=== PATIENT | male | born 1945 | race Caucasian/White ===

== ENCOUNTER 2019-05-14 15:24 | Outpatient (CLI) | payer MEDICARE, SELFPAY ==
--- NOTE | ~2019-05-14 | XR_ITS ---
EXAMINATION: XR chest 2V DATE: 05/14/2019 16:10 INDICATION: COPD TECHNIQUE: PA and lateral views of the chest were obtained. COMPARISON: Chest radiograph dated 02/02/[address] dated 08/05/2018 FINDINGS: Subtle increased lucency and architectural distortion in the bilateral upper lung zones consistent wi th emphysema better appreciated on prior CT. Calcified left lower lobe nodule consistent with old gra nulomatous disease. No other airspace opacities, pulmonary edema, pleural effusion or pneumothorax. T he cardiomediastinal silhouette is normal. There are bridging osteophytes at multiple levels in the s pine, consistent with diffuse idiopathic skeletal hyperostosis (DISH). IMPRESSION: 1. Emphysema. No acute cardiopulmonary disease. Reviewed, dictated and finalized at location A. ATIENT PHLEBOTOMIST
--- NOTE | 2019-05-14 15:44 | ECG_ITS ---
Measurements Intervals [place] Rate: 70 P: 30 DE: 147 QRS: 28 QRSD: 116 T: 42 QT: 395 QTc: 426 Interpretive Statements SINUS RHYTHM INCOMPLETE RIGHT BUNDLE BRANCH BLOCK BORDERLINE ST-T WAVE ABNORMALITY- ANTERIOR LEADS BASELINE ARTIFACT- I, II, III, AVR, AVF, V5 BORDERLINE ECG Electronically Signed On 05-14-2019 16:54:27 SCREEN PRINTING LOADER UNLOADER by Lico Perez D.O.
[2019-05-14 16:08] LABS: Basophils Absolute Auto 0.1 K/mm3 (0.0-0.1); Basophils Percent Auto 0.5 % (0.2-1.2); Eosinophils Absolute Auto 0.1 K/mm3 (0-0.3); Eosinophils Percent Auto 1.2 % (0-4.4); Hematocrit 46.9 % (42.0-52.0); Hemoglobin 15.7 g/dL (14.0-18.0); Immature Granulocyte Absolute 0.05 K/mm3 (0.00-0.031); Immature Granulocyte Percent A 0.5 % (0-0.5); Lymphocytes Absolute Auto 1.84 K/mm3 (0.9-3.2); Lymphocytes Percent Auto 19.6 % (18.3-44.2); Mean Corpuscular HGB Conc 33.5 g/dl (32-36); Mean Corpuscular Hemoglobin 31.1 pg (26-34); Mean Corpuscular Volume 92.9 fl (80-100); Monocytes Absolute Auto 0.8 K/mm3 (0.1-0.6); Monocytes Percent Auto 8.7 % (2.6-8.5); Neutrophils Absolute Auto 6.5 K/mm3 (1.3-6.7); Neutrophils Percent Auto 69.5 % (45.5-73.1); Platelet Count Result 164 k/mm3 (150-375); Red Blood Count 5.05 M/mm3 (4.6-6.20); Red Cell Distribution Width 12.7 % (11.5-14.5); White Blood Count 9.4 K/mm3 (4.5-10.0)
[2019-05-14 16:23] LABS: Albumin Level 3.9 g/dL (3.5-5.1); Blood Urea Nitrogen 17 mg/dL (9-20); Calcium 9.3 mg/dL (8.4-10.2); Carbon Dioxide 28 mmol/L (22-30); Chloride 103 mmol/L (98-107); Estimated Glomerular Filt Rate > 60; Glucose 110 mg/dL (75-110); Potassium 3.7 mmol/L (3.4-5.0); Sodium 140 mmol/L (137-145)
[2019-05-14 16:30] LABS: Hemoglobin A1C 6.3 % (<5.7)
[2019-05-14 17:30] LABS: Urine Cotinine NEGATIVE
== END 2019-05-14 15:25 | disposition home or self-care (01) ==
PROVIDERS: PCP Internal Medicine; Visit Provider Orthopaedic Surgery
DX: Z01.818 Encounter for other preprocedural examination (principal); M17.11 Unilateral primary osteoarthritis, right knee; J43.9 Emphysema, unspecified
CPT/HCPCS: 36415; 71046; 80048; 80307; 82040; 83036; 85025; 87070; 87077; 87186; 93005

== ENCOUNTER 2019-06-02 00:21 | Day surgery (SDC) | payer MEDICARE, SELFPAY ==
[2019-05-14 15:10] VITALS: BMI 36.4
[2019-05-14 15:31] VITALS: BP 142/58; PULSE 70; RESP 18; TEMP 36.8; O2SAT 96
--- NOTE | 2019-05-31 14:42 | HP_ITS ---
DATE OF SERVICE: 06/02/2019 ADMIT DIAGNOSIS: Degenerative joint disease, right knee. HISTORY OF PRESENT ILLNESS: The patient is a 73-year-old male patient of Dr. Zavaleta, who presents today for right total knee arthroplasty. He has been having pain in his knee for several years. He has severe lateral compartment arthritis as well as rheumatoid arthritis, and he is on multiple medications for his rheumatoid as well as meloxicam daily. He is not getting improvement from nonsurgical treatment. He had a cortisone injection last October, which only helped for several weeks. He has reached a point where the pain is bothering him on a daily basis and he would rather proceed with total knee at this point rather than continuing nonsurgical treatment. PAST MEDICAL HISTORY: Again, he has had a history of rheumatoid arthritis. He does have a history of cancer in the past too. PAST SURGICAL HISTORY: He had low back surgery back in February 2018. He has had his left knee replaced more than [address] Andrade. CURRENT MEDICATIONS: He takes doxazosin 2 mg 2 tablets at bedtime, Enbrel injection, hydrochlorothiazide 25 mg daily. Long-time narcotic use, at this point he is using 5 mg hydrocodone 4-5 pills a day and has done this for over a couple of years, meloxicam 7.5 mg daily, omeprazole 40 mg daily, pravastatin 20 mg daily, prednisone 5 mg daily, and temazepam 15 mg at bedtime. ALLERGIES: ALLERGIC TO IODINE. SOCIAL HISTORY: He is a nonsmoker. PHYSICAL EXAM: VITAL SIGNS: He is 5 feet 7 inches, 240 pounds. BMI is 37.6. HEENT: Grossly normal. LUNGS: Clear bilaterally. HEART: Regular rate and rhythm. EXTREMITIES: The right leg, he has tingling in the lateral thigh and the anterior thigh, medial to the lateral lower leg and bottom of the foot as well as the front of the knee. States this is chronic from his previous back problems. Mild varus and valgus laxity to the knee. Range of motion is 5-130. Moderately large effusion. HIP: He has some mild groin pain with range of motion. Stinchfield is negative. 2+ dorsalis pedis and posterior tibial pulse. Absent knee jerk and ankle jerk on the right. 1+ edema in both lower extremities. 5/5 muscle strength in all muscle groups, right lower extremity. X-RAYS: Demonstrate [id number] arthritis, lateral compartment. He has a large loose body, posterior aspect of the knee, has 13.5 degrees of valgus alignment. IMPRESSION: The patient has severe lateral compartment arthritis, superimposed rheumatoid arthritis, continued pain in the knee. Would like to proceed with total knee. Surgical procedure as well as risks and complications were discussed. All questions were answered and we will proceed. The patient will stop his Enbrel 2 weeks prior to surgery, any aspirin, ibuprofen, or meloxicam 1 week prior to surgery. He will continue with his prednisone through the time of surgery, but we will use a week antibiotics postoperatively because of this. The patient has had a long-standing history of narcotic use and may have a difficult time with pain control and this was discussed in detail as well. The other risks and complications of surgery were discussed in detail and all questions were answered. We will proceed. The patient will see Dr. Zavaleta for presurgical clearance. His nasal swab did grow oxacillin-sensitive Staph aureus. He has been decolonizing as of 05/08. His hemoglobin is 15.7, platelets are 164, creatinine 1, GFR is greater than 60. D I MT: Shree
[2019-06-02] VITALS (11 sets, daily range): BP systolic 120–160; BP diastolic 50–75; PULSE 69–92; RESP 10–20; TEMP 36.2–37; O2SAT 92–100; BMI 36.2
--- NOTE | ~2019-06-02 | XR_ITS ---
EXAMINATION: XR knee RT 2V DATE: 06/02/2019 16:20 INDICATION: Postoperative evaluation following right total knee arthroplasty. TECHNIQUE: Anteroposterior and lateral views of the right knee were obtained. COMPARISON: None. FINDINGS: Right total knee arthroplasty with patellar resurfacing appears well seated and in near anatomic alig nment. No fractures identified. Expected postoperative subcutaneous and intra-articular gas. IMPRESSION: 1. Right total knee arthroplasty, negative for postoperative purposes. Reviewed, dictated and finalized at location A. [employer]
--- NOTE | 2019-06-02 08:28 | WPDANESEPPF ---
Anes - Initial Pre Proc Eval Procedure: Operation Date: 06/02/19 12:00 Proposed Procedures p Right Total Knee Arthroplasty - Toi Andrade MD Date/Time: 06/02/19 08:28 Surgeon: Toi Andrade MD Pre Op Diagnosis: OA Right Knee Patient Data Age: 73 Gender: M Height: 1.75 m Weight: 112 kg Last Vital Signs Temp 36.8 C 05/14/19 15:31 Pulse 70 05/14/19 15:31 Resp 18 05/14/19 15:31 BP 142/58 H 05/14/19 15:31 Pulse Ox 96 05/14/19 15:31 Allergies Allergy/AdvReac Type Severity Reaction Status Date / Time infliximab [From Remicade] Allergy Unknown Itching Verified 05/14/19 15:19 Contrast Media Allergy Severe HOT, HIVES Uncoded 05/14/19 15:20 Home Medications Medication Instructions Recorded Confirmed Type albuterol sulfate 2.5 mg INHALATION Q4H PRN 02/23/19 05/14/19 History albuterol sulfate 90 mcg/actuation 1 puff INHALATION PRN PRN 02/23/19 05/14/19 History aerosol inhaler aspirin 81 mg tablet,delayed 81 mg PO DAILY 02/23/19 05/14/19 History release budesonide-formoterol HFA 160 2 puff INHALATION PRN PRN 02/23/19 05/14/19 History mcg-4.5 mcg/actuation aerosol inhaler etanercept 50 mg/mL (1 mL) 50 mg SUB-Q WEEKLY 02/23/19 05/14/19 History subcutaneous pen injector ipratropium 0.5 mg-albuterol 3 mg 3 ml INHALATION PRN PRN 02/23/19 05/14/19 History (2.5 mg base)/3 mL nebulization soln meloxicam 7.5 mg tablet 7.5 mg PO DAILY tablet 02/23/19 05/14/19 History prednisone 5 mg tablet 10 mg PO HS tablet 02/23/19 05/14/19 History temazepam 30 mg capsule 30 mg PO .AT HS #30 cap 04/15/19 05/14/19 Rx magnesium 250 mg PO DAILY 05/14/19 05/14/19 History omega 2-rkc-ejp-fish oil [Fish Oil] 1 cap PO BID 05/14/19 05/14/19 History oxycodone-acetaminophen 0.5 tablet PO Q2H PRN 05/14/19 05/14/19 History diltiazem HCl 180 mg 180 mg PO DAILY #90 cap 05/18/19 Rx capsule,extended release 24 hr doxazosin 2 mg tablet 4 mg PO HS #180 tablet 05/18/19 Rx fluticasone propionate 50 2 spray NASAL PRN PRN #47.4 ml 05/18/19 Rx mcg/actuation nasal spray,suspension omeprazole 40 mg capsule,delayed 40 mg PO DAILY #90 cap 05/18/19 Rx release pravastatin 20 mg tablet 20 mg PO HS #90 tablet 05/18/19 Rx ECG: Date of Service: 05/14/19 Procedure(s): CA 12 lead EKG Accession Number(s): [id number] cc: ~ Measurements Intervals [place] Rate: 70 P: 30 [place]: 147 QRS: 28 QRSD: 116 T: 42 QT: 395 QTc: 426 Interpretive Statements SINUS RHYTHM INCOMPLETE RIGHT BUNDLE BRANCH BLOCK BORDERLINE ST-T WAVE ABNORMALITY- ANTERIOR LEADS BASELINE ARTIFACT- I, II, III, AVR, AVF, V5 BORDERLINE ECG Electronically Signed On 05-14-2019 16:54:27 BOILER SHOP SUPERVISOR by Lico Perez D.O. Dictated By: Lico Perez DO 05/14/19 1616 Patient hx anesthesia problems: none Family hx anesthesia problems: none PMFSH Past Medical History Medical History (Updated 06/02/19 @ 08:30 by Pankaj Werner MD) Benign essential hypertension Chronic low back pain Chronic obstructive pulmonary disease, unspecified Elevated LFTs Follicular lymphoma grade II, unspecified site Hypercholesterolemia Lung nodule Mixed hyperlipidemia Obesity Obstructive sleep apnea (adult) (pediatric) Rheumatoid arthritis involving multiple sites Splenomegaly Surgical History Surgical History (Updated 06/02/19 @ 08:30 by Pankaj Werner MD) History of back surgery Social History Social History Smoking status: Former smoker Smoking end date: 04/07/86 Alcohol intake: never Anes - Eval Final PreProcedure Day of Procedure 06/02/19 08:28 Patient weight: obese Heart: regular
[2019-06-02] MEDS: LACTATED RINGERS 1,000 ML 30 ML IV CONT ×2 (10:10→16:00)
[2019-06-02] MEDS: IBUPROFEN IV 800 MG/200 ML 800 MG/200 ML BAG 400 MG IVPB (10:46)
--- NOTE | 2019-06-02 12:14 | SUR.PREOP ---
1050-PT AND FAMILY AWARE PREVIOUS SURGEON DELAYS ROOM 30 MINUTES.
--- NOTE | 2019-06-02 12:26 | WPDHPUPDATE1 ---
History and Physical Update Update Date/Time: 06/02/19 12:26 History and Physical has been reviewed, including an updated exam of the patient. There are NO changes in the patient's condition.Also, Patient has had numbness entire left lower extremity since back surgery for sciatica in 2018. Motor function is intact right leg. Risks, benefits, and alternatives have been discussed and questions answered. Patient agrees to proceed with procedure.
[2019-06-02] MEDS: ceFAZolin SODIUM 1 GM VIAL 3 GM IRRIGATION (12:28)
[2019-06-02] MEDS: GENTAMICIN BONE CEMENT REFOBACIN 1 EACH TOPICAL (12:28)
[2019-06-02] MEDS: ceFAZolin 2 GM/D5W 50 ML 2 GM/50 ML BAG IVPB (12:28)
[2019-06-02] MEDS: ceFAZolin SODIUM 1 GM VIAL 2 GM IV PUSH (14:57)
--- NOTE | 2019-06-02 15:37 | PM.PROC ---
Procedure Note - Detailed Date of procedure: 06/02/19 Pre-op diagnosis: OA Right Knee Post-op diagnosis: same Procedure performed: Right total knee arthroplasty Description of procedure: Patient was brought to the operating room and general anesthesia was administered. the right knee was prepped draped usual fashion. He received 2 g of Ancef weight based vancomycin preoperatively 1 g of tranexamic acid. The right knee was prepped draped usual fashion the was exsanguinated tourniquet elevated to 300 mm of mercury. A 7 inch longitudinal midline incision was used vastus medialis splitting approach utilized. Infrapatellar and suprapatellar fat pads were excised partial synovectomy carried out because of the rheumatoid arthritis the plan to do a patellar resurfacing. The patella measured 24 mm in thickness was cut to 16 mm. A protector cap was placed on the bone the bone quality was very good. A guide dave was inserted down the femoral canal after aspiration canal contents use the 5? valgus cutting bushing 11 mm of bone removed the distal femur of the intact articular cartilage medially. This removed about 6 laterally. This next the tibial plateau was cut. our 1st cut did not quite get to the back of these defect of lateral tibial plateaus additional 2 mm of bone was removed medially and this gave us a flat tibial surface. Again bone quality was very good. Meniscal remnants were excised PCL wrist released and we had flexion gaps of 8 mm medially 14 laterally. there was hypoplasia lateral femoral condyle was bone wear. In extension the knee was a little bit tighter laterally than medially. He had a 10? anatomic valgus alignment preoperatively and did have some pseudolaxity to varus stress. I could not see an obvious difference in medial collateral with laminar spreaders. We avoided any released the medial capsule from the tibia. the sizing guide was placed on the femur and we externally rotated choosing 6? external rotation which was slightly internal the [place] that on not external to the trans epicondylar axis. posterior referencing pin guides were placed. the size 70 cutting block was going to be a little bit wide and anterior cut showed we had room to go down to a 67.5 without notching it I put a couple degrees of flexion on the distal femur to avoid notch and a femur was cut to the 70 cemented 67.5 vanguard femur. one trialing we had ample time 90? of flexion with 10 insert. The tibia was sized to a 71 which fit line to line livestock auctioneer lateral to anteromedial at the proper rotation determined off the anterior surface of the tibial plateau and medial 3rd tubercle and this foot alignment. This was punched. The 12 PS insert the trial little bit loose and had 90? and lacked about 5 or 6? of extension. we cut 2 more mm of bone from the distal femur and chamfer cuts revisited. Posterior femoral osteophyte was removed at this time central posterior capsular release performed and we trialed again with the 13 insert which had very nice stability at 90? with a stable anterior drawer opening up medially about 1 mm laterally the mm. We will lacked about 2? of extension and there was no play laterally only a mm opening medially. the IP band was palpably quite tight. I pie crusted the lateral capsule through the IP band which did nice job of providing very subtle degree relaxation without transverse release were visible separation. This gave us about a mm opening in extension medially but we still had a positive bounce. I elected to remove 1 more mm bone the distal femur chamfer cuts revisited and on Re trialing the knee came out to full extension with a negative bounce 1-2 mm medial and lateral opening at 0? and 5? of flexion appropriate stability 90? and gravity flexion was 140. The patella was sized to the 34 thin Annika house patellar thickness. patellar tracking was spared this point tourniquet up. Step drill was used to make multiple perforations in the denser bone of the tibial
[2019-06-02] MEDS: ACETAMINOPHEN 500 MG TABLET 1000 MG PO ×2 (17:16→23:37)
--- NOTE | 2019-06-02 17:31 | ADMGEN ---
This patient, Dilan Weaver, was admitted to [facility] S[facility] Room 323-01. Patient/family oriented to hospital policies and general routines including ID bracelet, bed and alarms, visiting hours, pain management, procedures, bathroom and other care routines, personal items, smoking policy, room service/diet, and visiting hours. Valuables list has been completed. Information on how to activate the Rapid Response Team has been discussed. Patient/Family are encouraged to report perceived risks to care and to ask questions if they do not understand what they are told or what they should do.
[2019-06-02] MEDS: DEXTROSE 5%/0.45% SOD CHL 1,000 ML 100 ML IV CONT (19:03)
[2019-06-02] MEDS: SENNOSIDES 8.6 MG TABLET PO (19:05)
[2019-06-02] MEDS: DOCUSATE SODIUM 100 MG CAPSULE PO (19:07)
[2019-06-02] MEDS: GABAPENTIN 300 MG CAPSULE PO (21:58)
[2019-06-02] MEDS: DOXAZOSIN MESYLATE 4 MG TABLET PO (21:58)
[2019-06-02] MEDS: PRAVASTATIN SODIUM 20 MG TABLET PO (21:58)
[2019-06-02] MEDS: predniSONE 10 MG TABLET PO (21:59)
[2019-06-03 02:15] VITALS: BP 144/66; PULSE 64; RESP 20; TEMP 36.8; O2SAT 93
[2019-06-03] MEDS: ONDANSETRON INJ 4 MG/2 ML VIAL IV PUSH (04:15)
[2019-06-03] MEDS: ACETAMINOPHEN 500 MG TABLET 1000 MG PO ×2 (05:41→11:35)
[2019-06-03 06:00] VITALS: BP 130/59; PULSE 70; RESP 20; TEMP 36.4; O2SAT 94
[2019-06-03 06:24] LABS: Basophils Percent Auto 0.1 % (0.2-1.2); Hematocrit 44.1 % (42.0-52.0); Hemoglobin 15.1 g/dL (14.0-18.0); Immature Granulocyte Absolute 0.07 K/mm3 (0.00-0.031); Immature Granulocyte Percent A 0.4 % (0-0.5); Lymphocytes Absolute Auto 0.81 K/mm3 (0.9-3.2); Lymphocytes Percent Auto 5.1 % (18.3-44.2); Mean Corpuscular HGB Conc 34.2 g/dl (32-36); Mean Corpuscular Hemoglobin 31.3 pg (26-34); Mean Corpuscular Volume 91.3 fl (80-100); Monocytes Absolute Auto 0.7 K/mm3 (0.1-0.6); Monocytes Percent Auto 4.4 % (2.6-8.5); Neutrophils Absolute Auto 14.2 K/mm3 (1.3-6.7); Platelet Count Result 149 k/mm3 (150-375); Red Blood Count 4.83 M/mm3 (4.6-6.20); Red Cell Distribution Width 12.5 % (11.5-14.5); White Blood Count 15.8 K/mm3 (4.5-10.0)
[2019-06-03 06:45] LABS: Blood Urea Nitrogen 10 mg/dL (9-20); Calcium 8.7 mg/dL (8.4-10.2); Carbon Dioxide 24 mmol/L (22-30); Chloride 98 mmol/L (98-107); Estimated CRCL calculation 78 ml/min; Estimated Glomerular Filt Rate > 60; Glucose 207 mg/dL (75-110); Potassium 4.1 mmol/L (3.4-5.0); Sodium 135 mmol/L (137-145)
[2019-06-03] MEDS: DEXTROSE 5%/0.45% SOD CHL 1,000 ML 100 ML IV CONT (06:53)
[2019-06-03] MEDS: GABAPENTIN 300 MG CAPSULE PO ×2 (06:53→14:33)
--- NOTE | 2019-06-03 07:07 | PM.PNORT ---
Progress Note: A&P Additional Plan POD 1 alert pt did have nausea last night,doing better today, pt was up to chair last night, pain is well controlled, wd-dry, wiggles toes, labs-noted, plan for pt to work with PT today then send home this afternoon Subjective Subjective Date/Time Seen: 06/03/19 07:07 Objective Data Vital Signs Vital Signs: Vital Signs - 24 hr 06/02/19 10:09 06/02/19 16:00 06/02/19 16:15 Temperature 36.7 C 36.2 C L Pulse Rate 92 83 85 Respiratory Rate 20 10 L 17 Blood Pressure 157/75 H 140/68 121/51 L Pulse Oximetry 94 94 92 06/02/19 16:30 06/02/19 16:45 06/02/19 17:00 Temperature 36.7 C Pulse Rate 77 72 70 Respiratory Rate 13 11 L 14 Blood Pressure 122/64 120/50 L 160/61 H Pulse Oximetry 93 96 97 06/02/19 17:19 06/02/19 18:00 06/02/19 19:20 Temperature 36.7 C 36.7 C 36.4 C Pulse Rate 71 69 70 Respiratory Rate 16 16 18 Blood Pressure 145/61 H 143/64 H 152/72 H Pulse Oximetry 97 100 99 06/02/19 20:56 06/02/19 21:28 06/03/19 02:15 Temperature 37.0 C 36.8 C Pulse Rate 75 79 64 Respiratory Rate 16 20 20 Blood Pressure 150/66 H 144/66 H Pulse Oximetry 96 98 93 06/03/19 06:00 Temperature 36.4 C L Pulse Rate 70 Respiratory Rate 20 Blood Pressure 130/59 L Pulse Oximetry 94 Intake/Output Intake/Output: Intake & Output 05/31/19 06/01/19 06/02/19 06/03/19 23:59 23:59 23:59 23:59 Intake Total 790 1600 Output Total 50 2000 Balance 740 -400 Meds/Results Medications: Active Medications Generic Name Dose Route Start Last Admin Trade Name Freq PRN Reason Stop Dose Admin Acetaminophen 1,000 mg 06/02/19 18:00 06/03/19 05:41 Tylenol Tablet PO 1,000 mg Q6HR ELIAS Administration Albuterol 2.5 mg 06/02/19 16:52 Albuterol Sulf Neb 2.5 Mg/3 Ml INHALATION Q4H PRN Shortness Of Breath Albuterol 1 puff 06/02/19 16:52 Proventil Hfa INHALATION PRN PRN Shortness Of Breath Apixaban 2.5 mg 06/03/19 09:00 Eliquis PO 06/14/19 21:01 Q12HR [facility] Budesonide/Formoterol Fumarate 2 puff 06/02/19 16:52 Symbicort 160-4.5 Mcg (*Sp) Inhaler INHALATION PRN PRN Shortness Of Breath Celecoxib 100 mg 06/03/19 08:00 Celebrex PO DAILY@0800 [facility] Cephalexin HCl 500 mg 06/03/19 21:00 Keflex Capsule PO 06/15/19 12:01 Q6HR [facility] Diltiazem HCl 180 mg 06/03/19 09:00 Cardizem Cd PO DAILY [facility] Docusate Sodium 100 mg 06/02/19 17:00 06/02/19 19:07 Colace Capsule PO 100 mg BID ELIAS Administration Doxazosin Mesylate 4 mg 06/02/19 21:00 06/02/19 21:58 Cardura PO 4 mg HS ELIAS Administration Fluticasone Propionate 2 spray 06/02/19 16:52 Flonase 0.05% Nasal [place] NASAL PRN PRN Congestion Gabapentin 300 mg 06/02/19 22:00 06/03/19 06:53 Neurontin PO 300 mg Q8HR ELIAS Administration Cefazolin Sodium 1 gm in 50 mls @ 100 mls/hr 06/02/19 23:00 06/03/19 07:00 Ancef 1 Gm/D5w 50 Ml Pm IVPB 06/03/19 15:29 100 mls/hr Q8H ELIAS Administration Vancomycin HCl 1,000 mg in 250 mls @ 250 mls/hr 06/02/19 22:00 06/02/19 22:55 Vancomycin 1,000 Mg/D5w 250 Ml IVPB 06/03/19 10:59 Infused Q12H ELIAS Infusion Dextrose/Sodium Chloride 1,000 mls @ 100 mls/hr 06/02/19 17:10 06/03/19 06:53 Dextrose 5% Sodium Chloride 0.45% IV CONT 100 mls/hr .Q10H ELIAS Administration Magnesium Gluconate 13.5 mg 06/03/19 09:00 Magonate PO 07/03/19 09:01 DAILY ELIAS Naloxone HCl 0.1 mg 06/02/19 16:52 Narcan IV PUSH Q2M PRN Opiate Reversal Non-Formulary Medication 3 ml 06/02/19 16:52 Ipratropium-Albuterol INHALATION PRN PRN Shortness Of Breath Oxycodone HCl 5 mg 06/02/19 17:00 06/03/19 04:57 Roxicodone Ir Tablet PO 5 mg Q4HR ELIAS Administration Oxycodone HCl 5 mg 06/02/19 16:52 06/02/19 20:10 Roxicodone Ir Tablet PO 5 mg Q4H PRN Administration Pain Rated 7-10 Oxycodone HCl 10 mg 06/02/19 21:00 05/09
--- NOTE | 2019-06-03 07:29 | PM.PNORT ---
Progress Note: A&P Additional Plan After discussing with Dr Andrade pt will resume his normal pain management regime [facility] Subjective Subjective Date/Time Seen: 06/03/19 07:29 Objective Data Vital Signs Vital Signs: Vital Signs - 24 hr 06/02/19 10:09 06/02/19 16:00 06/02/19 16:15 Temperature 36.7 C 36.2 C L Pulse Rate 92 83 85 Respiratory Rate 20 10 L 17 Blood Pressure 157/75 H 140/68 121/51 L Pulse Oximetry 94 94 92 06/02/19 16:30 06/02/19 16:45 06/02/19 17:00 Temperature 36.7 C Pulse Rate 77 72 70 Respiratory Rate 13 11 L 14 Blood Pressure 122/64 120/50 L 160/61 H Pulse Oximetry 93 96 97 06/02/19 17:19 06/02/19 18:00 06/02/19 19:20 Temperature 36.7 C 36.7 C 36.4 C Pulse Rate 71 69 70 Respiratory Rate 16 16 18 Blood Pressure 145/61 H 143/64 H 152/72 H Pulse Oximetry 97 100 99 06/02/19 20:56 06/02/19 21:28 06/03/19 02:15 Temperature 37.0 C 36.8 C Pulse Rate 75 79 64 Respiratory Rate 16 20 20 Blood Pressure 150/66 H 144/66 H Pulse Oximetry 96 98 93 06/03/19 06:00 Temperature 36.4 C L Pulse Rate 70 Respiratory Rate 20 Blood Pressure 130/59 L Pulse Oximetry 94 Intake/Output Intake/Output: Intake & Output 05/31/19 06/01/19 06/02/19 06/03/19 23:59 23:59 23:59 23:59 Intake Total 790 1600 Output Total 50 2000 Balance 740 -400 Meds/Results Medications: Active Medications Generic Name Dose Route Start Last Admin Trade Name Freq PRN Reason Stop Dose Admin Acetaminophen 1,000 mg 06/02/19 18:00 06/03/19 05:41 Tylenol Tablet PO 1,000 mg Q6HR ELIAS Administration Albuterol 2.5 mg 06/02/19 16:52 Albuterol Sulf Neb 2.5 Mg/3 Ml INHALATION Q4H PRN Shortness Of Breath Albuterol 1 puff 06/02/19 16:52 Proventil Hfa INHALATION PRN PRN Shortness Of Breath Apixaban 2.5 mg 06/03/19 09:00 Eliquis PO 06/14/19 21:01 Q12HR [facility] Budesonide/Formoterol Fumarate 2 puff 06/02/19 16:52 Symbicort 160-4.5 Mcg (*Sp) Inhaler INHALATION PRN PRN Shortness Of Breath Celecoxib 100 mg 06/03/19 08:00 Celebrex PO DAILY@0800 [facility] Cephalexin HCl 500 mg 06/03/19 21:00 Keflex Capsule PO 06/15/19 12:01 Q6HR [facility] Diltiazem HCl 180 mg 06/03/19 09:00 Cardizem Cd PO DAILY [facility] Docusate Sodium 100 mg 06/02/19 17:00 06/02/19 19:07 Colace Capsule PO 100 mg BID ELIAS Administration Doxazosin Mesylate 4 mg 06/02/19 21:00 06/02/19 21:58 Cardura PO 4 mg HS [facility] Administration Fluticasone Propionate 2 spray 06/02/19 16:52 Flonase 0.05% Nasal [place] NASAL PRN PRN Congestion Gabapentin 300 mg 06/02/19 22:00 06/03/19 06:53 Neurontin PO 300 mg Q8HR ELIAS Administration Cefazolin Sodium 1 gm in 50 mls @ 100 mls/hr 06/02/19 23:00 06/03/19 07:00 Ancef 1 Gm/D5w 50 Ml Pm IVPB 06/03/19 15:29 100 mls/hr Q8H ELIAS Administration Vancomycin HCl 1,000 mg in 250 mls @ 250 mls/hr 06/02/19 22:00 06/02/19 22:55 Vancomycin 1,000 Mg/D5w 250 Ml IVPB 06/03/19 10:59 Infused Q12H ELIAS Infusion Dextrose/Sodium Chloride 1,000 mls @ 100 mls/hr 06/02/19 17:10 06/03/19 06:53 Dextrose 5% Sodium Chloride 0.45% IV CONT 100 mls/hr .Q10H ELIAS Administration Magnesium Gluconate 13.5 mg 06/03/19 09:00 Magonate PO 07/03/19 09:01 DAILY [facility] Naloxone HCl 0.1 mg 06/02/19 16:52 Narcan IV PUSH Q2M PRN Opiate Reversal Non-Formulary Medication 3 ml 06/02/19 16:52 Ipratropium-Albuterol INHALATION PRN PRN Shortness Of Breath Oxycodone HCl 5 mg 06/02/19 17:00 06/03/19 04:57 Roxicodone Ir Tablet PO 5 mg Q4HR ELIAS Administration Oxycodone HCl 5 mg 06/02/19 16:52 06/02/19 20:10 Roxicodone Ir Tablet PO 5 mg Q4H PRN Administration Pain Rated 7-10 Oxycodone HCl 10 mg 06/02/19 21:00 06/02/19 21:57 Oxycontin Sr 12hr PO 10 mg Q12HR ELIAS Administration Pantopra
[2019-06-03] MEDS: APIXABAN 2.5 MG TABLET PO (08:17)
[2019-06-03] MEDS: PANTOPRAZOLE 40 MG TABLET PO (08:18)
[2019-06-03] MEDS: SENNOSIDES 8.6 MG TABLET PO (08:18)
[2019-06-03] MEDS: polyethylene glycoL 3350 17 GM POWD.PACK PO (08:19)
[2019-06-03] MEDS: CELECOXIB 100 MG CAPSULE PO (11:34)
[2019-06-03] MEDS: DOCUSATE SODIUM 100 MG CAPSULE PO (11:35)
--- NOTE | 2019-06-03 13:08 | PM.IMCN ---
Assessment and Plan Assessment and plan (1) Rheumatoid arthritis involving multiple sites: Code(s): M06.9 - Rheumatoid arthritis, unspecified Status: Acute Assessment and Plan: Pt seen specialist in [place] pt is on enbrel, home medications ordered as before, follow up as before, pt medically stable for discharge (2) Obstructive sleep apnea (adult) (pediatric): Code(s): G47.33 - Obstructive sleep apnea (adult) (pediatric) Status: Acute Assessment and Plan: Pt wearing CPAP machine (3) History of back surgery: Code(s): Z98.890 - Other specified postprocedural states Status: Acute Assessment and Plan: Pt seen pain management in [place] history of sarah spurs (4) Mixed hyperlipidemia: Code(s): E78.2 - Mixed hyperlipidemia Status: Acute Assessment and Plan: Pt is on pravastatin (5) Chronic obstructive pulmonary disease, unspecified: Code(s): J44.9 - Chronic obstructive pulmonary disease, unspecified Status: Acute Assessment and Plan: Pt is on albuterol and symbicort inhalers (6) Chronic low back pain: Code(s): M54.5 - Low back pain; G89.29 - Other chronic pain Status: Acute (7) Benign essential hypertension: Code(s): I10 - Essential (primary) hypertension Status: Acute Assessment and Plan: Pt is on diltiazem (8) Benign prostatic hyperplasia with lower urinary tract symptoms: Code(s): N40.1 - Benign prostatic hyperplasia with lower urinary tract symptoms Status: Acute Assessment and Plan: Pt is on doxazosin (9) Obesity: Code(s): E66.9 - Obesity, unspecified Status: Chronic Assessment and Plan: Adviced to loose weight (10) S/P total knee arthroplasty: Code(s): Z96.659 - Presence of unspecified artificial knee joint Status: Acute Assessment and Plan: Continue orthopedics advice and routine follow up (11) Follicular lymphoma grade II, unspecified site: Code(s): C82.10 - Follicular lymphoma grade II, unspecified site Status: Acute Assessment and Plan: Problem which developed after methrotrexate use HPI Data of Consult Consult date: 06/03/19 Requesting Physician: Toi Andrade MD Primary Care Provider: Dre Zavaleta DO Consult Narrative Narrative: Dilan Weaver is a 73 year old male admitted for right total knee arthroplasty. He has been having pain in his knee for several years. History of RA, copd, back pain with spurs. Pt is doing well post op day 1, wants to go home. Has good doctors, dr Martinez, dr Marvin, and RA and Pain md in [facility]. Review of Systems Review of Systems: All systems reviewed & are unremarkable except as noted in HPI and below Musculoskeletal: Comments: with R knee pain and stifness PMFSH Past Medical History Medical History Benign essential hypertension Chronic low back pain Chronic obstructive pulmonary disease, unspecified Elevated LFTs Follicular lymphoma grade II, unspecified site Hypercholesterolemia Lung nodule Mixed hyperlipidemia Obesity Obstructive sleep apnea (adult) (pediatric) Rheumatoid arthritis involving multiple sites Splenomegaly Surgical History Surgical History History of back surgery Family History Family History Mother Family history of osteoarthritis Family history of congestive heart failure, Onset Age: 90 Family history of malignant neoplasm of breast in first degree relative Sibling Carcinoma of colon, Onset Age: 66 Family history of lupus erythematosus, Onset Age: 21 Family history of primary malignant neoplasm of liver Father Acute myocardial infarction Hypertension, Onset Age: 68 Family history of cardiovascular disease, Onset Age:
--- NOTE | 2019-06-03 13:26 | P.PNAN_ITS ---
Anes - Prog Note Post-Op Date/Time: 06/03/19 13:26 Cardiovascular status: normal Respiratory status: normal Airway patency: baseline Mental status: baseline Post-Op hydration status: normal Vital Signs: Last Vital Signs Temp 36.4 C L 06/03/19 06:00 Pulse 70 06/03/19 06:00 Resp 20 06/03/19 06:00 BP 130/59 L 06/03/19 06:00 Pulse Ox 94 06/03/19 06:00 Pain Score (VAS): 0/10. Patient resting in bed at time of assessment, appears comfortable. Support person at bedside. I/O: Intake & Output 06/02/19 06/03/19 06/03/19 23:59 07:59 15:59 Intake Total 540 1650 960 Output Total 50 2000 Balance 490 -350 960 Laboratory Tests 06/03/19 06:05 06/03/19 06:05 06/03/19 06/03/19 06:05 06:05 WBC 15.8 H RBC 4.83 Hgb 15.1 Hct 44.1 MCV 91.3 MCH 31.3 MCHC 34.2 RDW 12.5 Plt Count 149 L MPV 11.0 H Immature Gran % (Auto) 0.4 Neut % (Auto) 90.0 H Lymph % (Auto) 5.1 L [place] % (Auto) 4.4 Eos % (Auto) 0.0 Baso % (Auto) 0.1 L Lymph # (Auto) 0.81 L [place] # (Auto) 0.7 H Eos # (Auto) 0.0 Baso # (Auto) 0.0 Abs Immat Gran (auto) 0.07 H Absolute Neuts (auto) 14.2 H Absolute Nucleated RBC 0.0 Nucleated RBC % 0.0 Sodium 135 L Potassium 4.1 Chloride 98 Carbon Dioxide 24 BUN 10 D Creatinine 0.90 Estim Creat Clear Calc 78 Estimated GFR > 60 Glucose 207 H Calcium 8.7 Post-procedural complaints: none Patient Feedback: Patient satisfied with anesthetic care.
[2019-06-03 14:00] VITALS: BP 131/64; PULSE 70; RESP 18; TEMP 36.8; O2SAT 93
--- NOTE | 2019-06-04 07:31 | DS_ITS ---
DATE OF DISCHARGE: 06/03/2019 DIAGNOSIS: Degenerative joint disease, right knee. HOSPITAL COURSE: The patient is a 73-year-old male, who underwent right total knee arthroplasty by Dr. Andrade on 06/02/2019, underwent procedure without any complications. Postoperatively, he has been afebrile. Vital signs were stable. He still complains of numbness in the leg, which is chronic from previous back problems. His wound is dry. He has a Mediplex dressing over it. He is weightbearing as tolerated. He did have some nausea on the day of surgery in the evening, this dissipated on postop day 1. His pain overall is well controlled. He is on gabapentin as well as oxycodone and OxyContin. He has had long-term use of narcotics due to chronic back problems. He willl use his narcotics from pain management to control pain at home. He is on Eliquis for 2 weeks followed by aspirin for DVT prophylaxis. On postop day 1, his hemoglobin is 15.1, platelets are 149. He is alert, doing well. The patient will see Physical Therapy today and then be discharged home. The patient was advised to keep leg elevated at home to prevent swelling, but also to do his exercises regularly. He had his left knee replaced in the past, he is well aware of the recovery. He is also on Celebrex 100 mg a day. He will be on a week of Keflex due to his history of RA as well as has positive nasal swab for oxacillin-sensitive Staph aureus. He will resume his Enbrel in 2 weeks. He is also going home on MiraLAX and Senokot for constipation. He is advised if any questions or concerns once he goes home to call the office, otherwise, we will see him at his appointed date. Sarah I MT: Shree DIOP
== END 2019-06-03 17:27 | disposition home or self-care (01) ==
LOC: ANHSURGERY 09:50 → ANH3MEDSUR 16:59
PROVIDERS: PCP Internal Medicine; Visit Provider Orthopaedic Surgery
PROC: (CPT 27447; principal; 2019-06-02 12:00)
DX: M17.11 Unilateral primary osteoarthritis, right knee (principal); I10 Essential (primary) hypertension; E78.2 Mixed hyperlipidemia; J44.9 Chronic obstructive pulmonary disease, unspecified; G47.33 Obstructive sleep apnea (adult) (pediatric); M06.9 Rheumatoid arthritis, unspecified; C82.10 Follicular lymphoma grade II, unspecified site; M54.5 Low back pain; G89.29 Other chronic pain; N40.1 Benign prostatic hyperplasia with lower urinary tract symptoms; Z87.891 Personal history of nicotine dependence; E66.9 Obesity, unspecified; Z68.36 Body mass index [BMI] 36.0-36.9, adult; Z79.891 Long term (current) use of opiate analgesic
CPT/HCPCS: 27447; 36415; 73560; 80048; 85025; 86850; 86900; 86901; 97110; 97116; 97161; 97165; 97535; A9270; C1713; C1776; J0131; J0171; J0690; J1100; J1170; J1741; J2270; J2405; J2704; J2795; J3010; J3370; J7120; J7512

== ENCOUNTER 2019-06-14 16:28 | Outpatient (CLI) | payer MEDICARE, SELFPAY ==
--- NOTE | ~2019-06-14 | US_ITS ---
EXAMINATION: US venous doppler LE EXAM DATE: 06/14/2019 17:28 INDICATION: Right leg swelling, knee replacement. TECHNIQUE: Multiple grayscale, color flow and Doppler images of the right lower extremity deep venous system obtained and reviewed. Comparison is made to prior examination from 02/02/2016. FINDINGS: RIGHT SIDE Common femoral: -------- Normal. Profunda femoral: ------- Normal. Femoral: Normal. Popliteal: Normal. Posterior tibial: ---------Thrombosed. Peroneal: Thrombosed. Gastrocnemius: Not visualized. Soleus: Not visualized. Greater saphenous: ----- Normal. Lesser saphenous: ------ Not visualized. IMPRESSION: 1. Positive for right calf DVT (PT, peroneal). STAT hold and call. I confirmed with Pearl that patient is in waiting room, and who is notifying ord ering doctor of results. Patient will be given instructions at that time. Reviewed, dictated and finalized at location A. IMPRESSION: 1. Positive for right calf DVT (PT, peroneal). STAT hold and call. I confirmed with Pearl that patient is in waiting room, an d who is notifying ordering doctor of results. Patient will be given instructio ns at that time.
== END 2019-06-14 16:29 | disposition home or self-care (01) ==
LOC: ANHIMG 16:52
PROVIDERS: PCP Internal Medicine; Visit Provider Orthopaedic Surgery
DX: I82.451 Acute embolism and thrombosis of right peroneal vein (principal)
CPT/HCPCS: 93971

== ENCOUNTER 2019-06-14 18:12 | Emergency (ER) | payer MEDICARE, SELFPAY ==
--- NOTE | ~2019-06-14 | CT_ITS ---
EXAMINATION: CT abdomen pelvis wo con EXAM DATE: 06/14/2019 22:08 INDICATION: Left lower quadrant pain, knee replacement one week ago. Constipation. TECHNIQUE: Spiral CT of the abdomen and pelvis was performed without contrast. Axial, coronal and s agittal images were reviewed. The dose-length product (DLP) for this examination was 1273.31 mGy-cm. The exposure was tailored according to patient size (auto mA exposure control), and iterative recon struction (ASIR) was used as additional dose reduction technique. Comparison is made to prior examina tion from 06/26/2017. FINDINGS: The liver, spleen, adrenal glands and pancreas are unremarkable. There are cholecystectomy clips. There is no nephrolithiasis or hydronephrosis. The prostate is unremarkable. The bladder is unremarkable. There is no retroperitoneal or pelvic lymphadenopathy. There is mild to moderate scattered arteriosclerotic disease. The appendix is normal. The stomach and small bowel are unremarkable. There is small duodenal divert iculum, about 2 cm in size. There is expected amount of colonic stool. There is moderate colonic dive rticulosis. There is no adjacent inflammatory change to suggest diverticulitis. No free intraperito fanta gas. The heart is normal in size. There are no pericardial or pleural effusions. There is mi ld emphysema. There are no osteoblastic or osteolytic lesions identified. There is chronic bilateral L5 spondylolysis with about 3 mm anterolisthesis L5 on S1. IMPRESSION: 1. Moderate colonic diverticulosis without adjacent inflammation. 2. Small duodenal diverticulum. 3. L5 spondylolysis. 4. Mild emphysema. Reviewed, dictated and finalized at location A.
[2019-06-14 18:13] VITALS: BP 166/74; PULSE 83; RESP 18; TEMP 36.7; O2SAT 98
--- NOTE | 2019-06-14 21:03 | ED.EXTPRO ---
HPI - Extremity Problem General Chief complaint: Extremity Injury, Lower Stated complaint: DVT Time Seen by Provider: 06/14/19 20:48 Source: patient, family (pt's ) and RN notes reviewed Mode of arrival: ambulatory Limitations: no limitations History of Present Illness HPI Narrative: Pt is a 73 y/o male who presents to the ED with c/o swelling and pain in his rt knee. He notes that he received a rt knee replacement by Dr. Andrade on 06/02/19. Pt states that he was placed on Xarelto s/p the procedure, but notes that he was taken off of the medication earlier today. He states that he has had pain and swelling around his rt knee ever since the surgery. Pt notes that he has been taking Hydrocodone 5 mg/Acetaminophen 325 mg for his pain. His notes that he has been undergoing routine physical therapy since the surgery. Pt states that he has had increasing pain shooting from his rt knee up into his rt thigh throughout the day today. He notes that he was evaluated at Dr. Andrade's office earlier today, and states that he was diagnosed with multiple DVT's in his rt lower leg. Pt was subsequently advised to be evaluated in the ED. Pt notes that he has had intermittent constipation and diarrhea since he began mixing his Hydrocodone with laxatives. He currently denies any fever, chills, nausea, vomiting, CP, or SOB. MD Complaint: joint swelling and joint paint Onset (ago): week(s) (several) Location: right and knee Radiation: proximal Associated symptoms: other (constipation; diarrhea) Context: recent surgery/procedure (rt knee replacement) Related Data Home Medications Medication Instructions Recorded Confirmed albuterol sulfate 2.5 mg INHALATION Q4H PRN 02/23/19 06/02/19 albuterol sulfate 90 mcg/actuation 1 puff INHALATION PRN PRN 02/23/19 06/02/19 aerosol inhaler budesonide-formoterol HFA 160 2 puff INHALATION PRN PRN 02/23/19 06/02/19 mcg-4.5 mcg/actuation aerosol inhaler etanercept 50 mg/mL (1 mL) 50 mg SUB-Q WEEKLY 02/23/19 06/02/19 subcutaneous pen injector ipratropium 0.5 mg-albuterol 3 mg 3 ml INHALATION PRN PRN 02/23/19 06/02/19 (2.5 mg base)/3 mL nebulization soln prednisone 5 mg tablet 10 mg PO HS tablet 02/23/19 06/02/19 magnesium 250 mg PO DAILY 05/14/19 06/02/19 aspirin [Aspir-81] BID 06/14/19 Allergies Allergy/AdvReac Type Severity Reaction Status Date / Time infliximab [From Remicade] AdvReac Intermediate Rash Verified 06/14/19 20:51 Contrast Media Allergy Severe Hives Uncoded 06/14/19 20:51 Review of Systems Review of Systems: All systems reviewed & are unremarkable except as noted in HPI and below Constitutional: Constitutional: Denies chills and Denies fever(s) Cardiovascular: Cardiovascular: Denies chest pain Respiratory: Respiratory: Denies dyspnea Gastrointestinal: Gastrointestinal: Reports constipation, Reports diarrhea, Denies nausea and Denies vomiting Musculoskeletal: Musculoskeletal: Reports arthralgias (rt knee pain radiating into rt thigh) and Reports joint swelling (swelling around rt knee) PMFSH Past Medical History Medical History Benign essential hypertension Benign prostatic hyperplasia with lower urinary tract symptoms Cataracts, bilateral Chronic low back pain Chronic obstructive pulmonary disease, unspecified Diverticulitis Diverticulosis Elevated LFTs Emphysema of lung Follicular lymphoma grade II, unspecified site Gastrointestinal ulcer GERD (gastroesophageal reflux disease) History of rectal polyps Hypercholesterolemia Kidney stones Lung nodule Mixed hyperlipidemia Obesity Obstructive sleep apnea (adult) (pediatric) Rheumatoid arthritis involving multiple sites Shingles Splenomegaly Surgical History Surgical History History of back surgery History of right knee joint replacement Hx of cataract surgery Hx of cholecystectomy Social History Social History (
[2019-06-14 21:34] LABS: Basophils Absolute Auto 0.1 K/mm3 (0.0-0.1); Basophils Percent Auto 0.5 % (0.2-1.2); Eosinophils Absolute Auto 0.1 K/mm3 (0-0.3); Eosinophils Percent Auto 0.7 % (0-4.4); Hematocrit 41.2 % (42.0-52.0); Hemoglobin 13.8 g/dL (14.0-18.0); Immature Granulocyte Absolute 0.22 K/mm3 (0.00-0.031); Immature Granulocyte Percent A 1.9 % (0-0.5); Lymphocytes Absolute Auto 1.56 K/mm3 (0.9-3.2); Lymphocytes Percent Auto 13.5 % (18.3-44.2); Mean Corpuscular HGB Conc 33.5 g/dl (32-36); Mean Corpuscular Volume 92.6 fl (80-100); Mean Platelet Volume 10.3 fl (7.4-10.4); Monocytes Percent Auto 8.7 % (2.6-8.5); Neutrophils Absolute Auto 8.6 K/mm3 (1.3-6.7); Neutrophils Percent Auto 74.7 % (45.5-73.1); Platelet Count Result 213 k/mm3 (150-375); Red Blood Count 4.45 M/mm3 (4.6-6.20); Red Cell Distribution Width 13.3 % (11.5-14.5); White Blood Count 11.5 K/mm3 (4.5-10.0)
[2019-06-14 21:40] LABS: INR 1.2; Prothrombin Time 14.5 Seconds (11.1-14.7)
[2019-06-14 21:41] LABS: Partial Thromboplastin Time 30.8 SECONDS (22.3-36.8)
[2019-06-14 21:42] LABS: Blood Urea Nitrogen 16 mg/dL (9-20); Calcium 9.3 mg/dL (8.4-10.2); Carbon Dioxide 25 mmol/L (22-30); Chloride 105 mmol/L (98-107); Estimated CRCL calculation 78 ml/min; Estimated Glomerular Filt Rate > 60; Glucose 88 mg/dL (75-110); Potassium 3.7 mmol/L (3.4-5.0); Sodium 137 mmol/L (137-145)
[2019-06-14 22:20] VITALS: BP 155/70; PULSE 72; RESP 18; O2SAT 98
[2019-06-14 23:08] VITALS: BP 157/70; PULSE 70; RESP 18; O2SAT 97
== END 2019-06-14 23:20 | disposition home or self-care (01) ==
PROVIDERS: Emergency Provider Emergency Medicine; PCP Internal Medicine
DX: T81.72XA Complication of vein following a procedure, not elsewhere classified, initial encounter (principal); I82.461 Acute embolism and thrombosis of right calf muscular vein; Z96.651 Presence of right artificial knee joint; I10 Essential (primary) hypertension; N40.1 Benign prostatic hyperplasia with lower urinary tract symptoms; J43.9 Emphysema, unspecified; K21.9 Gastro-esophageal reflux disease without esophagitis; Z87.442 Personal history of urinary calculi; E78.2 Mixed hyperlipidemia; G47.33 Obstructive sleep apnea (adult) (pediatric); M06.9 Rheumatoid arthritis, unspecified; R16.1 Splenomegaly, not elsewhere classified; Z98.49 Cataract extraction status, unspecified eye; Z87.891 Personal history of nicotine dependence; Z79.82 Long term (current) use of aspirin; Z79.01 Long term (current) use of anticoagulants; Z87.19 Personal history of other diseases of the digestive system
CPT/HCPCS: 36415; 74176; 80048; 85025; 85610; 85730; 93971; 99284; A9270

== ENCOUNTER 2019-06-29 10:30 | Outpatient (CLI) | payer MEDICARE, SELFPAY ==
--- NOTE | ~2019-06-29 | US_ITS ---
EXAMINATION: US venous doppler LE RT DATE: 06/29/2019 11:35 INDICATION: Right lower limb swelling TECHNIQUE: Grayscale ultrasound images without and with compression and Doppler ultrasound images of the right lower extremity veins were obtained. COMPARISON: None. FINDINGS: The visualized portions of right common femoral vein, profunda (deep) femoral vein, femoral vein, pop liteal vein, peroneal trunk, posterior tibial veins, peroneal veins, gastrocnemius vein and greater s aphenous vein outflow are patent. IMPRESSION: 1. No deep venous thrombosis in the right lower limb. Reviewed, dictated and finalized at location A.
== END 2019-06-29 10:31 | disposition home or self-care (01) ==
PROVIDERS: PCP Internal Medicine; Visit Provider Orthopaedic Surgery
DX: I82.409 Acute embolism and thrombosis of unspecified deep veins of unspecified lower extremity (principal); M79.89 Other specified soft tissue disorders
CPT/HCPCS: 93971

== ENCOUNTER 2019-09-08 10:12 | Outpatient (CLI) | payer MEDICARE, SELFPAY ==
--- NOTE | ~2019-09-08 | CT_ITS ---
EXAMINATION: CT chest wo con DATE: 09/08/2019 10:39 INDICATION: Solitary pulmonary nodule TECHNIQUE: Computed tomography (CT) of the chest was performed without intravenous contrast. Automate d exposure control and iterative reconstruction technique were employed. Exam dose: 233.47 mGy-cm to charity exam DLP. COMPARISON: view chest 09/05/2018 CT chest FINDINGS: Emphysematous changes of the lungs are noted. There is a small focal area of stable asymmet ry on the left upper lobe (series 4 image 42). Follow-up CT imaging in 6 months is recommended for co ntinued surveillance of this area. No pulmonary infiltrate or consolidation, pleural effusion or pulmonary vascular congestion or pneumo thorax is detected. There are calcified left pulmonary granulomas and calcified left hilar nodes, consistent with old pul monary granulomatous disease. Status post cholecystectomy. Normal adrenal glands. Diverticulosis of the colon. Diffuse idiopathic skeletal hyperostosis of the thoracic spine. IMPRESSION: Emphysema Old pulmonary granulomatous disease Six-month follow-up CT is recommended for continued surveillance of small focal left upper lobe asymm etry. Reviewed, dictated and finalized at Location A. Reviewed, dictated and finalized at location A. IMPRESSION: Emphysema Old pulmonary granulomatous disease Six-month follow-up CT is recommended for continued surveillance of small focal left upper lobe asymmetry.
== END 2019-09-08 10:13 | disposition home or self-care (01) ==
PROVIDERS: PCP Internal Medicine; Visit Provider Nurse Practitioner Family
DX: R91.1 Solitary pulmonary nodule (principal); Z90.49 Acquired absence of other specified parts of digestive tract; K57.30 Diverticulosis of large intestine without perforation or abscess without bleeding; J43.9 Emphysema, unspecified
CPT/HCPCS: 71250

== ENCOUNTER 2019-09-22 09:06 | Outpatient (CLI) | payer MEDICARE, SELFPAY ==
[2019-09-22 09:25] LABS: Basophils Percent Auto 0.3 % (0.2-1.2); Eosinophils Percent Auto 0.6 % (0-4.4); Hematocrit 44.3 % (42.0-52.0); Hemoglobin 14.7 g/dL (14.0-18.0); Immature Granulocyte Absolute 0.02 K/mm3 (0.00-0.031); Immature Granulocyte Percent A 0.3 % (0-0.5); Immature Platelet Fraction Pct 4.4 % (0.9-11.2); Lymphocytes Absolute Auto 1.16 K/mm3 (0.9-3.2); Lymphocytes Percent Auto 17.5 % (18.3-44.2); Mean Corpuscular HGB Conc 33.2 g/dl (32-36); Mean Corpuscular Hemoglobin 31.1 pg (26-34); Mean Corpuscular Volume 93.9 fl (80-100); Mean Platelet Volume 10.7 fl (7.4-10.4); Monocytes Absolute Auto 0.5 K/mm3 (0.1-0.6); Neutrophils Absolute Auto 4.9 K/mm3 (1.3-6.7); Neutrophils Percent Auto 73.3 % (45.5-73.1); Platelet Count Result 135 k/mm3 (150-375); Red Blood Count 4.72 M/mm3 (4.6-6.20); Red Cell Distribution Width 12.7 % (11.5-14.5); White Blood Count 6.6 K/mm3 (4.5-10.0)
[2019-09-22 12:08] LABS: Alanine Aminotransferase 32 U/L (4-50); Albumin Level 3.9 g/dL (3.5-5.1); Alkaline Phosphatase 118 U/L (38-126); Aspartate Amino Transferase 34 U/L (17-59); Bilirubin,Total 0.6 mg/dL (0.2-1.3); Blood Urea Nitrogen 17 mg/dL (9-20); Calcium 8.9 mg/dL (8.4-10.2); Carbon Dioxide 25 mmol/L (22-30); Chloride 106 mmol/L (98-107); Estimated Glomerular Filt Rate > 60; Glucose 156 mg/dL (75-110); Lactate Dehydrogenase 479 U/L (313-618); Potassium 4.1 mmol/L (3.4-5.0); Sodium 135 mmol/L (137-145)
== END 2019-09-22 09:07 | disposition home or self-care (01) ==
PROVIDERS: PCP Internal Medicine; Visit Provider Internal Medicine Hematology & Oncology
DX: R16.1 Splenomegaly, not elsewhere classified (principal)
CPT/HCPCS: 36415; 80053; 83615; 85025; 85055

== ENCOUNTER 2020-03-08 10:35 | Outpatient (CLI) | payer MEDICARE, SELFPAY ==
--- NOTE | ~2020-03-08 | CT_ITS ---
EXAMINATION: CT chest wo con DATE: 03/08/2020 10:58 INDICATION: Solitary pulmonary nodule. TECHNIQUE: Computed tomography (CT) of the chest was performed without intravenous contrast. The dose -length product was 354.63 mGy-cm. Automated exposure control and iterative reconstruction technique were employed. COMPARISON: Comparison to multiple prior studies sequentially, with oldest reviewed study dated 04/2017. FINDINGS: There is atherosclerosis. Heart size normal. No pleural or pericardial effusion. No thoraci c lymphadenopathy. There are scattered calcified granulomas. Severe emphysema. There is a 5 mm left u pper lobe nodule with adjacent infiltrate, unchanged dating back to 01/05/2018. No endobronchial lesi ons. No focal airspace consolidation. No pneumothorax identified. Status post cholecystectomy. There is diffuse idiopathic skeletal hyperostosis (DISH) of the thoracic spine. IMPRESSION: 1. No significant interval change to left upper lobe infiltrates/nodule and scattered calcified granu allison. Follow-up low dose CT chest in 12 months recommended. 2: Emphysema. Reviewed, dictated and finalized at location B. 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 No significant interval change to left upper lobe infiltrates/nodule and sca ttered calcified granulomas. Follow-up low dose CT chest in 12 months recommend ed. 2: Emphysema.
== END 2020-03-08 10:36 | disposition home or self-care (01) ==
PROVIDERS: PCP Internal Medicine; Visit Provider Internal Medicine Critical Care Medicine
DX: R91.1 Solitary pulmonary nodule (principal); J43.9 Emphysema, unspecified
CPT/HCPCS: 71250

== ENCOUNTER 2020-07-13 10:33 | Outpatient (CLI) | payer MEDICARE, SELFPAY ==
--- NOTE | ~2020-07-13 | XR_ITS ---
EXAMINATION: XR chest 2V EXAM DATE: 07/13/2020 10:57 INDICATION: Pneumonia, recent COVID 19 infection. TECHNIQUE: Frontal and lateral projections of the chest obtained and reviewed. Comparison is made to prior examination from 05/14/2019. FINDINGS: Interval development of extensive peripheral mid and lower lung zone predominant increased reticulation with small regions of confluence. Appearance is consistent with subacute COVID pneumoni a. Can't exclude other organisms. No sizable pleural effusion. Mild cardiomegaly. There is no pneumot horax suspected. There are mild bony degenerative changes. There are cholecystectomy clips. IMPRESSION: Extensive abnormal reticulation, appearance consistent with subacute COVID pneumonia. Reviewed, dictated and finalized at location A. IMPRESSION: Extensive abnormal reticulation, appearance consistent with subacu te COVID pneumonia.
== END 2020-07-13 10:34 | disposition home or self-care (01) ==
LOC: ANHIMG 10:39
PROVIDERS: PCP Internal Medicine; Visit Provider Internal Medicine
DX: J18.9 Pneumonia, unspecified organism (principal); R91.8 Other nonspecific abnormal finding of lung field
CPT/HCPCS: 71046

== ENCOUNTER 2020-09-15 09:00 | Outpatient (RCR) | payer MEDICARE, SELFPAY ==
[2020-09-15 13:56] VITALS: BMI 35.4
== END 2020-11-28 12:08 | disposition home or self-care (01) ==
LOC: ANHWOC 09:00
PROVIDERS: PCP Internal Medicine; Visit Provider Internal Medicine
DX: S31.809D Unspecified open wound of unspecified buttock, subsequent encounter (principal)
CPT/HCPCS: 99212; G0463

== ENCOUNTER 2020-09-22 08:26 | Outpatient (CLI) | payer MEDICARE, SELFPAY ==
[2020-09-22 08:47] LABS: Basophils Percent Auto 0.4 % (0.2-1.2); Eosinophils Absolute Auto 0.1 K/mm3 (0-0.3); Eosinophils Percent Auto 1.2 % (0-4.4); Hematocrit 47.9 % (42.0-52.0); Hemoglobin 15.7 g/dL (14.0-18.0); Immature Granulocyte Absolute 0.09 K/mm3 (0.00-0.031); Immature Granulocyte Percent A 0.9 % (0-0.5); Lymphocytes Absolute Auto 1.16 K/mm3 (0.9-3.2); Lymphocytes Percent Auto 11.2 % (18.3-44.2); Mean Corpuscular HGB Conc 32.8 g/dl (32-36); Mean Corpuscular Hemoglobin 30.4 pg (26-34); Mean Corpuscular Volume 92.8 fl (80-100); Mean Platelet Volume 10.4 fl (7.4-10.4); Monocytes Absolute Auto 0.9 K/mm3 (0.1-0.6); Monocytes Percent Auto 8.4 % (2.6-8.5); Neutrophils Absolute Auto 8.1 K/mm3 (1.3-6.7); Neutrophils Percent Auto 77.9 % (45.5-73.1); Platelet Count Result 201 k/mm3 (150-375); Red Blood Count 5.16 M/mm3 (4.6-6.20); Red Cell Distribution Width 12.7 % (11.5-14.5); White Blood Count 10.4 K/mm3 (4.5-10.0)
[2020-09-22 08:54] LABS: Blood Urea Nitrogen 15 mg/dL (8-26); Carbon Dioxide 26 mmol/L (22-30); Chloride 103 mmol/L (98-109); Estimated Glomerular Filt Rate > 60; Glucose 131 mg/dL (70-105); Potassium 4.4 mmol/L (3.5-4.9); Sodium 139 mmol/L (138-146)
[2020-09-22 12:26] LABS: Alanine Aminotransferase 52 U/L (4-50); Albumin Level 4.3 g/dL (3.5-5.1); Alkaline Phosphatase 157 U/L (38-126); Anion Gap 11 mmol/L (8-16); Aspartate Amino Transferase 50 U/L (17-59); Bilirubin,Total 0.5 mg/dL (0.2-1.3); Blood Urea Nitrogen 15 mg/dL (9-20); Calcium 9.8 mg/dL (8.4-10.2); Carbon Dioxide 25 mmol/L (22-30); Chloride 103 mmol/L (98-107); Estimated Glomerular Filt Rate > 60; Glucose 128 mg/dL (75-110); Potassium 4.6 mmol/L (3.4-5.0); Sodium 139 mmol/L (137-145)
== END 2020-09-22 08:27 | disposition home or self-care (01) ==
LOC: ANHLAB 08:29
PROVIDERS: PCP Internal Medicine; Visit Provider Internal Medicine Hematology & Oncology
DX: R16.1 Splenomegaly, not elsewhere classified (principal)
CPT/HCPCS: 36415; 80048; 80053; 85025

== ENCOUNTER 2020-10-16 14:51 | Outpatient (CLI) | payer MEDICARE, SELFPAY ==
--- NOTE | ~2020-10-16 | CT_ITS ---
EXAMINATION: CT sinus wo con DATE: 10/16/2020 15:12 INDICATION: Headache TECHNIQUE: Computed tomography (CT) of the paranasal sinuses was performed without contrast. Iterativ e reconstruction technique was employed. Exam dose: 274.44 mGy-cm total exam DLP. COMPARISON: None FINDINGS: Mild rightward deviation of the nasal septum. The nasal turbinates are prominent but relatively symmetric in size. Mild intralamellar cell of left middle nasal turbinate. 1.8 cm polyp or mucous retention cyst in the lower left maxillary sinus. Minimal mucoperiosteal thickening of the lower right maxillary sinus. There is focal soft tissue opacification of a mid left ethmoid air cell. The frontal and sphenoid sinuses are clear. The mastoid air cells are normally developed and aerated. Middle and inner ear apparatus appear unrem arkable bilaterally. IMPRESSION: Moderate deviation of nasal septum Prominent nasal turbinates Mild intralamellar cell of left middle nasal turbinate 1.8 cm polyp or mucous retention cyst of left maxillary sinus Minimal mucosal periosteal thickening of the left maxillary sinus and mid left ethmoid opacified air cell Reviewed, dictated and finalized at Location A. Reviewed, dictated and finalized at location B.
== END 2020-10-16 14:52 | disposition home or self-care (01) ==
PROVIDERS: PCP Internal Medicine; Visit Provider Otolaryngology
DX: R51.9 Headache, unspecified (principal); R44.8 Other symptoms and signs involving general sensations and perceptions; J34.3 Hypertrophy of nasal turbinates; J34.2 Deviated nasal septum; J34.89 Other specified disorders of nose and nasal sinuses; R09.82 Postnasal drip
CPT/HCPCS: 70486

== ENCOUNTER 2021-11-01 09:44 | Outpatient (CLI) | payer MEDICARE, SELFPAY ==
[2021-11-01 10:07] LABS: Basophils Absolute Auto 0.1 K/mm3 (0.0-0.1); Basophils Percent Auto 0.5 % (0.2-1.2); Eosinophils Absolute Auto 0.2 K/mm3 (0-0.3); Eosinophils Percent Auto 1.9 % (0-4.4); Hematocrit 45.7 % (42.0-52.0); Hemoglobin 15.1 g/dL (14.0-18.0); Immature Granulocyte Percent A 1.1 % (0-0.5); Lymphocytes Percent Auto 12.9 % (18.3-44.2); Mean Corpuscular Hemoglobin 30.9 pg (26-34); Mean Corpuscular Volume 93.5 fl (80-100); Mean Platelet Volume 10.9 fl (7.4-10.4); Monocytes Absolute Auto 1.1 K/mm3 (0.1-0.6); Monocytes Percent Auto 11.3 % (2.6-8.5); Neutrophils Absolute Auto 6.7 K/mm3 (1.3-6.7); Neutrophils Percent Auto 72.3 % (45.5-73.1); Platelet Count Result 157 k/mm3 (150-375); Red Blood Count 4.89 M/mm3 (4.6-6.20); Red Cell Distribution Width 13.8 % (11.5-14.5); White Blood Count 9.3 K/mm3 (4.5-10.0)
[2021-11-01 10:10] LABS: Blood Urea Nitrogen 23 mg/dL (8-26); Carbon Dioxide 28 mmol/L (22-30); Chloride 102 mmol/L (98-109); Estimated Glomerular Filt Rate 45; Glucose 94 mg/dL (70-105); Ionized Calcium (POC) 1.15 mmol/L (1.11-1.31); Potassium 4.4 mmol/L (3.5-4.9); Sodium 138 mmol/L (138-146)
[2021-11-01 13:49] LABS: Alanine Aminotransferase 64 U/L (6-50); Albumin Level 4.2 g/dL (3.5-5.1); Alkaline Phosphatase 152 U/L (38-126); Anion Gap 12 mmol/L (8-16); Aspartate Amino Transferase 49 U/L (17-59); Bilirubin,Total 0.5 mg/dL (0.2-1.3); Blood Urea Nitrogen 24 mg/dL (9-20); Calcium 9.4 mg/dL (8.4-10.2); Carbon Dioxide 23 mmol/L (22-30); Chloride 102 mmol/L (98-107); Estimated Glomerular Filt Rate 49; Glucose 93 mg/dL (65-110); Lactate Dehydrogenase 495 U/L (313-618); Potassium 4.4 mmol/L (3.4-5.0); Sodium 137 mmol/L (137-145)
== END 2021-11-01 09:45 | disposition home or self-care (01) ==
PROVIDERS: PCP Internal Medicine; Visit Provider Internal Medicine Hematology & Oncology
DX: C34.12 Malignant neoplasm of upper lobe, left bronchus or lung (principal)
CPT/HCPCS: 36415; 80047; 80053; 83615; 85025

== ENCOUNTER 2021-12-13 06:35 | Outpatient (CLI) | payer MEDICARE, SELFPAY ==
--- NOTE | ~2021-12-13 | CT_ITS ---
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 The dose -length product (DLP) was 499.11 mGy-cm. Automated exposure control and iterative reconstruction tech nique were employed. COMPARISON: 03/08/2020; interval CT and PET/CT contributing to the diagnosis of lung cancer not curren tly available for comparison FINDINGS: There is severe emphysema. There is a 1.4 x 1.1 cm spiculated nodule of the left upper lobe . There are widespread groundglass opacities throughout the lungs. No pleural effusion or pneumothora x. No pathologically enlarged thoracic lymph nodes are identified. The heart size is normal. There is calcified coronary artery atherosclerosis. Calcified pulmonary nodules and calcified left hilar lymp h nodes are consistent with old granulomatous disease. There are bridging osteophytes at multiple lev els in the spine, consistent with diffuse idiopathic skeletal hyperostosis (DISH). IMPRESSION: 1. Left upper lobe nodule consistent with known malignancy. Finding is likely stable based on the siz e description provided in the oncology note dated 10/05/2021. Outside hospital imaging is not currently available for direct comparison. 2. Widespread groundglass opacities of the lungs, likely sequela of prior COVID 19 pneumonia. 3. Severe emphysema. Reviewed, dictated and finalized at location B. IMPRESSION: 1. Left upper lobe nodule consistent with known malignancy. Finding is likely s table based on the size description provided in the oncology note dated 2. Outside hospital imaging is not currently available for direct comparison. 2. Widespread groundglass opacities of the lungs, likely sequela of prior COVID 19 pneumonia. 3. Severe emphysema.
== END 2021-12-13 06:36 | disposition home or self-care (01) ==
LOC: ANHIMG 06:42
PROVIDERS: PCP Internal Medicine; Visit Provider Internal Medicine Hematology & Oncology
DX: C34.12 Malignant neoplasm of upper lobe, left bronchus or lung (principal); J43.9 Emphysema, unspecified; R91.8 Other nonspecific abnormal finding of lung field
CPT/HCPCS: 71250

== ENCOUNTER 2022-03-13 07:37 | Outpatient (CLI) | payer MEDICARE, SELFPAY ==
--- NOTE | ~2022-03-13 | CT_ITS ---
EXAMINATION: CT diagnostic chest wo con DATE: 03/13/2022 08:07 INDICATION: malignant neoplasm of upper lobe of LT lung TECHNIQUE: Computed tomography (CT) of the chest was performed without intravenous contrast. Addition al 3D reconstructions utilizing coronal maximum intensity projection (MIP) were performed. Automated exposure control and iterative reconstruction technique were employed. The dose-length product was 52 3.00 mGy-cm. COMPARISON: 12/13/2021 FINDINGS: Severe emphysema. Slight interval decrease in size of a now 12 x 8 x 8 mm spiculated left upper lobe nodule which previously measured 14 x 11 x 10 mm. There are numerous bilateral small calcified pulmon karen nodules consistent with old granulomatous disease. There is peripheral irregular septal line thic kening with lower lung predominance and without honeycombing which could represent either atelectasis /scarring or chronic interstitial lung disease closest to a nonspecific interstitial pneumonia (NSIP) pattern. . No pulmonary edema, pleural effusion or pneumothorax. Heart size is normal. Atherosclerot ic coronary artery calcific a cyst. Thoracic aorta is normal in caliber. No pathologically enlarged t horacic lymphadenopathy. Unchanged mild dilation of the common bile duct which is within normal limit s post cholecystectomy with surgical clips at the gallbladder fossa. Moderate thoracic spondylosis wi th bridging osteophytes at multiple levels consistent with diffuse idiopathic skeletal hyperostosis ( DISH). IMPRESSION: 1. Slight interval decrease in size of a now 12 x 8 mm spiculated left upper lobe nodule which would favor an infectious/inflammatory etiology but would recommend additional 9 month follow-up low-dose n oncontrast chest CT. 2. Severe emphysema with peripheral irregular septal line thickening in the lower lungs which could b e due to atelectasis/scarring related to prior infection or NSIP pattern chronic interstitial lung di sease. Reviewed, dictated and finalized at location A. T ENGINEER IMPRESSION: 1. Slight interval decrease in size of a now 12 x 8 mm spiculated left upper lo be nodule which would favor an infectious/inflammatory etiology but would recom mend additional 9 month follow-up low-dose noncontrast chest CT. 2. Severe emphysema with peripheral irregular septal line thickening in the low er lungs which could be due to atelectasis/scarring related to prior infection or NSIP pattern chronic interstitial lung disease.
== END 2022-03-13 07:38 | disposition home or self-care (01) ==
PROVIDERS: PCP Internal Medicine; Visit Provider Internal Medicine Hematology & Oncology
DX: C34.12 Malignant neoplasm of upper lobe, left bronchus or lung (principal); J43.9 Emphysema, unspecified
CPT/HCPCS: 71250

== ENCOUNTER 2022-03-20 09:04 | Outpatient (CLI) | payer MEDICARE, SELFPAY ==
[2022-03-20 09:17] LABS: Basophils Absolute Auto 0.1 K/mm3 (0.0-0.1); Basophils Percent Auto 0.5 % (0.2-1.2); Eosinophils Absolute Auto 0.2 K/mm3 (0-0.3); Eosinophils Percent Auto 1.2 % (0-4.4); Hematocrit 46.4 % (42.0-52.0); Immature Granulocyte Absolute 0.14 K/mm3 (0.00-0.031); Immature Granulocyte Percent A 1.1 % (0-0.5); Lymphocytes Absolute Auto 2.56 K/mm3 (0.9-3.2); Lymphocytes Percent Auto 19.3 % (18.3-44.2); Mean Corpuscular HGB Conc 32.3 g/dl (32-36); Mean Corpuscular Hemoglobin 31.1 pg (26-34); Mean Corpuscular Volume 96.3 fl (80-100); Mean Platelet Volume 10.8 fl (7.4-10.4); Monocytes Absolute Auto 1.3 K/mm3 (0.1-0.6); Monocytes Percent Auto 9.7 % (2.6-8.5); Neutrophils Percent Auto 68.2 % (45.5-73.1); Platelet Count Result 161 k/mm3 (150-375); Red Blood Count 4.82 M/mm3 (4.6-6.20); Red Cell Distribution Width 14.3 % (11.5-14.5); White Blood Count 13.2 K/mm3 (4.5-10.0)
[2022-03-20 09:23] LABS: Blood Urea Nitrogen 26 mg/dL (8-26); Carbon Dioxide 28 mmol/L (22-30); Chloride 102 mmol/L (98-109); Estimated Glomerular Filt Rate 39; Glucose 84 mg/dL (70-105); Ionized Calcium (POC) 1.18 mmol/L (1.11-1.31); Potassium 3.6 mmol/L (3.5-4.9); Sodium 141 mmol/L (138-146)
[2022-03-20 11:29] LABS: Alanine Aminotransferase 74 U/L (6-50); Alkaline Phosphatase 161 U/L (38-126); Anion Gap 10 mmol/L (8-16); Aspartate Amino Transferase 53 U/L (17-59); Bilirubin,Total 0.6 mg/dL (0.2-1.3); Blood Urea Nitrogen 27 mg/dL (9-20); Calcium 9.2 mg/dL (8.4-10.2); Carbon Dioxide 28 mmol/L (22-30); Chloride 103 mmol/L (98-107); Estimated Glomerular Filt Rate 42; Glucose 85 mg/dL (65-110); Lactate Dehydrogenase 201 U/L (120-246); Potassium 3.7 mmol/L (3.4-5.0); Sodium 141 mmol/L (137-145)
== END 2022-03-20 09:05 | disposition home or self-care (01) ==
LOC: ANHLAB 09:05
PROVIDERS: PCP Internal Medicine; Visit Provider Internal Medicine Hematology & Oncology
DX: C34.12 Malignant neoplasm of upper lobe, left bronchus or lung (principal)
CPT/HCPCS: 36415; 80047; 80053; 83615; 85025

== ENCOUNTER 2022-07-15 08:52 | Outpatient (CLI) | payer MEDICARE, SELFPAY ==
--- NOTE | ~2022-07-15 | CT_ITS ---
EXAMINATION: CT chest abdomen pelvis wo con DATE: 07/15/2022 09:16 INDICATION: Malignant neoplasm of upper lobe of left lung. TECHNIQUE: Computed tomography (CT) of the chest, abdomen, and pelvis was performed without intraveno us contrast. Automated exposure control and iterative reconstruction technique were employed. The dos e-length product was 1540.68 mGy-cm. COMPARISON: Chest CT 03/13/2022 FINDINGS: CHEST CT: There is severe emphysema. There is peripheral septal thickening in all lobes. Calcified left lung no dules and calcified left hilar lymph nodes are consistent with old granulomatous disease. There is an 8 mm nodule in left upper lobe, decreased from 10 mm on 03/13/2022. No pleural effusion. The heart si ze is normal. There are coronary artery calcifications. There are calcifications of aortic valve. No pericardial effusion. There is mild bilateral gynecomastia. There are bridging endplate osteophytes at multiple levels in the spine, consistent with diffuse idiopathic skeletal hyperostosis (DISH). ABDOMEN/PELVIS CT: The liver is normal. There are changes of cholecystectomy. There is a diverticulum of the second port ion of the duodenum. The spleen, pancreas, adrenal glands, and right kidney are normal. There is a 1 mm stone in left kidney. There is diverticulosis of the colon without evidence of diverticulitis. The prostate is mildly enlarged. There are no pathologically enlarged lymph nodes. There is no free intr aperitoneal fluid. There is calcified atherosclerosis of the aorta and many of the other arteries. Th ere is severe lumbar spondylosis. IMPRESSION: 1. 8 mm nodule in left lung upper lobe, decreased from 10 mm on 03/13/2022, consistent with presumed p rimary bronchogenic carcinoma status post radiation therapy. 2. Severe emphysema and chronic lung disease. Reviewed, dictated and finalized at location A. IMPRESSION: 1. 8 mm nodule in left lung upper lobe, decreased from 10 mm on 03/13/2022, cons istent with presumed primary bronchogenic carcinoma status post radiation thera py. 2. Severe emphysema and chronic lung disease.
== END 2022-07-15 08:53 | disposition home or self-care (01) ==
PROVIDERS: PCP Internal Medicine; Visit Provider Internal Medicine Hematology & Oncology
DX: C34.12 Malignant neoplasm of upper lobe, left bronchus or lung (principal); R16.1 Splenomegaly, not elsewhere classified; J43.9 Emphysema, unspecified; R91.8 Other nonspecific abnormal finding of lung field
CPT/HCPCS: 71250; 74176

== ENCOUNTER 2022-07-22 08:52 | Outpatient (CLI) | payer MEDICARE, SELFPAY ==
[2022-07-22 09:27] LABS: Basophils Percent Auto 0.3 % (0.2-1.2); Eosinophils Absolute Auto 0.2 K/mm3 (0-0.3); Eosinophils Percent Auto 1.8 % (0-4.4); Hematocrit 42.5 % (42.0-52.0); Hemoglobin 14.1 g/dL (14.0-18.0); Immature Granulocyte Percent A 0.8 % (0-0.5); Immature Platelet Fraction Pct 5.6 % (0.9-11.2); Lymphocytes Absolute Auto 0.95 K/mm3 (0.9-3.2); Lymphocytes Percent Auto 7.8 % (18.3-44.2); Mean Corpuscular HGB Conc 33.2 g/dl (32-36); Mean Corpuscular Volume 93.4 fl (80-100); Mean Platelet Volume 10.7 fl (7.4-10.4); Monocytes Percent Auto 8.3 % (2.6-8.5); Neutrophils Absolute Auto 9.8 K/mm3 (1.3-6.7); Platelet Count Result 131 k/mm3 (150-375); Red Blood Count 4.55 M/mm3 (4.6-6.20); White Blood Count 12.1 K/mm3 (4.5-10.0)
[2022-07-22 09:33] LABS: Blood Urea Nitrogen 27 mg/dL (8-26); Carbon Dioxide 27 mmol/L (22-30); Chloride 102 mmol/L (98-109); Estimated Glomerular Filt Rate 42; Glucose 101 mg/dL (70-105); Ionized Calcium (POC) 1.23 mmol/L (1.11-1.31); Potassium 4.4 mmol/L (3.5-4.9); Sodium 140 mmol/L (138-146)
[2022-07-22 10:56] LABS: Alanine Aminotransferase 58 U/L (6-50); Alkaline Phosphatase 133 U/L (38-126); Anion Gap 7 mmol/L (8-16); Aspartate Amino Transferase 44 U/L (17-59); Bilirubin,Total 0.7 mg/dL (0.2-1.3); Blood Urea Nitrogen 27 mg/dL (9-20); Calcium 9.3 mg/dL (8.4-10.2); Carbon Dioxide 28 mmol/L (22-30); Chloride 102 mmol/L (98-107); Estimated Glomerular Filt Rate 49; Glucose 97 mg/dL (65-110); Potassium 4.4 mmol/L (3.4-5.0); Sodium 137 mmol/L (137-145)
== END 2022-07-22 08:53 | disposition home or self-care (01) ==
LOC: ANHLAB 08:55
PROVIDERS: PCP Internal Medicine; Visit Provider Internal Medicine Hematology & Oncology
DX: C34.12 Malignant neoplasm of upper lobe, left bronchus or lung (principal)
CPT/HCPCS: 36415; 80047; 80053; 85025; 85055

== ENCOUNTER 2022-08-08 01:47 | Day surgery (SDC) | payer MEDICARE, SELFPAY ==
[2022-07-25 14:19] VITALS: BMI 36.6
[2022-08-08 06:47] VITALS: BP 144/64; PULSE 100; RESP 20; TEMP 35.9; O2SAT 93; BMI 35.6
[2022-08-08] MEDS: LACTATED RINGERS 1,000 ML 150 ML IV CONT (06:57)
[2022-08-08 07:00] LABS: Glucose Point of Care 94 mg/dl (65-105)
--- NOTE | 2022-08-08 07:25 | PM.HPGS ---
History of Present Illness History of Present Illness Consent: Risks, benefits, and alternatives have been discussed and questions answered. Patient agrees to proceed with procedure. Chief complaint: hx colon polyps, family hx colon ca Narrative: Dilan Weaver is a 77 year old male Presents for screening colonoscopy. Patient's current weight appetite and bowel movements are normal. Patient denies abdominal pain. He has had no bleeding. Family history is significant that his brother had colon cancer. Patient was found to have benign adenomatous colon polyps removed times previous colonoscopy in 2018. He presents today for surveillance exam. Review of Systems Review of Systems: Review of systems noncontributory. [facility] Past Medical History Medical History Benign essential hypertension Benign prostatic hyperplasia with lower urinary tract symptoms Cataracts, bilateral Chronic low back pain Chronic obstructive pulmonary disease, unspecified COVID-19 Diverticulitis Diverticulosis Elevated LFTs Emphysema of lung Follicular lymphoma grade II, unspecified site Gastrointestinal ulcer GERD (gastroesophageal reflux disease) History of rectal polyps Hypercholesterolemia Influenza A Kidney stones Lung cancer Lung nodule Mixed hyperlipidemia Obesity Obstructive sleep apnea (adult) (pediatric) Rheumatoid arthritis involving multiple sites Shingles Splenomegaly Surgical History Surgical History History of back surgery History of right knee joint replacement Hx of cataract surgery Hx of cholecystectomy Family History Family History Mother Family history of osteoarthritis Family history of congestive heart failure, Onset Age: 90 Family history of malignant neoplasm of breast in first degree relative Sibling Carcinoma of colon, Onset Age: 66 Family history of lupus erythematosus, Onset Age: 21 Family history of primary malignant neoplasm of liver Father Acute myocardial infarction Hypertension, Onset Age: 68 Family history of cardiovascular disease, Onset Age: 68 Social History Social History Smoking packs per day: 2 Smoking cigarettes per day: 40.0 Years smoked: 36 Smoking pack-years: 72.00 Smoking status: Former smoker Tobacco type: cigarettes Smoking end date: 04/07/86 Alcohol intake: never Alcohol use details: occasionally Substance use: never Substance use type: does not use Living arrangements: with family Gender identity (if verbalized by the patient): Male Sexual Orientation (if Verbalized by the Patient): Straight or Heterosexual Spiritual care concerns: No Agree to blood products: Yes Meds Home Medications and Allergies Home Medications Medication Instructions Recorded Confirmed Type hydrocodone 10 mg-acetaminophen 1 tablet PO Q6H PRN Pain 02/21/20 08/08/22 History 325 mg tablet hydroxychloroquine 200 mg tablet 200 mg PO DAILY 02/21/20 08/08/22 History ipratropium 0.5 mg-albuterol 3 mg 3 ml inhalation Q4-6H PRN 07/02/20 08/08/22 Rx (2.5 mg base)/3 mL nebulization Shortness Of Breath #180 mL soln tamsulosin 0.4 mg capsule 0.4 mg PO QHS 08/01/20 08/08/22 History blood-glucose meter (Accu-Chek #1 ea 08/04/20 08/08/22 Rx Guide Glucose Meter) lancets (Accu-Chek Multiclix #200 ea 08/04/20 08/08/22 Rx Lancet) blood sugar diagnostic (Accu-Chek #100 ea 11/06/20 08/08/22 Rx Guide test strips) triamterene 37.5 1 tablet PO QAM 02/14/21 08/08/22 History mg-hydrochlorothiazide 25 mg tablet azelastine 137 mcg (0.1 %) nasal See Rx Instructions .Route 12/17/21 08/08/22 Rx spray aerosol .COMPLEX #30 mL omeprazole 40 mg capsule,delayed See Rx Instructions .Route 01/28/22 08/08/22 Rx release .COMPLEX #90 caps
--- NOTE | 2022-08-08 07:29 | WPDANESEPPF ---
Anes - Initial Pre Proc Eval Procedure: Operation Date: 08/08/22 08:00 Proposed Procedures p Colonoscopy - Brandt Layton MD Date/Time: 08/08/22 07:29 Surgeon: Brandt Layton MD Pre Op Diagnosis: hx colon polyps, family hx colon ca Patient Data Age: 77 Gender: M Height: 1.7 m Weight: 103.3 kg Last Vital Signs Temp 96.6 F L 08/08/22 06:47 Pulse 100 08/08/22 06:47 Resp 20 08/08/22 06:47 BP 144/64 H 08/08/22 06:47 Pulse Ox 93 08/08/22 06:47 O2 Del Method Nasal Cannula 08/08/22 06:47 O2 Flow Rate 2 08/08/22 06:47 Allergies Allergy/AdvReac Type Severity Reaction Status Date / Time Iodinated Contrast Media Allergy Severe Hives Verified 08/08/22 06:42 infliximab [From Remicade] AdvReac Intermediate Rash Verified 08/08/22 06:42 Home Medications Medication Instructions Recorded Confirmed Type hydrocodone 10 mg-acetaminophen 1 tablet PO Q6H PRN Pain 02/21/20 08/08/22 History 325 mg tablet hydroxychloroquine 200 mg tablet 200 mg PO DAILY 02/21/20 08/08/22 History ipratropium 0.5 mg-albuterol 3 mg 3 ml inhalation Q4-6H PRN 07/02/20 08/08/22 Rx (2.5 mg base)/3 mL nebulization Shortness Of Breath #180 mL soln tamsulosin 0.4 mg capsule 0.4 mg PO QHS 08/01/20 08/08/22 History blood-glucose meter (Accu-Chek #1 ea 08/04/20 08/08/22 Rx Guide Glucose Meter) lancets (Accu-Chek Multiclix #200 ea 08/04/20 08/08/22 Rx Lancet) blood sugar diagnostic (Accu-Chek #100 ea 11/06/20 08/08/22 Rx Guide test strips) triamterene 37.5 1 tablet PO QAM 02/14/21 08/08/22 History mg-hydrochlorothiazide 25 mg tablet azelastine 137 mcg (0.1 %) nasal See Rx Instructions .Route 12/17/21 08/08/22 Rx spray aerosol .COMPLEX #30 mL omeprazole 40 mg capsule,delayed See Rx Instructions .Route 01/28/22 08/08/22 Rx release .COMPLEX #90 caps pravastatin 20 mg tablet See Rx Instructions .Route 01/28/22 08/08/22 Rx .COMPLEX #90 tabs aspirin 81 mg tablet,delayed 81 mg PO ONCE 06/25/22 08/08/22 History release (Aspir-) celecoxib 100 mg capsule (Celebrex) 200 mg PO DAILY@0800 06/25/22 08/08/22 History magnesium 250 mg tablet 400 mg PO DAILY 06/25/22 08/08/22 History metformin 500 mg tablet 1,000 mg PO DAILY #180 tabs 06/25/22 08/08/22 Rx prednisone 5 mg tablet 10 mg PO QAM 06/25/22 08/08/22 History trazodone 50 mg tablet See Rx Instructions .Route .COMPLEX 06/25/22 08/08/22 History fluticasone propionate 50 2 spray intranasal DAILY PRN 07/01/22 08/08/22 Rx mcg/actuation nasal Congestion #47.4 mL spray,suspension (Allergy Relief (fluticasone)) diltiazem HCl 240 mg capsule,24 240 mg PO DAILY #90 caps 07/22/22 08/08/22 Rx hr,extended release famotidine 20 mg tablet See Rx Instructions .Route 07/22/22 08/08/22 Rx .COMPLEX #90 tabs budesonide 160 mcg-glycopyr 9 2 inh inhalation BID 07/25/22 08/08/22 History mcg-formot 4.8 mcg/actuation HFA inhaler (Breztri Aerosphere) etanercept 50 mg/mL (1 mL) 50 mg subcut WEEKLY 07/25/22 08/08/22 History subcutaneous syringe (Enbrel) omega-3 fatty acids 1 cap PO DAILY 07/25/22 08/08/22 History Laboratory Tests 08/08/22 06:53 POC Capillary Glucose 94 mg/dl (65-105) Patient hx anesthesia problems: none Family hx anesthesia problems: none Results Review: All pre-operative results and documents have been reviewed as part of the pre-operative evaluation. [facility] Past Medical History Medical History Benign essential hypertension Benign prostatic hyperplasia with lower urinary tract symptoms Cataracts, bilateral Chronic low back pain Chronic obstructive pulmonary disease, unspecified COVID-19 Diverticulitis Diverticulosis Elevated LFTs Emphysema of lung Follicular lymphoma grade II, unspecified site Gastrointestinal ulcer GERD (gastroesophageal reflux disease) History of rectal polyps Hypercholesterolemia Influenza A Kidney stones Lung cancer Lung nodule Mixed
[2022-08-08] MEDS: SIMETHICONE ORAL SUSPENSION 20 MG/0.3 ML 30 ML BOTTLE 0.6 ML IRRIGATION (08:07)
[2022-08-08 08:57] VITALS: BP 89/54; PULSE 90; RESP 20; O2SAT 93
[2022-08-08 09:07] VITALS: BP 119/70; PULSE 108; RESP 20; O2SAT 100
[2022-08-08 09:17] VITALS: BP 119/72; PULSE 114; RESP 18; O2SAT 100
--- NOTE | 2022-08-08 09:26 | SUR.PHASEII ---
Patient c/o right shoulder pain 10/14. States he has chronic right shoulder pain and has not had his pain meds this morning. Also receives regular injections in his shoulder and will receive one on Friday. States he will take a pain med upon discharge.
== END 2022-08-08 09:28 | disposition home or self-care (01) ==
PROVIDERS: PCP Internal Medicine; Visit Provider Internal Medicine Gastroenterology
PROC: 0DJD8ZZ Inspection of Lower Intestinal Tract, Via Natural or Artificial Opening Endoscopic (ICD-10-PCS; CPT 45378; principal; 2022-08-08 08:00)
DX: Z12.11 Encounter for screening for malignant neoplasm of colon (principal); K64.8 Other hemorrhoids; K57.30 Diverticulosis of large intestine without perforation or abscess without bleeding; D12.0 Benign neoplasm of cecum; D12.2 Benign neoplasm of ascending colon; D12.3 Benign neoplasm of transverse colon; D12.5 Benign neoplasm of sigmoid colon; Z80.0 Family history of malignant neoplasm of digestive organs; I10 Essential (primary) hypertension; N40.1 Benign prostatic hyperplasia with lower urinary tract symptoms; J44.9 Chronic obstructive pulmonary disease, unspecified; K21.9 Gastro-esophageal reflux disease without esophagitis; E78.00 Pure hypercholesterolemia, unspecified; G47.33 Obstructive sleep apnea (adult) (pediatric); M06.89 Other specified rheumatoid arthritis, multiple sites; Z79.82 Long term (current) use of aspirin; Z79.84 Long term (current) use of oral hypoglycemic drugs; Z79.51 Long term (current) use of inhaled steroids; Z79.891 Long term (current) use of opiate analgesic; Z79.620 Long term (current) use of immunosuppressive biologic; Z85.72 Personal history of non-Hodgkin lymphomas; Z87.891 Personal history of nicotine dependence; E66.9 Obesity, unspecified; Z68.35 Body mass index [BMI] 35.0-35.9, adult
CPT/HCPCS: 45385; 82948; 88305; J2704; J7120

== ENCOUNTER 2023-01-21 08:26 | Outpatient (CLI) | payer MEDICARE, SELFPAY ==
--- NOTE | ~2023-01-21 | CT_ITS ---
Clinical Indication: Lung cancer CT Scan of the Chest, Abdomen, and Pelvis without Contrast: Technique: Contiguous sections were acquired throughout the chest, abdomen, and pelvis without IV con trast administration. Dose reduction technique was used on this scan by utilizing automated exposure control and iterative reconstruction technique. The dose-length product (DLP) was 1511.69 mGy-cm. COMPARISON: 07/15/2022 Findings: There is no evidence of any significant mediastinal, hilar or axillary lymphadenopathy. Atherosclerotic calcifications of the aorta and coronary arteries. There is no evidence of pleural or pericardial effusion. There is more extensive consolidation in the left upper lobe as compared to prior exam, with suspecte d 11 mm cavitary lesion (axial image 60 for example). There is severe emphysema with possible mild ad ditional chronic interstitial disease. The liver, spleen, pancreas, adrenals and kidneys are within normal limits. Cholecystectomy clips are present. There are atherosclerotic calcifications of the aorta. No lymphadenopathy. No bowel obstruction or bowel wall thickening. Sigmoid diverticulosis noted. Normal appendix. Urinary bladder is unremarkable. Prostate gland and seminal vesicles are unremarkable. No ascites. Impression: More extensive consolidation in the left upper lobe with probable 11 mm cavitary lesion. Findings sug gest postradiation pneumonitis and sequela of treated disease. Continued follow-up advised however. No evidence for metastatic disease. Severe emphysema and chronic pulmonary interstitial disease. Reviewed, dictated and finalized at [facility]. Impression: More extensive consolidation in the left upper lobe with probable 11 mm cavitar y lesion. Findings suggest postradiation pneumonitis and sequela of treated dis ease. Continued follow-up advised however. No evidence for metastatic disease. Severe emphysema and chronic pulmonary interstitial disease.
== END 2023-01-21 08:27 | disposition home or self-care (01) ==
PROVIDERS: PCP Nurse Practitioner; Visit Provider Internal Medicine Hematology & Oncology
DX: C34.12 Malignant neoplasm of upper lobe, left bronchus or lung (principal); J43.9 Emphysema, unspecified
CPT/HCPCS: 36415; 71250; 74176; 80053; 85025

== ENCOUNTER 2023-01-21 08:56 | Outpatient (CLI) | payer MEDICARE, SELFPAY ==
[2023-01-21 09:16] LABS: Basophils Absolute Auto 0.1 K/mm3 (0.0-0.1); Basophils Percent Auto 0.5 % (0.2-1.2); Eosinophils Absolute Auto 0.5 K/mm3 (0-0.3); Eosinophils Percent Auto 5.5 % (0-4.4); Hematocrit 40.5 % (42.0-52.0); Hemoglobin 12.9 g/dL (14.0-18.0); Immature Granulocyte Absolute 0.08 K/mm3 (0.00-0.031); Immature Granulocyte Percent A 0.8 % (0-0.5); Lymphocytes Percent Auto 19.9 % (18.3-44.2); Mean Corpuscular HGB Conc 31.9 g/dl (32-36); Mean Corpuscular Hemoglobin 28.2 pg (26-34); Mean Corpuscular Volume 88.6 fl (80-100); Mean Platelet Volume 10.4 fl (7.4-10.4); Monocytes Absolute Auto 1.2 K/mm3 (0.1-0.6); Monocytes Percent Auto 12.9 % (2.6-8.5); Neutrophils Absolute Auto 5.8 K/mm3 (1.3-6.7); Neutrophils Percent Auto 60.4 % (45.5-73.1); Platelet Count Result 179 k/mm3 (150-375); Red Blood Count 4.57 M/mm3 (4.6-6.20); Red Cell Distribution Width 13.8 % (11.5-14.5); White Blood Count 9.5 K/mm3 (4.5-10.0)
[2023-01-21 12:05] LABS: Alanine Aminotransferase 46 U/L (6-50); Albumin Level 3.8 g/dL (3.5-5.1); Alkaline Phosphatase 148 U/L (38-126); Anion Gap 9 mmol/L (8-16); Aspartate Amino Transferase 63 U/L (17-59); Bilirubin,Total 0.6 mg/dL (0.2-1.3); Blood Urea Nitrogen 16 mg/dL (9-20); Calcium 9.1 mg/dL (8.4-10.2); Carbon Dioxide 24 mmol/L (22-30); Chloride 104 mmol/L (98-107); Estimated Glomerular Filt Rate 45; Glucose 101 mg/dL (65-110); Potassium 3.7 mmol/L (3.4-5.0); Sodium 137 mmol/L (137-145)
== END 2023-01-21 08:57 | disposition home or self-care (01) ==
LOC: ANHLAB 09:00
PROVIDERS: PCP Nurse Practitioner; Visit Provider Internal Medicine Hematology & Oncology
DX: C34.12 Malignant neoplasm of upper lobe, left bronchus or lung (principal)
CPT/HCPCS: 36415; 80053; 85025

== ENCOUNTER 2023-02-26 11:04 | Outpatient (CLI) | payer MEDICARE, SELFPAY ==
--- NOTE | ~2023-02-26 | XR_ITS ---
EXAMINATION: XR lumbar spine min 4V DATE: 02/26/2023 11:16 INDICATION: History of lung cancer TECHNIQUE: Anteroposterior, lateral, and bilateral oblique views of the lumbar spine, and cone-down l ateral view of the lumbosacral junction were obtained. COMPARISON: 07/23/2004; CT, 01/21/2023 FINDINGS: There are 2 mm of anterolisthesis of L4 on L5 and 3 mm of anterolisthesis of L5 on S1. The vertebral body heights are maintained there is severe loss of intervertebral disc space height at L2- 3. There is moderate loss of intervertebral disc space height at L3-4 and L4-5. There is no fracture. There is severe facet joint osteoarthritis of the lower lumbar spine. There are bilateral L5 pars de fects. Calcified atherosclerosis is noted. IMPRESSION: 1. Severe lumbar spondylosis at L2-3 with otherwise moderate lumbar spondylosis. 2. Bilateral L5 pars defects. Reviewed, dictated and finalized at location F. ONAL FITNESS MANAGER IMPRESSION: 1. Severe lumbar spondylosis at L2-3 with otherwise moderate lumbar spondylosis . 2. Bilateral L5 pars defects.
--- NOTE | ~2023-02-26 | XR_ITS ---
EXAMINATION: XR foot LT standing 2V INDICATION: Left foot pain TECHNIQUE: Two views of the left foot are obtained. COMPARISON: None available FINDINGS: Bone alignment is normal. There is no fracture. There is mild osteoarthritis at the first m etatarsophalangeal joint and multiple interphalangeal joints. The soft tissues are unremarkable. Pes planus is noted. There is a plantar calcaneal enthesophyte. IMPRESSION: 1. 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 Reviewed, dictated and finalized at location F. ASTRUCTURE SOFTWARE ENGINEER
--- NOTE | ~2023-02-26 | XR_ITS ---
EXAM: XR hand BI arthritis min 3V DATE: 02/26/2023 11:16 HISTORY: C34.90 - Malignant neoplasm of unspecified part of unspec... . COMPARISON: None available. FINDINGS: Normal mineralization. No fracture or dislocation. Degenerative appearing lateral subluxat ion in the DIP and PIP joints of the index fingers. No ulnar subluxation at the MCP joints. No lytic or blastic lesion. Diffuse osteoarthritic type narrowing of the joints of the fingers and wrists, gustabo ewhat unusual distribution, most pronounced in the right interphalangeal joint of the thumb, bilatera l DIP, PIP, and MCP joints of the second and third digits, left trapeziometacarpal joint and right tr iscaphe joint. Hooklike osteophytes at the bilateral second and third metacarpal heads, classically d escribed in hemachromatosis but also be seen with CPPD, OA, and RA. No erosion or periosteal change. Scattered vascular calcification. No chondrocalcinosis. IMPRESSION: Polyarticular arthritic changes of the hands, likely polyarticular osteoarthritis. Hemach romatosis and CPPD should also be considered in the differential. Reviewed, dictated and finalized at location K. Y YEARS TEACHER IMPRESSION: Polyarticular arthritic changes of the hands, likely polyarticular osteoarthritis. Hemachromatosis and CPPD should also be considered in the diffe rential.
--- NOTE | ~2023-02-26 | XR_ITS ---
EXAMINATION: XR foot RT standing 2V INDICATION: History of lung cancer TECHNIQUE: Two views of the right foot are obtained. COMPARISON: None available FINDINGS: There is moderate osteoarthritis at the first metatarsophalangeal joint. Mild osteoarthriti s is noted in multiple interphalangeal joints. There is no fracture. The soft tissues are unremarkabl e. Pes planus is noted. There are posterior and plantar calcaneal enthesophytes. IMPRESSION: 1. 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 Reviewed, dictated and finalized at location F. RCYCLE SERVICE TECHNICIAN
[2023-02-26 12:43] LABS: Uric Acid 6.6 mg/dL (3.5-8.5)
[2023-02-26 14:17] LABS: Vitamin D 25 Hydroxy 45.3 ng/mL
[2023-02-26 17:21] LABS: Rheumatoid Factor > 120.0 IU/ML (<12)
[2023-02-28 19:49] LABS: PNL A Neg Control 0; PNL B Corr Neg Control 0; T SPOT NEG CONTROL Passed; T SPOT POS CONTROL Passed; T Spot TB Result Negative (Negative)
[2023-03-02 23:43] LABS: Anti Cyclic Citrullinated Pept >250 Units (<20)
== END 2023-02-26 11:05 | disposition home or self-care (01) ==
PROVIDERS: PCP Nurse Practitioner; Visit Provider Internal Medicine
DX: C34.90 Malignant neoplasm of unspecified part of unspecified bronchus or lung (principal); Z86.010 Personal history of colon polyps; M06.9 Rheumatoid arthritis, unspecified; M06.041 Rheumatoid arthritis without rheumatoid factor, right hand; M06.042 Rheumatoid arthritis without rheumatoid factor, left hand; M19.90 Unspecified osteoarthritis, unspecified site; M19.071 Primary osteoarthritis, right ankle and foot; M19.072 Primary osteoarthritis, left ankle and foot; M19.041 Primary osteoarthritis, right hand; M19.042 Primary osteoarthritis, left hand; M47.896 Other spondylosis, lumbar region
CPT/HCPCS: 36415; 72110; 73130; 73620; 82306; 84550; 86200; 86430; 86481; 86803

== ENCOUNTER 2023-03-10 12:42 | Emergency (ER) | payer MEDICARE, SELFPAY ==
--- NOTE | ~2023-03-10 | XR_ITS ---
XR chest 2V 03/10/2023 13:42 Indication: Chest pain Procedure: 2 view chest Comparison: Comparison to multiple prior studies sequentially, with oldest reviewed study dated 03/08. Findings: Patchy bilateral airspace disease, compatible with pneumonia no pleural effusion. No pneumo thorax. No acute osseous abnormality. Impression: 1: Patchy bilateral airspace disease, compatible with pneumonia. Reviewed, dictated and finalized at location B. CANVAS INSTALLER Impression: 1: Patchy bilateral airspace disease, compatible with pneumonia.
[2023-03-10 12:44] VITALS: BP 121/58; PULSE 110; RESP 22; TEMP 36.4; O2SAT 99
--- NOTE | 2023-03-10 12:49 | ECG_ITS ---
Measurements Intervals [place] Rate: 103 P: 18 UT: 148 QRS: 45 QRSD: 150 T: 23 QT: 400 QTc: 524 Interpretive Statements SINUS TACHYCARDIA INDETERMINATE AXIS RIGHT BUNDLE BRANCH BLOCK [120+ ms QRS DURATION, UPRIGHT V1, 40+ ms S IN I/aVL/V4/V5/V6] ABNORMAL ECG COMPARED TO ECG 05/14/2019 16:16:12 RIGHT BUNDLE BRANCH BLOCK IS NEW Electronically Signed On 03-10-2023 15:26:27 JOURNEYMAN PIPE WELDER by Jose Huertas M.D.
--- NOTE | 2023-03-10 13:02 | ED.SOB ---
HPI - SOB/Dyspnea General Chief Complaint: Shortness of Breath/Dyspnea <Nahed Harper PA-C - Last Filed: 03/10/23 16:08> Stated Complaint: sob cp <Nahed Harper PA-C - Last Filed: 03/10/23 16:08> Time Seen by Provider: 03/10/23 20:36 <Nahed Harper PA-C - Last Filed: 03/10/23 16:08> Source: patient and family () <Kalyani Guzman MD - Last Filed: 03/12/23 17:17> Limitations: no limitations <Kalyani Guzman MD - Last Filed: 03/12/23 17:17> History of Present Illness HPI Narrative: 77-year-old male with a history of COPD, GERD, angina, BENIGNO reports for evaluation for chest pain that occurred at 12:15 pm, lasting 20 minutes and has since resolved. Patient states he was on his way home from a nuclear stress test that was ordered by his manager convention. He was in the car when he had sudden onset chest pain that did not radiate anywhere. It was associated with diaphoresis, nausea and shortness of breath. States that resolved in 20 minutes and he feels fine now. He states he has daily chest pains that have been diagnosed as angina and I have also been assumed to be esophageal spasms. He is scheduled for an EGD next month. Patient does not know the name of his manager convention with states he sees a at [facility]. Denies syncope, current chest pain or shortness of breath, history of IL, history of stents or CABG. He does wear 2 L nasal cannula when ambulating, no oxygen required a baseline. <Nahed Harper PA-C - Last Filed: 03/10/23 16:08> 77-year-old male with a history of COPD, GERD, angina, BENIGNO reports for evaluation for chest pain that occurred at 12:15 pm, lasting 20 minutes and has since resolved. Patient states he was on his way home from a nuclear stress test that was ordered by his manager convention. He was in the car when he had sudden onset chest pain that radiated superiorly. It was associated with diaphoresis, nausea and shortness of breath. States that resolved in 20 minutes and he feels fine now. He states he has daily chest pains that have been diagnosed as angina and possible esophageal spasms. He usually takes peppermint tea and tums at home for this. He is scheduled for an EGD next month. Patient does not know the name of his manager convention ; states he sees a at [facility]. Denies abdominal pain, syncope, current chest pain or shortness of breath, history of IL, history of stents or CABG. States he occasionally has a cough, chronic. No unilateral leg swelling/edema. He does wear 2 L nasal cannula when ambulating, no oxygen required a baseline. <Kalyani Guzman MD - Last Filed: 03/12/23 17:17> Related Data Home Medications: Home Medications Medication Instructions Recorded Confirmed hydrocodone 10 mg-acetaminophen 1 tablet PO Q6H PRN Pain 02/21/20 03/12/23 325 mg tablet tamsulosin 0.4 mg capsule 0.4 mg PO QHS 08/01/20 03/12/23 triamterene 37.5 1 tablet PO QAM 02/14/21 03/12/23 mg-hydrochlorothiazide 25 mg tablet aspirin 81 mg tablet,delayed 81 mg PO DAILY 06/25/22 03/12/23 release (Aspir-) magnesium 250 mg tablet 400 mg PO DAILY 06/25/22 03/12/23 budesonide 160 mcg-glycopyr 9 2 inh inhalation BID 07/25/22 03/12/23 mcg-formot 4.8 mcg/actuation HFA inhaler (Breztri Aerosphere) abatacept 125 mg/mL subcutaneous 125 mg subcut WEEKLY 02/26/23 03/12/23 syringe (Orencia) albuterol sulfate 90 mcg/actuation 2 puff inhalation Q4-6H PRN 03/12/23 03/12/23 aerosol inhaler Shortness Of Breath famotidine 20 mg tablet 20 mg PO DAILY 03/12/23 03/12/23 fluticasone propionate 50 2 spray intranasal BID PRN 03/12/23 03/12/23 mcg/actuation nasal Congestion spray,suspension (Allergy Relief (fluticasone)) omeprazole 40 mg capsule,delayed 40 mg PO DAILY 03/12/23 03/12/23 release pravastatin 20 mg tablet 20 mg PO HS 03/12/23 03/12/23 prednisone 2.5 mg tablet 2.5 mg PO TID 03/12/23 03/12/23 trazodone 50 mg tablet 100 mg PO HS PRN Insomnia 12
[2023-03-10 13:05] LABS: Basophils Absolute Auto 0.1 K/mm3 (0.0-0.1); Basophils Percent Auto 0.8 % (0.2-1.2); Eosinophils Absolute Auto 0.5 K/mm3 (0-0.3); Eosinophils Percent Auto 5.1 % (0-4.4); Hematocrit 40.3 % (42.0-52.0); Hemoglobin 12.7 g/dL (14.0-18.0); Immature Granulocyte Absolute 0.04 K/mm3 (0.00-0.031); Immature Granulocyte Percent A 0.4 % (0-0.5); Lymphocytes Absolute Auto 2.12 K/mm3 (0.9-3.2); Lymphocytes Percent Auto 20.8 % (18.3-44.2); Mean Corpuscular HGB Conc 31.5 g/dl (32-36); Mean Corpuscular Volume 85.6 fl (80-100); Mean Platelet Volume 10.7 fl (7.4-10.4); Monocytes Absolute Auto 1.1 K/mm3 (0.1-0.6); Monocytes Percent Auto 10.5 % (2.6-8.5); Neutrophils Absolute Auto 6.3 K/mm3 (1.3-6.7); Neutrophils Percent Auto 62.4 % (45.5-73.1); Platelet Count Result 209 k/mm3 (150-375); Red Blood Count 4.71 M/mm3 (4.6-6.20); Red Cell Distribution Width 14.8 % (11.5-14.5); White Blood Count 10.2 K/mm3 (4.5-10.0)
[2023-03-10 13:18] LABS: INR 1.1; Partial Thromboplastin Time 31.2 SECONDS (22.3-36.8); Prothrombin Time 14.2 Seconds (11.1-14.7)
[2023-03-10 13:19] LABS: Alanine Aminotransferase 32 U/L (6-50); Albumin Level 3.9 g/dL (3.5-5.1); Alkaline Phosphatase 130 U/L (38-126); Anion Gap 12 mmol/L (8-16); Aspartate Amino Transferase 53 U/L (17-59); Bilirubin,Total 0.8 mg/dL (0.2-1.3); Blood Urea Nitrogen 21 mg/dL (9-20); Calcium 9.7 mg/dL (8.4-10.2); Carbon Dioxide 24 mmol/L (22-30); Chloride 99 mmol/L (98-107); Estimated CRCL calculation 38 ml/min; Estimated Glomerular Filt Rate 39; Glucose 120 mg/dL (65-110); Lipase 129 U/L (23-300); Potassium 3.4 mmol/L (3.4-5.0); Sodium 135 mmol/L (137-145)
[2023-03-10 13:29] LABS: Troponin I < 0.012 ng/mL (0.000-0.034)
--- NOTE | 2023-03-10 14:14 | PC.NURSE ---
Lab called to add on BNP to patient's blood work
[2023-03-10 14:33] VITALS: BP 119/64; PULSE 104; RESP 16; TEMP 36.6; O2SAT 96
[2023-03-10 14:35] LABS: NT Pro B Type Natriuretic Pept 48 pg/mL (19.9-100)
[2023-03-10 19:57] VITALS: BP 115/82; PULSE 102; RESP 20; O2SAT 96
[2023-03-10 20:27] LABS: Troponin I 0.022 ng/mL (0.000-0.034)
[2023-03-10] MEDS: BELLADONNA ALK/PHENOB ELIX 10 ML, MAG HYDROX/ALUMINUM HYD/SIMETH 30 ML, LIDOCAINE HCL 2... PO (20:58)
[2023-03-10 21:18] LABS: D Dimer 1.05 ug/mL (<0.48)
[2023-03-10] MEDS: SODIUM CHLORIDE 0.9% IV 1,000 ML 999 ML IV CONT (21:41)
[2023-03-10 22:42] VITALS: BP 123/80; PULSE 90; RESP 19; O2SAT 97
== END 2023-03-10 22:42 | disposition home or self-care (01) ==
PROVIDERS: Emergency Medicine; Physician Assistant; Emergency Provider Student in an Organized Health Care Education/Training Program; PCP Nurse Practitioner Family
DX: J18.9 Pneumonia, unspecified organism (principal); R07.89 Other chest pain; I10 Essential (primary) hypertension; J43.9 Emphysema, unspecified; E78.00 Pure hypercholesterolemia, unspecified; G47.33 Obstructive sleep apnea (adult) (pediatric); M06.89 Other specified rheumatoid arthritis, multiple sites; K21.9 Gastro-esophageal reflux disease without esophagitis; Z99.81 Dependence on supplemental oxygen; Z96.651 Presence of right artificial knee joint; Z85.118 Personal history of other malignant neoplasm of bronchus and lung; Z85.72 Personal history of non-Hodgkin lymphomas; Z86.16 Personal history of COVID-19; Z87.442 Personal history of urinary calculi; Z87.891 Personal history of nicotine dependence; Z98.49 Cataract extraction status, unspecified eye; Z90.49 Acquired absence of other specified parts of digestive tract; Z79.84 Long term (current) use of oral hypoglycemic drugs; R00.0 Tachycardia, unspecified; I45.10 Unspecified right bundle-branch block
CPT/HCPCS: 36415; 71046; 80053; 83690; 83880; 84484; 85025; 85380; 85610; 85730; 93005; 96360; 99284; A9270; J7030

== ENCOUNTER 2023-03-26 03:53 | Day surgery (SDC) | payer MEDICARE, SELFPAY ==
[2023-03-12 10:26] VITALS: BMI 35.7
--- NOTE | 2023-03-24 08:49 | SUR.PREOP ---
Patient called regarding upcoming procedure. Reviewed preop instructions, appointment times, and procedure prep.
--- NOTE | 2023-03-26 11:01 | PM.HPGS ---
History of Present Illness History of Present Illness Consent: Risks, benefits, and alternatives have been discussed and questions answered. Patient agrees to proceed with procedure. Chief complaint: melena Narrative: Dilan Weaver is a 77 year old male Who is referred for investigation of chest pain. He is known to have acid reflux disease. He has been to the emergency room twice in the past few weeks with chest pain. EKG and troponins were normal and CT-A of the chest was unremarkable. Last month he had black tarry stools for couple of weeks. Hemoglobin was drawn and was 12.2, whereas earlier this year it had been over 14. Review of Systems Review of Systems: All systems reviewed & are unremarkable except as noted in HPI and below PMFSH Past Medical History Medical History Benign essential hypertension Benign prostatic hyperplasia with lower urinary tract symptoms Cataracts, bilateral Chronic low back pain Chronic obstructive pulmonary disease, unspecified COVID-19 Diverticulitis Diverticulosis Elevated LFTs Emphysema of lung Follicular lymphoma grade II, unspecified site Gastrointestinal ulcer GERD (gastroesophageal reflux disease) History of rectal polyps Hypercholesterolemia Influenza A Kidney stones Lung cancer Lung nodule Mixed hyperlipidemia Obesity Obstructive sleep apnea (adult) (pediatric) Rheumatoid arthritis involving multiple sites Shingles Splenomegaly Surgical History Surgical History History of back surgery History of right knee joint replacement Hx of cataract surgery Hx of cholecystectomy Family History Family History Mother Family history of osteoarthritis Family history of congestive heart failure, Onset Age: 90 Family history of malignant neoplasm of breast in first degree relative Sibling Carcinoma of colon, Onset Age: 66 Family history of lupus erythematosus, Onset Age: 21 Family history of primary malignant neoplasm of liver Father Acute myocardial infarction Hypertension, Onset Age: 68 Family history of cardiovascular disease, Onset Age: 68 Social History Social History Smoking packs per day: 2 Smoking cigarettes per day: 40.0 Years smoked: 36 Smoking pack-years: 72.00 Smoking status: Former smoker Tobacco type: cigarettes Smoking end date: 04/07/86 Alcohol intake: never Alcohol use details: occasionally Substance use: never Substance use type: does not use Living arrangements: with family Gender identity (if verbalized by the patient): Male Sexual Orientation (if Verbalized by the Patient): Straight or Heterosexual Spiritual care concerns: No Agree to blood products: Yes Meds Home Medications and Allergies Home Medications Medication Instructions Recorded Confirmed Type hydrocodone 10 mg-acetaminophen 1 tablet PO Q6H PRN Pain 02/21/20 03/12/23 History 325 mg tablet tamsulosin 0.4 mg capsule 0.4 mg PO QHS 08/01/20 03/12/23 History blood-glucose meter (Accu-Chek #1 ea 08/04/20 03/04/23 Rx Guide Glucose Meter) lancets (Accu-Chek Multiclix #200 ea 08/04/20 03/04/23 Rx Lancet) blood sugar diagnostic (Accu-Chek #100 ea 11/06/20 03/04/23 Rx Guide test strips) triamterene 37.5 1 tablet PO QAM 02/14/21 03/12/23 History mg-hydrochlorothiazide 25 mg tablet aspirin 81 mg tablet,delayed 81 mg PO DAILY 06/25/22 03/12/23 History release (Aspir-) magnesium 250 mg tablet 400 mg PO DAILY 06/25/22 03/12/23 History budesonide 160 mcg-glycopyr 9 2 inh inhalation BID 07/25/22 03/12/23 History mcg-formot 4.8 mcg/actuation HFA inhaler (Breztri Aerosphere) diltiazem HCl 240 mg capsule,24 240 mg PO DAILY #90 caps 12/16/22 03/12/23 Rx hr,extended release abatacept 125 mg/
[2023-03-26 12:59] VITALS: BP 135/51; PULSE 95; RESP 18; TEMP 36.2; O2SAT 97; BMI 35.2
[2023-03-26 13:11] LABS: Glucose Point of Care 78 mg/dl (65-105)
[2023-03-26] MEDS: LACTATED RINGERS 1,000 ML 150 ML IV CONT (13:19)
--- NOTE | 2023-03-26 13:19 | WPDANESEPPF ---
Anes - Initial Pre Proc Eval Procedure: Operation Date: 03/26/23 14:00 Proposed Procedures p Esophagogastroduodenoscopy - Rodney Marte MD Date/Time: 03/26/23 13:19 Surgeon: Rodney Marte MD Pre Op Diagnosis: melena Patient Data Age: 77 Gender: M Height: 1.7 m Weight: 102 kg Last Vital Signs Temp 36.2 C L 03/26/23 12:59 Pulse 95 03/26/23 12:59 Resp 18 03/26/23 12:59 BP 135/51 L 03/26/23 12:59 Pulse Ox 97 03/26/23 12:59 O2 Del Method Room Air 03/26/23 12:59 Allergies Allergy/AdvReac Type Severity Reaction Status Date / Time Iodinated Contrast Media Allergy Severe Hives Verified 03/12/23 10:27 infliximab [From Remicade] AdvReac Intermediate Rash Verified 03/12/23 10:27 Home Medications Medication Instructions Recorded Confirmed Type hydrocodone 10 mg-acetaminophen 1 tablet PO Q6H PRN Pain 02/21/20 03/12/23 History 325 mg tablet tamsulosin 0.4 mg capsule 0.4 mg PO QHS 08/01/20 03/12/23 History blood-glucose meter (Accu-Chek #1 ea 08/04/20 03/04/23 Rx Guide Glucose Meter) lancets (Accu-Chek Multiclix #200 ea 08/04/20 03/04/23 Rx Lancet) blood sugar diagnostic (Accu-Chek #100 ea 11/06/20 03/04/23 Rx Guide test strips) triamterene 37.5 1 tablet PO QAM 02/14/21 03/12/23 History mg-hydrochlorothiazide 25 mg tablet aspirin 81 mg tablet,delayed 81 mg PO DAILY 06/25/22 03/12/23 History release (Aspir-) magnesium 250 mg tablet 400 mg PO DAILY 06/25/22 03/12/23 History budesonide 160 mcg-glycopyr 9 2 inh inhalation BID 07/25/22 03/12/23 History mcg-formot 4.8 mcg/actuation HFA inhaler (Breztri Aerosphere) diltiazem HCl 240 mg capsule,24 240 mg PO DAILY #90 caps 12/16/22 03/12/23 Rx hr,extended release abatacept 125 mg/mL subcutaneous 125 mg subcut WEEKLY 02/26/23 03/12/23 History syringe (Orencia) hydroxychloroquine 200 mg tablet 400 mg PO DAILY #180 tabs 02/26/23 03/12/23 Rx metformin 500 mg tablet 1,000 mg PO DAILY #180 tabs 03/06/23 03/12/23 Rx albuterol sulfate 90 mcg/actuation 2 puff inhalation Q4-6H PRN 03/12/23 03/12/23 History aerosol inhaler Shortness Of Breath famotidine 20 mg tablet 20 mg PO DAILY 03/12/23 03/12/23 History fluticasone propionate 50 2 spray intranasal BID PRN 03/12/23 03/12/23 History mcg/actuation nasal Congestion spray,suspension (Allergy Relief (fluticasone)) omeprazole 40 mg capsule,delayed 40 mg PO DAILY 03/12/23 03/12/23 History release pravastatin 20 mg tablet 20 mg PO HS 03/12/23 03/12/23 History prednisone 2.5 mg tablet 2.5 mg PO TID 03/12/23 03/12/23 History trazodone 50 mg tablet 100 mg PO HS PRN Insomnia 03/12/23 03/12/23 History Laboratory Tests 03/26/23 13:08 POC Capillary Glucose 78 mg/dl (65-105) Patient hx anesthesia problems: none Family hx anesthesia problems: none Results Review: All pre-operative results and documents have been reviewed as part of the pre-operative evaluation. [facility] Past Medical History Medical History Benign essential hypertension Benign prostatic hyperplasia with lower urinary tract symptoms Cataracts, bilateral Chronic low back pain Chronic obstructive pulmonary disease, unspecified COVID-19 Diverticulitis Diverticulosis Elevated LFTs Emphysema of lung Follicular lymphoma grade II, unspecified site Gastrointestinal ulcer GERD (gastroesophageal reflux disease) History of rectal polyps Hypercholesterolemia Influenza A Kidney stones Lung cancer Lung nodule Mixed hyperlipidemia Obesity Obstructive sleep apnea (adult) (pediatric) Rheumatoid arthritis involving multiple sites Shingles Splenomegaly Surgical History Surgical History History of back surgery History of right knee joint replacement Hx of cataract surgery Hx of cholecystectomy Family History Family History (Reviewed 03/10/23 @ 13:07 by Nahed Harper,
[2023-03-26 13:35] VITALS: BP 116/62; PULSE 69; RESP 18; O2SAT 93
[2023-03-26 13:45] VITALS: BP 138/58; PULSE 64; RESP 19; O2SAT 95
[2023-03-26 13:55] VITALS: BP 134/72; PULSE 74; RESP 20; O2SAT 96
== END 2023-03-26 14:02 | disposition home or self-care (01) ==
PROVIDERS: PCP Nurse Practitioner Family; Visit Provider Internal Medicine Gastroenterology
PROC: 0DJ08ZZ Inspection of Upper Intestinal Tract, Via Natural or Artificial Opening Endoscopic (ICD-10-PCS; CPT 43235; principal; 2023-03-26 14:00)
DX: K21.00 Gastro-esophageal reflux disease with esophagitis, without bleeding (principal); K29.70 Gastritis, unspecified, without bleeding; I10 Essential (primary) hypertension; N40.1 Benign prostatic hyperplasia with lower urinary tract symptoms; J43.9 Emphysema, unspecified; E78.00 Pure hypercholesterolemia, unspecified; G47.33 Obstructive sleep apnea (adult) (pediatric); M06.89 Other specified rheumatoid arthritis, multiple sites; Z85.72 Personal history of non-Hodgkin lymphomas; Z87.891 Personal history of nicotine dependence; Z79.82 Long term (current) use of aspirin; Z79.84 Long term (current) use of oral hypoglycemic drugs; Z79.51 Long term (current) use of inhaled steroids; E66.9 Obesity, unspecified; Z68.35 Body mass index [BMI] 35.0-35.9, adult
CPT/HCPCS: 43239; 82948; 87081; 88305; J2704; J7120

== ENCOUNTER 2023-06-23 11:27 | Outpatient (CLI) | payer MEDICARE, SELFPAY ==
--- NOTE | ~2023-06-23 | XR_ITS ---
XR ribs BI 3V w CXR 2V DATE: 06/23/2023 12:25 INDICATION: Chest pain TECHNIQUE: PA and lateral chest. Multiple views of left and right ribs. COMPARISON: 03/2023 AP and lateral chest FINDINGS: No rib fracture or bone destruction is detected. Osteoarthritic changes are noted at the left glenohumeral joint. Degenerative changes at the acromioc lavicular joints. Osteopenia. Degenerative spurring of the thoracic and lumbar spine. Chronic discoid scarring primarily involving left mid lung and to a lesser extent right mid lung. Heart size is within normal range. No pleural effusion or pulmonary vascular congestion or pneumothor ax is detected. Diffuse osteopenia. Surgical clips, right upper quadrant, likely due to cholecystectomy. IMPRESSION: No rib fracture or bone destruction is detected Chronic bilateral primarily midlung scarring Reviewed, dictated and finalized at location L.
--- NOTE | ~2023-06-23 | XR_ITS ---
Thoracic spine: Clinical Indication: Chest pain AP and lateral views were performed. No fracture is seen. There is normal alignment of the vertebrae. The intervertebral disc spaces appe ar normal. Paravertebral soft tissues appear normal. Described opacity in the left midlung probably r epresents scarring or atelectasis. Impression: No significant abnormalities noted in the thoracic spine itself. Probable scarring or atelectasis left midlung. Reviewed, dictated and finalized at location . Impression: No significant abnormalities noted in the thoracic spine itself. Probable scarring or atelectasis left midlung.
== END 2023-06-23 11:28 ==
PROVIDERS: PCP Nurse Practitioner; Visit Provider Nurse Practitioner
DX: R07.89 Other chest pain (principal); C34.90 Malignant neoplasm of unspecified part of unspecified bronchus or lung; E78.00 Pure hypercholesterolemia, unspecified; R19.8 Other specified symptoms and signs involving the digestive system and abdomen; R63.4 Abnormal weight loss; R91.1 Solitary pulmonary nodule
CPT/HCPCS: 71046; 71110; 72070

== ENCOUNTER 2023-07-07 10:21 | Outpatient (CLI) | payer MEDICARE, SELFPAY ==
--- NOTE | ~2023-07-07 | DEXA_ITS ---
Bone Density Report Name: MEIR MOSQUEDA Age: 77 Sex: Male Ethnicity: White Date of : 1945 Indication: screening for osteoporosis; parental hip fracture; height loss; inflammatory bowel disease; history of glucocorticoids; cancer; asthma or emphysema; rheumatoid arthritis; secondary osteoporosis; Referring Provider: LILIYA FERRO Study: Bone densitometry was performed. Exam Date: July 07, 2023 Accession number: [id number] Bone Density: Region BMD T-score Z-score Classification AP Spine(L1, L3, L4) 0.966 -1.1 0.0 Osteopenia Femoral Neck (Left) 0.829 -0.7 0.7 Normal Total Hip (Left) 1.122 0.6 1.6 Normal Femoral Neck (Right) 0.728 -1.5 0.0 Osteopenia Total Hip (Right) 1.055 0.1 1.1 Normal Total Hip Mean 1.089 0.4 1.4 Normal World Health Organization criteria for BMD impression classify patients as: Normal (T-score at or above -1.0), Osteopenia (T-score between -1.0 and -2.5), or Osteoporosis (T-score at or below -2.5). 10-year Fracture Risk(1): Major Osteoporotic Fracture 26% Hip Fracture 19% Reported Risk Factors: [place] (), Neck BMD=0.728, BMI=34.3, parental fracture, glucocorticoids, rheumatoid arthritis, secondary osteoporosis (1) FRAX(R) Version 3.08. Fracture probability calculated for an untreated patient. Fracture probability may be lower if the patient has received treatment. Clinical Information Provided by Patient: Parent has had a hip fracture Has taken Glucocorticoids Has rheumatoid arthritis Has secondary osteoporosis Has the following medical conditions: Asthma or Emphysema, Cancer, Inflammatory bowel diseases Patient maximum height was 69.5 No regular weight bearing exercise Drinks caffeinated beverages Impression: The patient has low bone mass, based on the Right Femoral Neck T-score. The patient has an estimated ten-year risk of hip fracture of 19% and an estimated ten-year risk of major fracture of 26%, based on the WHO FRAX algorithm. The patient has risk factors, including: parental hip fracture, history of glucocorticoid therapy. Discussion: BONE DENSITY IS LOW AT ONE OR MORE SKELETAL SITES. THE PATIENT'S BMD AND CLINICAL RISK FACTORS CONTRIBUTE TO THIS PATIENT'S HIGH RISK OF FRACTURE. This patient's lowest T-score is low at one or more skeletal sites. It meets the World Health Organization's (WHO) criteria for ?low bone mass? (T-score between -1.0 and -2.5). The patient's 10-year risk of hip fracture and 10 year risk of a major osteoporotic fracture as calculated by FRAX exceeds the threshold where pharmacological therapy is recommended by the National Osteoporosis Foundation (NOF). However, all treatment decisions require clinical judgment and consideration of individual patient factors, including patient preferences, comorbidities, p
== END 2023-07-07 10:22 | disposition home or self-care (01) ==
LOC: ANHIMG 10:22
PROVIDERS: PCP Nurse Practitioner; Visit Provider Nurse Practitioner Family
DX: Z13.820 Encounter for screening for osteoporosis (principal); Z79.899 Other long term (current) drug therapy; Z92.241 Personal history of systemic steroid therapy; M85.88 Other specified disorders of bone density and structure, other site; M85.851 Other specified disorders of bone density and structure, right thigh
CPT/HCPCS: 77080

== ENCOUNTER 2023-07-17 12:51 | Outpatient (CLI) | payer MEDICARE, SELFPAY ==
--- NOTE | ~2023-07-17 | XR_ITS ---
[id number] 07/17/2023 13:10 Indication: Rheumatoid arthritis Procedure: 4 views of the cervical spine Comparison: No prior studies for comparison. Findings: There is advanced facet hypertrophy of the mid and lower cervical spine. There is degenerat emily anterolisthesis at C4-5 and C5-6. Lung apices are normal. Odontoid process is normal. There is ca rotid atherosclerosis. No prevertebral soft tissue abnormality. Impression: 1: Severe cervical spondylosis. Reviewed, dictated and finalized at location A. Impression: 1: Severe cervical spondylosis.
== END 2023-07-17 12:52 | disposition home or self-care (01) ==
PROVIDERS: PCP Nurse Practitioner
DX: M06.9 Rheumatoid arthritis, unspecified (principal); M47.892 Other spondylosis, cervical region
CPT/HCPCS: 72040

== ENCOUNTER 2023-08-04 08:23 | Outpatient (CLI) | payer MEDICARE, SELFPAY ==
--- NOTE | ~2023-08-04 | CT_ITS ---
CT Scan of the Chest without Contrast: Clinical Indication: Lung cancer Technique: Contiguous sections were acquired throughout the chest without intravenous contrast. Dose reduction technique was used on this scan by utilizing automated exposure control and iterative recon struction technique. The dose-length product (DLP) was 484.52 mGy-cm. COMPARISON: 01/21/2023 Findings: There is no evidence of any significant mediastinal, hilar or axillary lymphadenopathy. Extensive cor onary artery calcifications are present. There is no evidence of pleural or pericardial effusion. Irregular, somewhat bandlike consolidation left upper lobe is stable to minimally improved from prior exam, most compatible with post radiation or other post therapy change, and/or treated disease. Adva nced emphysema again present bilaterally. There is mild bibasilar peripheral chronic interstitial stephanie nge. Images through the upper abdomen reveal cholecystectomy clips. Impression: Stable to minimally improved post therapy or post radiation change in the left upper lobe, with possi ble underlying treated disease. Advanced emphysema. Reviewed, dictated and finalized at [facility]. Impression: Stable to minimally improved post therapy or post radiation change in the left upper lobe, with possible underlying treated disease. Advanced emphysema.
== END 2023-08-04 08:24 | disposition home or self-care (01) ==
PROVIDERS: PCP Nurse Practitioner; Visit Provider Internal Medicine Hematology & Oncology
DX: C34.12 Malignant neoplasm of upper lobe, left bronchus or lung (principal); J43.9 Emphysema, unspecified
CPT/HCPCS: 36415; 71250; 80053; 85025

== ENCOUNTER 2023-08-04 09:05 | Outpatient (CLI) | payer MEDICARE, SELFPAY ==
[2023-08-04 09:24] LABS: Basophils Percent Auto 0.4 % (0.2-1.2); Eosinophils Absolute Auto 0.2 K/mm3 (0-0.3); Eosinophils Percent Auto 1.8 % (0-4.4); Hematocrit 37.5 % (42.0-52.0); Immature Granulocyte Absolute 0.05 K/mm3 (0.00-0.031); Immature Granulocyte Percent A 0.4 % (0-0.5); Lymphocytes Absolute Auto 1.48 K/mm3 (0.9-3.2); Lymphocytes Percent Auto 13.1 % (18.3-44.2); Mean Corpuscular Hemoglobin 27.2 pg (26-34); Monocytes Absolute Auto 0.8 K/mm3 (0.1-0.6); Monocytes Percent Auto 6.8 % (2.6-8.5); Neutrophils Absolute Auto 8.8 K/mm3 (1.3-6.7); Neutrophils Percent Auto 77.5 % (45.5-73.1); Platelet Count Result 152 k/mm3 (150-375); Red Blood Count 4.41 M/mm3 (4.6-6.20); Red Cell Distribution Width 16.3 % (11.5-14.5); White Blood Count 11.3 K/mm3 (4.5-10.0)
[2023-08-04 10:05] LABS: Alanine Aminotransferase 31 U/L (6-50); Albumin Level 3.8 g/dL (3.5-5.1); Alkaline Phosphatase 175 U/L (38-126); Anion Gap 7 mmol/L (4-12); Aspartate Amino Transferase 33 U/L (17-59); Bilirubin,Total 0.4 mg/dL (0.2-1.3); Blood Urea Nitrogen 19 mg/dL (9-20); Calcium 9.2 mg/dL (8.4-10.2); Carbon Dioxide 27 mmol/L (22-30); Chloride 103 mmol/L (98-107); Estimated Glomerular Filt Rate 39; Glucose 103 mg/dL (65-110); Potassium 3.9 mmol/L (3.4-5.0); Sodium 137 mmol/L (137-145)
== END 2023-08-04 09:06 | disposition home or self-care (01) ==
LOC: ANHLAB 09:08
PROVIDERS: PCP Nurse Practitioner; Visit Provider Internal Medicine Hematology & Oncology
DX: C34.12 Malignant neoplasm of upper lobe, left bronchus or lung (principal)
CPT/HCPCS: 36415; 80053; 85025

== ENCOUNTER 2023-11-13 02:41 | Day surgery (SDC) | payer MEDICARE, SELFPAY ==
[2023-10-27 10:41] VITALS: BMI 36.6
[2023-11-13 08:05] VITALS: BP 135/79; PULSE 104; RESP 18; TEMP 36; O2SAT 98; BMI 33.2
[2023-11-13] MEDS: LACTATED RINGERS 1,000 ML 150 ML IV CONT (08:17)
[2023-11-13 08:20] LABS: Glucose Point of Care 88 mg/dl (65-105)
--- NOTE | 2023-11-13 08:36 | WPDANESEPPF ---
Anes - Initial Pre Proc Eval Procedure: Operation Date: 11/13/23 09:30 Proposed Procedures p Colonoscopy - Mike Stack MD Date/Time: 11/13/23 08:36 Surgeon: Mike Stack MD Pre Op Diagnosis: Personal hx. of colon polyps Patient Data Age: 78 Gender: M Height: 1.7 m Weight: 96.2 kg Last Vital Signs Temp 96.8 F L 11/13/23 08:05 Pulse 104 H 11/13/23 08:05 Resp 18 11/13/23 08:05 BP 135/79 11/13/23 08:05 Pulse Ox 98 11/13/23 08:05 O2 Del Method Nasal Cannula 11/13/23 08:05 O2 Flow Rate 2 11/13/23 08:05 Allergies Allergy/AdvReac Type Severity Reaction Status Date / Time Iodinated Contrast Media Allergy Severe Hives Verified 11/13/23 08:04 infliximab [From Remicade] AdvReac Intermediate Rash Verified 11/13/23 08:04 Home Medications Medication Instructions Recorded Confirmed Type hydrocodone 10 mg-acetaminophen 1 tablet PO Q6H PRN Pain 02/21/20 11/13/23 History 325 mg tablet tamsulosin 0.4 mg capsule 0.4 mg PO QHS 08/01/20 11/13/23 History blood-glucose meter (Accu-Chek #1 ea 08/04/20 11/13/23 Rx Guide Glucose Meter) lancets (Accu-Chek Multiclix #200 ea 08/04/20 11/13/23 Rx Lancet) blood sugar diagnostic (Accu-Chek #100 ea 11/06/20 11/13/23 Rx Guide test strips) aspirin 81 mg tablet,delayed 81 mg PO DAILY 06/25/22 11/13/23 History release (Aspir-) magnesium 250 mg tablet 400 mg PO DAILY 06/25/22 11/13/23 History budesonide 160 mcg-glycopyr 9 2 inh inhalation BID 07/25/22 11/13/23 History mcg-formot 4.8 mcg/actuation HFA inhaler (Breztri Aerosphere) metformin 500 mg tablet 1,000 mg PO DAILY #180 tabs 03/06/23 11/13/23 Rx albuterol sulfate 90 mcg/actuation 2 puff inhalation Q4-6H PRN 03/12/23 11/13/23 History aerosol inhaler Shortness Of Breath prednisone 2.5 mg tablet 2.5 mg PO TID 03/12/23 11/13/23 History azelastine 137 mcg (0.1 %) nasal 137 mcg (0.137 mL) intranasal Q12H 04/10/23 11/13/23 Rx spray #30 mL hyoscyamine sulfate 0.125 mg 0.125 mg PO QID PRN esophageal 04/10/23 11/13/23 Rx disintegrating tablet spasms #45 tabs omega [id number]-fish oil 1,000 mg 1 cap PO DAILY 04/10/23 11/13/23 History (120 mg-180 mg) capsule (Fish Oil) oxygen-air delivery systems 04/10/23 11/13/23 History famotidine 20 mg tablet See Rx Instructions .Route 05/23/23 11/13/23 Rx .COMPLEX #90 tabs fluticasone propionate 50 See Rx Instructions .Route 05/23/23 11/13/23 Rx mcg/actuation nasal .COMPLEX #48 grams spray,suspension trazodone 50 mg tablet See Rx Instructions .Route 05/23/23 11/13/23 Rx .COMPLEX #270 tabs hydroxychloroquine 200 mg tablet 200 mg PO DAILY 06/23/23 11/13/23 History diltiazem HCl 240 mg capsule,24 240 mg PO DAILY #90 caps 07/21/23 11/13/23 Rx hr,extended release omeprazole 40 mg capsule,delayed 40 mg PO DAILY #90 caps 09/03/23 11/13/23 Rx release pravastatin 20 mg tablet 20 mg PO HS #90 tabs 09/03/23 11/13/23 Rx triamterene 37.5 1 tablet PO QAM #90 tabs 09/03/23 11/13/23 Rx mg-hydrochlorothiazide 25 mg tablet celecoxib 200 mg capsule 200 mg PO DAILY 10/27/23 11/13/23 History Laboratory Tests 11/13/23 08:11 POC Capillary Glucose 88 mg/dl (65-105) Patient hx anesthesia problems: none Family hx anesthesia problems: none Results Review: All pre-operative results and documents have been reviewed as part of the pre-operative evaluation. [facility] Past Medical History Medical History Benign essential hypertension Benign prostatic hyperplasia with lower urinary tract symptoms Cataracts, bilateral Chronic low back pain Chronic obstructive pulmonary disease, unspecified COVID-19 Diverticulitis Diverticulosis Elevated LFTs Emphysema of lung Follicular lymphoma grade II, unspecified site Gastrointestinal ulcer GERD (gastroesophageal reflux disease) History of rectal polyps Hypercholesterolemia Influenza A Kidney stones Lung
--- NOTE | 2023-11-13 09:00 | PM.HPGS ---
History of Present Illness History of Present Illness Consent: Risks, benefits, and alternatives have been discussed and questions answered. Patient agrees to proceed with procedure. Chief complaint: Personal hx. of colon polyps Narrative: Dilan Weaver is a 78 year old male with colon polyps, brother with colon cancer. Last colonoscopy 2022 Review of Systems Review of Systems: All systems reviewed & are unremarkable except as noted in HPI and below PMFSH Past Medical History Medical History (Updated 11/13/23 @ 09:01 by Mike Stack MD) Benign essential hypertension Benign prostatic hyperplasia with lower urinary tract symptoms Cataracts, bilateral Chronic low back pain Chronic obstructive pulmonary disease, unspecified Colon polyp COVID-19 Diverticulitis Diverticulosis Elevated LFTs Emphysema of lung Follicular lymphoma grade II, unspecified site Gastrointestinal ulcer GERD (gastroesophageal reflux disease) History of rectal polyps Hypercholesterolemia Influenza A Kidney stones Lung cancer Lung nodule Mixed hyperlipidemia Obesity Obstructive sleep apnea (adult) (pediatric) Rheumatoid arthritis involving multiple sites Shingles Splenomegaly Surgical History Surgical History History of back surgery History of right knee joint replacement Hx of cataract surgery Hx of cholecystectomy Family History Family History Mother Family history of osteoarthritis Family history of congestive heart failure, Onset Age: 90 Family history of malignant neoplasm of breast in first degree relative Sibling Carcinoma of colon, Onset Age: 66 Family history of lupus erythematosus, Onset Age: 21 Family history of primary malignant neoplasm of liver Father Acute myocardial infarction Hypertension, Onset Age: 68 Family history of cardiovascular disease, Onset Age: 68 Social History Social History Smoking packs per day: 2 Smoking cigarettes per day: 40.0 Years smoked: 36 Smoking pack-years: 72.00 Smoking status: Former smoker Tobacco type: cigarettes Smoking end date: 04/07/86 Alcohol intake: never Alcohol use details: occasionally Substance use: never Substance use type: does not use Living arrangements: with family Gender identity (if verbalized by the patient): Male Sexual Orientation (if Verbalized by the Patient): Straight or Heterosexual Spiritual care concerns: No Agree to blood products: Yes Meds Home Medications and Allergies Home Medications Medication Instructions Recorded Confirmed Type hydrocodone 10 mg-acetaminophen 1 tablet PO Q6H PRN Pain 02/21/20 11/13/23 History 325 mg tablet tamsulosin 0.4 mg capsule 0.4 mg PO QHS 08/01/20 11/13/23 History blood-glucose meter (Accu-Chek #1 ea 08/04/20 11/13/23 Rx Guide Glucose Meter) lancets (Accu-Chek Multiclix #200 ea 08/04/20 11/13/23 Rx Lancet) blood sugar diagnostic (Accu-Chek #100 ea 11/06/20 11/13/23 Rx Guide test strips) aspirin 81 mg tablet,delayed 81 mg PO DAILY 06/25/22 11/13/23 History release (Aspir-) magnesium 250 mg tablet 400 mg PO DAILY 06/25/22 11/13/23 History budesonide 160 mcg-glycopyr 9 2 inh inhalation BID 07/25/22 11/13/23 History mcg-formot 4.8 mcg/actuation HFA inhaler (Breztri Aerosphere) metformin 500 mg tablet 1,000 mg PO DAILY #180 tabs 03/06/23 11/13/23 Rx albuterol sulfate 90 mcg/actuation 2 puff inhalation Q4-6H PRN 03/12/23 11/13/23 History aerosol inhaler Shortness Of Breath prednisone 2.5 mg tablet 2.5 mg PO TID 03/12/23 11/13/23 History azelastine 137 mcg (0.1 %) nasal 137 mcg (0.137 mL) intranasal Q12H 04/10/23 11/13/23 Rx spray #30 mL hyoscyamine sulfate 0.125 mg 0.125 mg PO QID PRN esophageal 04/10/23 11/13/23 Rx disintegrating tablet spasms #
[2023-11-13 09:20] VITALS: BP 101/56; PULSE 75; RESP 14; O2SAT 100
[2023-11-13 09:30] VITALS: BP 107/53; PULSE 74; RESP 19; O2SAT 100
[2023-11-13 09:40] VITALS: BP 126/74; PULSE 78; RESP 22; O2SAT 99
== END 2023-11-13 09:50 | disposition home or self-care (01) ==
PROVIDERS: PCP Nurse Practitioner; Visit Provider Internal Medicine Gastroenterology
PROC: 0DJD8ZZ Inspection of Lower Intestinal Tract, Via Natural or Artificial Opening Endoscopic (ICD-10-PCS; CPT 45378; principal; 2023-11-13 09:30)
DX: Z09 Encounter for follow-up examination after completed treatment for conditions other than malignant neoplasm (principal); D12.3 Benign neoplasm of transverse colon; K57.30 Diverticulosis of large intestine without perforation or abscess without bleeding; I10 Essential (primary) hypertension; J43.9 Emphysema, unspecified; K21.9 Gastro-esophageal reflux disease without esophagitis; E78.2 Mixed hyperlipidemia; G47.33 Obstructive sleep apnea (adult) (pediatric); N40.1 Benign prostatic hyperplasia with lower urinary tract symptoms; G89.29 Other chronic pain; M54.50 Low back pain, unspecified; M06.89 Other specified rheumatoid arthritis, multiple sites; E66.9 Obesity, unspecified; Z68.33 Body mass index [BMI] 33.0-33.9, adult; Z79.891 Long term (current) use of opiate analgesic; Z79.82 Long term (current) use of aspirin; Z79.51 Long term (current) use of inhaled steroids; Z79.84 Long term (current) use of oral hypoglycemic drugs; Z79.52 Long term (current) use of systemic steroids; Z98.890 Other specified postprocedural states; Z90.49 Acquired absence of other specified parts of digestive tract; Z98.1 Arthrodesis status; Z87.891 Personal history of nicotine dependence; Z85.118 Personal history of other malignant neoplasm of bronchus and lung; Z80.0 Family history of malignant neoplasm of digestive organs; Z80.3 Family history of malignant neoplasm of breast; Z82.49 Family history of ischemic heart disease and other diseases of the circulatory system
CPT/HCPCS: 45385; 82948; 88305; J2704; J7120

== ENCOUNTER 2024-02-11 08:48 | Outpatient (CLI) | payer MEDICARE, SELFPAY ==
--- NOTE | ~2024-02-11 | CT_ITS ---
Clinical Indication: Lung cancer CT Scan of the Chest, Abdomen, and Pelvis without Contrast: Technique: Contiguous sections were acquired throughout the chest, abdomen, and pelvis without IV con trast administration. Dose reduction technique was used on this scan by utilizing automated exposure control and iterative reconstruction technique. The dose-length product (DLP) was 1310.39 mGy-cm. Comparison: 08/04/2023 Findings: There is no evidence of any significant mediastinal, hilar or axillary lymphadenopathy. There are ext ensive atherosclerotic calcifications of the aorta and coronary arteries. There is no evidence of pleural or pericardial effusion. There is advanced emphysema. Stable somewhat bandlike irregular consolidation left upper lobe, most c ompatible with postradiation change. Mild peripheral chronic interstitial changes are noted, special the lung bases. The liver, spleen, pancreas, adrenals and right kidney are within normal limits. Cholecystectomy clip s are present. Punctate nonobstructing left renal stone noted. There are atherosclerotic calcificatio ns of the aorta. No lymphadenopathy. No bowel obstruction or bowel wall thickening. There is extensive colonic diverticulosis. Probable ar ea of fat necrosis near the distal transverse colon. Urinary bladder is unremarkable. No pelvic mass seen. No ascites. Impression: Stable posttreatment/post radiation change in the left upper lobe. No evidence for active malignancy or metastatic disease. Emphysema and chronic interstitial pulmonary disease, stable from prior exam. Reviewed, dictated and finalized at [facility]. [facility] Impression: Stable posttreatment/post radiation change in the left upper lobe. No evidence for active malignancy or metastatic disease. Emphysema and chronic interstitial pulmonary disease, stable from prior exam.
== END 2024-02-11 08:49 | disposition home or self-care (01) ==
PROVIDERS: PCP Nurse Practitioner; Visit Provider Internal Medicine Hematology & Oncology
DX: C34.12 Malignant neoplasm of upper lobe, left bronchus or lung (principal); J43.9 Emphysema, unspecified
CPT/HCPCS: 36415; 71250; 74176; 80053; 85025

== ENCOUNTER 2024-02-11 09:26 | Outpatient (CLI) | payer MEDICARE, SELFPAY ==
[2024-02-11 09:44] LABS: Basophils Percent Auto 0.4 % (0.2-1.2); Eosinophils Absolute Auto 0.2 K/mm3 (0-0.3); Eosinophils Percent Auto 2.3 % (0-4.4); Hematocrit 35.8 % (42.0-52.0); Hemoglobin 11.1 g/dL (14.0-18.0); Immature Granulocyte Absolute 0.08 K/mm3 (0.00-0.031); Immature Granulocyte Percent A 0.8 % (0-0.5); Lymphocytes Absolute Auto 1.18 K/mm3 (0.9-3.2); Lymphocytes Percent Auto 11.1 % (18.3-44.2); Mean Corpuscular Hemoglobin 24.9 pg (26-34); Mean Corpuscular Volume 80.4 fl (80-100); Mean Platelet Volume 9.8 fl (7.4-10.4); Monocytes Absolute Auto 0.9 K/mm3 (0.1-0.6); Monocytes Percent Auto 8.1 % (2.6-8.5); Neutrophils Absolute Auto 8.3 K/mm3 (1.3-6.7); Neutrophils Percent Auto 77.3 % (45.5-73.1); Platelet Count Result 183 k/mm3 (150-375); Red Blood Count 4.45 M/mm3 (4.6-6.20); Red Cell Distribution Width 16.5 % (11.5-14.5); White Blood Count 10.7 K/mm3 (4.5-10.0)
[2024-02-11 10:38] LABS: Alanine Aminotransferase 23 U/L (6-50); Albumin Level 3.6 g/dL (3.5-5.1); Alkaline Phosphatase 125 U/L (38-126); Anion Gap 10 mmol/L (4-12); Aspartate Amino Transferase 34 U/L (17-59); Bilirubin,Total 0.5 mg/dL (0.2-1.3); Blood Urea Nitrogen 15 mg/dL (9-20); Calcium 9.2 mg/dL (8.4-10.2); Carbon Dioxide 26 mmol/L (22-30); Chloride 100 mmol/L (98-107); Estimated Glomerular Filt Rate 49; Glucose 100 mg/dL (65-110); Potassium 3.6 mmol/L (3.4-5.0); Sodium 136 mmol/L (137-145)
== END 2024-02-11 09:27 | disposition home or self-care (01) ==
PROVIDERS: PCP Nurse Practitioner; Visit Provider Internal Medicine Hematology & Oncology
DX: C34.12 Malignant neoplasm of upper lobe, left bronchus or lung (principal)
CPT/HCPCS: 36415; 80053; 85025

== ENCOUNTER 2024-04-15 11:25 | Emergency (ER) | payer MEDICARE, SELFPAY ==
--- NOTE | ~2024-04-15 | XR_ITS ---
EXAMINATION: XR chest 1V portable DATE: 04/15/2024 11:45 INDICATION: Chest pain. TECHNIQUE: A single frontal view of the chest was obtained. COMPARISON: Chest single view 06/23/2023, chest CT 02/11/2024 FINDINGS: There are lucencies in the lungs, consistent with emphysema. There are mild chronic airspac e opacities in the mid and lower lung zones, worst in left midlung zone. No pleural effusion or pneum othorax. The heart size is normal. IMPRESSION: 1. Stable emphysema and chronic lung disease. Reviewed, dictated and finalized at location [facility]
[2024-04-15 11:30] VITALS: BP 149/80; PULSE 102; RESP 16; O2SAT 98
[2024-04-15 11:31] VITALS: BP 135/75; PULSE 101; PULSE 98; RESP 21; O2SAT 98; O2SAT 99
[2024-04-15 11:35] VITALS: BP 149/80; PULSE 98; RESP 18; TEMP 36.6; O2SAT 100
--- NOTE | 2024-04-15 11:35 | ECG_ITS ---
Test Date: 2024-04-15 11:18:29 Measurements Intervals [place] Rate: 162 P: 118 CT: 80 QRS: 87 QRSD: 142 T: 32 QT: 327 QTc: 538 Interpretive Statements SINUS TACHYCARDIA WITH SHORT CT INTERVAL RIGHT BUNDLE BRANCH BLOCK [120+ ms QRS DURATION, UPRIGHT V1, 40+ ms S IN I/aVL/V4/V5/V6] No previous ECG available for comparison Electronically Signed On 04-16-2024 16:15:55 TV NEWS DIRECTOR by Dean Al M.D.
[2024-04-15 11:52] LABS: Basophils Absolute Auto 0.03 K/mm3 (0.00-0.10); Basophils Percent Auto 0.3 % (0.0-1.0); Eosinophils Absolute Auto 0.22 K/mm3 (0.02-0.50); Eosinophils Percent Auto 2.3 % (1.0-6.0); Hematocrit 36.1 % (37.0-46.0); Hemoglobin 11.1 g/dL (12.4-15.3); Immature Granulocyte Absolute 0.07 K/mm3 (0.00-0.00); Immature Granulocyte Percent A 0.7 % (0.0-0.0); Lymphocytes Absolute Auto 1.38 K/mm3 (1.10-4.50); Lymphocytes Percent Auto 14.1 % (18.0-42.0); Mean Corpuscular HGB Conc 30.7 g/dL (32-36); Mean Corpuscular Hemoglobin 24.2 pg (27.0-31.0); Mean Corpuscular Volume 78.8 fL (78.0-102.0); Mean Platelet Volume 9.5 fl (8.7-11.0); Monocytes Absolute Auto 0.95 K/mm3 (0.10-0.90); Monocytes Percent Auto 9.7 % (2.0-11.0); Neutrophils Absolute Auto 7.12 K/mm3 (1.70-7.20); Neutrophils Percent Auto 72.9 % (50.0-70.0); Platelet Count Result 173 K/mm3 (150-420); Red Blood Count 4.58 M/mm3 (4.70-6.10); Red Cell Distribution Width 17.2 % (11.6-14.4); White Blood Count 9.8 K/mm3 (4.8-10.8)
[2024-04-15 12:09] VITALS: BP 110/60; PULSE 93; RESP 10; O2SAT 97
[2024-04-15 12:13] VITALS: BP 130/70; PULSE 88; RESP 22; O2SAT 97
[2024-04-15 12:13] LABS: Alanine Aminotransferase 31 U/L (16-63); Albumin Level 3.1 g/dL (3.4-5.0); Alkaline Phosphatase 138 U/L (46-116); Anion Gap 10 mmol/L (4-12); Aspartate Amino Transferase 20 U/L (15-37); Bilirubin,Total 0.4 mg/dL (0.00-1.00); Blood Urea Nitrogen 20 mg/dL (7-18); Calcium 9.3 mg/dL (8.5-10.1); Carbon Dioxide 28 mmol/L (21-32); Chloride 102 mmol/L (98-108); Estimated CRCL calculation 36 ml/min; Estimated Glomerular Filt Rate 39; Glucose 88 mg/dL (70-99); Lipase 38 U/L (16-77); NT Pro B Type Natriuretic Pept 56 pg/mL (0-450); Osmolality Calculated 291 mOsm/kg (285-295); Potassium 3.3 mmol/L (3.5-5.1); Sodium 140 mmol/L (136-145); Total Protein 6.5 g/dL (6.4-8.2); Troponin I 11.8 ng/L (0.00-60.4)
[2024-04-15 12:21] LABS: INR 1.1; Partial Thromboplastin Time 26.8 Sec (23.9-30.70); Prothrombin Time 11.8 Seconds (9.50-12.1)
--- NOTE | 2024-04-15 12:32 | ED_ITS ---
HPI - Chest Pain General Chief Complaint: Chest Pain Stated Complaint: SENT FROM CARDIAC REHAB Time Seen by Provider: 04/15/24 11:31 Source: patient Mode of arrival: ambulatory Limitations: no limitations History of Present Illness HPI narrative: this is a 78-year-old male with history of COPD was in pulmonary rehab and developed chest discomfort which is the same as his esophageal spasms that he occasionally gets. Patient has a history of esophageal spasm, but he was brought over from pulmonary rehab with elevated heart rate in the 160s. Patient states that when he gets these spasms his heart rate does increase. Patient while here in the emergency room felt like he was back to normal with a normal heart rate not having any chest pain no shortness of breath no abdominal pain no nausea vomiting no fever chills. MD complaint: chest discomfort Onset (ago): hour(s) Timing of current episode: episodic Prior episodes: Yes Onset: during rest Pain location: epigastric Pain radiation: none Severity: mild Related Data Home Medications ?Medication ?Instructions ?Recorded ?Confirmed ?Last Taken ?Type hydrocodone 10 mg-acetaminophen 1 tablet PO Q6H PRN Pain 02/21/20 01/29/24 Unknown History 325 mg tablet tamsulosin 0.4 mg capsule 0.4 mg PO QHS 08/01/20 01/29/24 Unknown History aspirin 81 mg tablet,delayed 81 mg PO DAILY 06/25/22 01/29/24 Unknown History release (Aspir-) magnesium 250 mg tablet 400 mg PO DAILY 06/25/22 01/29/24 Unknown History budesonide 160 mcg-glycopyr 9 2 inh inhalation BID 07/25/22 01/29/24 Unknown History mcg-formot 4.8 mcg/actuation HFA inhaler (Breztri Aerosphere) albuterol sulfate 90 mcg/actuation 2 puff inhalation Q4-6H PRN 03/12/23 01/29/24 Unknown History aerosol inhaler Shortness Of Breath omega 6-elu-kry-fish oil 1,000 mg 1 cap PO DAILY 04/10/23 01/29/24 Unknown History (120 mg-180 mg) capsule (Fish Oil) oxygen-air delivery systems 04/10/23 01/29/24 Unknown History hydroxychloroquine 200 mg tablet 200 mg PO DAILY 06/23/23 01/29/24 Unknown History celecoxib 200 mg capsule 200 mg PO DAILY 10/27/23 01/29/24 Unknown History prednisone 2.5 mg tablet 10 mg PO DAILY 01/29/24 01/29/24 Unknown History Allergies Allergy/AdvReac Type Severity Reaction Status Date / Time Iodinated Contrast Media Allergy Severe Hives Verified 01/29/24 07:18 infliximab (From Remicade) AdvReac Intermediate Rash Verified 01/29/24 07:18 Review of Systems 2 Review of Systems: All systems reviewed & are unremarkable except as noted in HPI and below [facility] Past Medical History Medical History Colon polyp Lung cancer Influenza A COVID-19 Shingles Kidney stones GERD (gastroesophageal reflux disease) History of rectal polyps Gastrointestinal ulcer Diverticulitis Diverticulosis Emphysema of lung Cataracts, bilateral Obesity Hypercholesterolemia Benign essential hypertension Benign prostatic hyperplasia with lower urinary tract symptoms Chronic low back pain Chronic obstructive pulmonary disease, unspecified Elevated LFTs Follicular lymphoma grade II, unspecified site Lung nodule Mixed hyperlipidemia Obstructive sleep apnea (adult) (pediatric) Rheumatoid arthritis involving multiple sites Splenomegaly Surgical History Surgical History Hx of cholecystectomy History of right knee joint replacement Hx of cataract surgery History of back surgery Family History Family History Mother Family history of osteoarthritis Family history of congestive heart failure, Onset Age: 90 Family history of malignant neoplasm of breast in first degree relative Sibling Carcinoma of colon, Onset Age: 66 Family history of lupus erythematosus, Onset Age: 21 Family history of primary malignant neoplasm of liver Father Acute myocardial infarction Hypertension, Onset Age: 68 Family history of cardiovascular disease, Onset Age: 68 Social History Social History Smoking packs per day: 2 Smoking cigarettes per day: 40.0 Years smoked: 36 Smoking pack-years: 72.00 Smoking status: Former smoker Tobacco type: cigarettes Second hand tobacco smoke exposure: Yes Smoking end date: 04/07/86 Alcohol intake: never Substance use: never Substance use type: does not use Do You Feel Safe in your Home?: Yes Lack of Transportation: No Lack of Food: Never True Current Housing: I Have Housing Concerned About Future Housing: No Difficulty Paying Gas/Electric Bills: No Difficulty Paying for Meds: No Currently Unemployed: No Education: High School Diploma/GED Living arrangements: with family Occupation/Education: retired 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 Gender identity (if verbalized by the patient): Male Sexual Orientation (if Verbalized by the Patient): Straight or Heterosexual Spiritual care concerns: No Agree to blood products: Yes Exam 2 Const: General: healthy appearing and no acute distress Nutritional Appearance: well nourished Orientation/consciousness: patient oriented x3 Limitations: no limitations Neck: Neck: normal visual inspection, no lymphadenopathy and no meningeal signs Chest: Chest palpation & inspection: normal inspection of the chest Resp: Effort & Inspection: normal respiratory effort Auscultation: clear to auscultation bilaterally Cardio: Rate: regular rate Rhythm: regular rhythm GI: GI Palp: Yes Soft to palpation Auscultation: normal bowel sounds : General: Yes bladder normal to palpation Neuro: General: patient oriented x3, moves all extremities, no meningeal signs and no focal motor deficits Extrem: General: normal to inspection Course Course Emergency Course: EKG performed in the emergency department shows that he has sinus rhythm with a right bundle-branch block with heart rate of 99 compared to 1 performed in cardiac rehab which shows sinus tach with a right bundle-branch block. Blood work performed and reviewed shows no significant abnormalities troponins negative. After reassessment patient is back to his baseline with a blood pressure 130/70 with heart rate of 88 O2 sats of 97% he is on 2L of oxygen at home. Vital Signs Vital signs: Vital Signs Pulse Rate 102 H 04/15/24 11:30 Respiratory Rate 16 04/15/24 11:30 Blood Pressure 149/80 H 04/15/24 11:30 Pulse Oximetry 98 04/15/24 11:30 Temperature 36.6 C 04/15/24 11:35 Pulse Rate 88 04/15/24 12:13 Respiratory Rate 22 H 04/15/24 12:13 Blood Pressure 130/70 04/15/24 12:13 Pulse Oximetry 97 04/15/24 12:13 Oxygen Delivery Room Air 04/15/24 11:35 Oxygen Flow Rate 2 04/15/24 11:31 MDM - Chest Pain Lab Data 04/15/24 11:48 04/15/24 11:48 Labs: Lab Results 01/09/25 Range/Units 11:48 WBC 9.8 (4.8-10.8) K/mm3 RBC 4.58 L (4.70-6.10) M/mm3 Hgb 11.1 L (12.4-15.3) g/dL Hct 36.1 L (37.0-46.0) % MCV 78.8 (78.0-102.0) fL MCH 24.2 L (27.0-31.0) pg MCHC 30.7 L (32-36) g/dL RDW 17.2 H (11.6-14.4) % Plt Count 173 (150-420) K/mm3 MPV 9.5 (8.7-11.0) fl Immature Gran % (Auto) 0.7 H (0.0-0.0) % Neut % (Auto) 72.9 H (50.0-70.0) % Lymph % (Auto) 14.1 L (18.0-42.0) % [place] % (Auto) 9.7 (2.0-11.0) % Eos % (Auto) 2.3 (1.0-6.0) % Baso % (Auto) 0.3 (0.0-1.0) % Lymph # (Auto) 1.38 (1.10-4.50) K/mm3 [place] # (Auto) 0.95 H (0.10-0.90) K/mm3 Eos # (Auto) 0.22 (0.02-0.50) K/mm3 Baso # (Auto) 0.03 (0.00-0.10) K/mm3 Abs Immat Gran (auto) 0.07 H (0.00-0.00) K/mm3 Absolute Neuts (auto) 7.12 (1.70-7.20) K/mm3 Absolute Nucleated RBC 0.00 (0.00-0.00) K/mm3 Nucleated RBC % 0.0 (0-0.0) % PT 11.8 (9.50-12.1) Seconds INR 1.1 APTT 26.8 (23.9-30.70) Sec Sodium 140 (136-145) mmol/L Potassium 3.3 L (3.5-5.1) mmol/L Chloride 102 (98-108) mmol/L Carbon Dioxide 28 (21-32) mmol/L Anion Gap 10 (4-12) mmol/L BUN 20 H (7-18) mg/dL Creatinine 1.69 H (0.70-1.30) mg/dL Estim Creat Clear Calc 36 ml/min Estimated GFR 39 L (59 - ) Glucose 88 (70-99) mg/dL Calculated Osmolality 291 (285-295) mOsm/kg Calcium 9.3 (8.5-10.1) mg/dL Total Bilirubin 0.4 (0.00-1.00) mg/dL AST 20 (15-37) U/L ALT 31 (16-63) U/L Alkaline Phosphatase 138 H (46-116) U/L Troponin I 11.8 (0.00-60.4) ng/L NT-Pro-B Natriuret Pep 56 (0-450) pg/mL Total Protein 6.5 (6.4-8.2) g/dL Albumin 3.1 L (3.4-5.0) g/dL Lipase 38 (16-77) U/L Critical Care Time Critical Care Time Critical Care Time: No Discharge Plan Discharge Clinical Impression: Esophageal spasm Patient Disposition: Home, Self-Care Condition: Stable Instructions: Antibiotic Form, Esophageal Spasm (ED) Additional Instructions: advised patient to follow up with primary within 1 week for further evaluation treatment. Patient Language: Upper Sorbian Prescriptions: No Action hydrocodone-acetaminophen 10-325 mg tablet 1 tablet PO Q6H PRN (Reason: Pain) tamsulosin 0.4 mg capsule 0.4 mg PO QHS aspirin [Aspir-81] 81 mg tablet,delayed release (DR/EC) 81 mg PO DAILY omega 8-naq-uej-fish oil [Fish Oil] 1,000 mg (120 mg-180 mg) capsule 1 cap PO DAILY (DME) oxygen-air delivery systems Device See Rx Instructions .Route Patient Comments: pt states he is on 2 liters every night. Rx Instructions: As directed hyoscyamine sulfate 0.125 mg tablet,disintegrating 0.125 mg PO QID PRN (Reason: esophageal spasms) Qty: 45 0RF azelastine 137 mcg (0.1 %) aerosol,spray 137 mcg intranasal Q12H Qty: 30 5RF Rx Instructions: administer into each nostril hydroxychloroquine 200 mg tablet 200 mg PO DAILY magnesium 250 mg tablet 400 mg PO DAILY Breztri Aerosphere 160-9-4.8 mcg/actuation Hfa Aerosol Inhaler 2 inh INHALATION BID albuterol sulfate 90 mcg/actuation HFA aerosol inhaler 2 puff INHALATION Q4-6H PRN (Reason: Shortness Of Breath) prednisone 2.5 mg tablet 10 mg PO DAILY Rx Instructions: TAKE 1 TABLET THREE TIMES DAILY celecoxib 200 mg capsule 200 mg PO DAILY (DME) blood-glucose meter [Accu-Chek Guide Glucose Meter] Misc See Rx Instructions .Route Qty: 1 0RF Rx Instructions: test 2 times a day. (DME) lancets [Accu-Chek Multiclix Lancet] Misc See Rx Instructions .Route Qty: 200 1RF Rx Instructions: test 2 times a day (DME) Accu-Chek Guide test strips Strip See Rx Instructions .Route Qty: 100 2RF Rx Instructions: test 2 time a day fluticasone propionate 50 mcg/actuation spray,suspension See Rx Instructions .ROUTE .COMPLEX Qty: 48 3RF Dose Instruction: USE 2 SPRAYS IN EACH NOSTRIL DAILY NEEDED FOR CONGESTION Rx Instructions: USE 2 SPRAYS IN EACH NOSTRIL DAILY NEEDED FOR CONGESTION trazodone 50 mg tablet See Rx Instructions .ROUTE .COMPLEX Qty: 270 1RF Dose Instruction: TAKE 3 TABLETS AT BEDTIME NEEDED FOR SLEEP Rx Instructions: TAKE 3 TABLETS AT BEDTIME NEEDED FOR SLEEP metformin 500 mg tablet See Rx Instructions .ROUTE .COMPLEX Qty: 180 3RF Dose Instruction: TAKE 2 TABLETS EVERY DAY Rx Instructions: TAKE 2 TABLETS EVERY DAY diltiazem HCl 240 mg capsule,extended release 24 hr 240 mg PO DAILY Qty: 90 1RF famotidine 20 mg tablet See Rx Instructions .ROUTE .COMPLEX Qty: 90 1RF Dose Instruction: TAKE 1 TABLET EVERY DAY Rx Instructions: TAKE 1 TABLET EVERY DAY pravastatin 20 mg tablet 20 mg PO HS Qty: 90 1RF Rx Instructions: TAKE 1 TABLET AT BEDTIME triamterene-hydrochlorothiazid 37.5-25 mg tablet 1 tablet PO QAM Qty: 90 1RF omeprazole 40 mg capsule,delayed release(DR/EC) 40 mg PO DAILY Qty: 90 1RF Rx Instructions: TAKE 1 CAPSULE EVERY DAY Follow-up/Referrals: Valeriy Marte APRN [Primary Care Provider] - Time of Disposition: 12:38
--- NOTE | 2024-04-15 12:36 | PC.NURSE ---
pt resting on strentcher in room with no complaints at this time
[2024-04-15 12:47] VITALS: BP 113/65; PULSE 84; RESP 18; TEMP 36.6; O2SAT 97
== END 2024-04-15 12:48 | disposition home or self-care (01) ==
PROVIDERS: Emergency Provider Emergency Medicine; PCP Nurse Practitioner
DX: K22.4 Dyskinesia of esophagus (principal); J44.9 Chronic obstructive pulmonary disease, unspecified; Z79.51 Long term (current) use of inhaled steroids; Z79.82 Long term (current) use of aspirin; Z87.891 Personal history of nicotine dependence; Z79.84 Long term (current) use of oral hypoglycemic drugs; Z99.81 Dependence on supplemental oxygen
CPT/HCPCS: 36415; 71045; 80053; 83690; 83880; 84484; 85025; 85610; 85730; 93005; 99284

== ENCOUNTER 2024-05-11 11:00 | Outpatient (RCR) | payer MEDICARE, SELFPAY ==
[2024-03-15 15:13] VITALS: BP 119/58; PULSE 90; RESP 16; O2SAT 95; BMI 33.5
--- NOTE | 2024-04-15 11:00 | PCCPR ---
Patient arrived for pulmonary rehab session c/o esophageal spasms that won't let up this morning. Patient is set up with new GI doctor however appointment is not for some time. Patient was placed on telemetry and noted resting HR 120's, pt states he can feel his heart racing when he has these spasms. Assisted patient with oxygen source switch from portable concentrator to e-tank. Assessed B/P 137/80, SpO2 97%. 11:10 noted HR now in 140's. STAT EKG ordered. 11:[address] Mercedes's office and message left with answering service updating on current status and plan to send to ER. 11:18 RT in rehab gym performing EKG. HR now 160's, and patient now c/o sharp pain to left chest. Pt mildly diaphoretic. Pt agreeable to be seen in ER. 11:25 transported to ER via w/c w/all belongings. accompanying. Report given to receiving RN and Dr. Manning along with medical history and face sheet.
--- NOTE | 2024-04-15 11:10 | ECG_ITS ---
Test Date: 2024-04-15 11:53:12 Measurements Intervals [place] Rate: 99 P: -24 SC: 161 QRS: 74 QRSD: 127 T: 48 QT: 379 QTc: 488 Interpretive Statements SINUS RHYTHM RIGHT BUNDLE BRANCH BLOCK [120+ ms QRS DURATION, UPRIGHT V1, 40+ ms S IN I/aVL/V4/V5/V6] COMPARED TO PREVIOUS EKG DATED 04/15/2024: SINUS RHYTHM NOW PRESENT Electronically Signed On 04-16-2024 16:16:29 [employer] by Dean Al M.D.
--- NOTE | 2024-05-13 15:45 | PCCPR ---
Pt called today to resign from pulmonary rehab program d/t progressive pain & discomfort secondary to rheumatoid arthritis. Pt reports that the exercise tends to exacerbate his symptoms. Early discharge notification sent to referring MD and PCP.
== END 2024-05-13 15:49 | disposition home or self-care (01) ==
PROVIDERS: PCP Nurse Practitioner; Visit Provider Internal Medicine Pulmonary Disease
DX: J44.9 Chronic obstructive pulmonary disease, unspecified (principal)
CPT/HCPCS: 93005; G0239

== ENCOUNTER 2024-07-15 14:22 | Inpatient (IN) | payer MEDICARE, SELFPAY ==
[2024-07-15] VITALS (8 sets, daily range): BP systolic 104–139; BP diastolic 37–64; PULSE 63–113; RESP 16–20; TEMP 36.4–36.6; O2SAT 96–98; BMI 32.3
--- NOTE | ~2024-07-15 | CT_ITS ---
CT abdomen pelvis wo con Ordering provider: Segun Correia MD History: 78 years Male with . LLQ pain, N/V/D . Comparison: February 11, 2024 Technique: CT abdomen and pelvis without IV and without oral contrast. Automated exposure control and iterative reconstruction technique were employed. The dose-length product was 1084.91 mGy-cm. Findings: VISUALIZED LOWER CHEST: Dependent atelectatic changes. Underlying fibrotic changes. UPPER ABDOMINAL ORGANS: Liver: Normal. Gallbladder: Status post cholecystectomy. CBD is dilated measuring 1.1 cm. Spleen: Slightly enlarged. Stomach/duodenum: Diverticulum in the third part of the duodenum. Pancreas: Normal. Adrenals: Normal. Kidneys: Normal. PELVIC ORGANS: The bladder shows slightly thickened wall. Evaluation for cystitis is advised. BOWEL AND MESENTERY: Colon: Mild diverticulosis without diverticulitis. Normal appendix. Small Bowel: Normal. No obstruction. Peritoneum/mesentery: No free air or free fluid. No mesenteric lymphadenopathy. RETROPERITONEUM: Moderate atheromatous disease of the abdominal aorta. No retroperitoneal lymphaden opathy. MUSCULOSKELETAL: Superficial soft tissues: The superficial soft tissues are normal. Bones: Age appropriate degenerative changes of the spine. 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 No evidence of appendicitis, diverticulitis or intestinal obstruction. 2. Slightly thickened wall of the urinary bladder. Evaluation for cystitis advised Reviewed, dictated and finalized at location A. IMPRESSION: 1. No evidence of appendicitis, diverticulitis or intestinal obstruction. 2. Slightly thickened wall of the urinary bladder. Evaluation for cystitis adv ised
--- NOTE | ~2024-07-15 | XR_ITS ---
XR chest 2V Ordering provider: Segun Correia MD History: 78 years Male with . weakness . Comparison: April 15, 2024 FINDINGS: MEDIASTINUM: The cardiac silhouette is moderately enlarged. LUNGS: No effusions or pneumothorax. Minimal opacification the left lung base which may indicate atel ectasis versus pneumonia. Opacity seen in the left mid zone may be fluid in the fissure versus subseg mental atelectasis. Follow-up advised. OTHER: No free air under the diaphragm. IMPRESSION: Left basilar atelectasis versus pneumonia. Left midzone subsegmental atelectasis versus fluid in a fissure. Follow-up advised. Reviewed, dictated and finalized at location A. IMPRESSION: Left basilar atelectasis versus pneumonia. Left midzone subsegmental atelectasis versus fluid in a fissure. Follow-up advi sed.
--- OUTSIDE RECORDS SUMMARY | 2024-07-15 15:01 | XMS_ITS | Clinical Summary ---
Author Organization [facility] Address [address] [place] [address] Care Team Providers Care Marine Painter Name Role Phone Zia Mercedes MD Unavailable [phone] Arpit patton MD PhD Unavailable [phone] Zia Mercedes MD Unavailable [phone] Harvey Alex MD Unavailable [phone] Dre Zavaleta DO Primary Care Provider [phone] Allergies Active Allergy Reactions Criticality Noted Date Comments Infliximab Rash Medium Iodinated Contrast Media Itching Low Iodine Itching Low Medications pravastatin (PRAVACHOL) 20 mg tabletIndicatio ns:hyperlipidem ia Take 1 tablet (20 mg total) by mouth nightly Active omeprazole (PriLOSEC) 40 mg capsule Take 20 mg by mouth daily Active albuterol (PROVENTIL,VENT JERALD) 2.5 mg /3 mL (0.083 %) nebulizer solution Take 3 mL (2.5 mg total) by nebulization every 4 (four) hours as needed Active albuterol HFA (PROVENTIL HFA,VENTOLIN HFA) 90 mcg/actuation inhaler Inhale 2 puffs every 6 (six) hours as needed Active aspirin 81 mg enteric coated tabletIndicatio ns:prevention of thrombosis Take 1 tablet (81 mg total) by mouth daily Active traZODone (DESYREL) 100 mg tabletIndicatio ns:insomnia associated with depression Take 1 tablet (100 mg total) by mouth nightly Active hydrOXYchloroQU INE (PLAQUENIL) 200 mg tabletIndicatio ns:Rheumatoid Arthritis Take 1 tablet (200 mg total) by mouth 2 (two) times a day Active fluticasone propionate (FLONASE) 50 mcg/actuation nasal sprayIndication s:Chronic Non-Allergic Rhinitis Administer 2 sprays into each nostril nightly Active HYDROcodone-mary taminophen (NORCO) 10-325 mg per tabletIndicatio ns:Pain Take 1 tablet by mouth every 6 (six) hours as needed for pain Active magnesium gluconate 200 mg tabletIndicatio ns:hypomagnesem ia Take 2 tablets (400 mg total) by mouth 2 (two) times a day Active tamsulosin (FLOMAX) 0.4 mg extended release capsuleIndicati ons:benign prostatic hyperplasia with lower urinary tract sx Take 1 capsule (0.4 mg total) by mouth nightly Active omega-3 fatty acids 1,000 mg capsule Take 1,000 mg by mouth 2 (two) times a day Active celecoxib (CeleBREX) 200 mg capsule Take 200 mg by mouth daily Active predniSONE (DELTASONE) 10 mg tablet Take 1 tablet PO daily x 5 days, then take 0.5 tablet PO daily 10 tablet 1 Active Additional Information Patient taking differently: 2.5 mg Daily, Take 1 tablet PO daily x 5 days, then take 0.5 tablet PO daily, Reported on 03/05/2023 metFORMIN (GLUCOPHAGE) 500 mg tablet Take 1 tablet (500 mg total) by mouth daily with breakfast 30 tablet 1 Active dilTIAZem CD (CARDIZEM CD,DILACOR XR) 240 mg 24 hr capsuleIndicati ons:hypertensio n Take 1 capsule (240 mg total) by mouth daily 30 capsule 1 Active triamterene-hyd roCHLOROthiazid e (triamterene-hy droCHLOROthiazi de) 37.5-25 mg per tablet/capsule Take 1 tablet/capsule by mouth daily Active budesonide/glyc opyr/formoterol (BREZTRI AEROSPHERE INHAL) Inhale Active doxycycline 100 mg tablet Take 1 tablet/capsule (100 mg total) by mouth daily 3 Active aluminum-magnes ium hydroxide suspension 200-200 mg/5 mL Take 10 mL by mouth as needed for heartburn 355 mL 4 Active lidocaine viscous (XYLOCAINE) 2 % solution Take 10 mL by mouth 3 (three) times a day as needed (for spasm) 100 mL 4 Active famotidine (PEPCID) 20 mg tablet Take 1 tablet (20 mg total) by mouth 2 (two) times a day 30 tablet 4 01/14/20 25 Active guaiFENesin (ROBITUSSIN) syrup 100 mg/5 mL Take 10 mL (200 mg total) by mouth 4 (four) times a day as needed for cough or congestion 60 mL 4 Active benzonatate (TESSALON) 100 mg capsuleIndicati ons:Cough Take 1 capsule (100 mg total) by mouth 3 (three) times a day as needed for cough 21 capsule 4 Active Active Problems Problem Noted Date Diagnosed Date Other chest pain 03/05/2023 Malignant neoplasm of upper lobe, left bronchus or lung 10/04/2021 Cancer Staging:Clinical stage from 10/04/2021:Stage IA2(cT1b, cN0, cM0) - Signed by Arpit Han MD PhD on 10/04/2021 PANTERA (acute kidney injury) 08/09/2021 Assessment & Plan (08/09/2021 1:56 PM CDT): Improving. Most likely prerenal due to poor p.o. intake. Baseline creatinine of about 0.9 a year ago. - continue to hold Celebrex and other nephrotoxic agents - continue with IVF - continue to monitor Assessment & Plan (08/09/2021 1:35 AM CDT): Most likely prerenal due to poor p.o. intake. Baseline creatinine of about 0.9 a year ago. Holding Celebrex and all nephrotoxins. Continue with fluids. Continue to monitor. Type 2 diabetes mellitus wit hout complication, without long-term current use of insulin 08/09/2021 Assessment & Plan (08/09/2021 1:45 PM CDT): Patient on metformin at home. Will monitor on sliding scale. Assessment & Plan (08/09/2021 1:32 AM CDT): Patient on metformin at home. Will monitor on sliding scale Influenza A 08/08/2021 Assessment & Plan (08/09/2021 1:54 PM CDT): Patient had positive sick contacts. Tamiflu started as patient is immune compromised and hospitalized despite symptoms >48hours. Day 2/5 of Tamiflu today. - continue supportive care - plaquenil held due to risk of QT prolongation - Mucinex DM and Tessalon perles added for cough Assessment & Plan (08/09/2021 1:34 AM CDT): Patient had positive sick contacts. Will start Tamiflu as patient is immune compromised and hospitalized despite it being day 3 of symptoms. Continue supportive care. Hold Plaquenil due to risk of QT prolongation. Acute on chronic respiratory failure with hypoxi a ([facility]) 06/04/2020 Assessment & Plan (08/09/2021 1:50 PM CDT): Resolved. Patient stable on room air. - supplemental oxygen as needed Assessment & Plan (08/09/2021 1:36 AM CDT): Patient uses oxygen p.r.n. at home 1 L however has had to increase it to 2 L in the last few days. SpO2 has been as low as 88%. Continue supplemental oxygen and wean as tolerated Elevated LFTs 06/04/2020 Assessment & Plan (06/04/2020 6:00 PM HOSPITAL COORDINATOR): Mild elevation of AST and ALT most likely due to acute infection. Will monitor while on remdesivir. Respiratory alkalosis 06/04/2020 Assessment & Plan (06/04/2020 6:01 PM HOSPITAL COORDINATOR): Due to hyperventilation from hypoxia on admission. Monitor respiratory function with supplemental oxygen. Chronic obstructive pulmonar y disease with acute exacerbation ([facility]) 06/04/2020 Assessment & Plan (08/09/2021 1:52 PM CDT): Patient on prednisone, symbicort, and albuterol prn at home. - continue home meds - Mucinex DM and Tessalon perles added for cough Assessment & Plan (08/09/2021 1:35 AM CDT): Continue breathing treatments Assessment & Plan (06/04/2020 6:02 PM HOSPITAL COORDINATOR): Mild COPD exacerbation due to COVID-19, breath sounds diminished with mild end expiratory wheezing and a cough productive of small amounts of yellow sputum. Continue steroids for COVID-19 along with home Symbicort and albuterol p.r.n. COVID-19 05/29/2020 Assessment & Plan (06/04/2020 6:04 PM HOSPITAL COORDINATOR): Shortness of breath worsened since initial diagnosis and he is now requiring supplemental oxygen (SpO2 measured at 87% on arrival to the floor while on room air). Diagnosed 05/28/2020, will require 20 day isolation to be completed on 06/17/2020 because of severe disease. No acute cardiopulmonary disease on chest x-ray per my interpretation. Received 3 days of remdesivir during his last admission, but symptoms have worsened since then so will restart a 5 day course. Continue dexamethasone started in the ED. Continue supplemental O2 and wean as tolerated. Elevated alkaline phosphatase level 05/29/2020 Elevated d-dimer 05/29/2020 Assessment & Plan (06/04/2020 5:59 PM HOSPITAL COORDINATOR): Unable to obtain CTA chest because of allergy to IV contrast, but symptoms are not suggestive of acute the and D-dimer is very slightly above the threshold for normal. Will treat with Lovenox at half therapeutic dose because of COVID-19. Rheumatoid arthritis involvi ng multiple sites with positive rheumatoid factor ([facility]) 05/29/2020 Assessment & Plan (08/09/2021 1:49 PM CDT): Holding Plaquenil and Celebrex. Continue prednisone daily. Assessment & Plan (08/09/2021 1:33 AM CDT): Holding Plaquenil. Continue prednisone daily. Assessment & Plan (06/04/2020 5:57 PM HOSPITAL COORDINATOR): Continue home RA regimen, will need to bring in home etanercept. Immunocompromised state 05/29/2020 Class 2 severe obesity due t o excess calories with serious comorbidity in adult 05/29/2020 Lumbar herniated disc 03/03/2018 Obstructive sleep apnea 03/03/2018 Assessment & Plan (08/09/2021 1:47 PM CDT): NPPV initially ordered. to bring home CPAP from home today. Assessment & Plan (08/09/2021 1:33 AM CDT): NPPV was ordered Assessment & Plan (06/04/2020 5:58 PM HOSPITAL COORDINATOR): Uses CPAP at home, but does not want to use the hospital unit as it is too loud and he cannot sleep. When told that he could have his home unit brought in he declined and said that he does not really need it. Dysuria 03/03/2018 Benign prostatic hyperplasia (BPH) with straining on urination 03/03/2018 Assessment & Plan (08/09/2021 1:47 PM CDT): Continue Flomax. Assessment & Plan (08/09/2021 1:35 AM CDT): Continue Flomax Essential hypertension 03/03/2018 Assessment & Plan (08/09/2021 1:48 PM CDT): Continue diltiazem with hold parameters. Home med lasix not started due to nephrotoxicity. Assessment & Plan (08/09/2021 1:34 AM CDT): Continue diltiazem with hold parameters Simple chronic bronchitis 03/03/2018 Low back pain radiating to right leg 01/13/2018 DDD (degenerative disc disea se), lumbar Rt paracentral L4-5 disc protrusion 01/13/2018 Acute cystitis with hematuria Dehydration Resolved Problems Problem Noted Date Diagnosed Date Resolved Date Lactic acidosis 08/09/2021 08/09/2021 Assessment & Plan (08/09/2021 1:33 AM CDT): Persistent. Continue IV fluids Immunizations Immunization Administration Dates Next Due Influenza, Unspecified 12/07/2019 Surgical History Surgery Date Site/Laterality Comments LITHOTRIPSY CHOLECYSTECTOMY JOINT REPLACEMENT left knee EYE SURGERY Bilateral cataract BLEPHAROPLASTY Bilateral MUSCLE REPAIR Left Quadricep MICRODISCECTOMY 03/02/2018 BACK SURGERY Medical History Medical History Date Comments COPD (chronic obstructive pulmonary disease) (HC C) GERD (gastroesophageal reflux disease) Shingles X 2 Staph infection right thigh Kidney stones Esophageal spasm Pneumonia 2013 Arthritis rheumatoid Hypertension Emphysema of lung (HCC) Sleep apnea Hyperlipidemia Osteoarthritis Lymphoma (HCC) monitored Lung nodule Pleurisy BPH (benign prostatic hyperplasia) Type 2 diabetes mellitus (HCC) Chest pain Family History Medical History Relation Name Comments Cancer Brother Heart attack Father Arthritis Mother Cancer Sister Relation Name Status Comments Brother lymphoma Father Mother Sister Social History Tobacco Use Types Packs/Day Years Used Date Smoking Tobacco: Former Cigarettes Q uit: 02/19/1998 Smokeless Tobacco: Never Tobacco Cessation:Counseling Given: Not Answered Alcohol Use Standard Drinks/Week Comments Yes 0 (1 standard drink = 0.6 oz pur e alcohol) rarely - almost never AUDIT-C Answer Date Recorded Q1: How often do you have a drink containing alc ohol? Monthly or less 08/08/2021 Q2: How many drinks containi ng alcohol do you have on a typical day when you are drinking? 1 or 2 08/08/2021 Q3: How often do you have si x or more drinks on one occasion? Never 08/08/2021 Overall Financial Resource Strain (CARDIA) Answe r Date Recorded How hard is it for you to pa y for the very basics like food, housing, medical care, and heating? Not hard at all 06/09/2020 PHQ-2 Answer Date Recorded PHQ-2 Total Score (If total score is 3 or more points, staff should administer the PHQ-9) 5 06/06/2020 Personal Safety Answer Date Recorded Have you ever been in or are you currently in a harmful physical or emotional relationship or is someone making you feel afraid or unsafe? Denies 03/03/2024 Sex and Gender Information Value Date Recorded Sex Assigned at Not on file Legal Sex Male 1:51 AM HOSPITAL COORDINATOR Gender Identity Not on file Sexual Orientation Not on file Obstetrics History Last Filed Vital Signs Vital Sign Reading Time Taken Comments Blood Pressure 122/73 03/03/2024 12:45 PM HOSPITAL COORDINATOR Pulse 94 03/03/2024 12:45 PM HOSPITAL COORDINATOR Temperature 37.6 C (99.7 F) 03/03/2024 6:46 AM HOSPITAL COORDINATOR Respiratory Rate 16 03/03/2024 12:45 PM HOSPITAL COORDINATOR Oxygen Saturation 95% 03/03/2024 12:45 PM HOSPITAL COORDINATOR Inhaled Oxygen Concentration - - Weight 97.1 kg (214 lb) 03/03/2024 6:46 AM HOSPITAL COORDINATOR Height 170.2 cm (5' 7 ) 03/03/2024 6:46 AM HOSPITAL COORDINATOR Body Mass Index 33.52 03/03/2024 6:46 AM HOSPITAL COORDINATOR Plan of Treatment Health Maintenance Due Date Last Done Comments Albumin Creatinine Ratio, Urine 1944 Dilated Eye Exam 1944 Foot Exam 1944 Lipid Panel 1944 DTaP/Tdap/Td Vaccine (1 - Tdap) 08/04/1955 Hepatitis B Screening 1962 Pneumococcal vaccine 65+ (1 of 2 - PCV) 08/04/1963 Zoster Vaccine (1 of 2) 08/04/1963 Well Visit 65+ 2009 Hemoglobin A1C 12/13/2020 06/12/2020, 12/23/2018 Depression Screening 06/04/2021 06/04/2020, 01/13/2018, 01/13/2018 Fall Risk Assessment 08/29/2022 08/29/2021 Influenza Vaccine (#1) 2023 12/07/2019 eGFR 03/03/2025 03/03/2024, 12/2023, 03/16/2023, Additional history exists Hepatitis C Screening Completed 06/19/2020 Abdominal Aortic Aneurysm (A AA) Screen Completed 01/21/2023, 07/15/2022, 06/27/2017 Goals Goal Patient Goal Type Associated Problems Recent Progress Patient-Stated? Author [facility] No Estelita Ornelas, RN Note: Pt would like to complete ADLs, ride motorcycle with minimal pain. Medical Devices Implanted Type Area Shank Pinner Device Identifier Shelf Expiration Date Model / Serial / Lot Other-See Comments Other - see comments Mode roe: Knee Description:R. Total knee- 2 020 L. Total Knee-2015 Procedures Procedure Name Priority Date/Time Associated Diagnosis Comments EGFR STAT 03/03/2024 7:[address] CHEST ABDOMEN PELVIS WO CONTRAST Schedule Routine, Read Routine (OP Routine) 01/21/2023 11:07 AM CDT HEPATITIS PANEL, ACUTE Routine 06/19/2020 8:11 PM CDT HEMOGLOBIN A1C Add-On 06/12/2020 11:07 AM HOSPITAL COORDINATOR from Last 3 Months or Most Recently Relevant to Health Maintenance Results * (ABNORMAL) eGFR (03/03/2024 7:02 AM HOSPITAL COORDINATOR) eGFR 47(L) >=60 mL/min/1. 73 m2 Comment: Interpretive Data Reference Interval Normal >/= 90 mL/min/1.73m2 Mildly decreased* 60 - 89 mL/min/1.73m2 Mildly to moderately decreased 45 - 59 mL/min/1.73m2 Moderately to severely decreased 30 - 44 mL/min/1.73m2 Severely decreased 15 - 29 mL/min/1.73m2 Kidney Failure < 15 mL/min/1.73m2 *Relative to young adult level Estimated glomerular filtration rate is determined by the 2020 CKD-EPI equation recommended by the National Kidney Foundation (A Unifying Approach to GFR Estimation: Recommendations of the NKF-ASK Task Force on Reassessing the Inclusion of Race in Diagnosing Kidney Disease, EPHRAIMSFabi 2020). The CKD-EPI equation should not be used for patients with unstable renal function and has not been validated in children and those over 70. Current interpretive data was last reviewed 2021. Blood 03/03/2024 7:02 AM HOSPITAL COORDINATOR 03/03/2024 7:06 AM HOSPITAL COORDINATOR Deandre Vasquez DO LAB BLOOD ORDERABLES Final Res ult Performing Organization Address City/[facility]/ZIP Co de Phone Number [address] [address] [address] [place], [place] [id number] * CT Chest Abdomen Pelvis WO Contrast (01/21/2023 11:07 AM CDT) Anatomical Region Laterality Modality Body N/A Computed Tomogra phy Arpit Han MD PhD IMG CT PROCEDURES Prudence l Result * Hepatitis panel, acute (06/19/2020 8:11 PM CDT) Hep A IgM Nonreactive Nonreactive [facility] Comment: Interpretive Data: If Hep A IgM Ab is reported as Equivocal, a new sample should be drawn in two weeks for testing. Current interpretive data was last revised on 19. Hep B core IgM Nonreactive Nonreactive [facility] Comment: Interpretive Data If HepB Core IgM Ab is reported as Equivocal, a new sample should be drawn in two weeks for testing. Current interpretive data was last revised on 19. Hep C Ab Nonreactive Nonreactive [facility] Comment: Interpretive Data Nonreactive: Antibodies to HCV not detected. Does NOT exclude the possibility of recent exposure to HCV. Equivocal: Equivocal for HCV antibodies. Supplemental molecular testing will be automatically performed to determine infection status in accordance with current CDC screening recommendations. Reactive: Positive for HCV antibodies. This may represent current or past HCV infection. Supplemental molecular testing will be automatically performed to determine current infection status in accordance with current CDC screening recommendations. Interpretive data was last revised on 2019. HepBsAg Nonreactive Nonreactive [facility] Blood specimen (specimen) 06/19/2020 8:11 PM CDT 06/19/2020 8:15 PM CDT Andres Zuñiga MD LAB MICROBIOLOGY - GENE RAL ORDERABLES Final Result Performing Organization Address City/[facility]/ZIP Co de Phone Number [address] [address] [address] [place] [address] * (ABNORMAL) Hemoglobin A1c (06/12/2020 11:07 AM HOSPITAL COORDINATOR) Hgb A1C 7.1(H) 4.0 - 5.6 % [address] Estimated Average Glucose 157 mg/dL [address] Comment: The ADA recommends reporting an estimated Average Glucose (eAG) with all Hemoglobin A1c results using the equation derived from a study of 507 normal and diabetic adults. Minority populations were underrepresented and children were not included. (Diabetes Care 31:2743-1855, 2008). The eAG is not equivalent to a fasting glucose. Blood specimen (specimen) 06/12/2020 11:07 AM HOSPITAL COORDINATOR 06/12/2020 11:07 AM HOSPITAL COORDINATOR Radha Vail MD LAB BLOOD ORDERABLES Final Res ult [address] [address] [address] Department [place] [address] from Last 3 Months or Most Recently Relevant to Health Maintenance Insurance MEDICARE [facility] MEDICARE [facility] MEDICARE SUPPLEMENT MEDICARE [facility] MEDICARE SUPPLEMENT Advance Directives For more information, please contact: [phone] * Full Code (Latest Code Status on File) Date Activated Date Inactivated Comments 08/29/2021 10:11 AM 08/30/2021 4:39 AM * Full Code Date Activated Date Inactivated Comments 08/09/2021 1:32 AM 08/10/2021 5:05 PM * Full Code Date Activated Date Inactivated Comments 06/10/2020 9:27 PM 06/26/2020 6:18 PM * Full Code Date Activated Date Inactivated Comments 06/04/2020 11:30 AM 06/10/2020 9:22 PM * Full Code Date Activated Date Inactivated Comments 03/02/2018 12:19 PM 03/03/2018 4:40 PM Care Teams Marine Painter Relationship Specialty Start Date End Date Dre Zavaleta DO [address] [place] [id number] PCP - General Internal Medicine 01/14/24 [place] [address] [address] [address] Consulting Physician Pulmonary Disease 06/25/20 Arpit Han MD PhD [address] [place] [address] Radiation Oncologist Radiation Oncology 10/04/21 [place] [address] [address] [address] Referring Physician Pulmonary Disease 10/04/21 Harvey Alex MD [address] [address] Referring Physician Hematology 02/01/22
--- OUTSIDE RECORDS SUMMARY | 2024-07-15 15:01 | XMS_ITS ---
Author Organization [facility] Address [address] [place] [address] Care Team Providers Care Goldbeater Name Role Phone Zia Mercedes MD Unavailable [phone] Arpit Han MD PhD Unavailable [phone] Zia Mercedes MD Unavailable [phone] Harvey Alex MD Unavailable [phone] Dre Zavaleta DO Primary Care Provider [phone] Active Problems Problem Noted Date Diagnosed Date [...] on chronic respiratory failure with hypoxi a ([facility]) 06/04/2020 Assessment & Plan (08/09/2021 1:50 PM [...] 06/04/2020 Assessment & Plan (06/04/2020 6:00 PM CARD PLACER): Mild elevation of AST and ALT most likely due to acute infection. Will monitor while on remdesivir. Respiratory alkalosis 06/04/2020 Assessment & Plan (06/04/2020 6:01 PM CARD PLACER): Due to hyperventilation from hypoxia on admission. Monitor respiratory function with supplemental oxygen. Chronic obstructive pulmonar y disease with acute exacerbation ([facility]) 06/04/2020 Assessment & Plan (08/09/2021 1:52 PM CDT): Patient on prednisone, symbicort, and albuterol prn at home. - continue home meds - Mucinex DM and Tessalon perles added for cough Assessment & Plan (08/09/2021 1:35 AM CDT): Continue breathing treatments Assessment & Plan (06/04/2020 6:02 PM CARD PLACER): Mild COPD exacerbation due to COVID-19, breath sounds diminished with mild end expiratory wheezing and a cough productive of small amounts of yellow sputum. Continue steroids for COVID-19 along with home Symbicort and albuterol p.r.n. COVID-19 05/29/2020 Assessment & Plan (06/04/2020 6:04 PM CARD PLACER): Shortness of breath worsened since initial diagnosis [...] 05/29/2020 Assessment & Plan (06/04/2020 5:59 PM CARD PLACER): Unable to obtain CTA chest because of allergy to IV contrast, but symptoms are not suggestive of acute the and D-dimer is very slightly above the threshold for normal. Will treat with Lovenox at half therapeutic dose because of COVID-19. Rheumatoid arthritis involvi ng multiple sites with positive rheumatoid factor ([facility]) 05/29/2020 Assessment & Plan (08/09/2021 1:49 PM CDT): Holding Plaquenil and Celebrex. Continue prednisone daily. Assessment & Plan (08/09/2021 1:33 AM CDT): Holding Plaquenil. Continue prednisone daily. Assessment & Plan (06/04/2020 5:57 PM CARD PLACER): Continue home RA regimen, will need to [...] ordered Assessment & Plan (06/04/2020 5:58 PM CARD PLACER): Uses CPAP at home, but does not [...] protrusion 01/13/2018 Acute cystitis with hematuria Dehydration Current Treatment and Therapy Plans No current plan information found. Past Treatment and Therapy Plans No past plan information found. Radiation Treatments * Course C1 10/22/2021 - 10/26/2021 Treatment Period Energy Fraction Dose Fractions Total Dose Plans Planned SBRT L LUNG 10/22/2021 - 10/26/2021 1,100 5 / 5,500 Reference Points Delivered SBRT L LUNG 10/22/2021 - 10/26/2021 5,500 Lifetime Dose Tracking * Chemical Lifetime Dose Automatic Entry Manual Entr y Fluoro Time 0.25 minutes 0.25 minutes 0 minutes Resolved Problems Problem Noted Date Diagnosed Date Resolved Date Lactic acidosis 08/09/2021 08/09/2021 Assessment & Plan (08/09/2021 1:33 AM CDT): Persistent. Continue IV fluids
--- OUTSIDE RECORDS SUMMARY | 2024-07-15 15:01 | XMS_ITS | Encounter Summary ---
Author Organization [facility] Health Address [address] [facility] [address] Care Team Providers Care Senior Wealth Advisor Name Role Phone Julius Encinas MD Primary Care Provider [phone] Valeriy Lawson MD Unavailable [phone] Encounter Details Date Type Department Care Team (Late st Contact Info) Description 02/10/2014 [facility] Outpatient Visit EXTERNAL NON-[facility] DEPT Valeriy Lawsno MD [address] [place] [address] Social History Tobacco Use Types Packs/Day Years Used Date Smoking Tobacco: Former Cigarettes 0 09/20/1992 - 09/20/2000 Smokeless Tobacco: Never Comments:unk date and mon Alcohol Use Standard Drinks/Week Comments No 0 (1 standard drink = 0.6 oz pur e alcohol) Sex and Gender Information Value Date Recorded Sex Assigned at Not on file Gender Identity Not on file Sexual Orientation Not on file documented as of this encounter Plan of Treatment Not on file documented as of this encounter Visit Diagnoses Not on filedocumented in this encounter Care Teams Senior Wealth Advisor Relationship Specialty Start Date End Date Julius Encinas MD [address] [place] [address] PCP - General 3/6/09 Valeriy Lawson MD [address] [place] [address] 11/13/09 documented as of this encounter
--- OUTSIDE RECORDS SUMMARY | 2024-07-15 15:01 | XMS_ITS | Encounter Summary ---
Author Organization [facility] Health Address [address] [facility] [place] [address] Care Team Providers Care Pneumatic Tube Repairer Name Role Phone Julius Encinas MD Primary Care Provider [phone] Valeriy Lawson MD Unavailable [phone] Encounter Details Date Type Department Care Team (Late st Contact Info) Description 09/23/2013 [facility] Outpatient Visit EXTERNAL NON-[facility] DEPT Valeriy Lawson MD [address] [place] [address] Social History Tobacco Use Types Packs/Day Years [...] on filedocumented in this encounter Care Teams Pneumatic Tube Repairer Relationship Specialty Start Date End Date Julius Encinas MD [address] [place] [address] PCP - General 3/6/09 Valeriy Lawson MD [address] [place] [address] 11/13/09 documented as of this encounter
--- OUTSIDE RECORDS SUMMARY | 2024-07-15 15:01 | XMS_ITS | Encounter Summary ---
Author Organization [facility] Address [address] [facility] [place] [address] Care Team Providers Care Outside Deliverer Name Role Phone Julius Encinas MD Primary Care Provider [phone] Valeriy Lawson MD Unavailable [phone] Encounter Details Date Type Department Care Team (Late st Contact Info) Description 02/11/2014 Therapy Visit EXTERNAL NON-[facility] DEPT Valeriy Lawson MD [address] [place] [address] Social History Tobacco Use Types Packs/Day Years [...] on filedocumented in this encounter Care Teams Outside Deliverer Relationship Specialty Start Date End Date Julius Encinas MD [address] [place] [address] PCP - General 06/10/08 Valeriy Lawson MD [address] [place] [address] 11/13/09 documented as of this encounter
--- OUTSIDE RECORDS SUMMARY | 2024-07-15 15:01 | XMS_ITS | Referral Summary ---
Author Organization [facility] Address [address] [place] [address] Care Team Providers Care Psychology Teacher Name Role Phone Zia Mercedes MD Unavailable [phone] Arpit patton MD PhD Unavailable [phone] Zia Mercedes MD Unavailable [phone] Harvey Alex MD Unavailable [phone] Dre Zavaleta DO Primary Care Provider [phone] Allergies Active Allergy Reactions Criticality Noted Date [...] on chronic respiratory failure with hypoxi a ([facility]) 06/04/2020 Assessment & Plan (08/09/2021 1:50 PM [...] 06/04/2020 Assessment & Plan (06/04/2020 6:00 PM FINAL INSPECTION SUPERVISOR): Mild elevation of AST and ALT most likely due to acute infection. Will monitor while on remdesivir. Respiratory alkalosis 06/04/2020 Assessment & Plan (06/04/2020 6:01 PM FINAL INSPECTION SUPERVISOR): Due to hyperventilation from hypoxia on admission. Monitor respiratory function with supplemental oxygen. Chronic obstructive pulmonar y disease with acute exacerbation ([facility]) 06/04/2020 Assessment & Plan (08/09/2021 1:52 PM CDT): Patient on prednisone, symbicort, and albuterol prn at home. - continue home meds - Mucinex DM and Tessalon perles added for cough Assessment & Plan (08/09/2021 1:35 AM CDT): Continue breathing treatments Assessment & Plan (06/04/2020 6:02 PM FINAL INSPECTION SUPERVISOR): Mild COPD exacerbation due to COVID-19, breath sounds diminished with mild end expiratory wheezing and a cough productive of small amounts of yellow sputum. Continue steroids for COVID-19 along with home Symbicort and albuterol p.r.n. COVID-19 05/29/2020 Assessment & Plan (06/04/2020 6:04 PM FINAL INSPECTION SUPERVISOR): Shortness of breath worsened since initial diagnosis [...] 05/29/2020 Assessment & Plan (06/04/2020 5:59 PM FINAL INSPECTION SUPERVISOR): Unable to obtain CTA chest because of allergy to IV contrast, but symptoms are not suggestive of acute the and D-dimer is very slightly above the threshold for normal. Will treat with Lovenox at half therapeutic dose because of COVID-19. Rheumatoid arthritis involvi ng multiple sites with positive rheumatoid factor ([facility]) 05/29/2020 Assessment & Plan (08/09/2021 1:49 PM CDT): Holding Plaquenil and Celebrex. Continue prednisone daily. Assessment & Plan (08/09/2021 1:33 AM CDT): Holding Plaquenil. Continue prednisone daily. Assessment & Plan (06/04/2020 5:57 PM FINAL INSPECTION SUPERVISOR): Continue home RA regimen, will need to [...] ordered Assessment & Plan (06/04/2020 5:58 PM FINAL INSPECTION SUPERVISOR): Uses CPAP at home, but does not [...] Administration Dates Next Due Influenza, Unspecified 12/07/2019 Social History Tobacco Use Types Packs/Day Years [...] on file Legal Sex Male 1:51 AM FINAL INSPECTION SUPERVISOR Gender Identity Not on file Sexual Orientation Not on file Last Filed Vital Signs Vital Sign Reading Time Taken Comments Blood Pressure 122/73 03/03/2024 12:45 PM FINAL INSPECTION SUPERVISOR Pulse 94 03/03/2024 12:45 PM FINAL INSPECTION SUPERVISOR Temperature 37.6 C (99.7 F) 03/03/2024 6:46 AM FINAL INSPECTION SUPERVISOR Respiratory Rate 16 03/03/2024 12:45 PM FINAL INSPECTION SUPERVISOR Oxygen Saturation 95% 03/03/2024 12:45 PM FINAL INSPECTION SUPERVISOR Inhaled Oxygen Concentration - - Weight 97.1 kg (214 lb) 03/03/2024 6:46 AM FINAL INSPECTION SUPERVISOR Height 170.2 cm (5' 7 ) 03/03/2024 6:46 AM FINAL INSPECTION SUPERVISOR Body Mass Index 33.52 03/03/2024 6:46 AM FINAL INSPECTION SUPERVISOR Plan of Treatment Not on file Goals Goal Patient Goal Type Associated Problems Recent Progress Patient-Stated? Author [facility] No Estelita Ornelas, SARA Note: Pt would like to complete ADLs, ride motorcycle with minimal pain. Medical Devices Implanted Type Area Toddler Nanny Device Identifier Shelf Expiration Date Model / Serial / Lot Other-See Comments Other - see comments Bilatera l: Knee Description:R. Total knee- 2 020 L. Total Knee-2015 Procedures Procedure Name Priority Date/Time Associated Diagnosis Comments EGFR STAT 03/03/2024 7:02 AM FINAL INSPECTION SUPERVISOR CT CHEST ABDOMEN PELVIS WO CONTRAST Schedule Routine, Read Routine (OP Routine) 01/21/2023 11:07 AM CDT HEPATITIS PANEL, ACUTE Routine 06/19/2020 8:11 PM CDT HEMOGLOBIN A1C Add-On 06/12/2020 11:07 AM FINAL INSPECTION SUPERVISOR from Last 3 Months or Most Recently Relevant to Health Maintenance Results * (ABNORMAL) eGFR (03/03/2024 7:02 AM FINAL INSPECTION SUPERVISOR) eGFR 47(L) >=60 mL/min/1. 73 m2 Comment: [...] Inclusion of Race in Diagnosing Kidney Disease, JASN 2020). The CKD-EPI equation should not be used for patients with unstable renal function and has not been validated in children and those over 70. Current interpretive data was last reviewed 2021. Blood 03/03/2024 7:02 AM FINAL INSPECTION SUPERVISOR 03/03/2024 7:06 AM FINAL INSPECTION SUPERVISOR us Deandre Vasquez DO LAB BLOOD ORDERABLES Final Res ult [facility] [address] Department [place] [address] * CT Chest Abdomen Pelvis WO Contrast (01/21/2023 11:07 AM CDT) Anatomical Region Laterality Modality Body N/A Computed Tomogra phy Arpit Han MD PhD IMG CT PROCEDURES Prudence l Result * Hepatitis panel, acute (06/19/2020 8:11 PM CDT) Hep A IgM Nonreactive Nonreactive [facility] Comment: Interpretive Data: If Hep A IgM Ab is reported as Equivocal, a new sample should be drawn in two weeks for testing. Current interpretive data was last revised on 19. Hep B core IgM Nonreactive Nonreactive [facility] Comment: Interpretive Data If HepB Core IgM Ab is reported as Equivocal, a new sample should be drawn in two weeks for testing. Current interpretive data was last revised on 19. Hep C Ab Nonreactive Nonreactive [facility] Comment: Interpretive Data Nonreactive: Antibodies to [...] last revised on 2019. HepBsAg Nonreactive Nonreactive [facility] Blood specimen (specimen) 06/19/2020 8:11 PM CDT 06/19/2020 8:15 PM CDT us Andres Zuñiga MD LAB MICROBIOLOGY - GENE RAL ORDERABLES Final Result Performing Organization Address [facility] Co de Phone Number [address] [address] Department [place] [address] * (ABNORMAL) Hemoglobin A1c (06/12/2020 11:07 AM FINAL INSPECTION SUPERVISOR) Hgb A1C 7.1(H) 4.0 - 5.6 % ALICIA Estimated Average Glucose 157 mg/dL ALICIA Comment: The ADA recommends reporting an estimated Average Glucose (eAG) with all Hemoglobin A1c results using the equation derived from a study of 507 normal and diabetic adults. Minority populations were underrepresented and children were not included. (Diabetes Care 31:9284-4732, 2008). The eAG is not equivalent to a fasting glucose. Blood specimen (specimen) 06/12/2020 11:07 AM FINAL INSPECTION SUPERVISOR 06/12/2020 11:07 AM FINAL INSPECTION SUPERVISOR Radha Vail MD LAB BLOOD ORDERABLES Final Res ult Performing Organization Address [facility] Co de Phone Number [address] [address] [address] Department [place] [address] from Last 3 Months or Most Recently Relevant to Health Maintenance Insurance MEDICARE [facility] MEDICARE BLUE CROSS MEDICARE SUPPLEMENT MEDICARE [facility] MEDICARE SUPPLEMENT Advance Directives For more information, please contact: [phone] * Full Code (Latest Code Status on [...] 12:19 PM 03/03/2018 4:40 PM Care Teams Psychology Teacher Relationship Specialty Start Date End Date Dre Zavaleta DO [address] [facility] [address] [place], [place] [id number] PCP - General Internal Medicine 01/14/24 [place] [id number] [address] Consulting Physician Pulmonary Disease 06/25/20 Arpit Han MD PhD [address] [place] [address] Radiation Oncologist Radiation Oncology 10/04/21 [place] [address] [place] [address] Referring Physician Pulmonary Disease 10/04/21 Harvey Alex MD [address] [place] [address] Referring Physician Hematology 02/01/22
--- OUTSIDE RECORDS SUMMARY | 2024-07-15 15:01 | XMS_ITS | Encounter Summary ---
Author Organization [facility] Address [address] [facility] [place] [address] Care Team Providers Care Nanotechnician Name Role Phone Julius Encinas MD Primary Care Provider [phone] Valeriy Lawson MD Unavailable [phone] Encounter Details Date Type Department Care Team (Late st Contact Info) Description 04/13/2014 Therapy Visit EXTERNAL NON[facility] DEPT Unknown, Provider Social History Tobacco Use Types Packs/Day Years [...] on filedocumented in this encounter Care Teams Nanotechnician Relationship Specialty Start Date End Date Julius Encinas MD [address] [place] [address] PCP - General 06/10/08 Valeriy Lawson MD [address] [place] [address] 11/13/09 documented as of this encounter
--- OUTSIDE RECORDS SUMMARY | 2024-07-15 15:01 | XMS_ITS | Clinical Summary ---
Author Organization [facility] Address [address] [place] [address] Care Team Providers Care Field Assembly Supervisor Name Role Phone Km Gipson MD Primary Care Provider [phone] Allergies Active Allergy Reactions Criticality Noted Date Comments Infliximab Rash Low 2008 Swollen hands, headache, unsteady Iodinated Contrast Media Rash Low 06/10/2008 Iodine Rash Low 09/22/2020 Medications multivitamin (DAILY-PETE) tablet Take 1 Tablet by mouth daily. Active aspirin (ECOTRIN EC) 81 mg Tablet, Delayed Release (E.C.) Take 81 mg by mouth daily. Active doxazosin (CARDURA) 2 mg tablet Take 4 mg by mouth daily at bedtime. Active pravastatin (PRAVACHOL) 20 mg tablet Take 20 mg by mouth daily. Active folic acid (FOLVITE) 1 mg tablet Take 1 mg by mouth daily. Active omeprazole (PriLOSEC) 40 mg Capsule, Delayed Release(E.C.) Take 20 mg by mouth daily . Active temazepam (RESTORIL) 30 mg capsule Take 30 mg by mouth nightly as needed for Insomnia. Active predniSONE (DELTASONE) 5 mg tablet Take 5 mg by mouth 2 times daily with meals. Active budesonide-formo terol (SYMBICORT) 160-4.5 mcg/actuation HFA Aerosol Inhaler Take 2 Puffs by inhalation 2 times daily. Active albuterol HFA 90 mcg inhaler Take 2 Puffs by inhalation every 6 hours as needed for Shortness of Breath. Active azelaic acid (FINEVIN) 20 % Cream Apply to affected area 1 time daily as needed. Active triamcinolone acetonide (KENALOG) 0.1 % Ointment Apply to affected area 1 time daily as needed. Active oxyCODONE-acetam inophen (PERCOCET) 10-325 mg Tablet Take 1 Tablet by mouth every 4 hours as needed for Pain, Severe. Active albuterol (PROVENTIL,CAMRYN OVIDIO) 2.5 mg /3 mL (0.083 %) Solution for Nebulization Take 2.5 mg by inhalation 4 times daily. Active diltiaZEM (CARDIZEM CD) 180 mg Controlled Delivery 24 hour capsule Take 180 mg by mouth daily. Active hydroCHLOROthiaz jerica 25 mg tablet Take 25 mg by mouth daily. Active docosahexaenoic acid/epa (FISH OIL ORAL) Take by mouth. Activ e FLUTICASONE FUROATE INHALATION Take by inhalation. Active etanercept 50 mg/mL (0.98 mL) Syringe Inject 50 mg by subcutaneous injection. Active predniSONE (DELTASONE) 10 mg tablet Take 1 tablet PO daily x 5 days, then take 0.5 tablet PO daily 1 Active Rosenberg-3 Fatty Acids 1,000 mg Capsule Take 1,000 mg by mouth. Active tamsulosin (FLOMAX) 0.4 mg capsule 0.4 mg. Active traZODone (DESYREL) 50 mg tablet trazodone 50 mg tablet Active metFORMIN (GLUCOPHAGE) 500 mg tablet Take 500 mg by mouth. 1 Active Magnesium 200 mg Tablet Take 400 mg by mouth. Active HYDROcodone-acet aminophen (NORCO) 5-325 mg tablet hydrocodone 5 mg-acetaminophen 325 mg tablet Active mupirocin (BACTROBAN) 2 % Ointment mupirocin 2 % topical ointment Active apixaban (Eliquis) 2.5 mg tablet Eliquis 2.5 mg tablet TK 1 T PO BID Active celecoxib (CeleBREX) 200 mg capsule Take 200 mg by mouth. Active cephALEXin (KEFLEX) 500 mg capsule cephalexin 500 mg capsule TK ONE C PO Q 6 H. Active fluticasone propionate (FLONASE) 50 mcg/spray Pierce, Suspension nasal inhaler Administer 2 Sprays in each nostril daily at bedtime. Active hyoscyamine sulfate 0.125 mg tablet Take 0.125 mg by mouth every 4 hours as needed for Spasm. Active Active Problems Problem Noted Date Diagnosed Date Lung nodule 09/20/2021 COPD (chronic obstructive pulmonary disease) 04/2015 Benign hypertension 03/07/2016 Splenomegaly 03/07/2016 Rheumatoid arthritis involving multiple sites Encounters Date Type Department Care Team Description 06/09/2024 External Device Data STL ABSTRACTION Provider, Abstract 04/28/2024 External Device Data STL ABSTRACTION Provider, Abstract from Last 3 Months Family History Medical History Relation Name Comments Cancer Brother 1 Heart Disease Father Cancer Mother Other Sister 1 lupus Cancer Sister 2 liver Relation Name Status Comments Brother 1 Brother 2 Alive Father Mother Sister 1 lupus Sister 2 liver Sister 3 Alive Social History Tobacco Use Types Packs/Day Years Used Date Smoking Tobacco: Former Cigarettes 2 40 1 [phone] - 9159 Tobacco Cessation:Counseling Given: Not Answered Alcohol Use Standard Drinks/Week Comments Yes 0 (1 standard drink = 0.6 oz pur e alcohol) Sex and Gender Information Value Date Recorded Sex Assigned at Not on file Legal Sex Male 10:35 AM MERRY GO ROUND ATTENDANT Gender Identity Not on file Sexual Orientation Not on file Last Filed Vital Signs Vital Sign Reading Time Taken Comments Blood Pressure 131/71 02/13/2024 9:24 AM MERRY GO ROUND ATTENDANT Pulse 100 02/13/2024 9:24 AM MERRY GO ROUND ATTENDANT Temperature 36.6 C (97.8 F) 02/13/2024 9:24 AM MERRY GO ROUND ATTENDANT Respiratory Rate 16 02/13/2024 9:24 AM MERRY GO ROUND ATTENDANT Oxygen Saturation 93% 02/13/2024 9:24 AM MERRY GO ROUND ATTENDANT Inhaled Oxygen Concentration - - Weight 97.4 kg (214 lb 12.8 oz) 02/13/2024 9:24 AM MERRY GO ROUND ATTENDANT Height 175.3 cm (5' 9 ) 12/20/2021 9:31 AM CDT Body Mass Index 31.72 12/20/2021 9:31 AM CDT Plan of Treatment Upcoming Encounters Date Type Department Care Team (Late st Contact Info) Description 08/11/2024 10:00 AM CDT Office Visit [facility] Oncology and Hematology - [place] [address] [place] [address] Harvey Alex MD [address] [facility] [address] [place] [address] Health Maintenance Due Date Last Done Comments DIABETES ANNUAL FOOT EXAM 1962 DIABETES MICROALBUMIN ANNUAL SCREEN 1962 LDL CHOLESTEROL ANNUAL 1962 DTAP/TDAP/TD VACCINES (1 - Tdap) 08/04/1963 PNEUMOCOCCAL VACCINE 50+ YEA RS (1 of 2 - PCV) 08/04/1963 ZOSTER VACCINE (1 of 2) 08/04/1963 RSV VACCINE (60+ or ) (1 - 1-dose 75+ series) 08/04/2019 DIABETES HBA1C Q 6 MONTHS 12/18/20222022, 11/13/2021, 04/17/2021, Additional history exists INFLUENZA VACCINE (#1) 2023 4, 01/21/2011, 01/11/2010 DIABETES ANNUAL RETINAL EXAM 08/05/202404/2023, 08/06/2023, 11/13/2018, Additional history exists COLORECTAL SCREENING Discontinued 11/13/2023, 08/08/2022, 09/11/2017, Additional history exists Colorectal Cancer Screening Discontinued FIT-DNA Q 3 years Discontinued FIT/FOBT Q 1 year Discontinued Flex Sig/CT Colonography Q 5 years Discontinued Insurance MEDICARE PART A AND B [facility] SUPP MEDICARE PART A AND B BCBS SUPP Care Teams Field Assembly Supervisor Relationship Specialty Start Date End Date Km Gipson MD [address] [place] [address] PCP - General Family Practice 01/28/23
--- OUTSIDE RECORDS SUMMARY | 2024-07-15 15:01 | XMS_ITS | Encounter Summary ---
Author Organization [facility] Health Address [address] [place] [address] Care Team Providers Care Crowd Controller Name Role Phone Julius Encinas MD Primary Care Provider [phone] Valeriy Lawson MD Unavailable [phone] Encounter Details Date Type Department Care Team (Late st Contact Info) Description 05/04/2013 [facility] Outpatient Visit EXTERNAL NON-[facility] DEPT Valeriy Lawson MD [address] [place] [address] Social History Tobacco Use Types Packs/Day Years [...] on filedocumented in this encounter Care Teams Crowd Controller Relationship Specialty Start Date End Date Julius Encinas MD [address] [place] [address] PCP - General 3/6/09 Valeriy Lawson MD [address] [place] [address] 11/13/09 documented as of this encounter
--- OUTSIDE RECORDS SUMMARY | 2024-07-15 15:01 | XMS_ITS | Clinical Summary ---
Author Organization [facility] Address [address] [place] [address] Care Team Providers Care Yard Clerk Name Role Phone Unavailable Primary Care Provider Unavailabl e Social History Tobacco Use Types Packs/Day Years Used Date Smoking Tobacco: Never Assessed Sex and Gender Information Value Date Recorded Sex Assigned at Not on file Legal Sex Male 11:12 AM EDT Gender Identity Not on file Sexual Orientation Not on file Plan of Treatment Not on file
--- OUTSIDE RECORDS SUMMARY | 2024-07-15 15:01 | XMS_ITS | Clinical Summary ---
Author Organization [facility] Address [address] [place] [address] Care Team Providers Care Electrician Outside Name Role Phone Julius Encinas MD Primary Care Provider [phone] Valeriy Lawson MD Unavailable [phone] Source Comments [facility],non-owned Affiliates and Associated Physician Practices is amultiple site organization consisting of ambulatory clinics and hospital sitesin [place], [place], [place] and [place]. This disclosure is being madepursuant to the Care Everywhere program and may not contain all information available regarding this patient. Last updated 17.[facility] Allergies Active Allergy Reactions Criticality Noted Date Comments Contrast-Iodinated Agents For Ct/Other 06/10/2008 Infliximab Injection 2008 Swollen hands, headache, unsteady Medications * Be aware that medications may not be up to date on this document. Alwaysverify current medications with the patient. Medication Sig Dispensed Refills Start Date End Date Status temazepam (RESTORIL) 30 MG capsule Take 30 mg by mouth nightly as needed for Insomnia. Active doxazosin (CARDURA) 2 MG tablet Take 4 mg by mouth at bedtime Active vitamin E (TOCOPHERYL) 1000 UNIT capsule Take 1 Cap by mouth daily. Active MULTIPLE VITAMINS PO Take by mouth daily. Acti ve [place]-3 Fatty Acids (FISH OIL) 1200 MG CAPS Take by mouth 2 times daily. Active pravastatin (PRAVACHOL) 20 MG tablet Take 20 mg by mouth at bedtime. Active albuterol-ipratro pium (COMBIVENT) 18-103 MCG/ACT inhaler Inhale 2 Puffs by mouth 4 times daily as needed. Active budesonide-formot moo (SYMBICORT) 160-4.5 MCG/ACT inhaler Inhale 2 Puffs by mouth 2 times daily. Active aspirin 81 MG tablet Take 161 mg by mouth once daily. Active albuterol HFA (PROAIR HFA) 108 (90 BASE) MCG/ACT inhaler Inhale 2 Puffs by mouth every 4 hours as needed. Active cyclobenzaprine (FLEXERIL) 10 MG tablet Take 1 Tab by mouth nightly as needed for Muscle Spasms 30 Tab 5 03/16/2015 Active Additional Information Patient not taking.Reported on 02/11/2018 omeprazole (PRILOSEC) 40 MG capsule 04/24/2015 Active methotrexate 2.5 MG tablet TAKE FOUR TABLETS BY MOUTH EVERY 7 DAYS 48 Tab 1 01/16/2016 Active tamsulosin (FLOMAX) 0.4 MG capsule Take 0.4 mg by mouth once daily Take 30 minutes after a meal at the same time each day. Active nitroGLYCERIN (NITROSTAT) 0.4 MG tablet 04/09/2016 Active CARTIA XT 180 MG capsule 11/13/2016 Active ciprofloxacin (CIPRO) 500 MG tablet 11/07/2016 Active azelastine (ASTELIN) 0.1 % nasal spray 10/18/2016 Active hydroxychloroquin e (PLAQUENIL) 200 MG tablet Take 1 tablet by mouth 2 times daily 60 tablet 5 08/15/2017 Active Additional Information Patient not taking.Reported on 02/11/2018 etanercept (ENBREL) 50 MG/ML auto-injector pen Inject subcutaneously every 7 days Active folic acid (FOLVITE) 1 MG tablet TAKE ONE TABLET BY MOUTH ONCE DAILY 90 tablet 2 01/20/2018 Active oxyCODONE-acetami nophen (PERCOCET) 10-325 MG tablet 1 pill every 3 Hr prn 240 tablet 11/25/2018 Active meloxicam (MOBIC) 7.5 MG tablet Take 1 tablet by mouth once daily 90 tablet 2 12/23/2018 Active predniSONE (DELTASONE) 5 MG tablet Take 1 tablet by mouth 2 times daily 180 tablet 1 12/23/2018 Active Active Problems Problem Noted Date Diagnosed Date Primary osteoarthritis of both hips 05/16/2017 Chronic bilateral low back pain with right-sided sciatica 02/14/2017 Lumbar radiculopathy, chronic 02/14/2017 Cervical radiculopathy 02/14/2017 Complete tear of right rotator cuff 09/18/2016 Pain in joint of right shoulder 06/14/2016 Chronic pain syndrome 10/07/2013 COPD (chronic obstructive pulmonary disease) Overview (08/19/2011): Start date 2008 Chronic obstructive pulmonary disease 12/14/2008 Overview (08/19/2011): Start date 2008 BENIGNO (obstructive sleep apnea) 12/14/2008 Overview (08/19/2011): Start date 2008 Hyperlipidemia 06/10/2008 Overview (08/19/2011): Start date 1999 Hypertension 06/10/2008 Overview (08/19/2011): Start date 1999 Rheumatoid arthritis of [facility] with negative rheumatoid factor 05/25/2008 Overview (02/12/2015): Start date 2001, Enbrel 2007(start 02/11/2008) x 5 months- unresponsive,methotrexate 2003, screen 2011 for fostimatanib arthritis study and withdrawn 10/30/12 due to sponsor's decision. Sirukumab RA study screening date 10/19/2013 but screen failed due to eligibility criteria not met. Previous NSAIDs used Vioxx, Bextra, Celebrex 2004, Immunizations Name Administration Dates Next Due INFLUENZA VACCINE, TRIV. (AF LURIA, FLUZONE TRIVALENT; 6MO+) (IIV3) 01/21/2011,01/11/2010 INFLUENZA VACCINE, HIGH-DOSE , QUADR. (FLUZONE HIGH-DOSE QUADRIVALENT; 65Y+), 0.7 ML (HD-IIV4) 12/13/2013 Influenza Pf Intradermal (ADULT) 01/17/2012 Social History Tobacco Use Types Packs/Day Years Used Date Smoking Tobacco: Former Cigarettes 0 09/20/1992 - 09/20/2000 Smokeless Tobacco: Never Tobacco Cessation:Counseling Given: No Comments:unk date and mon Alcohol Use Standard Drinks/Week Comments No 0 (1 standard drink = 0.6 oz pur e alcohol) Sex and Gender Information Value Date Recorded Sex Assigned at Not on file Gender Identity Not on file Sexual Orientation Not on file Last Filed Vital Signs Vital Sign Reading Time Taken Comments Blood Pressure 139/60 12/23/2018 1:04 PM CDT Pulse 80 12/23/2018 1:04 PM CDT Temperature 36.6 C (97.8 F) 07/14/2008 1:03 PM CDT Respiratory Rate 18 07/14/2008 1:03 PM CDT Oxygen Saturation - - Inhaled Oxygen Concentration - - Weight 111.6 kg (246 lb) 12/23/2018 1:04 PM CDT Height 176.5 cm (5' 9.5 ) 08/15/2017 8:47 AM CDT Body Mass Index 35.81 08/15/2017 8:47 AM CDT Plan of Treatment Health Maintenance Due Date Last Done Comments MEDICARE AWV 12 MONTHS 1944 DTAP/TDAP/TD VACCINES (1 - Tdap) 08/04/1963 PNEUMOCOCCAL VACCINE 50+ (1 of 2 - PCV) 08/04/1963 ZOSTER VACCINE (1 of 2) 1994 Respiratory Syncytial Virus (RSV) Vaccine Pt: or over 60 yrs (1 - 1-dose 75+ series) 08/04/2019 COVID-19 VACCINE (1 - season) 2023 DEPRESSION SCREENING 04/07/2024 INFLUENZA VACCINE (Season Ended) 2024 12/13/2013, 01/17/2012, 01/21/2011, Additional history exists HEPATITIS B VACCINE Aged Out No longe r eligible based on patient's age to complete this topic HIB VACCINE Aged Out No longer eligi ble based on patient's age to complete this topic HPV VACCINE Aged Out No longer eligi ble based on patient's age to complete this topic MENINGOCOCCAL (Group B) VACCINE SHARED DECISION-MAKING Aged Out No longer eligible based on patient's age to complete this topic MENINGOCOCCAL GROUPS A/C/Y/W VACCINE Aged Out No longer eligible based on patient's age to complete this topic Care Teams Electrician Outside Relationship Specialty Start Date End Date Julius Encinas MD [address] [place] [address] PCP - General 06/10/08 Valeriy Lawson MD [address] [place] [address] 8/9/10
--- OUTSIDE RECORDS SUMMARY | 2024-07-15 15:01 | XMS_ITS | Encounter Summary ---
Author Organization [facility] Address [address] [place] [address] Care Team Providers Care Wood Pole Treater Name Role Phone Julius Encinas MD Primary Care Provider [phone] Valeriy Lawson MD Unavailable [phone] Encounter Details Date Type Department Care Team (Late st Contact Info) Description 08/24/2010 [facility] Outpatient Visit [facility] - Family Medicine [id number] [place] [id number] Valeriy Lawson MD [address] [place], [place] [id number] Social History Tobacco Use Types Packs/Day Years [...] on filedocumented in this encounter Care Teams Wood Pole Treater Relationship Specialty Start Date End Date Julius Encinas MD [address] [place] [address] PCP - General 06/10/08 Valeriy Lawson MD [address] [place] [address] 11/13/09 documented as of this encounter
--- NOTE | 2024-07-15 15:29 | ECG_ITS ---
Test Date: 2024-07-15 15:33:13 Measurements Intervals Fritch Rate: 99 P: 27 WY: 147 QRS: 32 QRSD: 137 T: 22 QT: 372 QTc: 479 Interpretive Statements SINUS RHYTHM RIGHT BUNDLE BRANCH BLOCK ABNORMAL ECG Compared to ECG 04/15/2024 11:53:12 No significant changes Electronically Signed On 07-15-2024 15:32:39 CDT by Lico Perez D.O.
[2024-07-15 15:56] LABS: Basophils Absolute Auto 0.1 K/mm3 (0.0-0.1); Basophils Percent Auto 0.7 % (0.2-1.2); Eosinophils Absolute Auto 0.3 K/mm3 (0-0.3); Hematocrit 35.6 % (42.0-52.0); Immature Granulocyte Absolute 0.07 K/mm3 (0.00-0.031); Immature Granulocyte Percent A 0.8 % (0-0.5); Lymphocytes Absolute Auto 0.92 K/mm3 (0.9-3.2); Lymphocytes Percent Auto 10.7 % (18.3-44.2); Mean Corpuscular HGB Conc 30.9 g/dl (32-36); Mean Corpuscular Hemoglobin 24.4 pg (26-34); Mean Corpuscular Volume 79.1 fl (80-100); Mean Platelet Volume 9.9 fl (7.4-10.4); Monocytes Absolute Auto 1.1 K/mm3 (0.1-0.6); Monocytes Percent Auto 12.3 % (2.6-8.5); Neutrophils Absolute Auto 6.2 K/mm3 (1.3-6.7); Neutrophils Percent Auto 72.5 % (45.5-73.1); Platelet Count Result 162 k/mm3 (150-375); Red Cell Distribution Width 17.2 % (11.5-14.5); White Blood Count 8.6 K/mm3 (4.5-10.0)
[2024-07-15 16:09] LABS: Alanine Aminotransferase 32 U/L (6-50); Albumin Level 3.4 g/dL (3.5-5.1); Alkaline Phosphatase 197 U/L (38-126); Anion Gap 8 mmol/L (4-12); Aspartate Amino Transferase 48 U/L (17-59); Bilirubin,Total 0.4 mg/dL (0.2-1.3); Blood Urea Nitrogen 24 mg/dL (9-20); Calcium 9.2 mg/dL (8.4-10.2); Carbon Dioxide 25 mmol/L (22-30); Chloride 101 mmol/L (98-107); Estimated CRCL calculation 34 ml/min; Estimated Glomerular Filt Rate 38; Glucose 136 mg/dL (65-110); Potassium 3.3 mmol/L (3.4-5.0); Sodium 134 mmol/L (137-145)
[2024-07-15 16:32] LABS: Influenza A QL RT-PCR Negative (Negative); Influenza B QL RT-PCR Negative (Negative); RSV RNA, RT-PCR Negative (Negative); SARS-CoV-2 RNA PCR Negative (Negative)
--- OUTSIDE RECORDS SUMMARY | 2024-07-15 16:39 | XMS_ITS ---
Author Organization [facility] Address [address] [place] [address] Care Team Providers Care Waste Transportation Technician Name Role Phone Zia Mercedes MD Unavailable [phone] Arpit Han MD PhD Unavailable [phone] Zia Mercedes MD Unavailable [phone] Harvey Alex MD Unavailable [phone] Dre Zavaleta DO Primary Care Provider [phone] Active Problems Problem Noted Date Diagnosed Date [...] on chronic respiratory failure with hypoxi a ([facility]) 06/04/2020 Assessment & Plan (08/09/2021 [...] 06/04/2020 Assessment & Plan (06/04/2020 6:00 PM GEM STONE CUTTER): Mild elevation of AST and ALT most likely due to acute infection. Will monitor while on remdesivir. Respiratory alkalosis 06/04/2020 Assessment & Plan (06/04/2020 6:01 PM GEM STONE CUTTER): Due to hyperventilation from hypoxia on admission. Monitor respiratory function with supplemental oxygen. Chronic obstructive pulmonar y disease with acute exacerbation ([facility]) 06/04/2020 Assessment & Plan (08/09/2021 1:52 PM CDT): Patient on prednisone, symbicort, and albuterol prn at home. - continue home meds - Mucinex DM and Tessalon perles added for cough Assessment & Plan (08/09/2021 1:35 AM CDT): Continue breathing treatments Assessment & Plan (06/04/2020 6:02 PM GEM STONE CUTTER): Mild COPD exacerbation due to COVID-19, breath sounds diminished with mild end expiratory wheezing and a cough productive of small amounts of yellow sputum. Continue steroids for COVID-19 along with home Symbicort and albuterol p.r.n. COVID-19 05/29/2020 Assessment & Plan (06/04/2020 6:04 PM GEM STONE CUTTER): Shortness of breath worsened since initial diagnosis [...] 05/29/2020 Assessment & Plan (06/04/2020 5:59 PM GEM STONE CUTTER): Unable to obtain CTA chest because of allergy to IV contrast, but symptoms are not suggestive of acute the and D-dimer is very slightly above the threshold for normal. Will treat with Lovenox at half therapeutic dose because of COVID-19. Rheumatoid arthritis involvi ng multiple sites with positive rheumatoid factor ([facility]) 05/29/2020 Assessment & Plan (08/09/2021 1:49 PM CDT): Holding Plaquenil and Celebrex. Continue prednisone daily. Assessment & Plan (08/09/2021 1:33 AM CDT): Holding Plaquenil. Continue prednisone daily. Assessment & Plan (06/04/2020 5:57 PM GEM STONE CUTTER): Continue home RA regimen, will need to [...] ordered Assessment & Plan (06/04/2020 5:58 PM GEM STONE CUTTER): Uses CPAP at home, but does not [...]
--- OUTSIDE RECORDS SUMMARY | 2024-07-15 16:39 | XMS_ITS | Referral Summary ---
Author Organization [facility] Address [address] [place] [address] Care Team Providers Care Janitorial Maintenance Worker Name Role Phone Zia Mercedes MD Unavailable [phone] Arpit patton MD PhD Unavailable [phone] Zia Mercedes MD Unavailable [phone] Harvey Alex MD Unavailable [phone] Dre Zavaleta DO Primary Care Provider [phone] Allergies Active Allergy Reactions Criticality Noted Date [...] on chronic respiratory failure with hypoxi a ([facility]) 06/04/2020 Assessment & Plan (08/09/2021 [...] 06/04/2020 Assessment & Plan (06/04/2020 6:00 PM PHYTOCHEMISTRY PROFESSOR): Mild elevation of AST and ALT most likely due to acute infection. Will monitor while on remdesivir. Respiratory alkalosis 06/04/2020 Assessment & Plan (06/04/2020 6:01 PM PHYTOCHEMISTRY PROFESSOR): Due to hyperventilation from hypoxia on admission. Monitor respiratory function with supplemental oxygen. Chronic obstructive pulmonar y disease with acute exacerbation ([facility]) 06/04/2020 Assessment & Plan (08/09/2021 1:52 PM CDT): Patient on prednisone, symbicort, and albuterol prn at home. - continue home meds - Mucinex DM and Tessalon perles added for cough Assessment & Plan (08/09/2021 1:35 AM CDT): Continue breathing treatments Assessment & Plan (06/04/2020 6:02 PM PHYTOCHEMISTRY PROFESSOR): Mild COPD exacerbation due to COVID-19, breath sounds diminished with mild end expiratory wheezing and a cough productive of small amounts of yellow sputum. Continue steroids for COVID-19 along with home Symbicort and albuterol p.r.n. COVID-19 05/29/2020 Assessment & Plan (06/04/2020 6:04 PM PHYTOCHEMISTRY PROFESSOR): Shortness of breath worsened since initial diagnosis [...] 05/29/2020 Assessment & Plan (06/04/2020 5:59 PM PHYTOCHEMISTRY PROFESSOR): Unable to obtain CTA chest because of allergy to IV contrast, but symptoms are not suggestive of acute the and D-dimer is very slightly above the threshold for normal. Will treat with Lovenox at half therapeutic dose because of COVID-19. Rheumatoid arthritis involvi ng multiple sites with positive rheumatoid factor ([facility]) 05/29/2020 Assessment & Plan (08/09/2021 1:49 PM CDT): Holding Plaquenil and Celebrex. Continue prednisone daily. Assessment & Plan (08/09/2021 1:33 AM CDT): Holding Plaquenil. Continue prednisone daily. Assessment & Plan (06/04/2020 5:57 PM PHYTOCHEMISTRY PROFESSOR): Continue home RA regimen, will need to [...] ordered Assessment & Plan (06/04/2020 5:58 PM PHYTOCHEMISTRY PROFESSOR): Uses CPAP at home, but does not [...] on file Legal Sex Male 1:51 AM PHYTOCHEMISTRY PROFESSOR Gender Identity Not on file Sexual Orientation Not on file Last Filed Vital Signs Vital Sign Reading Time Taken Comments Blood Pressure 122/73 03/03/2024 12:45 PM PHYTOCHEMISTRY PROFESSOR Pulse 94 03/03/2024 12:45 PM PHYTOCHEMISTRY PROFESSOR Temperature 37.6 C (99.7 F) 03/03/2024 6:46 AM PHYTOCHEMISTRY PROFESSOR Respiratory Rate 16 03/03/2024 12:45 PM PHYTOCHEMISTRY PROFESSOR Oxygen Saturation 95% 03/03/2024 12:45 PM PHYTOCHEMISTRY PROFESSOR Inhaled Oxygen Concentration - - Weight 97.1 kg (214 lb) 03/03/2024 6:46 AM PHYTOCHEMISTRY PROFESSOR Height 170.2 cm (5' 7 ) 03/03/2024 6:46 AM PHYTOCHEMISTRY PROFESSOR Body Mass Index 33.52 03/03/2024 6:46 AM PHYTOCHEMISTRY PROFESSOR Plan of Treatment Not on file Goals Goal Patient Goal Type Associated Problems Recent Progress Patient-Stated? Author [facility] No Estelita Ornelas, SARA Note: Pt would like to complete ADLs, ride motorcycle with minimal pain. Medical Devices Implanted Type Area Reception Interviewer Device Identifier Shelf Expiration Date Model / Serial / Lot Other-See Comments Other - see comments Bilatera l: Knee Description:R. Total knee- 2 020 L. Total Knee-2015 Procedures Procedure Name Priority Date/Time Associated Diagnosis Comments EGFR STAT 03/03/2024 7:[address] CHEST ABDOMEN PELVIS WO CONTRAST Schedule Routine, Read Routine (OP Routine) 01/21/2023 11:07 AM CDT HEPATITIS PANEL, ACUTE Routine 06/19/2020 8:11 PM CDT HEMOGLOBIN A1C Add-On 06/12/2020 11:07 AM PHYTOCHEMISTRY PROFESSOR from Last 3 Months or Most Recently Relevant to Health Maintenance Results * (ABNORMAL) eGFR (03/03/2024 7:02 AM PHYTOCHEMISTRY PROFESSOR) eGFR 47(L) >=60 mL/min/1. 73 m2 Comment: [...] last reviewed 2021. Blood 03/03/2024 7:02 AM PHYTOCHEMISTRY PROFESSOR 03/03/2024 7:06 AM PHYTOCHEMISTRY PROFESSOR us Deandre Vasquez DO LAB BLOOD ORDERABLES Final Res ult [facility] [address] Department [place] [address] * CT Chest Abdomen Pelvis WO Contrast (01/21/2023 11:07 AM CDT) Anatomical Region Laterality Modality Body N/A Computed Tomogra phy Arpit Han MD PhD IMG CT PROCEDURES Prudence l Result * Hepatitis panel, acute (06/19/2020 8:11 PM CDT) Hep A IgM Nonreactive Nonreactive [facility] Comment: Interpretive Data: If Hep A IgM Ab is reported as Equivocal, a new sample should be drawn in two weeks for testing. Current interpretive data was last revised on 19. Hep B core IgM Nonreactive Nonreactive [facility] Comment: Interpretive Data If HepB Core IgM Ab is reported as Equivocal, a new sample should be drawn in two weeks for testing. Current interpretive data was last revised on 19. Hep C Ab Nonreactive Nonreactive [facility] Comment: Interpretive Data Nonreactive: Antibodies to [...] last revised on 2019. HepBsAg Nonreactive Nonreactive [facility] Blood specimen (specimen) 06/19/2020 8:11 PM CDT 06/19/2020 8:15 PM CDT us Andres Zuñiga MD LAB MICROBIOLOGY - GENE RAL ORDERABLES Final Result Performing Organization Address [facility] Co de Phone Number [address] Department [place] [address] * (ABNORMAL) Hemoglobin A1c (06/12/2020 11:07 AM PHYTOCHEMISTRY PROFESSOR) Hgb A1C 7.1(H) 4.0 - 5.6 % [facility] Estimated Average Glucose 157 mg/dL [facility] Comment: The ADA recommends reporting an estimated Average Glucose (eAG) with all Hemoglobin A1c results using the equation derived from a study of 507 normal and diabetic adults. Minority populations were underrepresented and children were not included. (Diabetes Care 31:7650-0097, 2008). The eAG is not equivalent to a fasting glucose. Blood specimen (specimen) 06/12/2020 11:07 AM PHYTOCHEMISTRY PROFESSOR 06/12/2020 11:07 AM PHYTOCHEMISTRY PROFESSOR Radha Vail MD LAB BLOOD ORDERABLES Final Res ult Performing Organization Address [facility] Co de Phone Number [address] Department [place] [address] from Last 3 Months or Most Recently Relevant to Health Maintenance Insurance MEDICARE [facility] MEDICARE [employer]UE [employer]OSS MEDICARE SUPPLEMENT MEDICARE [place] MEDICARE SUPPLEMENT Advance Directives For more information, please contact: [phone] * Full Code (Latest Code Status on [...] 12:19 PM 03/03/2018 4:40 PM Care Teams Janitorial Maintenance Worker Relationship Specialty Start Date End Date Dre Zavaleta DO [address] [facility] [address] [place], [place] [id number] PCP - General Internal Medicine 01/14/24 [place] [address] [address] Consulting Physician Pulmonary Disease 06/25/20 Arpit Han MD PhD [address] [place] [address] Radiation Oncologist Radiation Oncology 10/04/21 [place] [address] [place] [address] Referring Physician Pulmonary Disease 10/04/21 Harvey Alxe MD [address] [place] [address] Referring Physician Hematology 02/01/22
--- OUTSIDE RECORDS SUMMARY | 2024-07-15 16:40 | XMS_ITS | Encounter Summary ---
Author Organization [facility] Address [address] [facility] [place] [address] Care Team Providers Care Home Care Manager Rn Name Role Phone Julius Encinas MD Primary Care Provider [phone] Valeriy Lawson MD Unavailable [phone] Encounter Details Date Type Department Care Team (Late st Contact Info) Description 04/13/2014 Therapy Visit [facility]TERNAL [facility] DEPT Unknown, Provider Social History [...] on filedocumented in this encounter Care Teams Home Care Manager Rn Relationship Specialty Start Date End Date Julius Encinas MD [address] [place] [phone] PCP - General 06/10/08 Valeriy Lawson MD [address] [place] [address] 11/13/09 documented as of this encounter
--- OUTSIDE RECORDS SUMMARY | 2024-07-15 16:40 | XMS_ITS | Encounter Summary ---
Author Organization [facility] Address [address] [facility] [place] [address] Care Team Providers Care Duster Tender Name Role Phone Julius Encinas MD Primary Care Provider [phone] Valeriy Lawson MD Unavailable [phone] Encounter Details Date Type Department Care Team (Late st Contact Info) Description 05/04/2013 [facility] Outpatient Visit EXTERNAL NON-[facility] DEPT Valeriy Lawson MD [address] [place] [address] Social History Tobacco Use Types Packs/Day Years [...] on filedocumented in this encounter Care Teams Duster Tender Relationship Specialty Start Date End Date Julius Encinas MD [address] [place] [address] PCP - General 3/6/09 Valeriy Lawson MD [address] [place] [address] 11/13/09 documented as of this encounter
--- OUTSIDE RECORDS SUMMARY | 2024-07-15 16:40 | XMS_ITS | Encounter Summary ---
Author Organization [facility] Address [address] [facility] [place] [address] Care Team Providers Care Oyster Culler Name Role Phone Julius Encinas MD Primary Care Provider [phone] Valeriy Lawson MD Unavailable [phone] Encounter Details Date Type Department Care Team (Late st Contact Info) Description 08/24/2010 [facility] Outpatient Visit [facility] - Family Medicine [id number] [place] [phone] Valeriy Lawson MD [address] [place], [place] [id number] Social History Tobacco Use Types Packs/Day Years [...] on filedocumented in this encounter Care Teams Oyster Culler Relationship Specialty Start Date End Date Julius Encinas MD [address] [place] [address] PCP - General 06/10/08 Valeriy Lawson MD [address] [place] [address] 11/13/09 documented as of this encounter
--- OUTSIDE RECORDS SUMMARY | 2024-07-15 16:40 | XMS_ITS | Clinical Summary ---
Author Organization [facility] Address [address] [place] [address] Care Team Providers Care Delivery Driver/Supervisor Name Role Phone Zia Mercedes MD Unavailable [phone] Arpit patton MD PhD Unavailable [phone] Zia Mercedes MD Unavailable [phone] Harvey Alex MD Unavailable [phone] Dre Zavaleta DO Primary Care Provider [phone] Allergies Active Allergy Reactions Criticality Noted Date [...] on chronic respiratory failure with hypoxi a ([facility]) 06/04/2020 Assessment & Plan (08/09/2021 1:50 PM [...] 06/04/2020 Assessment & Plan (06/04/2020 6:00 PM DELIVERY DRIVER/SUPERVISOR): Mild elevation of AST and ALT most likely due to acute infection. Will monitor while on remdesivir. Respiratory alkalosis 06/04/2020 Assessment & Plan (06/04/2020 6:01 PM DELIVERY DRIVER/SUPERVISOR): Due to hyperventilation from hypoxia on admission. Monitor respiratory function with supplemental oxygen. Chronic obstructive pulmonar y disease with acute exacerbation ([facility]) 06/04/2020 Assessment & Plan (08/09/2021 1:52 PM CDT): Patient on prednisone, symbicort, and albuterol prn at home. - continue home meds - Mucinex DM and Tessalon perles added for cough Assessment & Plan (08/09/2021 1:35 AM CDT): Continue breathing treatments Assessment & Plan (06/04/2020 6:02 PM DELIVERY DRIVER/SUPERVISOR): Mild COPD exacerbation due to COVID-19, breath sounds diminished with mild end expiratory wheezing and a cough productive of small amounts of yellow sputum. Continue steroids for COVID-19 along with home Symbicort and albuterol p.r.n. COVID-19 05/29/2020 Assessment & Plan (06/04/2020 6:04 PM DELIVERY DRIVER/SUPERVISOR): Shortness of breath worsened since initial diagnosis [...] 05/29/2020 Assessment & Plan (06/04/2020 5:59 PM DELIVERY DRIVER/SUPERVISOR): Unable to obtain CTA chest because of allergy to IV contrast, but symptoms are not suggestive of acute the and D-dimer is very slightly above the threshold for normal. Will treat with Lovenox at half therapeutic dose because of COVID-19. Rheumatoid arthritis involvi ng multiple sites with positive rheumatoid factor ([facility]) 05/29/2020 Assessment & Plan (08/09/2021 1:49 PM CDT): Holding Plaquenil and Celebrex. Continue prednisone daily. Assessment & Plan (08/09/2021 1:33 AM CDT): Holding Plaquenil. Continue prednisone daily. Assessment & Plan (06/04/2020 5:57 PM DELIVERY DRIVER/SUPERVISOR): Continue home RA regimen, will need to [...] ordered Assessment & Plan (06/04/2020 5:58 PM DELIVERY DRIVER/SUPERVISOR): Uses CPAP at home, but does not [...] on file Legal Sex Male 1:51 AM DELIVERY DRIVER/SUPERVISOR Gender Identity Not on file Sexual Orientation Not on file Obstetrics History Last Filed Vital Signs Vital Sign Reading Time Taken Comments Blood Pressure 122/73 03/03/2024 12:45 PM DELIVERY DRIVER/SUPERVISOR Pulse 94 03/03/2024 12:45 PM DELIVERY DRIVER/SUPERVISOR Temperature 37.6 C (99.7 F) 03/03/2024 6:46 AM DELIVERY DRIVER/SUPERVISOR Respiratory Rate 16 03/03/2024 12:45 PM DELIVERY DRIVER/SUPERVISOR Oxygen Saturation 95% 03/03/2024 12:45 PM DELIVERY DRIVER/SUPERVISOR Inhaled Oxygen Concentration - - Weight 97.1 kg (214 lb) 03/03/2024 6:46 AM DELIVERY DRIVER/SUPERVISOR Height 170.2 cm (5' 7 ) 03/03/2024 6:46 AM DELIVERY DRIVER/SUPERVISOR Body Mass Index 33.52 03/03/2024 6:46 AM DELIVERY DRIVER/SUPERVISOR Plan of Treatment Health Maintenance Due Date [...] Fall Risk Assessment 08/29/2022 08/29/2021 Influenza Vaccine (Season Ended) 2024 12/07/19 20 eGFR 03/03/2025 03/03/2024, 12/2023, 03/16/2023, Additional history exists Hepatitis C Screening Completed 06/19/2020 Abdominal Aortic Aneurysm (A AA) Screen Completed 01/21/2023, 07/15/2022, 06/27/2017 Goals Goal Patient Goal Type Associated Problems Recent Progress Patient-Stated? Author [facility] No Estelita Ornelas, RN Note: Pt would like to complete ADLs, ride motorcycle with minimal pain. Medical Devices Implanted Type Area Pulpit Operator Device Identifier Shelf Expiration Date Model / Serial / Lot Other-See Comments Other - see comments Mode l: Knee Description:R. Total knee- 2 020 L. Total Knee-2015 Procedures Procedure Name Priority Date/Time Associated Diagnosis Comments EGFR STAT 03/03/2024 7:02 AM DELIVERY DRIVER/SUPERVISOR CT CHEST ABDOMEN PELVIS WO CONTRAST Schedule Routine, Read Routine (OP Routine) 01/21/2023 11:07 AM CDT HEPATITIS PANEL, ACUTE Routine 06/19/2020 8:11 PM CDT HEMOGLOBIN A1C Add-On 06/12/2020 11:07 AM DELIVERY DRIVER/SUPERVISOR from Last 3 Months or Most Recently Relevant to Health Maintenance Results * (ABNORMAL) eGFR (03/03/2024 7:02 AM DELIVERY DRIVER/SUPERVISOR) eGFR 47(L) >=60 mL/min/1. 73 m2 Comment: [...] Inclusion of Race in Diagnosing Kidney Disease, EPHRAIMSN 2020). The CKD-EPI equation should not be used for patients with unstable renal function and has not been validated in children and those over 70. Current interpretive data was last reviewed 2021. Blood 03/03/2024 7:02 AM DELIVERY DRIVER/SUPERVISOR 03/03/2024 7:06 AM DELIVERY DRIVER/SUPERVISOR Deandre Vasquez DO LAB BLOOD ORDERABLES Final Res ult Performing Organization Address City/[facility]/ZIP Co de Phone Number [address] [address] [address] [employer] [place], [place] [id number] * CT Chest Abdomen Pelvis WO Contrast (01/21/2023 11:07 AM CDT) Anatomical Region Laterality Modality Body N/A Computed Tomogra phy Arpit Han MD PhD IMG CT PROCEDURES Prudence l Result * Hepatitis panel, acute (06/19/2020 8:11 PM CDT) Hep A IgM Nonreactive Nonreactive [facility] Comment: Interpretive Data: If Hep A IgM Ab is reported as Equivocal, a new sample should be drawn in two weeks for testing. Current interpretive data was last revised on 19. Hep B core IgM Nonreactive Nonreactive [facility] Comment: Interpretive Data If HepB Core IgM Ab is reported as Equivocal, a new sample should be drawn in two weeks for testing. Current interpretive data was last revised on 19. Hep C Ab Nonreactive Nonreactive [facility] Comment: Interpretive Data Nonreactive: Antibodies to [...] last revised on 2019. HepBsAg Nonreactive Nonreactive [facility] Blood specimen (specimen) 06/19/2020 8:11 PM CDT 06/19/2020 8:15 PM CDT Andres Zuñiga MD LAB MICROBIOLOGY - GENE RAL ORDERABLES Final Result Performing Organization Address City/[facility]/ZIP Co de Phone Number [address] [phone] [address] [facility] [email or web address] [address] * (ABNORMAL) Hemoglobin A1c (06/12/2020 11:07 AM DELIVERY DRIVER/SUPERVISOR) Hgb A1C 7.1(H) 4.0 - 5.6 % [address] Estimated Average Glucose 157 mg/dL [address] Comment: The ADA recommends reporting an estimated Average Glucose (eAG) with all Hemoglobin A1c results using the equation derived from a study of 507 normal and diabetic adults. Minority populations were underrepresented and children were not included. (Diabetes Care 31:5970-5567, 2008). The eAG is not equivalent to a fasting glucose. Blood specimen (specimen) 06/12/2020 11:07 AM DELIVERY DRIVER/SUPERVISOR 06/12/2020 11:07 AM DELIVERY DRIVER/SUPERVISOR [facility] MD LAB BLOOD ORDERABLES Final Res ult [address] [address] [address] Department [place] [address] from Last 3 Months or Most Recently Relevant to Health Maintenance Insurance MEDICARE [facility] MEDICARE [facility] MEDICARE SUPPLEMENT MEDICARE [facility] MEDICARE SUPPLEMENT Advance Directives For more information, please contact: [phone] * Full Code (Latest Code Status on [...] 12:19 PM 03/03/2018 4:40 PM Care Teams Delivery Driver/Supervisor Relationship Specialty Start Date End Date Dre Zavaleta DO [address] [place] [address] [address] [place] [address] PCP - General Internal Medicine 01/14/24 [place] [address] [address] Consulting Physician Pulmonary Disease 06/25/20 Arpit Han MD PhD [address] [place] [address] Radiation Oncologist Radiation Oncology 10/04/21 [place] [address] [address] [address] Referring Physician Pulmonary Disease 10/04/21 Harvey Alex MD [address] [place] [id number] Referring Physician Hematology 02/01/22
--- OUTSIDE RECORDS SUMMARY | 2024-07-15 16:40 | XMS_ITS | Encounter Summary ---
Author Organization [facility] Health Address [address] [facility] [place] [address] Care Team Providers Care Curator Of Collections Name Role Phone Julius Encinas MD Primary Care Provider [phone] Valeriy Lawson MD Unavailable Encounter Details Date Type Department Care Team (Late st Contact Info) Description 09/23/2013 [facility] Outpatient Visit EXTERNAL NON-[facility] DEPT Valeriy Lawson MD [address] [place] [id number] Social History Tobacco Use Types Packs/Day Years [...] on filedocumented in this encounter Care Teams Curator Of Collections Relationship Specialty Start Date End Date Julius Encinas MD [address] [place] [address] PCP - General 3/6/09 Valeriy Lawson MD [address] [place] [address] 11/13/09 documented as of this encounter
--- OUTSIDE RECORDS SUMMARY | 2024-07-15 16:40 | XMS_ITS | Clinical Summary ---
Author Organization [facility] Address [address] [place] [address] Care Team Providers Care Pilot Teacher Name Role Phone Unavailable Primary Care Provider [...]
--- OUTSIDE RECORDS SUMMARY | 2024-07-15 16:40 | XMS_ITS | Clinical Summary ---
Author Organization [facility] Address [address] [place] [address] Care Team Providers Care Ivory Carver Name Role Phone Km Gipson MD Primary Care Provider [phone] Allergies Active Allergy Reactions Criticality Noted Date [...] take 0.5 tablet PO daily 1 Active [place]-3 Fatty Acids 1,000 mg Capsule Take 1,000 [...] H. Active fluticasone propionate (FLONASE) 50 mcg/spray [place], Suspension nasal inhaler Administer 2 Sprays in [...] Smoking Tobacco: Former Cigarettes 2 [phone] 1 [phone] Tobacco Cessation:Counseling Given: Not Answered Alcohol Use Standard Drinks/Week Comments Yes 0 (1 standard drink = 0.6 oz pur e alcohol) Sex and Gender Information Value Date Recorded Sex Assigned at Not on file Legal Sex Male 10:35 AM ARBORIST Gender Identity Not on file Sexual Orientation Not on file Last Filed Vital Signs Vital Sign Reading Time Taken Comments Blood Pressure 131/71 02/13/2024 9:24 AM ARBORIST Pulse 100 02/13/2024 9:24 AM ARBORIST Temperature 36.6 C (97.8 F) 02/13/2024 9:24 AM ARBORIST Respiratory Rate 16 02/13/2024 9:24 AM ARBORIST Oxygen Saturation 93% 02/13/2024 9:24 AM ARBORIST Inhaled Oxygen Concentration - - Weight 97.4 kg (214 lb 12.8 oz) 02/13/2024 9:24 AM ARBORIST Height 175.3 cm (5' 9 ) 12/20/2021 9:31 AM CDT Body Mass Index 31.72 12/20/2021 9:31 AM CDT Plan of Treatment Upcoming Encounters Date Type Department Care Team (Late st Contact Info) Description 08/11/2024 10:00 AM CDT Office Visit [facility] Oncology and Hematology - [place] [address] [place] [address] Harvey Alex MD [address] [facility] [address] [place] [address] Health Maintenance Due Date Last [...] Discontinued Insurance MEDICARE PART A AND B [facility] SUPP MEDICARE PART A AND B BCBS SUPP Care Teams Ivory Carver Relationship Specialty Start Date End Date Km Gipson MD [address] [place] [address] PCP - General Family Practice 01/28/23
--- OUTSIDE RECORDS SUMMARY | 2024-07-15 16:40 | XMS_ITS | Encounter Summary ---
Author Organization [facility] Address [address] [place] [address] Care Team Providers Care Lens Assorter Name Role Phone Julius Encinas MD Primary Care Provider [phone] Valeriy Lawson MD Unavailable [phone] Encounter Details Date Type Department Care Team (Late st Contact Info) Description 02/11/2014 Therapy Visit EXTERNAL NON-[facility] DEPT Valeriy Lawson MD [address] [place] [id number] Social History Tobacco Use Types Packs/Day Years [...] on filedocumented in this encounter Care Teams Lens Assorter Relationship Specialty Start Date End Date Julius Encinas MD [address] [place] [address] PCP - General 06/10/08 Valeriy Lawson MD [address] [place] [address] 11/13/09 documented as of this encounter
--- OUTSIDE RECORDS SUMMARY | 2024-07-15 16:40 | XMS_ITS | Encounter Summary ---
Author Organization [facility] Health Address [address] [facility] [place] [address] Care Team Providers Care Wheel And Axle Inspector Name Role Phone Julius Encinas MD Primary Care Provider [phone] Valeriy Lawson MD Unavailable [phone] Encounter Details Date Type Department Care Team (Late st Contact Info) Description 02/10/2014 [facility] Outpatient Visit EXTERNAL NON-[facility] DEPT Valeriy Lawson MD [address] [place] [address] Social History Tobacco Use Types Packs/Day Years [...] on filedocumented in this encounter Care Teams Wheel And Axle Inspector Relationship Specialty Start Date End Date Julius Encinas MD [address] [place] [address] PCP - General 3/6/09 Valeriy Lawson MD [address] [place] [address] 11/13/09 documented as of this encounter
--- OUTSIDE RECORDS SUMMARY | 2024-07-15 16:40 | XMS_ITS | Clinical Summary ---
Author Organization [facility] Address [address] [facility] [place] [address] Care Team Providers Care Pulp House Supervisor Name Role Phone Julius Encinas MD Primary Care Provider [phone] Valeriy Lawson MD Unavailable [phone] Source Comments [facility],non-owned Affiliates and Associated Physician Practices is amultiple site organization consisting of ambulatory clinics and hospital sitesin [place], [place], [place] and [place]. This disclosure is being madepursuant to the Care Everywhere program and may not contain all information available regarding this patient. Last updated 17.[facility] Allergies Active Allergy Reactions Criticality Noted Date [...] PO Take by mouth daily. Acti ve [place]-3 Fatty Acids (FISH OIL) 1200 MG CAPS [...] (08/19/2011): Start date 1999 [facility]oid [facility] with negative rheumatoid factor 05/25/2008 Overview [...] age to complete this topic Care Teams Pulp House Supervisor Relationship Specialty Start Date End Date Julius Encinas MD [address] [place] [address] PCP - General 06/10/08 Valeriy Lawson MD [address] [place] [address] 8/9/10
[2024-07-15] MEDS: ONDANSETRON INJ 4 MG/2 ML VIAL IV PUSH (17:39)
[2024-07-15] MEDS: HYDROmorphone HCL INJ (*CRX) 1 MG/ML SYR 0.5 MG IV PUSH (17:39)
[2024-07-15] MEDS: POTASSIUM CHLORIDE 20 MEQ PACKET (FOR LIQUID) 40 MEQ PO (17:39)
[2024-07-15] MEDS: SODIUM CHLORIDE 0.9% IV 1,000 ML 999 ML IV CONT ×2 (17:40→17:41)
[2024-07-15] MEDS: SODIUM CHLORIDE 0.9% IV 900 ML 999 ML IV CONT (17:41)
[2024-07-15 18:04] LABS: Add Urine Microscopic? YES; Appearance Urine Clear (Clear); Bacteria Urine None Seen /hpf; Bilirubin Urine Negative (Negative); Blood Urine Negative (Negative); Color Urine Yellow (Yellow); Glucose Urine UA Negative (Negative); Ketones Urine Trace mg/dL (Negative); Leukocyte Esterase Ur Trace LEU/UL (Negative); Nitrate Urine Negative (Negative); Protein Urine Trace mg/dL (Negative); RBC Urine 0-2 /hpf (0-2); Specific Grav Ur 1.018 (1.001-1.035); Squamous Epithelial Cell Urine None Seen /hpf (Few); Urobilinogen Urine 0.2 mg/dL (<2.0); WBC Urine 0-5 /hpf (0-3)
--- NOTE | 2024-07-15 19:10 | ED_ITS ---
HPI - General Adult General Chief complaint: Weakness Stated complaint: Diarrhea, not feeling well, no energy Time Seen by Provider: 07/15/24 16:30 History of Present Illness HPI narrative: This is a 78-year-old male presenting with 10 days of diarrhea. Symptoms started on July 06. He has been having yellow foul-smelling diarrhea that is associated with left lower quadrant abdominal pain. He does have a history of diverticulitis and was treated with Augmentin and Flagyl by his primary care physician with no improvement in his symptoms. He has also had decreased oral intake at this time at this point feels very weak. He has had chills but no recorded fevers. Denies chest pain and difficulty breathing. He denies urinary symptoms. No history of C diff. Related Data Home Medications ?Medication ?Instructions ?Recorded ?Confirmed ?Last Taken ?Type hydrocodone 10 mg-acetaminophen 1 tablet PO Q6H PRN Pain 02/21/20 01/29/24 Unknown History 325 mg tablet tamsulosin 0.4 mg capsule 0.4 mg PO QHS 08/01/20 01/29/24 Unknown History aspirin 81 mg tablet,delayed 81 mg PO DAILY 06/25/22 01/29/24 Unknown History release (Aspir-) magnesium 250 mg tablet 400 mg PO DAILY 06/25/22 01/29/24 Unknown History budesonide 160 mcg-glycopyr 9 2 inh inhalation BID 07/25/22 01/29/24 Unknown History mcg-formot 4.8 mcg/actuation HFA inhaler (Breztri Aerosphere) albuterol sulfate 90 mcg/actuation 2 puff inhalation Q4-6H PRN 03/12/23 01/29/24 Unknown History aerosol inhaler Shortness Of Breath oxygen-air delivery systems 04/10/23 01/29/24 Unknown History hydroxychloroquine 200 mg tablet 200 mg PO DAILY 06/23/23 01/29/24 Unknown History celecoxib 200 mg capsule 200 mg PO DAILY 10/27/23 01/29/24 Unknown History prednisone 2.5 mg tablet 10 mg PO DAILY 01/29/24 01/29/24 Unknown History Allergies Allergy/AdvReac Type Severity Reaction Status Date / Time Iodinated Contrast Media Allergy Severe Hives Verified 07/15/24 14:24 infliximab (From Remicade) AdvReac Intermediate Rash Verified 07/15/24 14:24 [facility] Past Medical History Medical History BMI 35.0-35.9,adult Colon polyp Lung cancer Influenza A COVID-19 Shingles Kidney stones GERD (gastroesophageal reflux disease) History of rectal polyps Gastrointestinal ulcer Diverticulitis Diverticulosis Emphysema of lung Cataracts, bilateral Obesity Hypercholesterolemia Benign essential hypertension Benign prostatic hyperplasia with lower urinary tract symptoms Chronic low back pain Chronic obstructive pulmonary disease, unspecified Elevated LFTs Follicular lymphoma grade II, unspecified site Lung nodule Mixed hyperlipidemia Obstructive sleep apnea (adult) (pediatric) Rheumatoid arthritis involving multiple sites Splenomegaly Surgical History Surgical History Hx of cholecystectomy History of right knee joint replacement Hx of cataract surgery History of back surgery Family History Family History Mother Family history of osteoarthritis Family history of congestive heart failure, Onset Age: 90 Family history of malignant neoplasm of breast in first degree relative Sibling Carcinoma of colon, Onset Age: 66 Family history of lupus erythematosus, Onset Age: 21 Family history of primary malignant neoplasm of liver Father Acute myocardial infarction Hypertension, Onset Age: 68 Family history of cardiovascular disease, Onset Age: 68 Social History Social History Smoking packs per day: 2 Smoking cigarettes per day: 40.0 Years smoked: 36 Smoking pack-years: 72.00 Smoking status: Former smoker Tobacco type: cigarettes Second hand tobacco smoke exposure: Yes Smoking end date: 04/07/86 Alcohol intake: current Substance use: never Substance use type: does not use Do You Feel Safe in your Home?: Yes Lack of Transportation: No Lack of Food: Never True Current Housing: I Have Housing Concerned About Future Housing: No Difficulty Paying Gas/Electric Bills: No Difficulty Paying for Meds: No Currently Unemployed: No Education: High School Diploma/GED Living arrangements: with family Occupation/Education: retired 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 Gender identity (if verbalized by the patient): Male Sexual Orientation (if Verbalized by the Patient): Straight or Heterosexual Spiritual care concerns: No Agree to blood products: Yes Exam 2 Narrative: APPEARANCE: No apparent distress. Head: atraumatic. EYES: EOMI, NOSE: Atraumatic NECK: Trachea midline RESPIRATORY: No increased rate of breathing clear auscultation CARDIOVASCULAR: Tachycardic, no peripheral edema ABDOMINAL: Tender to palpation left lower quadrant without guarding or rebound, no CVA tenderness MUSCULOSKELETAl: No obvious deformities NEURO: Alert. Moving 4/4 extremities SKIN:: Warm, dry. Normal color PSYCHIATRIC: Normal affect Course Vital Signs Vital signs: Vital Signs Temperature 97.9 F 07/15/24 14:30 Pulse Rate 113 H 07/15/24 14:30 Respiratory Rate 18 07/15/24 14:30 Blood Pressure 139/63 07/15/24 14:30 Pulse Oximetry 98 07/15/24 14:30 Oxygen Delivery Nasal Cannula 07/15/24 14:30 Oxygen Flow Rate 2 07/15/24 14:30 Temperature 97.9 F 07/15/24 14:30 Pulse Rate 72 07/15/24 18:45 Respiratory Rate 16 07/15/24 18:45 Blood Pressure 123/50 L 07/15/24 18:45 Pulse Oximetry 97 07/15/24 18:45 Oxygen Delivery Nasal Cannula 07/15/24 15:43 Oxygen Flow Rate 1 07/15/24 15:43 Medical Decision Making [facility] Narrative Medical decision making narrative: -Course: 78-year-old male presenting with 10 days of diarrhea and generalized weakness. Patient given 3 L of normal saline for dehydration. Patient has left lower quadrant tenderness on exam. CT abdomen pelvis showed diverticulosis but no evidence of diverticulitis although the patient has already completed a course of antibiotics. Laboratory studies given for hypokalemia which has been repleted. C diff antigen has been ordered. Unclear etiology the patient has persistent diarrhea. He did start leflunomide 1 month ago which can cause diarrhea as a side effect. Regardless patient is still very weak likely due to dehydration. He will be admitted hospital for IV fluids and PT OT eval. -DDX includes but is not limited to: Colitis, diverticulitis, viral syndrome, medication side effect, C diff Vital Signs Vital Signs: Vital Signs Temperature 97.9 F 07/15/24 14:30 Pulse Rate 113 H 07/15/24 14:30 Respiratory Rate 18 07/15/24 14:30 Blood Pressure 139/63 07/15/24 14:30 Pulse Oximetry 98 07/15/24 14:30 Oxygen Delivery Nasal Cannula 07/15/24 14:30 Oxygen Flow Rate 2 07/15/24 14:30 Temperature 97.9 F 07/15/24 14:30 Pulse Rate 72 07/15/24 18:45 Respiratory Rate 16 07/15/24 18:45 Blood Pressure 123/50 L 07/15/24 18:45 Pulse Oximetry 97 07/15/24 18:45 Oxygen Delivery Nasal Cannula 07/15/24 15:43 Oxygen Flow Rate 1 07/15/24 15:43 Lab Data 07/15/24 15:37 07/15/24 15:37 Labs: Lab Results 07/15/24 07/15/24 07/15/24 Range/Units 15:37 15:41 17:50 WBC 8.6 (4.5-10.0) K/mm3 RBC 4.50 L (4.6-6.20) M/mm3 Hgb 11.0 L (14.0-18.0) g/dL Hct 35.6 L (42.0-52.0) % MCV 79.1 L (80-100) fl MCH 24.4 L (26-34) pg MCHC 30.9 L (32-36) g/dl RDW 17.2 H (11.5-14.5) % Plt Count 162 (150-375) k/mm3 MPV 9.9 (7.4-10.4) fl Immature Gran % (Auto) 0.8 H (0-0.5) % Neut % (Auto) 72.5 (45.5-73.1) % Lymph % (Auto) 10.7 L (18.3-44.2) % [place] % (Auto) 12.3 H (2.6-8.5) % Eos % (Auto) 3.0 (0-4.4) % Baso % (Auto) 0.7 (0.2-1.2) % Lymph # (Auto) 0.92 (0.9-3.2) K/mm3 [place] # (Auto) 1.1 H (0.1-0.6) K/mm3 Eos # (Auto) 0.3 (0-0.3) K/mm3 Baso # (Auto) 0.1 (0.0-0.1) K/mm3 Abs Immat Gran (auto) 0.07 H (0.00-0.031) K/mm3 Absolute Neuts (auto) 6.2 (1.3-6.7) K/mm3 Absolute Nucleated RBC 0.000 (0.0-0.012) K/mm3 Nucleated RBC % 0.0 (0.0-0.2) % Sodium 134 L (137-145) mmol/L Potassium 3.3 L (3.4-5.0) mmol/L Chloride 101 (98-107) mmol/L Carbon Dioxide 25 (22-30) mmol/L Anion Gap 8 (4-12) mmol/L BUN 24 H (9-20) mg/dL Creatinine 1.76 H (0.7-1.3) mg/dL Estim Creat Clear Calc 34 ml/min Estimated GFR 38 L (59 - ) Glucose 136 H (65-110) mg/dL Calcium 9.2 (8.4-10.2) mg/dL Total Bilirubin 0.4 (0.2-1.3) mg/dL AST 48 (17-59) U/L ALT 32 (6-50) U/L Alkaline Phosphatase 197 H (38-126) U/L Total Protein 7.0 (6.3-8.2) g/dL Albumin 3.4 L (3.5-5.1) g/dL Urine Color Yellow (Yellow) Urine Appearance Clear (Clear) Urine pH 5.0 (5.0-9.0) Ur Specific [place] 1.018 (1.001-1.035) Urine Protein Trace (Negative) mg/dL Urine Glucose (UA) Negative (Negative) mg/dL Urine Ketones Trace H (Negative) mg/dL Ur Blood (Man) Negative (Negative) Urine Nitrate Negative (Negative) Urine Bilirubin Negative (Negative) Urine Urobilinogen 0.2 (<2.0) mg/dL Leukocyte Esterase Rfl Trace H (Negative) CRISSY/UL Urine RBC 0-2 (0-2) /hpf Urine WBC 0-5 (0-3) /hpf Ur Squamous Epith Cells None seen (Few) /hpf Urine Bacteria None seen /hpf Urine Casts 3-5 Influenza A (RT-PCR) Negative (Negative) Influenza B (RT-PCR) Negative (Negative) RSV (RT-PCR) Negative (Negative) SARS-CoV-2 RNA (RT-PCR) Negative (Negative) Discharge Plan Discharge Clinical Impression: Diarrhea, Dehydration, Weakness Patient Disposition: Still a Patient Condition: Stable Instructions: Dehydration (DC) Patient Language: Danish Prescriptions: No Action hydrocodone-acetaminophen 10-325 mg tablet 1 tablet PO Q6H PRN (Reason: Pain) tamsulosin 0.4 mg capsule 0.4 mg PO QHS aspirin [Aspir-81] 81 mg tablet,delayed release (DR/EC) 81 mg PO DAILY (DME) oxygen-air delivery systems Device See Rx Instructions .Route Patient Comments: pt states he is on 2 liters every night. Rx Instructions: As directed hyoscyamine sulfate 0.125 mg tablet,disintegrating 0.125 mg PO QID PRN (Reason: esophageal spasms) Qty: 45 0RF azelastine 137 mcg (0.1 %) aerosol,spray 137 mcg intranasal Q12H Qty: 30 5RF Rx Instructions: administer into each nostril hydroxychloroquine 200 mg tablet 200 mg PO DAILY fluticasone propionate 50 mcg/actuation spray,suspension See Rx Instructions .ROUTE .COMPLEX Qty: 48 3RF Dose Instruction: USE 2 SPRAYS IN EACH NOSTRIL DAILY NEEDED FOR CONGESTION Rx Instructions: USE 2 SPRAYS IN EACH NOSTRIL DAILY NEEDED FOR CONGESTION magnesium 250 mg tablet 400 mg PO DAILY Breztri Aerosphere 160-9-4.8 mcg/actuation Hfa Aerosol Inhaler 2 inh INHALATION BID albuterol sulfate 90 mcg/actuation HFA aerosol inhaler 2 puff INHALATION Q4-6H PRN (Reason: Shortness Of Breath) prednisone 2.5 mg tablet 10 mg PO DAILY Rx Instructions: TAKE 1 TABLET THREE TIMES DAILY celecoxib 200 mg capsule 200 mg PO DAILY (DME) blood-glucose meter [Accu-Chek Guide Glucose Meter] Misc See Rx Instructions .Route Qty: 1 0RF Rx Instructions: test 2 times a day. (DME) lancets [Accu-Chek Multiclix Lancet] Misc See Rx Instructions .Route Qty: 200 1RF Rx Instructions: test 2 times a day (DME) Accu-Chek Guide test strips Strip See Rx Instructions .Route Qty: 100 2RF Rx Instructions: test 2 time a day trazodone 50 mg tablet See Rx Instructions .ROUTE .COMPLEX Qty: 270 1RF Dose Instruction: TAKE 3 TABLETS AT BEDTIME NEEDED FOR SLEEP Rx Instructions: TAKE 3 TABLETS AT BEDTIME NEEDED FOR SLEEP metformin 500 mg tablet See Rx Instructions .ROUTE .COMPLEX Qty: 180 3RF Dose Instruction: TAKE 2 TABLETS EVERY DAY Rx Instructions: TAKE 2 TABLETS EVERY DAY famotidine 20 mg tablet See Rx Instructions .ROUTE .COMPLEX Qty: 90 1RF Dose Instruction: TAKE 1 TABLET EVERY DAY Rx Instructions: TAKE 1 TABLET EVERY DAY diltiazem HCl 240 mg capsule,extended release 24hr 240 mg PO DAILY Qty: 90 1RF omeprazole 40 mg capsule,delayed release(DR/EC) 40 mg PO DAILY Qty: 90 1RF Rx Instructions: TAKE 1 CAPSULE EVERY DAY triamterene-hydrochlorothiazid 37.5-25 mg tablet 1 tablet PO QAM Qty: 90 1RF pravastatin 20 mg tablet 20 mg PO HS Qty: 90 1RF Rx Instructions: TAKE 1 TABLET AT BEDTIME mupirocin [Centany] 2 % ointment 1 applic topical BID Qty: 22 2RF Follow-up/Referrals: Valeriy Marte APRN [Primary Care Provider] -
[2024-07-15 20:02] LABS: Lactic Acid Reflex 2.2 mmol/L (0.7-2.0)
[2024-07-15 21:42] LABS: Reflex Lactic Acid Yes or No Add Lactic
--- NOTE | 2024-07-15 22:42 | ADMGEN ---
This patient, Dilan Weaver, was admitted to [facility] Surg Room 327-01. Patient/family oriented to hospital policies and general routines including ID bracelet, bed and alarms, visiting hours, pain management, procedures, bathroom and other care routines, personal items, smoking policy, room service/diet, and visiting hours. Information on how to activate the Rapid Response Team has been discussed. Patient/Family are encouraged to report perceived risks to care and to ask questions if they do not understand what they are told or what they should do.
[2024-07-15 23:02] LABS: Lactic Acid 2.5 mmol/L (0.7-2.0)
[2024-07-16 00:15] VITALS: PULSE 63; O2SAT 96
[2024-07-16 03:04] VITALS: PULSE 56; O2SAT 92
[2024-07-16 06:00] VITALS: BP 112/44; PULSE 61; RESP 16; TEMP 36.3; O2SAT 95
[2024-07-16 08:22] LABS: Alanine Aminotransferase 26 U/L (6-50); Albumin Level 2.7 g/dL (3.5-5.1); Alkaline Phosphatase 133 U/L (38-126); Anion Gap 4 mmol/L (4-12); Aspartate Amino Transferase 37 U/L (17-59); Bilirubin,Total 0.4 mg/dL (0.2-1.3); Blood Urea Nitrogen 20 mg/dL (9-20); Calcium 8.2 mg/dL (8.4-10.2); Carbon Dioxide 25 mmol/L (22-30); Chloride 107 mmol/L (98-107); Estimated CRCL calculation 42 ml/min; Estimated Glomerular Filt Rate 47; Glucose 84 mg/dL (65-110); Potassium 3.9 mmol/L (3.4-5.0); Sodium 136 mmol/L (137-145)
[2024-07-16 08:38] LABS: Basophils Absolute Auto 0.1 K/mm3 (0.0-0.1); Basophils Percent Auto 0.8 % (0.2-1.2); Eosinophils Absolute Auto 0.3 K/mm3 (0-0.3); Eosinophils Percent Auto 3.7 % (0-4.4); Hematocrit 30.4 % (42.0-52.0); Hemoglobin 9.2 g/dL (14.0-18.0); Immature Granulocyte Absolute 0.15 K/mm3 (0.00-0.031); Immature Granulocyte Percent A 2.1 % (0-0.5); Lymphocytes Absolute Auto 1.18 K/mm3 (0.9-3.2); Lymphocytes Percent Auto 16.6 % (18.3-44.2); Mean Corpuscular HGB Conc 30.3 g/dl (32-36); Mean Corpuscular Hemoglobin 24.5 pg (26-34); Mean Corpuscular Volume 80.9 fl (80-100); Mean Platelet Volume 10.4 fl (7.4-10.4); Monocytes Absolute Auto 0.7 K/mm3 (0.1-0.6); Monocytes Percent Auto 10.3 % (2.6-8.5); Neutrophils Absolute Auto 4.7 K/mm3 (1.3-6.7); Neutrophils Percent Auto 66.5 % (45.5-73.1); Platelet Count Result 142 k/mm3 (150-375); Red Blood Count 3.76 M/mm3 (4.6-6.20); Red Cell Distribution Width 17.4 % (11.5-14.5); White Blood Count 7.1 K/mm3 (4.5-10.0)
[2024-07-16 08:40] LABS: Toxigenic C. Diff NEGATIVE (NEGATIVE)
[2024-07-16 09:25] VITALS: O2SAT 97
[2024-07-16 09:30] VITALS: O2SAT 97
--- NOTE | 2024-07-16 10:06 | P.HP_ITS ---
H&P: HPI History of Present Illness Date/Time: 07/16/24 10:06 Chief Complaint: Weakness, diarrhea Narrative: Dilan Weaver is a 78-year-old male with a past medical history of COPD, HTN, BENIGNO, Rheumatoid Arthritis, Diverticulosis, rectal polyps, hypercholesterolemia, and lung cancer who presented to the ED with complaints of diarrhea for the past month, which worsened over the past week. He recently started taking Leflunomide 1 month ago for arthritis and states that he has had multiple loose stools a day since initiating this medication. He reports having several stools throughout the day that progresses from formed to loose by the end of the day. He reports progressive worsening of these symptoms over the past week with progressive worsening generalized weakness. He also endorses left upper+lower abdominal pain that started yesterday. He describes it as dull, intermittent in nature, worsened by palpation and movement and relieved by rest. He was seen by his PCP for this issue about 1 week ago and was given a course of Augmentin and Flagyl and completed this course yesterday. He states that his symptoms felt as though they were improving last night and at this time, he states that his abdominal pain has improved and has not had a bowel movement this morning. He denies any sick contacts, recent travel, new foods, ingestion of raw/uncooked meat He received 3L normal saline in the ED for dehydration. Viral panel negative for Influenza A/B, RSV, and COVID. C diff PCR negative. In ED: WBC 8.6, RBC 4.5, Hgb 11.0, Hct 35.6, Plt count 162, Na 134, K 3.3, Cl 101, Anion Gap 8, BUN 24, Cr 1.76, eGFR 38, Ca 9.2, AST 48, ALT 32, Alk Phosphatase 197, Albumin 3.4. Chest XR showed Left basilar atelectasis versus pneumonia. Left midzone subsegmental atelectasis versus fluid in a fissure. CT abdomen/Pelvis showed No evidence of appendicitis, diverticulitis or intestinal obstruction. Slightly thickened wall of the urinary bladder. Evaluation for cystitis advised. EKG showed Sinus rhythm with RBBB, no significant changes when compared to ECG on 04/15/2024. Urinalysis showed trace Ketones and trade Leukocyte Esterase but was otherwise normal. Pt does not have any urinary complaints. Upon examination, he states that he feels as though over the past day that his stools have been more solid than they have been over the past week. Plan to admit for nausea, diarrhea and weakness. Review of Systems Review of Systems: All systems reviewed & are unremarkable except as noted in HPI and below PMFSH Past Medical History Medical History BMI 35.0-35.9,adult Colon polyp Lung cancer Influenza A COVID-19 Shingles Kidney stones GERD (gastroesophageal reflux disease) History of rectal polyps Gastrointestinal ulcer Diverticulitis Diverticulosis Emphysema of lung Cataracts, bilateral Obesity Hypercholesterolemia Benign essential hypertension Benign prostatic hyperplasia with lower urinary tract symptoms Chronic low back pain Chronic obstructive pulmonary disease, unspecified Elevated LFTs Follicular lymphoma grade II, unspecified site Lung nodule Mixed hyperlipidemia Obstructive sleep apnea (adult) (pediatric) Rheumatoid arthritis involving multiple sites Splenomegaly Surgical History Surgical History Hx of cholecystectomy History of right knee joint replacement Hx of cataract surgery History of back surgery Family History Family History Mother Family history of osteoarthritis Family history of congestive heart failure, Onset Age: 90 Family history of malignant neoplasm of breast in first degree relative Sibling Carcinoma of colon, Onset Age: 66 Family history of lupus erythematosus, Onset Age: 21 Family history of primary malignant neoplasm of liver Father Acute myocardial infarction Hypertension, Onset Age: 68 Family history of cardiovascular disease, Onset Age: 68 Social History Social History Smoking packs per day: 2 Smoking cigarettes per day: 40.0 Years smoked: 40 Smoking pack-years: 80.00 Smoking status: Former smoker Tobacco type: cigarettes Second hand tobacco smoke exposure: No Smoking end date: 07/07/99 Alcohol intake: never Substance use: never Substance use type: does not use Do You Feel Safe in your Home?: Yes Lack of Transportation: YES Lack of Food: Never True Current Housing: I Have Housing Concerned About Future Housing: No Difficulty Paying Gas/Electric Bills: No Difficulty Paying for Meds: No Currently Unemployed: No Education: High School Diploma/GED Difficulty w/ Childcare or Family Care: No Living arrangements: with family Occupation/Education: retired 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 Gender identity (if verbalized by the patient): Male Sexual Orientation (if Verbalized by the Patient): Straight or Heterosexual Spiritual care concerns: No Agree to blood products: Yes Meds Home Medications and Allergies Home Medications ?Medication ?Instructions ?Recorded ?Confirmed ?Type hydrocodone 10 mg-acetaminophen 1 tablet PO Q6H PRN Pain 02/21/20 07/15/24 History 325 mg tablet tamsulosin 0.4 mg capsule 0.4 mg PO QHS 08/01/20 07/15/24 History blood-glucose meter (Accu-Chek #1 ea 08/04/20 07/15/24 Rx Guide Glucose Meter) lancets (Accu-Chek Multiclix #200 ea 08/04/20 07/15/24 Rx Lancet) blood sugar diagnostic (Accu-Chek #100 ea 11/06/20 07/15/24 Rx Guide test strips) aspirin 81 mg tablet,delayed 81 mg PO DAILY 06/25/22 07/15/24 History release (Aspir-) magnesium 250 mg tablet 400 mg PO DAILY 06/25/22 07/15/24 History budesonide 160 mcg-glycopyr 9 2 inh inhalation BID 07/25/22 07/15/24 History mcg-formot 4.8 mcg/actuation HFA inhaler (Breztri Aerosphere) albuterol sulfate 90 mcg/actuation 2 puff inhalation Q4-6H PRN 03/12/23 07/15/24 History aerosol inhaler Shortness Of Breath azelastine 137 mcg (0.1 %) nasal 137 mcg (0.137 mL) intranasal Q12H 04/10/23 07/15/24 Rx spray #30 mL hyoscyamine sulfate 0.125 mg 0.125 mg PO QID PRN esophageal 04/10/23 07/15/24 Rx disintegrating tablet spasms #45 tabs oxygen-air delivery systems 04/10/23 07/15/24 History trazodone 50 mg tablet See Rx Instructions .Route 05/23/23 07/15/24 Rx .COMPLEX #270 tabs hydroxychloroquine 200 mg tablet 200 mg PO DAILY 06/23/23 07/15/24 History celecoxib 200 mg capsule 200 mg PO DAILY 10/27/23 07/15/24 History prednisone 2.5 mg tablet 10 mg PO DAILY 01/29/24 07/15/24 History fluticasone propionate 50 See Rx Instructions .Route 04/28/24 07/15/24 Rx mcg/actuation nasal .COMPLEX #48 grams spray,suspension diltiazem HCl 240 mg capsule,24 240 mg PO DAILY #90 caps 05/05/24 07/15/24 Rx hr,extended release famotidine 20 mg tablet See Rx Instructions .Route 05/05/24 07/15/24 Rx .COMPLEX #90 tabs omeprazole 40 mg capsule,delayed 40 mg PO DAILY #90 caps 06/28/24 07/15/24 Rx release pravastatin 20 mg tablet 20 mg PO HS #90 tabs 06/28/24 07/15/24 Rx triamterene 37.5 1 tablet PO QAM #90 tabs 06/28/24 07/15/24 Rx mg-hydrochlorothiazide 25 mg tablet mupirocin 2 % topical ointment 1 applic topical BID #22 grams 07/06/24 07/15/24 Rx (Cent[facility]) leflunomide 20 mg tablet 20 mg PO DAILY 07/15/24 07/15/24 History metformin 500 mg tablet 500 mg PO BID 07/15/24 07/15/24 History Allergies Allergy/AdvReac Type Severity Reaction Status Date / Time Iodinated Contrast Media Allergy Severe Hives Verified 07/15/24 14:24 infliximab (From Remicade) AdvReac Intermediate Rash Verified 07/15/24 14:24 Vital Signs Vital Signs - 24 hr 07/15/24 14:30 07/15/24 15:38 07/15/24 15:43 Temperature 97.9 F Pulse Rate 113 H 93 Respiratory Rate 18 Blood Pressure 139/63 Pulse Oximetry 98 97 Oxygen Delivery Nasal Cannula Nasal Cannula Oxygen Flow Rate 2 1 07/15/24 18:45 07/15/24 20:48 07/15/24 22:09 Temperature Pulse Rate 72 63 64 Respiratory Rate 16 19 19 Blood Pressure 123/50 L 111/57 L 104/64 Pulse Oximetry 97 98 97 Oxygen Delivery Oxygen Flow Rate 07/15/24 22:10 07/15/24 22:58 07/16/24 00:15 Temperature 97.5 F L Pulse Rate 64 70 63 Respiratory Rate 19 20 Blood Pressure 104/64 124/37 L Pulse Oximetry 97 96 96 Oxygen Delivery Autopap Oxygen Flow Rate 07/16/24 03:04 07/16/24 06:00 07/16/24 09:25 Temperature 97.3 F L Pulse Rate 56 L 61 Respiratory Rate 16 Blood Pressure 112/44 L Pulse Oximetry 92 95 97 Oxygen Delivery Autopap Nasal Cannula Oxygen Flow Rate 2 Exam Narrative: Gen - well appearing male in no acute respiratory distress who is nontoxic- appearing lying semi recumbent in bed HEENT - normocephalic. Atraumatic. Pupils equal round and reactive. Extrao cular motions intact. Sclera clear and anicteric. Nares patent. Oropharynx was clear. No oral lesions. Moist mucous membranes. Tongue was midline. Palate anamika symmetrically. No facial asymmetry. Neck - neck was supple. No dominant adenopathy, thyromegaly or masses. 2+ carotid upstrokes without bruits. Chest - lungs are clear to auscultation bilaterally. No wheezes or crackles. CV - heart was regular rate and rhythm. S1-S2. No murmurs gallops or rubs. Abd - abdomen was soft. Tender to palpation throughout LUQ and LLQ, no guarding. Nondistended. Positive bowel sounds. No organomegaly or masses. Ext - no clubbing, cyanosis or edema. 2+ DP pulses bilaterally. Neuro - patient is alert and oriented x4. Strength is 5/5 in both upper and lower extremities. Cranial nerves 2-12 are intact. Speech is clear. Psych - normal mood and affect. Patient is pleasant and cooperative. Skin - warm and dry. No rashes noted. H&P: Results Labs Labs: Short CBC 07/15/24 07/16/24 Range/Units 15:37 08:00 WBC 8.6 7.1 (4.5-10.0) K/mm3 Hgb 11.0 L 9.2 L (14.0-18.0) g/dL Hct 35.6 L 30.4 L (42.0-52.0) % Plt Count 162 142 L (150-375) k/mm3 BMP 07/15/24 07/16/24 15:37 08:00 Sodium 134 L 136 L Potassium 3.3 L 3.9 Chloride 101 107 Carbon Dioxide 25 25 BUN 24 H 20 Creatinine 1.76 H 1.44 H Glucose 136 H 84 Calcium 9.2 8.2 L Liver Function 07/15/24 07/16/24 Range/Units 15:37 08:00 Total Bilirubin 0.4 0.4 (0.2-1.3) mg/dL AST 48 37 (17-59) U/L ALT 32 26 (6-50) U/L Alkaline Phosphatase 197 H 133 H (38-126) U/L Albumin 3.4 L 2.7 L (3.5-5.1) g/dL Urine 07/15/24 Range/Units 17:50 Urine Color Yellow (Yellow) Urine Appearance Clear (Clear) Urine pH 5.0 (5.0-9.0) Ur Specific [place] 1.018 (1.001-1.035) Urine Protein Trace (Negative) mg/dL Urine Glucose (UA) Negative (Negative) mg/dL Assessment and Plan Assessment and plan (1) Diarrhea: Qualifiers: Diarrhea type: unspecified type Qualified Code(s): R19.7 - Diarrhea, unspecified Code(s): R19.7 - Diarrhea, unspecified Status: Acute Assessment and Plan: * Monitor vital signs, I&Os, track stool output, watch for bloody stools, neuro status and patient is a fall risk * Monitor serum electrolytes and CBC * CT abdomen pelvis wo con: No evidence of appendicitis, diverticulitis or intestinal obstruction. Slightly thickened wall of the urinary bladder. * Gentle IV fluid resuscitation * Diet: Solids, as tolerated * Hold Leflunomide * C diff stool negative (2) Weakness: Code(s): R53.1 - Weakness Status: Acute Assessment and Plan: Likely related to issue above (3) Rheumatoid arthritis involving multiple sites: Qualifiers: Rheumatoid factor presence: unspecified presence Qualified Code(s): M06.9 - Rheumatoid arthritis, unspecified Code(s): M06.9 - Rheumatoid arthritis, unspecified Status: Acute Assessment and Plan: - Hold Leflunomide (4) LLQ abdominal pain: Code(s): R10.32 - Left lower quadrant pain Status: Acute Assessment and Plan: * CT abdomen pelvis wo con: No evidence of appendicitis, diverticulitis or intestinal obstruction. Slightly thickened wall of the urinary bladder. * H/o diverticulosis * States symptoms improving after course of antibiotics prescribed by PCP (5) Type 2 diabetes mellitus: Qualifiers: Diabetes mellitus complication status: without complication Diabetes mellitus ad terminal makeup operator insulin use: without snf use Qualified Code(s): E11.9 - Type 2 diabetes mellitus without complications Code(s): E11.9 - Type 2 diabetes mellitus without complications Status: Acute Assessment and Plan: - hypoglycemia protocol - POC blood glucose ACHS - correct regimen ordered - low dose TIDWM and HS - A1C pending
[2024-07-16 14:23] VITALS: BP 122/57; PULSE 70; RESP 17; TEMP 36.6; O2SAT 99
--- NOTE | 2024-07-16 15:33 | PM.SD2 ---
Same Day Admit/Disch: HPI History of Present Illness Chief complaint: Weakness Narrative: Dilan Weaver is a 78-year-old male with a past medical history of COPD, HTN, BENIGNO, Rheumatoid Arthritis, Diverticulosis, rectal polyps, hypercholesterolemia, and lung cancer who presented to the ED with complaints of diarrhea for the past month, which worsened over the past week. He recently started taking Leflunomide 1 month ago for arthritis and states that he has had multiple loose stools a day since initiating this medication. He reports having several stools throughout the day that progresses from formed to loose by the end of the day. He reports progressive worsening of these symptoms over the past week with progressive worsening generalized weakness. He also endorses left upper+lower abdominal pain that started over a year ago and has been worked up by his PCP but nothing has been found. He describes it as dull, intermittent in nature, worsened by palpation and movement and relieved by rest. He was seen by his PCP for this issue about 1 week ago and was given a course of Augmentin and Flagyl and completed this course yesterday. He states that his symptoms felt as though they were improving last night and at this time, he states that his abdominal pain has improved and has not had a bowel movement this morning. He denies any sick contacts, recent travel, new foods, ingestion of raw/uncooked meat He received 3L normal saline in the ED for dehydration. In ED: WBC 8.6, RBC 4.5, Hgb 11.0, Hct 35.6, Plt count 162, Na 134, K 3.3, Cl 101, Anion Gap 8, BUN 24, Cr 1.76, eGFR 38, Ca 9.2, AST 48, ALT 32, Alk Phosphatase 197, Albumin 3.4. Chest XR showed Left basilar atelectasis versus pneumonia. Left midzone subsegmental atelectasis versus fluid in a fissure. CT abdomen/Pelvis showed No evidence of appendicitis, diverticulitis or intestinal obstruction. Slightly thickened wall of the urinary bladder. Evaluation for cystitis advised. EKG showed Sinus rhythm with RBBB, no significant changes when compared to ECG on 04/15/2024. Urinalysis showed trace Ketones and trade Leukocyte Esterase but was otherwise normal. Pt does not have any urinary complaints. Upon examination, he states that he feels as though over the past day that his stools have been more solid than they have been over the past week. [facility] Past Medical History Medical History BMI 35.0-35.9,adult Colon polyp Lung cancer Influenza A COVID-19 Shingles Kidney stones GERD (gastroesophageal reflux disease) History of rectal polyps Gastrointestinal ulcer Diverticulitis Diverticulosis Emphysema of lung Cataracts, bilateral Obesity Hypercholesterolemia Benign essential hypertension Benign prostatic hyperplasia with lower urinary tract symptoms Chronic low back pain Chronic obstructive pulmonary disease, unspecified Elevated LFTs Follicular lymphoma grade II, unspecified site Lung nodule Mixed hyperlipidemia Obstructive sleep apnea (adult) (pediatric) Rheumatoid arthritis involving multiple sites Splenomegaly Surgical History Surgical History Hx of cholecystectomy History of right knee joint replacement Hx of cataract surgery History of back surgery Family History Family History Mother Family history of osteoarthritis Family history of congestive heart failure, Onset Age: 90 Family history of malignant neoplasm of breast in first degree relative Sibling Carcinoma of colon, Onset Age: 66 Family history of lupus erythematosus, Onset Age: 21 Family history of primary malignant neoplasm of liver Father Acute myocardial infarction Hypertension, Onset Age: 68 Family history of cardiovascular disease, Onset Age: 68 Social History Social History Smoking packs per day: 2 Smoking cigarettes per day: 40.0 Years smoked: 40 Smoking pack-years: 80.00 Smoking status: Former smoker Tobacco type: cigarettes Second hand tobacco smoke exposure: No Smoking end date: 07/07/99 Alcohol intake: never Substance use: never Substance use type: does not use Do You Feel Safe in your Home?: Yes Lack of Transportation: YES Lack of Food: Never True Current Housing: I Have Housing Concerned About Future Housing: No Difficulty Paying Gas/Electric Bills: No Difficulty Paying for Meds: No Currently Unemployed: No Education: High School Diploma/GED Difficulty w/ Childcare or Family Care: No Living arrangements: with family Occupation/Education: retired 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 [employer] Gender identity (if verbalized by the patient): Male Sexual Orientation (if Verbalized by the Patient): Straight or Heterosexual Spiritual care concerns: No Agree to blood products: Yes Same Day Admit/Disch: Med Pre-admit Medications Home Medications ?Medication ?Instructions ?Recorded ?Confirmed ?Type hydrocodone 10 mg-acetaminophen 1 tablet PO Q6H PRN Pain 02/21/20 07/15/24 History 325 mg tablet tamsulosin 0.4 mg capsule 0.4 mg PO QHS 08/01/20 07/15/24 History blood-glucose meter (Accu-Chek #1 ea 08/04/20 07/15/24 Rx Guide Glucose Meter) lancets (Accu-Chek Multiclix #200 ea 08/04/20 07/15/24 Rx Lancet) blood sugar diagnostic (Accu-Chek #100 ea 11/06/20 07/15/24 Rx Guide test strips) aspirin 81 mg tablet,delayed 81 mg PO DAILY 06/25/22 07/15/24 History release (Aspir-) magnesium 250 mg tablet 400 mg PO DAILY 06/25/22 07/15/24 History budesonide 160 mcg-glycopyr 9 2 inh inhalation BID 07/25/22 07/15/24 History mcg-formot 4.8 mcg/actuation HFA inhaler (Breztri Aerosphere) albuterol sulfate 90 mcg/actuation 2 puff inhalation Q4-6H PRN 03/12/23 07/15/24 History aerosol inhaler Shortness Of Breath azelastine 137 mcg (0.1 %) nasal 137 mcg (0.137 mL) intranasal Q12H 04/10/23 07/15/24 Rx spray #30 mL hyoscyamine sulfate 0.125 mg 0.125 mg PO QID PRN esophageal 04/10/23 07/15/24 Rx disintegrating tablet spasms #45 tabs oxygen-air delivery systems 04/10/23 07/15/24 History trazodone 50 mg tablet See Rx Instructions .Route 05/23/23 07/15/24 Rx .COMPLEX #270 tabs hydroxychloroquine 200 mg tablet 200 mg PO DAILY 06/23/23 07/15/24 History celecoxib 200 mg capsule 200 mg PO DAILY 10/27/23 07/15/24 History prednisone 2.5 mg tablet 10 mg PO DAILY 01/29/24 07/15/24 History fluticasone propionate 50 See Rx Instructions .Route 04/28/24 07/15/24 Rx mcg/actuation nasal .COMPLEX #48 grams spray,suspension diltiazem HCl 240 mg capsule,24 240 mg PO DAILY #90 caps 05/05/24 07/15/24 Rx hr,extended release famotidine 20 mg tablet See Rx Instructions .Route 05/05/24 07/15/24 Rx .COMPLEX #90 tabs omeprazole 40 mg capsule,delayed 40 mg PO DAILY #90 caps 06/28/24 07/15/24 Rx release pravastatin 20 mg tablet 20 mg PO HS #90 tabs 06/28/24 07/15/24 Rx triamterene 37.5 1 tablet PO QAM #90 tabs 06/28/24 07/15/24 Rx mg-hydrochlorothiazide 25 mg tablet mupirocin 2 % topical ointment 1 applic topical BID #22 grams 07/06/24 07/15/24 Rx (Centany) leflunomide 20 mg tablet 20 mg PO DAILY 07/15/24 07/15/24 History metformin 500 mg tablet 500 mg PO BID 07/15/24 07/15/24 History Review of Systems Review of Systems All systems reviewed & are unremarkable except as noted in HPI and below Exam Narrative: Gen - well appearing male in no acute respiratory distress who is nontoxic-appearing lying semi recumbent in bed HEENT - normocephalic. Atraumatic. Pupils equal round and reactive. Extraocular motions intact. Sclera clear and anicteric. Nares patent. Oropharynx was clear. No oral lesions. Moist mucous membranes. Tongue was midline. Palate anamika symmetrically. No facial asymmetry. Neck - neck was supple. No dominant adenopathy, thyromegaly or masses. 2+ carotid upstrokes without bruits. Chest - lungs are clear to auscultation bilaterally. No wheezes or crackles. CV - heart was regular rate and rhythm. S1-S2. No murmurs gallops or rubs. Abd - abdomen was soft. Slight tenderness to palpation throughout LUQ and LLQ, no guarding. Nondistended. Positive bowel sounds. No organomegaly or masses. Ext - no clubbing, cyanosis or edema. 2+ DP pulses bilaterally. Neuro - patient is alert and oriented x4. Strength is 5/5 in both upper and lower extremities. Cranial nerves 2-12 are intact. Speech is clear. Psych - normal mood and affect. Patient is pleasant and cooperative. Skin - warm and dry. No rashes noted. DS: Data Data Completed and Pending Labs on day of discharge: Labs from last 24 hours 07/16/24 07/16/24 07/15/24 08:00 07:32 22:37 WBC 7.1 RBC 3.76 L Hgb 9.2 L Hct 30.4 L MCV 80.9 MCH 24.5 L MCHC 30.3 L RDW 17.4 H Plt Count 142 L MPV 10.4 Immature Gran % (Auto) 2.1 H Neut % (Auto) 66.5 Lymph % (Auto) 16.6 L [place] % (Auto) 10.3 H Eos % (Auto) 3.7 Baso % (Auto) 0.8 Lymph # (Auto) 1.18 [place]itus # (Auto) 0.7 H Eos # (Auto) 0.3 Baso # (Auto) 0.1 Abs Immat Gran (auto) 0.15 H Absolute Neuts (auto) 4.7 Absolute Nucleated RBC 0.000 Nucleated RBC % 0.0 Sodium 136 L Potassium 3.9 Chloride 107 Carbon Dioxide 25 Anion Gap 4 BUN 20 Creatinine 1.44 H Estim Creat Clear Calc 42 Estimated GFR 47 L Glucose 84 Hemoglobin A1c Pending Lactic Acid 2.5 H Calcium 8.2 L Total Bilirubin 0.4 AST 37 ALT 26 Alkaline Phosphatase 133 H Total Protein 6.0 L Albumin 2.7 L Amylase Pending Lipase Pending Urine Color Urine Appearance Urine pH Ur Specific [place] Urine Protein Urine Glucose (UA) Urine Ketones Ur Blood (Man) Urine Nitrate Urine Bilirubin Urine Urobilinogen Leukocyte Esterase Rfl Urine RBC Urine WBC Ur Squamous Epith Cells Urine Bacteria Urine Casts C. difficile (PCR) Negative Influenza A (RT-PCR) Influenza B (RT-PCR) RSV (RT-PCR) SARS-CoV-2 RNA (RT-PCR) 07/15/24 07/15/24 07/15/24 19:40 17:50 15:41 WBC RBC Hgb Hct MCV MCH MCHC RDW Plt Count MPV Immature Gran % (Auto) Neut % (Auto) Lymph % (Auto) [place] % (Auto) Eos % (Auto) Baso % (Auto) Lymph # (Auto) [place] # (Auto) Eos # (Auto) Baso # (Auto) Abs Immat Gran (auto) Absolute Neuts (auto) Absolute Nucleated RBC Nucleated RBC % Sodium Potassium Chloride Carbon Dioxide Anion Gap BUN Creatinine Estim Creat Clear Calc Estimated GFR Glucose Hemoglobin A1c Lactic Acid 2.2 H Calcium Total Bilirubin AST ALT Alkaline Phosphatase Total Protein Albumin Amylase Lipase Urine Color Yellow Urine Appearance Clear Urine pH 5.0 Ur Specific [place] 1.018 Urine Protein Trace Urine Glucose (UA) Negative Urine Ketones Trace H Ur Blood (Man) Negative Urine Nitrate Negative Urine Bilirubin Negative Urine Urobilinogen 0.2 Leukocyte Esterase Rfl Trace H Urine RBC 0-2 Urine WBC 0-5 Ur Squamous Epith Cells None seen Urine Bacteria None seen Urine Casts 3-5 C. difficile (PCR) Influenza A (RT-PCR) Negative Influenza B (RT-PCR) Negative RSV (RT-PCR) Negative SARS-CoV-2 RNA (RT-PCR) Negative 07/15/24 15:37 WBC 8.6 RBC 4.50 L Hgb 11.0 L Hct 35.6 L MCV 79.1 L MCH 24.4 L MCHC 30.9 L RDW 17.2 H Plt Count 162 MPV 9.9 Immature Gran % (Auto) 0.8 H Neut % (Auto) 72.5 Lymph % (Auto) 10.7 L [place] % (Auto) 12.3 H Eos % (Auto) 3.0 Baso % (Auto) 0.7 Lymph # (Auto) 0.92 [place] # (Auto) 1.1 H Eos # (Auto) 0.3 Baso # (Auto) 0.1 Abs Immat Gran (auto) 0.07 H Absolute Neuts (auto) 6.2 Absolute Nucleated RBC 0.000 Nucleated RBC % 0.0 Sodium 134 L Potassium 3.3 L Chloride 101 Carbon Dioxide 25 Anion Gap 8 BUN 24 H Creatinine 1.76 H Estim Creat Clear Calc 34 Estimated GFR 38 L Glucose 136 H Hemoglobin A1c Lactic Acid Calcium 9.2 Total Bilirubin 0.4 AST 48 ALT 32 Alkaline Phosphatase 197 H Total Protein 7.0 Albumin 3.4 L Amylase Lipase Urine Color Urine Appearance Urine pH Ur Specific [place] Urine Protein Urine Glucose (UA) Urine Ketones Ur Blood (Man) Urine Nitrate Urine Bilirubin Urine Urobilinogen Leukocyte Esterase Rfl Urine RBC Urine WBC Ur Squamous Epith Cells Urine Bacteria Urine Casts C. difficile (PCR) Influenza A (RT-PCR) Influenza B (RT-PCR) RSV (RT-PCR) SARS-CoV-2 RNA (RT-PCR) DS: Summary Hospital Course Reason for hospitalization: Nausea, diarrhea Hospital Course: Dilan Weaver is a 78-year-old male with a past medical history of COPD, HTN, BENIGNO, Rheumatoid Arthritis, Diverticulosis, rectal polyps, hypercholesterolemia, and lung cancer who presented to the ED with complaints of diarrhea for the past month, which worsened over the past week. He recently started taking Leflunomide 1 month ago for arthritis and states that he has had multiple loose stools a day since initiating this medication. He reports having several stools throughout the day that progresses from formed to loose by the end of the day. He reports progressive worsening of these symptoms over the past week with progressive worsening generalized weakness. He also endorses left upper+lower abdominal pain that started over a year ago and has been worked up by his PCP but nothing has been found. He describes it as dull, intermittent in nature, worsened by palpation and movement and relieved by rest. He was seen by his PCP for this issue about 1 week ago and was given a course of Augmentin and Flagyl and completed this course yesterday. He states that his symptoms felt as though they were improving last night and at this time, he states that his abdominal pain has improved and has not had a bowel movement this morning. He denies any sick contacts, recent travel, new foods, ingestion of raw/uncooked meat He received 3L normal saline in the ED for dehydration. In ED: WBC 8.6, RBC 4.5, Hgb 11.0, Hct 35.6, Plt count 162, Na 134, K 3.3, Cl 101, Anion Gap 8, BUN 24, Cr 1.76, eGFR 38, Ca 9.2, AST 48, ALT 32, Alk Phosphatase 197, Albumin 3.4. Chest XR showed Left basilar atelectasis versus pneumonia. Left midzone subsegmental atelectasis versus fluid in a fissure. CT abdomen/Pelvis showed No evidence of appendicitis, diverticulitis or intestinal obstruction. Slightly thickened wall of the urinary bladder. Evaluation for cystitis advised. EKG showed Sinus rhythm with RBBB, no significant changes when compared to ECG on 04/15/2024. Urinalysis showed trace Ketones and trade Leukocyte Esterase but was otherwise normal. Pt does not have any urinary complaints. Upon examination, he states that he feels as though over the past day that his stools have been more solid than they have been over the past week. Upon examination, patient physical exam was fairly benign. Viral panel negative for Influenza A/B, RSV, and COVID. C diff PCR negative. After receiving 3L NS in the ER, patient endorsed vast improvement in his weakness. He was able to ambulate to and from the bathroom multiple times without any difficulty. Neurological exam was benign. Abdominal exam continued to elicit tenderness to palpation in the LLQ but patient states that this has been going on for over a year and has been worked up by his PCP. He also reports passage of harder stool today. Patient vitals otherwise stable and blood work is unremarkable for any significant findings. Pt stable for discharge with close follow-up with his primary care physician. It is likely that his diarrhea is a side effect of his recently started Leflunomide but we will recommend that he stop taking this, but will instruct him to follow with his PCP closely regarding alternative therapy. Status at Discharge Functional status at discharge: independent ambulation Overall status at discharge: patient is back to baseline Time Spent with Patient Time attestation: Total time spent providing and/or coordinating discharge services:30 DS: Admitting Diagnosis Discharge Date 07/16/2024 Admitting Diagnosis Diarrhea DS: Discharge Diagnosis Discharge Diagnosis (1) Diarrhea: Qualifiers: Diarrhea type: unspecified type Qualified Code(s): R19.7 - Diarrhea, unspecified Code(s): R19.7 - Diarrhea, unspecified Status: Acute (2) Weakness: Code(s): R53.1 - Weakness Status: Acute (3) Rheumatoid arthritis involving multiple sites: Qualifiers: Rheumatoid factor presence: unspecified presence Qualified Code(s): M06.9 - Rheumatoid arthritis, unspecified Code(s): M06.9 - Rheumatoid arthritis, unspecified Status: Acute (4) LLQ abdominal pain: Code(s): R10.32 - Left lower quadrant pain Status: Acute (5) Type 2 diabetes mellitus: Qualifiers: Diabetes mellitus complication status: without complication Diabetes mellitus usp insulin use: without buttermaker use Qualified Code(s): E11.9 - Type 2 diabetes mellitus without complications Code(s): E11.9 - Type 2 diabetes mellitus without complications Status: Acute Discharge Plan Discharge Attending physician on discharge: Quan Bonner Discharging Clinician: Quan Bonner Anticipated Discharge Date/Time: 07/16/24 15:41 Patient Disposition: Home Activity: as tolerated Diet: as tolerated Discharge Instructions: Discharge disposition: stable Take home medications as prescribed You can stop taking your Leflunomide, but call and schedule an appointment with you primary care physician regarding starting an alternative medication. Monitor blood pressures Take caution while standing, rising, or moving Change positions slowly taking a break between each position change If you standing feel dizzy sit back down and take a break Encouraged to continue with yearly vaccinations Return to the emergency department if he developed sudden shortness of breath, chest pain, nausea, vomiting, upset stomach or intractable diarrhea Return to the emergency department if you develop fever greater than 101.5 Follow-up with the primary care physician within 1-2 weeks Thank you for [facility] for your healthcare needs Patient Instructions: Antibiotic Form Patient Language: Mexican Stand Alone Forms: General Discharge Information Follow-up/Referrals: Valeriy Marte APRN [Primary Care Provider] - Discharge Medications: Continued hydrocodone-acetaminophen 10-325 mg tablet 1 tablet PO Q6H PRN (Reason: Pain) tamsulosin 0.4 mg capsule 0.4 mg PO QHS aspirin [Aspir-81] 81 mg tablet,delayed release (DR/EC) 81 mg PO DAILY (DME) oxygen-air delivery systems Device See Rx Instructions .Route Patient Comments: pt states he is on 2 liters every night. Rx Instructions: As directed hyoscyamine sulfate 0.125 mg tablet,disintegrating 0.125 mg PO QID PRN (Reason: esophageal spasms) Qty: 45 0RF azelastine 137 mcg (0.1 %) aerosol,spray 137 mcg intranasal Q12H Qty: 30 5RF Rx Instructions: administer into each nostril hydroxychloroquine 200 mg tablet 200 mg PO DAILY fluticasone propionate 50 mcg/actuation spray,suspension See Rx Instructions .ROUTE .COMPLEX Qty: 48 3RF Dose Instruction: USE 2 SPRAYS IN EACH NOSTRIL DAILY NEEDED FOR CONGESTION Rx Instructions: USE 2 SPRAYS IN EACH NOSTRIL DAILY NEEDED FOR CONGESTION magnesium 250 mg tablet 400 mg PO DAILY Breztri Aerosphere 160-9-4.8 mcg/actuation Hfa Aerosol Inhaler 2 inh INHALATION BID albuterol sulfate 90 mcg/actuation HFA aerosol inhaler 2 puff INHALATION Q4-6H PRN (Reason: Shortness Of Breath) prednisone 2.5 mg tablet 10 mg PO DAILY Rx Instructions: TAKE 1 TABLET THREE TIMES DAILY celecoxib 200 mg capsule 200 mg PO DAILY metformin 500 mg tablet 500 mg PO BID Rx Instructions: TAKE 2 TABLETS EVERY DAY (DME) blood-glucose meter [Accu-Chek Guide Glucose Meter] Misc See Rx Instructions .Route Qty: 1 0RF Rx Instructions: test 2 times a day. (DME) lancets [Accu-Chek Multiclix Lancet] Misc See Rx Instructions .Route Qty: 200 1RF Rx Instructions: test 2 times a day (DME) Accu-Chek Guide test strips Strip See Rx Instructions .Route Qty: 100 2RF Rx Instructions: test 2 time a day trazodone 50 mg tablet See Rx Instructions .ROUTE .COMPLEX Qty: 270 1RF Dose Instruction: TAKE 3 TABLETS AT BEDTIME NEEDED FOR SLEEP Rx Instructions: TAKE 3 TABLETS AT BEDTIME NEEDED FOR SLEEP famotidine 20 mg tablet See Rx Instructions .ROUTE .COMPLEX Qty: 90 1RF Dose Instruction: TAKE 1 TABLET EVERY DAY Rx Instructions: TAKE 1 TABLET EVERY DAY diltiazem HCl 240 mg capsule,extended release 24hr 240 mg PO DAILY Qty: 90 1RF omeprazole 40 mg capsule,delayed release(DR/EC) 40 mg PO DAILY Qty: 90 1RF Rx Instructions: TAKE 1 CAPSULE EVERY DAY triamterene-hydrochlorothiazid 37.5-25 mg tablet 1 tablet PO QAM Qty: 90 1RF pravastatin 20 mg tablet 20 mg PO HS Qty: 90 1RF Rx Instructions: TAKE 1 TABLET AT BEDTIME mupirocin [Centany] 2 % ointment 1 applic topical BID Qty: 22 2RF Held leflunomide 20 mg tablet 20 mg PO DAILY Hold Instructions: Resume on 07/30/24. Date of admission: 07/16/24 08:30 Primary Care Provider: Valeriy Marte Admitting Provider: Urbano Walker Attending physician on admission: Quan Bonner Condition: Stable
[2024-07-16 15:40] LABS: Amylase 74 U/L (30-110); Lipase 237 U/L (23-300)
[2024-07-16 15:43] LABS: Hemoglobin A1C 5.7 % (<5.7)
== END 2024-07-16 16:35 | disposition home or self-care (01) | DRG 392 ==
LOC: ANHED 19:29 → ANH3MEDSUR 20:21
PROVIDERS: Admitting Provider Internal Medicine; Emergency Provider Emergency Medicine; PCP Nurse Practitioner; Visit Provider Physician Assistant
DX: R19.7 Diarrhea, unspecified (principal); E86.0 Dehydration; R53.1 Weakness; M06.9 Rheumatoid arthritis, unspecified; G47.33 Obstructive sleep apnea (adult) (pediatric); E11.9 Type 2 diabetes mellitus without complications; J44.9 Chronic obstructive pulmonary disease, unspecified; R91.1 Solitary pulmonary nodule; N40.1 Benign prostatic hyperplasia with lower urinary tract symptoms; I10 Essential (primary) hypertension; E78.2 Mixed hyperlipidemia; K21.9 Gastro-esophageal reflux disease without esophagitis; E66.9 Obesity, unspecified; K57.90 Diverticulosis of intestine, part unspecified, without perforation or abscess without bleeding; Z96.651 Presence of right artificial knee joint; Z90.49 Acquired absence of other specified parts of digestive tract; Z87.891 Personal history of nicotine dependence; Z85.72 Personal history of non-Hodgkin lymphomas; Z85.118 Personal history of other malignant neoplasm of bronchus and lung; Z86.16 Personal history of COVID-19; Z68.32 Body mass index [BMI] 32.0-32.9, adult
CPT/HCPCS: 36415; 71046; 74176; 80053; 81001; 82150; 83036; 83605; 83690; 85025; 87493; 87637; 93005; 96361; 96374; 96375; 99285; A9270; G0378; J1171; J2405; J7030

== ENCOUNTER 2024-08-02 08:57 | Outpatient (CLI) | payer MEDICARE, SELFPAY ==
--- NOTE | ~2024-08-02 | CT_ITS ---
Clinical Indication: Lung cancer CT Scan of the Chest, Abdomen, and Pelvis with Contrast: Technique: Contiguous sections were acquired throughout the chest, abdomen, and pelvis after intraven ous administration of 100 cc of Omnipaque 350. Dose reduction technique was used on this scan by uti lizing automated exposure control and iterative reconstruction technique. The dose-length product (DL P) was 969.82 mGy-cm. Comparison: 07/15/2024, 02/11/2024 Findings: There is no evidence of any significant mediastinal, hilar or axillary lymphadenopathy. Extensive ath erosclerotic calcifications of the aorta and coronary arteries are present. There is no evidence of pleural or pericardial effusion. Advanced emphysema present. Stable probable post treatment change with bandlike consolidation in the left upper lobe. There is a peripheral chronic interstitial change and scarring of right upper lobe a re also unchanged. No suspicious pulmonary nodule or consolidation seen. The liver, spleen, pancreas, adrenals and right kidney are within normal limits. Punctate nonobstruct ing left renal stone present. Cholecystectomy clips are present. There are atherosclerotic calcificat ions of the aorta. No lymphadenopathy. No bowel obstruction or bowel wall thickening. There is no evidence to suggest acute appendicitis. Urinary bladder is unremarkable. No pelvic mass seen. No ascites. Impression: No significant interval change. No evidence for active malignancy or metastatic disease. Stable probable post treatment/post radiation change in the left upper lobe. Advanced emphysema with peripheral chronic interstitial change. Punctate nonobstructing left renal stone. Reviewed, dictated and finalized at [facility]. Impression: No significant interval change. No evidence for active malignancy or metastatic disease. Stable probable post treatment/post radiation change in the left upper lobe. Advanced emphysema with peripheral chronic interstitial change. Punctate nonobstructing left renal stone.
--- OUTSIDE RECORDS SUMMARY | 2024-08-02 09:30 | XMS_ITS | Encounter Summary ---
Author Organization [facility] Health Address [address] [place] [address] Care Team Providers Care Grain Elevator Man Name Role Phone Julius Encinas MD Primary Care Provider [phone] Valeriy Lawson MD Unavailable [phone] Encounter Details Date Type Department Care Team (Late st Contact Info) Description 02/10/2014 [facility] Outpatient Visit EXTERNAL NON-[facility] DEPT Valeriy Lawson MD [address] [place] [id number] Social History Tobacco Use Types Packs/Day Years Used Date Smoking Tobacco: Former Cigarettes 0 09/20/1992 - 09/20/2000 Smokeless Tobacco: Never Comments:unk date and mon Alcohol Use Standard Drinks/Week Comments No 0 (1 standard drink = 0.6 oz pur e alcohol) Sex and Gender Information Value Date Recorded Sex Assigned at Not on file 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
--- OUTSIDE RECORDS SUMMARY | 2024-08-02 09:30 | XMS_ITS | Encounter Summary ---
Author Organization [facility] Health Address [address] [facility] [place] [address] Care Team Providers Care Hearing Healthcare Practitioner Name Role Phone Julius Encinas MD Primary Care Provider [phone] Valeriy Lawson MD Unavailable [phone] Encounter Details Date Type Department Care Team (Late st Contact Info) Description 09/23/2013 [facility] Outpatient Visit EXTERNAL NON-[facility] DEPT Valeriy Lawson MD [address] [place] [id number] Social History Tobacco Use Types Packs/Day Years Used Date Smoking Tobacco: Former Cigarettes 0 09/20/1992 - 09/20/2000 Smokeless Tobacco: Never Comments:unk date and mon Alcohol Use Standard Drinks/Week Comments No 0 (1 standard drink = 0.6 oz pur e alcohol) Sex and Gender Information Value Date Recorded Sex Assigned at Not on file 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 [address] PCP - General 06/10/08 Valeriy Lawson MD [address] [place] [address] 11/13/09 documented as of this encounter
--- OUTSIDE RECORDS SUMMARY | 2024-08-02 09:30 | XMS_ITS | Clinical Summary ---
Author Organization [facility] Address [address] [place] [address] Care Team Providers Care Oracle Fusion Developer Name Role Phone Julius Encinas MD Primary Care Provider Valeriy Lawson MD Unavailable [phone] Source Comments [facility],non-owned Affiliates and Associated Physician Practices is amultiple site organization consisting of ambulatory clinics and hospital sitesin [place], [place], [place] and [place]. This disclosure is being madepursuant to the Care Everywhere program and may not contain all information available regarding this patient. Last updated 17.[facility] Allergies Active Allergy Reactions Criticality Noted Date Comments Contrast-Iodinated Agents For Ct/Other 06/10/2008 Infliximab Injection 2008 Swollen hands, headache, unsteady Medications * Be aware that medications may not be up to date on this document. Alwaysverify current medications with the patient. temazepam (RESTORIL) 30 MG capsule Take 30 mg by mouth nightly as needed for Insomnia. Active doxazosin (CARDURA) 2 MG tablet Take 4 mg by mouth at bedtime Active vitamin E (TOCOPHERYL) 1000 UNIT capsule Take 1 Cap by mouth daily. Active MULTIPLE VITAMINS PO Take by mouth daily. Active [place]-3 Fatty Acids (FISH OIL) 1200 MG CAPS Take by mouth 2 times daily. Active pravastatin (PRAVACHOL) 20 MG tablet Take 20 mg by mouth at bedtime. Active albuterol-ipra tropium (COMBIVENT) 18-103 MCG/ACT inhaler Inhale 2 Puffs by mouth 4 times daily as needed. Active budesonide-for moterol (SYMBICORT) 160-4.5 MCG/ACT inhaler Inhale 2 Puffs by mouth 2 times daily. Active aspirin 81 MG tablet Take 161 mg by mouth once daily. Active albuterol HFA (PROAIR HFA) 108 (90 BASE) MCG/ACT inhaler Inhale 2 Puffs by mouth every 4 hours as needed. Active cyclobenzaprin e (FLEXERIL) 10 MG tablet Take 1 Tab by mouth nightly as needed for Muscle Spasms 30 Tab 5 5 Active Additional Information Patient not taking.Reported on 02/11/2018 omeprazole (PRILOSEC) 40 MG capsule 6 Active methotrexate 2.5 MG tablet TAKE FOUR TABLETS BY MOUTH EVERY 7 DAYS 48 Tab 1 6 Active tamsulosin (FLOMAX) 0.4 MG capsule Take 0.4 mg by mouth once daily Take 30 minutes after a meal at the same time each day. Active nitroGLYCERIN (NITROSTAT) 0.4 MG tablet 7 Active CARTIA XT 180 MG capsule 7 Active ciprofloxacin (CIPRO) 500 MG tablet 7 Active azelastine (ASTELIN) 0.1 % nasal spray 7 Active hydroxychloroq uine (PLAQUENIL) 200 MG tablet Take 1 tablet by mouth 2 times daily 60 tablet 5 8 Active Additional Information Patient not taking.Reported on 02/11/2018 etanercept (ENBREL) 50 MG/ML auto-injector pen Inject subcutaneously every 7 days Active folic acid (FOLVITE) 1 MG tablet TAKE ONE TABLET BY MOUTH ONCE DAILY 90 tablet 2 8 Active oxyCODONE-acet aminophen (PERCOCET) 10-325 MG tablet 1 pill every 3 Hr prn 240 tablet 9 Active meloxicam (MOBIC) 7.5 MG tablet Take 1 tablet by mouth once daily 90 tablet 2 9 Active predniSONE (DELTASONE) 5 MG tablet Take 1 tablet by mouth 2 times daily 180 tablet 1 9 Active Active Problems Problem Noted Date Diagnosed [...] (08/19/2011): Start date 1999 Rhe[facility]oid [facility] with negative rheumatoid factor 05/25/2008 Overview (02/12/2015): Start date 2001, Enbrel 2007(start 02/11/2008) x 5 months- unresponsive,methotrexate 2003, screen 2011 for fostimatanib arthritis study and withdrawn 10/30/12 due to sponsor's decision. Sirukumab RA study screening date 10/19/2013 but screen failed due to eligibility criteria not met. Previous NSAIDs used Vioxx, Bextra, Celebrex 2005, Immunizations Immunization Administration Dates Next Due INFLUENZA VACCINE, TRIV. 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 Gender Identity Not on file Sexual Orientation [...] - 1-dose 75+ series) 08/04/2019 COVID-19 VACCINE ( - season) 2023 DEPRESSION SCREENING 04/07/2024 INFLUENZA [...] on patient's age to complete this topic Insurance MEDICARE SELF PAY NO INSURANCE Member Subscriber Plan / Payer (Ef fective for All Dates) Name:Meg Dilan E Member ID:Not on file Relation to Subscriber:Not on file Name:MEGPAULODILAN Subscriber ID:Not on file (Home) Address: [address] [place] [address] Payer ID:Not on file Group ID:Not on file Type:Self Pay Address: [place], [place] MEDICARE ANTHEM MEDICARE ANTHEM Care Teams Oracle Fusion Developer Relationship Specialty Start Date End Date Julius Encinas MD [address] [place] [address] PCP - General 06/10/08 Valeriy Lawson MD [address] [place] [address] 11/13/09
--- OUTSIDE RECORDS SUMMARY | 2024-08-02 09:30 | XMS_ITS | Encounter Summary ---
Author Organization [facility] Address [address] [place] [address] Care Team Providers Care Clarification Operator Name Role Phone Julius Encinas MD Primary Care Provider Valeriy Lawson MD Unavailable Encounter Details Date Type Department Care Team (Late st Contact Info) Description 05/04/2013 [facility] Outpatient Visit [facility]NAL [facility] Valeriy Lawson MD [address] [place] [address] Social History Tobacco Use Types Packs/Day Years Used Date Smoking Tobacco: Former Cigarettes 0 09/20/1992 - 09/20/2000 Smokeless Tobacco: Never Comments:unk date and mon Alcohol Use Standard Drinks/Week Comments No 0 (1 standard drink = 0.6 oz pur e alcohol) Sex and Gender Information Value Date Recorded Sex Assigned at Not on file 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
--- OUTSIDE RECORDS SUMMARY | 2024-08-02 09:30 | XMS_ITS | Encounter Summary ---
Author Organization [facility] Address [address] [place] [address] Care Team Providers Care Loss Control Engineer Name Role Phone Julius Encinas MD Primary Care Provider [phone] Valeriy Lawson MD Unavailable [phone] Encounter Details Date Type Department Care Team (Late st Contact Info) Description 02/11/2014 Therapy Visit EXTERNAL NON-[facility] Valeriy Lawson MD [address] [place] [address] Social History Tobacco Use Types Packs/Day Years Used Date Smoking Tobacco: Former Cigarettes 0 09/20/1992 - 09/20/2000 Smokeless Tobacco: Never Comments:unk date and mon Alcohol Use Standard Drinks/Week Comments No 0 (1 standard drink = 0.6 oz pur e alcohol) Sex and Gender Information Value Date Recorded Sex Assigned at Not on file 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
--- OUTSIDE RECORDS SUMMARY | 2024-08-02 09:30 | XMS_ITS | Clinical Summary ---
Author Organization [facility] Address [address] [place] [address] Care Team Providers Care Enologist Name Role Phone Unavailable Primary Care Provider [...]
--- OUTSIDE RECORDS SUMMARY | 2024-08-02 09:30 | XMS_ITS | Referral Summary ---
Author Organization [facility] Address [address] [place] [address] Care Team Providers Care Visual Coordinator Name Role Phone Zia Mercedes MD Unavailable [phone] Arpit patton MD PhD Unavailable [phone] Zia Mercedes MD Unavailable [phone] Harvey Alex MD Unavailable [phone] Dre Zavaleta DO Primary Care Provider [phone] Allergies Active Allergy Reactions Criticality Noted Date [...] on chronic respiratory failure with hypoxi a ([facility]) 06/04/2020 Assessment & Plan (08/09/2021 1:50 [...] 06/04/2020 Assessment & Plan (06/04/2020 6:00 PM LITIGATION PARALEGAL): Mild elevation of AST and ALT most likely due to acute infection. Will monitor while on remdesivir. Respiratory alkalosis 06/04/2020 Assessment & Plan (06/04/2020 6:01 PM LITIGATION PARALEGAL): Due to hyperventilation from hypoxia on admission. Monitor respiratory function with supplemental oxygen. Chronic obstructive pulmonar y disease with acute exacerbation ([facility]) 06/04/2020 Assessment & Plan (08/09/2021 1:52 PM CDT): Patient on prednisone, symbicort, and albuterol prn at home. - continue home meds - Mucinex DM and Tessalon perles added for cough Assessment & Plan (08/09/2021 1:35 AM CDT): Continue breathing treatments Assessment & Plan (06/04/2020 6:02 PM LITIGATION PARALEGAL): Mild COPD exacerbation due to COVID-19, breath sounds diminished with mild end expiratory wheezing and a cough productive of small amounts of yellow sputum. Continue steroids for COVID-19 along with home Symbicort and albuterol p.r.n. COVID-19 05/29/2020 Assessment & Plan (06/04/2020 6:04 PM LITIGATION PARALEGAL): Shortness of breath worsened since initial diagnosis [...] 05/29/2020 Assessment & Plan (06/04/2020 5:59 PM LITIGATION PARALEGAL): Unable to obtain CTA chest because of allergy to IV contrast, but symptoms are not suggestive of acute the and D-dimer is very slightly above the threshold for normal. Will treat with Lovenox at half therapeutic dose because of COVID-19. Rheumatoid arthritis involvi ng multiple sites with positive rheumatoid factor ([facility]) 05/29/2020 Assessment & Plan (08/09/2021 1:49 PM CDT): Holding Plaquenil and Celebrex. Continue prednisone daily. Assessment & Plan (08/09/2021 1:33 AM CDT): Holding Plaquenil. Continue prednisone daily. Assessment & Plan (06/04/2020 5:57 PM LITIGATION PARALEGAL): Continue home RA regimen, will need to [...] ordered Assessment & Plan (06/04/2020 5:58 PM LITIGATION PARALEGAL): Uses CPAP at home, but does not [...] on file Legal Sex Male 1:51 AM LITIGATION PARALEGAL Gender Identity Not on file Sexual Orientation Not on file Last Filed Vital Signs Vital Sign Reading Time Taken Comments Blood Pressure 122/73 03/03/2024 12:45 PM LITIGATION PARALEGAL Pulse 94 03/03/2024 12:45 PM LITIGATION PARALEGAL Temperature 37.6 C (99.7 F) 03/03/2024 6:46 AM LITIGATION PARALEGAL Respiratory Rate 16 03/03/2024 12:45 PM LITIGATION PARALEGAL Oxygen Saturation 95% 03/03/2024 12:45 PM LITIGATION PARALEGAL Inhaled Oxygen Concentration - - Weight 97.1 kg (214 lb) 03/03/2024 6:46 AM LITIGATION PARALEGAL Height 170.2 cm (5' 7 ) 03/03/2024 6:46 AM LITIGATION PARALEGAL Body Mass Index 33.52 03/03/2024 6:46 AM LITIGATION PARALEGAL Plan of Treatment Not on file Goals Goal Patient Goal Type Associated Problems Recent Progress Patient-Stated? Author [facility] No Estelita Ornelas, SARA Note: Pt would like to complete ADLs, ride motorcycle with minimal pain. Medical Devices Implanted Type Area Refractory Worker Device Identifier Shelf Expiration Date Model / Serial / Lot Other-See Comments Other - see comments Bilatera l: Knee Description:R. Total knee- 2 020 L. Total Knee-2015 Procedures Procedure Name Priority Date/Time Associated Diagnosis Comments EGFR STAT 03/03/2024 7:[address] CHEST ABDOMEN PELVIS WO CONTRAST Schedule Routine, Read Routine (OP Routine) 01/21/2023 11:07 AM CDT HEPATITIS PANEL, ACUTE Routine 06/19/2020 8:11 PM CDT HEMOGLOBIN A1C Add-On 06/12/2020 11:07 AM LITIGATION PARALEGAL from Last 3 Months or Most Recently Relevant to Health Maintenance Results * (ABNORMAL) eGFR (03/03/2024 7:02 AM LITIGATION PARALEGAL) eGFR 47(L) >=60 mL/min/1. 73 m2 Comment: [...] last reviewed 2021. Blood 03/03/2024 7:02 AM LITIGATION PARALEGAL 03/03/2024 7:06 AM LITIGATION PARALEGAL us Deandre Vasquez DO LAB BLOOD ORDERABLES Final Res ult [facility] [address] Department [place] [address] * CT Chest Abdomen Pelvis WO Contrast [...] RAL ORDERABLES Final Result Performing Organization Address [facility] Co de Phone Number [address] Department [place] [address] * (ABNORMAL) Hemoglobin A1c (06/12/2020 11:07 AM LITIGATION PARALEGAL) Hgb A1C 7.1(H) 4.0 - 5.6 % ALICIA Estimated Average Glucose 157 mg/dL ALICIA Comment: The ADA recommends reporting an estimated Average Glucose (eAG) with all Hemoglobin A1c results using the equation derived from a study of 507 normal and diabetic adults. Minority populations were underrepresented and children were not included. (Diabetes Care 31:5124-2470, 2008). The eAG is not equivalent to a fasting glucose. Blood specimen (specimen) 06/12/2020 11:07 AM LITIGATION PARALEGAL 06/12/2020 11:07 AM LITIGATION PARALEGAL Radha Vail MD LAB BLOOD ORDERABLES Final Res ult Performing Organization Address [facility] Co de Phone Number [address] Department [place] [address] from Last 3 Months or Most Recently Relevant to Health Maintenance Insurance MEDICARE [facility] MEDICARE [employer] MEDICARE SUPPLEMENT MEDICARE [facility] MEDICARE SUPPLEMENT Advance Directives For more information, please contact: [phone] * Full Code (Latest Code Status on [...] 12:19 PM 03/03/2018 4:40 PM Care Teams Visual Coordinator Relationship Specialty Start Date End Date Dre Zavaleta DO [address] [facility] [address] [place], [place] [id number] PCP - General Internal Medicine 01/14/24 [place] [address] [address] Consulting Physician Pulmonary Disease 06/25/20 Arpit Han MD PhD [address] [place] [address] Radiation Oncologist Radiation Oncology 10/04/21 [place] [address] [place] [address] Referring Physician Pulmonary Disease 10/04/21 Harvey Alex MD [address] [place] [address] Referring Physician Hematology 02/01/22
--- OUTSIDE RECORDS SUMMARY | 2024-08-02 09:30 | XMS_ITS | Encounter Summary ---
Author Organization [facility] Address [address] 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
--- OUTSIDE RECORDS SUMMARY | 2024-08-02 09:30 | XMS_ITS | Clinical Summary ---
Author Organization [facility] Address [address] [place] [address] Care Team Providers Care Hand Glove Cleaner Name Role Phone Zia Mercedes MD Unavailable [phone] Arpit aptton MD PhD Unavailable [phone] Zia Mercedes MD Unavailable [phone] Harvey Alex MD Unavailable [phone] Dre Zavaleta DO Primary Care Provider [phone] Allergies Active Allergy Reactions Criticality Noted Date [...] chronic respiratory failure with hypoxi a ([facility]) 06/04/2020 Assessment & Plan (08/09/2021 1:50 PM [...] 06/04/2020 Assessment & Plan (06/04/2020 6:00 PM MARKETING PROGRAM COORDINATOR): Mild elevation of AST and ALT most likely due to acute infection. Will monitor while on remdesivir. Respiratory alkalosis 06/04/2020 Assessment & Plan (06/04/2020 6:01 PM MARKETING PROGRAM COORDINATOR): Due to hyperventilation from hypoxia on admission. Monitor respiratory function with supplemental oxygen. Chronic obstructive pulmonar y disease with acute exacerbation ([facility]) 06/04/2020 Assessment & Plan (08/09/2021 1:52 PM CDT): Patient on prednisone, symbicort, and albuterol prn at home. - continue home meds - Mucinex DM and Tessalon perles added for cough Assessment & Plan (08/09/2021 1:35 AM CDT): Continue breathing treatments Assessment & Plan (06/04/2020 6:02 PM MARKETING PROGRAM COORDINATOR): Mild COPD exacerbation due to COVID-19, breath sounds diminished with mild end expiratory wheezing and a cough productive of small amounts of yellow sputum. Continue steroids for COVID-19 along with home Symbicort and albuterol p.r.n. COVID-19 05/29/2020 Assessment & Plan (06/04/2020 6:04 PM MARKETING PROGRAM COORDINATOR): Shortness of breath worsened since initial [...] 05/29/2020 Assessment & Plan (06/04/2020 5:59 PM MARKETING PROGRAM COORDINATOR): Unable to obtain CTA chest because of allergy to IV contrast, but symptoms are not suggestive of acute the and D-dimer is very slightly above the threshold for normal. Will treat with Lovenox at half therapeutic dose because of COVID-19. Rheumatoid arthritis involvi ng multiple sites with positive rheumatoid factor ([facility]) 05/29/2020 Assessment & Plan (08/09/2021 1:49 PM CDT): Holding Plaquenil and Celebrex. Continue prednisone daily. Assessment & Plan (08/09/2021 1:33 AM CDT): Holding Plaquenil. Continue prednisone daily. Assessment & Plan (06/04/2020 5:57 PM MARKETING PROGRAM COORDINATOR): Continue home RA regimen, will need [...] ordered Assessment & Plan (06/04/2020 5:58 PM MARKETING PROGRAM COORDINATOR): Uses CPAP at home, but does [...] on file Legal Sex Male 1:51 AM MARKETING PROGRAM COORDINATOR Gender Identity Not on file Sexual Orientation Not on file Obstetrics History Last Filed Vital Signs Vital Sign Reading Time Taken Comments Blood Pressure 122/73 03/03/2024 12:45 PM MARKETING PROGRAM COORDINATOR Pulse 94 03/03/2024 12:45 PM MARKETING PROGRAM COORDINATOR Temperature 37.6 C (99.7 F) 03/03/2024 6:46 AM MARKETING PROGRAM COORDINATOR Respiratory Rate 16 03/03/2024 12:45 PM MARKETING PROGRAM COORDINATOR Oxygen Saturation 95% 03/03/2024 12:45 PM MARKETING PROGRAM COORDINATOR Inhaled Oxygen Concentration - - Weight 97.1 kg (214 lb) 03/03/2024 6:46 AM MARKETING PROGRAM COORDINATOR Height 170.2 cm (5' 7 ) 03/03/2024 6:46 AM MARKETING PROGRAM COORDINATOR Body Mass Index 33.52 03/03/2024 6:46 AM MARKETING PROGRAM COORDINATOR Plan of Treatment Health Maintenance Due [...] minimal pain. Medical Devices Implanted Type Area Patrol Sergeant Device Identifier Shelf Expiration Date Model / Serial / Lot Other-See Comments Other - see comments Mode l: Knee Description:R. Total knee- 2 020 L. Total Knee-2015 Procedures Procedure Name Priority Date/Time Associated Diagnosis Comments EGFR STAT 03/03/2024 7:02 AM MARKETING PROGRAM COORDINATOR CT CHEST ABDOMEN PELVIS WO CONTRAST Schedule Routine, Read Routine (OP Routine) 01/21/2023 11:07 AM CDT HEPATITIS PANEL, ACUTE Routine 06/19/2020 8:11 PM CDT HEMOGLOBIN A1C Add-On 06/12/2020 11:07 AM MARKETING PROGRAM COORDINATOR from Last 3 Months or Most Recently Relevant to Health Maintenance Results * (ABNORMAL) eGFR (03/03/2024 7:02 AM MARKETING PROGRAM COORDINATOR) eGFR 47(L) >=60 mL/min/1. 73 m2 [...] last reviewed 2021. Blood 03/03/2024 7:02 AM MARKETING PROGRAM COORDINATOR 03/03/2024 7:06 AM MARKETING PROGRAM COORDINATOR Deandre Vasquez DO LAB BLOOD ORDERABLES Final Res ult Performing Organization Address City/[facility]/ZIP Co de Phone Number [address] [place], [place] [id number] * CT Chest Abdomen Pelvis WO Contrast (01/21/2023 11:07 AM CDT) Anatomical Region Laterality Modality Body N/A Computed Tomogra phy Arpit Han MD PhD IMG CT PROCEDURES Prudence l Result * Hepatitis panel, acute (06/19/2020 8:11 PM CDT) Hep A IgM Nonreactive Nonreactive [facility] Comment: Interpretive Data: If Hep A IgM Ab is reported as Equivocal, a new sample should be drawn in two weeks for testing. Current interpretive data was last revised on 19. Hep B core IgM Nonreactive Nonreactive [facility] Comment: Interpretive Data If HepB Core IgM Ab is reported as Equivocal, a new sample should be drawn in two weeks for testing. Current interpretive data was last revised on 19. Hep C Ab Nonreactive Nonreactive [facility] Comment: Interpretive Data Nonreactive: Antibodies to [...] revised on 2019. HepBsAg Nonreactive Nonreactive [facility] Blood specimen (specimen) 06/19/2020 8:11 PM CDT 06/19/2020 8:15 PM CDT Andres Zuñiga MD LAB MICROBIOLOGY - GENE RAL ORDERABLES Final Result Performing Organization Address City/[facility]/ZIP Co de Phone Number [address] [place] [address] * (ABNORMAL) Hemoglobin A1c (06/12/2020 11:07 AM MARKETING PROGRAM COORDINATOR) Hgb A1C 7.1(H) 4.0 - 5.6 % [address] Estimated Average Glucose 157 mg/dL [address] Comment: The ADA recommends reporting an estimated Average Glucose (eAG) with all Hemoglobin A1c results using the equation derived from a study of 507 normal and diabetic adults. Minority populations were underrepresented and children were not included. (Diabetes Care 31:1104-3994, 2008). The eAG is not equivalent to a fasting glucose. Blood specimen (specimen) 06/12/2020 11:07 AM MARKETING PROGRAM COORDINATOR 06/12/2020 11:07 AM MARKETING PROGRAM COORDINATOR [facility] MD LAB BLOOD ORDERABLES Final Res ult [address] Department [place] [address] from Last 3 Months or Most Recently Relevant to Health Maintenance Insurance MEDICARE [facility] MEDICARE [facility] MEDICARE SUPPLEMENT MEDICARE [facility] MEDICARE SUPPLEMENT Advance Directives For more information, please contact: [phone] * Full Code (Latest Code Status on [...] 12:19 PM 03/03/2018 4:40 PM Care Teams Hand Glove Cleaner Relationship Specialty Start Date End Date Dre Zavaleta DO [address] [place] [address] [address] [place] [address] PCP - General Internal Medicine 01/14/24 [place] [address] [address] [address] Consulting Physician Pulmonary Disease 06/25/20 Arpit Han MD PhD [address] [place] [address] Radiation Oncologist Radiation Oncology 10/04/21 [place] [address] [address] [address] Referring Physician Pulmonary Disease 10/04/21 Harvey Alex MD [address] [place] [id number] Referring Physician Hematology 02/01/22
--- OUTSIDE RECORDS SUMMARY | 2024-08-02 09:30 | XMS_ITS ---
Author Organization [facility] Address [address] [place] [address] Care Team Providers Care Keypunch Operators Supervisor Name Role Phone Zia Mercedes MD Unavailable [phone] Arpit Han MD PhD Unavailable + [phone] Zia Mercedes MD Unavailable [phone] Harvey Alex MD Unavailable [phone] Dre Zavaleta DO Primary Care Provider [phone] Active Problems Problem Noted Date Diagnosed Date [...] on chronic respiratory failure with hypoxi a ([facility]) 06/04/2020 Assessment & Plan (08/09/2021 [...] 06/04/2020 Assessment & Plan (06/04/2020 6:00 PM WEAPONS ENGINEER): Mild elevation of AST and ALT most likely due to acute infection. Will monitor while on remdesivir. Respiratory alkalosis 06/04/2020 Assessment & Plan (06/04/2020 6:01 PM WEAPONS ENGINEER): Due to hyperventilation from hypoxia on admission. Monitor respiratory function with supplemental oxygen. Chronic obstructive pulmonar y disease with acute exacerbation ([facility]) 06/04/2020 Assessment & Plan (08/09/2021 1:52 PM CDT): Patient on prednisone, symbicort, and albuterol prn at home. - continue home meds - Mucinex DM and Tessalon perles added for cough Assessment & Plan (08/09/2021 1:35 AM CDT): Continue breathing treatments Assessment & Plan (06/04/2020 6:02 PM WEAPONS ENGINEER): Mild COPD exacerbation due to COVID-19, breath sounds diminished with mild end expiratory wheezing and a cough productive of small amounts of yellow sputum. Continue steroids for COVID-19 along with home Symbicort and albuterol p.r.n. COVID-19 05/29/2020 Assessment & Plan (06/04/2020 6:04 PM WEAPONS ENGINEER): Shortness of breath worsened since initial diagnosis [...] 05/29/2020 Assessment & Plan (06/04/2020 5:59 PM WEAPONS ENGINEER): Unable to obtain CTA chest because of allergy to IV contrast, but symptoms are not suggestive of acute the and D-dimer is very slightly above the threshold for normal. Will treat with Lovenox at half therapeutic dose because of COVID-19. Rheumatoid arthritis involvi ng multiple sites with positive rheumatoid factor ([facility]) 05/29/2020 Assessment & Plan (08/09/2021 1:49 PM CDT): Holding Plaquenil and Celebrex. Continue prednisone daily. Assessment & Plan (08/09/2021 1:33 AM CDT): Holding Plaquenil. Continue prednisone daily. Assessment & Plan (06/04/2020 5:57 PM WEAPONS ENGINEER): Continue home RA regimen, will need to [...] ordered Assessment & Plan (06/04/2020 5:58 PM WEAPONS ENGINEER): Uses CPAP at home, but does not [...]
--- OUTSIDE RECORDS SUMMARY | 2024-08-02 09:30 | XMS_ITS | Clinical Summary ---
Author Organization [facility] Address [address] [place] [address] Care Team Providers Care Forestry Professor Name Role Phone Km Gipson MD Primary Care Provider [phone] Allergies Active Allergy Reactions Criticality Noted Date [...] take 0.5 tablet PO daily 1 Active [place]-3 Fatty Acids 1,000 mg Capsule Take 1,000 [...] H. Active fluticasone propionate (FLONASE) 50 mcg/spray [place], Suspension nasal inhaler Administer 2 Sprays in [...] Smoking Tobacco: Former Cigarettes 2 40 1 028 - 1998 Tobacco Cessation:Counseling Given: Not Answered Alcohol Use Standard Drinks/Week Comments Yes 0 (1 standard drink = 0.6 oz pur e alcohol) Sex and Gender Information Value Date Recorded Sex Assigned at Not on file Legal Sex Male 10:35 AM CIVIL ENGINEER Gender Identity Not on file Sexual Orientation Not on file Last Filed Vital Signs Vital Sign Reading Time Taken Comments Blood Pressure 131/71 02/13/2024 9:24 AM CIVIL ENGINEER Pulse 100 02/13/2024 9:24 AM CIVIL ENGINEER Temperature 36.6 C (97.8 F) 02/13/2024 9:24 AM CIVIL ENGINEER Respiratory Rate 16 02/13/2024 9:24 AM CIVIL ENGINEER Oxygen Saturation 93% 02/13/2024 9:24 AM CIVIL ENGINEER Inhaled Oxygen Concentration - - Weight 97.4 kg (214 lb 12.8 oz) 02/13/2024 9:24 AM CIVIL ENGINEER Height 175.3 cm (5' 9 ) 12/20/2021 9:31 AM CDT Body Mass Index 31.72 12/20/2021 9:31 AM CDT Plan of Treatment Upcoming Encounters Date Type Department Care Team (Late st Contact Info) Description 08/11/2024 10:00 AM CDT Office Visit [facility] Oncology and Hematology - [place] [address] [facility] [address] [place] [address] Harvey Alex MD [address] [facility] [address] [place] [address] Health Maintenance Due Date Last [...] Discontinued Insurance MEDICARE PART A AND B [facility] MEDICARE PART A AND B BCBS [facility] Care Teams Forestry Professor Relationship Specialty Start Date End Date Km Gipson MD [address] [place] [address] PCP - General Family Practice 01/28/23
--- OUTSIDE RECORDS SUMMARY | 2024-08-02 09:30 | XMS_ITS | Encounter Summary ---
Author Organization [facility] Address [address] [place] [address] Care Team Providers Care Oil Well Services Field Supervisor Name Role Phone Julius Encinas MD Primary Care Provider [phone] Valeriy Lawson MD Unavailable Encounter Details Date Type Department Care Team (Late st Contact Info) Description 08/24/2010 [facility] Outpatient Visit [facility] - Family Medicine [id number] [place] [address] Valeriy Lawson MD [address] [place], [place] [id number] Social History Tobacco Use Types Packs/Day Years Used Date Smoking Tobacco: Former Cigarettes 0 09/20/1992 - 09/20/2000 Smokeless Tobacco: Never Comments:unk date and mon Alcohol Use Standard Drinks/Week Comments No 0 (1 standard drink = 0.6 oz pur e alcohol) Sex and Gender Information Value Date Recorded Sex Assigned at Not on file Legal Sex Male 4:21 AM FIELD TRAINING MANAGER Gender Identity Not on file Sexual Orientation Not on file documented as of this encounter Plan of Treatment Not on file documented as of this encounter Visit Diagnoses Not on filedocumented in this encounter Care Teams Oil Well Services Field Supervisor Relationship Specialty Start Date End Date Julius Encinas MD [address] [place] [address] PCP - General 06/10/08 Valeriy Lawson MD [address] [place] [address] 11/13/09 documented as of this encounter
== END 2024-08-02 08:58 | disposition home or self-care (01) ==
PROVIDERS: PCP Nurse Practitioner; Visit Provider Internal Medicine
DX: C34.12 Malignant neoplasm of upper lobe, left bronchus or lung (principal); N20.0 Calculus of kidney; J43.9 Emphysema, unspecified
CPT/HCPCS: 71250; 74176

== ENCOUNTER 2024-08-11 09:29 | Outpatient (CLI) | payer MEDICARE, SELFPAY ==
[2024-08-11 09:49] LABS: Blood Urea Nitrogen 19 mg/dL (8-26); Carbon Dioxide 23 mmol/L (22-30); Chloride 101 mmol/L (98-109); Estimated Glomerular Filt Rate 34; Glucose 91 mg/dL (70-105); Ionized Calcium (POC) 1.04 mmol/L (1.11-1.31); Potassium 3.1 mmol/L (3.5-4.9); Sodium 140 mmol/L (138-146)
[2024-08-11 09:50] LABS: Basophils Absolute Auto 0.1 K/mm3 (0.0-0.1); Basophils Percent Auto 0.7 % (0.2-1.2); Eosinophils Absolute Auto 0.4 K/mm3 (0-0.3); Eosinophils Percent Auto 3.7 % (0-4.4); Hematocrit 36.5 % (42.0-52.0); Immature Granulocyte Absolute 0.06 K/mm3 (0.00-0.031); Immature Granulocyte Percent A 0.6 % (0-0.5); Lymphocytes Absolute Auto 1.48 K/mm3 (0.9-3.2); Lymphocytes Percent Auto 14.6 % (18.3-44.2); Mean Corpuscular HGB Conc 30.1 g/dl (32-36); Mean Corpuscular Hemoglobin 24.3 pg (26-34); Mean Corpuscular Volume 80.6 fl (80-100); Mean Platelet Volume 10.2 fl (7.4-10.4); Monocytes Absolute Auto 1.2 K/mm3 (0.1-0.6); Monocytes Percent Auto 11.4 % (2.6-8.5); Platelet Count Result 166 k/mm3 (150-375); Red Blood Count 4.53 M/mm3 (4.6-6.20); Red Cell Distribution Width 17.5 % (11.5-14.5); White Blood Count 10.1 K/mm3 (4.5-10.0)
--- OUTSIDE RECORDS SUMMARY | 2024-08-11 09:53 | XMS_ITS | Referral Summary ---
Author Organization [facility] Address [address] [place] [address] Care Team Providers Care Director Channel Name Role Phone Zia Mercedes MD Unavailable [phone] Arpit patton MD PhD Unavailable [phone] Zia Mercedes MD Unavailable [phone] Harvey Alex MD Unavailable [phone] Dre Zavaleta DO Primary Care Provider [phone] Allergies Active Allergy Reactions Criticality Noted Date [...] on chronic respiratory failure with hypoxi a ([facility]) 06/04/2020 Assessment & Plan (08/09/2021 1:50 PM [...] 06/04/2020 Assessment & Plan (06/04/2020 6:00 PM HEEL LINING PASTER): Mild elevation of AST and ALT most likely due to acute infection. Will monitor while on remdesivir. Respiratory alkalosis 06/04/2020 Assessment & Plan (06/04/2020 6:01 PM HEEL LINING PASTER): Due to hyperventilation from hypoxia on admission. Monitor respiratory function with supplemental oxygen. Chronic obstructive pulmonar y disease with acute exacerbation ([facility]) 06/04/2020 Assessment & Plan (08/09/2021 1:52 PM CDT): Patient on prednisone, symbicort, and albuterol prn at home. - continue home meds - Mucinex DM and Tessalon perles added for cough Assessment & Plan (08/09/2021 1:35 AM CDT): Continue breathing treatments Assessment & Plan (06/04/2020 6:02 PM HEEL LINING PASTER): Mild COPD exacerbation due to COVID-19, breath sounds diminished with mild end expiratory wheezing and a cough productive of small amounts of yellow sputum. Continue steroids for COVID-19 along with home Symbicort and albuterol p.r.n. COVID-19 05/29/2020 Assessment & Plan (06/04/2020 6:04 PM HEEL LINING PASTER): Shortness of breath worsened since initial diagnosis [...] 05/29/2020 Assessment & Plan (06/04/2020 5:59 PM HEEL LINING PASTER): Unable to obtain CTA chest because of allergy to IV contrast, but symptoms are not suggestive of acute the and D-dimer is very slightly above the threshold for normal. Will treat with Lovenox at half therapeutic dose because of COVID-19. Rheumatoid arthritis involvi ng multiple sites with positive rheumatoid factor ([facility]) 05/29/2020 Assessment & Plan (08/09/2021 1:49 PM CDT): Holding Plaquenil and Celebrex. Continue prednisone daily. Assessment & Plan (08/09/2021 1:33 AM CDT): Holding Plaquenil. Continue prednisone daily. Assessment & Plan (06/04/2020 5:57 PM HEEL LINING PASTER): Continue home RA regimen, will need to [...] ordered Assessment & Plan (06/04/2020 5:58 PM HEEL LINING PASTER): Uses CPAP at home, but does not [...] on file Legal Sex Male 1:51 AM HEEL LINING PASTER Gender Identity Not on file Sexual Orientation Not on file Last Filed Vital Signs Vital Sign Reading Time Taken Comments Blood Pressure 122/73 03/03/2024 12:45 PM HEEL LINING PASTER Pulse 94 03/03/2024 12:45 PM HEEL LINING PASTER Temperature 37.6 C (99.7 F) 03/03/2024 6:46 AM HEEL LINING PASTER Respiratory Rate 16 03/03/2024 12:45 PM HEEL LINING PASTER Oxygen Saturation 95% 03/03/2024 12:45 PM HEEL LINING PASTER Inhaled Oxygen Concentration - - Weight 97.1 kg (214 lb) 03/03/2024 6:46 AM HEEL LINING PASTER Height 170.2 cm (5' 7 ) 03/03/2024 6:46 AM HEEL LINING PASTER Body Mass Index 33.52 03/03/2024 6:46 AM HEEL LINING PASTER Plan of Treatment Not on file Goals Goal Patient Goal Type Associated Problems Recent Progress Patient-Stated? Author [facility] No Estelita Ornelas RN Note: Pt would like to complete ADLs, ride motorcycle with minimal pain. Medical Devices Implanted Type Area Implementation Lead Device Identifier Shelf Expiration Date Model / Serial / Lot Other-See Comments Other - see comments Bilatera l: Knee Description:R. Total knee- 2 020 L. Total Knee-2015 Procedures Procedure Name Priority Date/Time Associated Diagnosis Comments EGFR STAT 03/03/2024 7:[address] CHEST ABDOMEN PELVIS WO CONTRAST Schedule Routine, Read Routine (OP Routine) 01/21/2023 11:07 AM CDT HEMOGLOBIN A1C Add-On 06/12/2020 11:07 AM HEEL LINING PASTER from Last 3 Months or Most Recently Relevant to Health Maintenance Results * (ABNORMAL) eGFR (03/03/2024 7:02 AM HEEL LINING PASTER) [facility] eGFR 47(L) >=60 mL/min/1. 73 m2 Comment: [...] last reviewed 2021. Blood 03/03/2024 7:02 AM HEEL LINING PASTER 03/03/2024 7:06 AM HEEL LINING PASTER Deandre Vasquez DO LAB BLOOD ORDERABLES Final Res ult Performing Organization Address City/[facility]/ZIP Co de Phone Number [address] [address] [address] [place] [address] * CT Chest Abdomen Pelvis WO Contrast (01/21/2023 11:07 AM CDT) Anatomical Region Laterality Modality Body N/A Computed Tomogra phy Arpit Han MD PhD IMG CT PROCEDURES Prudence l Result * (ABNORMAL) Hemoglobin A1c (06/12/2020 11:07 AM HEEL LINING PASTER) Hgb A1C 7.1(H) 4.0 - 5.6 % ALICIA Estimated Average Glucose 157 mg/dL ALICIA Comment: The ADA recommends reporting an estimated Average Glucose (eAG) with all Hemoglobin A1c results using the equation derived from a study of 507 normal and diabetic adults. Minority populations were underrepresented and children were not included. (Diabetes Care 31:0848-9199, 2008). The eAG is not equivalent to a fasting glucose. Blood specimen (specimen) 06/12/2020 11:07 AM HEEL LINING PASTER 06/12/2020 11:07 AM HEEL LINING PASTER Radha Vail MD LAB BLOOD ORDERABLES Final Res ult Performing Organization Address City/[facility]/ZIP Co de Phone Number [address] [address] [employer] [place], [place] [id number] from Last 3 Months or Most Recently Relevant to Health Maintenance Insurance MEDICARE [facility] Member Subscriber Plan / Payer (Ef fective 2012-Present) Name:Meir Weaver Relation to Subscriber:Self Name:MEIR WEAVER Clayton Payer ID:[id number] (NAIC) Type:[facility] Address: [address] [place] [address] MEDICARE BLUE CROSS MEDICARE SUPPLEMENT MEDICARE [facility] MEDICARE SUPPLEMENT Advance Directives For more information, please contact: [phone] * Full Code (Latest Code Status on [...] 12:19 PM 03/03/2018 4:40 PM Care Teams Director Channel Relationship Specialty Start Date End Date Dre Zavaleta DO [address] [address] PCP - General Internal Medicine 01/14/24 [place] [address] [address] [address] Consulting Physician Pulmonary Disease 06/25/20 Arpit Han MD PhD [address] [place] [address] Radiation Oncologist Radiation Oncology 10/04/21 [place] [address] [address] [address] Referring Physician Pulmonary Disease 10/04/21 Harvey Alex MD [address] [address] Referring Physician Hematology 02/01/22
--- OUTSIDE RECORDS SUMMARY | 2024-08-11 09:53 | XMS_ITS ---
Author Organization [facility] Address [address] [place] [address] Care Team Providers Care Api Developer Name Role Phone Zia Mercedes MD Unavailable [phone] Arpit Han MD PhD Unavailable [phone] Zia Mercedes MD Unavailable [phone] Harvey Alex MD Unavailable [phone] Dre Zavaleta DO Primary Care Provider [phone] Active Problems Problem Noted Date Diagnosed Date [...] on chronic respiratory failure with hypoxi a ([facility]) 06/04/2020 Assessment & Plan (08/09/2021 1:50 [...] 06/04/2020 Assessment & Plan (06/04/2020 6:00 PM MEMORIAL ADVISER): Mild elevation of AST and ALT most likely due to acute infection. Will monitor while on remdesivir. Respiratory alkalosis 06/04/2020 Assessment & Plan (06/04/2020 6:01 PM MEMORIAL ADVISER): Due to hyperventilation from hypoxia on admission. Monitor respiratory function with supplemental oxygen. Chronic obstructive pulmonar y disease with acute exacerbation ([facility]) 06/04/2020 Assessment & Plan (08/09/2021 1:52 PM CDT): Patient on prednisone, symbicort, and albuterol prn at home. - continue home meds - Mucinex DM and Tessalon perles added for cough Assessment & Plan (08/09/2021 1:35 AM CDT): Continue breathing treatments Assessment & Plan (06/04/2020 6:02 PM MEMORIAL ADVISER): Mild COPD exacerbation due to COVID-19, breath sounds diminished with mild end expiratory wheezing and a cough productive of small amounts of yellow sputum. Continue steroids for COVID-19 along with home Symbicort and albuterol p.r.n. COVID-19 05/29/2020 Assessment & Plan (06/04/2020 6:04 PM MEMORIAL ADVISER): Shortness of breath worsened since initial diagnosis [...] 05/29/2020 Assessment & Plan (06/04/2020 5:59 PM MEMORIAL ADVISER): Unable to obtain CTA chest because of allergy to IV contrast, but symptoms are not suggestive of acute the and D-dimer is very slightly above the threshold for normal. Will treat with Lovenox at half therapeutic dose because of COVID-19. Rheumatoid arthritis involvi ng multiple sites with positive rheumatoid factor ([facility]) 05/29/2020 Assessment & Plan (08/09/2021 1:49 PM CDT): Holding Plaquenil and Celebrex. Continue prednisone daily. Assessment & Plan (08/09/2021 1:33 AM CDT): Holding Plaquenil. Continue prednisone daily. Assessment & Plan (06/04/2020 5:57 PM MEMORIAL ADVISER): Continue home RA regimen, will need to [...] ordered Assessment & Plan (06/04/2020 5:58 PM MEMORIAL ADVISER): Uses CPAP at home, but does not [...]
--- OUTSIDE RECORDS SUMMARY | 2024-08-11 09:54 | XMS_ITS | Clinical Summary ---
Author Organization [facility] Address [address] [place] [address] Care Team Providers Care Percussion Instructor Name Role Phone Unavailable Primary Care Provider [...]
--- OUTSIDE RECORDS SUMMARY | 2024-08-11 09:54 | XMS_ITS | Clinical Summary ---
Author Organization [facility] Address [address] [place] [address] Care Team Providers Care Building Construction Estimator Name Role Phone Julius Encinas MD Primary Care Provider [phone] Valeriy Lawson MD Unavailable [phone] Source Comments [facility],non-owned Affiliates and Associated Physician Practices is amultiple site organization consisting of ambulatory clinics and hospital sitesin [place], [place], [place] and [place]. This disclosure is being madepursuant to the Care Everywhere program and may not contain all information available regarding this patient. Last updated 17.[facility] Allergies Active Allergy Reactions Criticality [...] VITAMINS PO Take by mouth daily. Active [place]ony-3 Fatty Acids (FISH OIL) 1200 MG CAPS [...] (08/19/2011): Start date 1999 Rheumatoid arthritis of [facility] sites with negative rheumatoid factor 05/25/2008 Overview [...] on file Legal Sex Male 4:21 AM MUSIC INTERN Gender Identity Not on file Sexual Orientation [...] patient's age to complete this topic Insurance [facility] Address: [facility] [id number] [place] [address] MEDICARE SELF PAY NO INSURANCE Member Subscriber Plan / Payer (Ef fective for All Dates) Name:Meg Dilan E Member ID:Not on file Relation to Subscriber:Not on file Name:MEGPAULODILAN Subscriber ID:Not on file (Home) Address: [address] [place] [address] Payer ID:Not on file Group ID:Not on file Type:Self Pay Address: [place], [place] MEDICARE ANTHEM MEDICARE ANTHEM Care Teams Building Construction Estimator Relationship Specialty Start Date End Date Julius Encinas MD [facility] [place] [address] PCP - General 06/10/08 Valeriy Lawson MD [address] [place] [address] 11/13/09
--- OUTSIDE RECORDS SUMMARY | 2024-08-11 09:54 | XMS_ITS | Encounter Summary ---
Author Organization [facility] Address [address] [facility] [place] [address] Care Team Providers Care Appraiser Name Role Phone Julius Encinas MD Primary Care Provider [phone] Valeriy Lawson MD Unavailable [phone] Encounter Details Date Type Department Care Team (Late st Contact Info) Description 02/11/2014 Therapy Visit [facility]NAL [facility] DEPT Valeriy Lawson MD [address] [place] [address] Social History Tobacco Use Types Packs/Day Years Used Date Smoking Tobacco: Former Cigarettes 0 09/20/1992 - 09/20/2000 Smokeless Tobacco: Never Comments:unk date and mon Alcohol Use Standard Drinks/Week Comments No 0 (1 standard drink = 0.6 oz pur e alcohol) Sex and Gender Information Value Date Recorded Sex Assigned at Not on file Legal Sex Male 4:21 AM YARDING SUPERVISOR Gender Identity Not on file Sexual Orientation Not on file documented as of this encounter Plan of Treatment Not on file documented as of this encounter Visit Diagnoses Not on filedocumented in this encounter Care Teams Appraiser Relationship Specialty Start Date End Date Julius Encinas MD [address] [place] [address] PCP - General 06/10/08 Valeriy Lawson MD [address] [place] [address] 11/13/09 documented as of this encounter
--- OUTSIDE RECORDS SUMMARY | 2024-08-11 09:54 | XMS_ITS | Clinical Summary ---
Author Organization [facility] Address [address] [place] [address] Care Team Providers Care Administration Manager Name Role Phone Dre Zavaleta DO Primary Care Provider [phone] Allergies Active Allergy Reactions Criticality Noted Date [...] take 0.5 tablet PO daily 1 Active [place]-3 Fatty Acids 1,000 mg Capsule Take 1,000 [...] H. Active fluticasone propionate (FLONASE) 50 mcg/spray [place], Suspension nasal inhaler Administer 2 Sprays in [...] Smoking Tobacco: Former Cigarettes 2 40 1 958 - 1998 Tobacco Cessation:Counseling Given: Not Answered Alcohol Use Standard Drinks/Week Comments Yes 0 (1 standard drink = 0.6 oz pur e alcohol) Sex and Gender Information Value Date Recorded Sex Assigned at Not on file Legal Sex Male 10:35 AM DAIRY ASSOCIATE Gender Identity Not on file Sexual Orientation Not on file Last Filed Vital Signs Vital Sign Reading Time Taken Comments Blood Pressure 131/71 02/13/2024 9:24 AM DAIRY ASSOCIATE Pulse 100 02/13/2024 9:24 AM DAIRY ASSOCIATE Temperature 36.6 C (97.8 F) 02/13/2024 9:24 AM DAIRY ASSOCIATE Respiratory Rate 16 02/13/2024 9:24 AM DAIRY ASSOCIATE Oxygen Saturation 93% 02/13/2024 9:24 AM DAIRY ASSOCIATE Inhaled Oxygen Concentration - - Weight 97.4 kg (214 lb 12.8 oz) 02/13/2024 9:24 AM DAIRY ASSOCIATE Height 175.3 cm (5' 9 ) 12/20/2021 9:31 AM CDT Body Mass Index 31.72 12/20/2021 9:31 AM CDT Plan of Treatment Upcoming Encounters Date Type Department Care Team (Late st Contact Info) Description 08/11/2024 10:00 AM CDT Office Visit [facility] Oncology and Hematology - [place] [address] [facility] [address] [place] [address] Harvey Alex MD [address] [facility] [address] [place] [address] Arrived Health Maintenance Due Date Last Done Comments [...] Discontinued Insurance MEDICARE PART A AND B [facility] MEDICARE PART A AND B [facility] Care Teams Administration Manager Relationship Specialty Start Date End Date Dre Zavaleta DO [address] [facility] [address] [place] [address] PCP - General Internal Medicine 08/11/24
--- OUTSIDE RECORDS SUMMARY | 2024-08-11 09:54 | XMS_ITS | Encounter Summary ---
Author Organization [facility] Address [address] [place] [address] Care Team Providers Care Warehouse Shipping Receiving Clerk Name Role Phone Julius Encinas MD Primary Care Provider [phone] Valeriy Lawson MD Unavailable [phone] Encounter Details Date Type Department Care Team (Late st Contact Info) Description 04/13/2014 Therapy Visit EXTERNAL NON-[facility] DEPT Unknown, Provider Social History Tobacco Use Types Packs/Day Years Used Date Smoking Tobacco: Former Cigarettes 0 09/20/1992 - 09/20/2000 Smokeless Tobacco: Never Comments:unk date and mon Alcohol Use Standard Drinks/Week Comments No 0 (1 standard drink = 0.6 oz pur e alcohol) Sex and Gender Information Value Date Recorded Sex Assigned at Not on file Legal Sex Male 4:21 AM GRASSROOTS ORGANIZER Gender Identity Not on file Sexual Orientation Not on file documented as of this encounter Plan of Treatment Not on file documented as of this encounter Visit Diagnoses Not on filedocumented in this encounter Care Teams Warehouse Shipping Receiving Clerk Relationship Specialty Start Date End Date Julius Encinas MD [address] [place] [address] PCP - General 06/10/08 Valeriy Lawson MD [address] [place] [address] 11/13/09 documented as of this encounter
--- OUTSIDE RECORDS SUMMARY | 2024-08-11 09:54 | XMS_ITS | Encounter Summary ---
Author Organization [facility] Health Address [address] [place] [address] Care Team Providers Care Seo Executive Name Role Phone Julius Encinas MD Primary Care Provider [phone] Valeriy Lawson MD Unavailable [phone] Encounter Details Date Type Department Care Team (Late st Contact Info) Description 09/23/2013 [facility] Outpatient Visit EXTERNAL NON-[facility] DEPT Valeriy Lawson MD [address] [place] [id number] Social History Tobacco Use Types Packs/Day Years Used Date Smoking Tobacco: Former Cigarettes 0 09/20/1992 - 09/20/2000 Smokeless Tobacco: Never Comments:unk date and mon Alcohol Use Standard Drinks/Week Comments No 0 (1 standard drink = 0.6 oz pur e alcohol) Sex and Gender Information Value Date Recorded Sex Assigned at Not on file Legal Sex Male 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
--- OUTSIDE RECORDS SUMMARY | 2024-08-11 09:54 | XMS_ITS | Clinical Summary ---
Author Organization [facility] Address [address] [place] [address] Care Team Providers Care Registered Phlebotomist Part Time Name Role Phone Zia Mercedes MD Unavailable [phone] Arpit patton MD PhD Unavailable [phone] Zia Mercedes MD Unavailable [phone] Harvey Alex MD Unavailable [phone] Dre Zavaleta DO Primary Care Provider [phone] Allergies Active Allergy Reactions Criticality Noted Date [...] chronic respiratory failure with hypoxi a ([facility]) 06/04/2020 Assessment & Plan [...] 06/04/2020 Assessment & Plan (06/04/2020 6:00 PM QUALITY AUDIT REPRESENTATIVE): Mild elevation of AST and ALT most likely due to acute infection. Will monitor while on remdesivir. Respiratory alkalosis 06/04/2020 Assessment & Plan (06/04/2020 6:01 PM QUALITY AUDIT REPRESENTATIVE): Due to hyperventilation from hypoxia on admission. Monitor respiratory function with supplemental oxygen. Chronic obstructive pulmonar y disease with acute exacerbation ([facility]) 06/04/2020 Assessment & Plan (08/09/2021 1:52 PM CDT): Patient on prednisone, symbicort, and albuterol prn at home. - continue home meds - Mucinex DM and Tessalon perles added for cough Assessment & Plan (08/09/2021 1:35 AM CDT): Continue breathing treatments Assessment & Plan (06/04/2020 6:02 PM QUALITY AUDIT REPRESENTATIVE): Mild COPD exacerbation due to COVID-19, breath sounds diminished with mild end expiratory wheezing and a cough productive of small amounts of yellow sputum. Continue steroids for COVID-19 along with home Symbicort and albuterol p.r.n. COVID-19 05/29/2020 Assessment & Plan (06/04/2020 6:04 PM QUALITY AUDIT REPRESENTATIVE): Shortness of breath worsened since initial diagnosis [...] 05/29/2020 Assessment & Plan (06/04/2020 5:59 PM QUALITY AUDIT REPRESENTATIVE): Unable to obtain CTA chest because of allergy to IV contrast, but symptoms are not suggestive of acute the and D-dimer is very slightly above the threshold for normal. Will treat with Lovenox at half therapeutic dose because of COVID-19. Rheumatoid arthritis involvi ng multiple sites with positive rheumatoid factor ([facility]) 05/29/2020 Assessment & Plan (08/09/2021 1:49 PM CDT): Holding Plaquenil and Celebrex. Continue prednisone daily. Assessment & Plan (08/09/2021 1:33 AM CDT): Holding Plaquenil. Continue prednisone daily. Assessment & Plan (06/04/2020 5:57 PM QUALITY AUDIT REPRESENTATIVE): Continue home RA regimen, will need to [...] ordered Assessment & Plan (06/04/2020 5:58 PM QUALITY AUDIT REPRESENTATIVE): Uses CPAP at home, but does not [...] on file Legal Sex Male 1:51 AM QUALITY AUDIT REPRESENTATIVE Gender Identity Not on file Sexual Orientation Not on file Obstetrics History Last Filed Vital Signs Vital Sign Reading Time Taken Comments Blood Pressure 122/73 03/03/2024 12:45 PM QUALITY AUDIT REPRESENTATIVE Pulse 94 03/03/2024 12:45 PM QUALITY AUDIT REPRESENTATIVE Temperature 37.6 C (99.7 F) 03/03/2024 6:46 AM QUALITY AUDIT REPRESENTATIVE Respiratory Rate 16 03/03/2024 12:45 PM QUALITY AUDIT REPRESENTATIVE Oxygen Saturation 95% 03/03/2024 12:45 PM QUALITY AUDIT REPRESENTATIVE Inhaled Oxygen Concentration - - Weight 97.1 kg (214 lb) 03/03/2024 6:46 AM QUALITY AUDIT REPRESENTATIVE Height 170.2 cm (5' 7 ) 03/03/2024 6:46 AM QUALITY AUDIT REPRESENTATIVE Body Mass Index 33.52 03/03/2024 6:46 AM QUALITY AUDIT REPRESENTATIVE Plan of Treatment Health Maintenance Due Date [...] 03/03/2025 03/03/2024, 12/2023, 03/16/2023, Additional history exists Abdominal Aortic Aneurysm (A AA) Screen Completed 01/21/2023, 07/15/2022, 06/27/2017 Goals Goal Patient Goal Type Associated Problems Recent Progress Patient-Stated? Author [facility] Estelita Erickson, RN Note: Pt would like to complete ADLs, ride motorcycle with minimal pain. Medical Devices Implanted Type Area Barrel Assembler Device Identifier Shelf Expiration Date Model / Serial / Lot Other-See Comments Other - see comments Mode l: Knee Description:R. Total knee- 2 020 L. Total Knee-2015 Procedures Procedure Name Priority Date/Time Associated Diagnosis Comments EGFR STAT 03/03/2024 7:02 AM QUALITY AUDIT REPRESENTATIVE CT CHEST ABDOMEN PELVIS WO CONTRAST Schedule Routine, Read Routine (OP Routine) 01/21/2023 11:07 AM CDT HEMOGLOBIN A1C Add-On 06/12/2020 11:07 AM QUALITY AUDIT REPRESENTATIVE from Last 3 Months or Most Recently Relevant to Health Maintenance Results * (ABNORMAL) eGFR (03/03/2024 7:02 AM QUALITY AUDIT REPRESENTATIVE) eGFR 47(L) >=60 mL/min/1. 73 m2 Comment: [...] last reviewed 2021. Blood 03/03/2024 7:02 AM QUALITY AUDIT REPRESENTATIVE 03/03/2024 7:06 AM QUALITY AUDIT REPRESENTATIVE us Deandre Vasquez DO LAB BLOOD ORDERABLES Final Res ult [address] [address] [address] Department [place] [address] * CT Chest Abdomen Pelvis WO Contrast (01/21/2023 11:07 AM CDT) Anatomical Region Laterality Modality Body N/A Computed Tomogra phy Arpit Han MD PhD IMG CT PROCEDURES Prudence l Result * (ABNORMAL) Hemoglobin A1c (06/12/2020 11:07 AM QUALITY AUDIT REPRESENTATIVE) Hgb A1C 7.1(H) 4.0 - 5.6 % ALICIA Estimated Average Glucose 157 mg/dL ALICIA Comment: The ADA recommends reporting an estimated Average Glucose (eAG) with all Hemoglobin A1c results using the equation derived from a study of 507 normal and diabetic adults. Minority populations were underrepresented and children were not included. (Diabetes Care 31:1795-1754, 2008). The eAG is not equivalent to a fasting glucose. Blood specimen (specimen) 06/12/2020 11:07 AM QUALITY AUDIT REPRESENTATIVE 06/12/2020 11:07 AM QUALITY AUDIT REPRESENTATIVE Radha Vail MD LAB BLOOD ORDERABLES Final Res ult [address] Department [place] [address] from Last 3 Months or Most Recently Relevant to Health Maintenance Insurance MEDICARE [facility] MEDICARE [employer] MEDICARE SUPPLEMENT MEDICARE [facility] MEDICARE SUPPLEMENT Advance Directives For more information, please contact: [phone] * Full Code (Latest Code Status on [...] 12:19 PM 03/03/2018 4:40 PM Care Teams Registered Phlebotomist Part Time Relationship Specialty Start Date End Date Dre Zavaleta DO [address] [place], [place] [id number] PCP - General Internal Medicine 01/14/24 [place] [address] [address] Consulting Physician Pulmonary Disease 06/25/20 Arpit Han MD PhD [address] [place] [address] Radiation Oncologist Radiation Oncology 10/04/21 [place] [address] [place] [address] Referring Physician Pulmonary Disease 10/04/21 Harvey Alex MD [address] [place] [address] Referring Physician Hematology 02/01/22
--- OUTSIDE RECORDS SUMMARY | 2024-08-11 09:54 | XMS_ITS | Encounter Summary ---
Author Organization [facility] Address [address] [place] [address] Care Team Providers Care Director Corporate Communications Name Role Phone Julius Encinas MD Primary Care Provider Valeriy Lawson MD Unavailable [phone] Encounter Details Date Type Department Care Team (Late st Contact Info) Description 08/24/2010 [facility] Outpatient Visit [facility] - Family Medicine [id number] [place] [phone] Valeriy Lawson MD [address] [place], [place] [id number] Social History Tobacco Use Types Packs/Day Years Used Date Smoking Tobacco: Former Cigarettes 0 09/20/1992 - 09/20/2000 Smokeless Tobacco: Never Comments:unk date and mon Alcohol Use Standard Drinks/Week Comments No 0 (1 standard drink = 0.6 oz pur e alcohol) Sex and Gender Information Value Date Recorded Sex Assigned at Not on file Legal Sex Male 4:21 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
--- OUTSIDE RECORDS SUMMARY | 2024-08-11 09:54 | XMS_ITS | Encounter Summary ---
Author Organization [facility] Health Address [address] [place] [address] Care Team Providers Care Line O Scribe Operator Name Role Phone Julius Encinas MD Primary Care Provider [phone] Valeriy Lawson MD Unavailable [phone] Encounter Details Date Type Department Care Team (Late st Contact Info) Description 02/10/2014 [facility] Outpatient Visit EXTERNAL NON-[facility] DEPT Valeriy Lawson MD [address] [place] [id number] Social History Tobacco Use Types Packs/Day Years Used Date Smoking Tobacco: Former Cigarettes 0 09/20/1992 - 09/20/2000 Smokeless Tobacco: Never Comments:unk date and mon Alcohol Use Standard Drinks/Week Comments No 0 (1 standard drink = 0.6 oz pur e alcohol) Sex and Gender Information Value Date Recorded Sex Assigned at Not on file Legal 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
--- OUTSIDE RECORDS SUMMARY | 2024-08-11 09:54 | XMS_ITS | Encounter Summary ---
Author Organization [facility] Health Address [address] [facility] [place] [address] Care Team Providers Care Carbon Capture Power Plant Operator Name Role Phone Julius Encinas MD Primary Care Provider [phone] Valeriy Lawson MD Unavailable [phone] Encounter Details Date Type Department Care Team (Late st Contact Info) Description 05/04/2013 [facility] Outpatient Visit EXTERNAL NON-[facility] DEPT Valeriy Lawson MD [address] [place] [address] Social History Tobacco Use Types Packs/Day Years Used Date Smoking Tobacco: Former Cigarettes 0 09/20/1992 - 09/20/2000 Smokeless Tobacco: Never Comments:unk date and mon Alcohol Use Standard Drinks/Week Comments No 0 (1 standard drink = 0.6 oz pur e alcohol) Sex and Gender Information Value Date Recorded Sex Assigned at Not on file Legal Sex Male 4:21 AM HISTOLOGIC AIDE Gender Identity Not on file Sexual Orientation Not on file documented as of this encounter Plan of Treatment Not on file documented as of this encounter Visit Diagnoses Not on filedocumented in this encounter Care Teams Carbon Capture Power Plant Operator Relationship Specialty Start Date End Date Julius Encinas MD [address] [place] [address] PCP - General 06/10/08 Valeriy Lawson MD [address] [place] [address] 11/13/09 documented as of this encounter
[2024-08-11 11:53] LABS: Alanine Aminotransferase 43 U/L (6-50); Albumin Level 3.6 g/dL (3.5-5.1); Alkaline Phosphatase 211 U/L (38-126); Anion Gap 10 mmol/L (4-12); Aspartate Amino Transferase 51 U/L (17-59); Bilirubin,Total 0.6 mg/dL (0.2-1.3); Blood Urea Nitrogen 21 mg/dL (9-20); Carbon Dioxide 25 mmol/L (22-30); Chloride 103 mmol/L (98-107); Estimated Glomerular Filt Rate 38; Glucose 89 mg/dL (65-110); Potassium 3.1 mmol/L (3.4-5.0); Sodium 138 mmol/L (137-145)
== END 2024-08-11 09:30 | disposition home or self-care (01) ==
LOC: ANHLAB 09:30
PROVIDERS: PCP Nurse Practitioner; Visit Provider Internal Medicine Hematology & Oncology
DX: C34.12 Malignant neoplasm of upper lobe, left bronchus or lung (principal)
CPT/HCPCS: 36415; 80047; 80053; 85025

== ENCOUNTER 2024-08-26 13:52 | Emergency (ER) | payer MEDICARE, SELFPAY ==
--- NOTE | ~2024-08-26 | XR_ITS ---
XR chest 2V Ordering provider: Maryse Cary NP History: 79 years Male with . orthopnea, cough . Comparison: None. FINDINGS: MEDIASTINUM: The cardiac silhouette is slightly enlarged. LUNGS: No effusions or pneumothorax. Subsegmental atelectasis in the left mid zone. Possibility of no dule in this area is not excluded. Follow-up advised. Prominent markings in the left and right lower lobe. OTHER: No free air under the diaphragm. Degenerative changes of the spine. IMPRESSION: Subsegmental atelectasis in the left midzone. Nodule in this area is not excluded. Follow-up in [address] is advised. Prominent markings in the left and right lower lobe which may indicate early atelectasis versus pneum onia. Reviewed, dictated and finalized at location A. IMPRESSION: Subsegmental atelectasis in the left midzone. Nodule in this area is not exclud ed. Follow-up in [address] is advised. Prominent markings in the left and right lower lobe which may indicate early at electasis versus pneumonia.
--- OUTSIDE RECORDS SUMMARY | 2024-08-26 13:56 | XMS_ITS | Encounter Summary ---
Author Organization [facility] Address [address] [place] [address] Care Team Providers Care Blending Tank Helper Name Role Phone Julius Encinas MD Primary Care Provider [phone] Valeriy Lawson MD Unavailable [phone] Encounter Details Date Type Department Care Team (Late st Contact Info) Description 08/24/2010 [facility] Outpatient Visit [facility] - Family Medicine [id number] [place] [phone] Valeriy Lawson MD [address] [place], [place] [id number] Social History Tobacco Use Types Packs/Day Years Used Date Smoking Tobacco: Former Cigarettes 0 09/20/1992 - 09/20/2000 Smokeless Tobacco: Never Comments:unk date and mon Alcohol Use Standard Drinks/Week Comments No 0 (1 standard drink = 0.6 oz pur e alcohol) Sex and Gender Information Value Date Recorded Sex Assigned at Not on file Legal 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
--- OUTSIDE RECORDS SUMMARY | 2024-08-26 13:56 | XMS_ITS | Clinical Summary ---
Author Organization [facility] Address [address] [place] [address] Care Team Providers Care Plater Printed Circuit Board Panels Name Role Phone Zia Mercedes MD Unavailable [phone] Arpit patton MD PhD Unavailable [phone] Zia Mercedes MD Unavailable [phone] Harvey Alex MD Unavailable [phone] Dre Zavaleta DO Primary Care Provider [phone] Allergies Active Allergy Reactions Criticality Noted Date [...] on chronic respiratory failure with hypoxi a ([facility]) 06/04/2020 Assessment & Plan [...] 06/04/2020 Assessment & Plan (06/04/2020 6:00 PM JET DYEING MACHINE TENDER): Mild elevation of AST and ALT most likely due to acute infection. Will monitor while on remdesivir. Respiratory alkalosis 06/04/2020 Assessment & Plan (06/04/2020 6:01 PM JET DYEING MACHINE TENDER): Due to hyperventilation from hypoxia on admission. Monitor respiratory function with supplemental oxygen. Chronic obstructive pulmonar y disease with acute exacerbation ([facility]) 06/04/2020 Assessment & Plan (08/09/2021 1:52 PM CDT): Patient on prednisone, symbicort, and albuterol prn at home. - continue home meds - Mucinex DM and Tessalon perles added for cough Assessment & Plan (08/09/2021 1:35 AM CDT): Continue breathing treatments Assessment & Plan (06/04/2020 6:02 PM JET DYEING MACHINE TENDER): Mild COPD exacerbation due to COVID-19, breath sounds diminished with mild end expiratory wheezing and a cough productive of small amounts of yellow sputum. Continue steroids for COVID-19 along with home Symbicort and albuterol p.r.n. COVID-19 05/29/2020 Assessment & Plan (06/04/2020 6:04 PM JET DYEING MACHINE TENDER): Shortness of breath worsened since initial diagnosis [...] 05/29/2020 Assessment & Plan (06/04/2020 5:59 PM JET DYEING MACHINE TENDER): Unable to obtain CTA chest because of allergy to IV contrast, but symptoms are not suggestive of acute the and D-dimer is very slightly above the threshold for normal. Will treat with Lovenox at half therapeutic dose because of COVID-19. Rheumatoid arthritis involvi ng multiple sites with positive rheumatoid factor ([facility]) 05/29/2020 Assessment & Plan (08/09/2021 1:49 PM CDT): Holding Plaquenil and Celebrex. Continue prednisone daily. Assessment & Plan (08/09/2021 1:33 AM CDT): Holding Plaquenil. Continue prednisone daily. Assessment & Plan (06/04/2020 5:57 PM JET DYEING MACHINE TENDER): Continue home RA regimen, will need to [...] ordered Assessment & Plan (06/04/2020 5:58 PM JET DYEING MACHINE TENDER): Uses CPAP at home, but does not [...] 1:33 AM CDT): Persistent. Continue IV fluids Encounters Date Type Department Care Team Description 08/21/2024 12:55 PM CDT - 08/21/2024 8:18 PM CDT Emergency [facility] Emergency Department [address] [place] [address] Aaron Grimaldo MD Dark stools (Primary Dx); Chronic diarrhea Discharge Disposition: Discharge to home or self care from Last 3 Months Immunizations Immunization Administration Dates Next Due Influenza, [...] making you feel afraid or unsafe? Denies 08/21/2024 Sex and Gender Information Value Date Recorded Sex Assigned at Not on file Legal Sex Male 1:51 AM JET DYEING MACHINE TENDER Gender Identity Not on file Sexual Orientation Not on file Obstetrics History Last Filed Vital Signs Vital Sign Reading Time Taken Comments Blood Pressure 144/61 08/21/2024 8:00 PM CDT Pulse 72 08/21/2024 8:10 PM CDT Temperature 37 C (98.6 F) 08/21/2024 12:53 PM CDT Respiratory Rate 19 08/21/2024 8:10 PM CDT Oxygen Saturation 97% 08/21/2024 8:10 PM CDT Inhaled Oxygen Concentration - - Weight 92.5 kg (204 lb) 08/21/2024 12:51 PM CDT Height 170.2 cm (5' 7 ) 08/21/2024 12:51 PM CDT Body Mass Index 31.95 08/21/2024 12:51 PM CDT Plan of Treatment Health Maintenance Due [...] Vaccine (Season Ended) 2024 12/07/19 20 eGFR 08/21/2025 08/21/2024, 11/10/2023, 01/14/2024, Additional history exists Abdominal Aortic Aneurysm (A AA) Screen Completed 01/21/2023, 07/15/2022, 06/27/2017 Goals Goal Patient Goal Type Associated Problems Recent Progress Patient-Stated? Author [facility] Estelita Erickson, RN Note: Pt would like to complete ADLs, ride motorcycle with minimal pain. Medical Devices Implanted Type Area Air And Hydronic Balancing Technician Device Identifier Shelf Expiration Date Model / Serial / Lot Other-See Comments Other - see comments Bilatera l: Knee Description:R. Total knee- 020 L. Total Knee-2014 Procedures Procedure Name Priority Date/Time Associated Diagnosis Comments TROPONIN T HIGH-SENSITIVITY 4-HR Timed 08/21/2024 6:12 PM CDT XR CHEST 1 VIEW ED Urgent/IP Urgent 08/21/2024 4:42 PM CDT TROPONIN T HIGH-SENSITIVITY 2-HOUR Timed 08/21/2024 4:13 PM CDT URINALYSIS AND REFLEX TO MICROSCOPIC AND CULTURE STAT 08/21/2024 4:00 PM CDT EGFR STAT 08/21/2024 1:41 PM CDT DIFFERENTIAL AUTO STAT 08/21/2024 1:4 1 PM CDT TROPONIN T HIGH-SENSITIVITY SERIES (BASELINE, 2HR, 4HR, 6HR) STAT 08/21/2024 1:41 PM CDT LIPASE STAT 08/21/2024 1:41 PM CDT COMPREHENSIVE METABOLIC PANEL STAT 08/21/2024 1:41 PM CDT CBC WITH AUTO DIFFERENTIAL STAT 08/21/2024 1:41 PM CDT ECG 12-LEAD STAT 08/21/2024 12:[address] CHEST ABDOMEN PELVIS WO CONTRAST Schedule Routine, Read Routine (OP Routine) 01/21/2023 11:07 AM CDT HEMOGLOBIN A1C Add-On 06/12/2020 11:07 AM JET DYEING MACHINE TENDER from Last 3 Months or Most Recently Relevant to Health Maintenance Results * Troponin T high-sensitivity 4-hour (08/21/2024 6:12 PM CDT) Trop T hs 22 <=22 ng/L Comment: Interpretive Data For further hscTnT resources including the diagnostic algorithm and an aid in interpretation, copy and paste this link: https://nrl.testcatalog.org/show/hsTrop Current Interpretive Data last revised 2020. Trop T hs delta -4 ng/L [facility] Trop T hs interp Insignificant [facility] Blood 08/21/2024 6:12 PM CDT 08/21/2024 6:12 PM CDT us Laura CAREY LAB BLOOD ORDERABLES Final Re sult [id number] [place] [address] * XR Chest 1 Vw Portable (08/21/2024 4:42 PM CDT) Anatomical Region Laterality Modality Body, Chest N/A Computed Radiogr aphy 08/21/2024 10:5 9 PM CDT Impressions 08/21/2024 10:59 PM CDT Comparison is made to prior examination 03/03/2024. Basilar predominant coarse interstitial opacities appear slightly more pronounced than on prior examination 03/03/2024 but are similar to 02/03/2024 and may represent changes of fibrosis though a component of mild superimposed edema cannot be excluded. No focal consolidation. No pleural effusion or pneumothorax. Heart size is unchanged. Electronically signed by: Isrrael Alicea M.D. Narrative 08/21/2024 10:59 PM CDT EXAMINATION: XR CHEST 1 VIEW Procedure Note Isrrael Alicea MD - 08/21/2024 EXAMINATION: XR CHEST 1 VIEW IMPRESSION: Comparison is made to prior examination 03/03/2024. Basilar predominant coarse interstitial opacities appear slightly more pronounced than on prior examination 03/03/2024 but are similar to 02/03/2024 and may represent changes of fibrosis though a component of mild superimposed edema cannot be excluded. No focal consolidation. No pleural effusion or pneumothorax. Heart size is unchanged. Electronically signed by: Isrrael Alicea M.D. us Aaron Grimaldo MD IMG XR PROCEDURES Final Re sult * (ABNORMAL) Troponin T high-sensitivity 2-hour (08/21/2024 4:13 PM CDT) Trop T hs 23(H) <=22 ng/L Comment: Interpretive Data For further hscTnT resources including the diagnostic algorithm and an aid in interpretation, copy and paste this link: https://nrl.testcatalog.org/show/hsTrop Current Interpretive Data last revised 2020. Trop T hs delta -3 ng/L [facility] Trop T hs interp Insignificant [facility] Blood 08/21/2024 4:13 PM CDT 08/21/2024 4:13 PM CDT us Laura CAREY LAB BLOOD ORDERABLES Final Re sult [address] Department [place] [address] * Urinalysis reflex to microscopic and culture Urine (08/21/2024 4:00 PM CDT) Color, ur Yellow Yellow Clarity, ur Clear Clear [facility] Specific gravity, ur 1.008 1.003 - 1.030 [facility] pH, urine 5.5 [facility] Comment: Interpretive Data U rine pH is affected by diet, medications, systemic acid-base disturbances, and renal tubular function. pH may affect urinary stone formation. For example, urine pH below 6.0 may help reduce the tendency for calcium phosphate stones and pH greater than 6.0 may reduce the tendency for uric acid stone formation. Source: [facility] Current Interpretive Data was last revised on 2017 Protein, ur ql Negative Negative [facility] Glucose, ur ql Negative Negative [facility] Ketones, ur Negative Negative [facility] Bilirubin, ur Negative Negative [facility] Blood, ur Negative Negative [facility] Urobilinogen, ur <2.0 <2.0 mg/dL [facility] Nitrite, ur Negative Negative [facility] Leukocyte esterase, ur Negative Negative [facility] UA reflex comment Reflex conditions for microscopic UA and culture not met. [facility] Urine 08/21/2024 4:00 PM CDT 08/21/2024 4:12 PM CDT Aaron Grimaldo MD LAB MICROBIOLOGY - GENERAL ORDERABLES Final Result Performing Organization Address [facility] Co de Phone Number [address] [place] [address] * (ABNORMAL) Troponin T high-sensitivity series (baseline, 2hr, 4hr, 6hr) (08/21/2024 1:41 PM CDT) Trop T hs 26(H) <=22 ng/L Comment: Interpretive Data For further hscTnT resources including the diagnostic algorithm and an aid in interpretation, copy and paste this link: https://nrl.testcatalog.org/show/hsTrop Current Interpretive Data last revised 2020. Blood 08/21/2024 1:41 PM CDT 08/21/2024 1:41 PM CDT Aaron Grimaldo MD LAB BLOOD ORDERABLES Final Result Performing Organization Address [facility] Co de Phone Number ALICIA [address] [employer] [place], [place] [id number] * (ABNORMAL) eGFR (08/21/2024 1:41 PM CDT) Pathologist [facility] eGFR 31(L) >=60 mL/min/1. 73 m2 Comment: Interpretive Data [...] interpretive data was last reviewed 2021. Blood 08/21/2024 1:41 PM CDT 08/21/2024 1:41 PM CDT us Laura CAREY LAB BLOOD ORDERABLES Final Re sult [address]ICIA [address] [place] [address] * (ABNORMAL) Differential, auto (08/21/2024 1:41 PM CDT) Pathologist [facility] Neutrophil abs 5.79 1.50 - 6.50 K/cumm Imm gran abs 0.08 0.00 - 0.10 K/cumm [facility] Lymphocyte abs 0.54(L) 0.80 - 3.30 K/cumm [facility] Monocyte abs 0.91(H) 0.20 - 0.80 K/cumm [facility] Eosinophil abs 0.23 0.00 - 0.50 K/cumm [facility] Basophil abs 0.04 0.00 - 0.10 K/cumm [facility] Neutrophil pct 76.3 % [facility] Comment: Interpretive Data Percent cell count reference ranges are not reported, since discordance with absolute values may lead to misinterpretation of CBC data. Current Interpretive Data was last revised on 2017. Imm gran pct 1.1 % C[facility]ER Comment: Interpretive Data Percent cell count reference ranges are not reported, since discordance with absolute values may lead to misinterpretation of CBC data. Current Interpretive Data was last revised on 2017. Lymphocyte pct 7.1 % [facility]ER Comment: Interpretive Data Percent cell count reference ranges are not reported, since discordance with absolute values may lead to misinterpretation of CBC data. Current Interpretive Data was last revised on 2017. Monocyte pct 12.0 % [facility] Comment: Interpretive Data Percent cell count reference ranges are not reported, since discordance with absolute values may lead to misinterpretation of CBC data. Current Interpretive Data was last revised on 2017. Eosinophil pct 3.0 % [facility]ER Comment: Interpretive Data Percent cell count reference ranges are not reported, since discordance with absolute values may lead to misinterpretation of CBC data. Current Interpretive Data was last revised on 2017. Basophil pct 0.5 % [facility]ER Comment: Interpretive Data Percent cell count reference ranges are not reported, since discordance with absolute values may lead to misinterpretation of CBC data. Current Interpretive Data was last revised on 2017. Blood 08/21/2024 1:41 PM CDT 08/21/2024 1:41 PM CDT us Laura CAREY LAB BLOOD ORDERABLES Final Re sult [facility] [address] [place] [address] * (ABNORMAL) CBC with auto differential (08/21/2024 1:41 PM CDT) WBC 7.59 3.80 - 9.90 K/cumm Hgb 10.2(L) 13.0 - 17.5 g/dL [facility] Hct 33.0(L) 38.9 - 50.3 % [facility] Plt 157 150 - 400 K/cumm [facility] MPV 10.7 9.1 - 12.3 fL [facility] RBC 4.14(L) 4.30 - 5.80 M/cumm [facility] MCV 79.7(L) 81.3 - 96.4 fL [facility] MCH 24.6(L) 27.1 - 33.3 pg [facility] MCHC 30.9(L) 32.3 - 35.7 g/dL [facility] RDW CV 17.8(H) 11.1 - 14.9 % [facility] RDW SD 51.4(H) 35.7 - 48.1 fL [facility] NRBC abs 0.00 0.00 - 0.01 K/cumm [facility] Blood Venous blood specimen / Unknown 08/21/2024 1:41 PM CDT 08/21/2024 1:41 PM CDT Aaron Grimaldo MD LAB BLOOD ORDERABLES Final Result Performing Organization Address City/[facility]/ZIP Co de Phone Number [facility] [address] [place], [place] [phone] * Lipase (08/21/2024 1:41 PM CDT) Pathologist [facility] Lipase 54 10 - 99 Units/L Blood Venous blood specimen / Unknown 08/21/2024 1:41 PM CDT 08/21/2024 1:41 PM CDT Aaron Grimaldo MD LAB BLOOD ORDERABLES Final Result Performing Organization Address City/[facility]/ZIP Co de Phone Number [facility] [address] [place] [address] * (ABNORMAL) Comprehensive metabolic panel (08/21/2024 1:41 PM CDT) Pathologist [facility] Sodium 135 135 - 145 mmol/L Potassium, pl 3.8 3.3 - 4.9 mmol/L [facility] Chloride 102 97 - 110 mmol/L [facility] CO2 21(L) 22 - 32 mmol/L [facility] Anion gap 12 2 - 15 mmol/L [facility] BUN 27(H) 6 - 25 mg/dL [facility] Creatinine 2.14(H) 0.80 - 1.30 mg/dL [facility] Glucose 112 70 - 199 mg/dL [facility] Comment: Interpretive Data Fasting glucose >/= 126 mg/dl is diagnostic for diabetes. Fasting is defined as no caloric intake for at least 8 hours. Fasting glucose between 100 mg/dl to 125 mg/dl is diagnostic of prediabetes. In a patient with classic symptoms of hyperglycemia or hyperglycemic crisis, a random glucose >/= 200 mg/dl is diagnostic for diabetes. In the absence of unequivocal hyperglycemia, results should be confirmed by repeat testing. The classification and Diagnosis of Diabetes Diabetes Care 2021; 46: S19-S40. Current interpretive data was last revised 2022. Calcium 9.0 8.5 - 10.3 mg/dL [facility] Bilirubin, total 0.3 0.1 - 1.2 mg/dL [facility] Protein, pl 6.4(L) 6.5 - 8.5 g/dL [facility] Albumin 3.4(L) 3.5 - 5.0 g/dL [facility] Alk phos 217(H) 40 - 130 Units/L [facility] ALT 35 7 - 55 Units/L [facility] AST 49 10 - 50 Units/L [facility] Blood 08/21/2024 1:41 PM CDT 08/21/2024 1:41 PM CDT us Aaron Grimaldo MD LAB BLOOD ORDERABLES Final Result [facility] [address] [place] [address] * ECG 12 lead (08/21/2024 12:58 PM CDT) 08/21/2024 12:5 8 PM CDT Narrative [facility] - 08/21/2024 7:10 PM CDT Vent Rate: 103 bpm RR Interval: 581 msec NC Interval: 139 msec QRS Duration: 130 msec QT Interval: 337 msec QTC Interval: 396 msec P-R-T Agency: 15 - 31 - 16 degrees IMPRESSION: SINUS TACHYCARDIA INDETERMINATE AXIS RIGHT BUNDLE BRANCH BLOCK [120+ ms QRS DURATION, UPRIGHT V1, 40+ ms S IN I/aVL/V4/V5/V6] ABNORMAL ECG NO CHANGE FROM PREVIOUS TRACING NOTED Electronically Signed By: Duglas Lares MD Aaron Grimaldo MD ECG ORDERABLES Final Resu lt Performing Organization Address City/[facility]/ZIP Co de Phone Number [facility] * CT Chest Abdomen Pelvis WO Contrast (01/21/2023 11:07 AM CDT) Anatomical Region Laterality Modality Body N/A Computed Tomogra phy Arpit Han MD PhD IMG CT PROCEDURES Prudence l Result * (ABNORMAL) Hemoglobin A1c (06/12/2020 11:07 AM JET DYEING MACHINE TENDER) Hgb A1C 7.1(H) 4.0 - 5.6 % [address] Estimated Average Glucose 157 mg/dL [address] Comment: The ADA recommends reporting an estimated Average Glucose (eAG) with all Hemoglobin A1c results using the equation derived from a study of 507 normal and diabetic adults. Minority populations were underrepresented and children were not included. (Diabetes Care 31:2919-2745, 2008). The eAG is not equivalent to a fasting glucose. Blood specimen (specimen) 06/12/2020 11:07 AM JET DYEING MACHINE TENDER 06/12/2020 11:07 AM JET DYEING MACHINE TENDER Radha Vail MD LAB BLOOD ORDERABLES Final Res ult Performing Organization Address City/[facility]/ZIP Co de Phone Number [facility] [address] [place] [address] from Last 3 Months or Most Recently Relevant to Health Maintenance Insurance MEDICARE REPLACED BY [facility] MEDICARE [employer] MEDICARE SUPPLEMENT MEDICARE [facility] MEDICARE SUPPLEMENT Advance Directives For more information, please contact: [phone] * Full Code (Latest Code Status on [...] 12:19 PM 03/03/2018 4:40 PM Care Teams Plater Printed Circuit Board Panels Relationship Specialty Start Date End Date Dre Zavaleta DO [address] [facility] [address] [place] [address] PCP - General Internal Medicine 01/14/24 [place] [address] [facility] [address] [place] [address] Consulting Physician Pulmonary Disease 06/25/20 Arpit Han MD PhD [address] [place] [address] Radiation Oncologist Radiation Oncology 10/04/21 [place] [address] [address] Referring Physician Pulmonary Disease 10/04/21 Harvey Alex MD [address] [address] Referring Physician Hematology 02/01/22
--- OUTSIDE RECORDS SUMMARY | 2024-08-26 13:56 | XMS_ITS | Clinical Summary ---
Author Organization [facility] Address [address] [facility] [place] [address] Care Team Providers Care Collision Center Manager Name Role Phone Julius Encinas MD Primary Care Provider [phone] Valeriy Lawson MD Unavailable [phone] Source Comments [facility],non-owned Affiliates and Associated Physician Practices is amultiple site organization consisting of ambulatory clinics and hospital sitesin [place], [place], [place] and [place]. This disclosure is being madepursuant to the Care Everywhere program and may not contain all information available regarding this patient. Last updated 17.[facility] Allergies Active Allergy Reactions Criticality Noted Date [...] VITAMINS PO Take by mouth daily. 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
--- OUTSIDE RECORDS SUMMARY | 2024-08-26 13:56 | XMS_ITS | Encounter Summary ---
Author Organization [facility] Address [address] [place] [address] Care Team Providers Care Social Worker Assistant Name Role Phone Julius Encinas MD Primary Care Provider [phone] Valeriy Lawson MD Unavailable [phone] Encounter Details Date Type Department Care Team (Late st Contact Info) Description 05/04/2013 [facility] Outpatient Visit EXTERNAL NON-[facility] DEPT Valeriy Lawson MD [address] [place] [address] Social History Tobacco Use Types Packs/Day Years Used Date Smoking Tobacco: Former Cigarettes 0 09/20/1992 - 09/20/2000 Smokeless Tobacco: Never Comments:unk date and mon Alcohol Use Standard Drinks/Week Comments No 0 (1 standard drink = 0.6 oz pur e alcohol) Sex and Gender Information Value Date Recorded Sex Assigned at Not on file Legal Sex Male 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
--- OUTSIDE RECORDS SUMMARY | 2024-08-26 13:56 | XMS_ITS | Encounter Summary ---
Author Organization [facility] Address [address] [place] [address] Care Team Providers Care Paperboard Machine Operator Name Role Phone Julius Encinas MD Primary Care Provider [phone] Valeriy Lawson MD Unavailable [phone] Encounter Details Date Type Department Care Team (Late st Contact Info) Description 02/11/2014 Therapy Visit EXTERNAL NON-[facility] DEPT Valeriy Lawson MD [address] [place] [address] Social History Tobacco Use Types Packs/Day Years Used Date Smoking Tobacco: Former Cigarettes 0 09/20/1992 - 09/20/2000 Smokeless Tobacco: Never Comments:unk date and mon Alcohol Use Standard Drinks/Week Comments No 0 (1 standard drink = 0.6 oz pur e alcohol) Sex and Gender Information Value Date Recorded Sex Assigned at Not on file 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
--- OUTSIDE RECORDS SUMMARY | 2024-08-26 13:56 | XMS_ITS | Clinical Summary ---
Author Organization [facility] Address [address] [place] [address] Care Team Providers Care Rocket Motor Tester Name Role Phone Unavailable Primary Care Provider [...]
--- OUTSIDE RECORDS SUMMARY | 2024-08-26 13:56 | XMS_ITS | Encounter Summary ---
Author Organization [facility] Address [address] [place] [address] Care Team Providers Care Inspector Rubber Stamp Die Name Role Phone Julius Encinas MD Primary Care Provider [phone] Valeriy Lawson MD Unavailable [phone] Encounter Details Date Type Department Care Team (Late st Contact Info) Description 04/13/2014 Therapy Visit EXTERNAL NON-[facility] DEPT Unknown, Provider Social History Tobacco Use Types Packs/Day Years Used Date Smoking Tobacco: Former Cigarettes 0 09/20/1992 - 09/20/2000 Smokeless Tobacco: Never Comments:unk date and mon Alcohol Use Standard Drinks/Week Comments No 0 (1 standard drink = 0.6 oz pur e alcohol) Sex and Gender Information Value Date Recorded Sex Assigned at Not on file Legal Sex Male 4: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
--- OUTSIDE RECORDS SUMMARY | 2024-08-26 13:56 | XMS_ITS | Encounter Summary ---
Author Organization [facility] Health Address [address] [facility] [place] [address] Care Team Providers Care Route Sales Specialist Name Role Phone Julius Encinas MD Primary Care Provider [phone] Valeriy Lawson MD Unavailable [phone] Encounter Details Date Type Department Care Team (Late st Contact Info) Description 09/23/2013 [facility] Outpatient Visit EXTERNAL NON-[facility] DEPT Valeriy Lawson MD [address] [place] [address] Social History Tobacco Use Types Packs/Day Years Used Date Smoking Tobacco: Former Cigarettes 0 09/20/1992 - 09/20/2000 Smokeless Tobacco: Never Comments:unk date and mon Alcohol Use Standard Drinks/Week Comments No 0 (1 standard drink = 0.6 oz pur e alcohol) Sex and Gender Information Value Date Recorded Sex Assigned at Not on file Legal 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
--- OUTSIDE RECORDS SUMMARY | 2024-08-26 13:56 | XMS_ITS | Clinical Summary ---
Author Organization [facility] Address [address] [place] [address] Care Team Providers Care Loan Workout Officer Name Role Phone Dre Zavaleta DO Primary Care Provider [phone] Allergies Active Allergy Reactions Criticality Noted Date [...] 180 mg by mouth daily. Active hydroCHLOROthiaz jeriac 25 mg tablet Take 25 mg by mouth daily. Active docosahexaenoic acid/epa (FISH OIL ORAL) Take by mouth. Activ e FLUTICASONE FUROATE INHALATION Take by inhalation. Active etanercept 50 mg/mL (0.98 mL) Syringe Inject 50 mg by subcutaneous injection. Active predniSONE (DELTASONE) 10 mg tablet Take 1 tablet PO daily x 5 days, then take 0.5 tablet PO daily 1 Active [place]-3 Fatty Acids 1,000 mg Capsule Take 1,000 [...] H. Active fluticasone propionate (FLONASE) 50 mcg/spray [place], Suspension nasal inhaler Administer 2 Sprays in each nostril daily at bedtime. Active hyoscyamine sulfate 0.125 mg tablet Take 0.125 mg by mouth every 4 hours as needed for Spasm. Active leflunomide (ARAVA) 20 mg Tablet Take 20 mg by mouth daily. 5 Active Active Problems Problem Noted Date Diagnosed Date Lung nodule 09/20/2021 COPD (chronic obstructive pulmonary disease) 04/2015 Benign hypertension 03/07/2016 Splenomegaly 03/07/2016 Rheumatoid arthritis involving multiple sites Encounters Date Type Department Care Team Description 08/12/2024 Orders Only [facility] Oncology and Hematology [facility] [address] [place] [address] Harvey Alex MD 08/11/2024 10:00 AM CDT Office Visit [facility] Oncology and Hematology [facility] [address] [place] [address] Harvey Alex MD Malignant neoplasm of upper lobe of left lung (CMS/HCC) (Primary Dx) 08/11/2024 Orders Only [facility] Oncology and [facility] [address] [place] [address] Harvey Alex MD 06/09/2024 External Device Data STL ABSTRACTION Provider, [...] Smoking Tobacco: Former Cigarettes 2 40 1 775 - 1998 Tobacco Cessation:Counseling Given: Not Answered Alcohol Use Standard Drinks/Week Comments Yes 0 (1 standard drink = 0.6 oz pur e alcohol) Sex and Gender Information Value Date Recorded Sex Assigned at Not on file 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 Gender Identity Not on file Sexual Orientation Not on file Last Filed Vital Signs Vital Sign Reading Time Taken Comments Blood Pressure 112/64 08/11/2024 9:56 AM CDT Pulse 104 08/11/2024 9:56 AM CDT Temperature 35.9 C (96.6 F) 08/11/2024 9:56 AM CDT Respiratory Rate 14 08/11/2024 9:56 AM CDT Oxygen Saturation 91% 08/11/2024 9:56 AM CDT Inhaled Oxygen Concentration - - Weight 92.5 kg (204 lb) 08/11/2024 9:56 AM CDT Height 175.3 cm (5' 9 ) 12/20/2021 9:31 AM CDT Body Mass Index 30.13 12/20/2021 9:31 AM CDT Plan of Treatment Upcoming Encounters Date Type Department Care Team (Late st Contact Info) Description 02/14/2025 10:15 AM MASTER MOTORCYCLE TECHNICIAN Office Visit [facility] Oncology and Hematology - [place] [address] [facility] [address] [place] [address] Harvey Alex MD [address] [facility] [address] [place] [address] Health Maintenance Due Date Last [...] Flex Sig/CT Colonography Q 5 years Discontinued Procedures Procedure Name Priority Date/Time Associated Diagnosis Comments BASIC METABOLIC PANEL Routine 08/11/2024 3:55 PM CDT CBC WITH DIFFERENTIAL Routine 08/11/2024 3:49 PM CDT COMPREHENSIVE METABOLIC PANEL Routine 08/11/2024 10:25 AM CDT from Last 3 Months Results * BASIC METABOLIC PANEL (08/11/2024 3:55 PM CDT) Blood Harvey Alex MD CHEMISTRY ORDERABLES Final Resu lt * CBC WITH DIFFERENTIAL (08/11/2024 3:49 PM CDT) Blood Harvey Alex MD HEMATOLOGY ORDERABLES Final Res ult * COMPREHENSIVE METABOLIC PANEL (08/11/2024 10:25 AM CDT) Blood us Harvey Alex MD CHEMISTRY ORDERABLES Final Resu lt from Last 3 Months Insurance MEDICARE PART A AND B [facility] MEDICARE PART A AND B BS SUPP Care Teams Loan Workout Officer Relationship Specialty Start Date End Date Dre Zavaleta DO [address] [facility] [address] [place] [address] PCP - General Internal Medicine 08/11/24
--- OUTSIDE RECORDS SUMMARY | 2024-08-26 13:56 | XMS_ITS | Referral Summary ---
Author Organization [facility] Address [address] [place] [address] Care Team Providers Care Nutrition Specialist Name Role Phone Zia Mercedes MD Unavailable [phone] Arpit patton MD PhD Unavailable [phone] Zia Mercedes MD Unavailable [phone] Harvey Alex MD Unavailable [phone] Dre Zavaleta DO Primary Care Provider [phone] Encounters Date Type Department Care Team Description 08/21/2024 12:55 PM CDT - 08/21/2024 8:18 PM CDT Emergency [facility] Emergency Department [address] [place] [address] Aaron Grimaldo MD Dark stools (Primary Dx); Chronic diarrhea Discharge Disposition: Discharge to home or self care from Last 3 Months Allergies Active Allergy Reactions Criticality Noted Date [...] on chronic respiratory failure with hypoxi a ([facility]) 06/04/2020 Assessment & Plan [...] 06/04/2020 Assessment & Plan (06/04/2020 6:00 PM CUSTOMS ENTRY WRITER): Mild elevation of AST and ALT most likely due to acute infection. Will monitor while on remdesivir. Respiratory alkalosis 06/04/2020 Assessment & Plan (06/04/2020 6:01 PM CUSTOMS ENTRY WRITER): Due to hyperventilation from hypoxia on admission. Monitor respiratory function with supplemental oxygen. Chronic obstructive pulmonar y disease with acute exacerbation ([facility]) 06/04/2020 Assessment & Plan (08/09/2021 1:52 PM CDT): Patient on prednisone, symbicort, and albuterol prn at home. - continue home meds - Mucinex DM and Tessalon perles added for cough Assessment & Plan (08/09/2021 1:35 AM CDT): Continue breathing treatments Assessment & Plan (06/04/2020 6:02 PM CUSTOMS ENTRY WRITER): Mild COPD exacerbation due to COVID-19, breath sounds diminished with mild end expiratory wheezing and a cough productive of small amounts of yellow sputum. Continue steroids for COVID-19 along with home Symbicort and albuterol p.r.n. COVID-19 05/29/2020 Assessment & Plan (06/04/2020 6:04 PM CUSTOMS ENTRY WRITER): Shortness of breath worsened since initial diagnosis [...] 05/29/2020 Assessment & Plan (06/04/2020 5:59 PM CUSTOMS ENTRY WRITER): Unable to obtain CTA chest because of allergy to IV contrast, but symptoms are not suggestive of acute the and D-dimer is very slightly above the threshold for normal. Will treat with Lovenox at half therapeutic dose because of COVID-19. Rheumatoid arthritis involvi ng multiple sites with positive rheumatoid factor ([facility]) 05/29/2020 Assessment & Plan (08/09/2021 1:49 PM CDT): Holding Plaquenil and Celebrex. Continue prednisone daily. Assessment & Plan (08/09/2021 1:33 AM CDT): Holding Plaquenil. Continue prednisone daily. Assessment & Plan (06/04/2020 5:57 PM CUSTOMS ENTRY WRITER): Continue home RA regimen, will need to [...] ordered Assessment & Plan (06/04/2020 5:58 PM CUSTOMS ENTRY WRITER): Uses CPAP at home, but does not [...] on file Legal Sex Male 1:51 AM CUSTOMS ENTRY WRITER Gender Identity Not on file Sexual Orientation [...] 08/21/2024 12:51 PM CDT Plan of Treatment Not on file Goals Goal Patient Goal Type Associated Problems Recent Progress Patient-Stated? Author [facility] Estelita Erickson, RN Note: Pt would like to complete ADLs, ride motorcycle with minimal pain. Medical Devices Implanted Type Area Gallery Or Museum Curator Device Identifier Shelf Expiration Date Model / Serial / Lot Other-See Comments Other - see comments Bilatera l: Knee Description:R. Total knee- 2 020 L. Total Knee-2014 Procedures Procedure Name [...] CDT HEMOGLOBIN A1C Add-On 06/12/2020 11:07 AM CUSTOMS ENTRY WRITER from Last 3 Months or Most Recently Relevant to Health Maintenance Results * Troponin T high-sensitivity 4-hour (08/21/2024 6:12 PM CDT) Trop T hs 22 <=22 ng/L Comment: Interpretive Data For further hscTnT resources including the diagnostic algorithm and an aid in interpretation, copy and paste this link: https://nrl.testcatalog.org/show/hsTrop Current Interpretive Data last revised 2020. Trop T hs delta -4 ng/L ALICIA Trop T hs interp Insignificant ALICIA Blood 08/21/2024 6:12 PM CDT 08/21/2024 6:12 PM CDT us Laura CAREY LAB BLOOD ORDERABLES Final Re sult ALICIA [address] [place] [address] * XR Chest 1 Vw Portable (08/21/2024 [...] EXAMINATION: XR CHEST 1 VIEW Procedure Note Irsrael Alicea MD - 08/21/2024 EXAMINATION: XR CHEST [...] 2020. Trop T hs delta -3 ng/L ALICIA L[address] Trop T hs interp Insignificant ALICIA LANE Blood 08/21/2024 4:13 PM CDT 08/21/2024 4:13 PM CDT us Laura CAREY LAB BLOOD ORDERABLES Final Re sult [address] [place] [address] * Urinalysis reflex to microscopic and culture [...] tendency for uric acid stone formation. Source: [facility] [employer] Current Interpretive Data was last revised on [...] for microscopic UA and culture not met. CERNER CH Urine 08/21/2024 4:00 PM CDT 08/21/2024 4:12 PM CDT Aaron Grimaldo MD LAB MICROBIOLOGY - GENERAL ORDERABLES Final Result [facility] [address] [place] [address] * (ABNORMAL) Troponin T high-sensitivity series (baseline, [...] BLOOD ORDERABLES Final Result Performing Organization Address [facility]/ZIP Co de Phone Number [address] [facility] [address] [facility] [place], [place] [id number] * (ABNORMAL) eGFR (08/21/2024 1:41 PM CDT) [...] LAB BLOOD ORDERABLES Final Re sult [address] [place] [address] * (ABNORMAL) Differential, auto (08/21/2024 1:41 PM CDT) Pathologist [facility] Neutrophil abs 5.79 1.50 - 6.50 K/cumm Imm gran abs 0.08 0.00 - 0.10 K/cumm [facility] Lymphocyte abs 0.54(L) 0.80 - 3.30 K/cumm [facility] Monocyte abs 0.91(H) 0.20 - 0.80 K/cumm [facility] Eosinophil abs 0.23 0.00 - 0.50 K/cumm [facility] Basophil abs 0.04 0.00 - 0.10 K/cumm [facility] Neutrophil pct 76.3 % [facility] Comment: Interpretive Data Percent cell count reference ranges are not reported, since discordance with absolute values may lead to misinterpretation of CBC data. Current Interpretive Data was last revised on 2017. Imm gran pct 1.1 % [facility] Comment: Interpretive Data Percent cell count reference ranges are not reported, since discordance with absolute values may lead to misinterpretation of CBC data. Current Interpretive Data was last revised on 2017. Lymphocyte pct 7.1 % [facility] Comment: Interpretive Data Percent cell count reference ranges are not reported, since discordance with absolute values may lead to misinterpretation of CBC data. Current Interpretive Data was last revised on 2017. Monocyte pct 12.0 % [facility] Comment: Interpretive Data Percent cell count reference ranges are not reported, since discordance with absolute values may lead to misinterpretation of CBC data. Current Interpretive Data was last revised on 2017. Eosinophil pct 3.0 % [facility] Comment: Interpretive Data Percent cell count reference ranges are not reported, since discordance with absolute values may lead to misinterpretation of CBC data. Current Interpretive Data was last revised on 2017. Basophil pct 0.5 % [facility] Comment: Interpretive Data Percent cell count reference ranges are not reported, since discordance with absolute values may lead to misinterpretation of CBC data. Current Interpretive Data was last revised on 2017. Blood 08/21/2024 1:41 PM CDT 08/21/2024 1:41 PM CDT us Laura CAREY LAB BLOOD ORDERABLES Final Re sult AILCIA [address] [place] [address] * (ABNORMAL) CBC with auto differential (08/21/2024 1:41 PM CDT) WBC 7.59 3.80 - 9.90 K/cumm Hgb 10.2(L) 13.0 - 17.5 g/dL CERNER CH Hct 33.0(L) 38.9 - 50.3 % CERNER CH Plt 157 150 - 400 K/cumm CERNER [facility] MPV 10.7 9.1 - 12.3 fL CERNER [...] BLOOD ORDERABLES Final Result Performing Organization Address City/[facility] Co de Phone Number [address] [facility] [employer] [place], [place] [id number] * Lipase (08/21/2024 1:41 PM CDT) Pathologist [facility] Lipase 54 10 - 99 Units/L Blood Venous blood specimen / Unknown 08/21/2024 1:41 PM CDT 08/21/2024 1:41 PM CDT Aaron Grimaldo MD LAB BLOOD ORDERABLES Final Result Performing Organization Address City/[facility]/ZIP Co de Phone Number ALICIA [address] [place] [address] * (ABNORMAL) Comprehensive metabolic panel (08/21/2024 1:41 PM CDT) Sodium 135 135 - 145 mmol/L Potassium, pl 3.8 3.3 - 4.9 mmol/L CERNER CH Chloride 102 97 - 110 mmol/L CERNER CH CO2 21(L) 22 - 32 mmol/L CERNER CH Anion gap 12 2 - 15 mmol/L CERNER CH BUN 27(H) 6 - 25 mg/dL CERNER [...] Grimaldo MD LAB BLOOD ORDERABLES Final Result [address] [place] [address] * ECG 12 lead (08/21/2024 12:58 PM CDT) 08/21/2024 12:5 8 PM CDT Narrative [facility] - 08/21/2024 7:10 PM CDT Vent Rate: 103 bpm RR Interval: 581 msec [place] Interval: 139 msec QRS Duration: 130 msec QT Interval: 337 msec QTC Interval: 396 msec P-R-T [place]: 15 - 31 - 16 degrees IMPRESSION: SINUS TACHYCARDIA INDETERMINATE AXIS RIGHT BUNDLE BRANCH BLOCK [120+ ms QRS DURATION, UPRIGHT V1, 40+ ms S IN I/aVL/V4/V5/V6] ABNORMAL ECG NO CHANGE FROM PREVIOUS TRACING NOTED Electronically Signed By: Duglas Lares MD Aaron Grimaldo MD ECG ORDERABLES Final Resu lt [facility] [employer] * CT Chest Abdomen Pelvis WO Contrast (01/21/2023 11:07 AM CDT) Anatomical Region Laterality Modality Body N/A Computed Tomogra phy Arpit Han MD PhD IMG CT PROCEDURES Prudence l Result * (ABNORMAL) Hemoglobin A1c (06/12/2020 11:07 AM CUSTOMS ENTRY WRITER) Hgb A1C 7.1(H) 4.0 - 5.6 % [address] Estimated Average Glucose 157 mg/dL [address]IA [address] Comment: The ADA recommends reporting an estimated Average Glucose (eAG) with all Hemoglobin A1c results using the equation derived from a study of 507 normal and diabetic adults. Minority populations were underrepresented and children were not included. (Diabetes Care 31:5888-0060, 2008). The eAG is not equivalent to a fasting glucose. Blood specimen (specimen) 06/12/2020 11:07 AM CUSTOMS ENTRY WRITER 06/12/2020 11:07 AM CUSTOMS ENTRY WRITER Radha Vail MD LAB BLOOD ORDERABLES Final Res ult ALICIA [address] [place] [address] from Last 3 Months or Most Recently Relevant to Health Maintenance Insurance MEDICARE [facility] MEDICARE BLUE CROSS MEDICARE SUPPLEMENT MEDICARE [facility] MEDICARE SUPPLEMENT Advance Directives For more information, please contact: [phone] * Full Code (Latest Code Status on [...] 12:19 PM 03/03/2018 4:40 PM Care Teams Nutrition Specialist Relationship Specialty Start Date End Date Dre Zavaleta DO [address] [place], [place] [id number] PCP - General Internal Medicine 01/14/24 [place] [address] [facility] [address] [place] [address] Consulting Physician Pulmonary Disease 06/25/20 Arpit Han MD PhD [address] [place] [address] Radiation Oncologist Radiation Oncology 10/04/21 [place] [address] [facility] [address] [place] [address] Referring Physician Pulmonary Disease 10/04/21 Harvey Alex MD [address] [facility] [address] [place] [id number] Referring Physician Hematology 02/01/22
--- OUTSIDE RECORDS SUMMARY | 2024-08-26 13:56 | XMS_ITS ---
Author Organization [facility] Address [address] [place] [address] Care Team Providers Care Seo Engineer Name Role Phone Zia Mercedes MD Unavailable [phone] Arpit Han MD PhD Unavailable [phone] Zia Mercedes MD Unavailable [phone] Harvey Alex MD Unavailable [phone] Dre Zavaleta DO Primary Care Provider [phone] Active Problems Problem Noted Date Diagnosed Date [...] on chronic respiratory failure with hypoxi a ([facility]) 06/04/2020 Assessment & Plan (08/09/2021 1:50 [...] 06/04/2020 Assessment & Plan (06/04/2020 6:00 PM OTHER SPORTS COACH OR INSTRUCTOR): Mild elevation of AST and ALT most likely due to acute infection. Will monitor while on remdesivir. Respiratory alkalosis 06/04/2020 Assessment & Plan (06/04/2020 6:01 PM OTHER SPORTS COACH OR INSTRUCTOR): Due to hyperventilation from hypoxia on admission. Monitor respiratory function with supplemental oxygen. Chronic obstructive pulmonar y disease with acute exacerbation ([facility]) 06/04/2020 Assessment & Plan (08/09/2021 1:52 PM CDT): Patient on prednisone, symbicort, and albuterol prn at home. - continue home meds - Mucinex DM and Tessalon perles added for cough Assessment & Plan (08/09/2021 1:35 AM CDT): Continue breathing treatments Assessment & Plan (06/04/2020 6:02 PM OTHER SPORTS COACH OR INSTRUCTOR): Mild COPD exacerbation due to COVID-19, breath sounds diminished with mild end expiratory wheezing and a cough productive of small amounts of yellow sputum. Continue steroids for COVID-19 along with home Symbicort and albuterol p.r.n. COVID-19 05/29/2020 Assessment & Plan (06/04/2020 6:04 PM OTHER SPORTS COACH OR INSTRUCTOR): Shortness of breath worsened since initial diagnosis [...] 05/29/2020 Assessment & Plan (06/04/2020 5:59 PM OTHER SPORTS COACH OR INSTRUCTOR): Unable to obtain CTA chest because of allergy to IV contrast, but symptoms are not suggestive of acute the and D-dimer is very slightly above the threshold for normal. Will treat with Lovenox at half therapeutic dose because of COVID-19. Rheumatoid arthritis involvi ng multiple sites with positive rheumatoid factor ([facility]) 05/29/2020 Assessment & Plan (08/09/2021 1:49 PM CDT): Holding Plaquenil and Celebrex. Continue prednisone daily. Assessment & Plan (08/09/2021 1:33 AM CDT): Holding Plaquenil. Continue prednisone daily. Assessment & Plan (06/04/2020 5:57 PM OTHER SPORTS COACH OR INSTRUCTOR): Continue home RA regimen, will need to [...] ordered Assessment & Plan (06/04/2020 5:58 PM OTHER SPORTS COACH OR INSTRUCTOR): Uses CPAP at home, but does not [...]
--- OUTSIDE RECORDS SUMMARY | 2024-08-26 13:56 | XMS_ITS | Encounter Summary ---
Author Organization [facility] Health Address [address] [facility] [place] [address] Care Team Providers Care Biometrics Technician Name Role Phone Julius Encinas MD Primary Care Provider [phone] Valeriy Lawson MD Unavailable [phone] Encounter Details Date Type Department Care Team (Late st Contact Info) Description 02/10/2014 [facility] Outpatient Visit EXTERNAL NON-[facility] DEPT Valeriy Lawson MD [address] [place] [id number] Social History Tobacco Use Types Packs/Day Years Used Date Smoking Tobacco: Former Cigarettes 0 09/20/1992 - 09/20/2000 Smokeless Tobacco: Never Comments:unk date and mon Alcohol Use Standard Drinks/Week Comments No 0 (1 standard drink = 0.6 oz pur e alcohol) Sex and Gender Information Value Date Recorded Sex Assigned at Not on file 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
[2024-08-26 13:58] VITALS: BP 123/56; PULSE 20; RESP 20; TEMP 36.6; O2SAT 98
--- NOTE | 2024-08-26 14:16 | ED_ITS ---
HPI - URI/Sore Throat General Chief Complaint: Upper Respiratory Infection Stated Complaint: cough/wheezing Time Seen by Provider: 08/26/24 14:16 Source: patient, RN notes reviewed and old records reviewed Mode of arrival: ambulatory Limitations: no limitations History of Present Illness HPI Narrative: 79 year old male accompanied by presents to express care with complaints of increased coughing with expectoration of white thick mucous for one week duration. Patient reports history of COPD and does use nebulizer and inhalers at home and also is on oxygen therapy ar 1-2 liters per nasal cannula. Patient r eports that he has not been able to lye flat for this time and cough kept him awake most of last night. Patient has been taking Mucines and using his inhalers and nebs and oxygen, uses CPAP at night MD elicited complaint: cough and other (congestion, wheezing increased dyspnea) Pertinent past history: COPD Onset (ago): minute(s) Consistency: constant Severity: moderate Description of mucous: other (white thick mucous) Able to tolerate fluids by mouth: Yes Treatments prior to arrival: other (Mucinex, inhalers and nebulizer) Related Data Home Medications ?Medication ?Instructions ?Recorded ?Confirmed ?Last Taken ?Type hydrocodone 10 mg-acetaminophen 1 tablet PO Q6H PRN Pain 02/21/20 08/11/24 07/12/24 History 325 mg tablet tamsulosin 0.4 mg capsule 0.4 mg PO QHS 08/01/20 08/11/24 07/14/24 21:00 History 0.4 mg aspirin 81 mg tablet,delayed 81 mg PO DAILY 06/25/22 08/11/24 07/14/24 21:00 History release (Aspir-) 81 mg magnesium 250 mg tablet 400 mg PO DAILY 06/25/22 08/11/24 07/15/24 08:00 History 400 mg budesonide 160 mcg-glycopyr 9 2 inh inhalation BID 07/25/22 08/11/24 07/15/24 08:00 History mcg-formot 4.8 mcg/actuation HFA 1 inh inhaler (Breztri Aerosphere) albuterol sulfate 90 mcg/actuation 2 puff inhalation Q4-6H PRN 03/12/23 08/11/24 Unknown History aerosol inhaler Shortness Of Breath oxygen-air delivery systems 04/10/23 08/11/24 Unknown History hydroxychloroquine 200 mg tablet 200 mg PO DAILY 06/23/23 08/11/24 07/15/24 08:00 History 200 mg celecoxib 200 mg capsule 200 mg PO DAILY 10/27/23 08/11/24 07/15/24 08:00 History 200 mg prednisone 2.5 mg tablet 10 mg PO DAILY 01/29/24 08/11/24 07/15/24 09:00 History 10 mg leflunomide 20 mg tablet 20 mg PO DAILY 07/15/24 08/11/24 07/15/24 08:00 History 20 mg metformin 500 mg tablet 500 mg PO BID 07/15/24 08/11/24 07/15/24 08:00 History 500 Allergies Allergy/AdvReac Type Severity Reaction Status Date / Time Iodinated Contrast Media Allergy Severe Hives Verified 08/26/24 14:13 infliximab (From Remicade) AdvReac Intermediate Rash Verified 08/26/24 14:13 Review of Systems Review of Systems: CONSTITUTIONAL: Reports malaise, reports no chills, sweats, or fever. EYES: Denies visual changes, redness, or discharge. ENT: Reports rhinorrhea, congestion, no sinus pain, no otalgia and no sore throat. CARDIOVASCULAR: Denies chest pain, palpitations, or edema. RESPIRATORY: Reports productive cough, wheezing.?Reports increased dyspnea GASTROINTESTINAL: Denies abdominal pain, nausea, vomiting, intermittent diarrhea SKIN: Denies rash or itching. MUSCULOSKELETAL: Denies myalgia. NEUROLOGIC: Denies headache. All systems reviewed & are unremarkable except as noted in HPI and below PMFSH Past Medical History Medical History 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 BMI 35.0-35.9,adult Colon polyp Lung cancer Influenza A COVID-19 Shingles Kidney stones GERD (gastroesophageal reflux disease) History of rectal polyps Gastrointestinal ulcer Diverticulitis Diverticulosis Emphysema of lung Cataracts, bilateral Obesity Hypercholesterolemia Benign essential hypertension Benign prostatic hyperplasia with lower urinary tract symptoms Chronic low back pain Chronic obstructive pulmonary disease, unspecified Elevated LFTs Follicular lymphoma grade II, unspecified site Lung nodule Mixed hyperlipidemia Obstructive sleep apnea (adult) (pediatric) Rheumatoid arthritis involving multiple sites Splenomegaly Surgical History Surgical History Hx of cholecystectomy History of right knee joint replacement Hx of cataract surgery History of back surgery Family History Family History Mother Family history of osteoarthritis Family history of congestive heart failure, Onset Age: 90 Family history of malignant neoplasm of breast in first degree relative Sibling Carcinoma of colon, Onset Age: 66 Family history of lupus erythematosus, Onset Age: 21 Family history of primary malignant neoplasm of liver Father Acute myocardial infarction Hypertension, Onset Age: 68 Family history of cardiovascular disease, Onset Age: 68 Social History Social History Smoking packs per day: 2 Smoking cigarettes per day: 40.0 Years smoked: 40 Smoking pack-years: 80.00 Smoking status: Former smoker Tobacco type: cigarettes Second hand tobacco smoke exposure: No Smoking end date: 07/07/99 Alcohol intake: never Substance use: never Substance use type: does not use Do You Feel Safe in your Home?: Yes Lack of Transportation: YES Lack of Food: Never True Current Housing: I Have Housing Concerned About Future Housing: No Difficulty Paying Gas/Electric Bills: No Difficulty Paying for Meds: No Currently Unemployed: No Education: High School Diploma/GED Difficulty w/ Childcare or Family Care: No Living arrangements: with family Occupation/Education: retired 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 Gender identity (if verbalized by the patient): Male Sexual Orientation (if Verbalized by the Patient): Straight or Heterosexual Spiritual care concerns: No Agree to blood products: Yes Comments At time of signature, agree with nursing past medical, surgical, social and family history. There is no relevant family history pertinent to the presenting complaint Exam Narrative: GENERAL:Chronic ill appearing-, well-nourished, and in no acute distress. HEAD: Normocephalic EYES: PERRLA, conjunctivae clear ENT: Nares clear, turbinates edematous and erythematous, clear discharge. Mucous membranes moist. TM pearly hernandez with dull light reflex bilaterally; no tragal tenderness. Oropharynx erythematous without lesions. Tonsils not enlarged and without exudate, no drooling, no hoarseness, no trismus, uvula midline, post nasal drainage. NECK: Supple. No lymphadenopathy CHEST: scattered wheezes rhonchi right base on auscultation, breath sounds equal. + wheezing, +rhonchi,no rales, or stridor. No respiratory distress, speaks in full sentences.dyspnea with minimal exertion,orthopnea SAO2% on O2 therapy 2 L HEART: Regular rate and rhythm. No murmur heard. SKIN: Warm, dry, no rash. NEURO: Alert and oriented x3. PSYCH: Normal mood and affect Course Course Emergency Course: Patient is aware of diagnosis, understands and agrees to treatment plan.? Anticipatory guidance given.? Patient agrees to follow-up as directed and is a morrow of reasons to seek care at the emergency department. Portions of this record may have been created with voice recognition software Level of Care: Express Care Visit Vital Signs Vital signs: Vital Signs Temperature 36.6 C 08/26/24 13:58 Pulse Rate 20 L 08/26/24 13:58 Respiratory Rate 20 08/26/24 13:58 Blood Pressure 123/56 L 08/26/24 13:58 Pulse Oximetry 98 08/26/24 13:58 Oxygen Delivery Room Air 08/26/24 13:58 Temperature 36.6 C 08/26/24 13:58 Pulse Rate 20 L 08/26/24 13:58 Respiratory Rate 20 08/26/24 13:58 Blood Pressure 123/56 L 08/26/24 13:58 Pulse Oximetry 98 08/26/24 13:58 Oxygen Delivery Room Air 08/26/24 13:58 Reviewed MDM - URI/Sore Throat MDM Narrative Medical decision making narrative: Differential diagnosis considered: Titus virus, strep pharyngitis, allergic rhinitis, upper respiratory tract infection, sinusitis, rhinosinusitis, nasopharyngitis. viral pharyngitis, otitis media, otitis externa, pneumonia, bronchitis, viral cough syndrome, viral syndrome, and influenza.? Exam findings show no acute concerns or changes; patient is non-toxic appearing and is in no distress.? Patient is appropriate for outpatient treatment and follow-up. Differential Diagnosis Differential diagnosis: Likely upper respiratory infection, viral infection, bronchitis and other (exacerbation of COPD,pneumonia) Medical Records Attestation: I reviewed the patient's medical records. Lab Data Attestation: I reviewed the patient's lab results. Imaging Data Attestation: I personally reviewed and interpreted this imaging study as follows: My impression: subsegmental atelectasis in left lung midzone recommend follow up CT 3 month, right lower atelectasis versus pneumonia Radiologist's impression: [facility] [place] [facility] [place] [address] XRay Report Signed Patient: Dilan Weaver : 1945 MR#: [id number] Age: 79 Acct:[id number] Loc: [facility] ADM Date: 08/26/24Attending Dr: Ordering Physician: Maryse Cary APRN Date of Service: 08/26/24 Procedure(s): XR chest 2V Accession Number(s): [id number] cc: Dre Zavaleta DO; Maryse Cary FRUIT II FARMWORKER~ XR chest 2V Ordering provider: Maryse Cary NP History: 79 years Male with . orthopnea, cough . Comparison: None. FINDINGS: MEDIASTINUM: The cardiac silhouette is slightly enlarged. LUNGS: No effusions or pneumothorax. Subsegmental atelectasis in the left mid zone. Possibility of nodule in this area is not excluded. Follow-up advised. Prominent markings in the left and right lower lobe. OTHER: No free air under the diaphragm. Degenerative changes of the spine. IMPRESSION: Subsegmental atelectasis in the left midzone. Nodule in this area is not excluded. Follow-up in [address] is advised. Prominent markings in the left and right lower lobe which may indicate early atelectasis versus pneumonia. Reviewed, dictated and finalized at location A. Please be advised this is a medical document. It is intended for [id number] communication. It is written in medical language and may contain unfamiliar abbreviations or verbiage. Medical documents are intended to carry relevant information, facts as evident, and the clinical opinion of the practitioner at the time of the encounter. This report may have been done utilizing a voice recognition system. Attempts have been made to correct errors. However, there may be uncorrected grammatical, spelling, and recognition errors present. The file time of this note does not necessarily represent the time of service. Dictated By: Wilmar Marcum MD 08/26/24 145 Signed By: <Electronically signed by Wilmar Marcum MD in OV> Critical Care Time Critical Care Time Critical Care Time: No Discharge Plan Discharge Clinical Impression: Orthopnea Pneumonia of lower lobe of lung Qualifiers: Pneumonia type: due to unspecified organism Laterality: right Qualified Code(s): J18.9 - Pneumonia, unspecified organism Patient Disposition: Home Condition: Stable Instructions: Antibiotic Form, Pneumonia (ED) Additional Instructions: Increase fluids especially juices and water Ctwe-jat-appiqbk cough and cold medicine of your choice for your symptoms continue Mucinex Use oxygen as needed per nasal cannula Continue your inhaler/nebulizer as directed Steroids as directed--take with food heat to the face 20-30 minutes 4-6 times a day for pain Salt water gargles, throat lozenges or throat sprays as desired Antibiotic as directed--finished the medication Call your physician's office and make follow-up appointment for Friday or Friday or if symptoms increase go directly to the emergency room If your symptoms persist, change or worsen significantly before you can contact your personal physician then please, without delay, go to the emergency department for further evaluation. Follow-up with PCP in 7-10 days or sooner if needed Patient Language: Thai Prescriptions: New prednisone 20 mg tablet 20 mg PO BID Qty: 10 0RF amoxicillin 875 mg tablet 875 mg PO Q12H Qty: 20 0RF No Action cholestyramine (with sugar) [Questran] 4 gram powder in packet 4 g PO BID Qty: 60 3RF Rx Instructions: administer w/meal; avoid other meds within 1hr before or 4-6hr after dose hydrocodone-acetaminophen 10-325 mg tablet 1 tablet PO Q6H PRN (Reason: Pain) tamsulosin 0.4 mg capsule 0.4 mg PO QHS aspirin [Aspir-81] 81 mg tablet,delayed release (DR/EC) 81 mg PO DAILY (DME) oxygen-air delivery systems Device See Rx Instructions .Route Patient Comments: pt states he is on 2 liters every night. Rx Instructions: As directed hyoscyamine sulfate 0.125 mg tablet,disintegrating 0.125 mg PO QID PRN (Reason: esophageal spasms) Qty: 45 0RF azelastine 137 mcg (0.1 %) aerosol,spray 137 mcg intranasal Q12H Qty: 30 5RF Rx Instructions: administer into each nostril hydroxychloroquine 200 mg tablet 200 mg PO DAILY fluticasone propionate 50 mcg/actuation spray,suspension See Rx Instructions .ROUTE .COMPLEX Qty: 48 3RF Dose Instruction: USE 2 SPRAYS IN EACH NOSTRIL DAILY NEEDED FOR CONGESTION Rx Instructions: USE 2 SPRAYS IN EACH NOSTRIL DAILY NEEDED FOR CONGESTION magnesium 250 mg tablet 400 mg PO DAILY Breztri Aerosphere 160-9-4.8 mcg/actuation Hfa Aerosol Inhaler 2 inh INHALATION BID albuterol sulfate 90 mcg/actuation HFA aerosol inhaler 2 puff INHALATION Q4-6H PRN (Reason: Shortness Of Breath) prednisone 2.5 mg tablet 10 mg PO DAILY Rx Instructions: TAKE 1 TABLET THREE TIMES DAILY celecoxib 200 mg capsule 200 mg PO DAILY leflunomide 20 mg tablet 20 mg PO DAILY metformin 500 mg tablet 500 mg PO BID Rx Instructions: TAKE 2 TABLETS EVERY DAY (DME) blood-glucose meter [Accu-Chek Guide Glucose Meter] Misc See Rx Instructions .Route Qty: 1 0RF Rx Instructions: test 2 times a day. (DME) lancets [Accu-Chek Multiclix Lancet] Misc See Rx Instructions .Route Qty: 200 1RF Rx Instructions: test 2 times a day (DME) Accu-Chek Guide test strips Strip See Rx Instructions .Route Qty: 100 2RF Rx Instructions: test 2 time a day trazodone 50 mg tablet See Rx Instructions .ROUTE .COMPLEX Qty: 270 1RF Dose Instruction: TAKE 3 TABLETS AT BEDTIME NEEDED FOR SLEEP Rx Instructions: TAKE 3 TABLETS AT BEDTIME NEEDED FOR SLEEP famotidine 20 mg tablet See Rx Instructions .ROUTE .COMPLEX Qty: 90 1RF Dose Instruction: TAKE 1 TABLET EVERY DAY Rx Instructions: TAKE 1 TABLET EVERY DAY diltiazem HCl 240 mg capsule,extended release 24hr 240 mg PO DAILY Qty: 90 1RF omeprazole 40 mg capsule,delayed release(DR/EC) 40 mg PO DAILY Qty: 90 1RF Rx Instructions: TAKE 1 CAPSULE EVERY DAY triamterene-hydrochlorothiazid 37.5-25 mg tablet 1 tablet PO QAM Qty: 90 1RF pravastatin 20 mg tablet 20 mg PO HS Qty: 90 1RF Rx Instructions: TAKE 1 TABLET AT BEDTIME mupirocin [Centany] 2 % ointment 1 applic topical BID Qty: 22 2RF Follow-up/Referrals: Dre Zavaleta DO [Primary Care Provider] - Time of Disposition: 15:23 Quality [place] Coma Scale Eyes: Open Verbal: Oriented and Alert Motor: Follows Commands [place] Coma Total Score: 15
[2024-08-26] MEDS: ONDANSETRON HCL ODT 4 MG TABLET SUBLINGUAL (14:18)
== END 2024-08-26 15:32 | disposition home or self-care (01) ==
PROVIDERS: Emergency Provider Registered Nurse; PCP Internal Medicine
DX: R06.01 Orthopnea (principal); J18.9 Pneumonia, unspecified organism; Z87.891 Personal history of nicotine dependence; I10 Essential (primary) hypertension; N40.1 Benign prostatic hyperplasia with lower urinary tract symptoms; J44.9 Chronic obstructive pulmonary disease, unspecified; E78.2 Mixed hyperlipidemia; M06.9 Rheumatoid arthritis, unspecified; Z99.81 Dependence on supplemental oxygen; K21.9 Gastro-esophageal reflux disease without esophagitis; E66.9 Obesity, unspecified; Z68.31 Body mass index [BMI] 31.0-31.9, adult; Z96.651 Presence of right artificial knee joint; Z85.118 Personal history of other malignant neoplasm of bronchus and lung; Z85.72 Personal history of non-Hodgkin lymphomas; Z79.82 Long term (current) use of aspirin
CPT/HCPCS: 71046; 99213; A9270; G0463

== ENCOUNTER 2024-09-13 12:31 | Outpatient (CLI) | payer MEDICARE, SELFPAY ==
--- OUTSIDE RECORDS SUMMARY | 2024-09-13 13:44 | XMS_ITS | Clinical Summary ---
Author Organization [facility] Address [address] [place] [address] Care Team Providers Care Carpenter Ship Name Role Phone Dre Zavaleta DO Primary Care Provider [phone] Allergies Active Allergy Reactions Criticality Noted Date [...] take 0.5 tablet PO daily 1 Active [place]-3 Fatty Acids 1,000 mg Capsule Take 1,000 [...] H. Active fluticasone propionate (FLONASE) 50 mcg/spray [place], Suspension nasal inhaler Administer 2 Sprays in [...] Department Care Team Description 08/12/2024 Orders Only [facility] Oncology and Hematology [facility] [address] [place] [address] Harvey Alex MD 08/11/2024 10:00 AM CDT Office Visit [facility] Oncology and Hematology [facility] [address] [place] [address] Harvey Alex MD Malignant neoplasm of upper lobe of left lung (CMS/HCC) (Primary Dx) 08/11/2024 Orders Only [facility] Oncology and [facility] [address] [place] [address] Harvey Alex MD from Last 3 Months Family History Medical History Relation Name Comments Cancer Brother 1 Heart Disease Father Cancer Mother Other Sister 1 lupus Cancer Sister 2 liver Relation Name Status Comments Brother 1 Brother 2 Alive Father Mother Sister 1 lupus Sister 2 liver Sister 3 Alive Social History Tobacco Use Types Packs/Day Years Used Date Smoking Tobacco: Former Cigarettes 2 40 1 [phone] Tobacco Cessation:Counseling Given: Not Answered Alcohol Use Standard Drinks/Week Comments Yes 0 (1 standard drink = 0.6 oz pur e alcohol) Sex and Gender Information Value Date Recorded Sex Assigned at Not on file Legal 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 [address] [place] [address] Harvey Alex MD [address] [facility] [address] [place] [address] Health Maintenance Due Date Last Done Comments DIABETES ANNUAL FOOT EXAM 1962 DIABETES MICROALBUMIN ANNUAL SCREEN 1962 LDL CHOLESTEROL ANNUAL 1962 DTAP/TDAP/TD VACCINES (1 - Tdap) 08/04/1963 PNEUMOCOCCAL VACCINE 50+ YEA RS (1 of 2 - PCV) 08/04/1963 ZOSTER VACCINE (1 of 2) 08/04/1963 RSV VACCINE (60+ or ) (1 - 1-dose 75+ series) 08/04/2019 INFLUENZA VACCINE (#1) 2023 4, 01/21/2011, 01/11/2010 DIABETES HBA1C Q 6 MONTHS 07/04/20242023, 06/17/2022, 11/13/2021, Additional history exists DIABETES ANNUAL RETINAL EXAM 08/05/202404/2023, 08/06/2023, 11/13/2018, [...] METABOLIC PANEL (08/11/2024 3:55 PM CDT) Blood us Harvey Alex MD CHEMISTRY ORDERABLES Final Resu lt * CBC WITH DIFFERENTIAL (08/11/2024 3:49 PM CDT) Blood us Harvey Alex MD HEMATOLOGY ORDERABLES Final Res ult * COMPREHENSIVE METABOLIC PANEL (08/11/2024 10:25 AM CDT) Blood us Harvey Alex MD CHEMISTRY ORDERABLES Final Resu lt from Last 3 Months Insurance MEDICARE PART A AND B [facility] MEDICARE PART A AND B BS SUPP Care Teams Carpenter Ship Relationship Specialty Start Date End Date Dre Zavaleta DO [address] [facility] [address] [facility] [address] [place] [address] PCP - General Internal Medicine 08/11/24
--- OUTSIDE RECORDS SUMMARY | 2024-09-13 13:44 | XMS_ITS ---
Author Organization [facility] Address [address] [place] [address] Care Team Providers Care Certified Nursing Assistant Name Role Phone Zia Mercedes MD Unavailable [phone] Arpit Han MD PhD Unavailable [phone] Zia Mercedes MD Unavailable [phone] Harvey Alex MD Unavailable [phone] Dre Zavaleta DO Primary Care Provider [phone] Active Problems Problem Noted Date Diagnosed Date [...] on chronic respiratory failure with hypoxi a ([facility] 06/04/2020 Assessment & Plan (08/09/2021 1:50 PM [...] 06/04/2020 Assessment & Plan (06/04/2020 6:00 PM PROGRAM THERAPIST): Mild elevation of AST and ALT most likely due to acute infection. Will monitor while on remdesivir. Respiratory alkalosis 06/04/2020 Assessment & Plan (06/04/2020 6:01 PM PROGRAM THERAPIST): Due to hyperventilation from hypoxia on admission. Monitor respiratory function with supplemental oxygen. Chronic obstructive pulmonar y disease with acute exacerbation ([facility]) 06/04/2020 Assessment & Plan (08/09/2021 1:52 PM CDT): Patient on prednisone, symbicort, and albuterol prn at home. - continue home meds - Mucinex DM and Tessalon perles added for cough Assessment & Plan (08/09/2021 1:35 AM CDT): Continue breathing treatments Assessment & Plan (06/04/2020 6:02 PM PROGRAM THERAPIST): Mild COPD exacerbation due to COVID-19, breath sounds diminished with mild end expiratory wheezing and a cough productive of small amounts of yellow sputum. Continue steroids for COVID-19 along with home Symbicort and albuterol p.r.n. COVID-19 05/29/2020 Assessment & Plan (06/04/2020 6:04 PM PROGRAM THERAPIST): Shortness of breath worsened since initial diagnosis [...] 05/29/2020 Assessment & Plan (06/04/2020 5:59 PM PROGRAM THERAPIST): Unable to obtain CTA chest because of allergy to IV contrast, but symptoms are not suggestive of acute the and D-dimer is very slightly above the threshold for normal. Will treat with Lovenox at half therapeutic dose because of COVID-19. Rheumatoid arthritis involvi ng multiple sites with positive rheumatoid factor ([facility]) 05/29/2020 Assessment & Plan (08/09/2021 1:49 PM CDT): Holding Plaquenil and Celebrex. Continue prednisone daily. Assessment & Plan (08/09/2021 1:33 AM CDT): Holding Plaquenil. Continue prednisone daily. Assessment & Plan (06/04/2020 5:57 PM PROGRAM THERAPIST): Continue home RA regimen, will need to [...] ordered Assessment & Plan (06/04/2020 5:58 PM PROGRAM THERAPIST): Uses CPAP at home, but does not [...]
--- OUTSIDE RECORDS SUMMARY | 2024-09-13 13:44 | XMS_ITS | Encounter Summary ---
Author Organization [facility] Address [address] [place] [address] Care Team Providers Care Geophysical Laboratory Supervisor Name Role Phone Julius Encinas MD Primary Care Provider [phone] Valeriy Lawson MD Unavailable [phone] Encounter Details Date Type Department Care Team (Late st Contact Info) Description 02/11/2014 Therapy Visit [facility] DEPT Valeriy Lawson MD [address] [place] [id number] Social History Tobacco Use Types Packs/Day Years Used Date Smoking Tobacco: Former Cigarettes 0 09/20/1992 - 09/20/2000 Smokeless Tobacco: Never Comments:unk date and mon Alcohol Use Standard Drinks/Week Comments No 0 (1 standard drink = 0.6 oz pur e alcohol) Sex and Gender Information Value Date Recorded Sex Assigned at Not on file Legal Sex 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
--- OUTSIDE RECORDS SUMMARY | 2024-09-13 13:44 | XMS_ITS | Clinical Summary ---
Author Organization [facility] Address [address] [place] [address] Care Team Providers Care Account Liaison Hospice Name Role Phone Unavailable Primary Care Provider [...]
--- OUTSIDE RECORDS SUMMARY | 2024-09-13 13:44 | XMS_ITS | Referral Summary ---
Author Organization [facility] Address [address] [place] [address] Care Team Providers Care Fur Feeder Name Role Phone Zia Mercedes MD Unavailable [phone] Arpit patton MD PhD Unavailable [phone] Zia Mercedes MD Unavailable [phone] Harvey Alex MD Unavailable [phone] Dre Zavaleta DO Primary Care Provider [phone] Encounters Date Type Department Care Team Description 08/21/2024 12:55 PM CDT - 08/21/2024 8:18 PM CDT Emergency [facility] Emergency Department [address] [place] [address] Aaron Grimaldo MD Dark stools (Primary Dx); [...] on chronic respiratory failure with hypoxi a ([facility]) 06/04/2020 Assessment & Plan (08/09/2021 1:50 [...] 06/04/2020 Assessment & Plan (06/04/2020 6:00 PM AUDIOVISUAL AIDS TECHNICIAN): Mild elevation of AST and ALT most likely due to acute infection. Will monitor while on remdesivir. Respiratory alkalosis 06/04/2020 Assessment & Plan (06/04/2020 6:01 PM AUDIOVISUAL AIDS TECHNICIAN): Due to hyperventilation from hypoxia on admission. Monitor respiratory function with supplemental oxygen. Chronic obstructive pulmonar y disease with acute exacerbation ([facility]) 06/04/2020 Assessment & Plan (08/09/2021 1:52 PM CDT): Patient on prednisone, symbicort, and albuterol prn at home. - continue home meds - Mucinex DM and Tessalon perles added for cough Assessment & Plan (08/09/2021 1:35 AM CDT): Continue breathing treatments Assessment & Plan (06/04/2020 6:02 PM AUDIOVISUAL AIDS TECHNICIAN): Mild COPD exacerbation due to COVID-19, breath sounds diminished with mild end expiratory wheezing and a cough productive of small amounts of yellow sputum. Continue steroids for COVID-19 along with home Symbicort and albuterol p.r.n. COVID-19 05/29/2020 Assessment & Plan (06/04/2020 6:04 PM AUDIOVISUAL AIDS TECHNICIAN): Shortness of breath worsened since initial diagnosis [...] 05/29/2020 Assessment & Plan (06/04/2020 5:59 PM AUDIOVISUAL AIDS TECHNICIAN): Unable to obtain CTA chest because of allergy to IV contrast, but symptoms are not suggestive of acute the and D-dimer is very slightly above the threshold for normal. Will treat with Lovenox at half therapeutic dose because of COVID-19. Rheumatoid arthritis involvi ng multiple sites with positive rheumatoid factor ([facility]) 05/29/2020 Assessment & Plan (08/09/2021 1:49 PM CDT): Holding Plaquenil and Celebrex. Continue prednisone daily. Assessment & Plan (08/09/2021 1:33 AM CDT): Holding Plaquenil. Continue prednisone daily. Assessment & Plan (06/04/2020 5:57 PM AUDIOVISUAL AIDS TECHNICIAN): Continue home RA regimen, will need to [...] ordered Assessment & Plan (06/04/2020 5:58 PM AUDIOVISUAL AIDS TECHNICIAN): Uses CPAP at home, but does not [...] on file Legal Sex Male 1:51 AM AUDIOVISUAL AIDS TECHNICIAN Gender Identity Not on file Sexual [...] 12:51 PM CDT Height 170.2 cm (5' 7) 08/21/2024 12:51 PM CDT Body Mass Index 31.95 08/21/2024 12:51 PM CDT Plan of Treatment Not on file Goals Goal Patient Goal Type Associated Problems Recent Progress Patient-Stated? Author [facility] Estelita Erickson, RN Note: Pt would like to complete ADLs, ride motorcycle with minimal pain. Medical Devices Implanted Type Area Patient Service Rep Device Identifier Shelf Expiration Date Model / [...] CDT HEMOGLOBIN A1C Add-On 06/12/2020 11:07 AM AUDIOVISUAL AIDS TECHNICIAN from Last 3 Months or Most Recently [...] LAB BLOOD ORDERABLES Final Re sult [address] Department [place] [address] * XR Chest 1 Vw [...] Electronically signed by: Isrrael Alicea M.D. us Araon Grimaldo MD IMG XR PROCEDURES Final Re [...] BLOOD ORDERABLES Final Re sult [address] Department of [employer] [place] [address] * Urinalysis reflex to microscopic and culture [...] tendency for uric acid stone formation. Source: [facility] [employer] Current Interpretive Data was last revised on [...] LAB MICROBIOLOGY - GENERAL ORDERABLES Final Result [facility] [address] Department [place] [address] * (ABNORMAL) Troponin T high-sensitivity series (baseline, [...] BLOOD ORDERABLES Final Result Performing Organization Address [facility]/ZIP Co de Phone Number [address] Department of Laboratories [place], [place] [id number] * (ABNORMAL) eGFR (08/21/2024 1:41 PM CDT) Pathologist [facility] eGFR 31(L) >=60 mL/min/1. 73 m2 Comment: [...] BLOOD ORDERABLES Final Re sult [address] Department [place] [address] * (ABNORMAL) Differential, auto (08/21/2024 1:41 PM CDT) Pathologist [facility] Neutrophil abs 5.79 1.50 - 6.50 K/cumm Imm gran abs 0.08 0.00 - 0.10 K/cumm [facility] Lymphocyte abs 0.54(L) 0.80 - 3.30 K/cumm [facility] Monocyte abs 0.91(H) 0.20 - 0.80 K/cumm [facility] Eosinophil abs 0.23 0.00 - 0.50 K/cumm [facility] Basophil abs 0.04 0.00 - 0.10 K/cumm [facility] Neutrophil pct 76.3 % [facility] Comment: Interpretive Data Percent cell count reference ranges are not reported, since discordance with absolute values may lead to misinterpretation of CBC data. Current Interpretive Data was last revised on 2017. Imm gran pct 1.1 % [facility] Comment: Interpretive Data Percent cell count reference ranges are not reported, since discordance with absolute values may lead to misinterpretation of CBC data. Current Interpretive Data was last revised on 2017. Lymphocyte pct 7.1 % [facility] Comment: Interpretive Data Percent cell count reference ranges are not reported, since discordance with absolute values may lead to misinterpretation of CBC data. Current Interpretive Data was last revised on 2017. Monocyte pct 12.0 % [facility] Comment: Interpretive Data Percent cell count reference ranges are not reported, since discordance with absolute values may lead to misinterpretation of CBC data. Current Interpretive Data was last revised on 2017. Eosinophil pct 3.0 % [facility] Comment: Interpretive Data Percent cell count reference ranges are not reported, since discordance with absolute values may lead to misinterpretation of CBC data. Current Interpretive Data was last revised on 2017. Basophil pct 0.5 % [facility] Comment: Interpretive Data Percent cell count reference ranges are not reported, since discordance with absolute values may lead to misinterpretation of CBC data. Current Interpretive Data was last revised on 2017. Blood 08/21/2024 1:41 PM CDT 08/21/2024 1:41 PM CDT us Laura CAREY LAB BLOOD ORDERABLES Final Re sult [address] Department [place] [address] * (ABNORMAL) CBC with auto differential (08/21/2024 [...] BLOOD ORDERABLES Final Result Performing Organization Address City/[facility] Co de Phone Number [address] [facility] Department [employer] [place], [place] [id number] * Lipase (08/21/2024 1:41 PM CDT) Pathologist [facility] Lipase 54 10 - 99 Units/L Blood Venous blood specimen / Unknown 08/21/2024 1:41 PM CDT 08/21/2024 1:41 PM CDT Aaron Grimaldo MD LAB BLOOD ORDERABLES Final Result Performing Organization Address City/[facility]/ZIP Co de Phone Number [address] Department of [employer] [place] [address] * (ABNORMAL) Comprehensive metabolic panel (08/21/2024 1:41 [...] LAB BLOOD ORDERABLES Final Result [address] Department [place] [address] * ECG 12 lead (08/21/2024 12:58 PM CDT) 08/21/2024 12:5 8 PM CDT Narrative [facility] - 08/21/2024 7:10 PM CDT Vent Rate: 103 bpm RR Interval: 581 msec LA Interval: 139 msec QRS Duration: 130 msec QT Interval: 337 msec QTC Interval: 396 msec P-R-T [place]: 15 - 31 - 16 degrees IMPRESSION: SINUS TACHYCARDIA INDETERMINATE AXIS RIGHT BUNDLE BRANCH BLOCK [120+ ms QRS DURATION, UPRIGHT V1, 40+ ms S IN I/aVL/V4/V5/V6] ABNORMAL ECG NO CHANGE FROM PREVIOUS TRACING NOTED Electronically Signed By: Duglas Lares MD Aaron Grimaldo MD ECG ORDERABLES Final Resu lt [facility] [employer] * CT Chest Abdomen Pelvis WO Contrast (01/21/2023 11:07 AM CDT) Anatomical Region Laterality Modality Body N/A Computed Tomogra phy Arpit Han MD PhD IMG CT PROCEDURES Prudence l Result * (ABNORMAL) Hemoglobin A1c (06/12/2020 11:07 AM AUDIOVISUAL AIDS TECHNICIAN) Hgb A1C 7.1(H) 4.0 - 5.6 % [address] Estimated Average Glucose 157 mg/dL [address] Comment: The ADA recommends reporting an estimated Average Glucose (eAG) with all Hemoglobin A1c results using the equation derived from a study of 507 normal and diabetic adults. Minority populations were underrepresented and children were not included. (Diabetes Care 31:7870-5677, 2008). The eAG is not equivalent to a fasting glucose. Blood specimen (specimen) 06/12/2020 11:07 AM AUDIOVISUAL AIDS TECHNICIAN 06/12/2020 11:07 AM AUDIOVISUAL AIDS TECHNICIAN Radha Vail MD LAB BLOOD ORDERABLES Final Res ult [address] [address] Department [place] [address] from Last 3 Months or Most Recently Relevant to Health Maintenance Insurance MEDICARE [facility] MEDICARE BLUE CROSS MEDICARE SUPPLEMENT MEDICARE [facility] MEDICARE SUPPLEMENT Advance Directives For more information, please contact: [phone] * Full Code (Latest Code Status on [...] 12:19 PM 03/03/2018 4:40 PM Care Teams Fur Feeder Relationship Specialty Start Date End Date Dre Zavaleta DO [address] [place], [place] [id number] PCP - General Internal Medicine 01/14/24 [place] [address] [facility] [address] [place] [address] Consulting Physician Pulmonary Disease 06/25/20 Arpit Han MD PhD [address] [place] [address] Radiation Oncologist Radiation Oncology 10/04/21 [place] [address] [facility] [address] [place] [address] Referring Physician Pulmonary Disease 10/04/21 Harvey Alex MD [address] [facility] [address] [place] [id number] Referring Physician Hematology 02/01/22
--- OUTSIDE RECORDS SUMMARY | 2024-09-13 13:44 | XMS_ITS | Clinical Summary ---
Author Organization [facility] Address [address] [place] [address] Care Team Providers Care Orthoptist Name Role Phone Zia Mercedes MD Unavailable [phone] Arpit patton MD PhD Unavailable [phone] Zia Mercedes MD Unavailable [phone] Harvey Alex MD Unavailable [phone] Dre Zavaleta DO Primary Care Provider [phone] Allergies Active Allergy Reactions Criticality Noted Date [...] on chronic respiratory failure with hypoxi a ([facility]) 06/04/2020 Assessment & Plan (08/09/2021 [...] 06/04/2020 Assessment & Plan (06/04/2020 6:00 PM WEDDING DAY COORDINATOR): Mild elevation of AST and ALT most likely due to acute infection. Will monitor while on remdesivir. Respiratory alkalosis 06/04/2020 Assessment & Plan (06/04/2020 6:01 PM WEDDING DAY COORDINATOR): Due to hyperventilation from hypoxia on admission. Monitor respiratory function with supplemental oxygen. Chronic obstructive pulmonar y disease with acute exacerbation ([facility]) 06/04/2020 Assessment & Plan (08/09/2021 1:52 PM CDT): Patient on prednisone, symbicort, and albuterol prn at home. - continue home meds - Mucinex DM and Tessalon perles added for cough Assessment & Plan (08/09/2021 1:35 AM CDT): Continue breathing treatments Assessment & Plan (06/04/2020 6:02 PM WEDDING DAY COORDINATOR): Mild COPD exacerbation due to COVID-19, breath sounds diminished with mild end expiratory wheezing and a cough productive of small amounts of yellow sputum. Continue steroids for COVID-19 along with home Symbicort and albuterol p.r.n. COVID-19 05/29/2020 Assessment & Plan (06/04/2020 6:04 PM WEDDING DAY COORDINATOR): Shortness of breath worsened since initial [...] 05/29/2020 Assessment & Plan (06/04/2020 5:59 PM WEDDING DAY COORDINATOR): Unable to obtain CTA chest because of allergy to IV contrast, but symptoms are not suggestive of acute the and D-dimer is very slightly above the threshold for normal. Will treat with Lovenox at half therapeutic dose because of COVID-19. Rheumatoid arthritis involvi ng multiple sites with positive rheumatoid factor ([facility]) 05/29/2020 Assessment & Plan (08/09/2021 1:49 PM CDT): Holding Plaquenil and Celebrex. Continue prednisone daily. Assessment & Plan (08/09/2021 1:33 AM CDT): Holding Plaquenil. Continue prednisone daily. Assessment & Plan (06/04/2020 5:57 PM WEDDING DAY COORDINATOR): Continue home RA regimen, will need [...] ordered Assessment & Plan (06/04/2020 5:58 PM WEDDING DAY COORDINATOR): Uses CPAP at home, but does [...] CDT - 08/21/2024 8:18 PM CDT Emergency [facility] Emergency Department [address] [place] [address] Aaron Grimaldo MD Dark stools (Primary Dx); [...] on file Legal Sex Male 1:51 AM WEDDING DAY COORDINATOR Gender Identity Not on file Sexual [...] minimal pain. Medical Devices Implanted Type Area Outside Sales Consultant Device Identifier Shelf Expiration Date Model / [...] CDT HEMOGLOBIN A1C Add-On 06/12/2020 11:07 AM WEDDING DAY COORDINATOR from Last 3 Months or Most [...] LAB BLOOD ORDERABLES Final Re sult [address] [place] [address] * XR Chest 1 Vw Portable (08/21/2024 [...] LAB BLOOD ORDERABLES Final Re sult [address] [address] [place] [address] * Urinalysis reflex to microscopic and culture [...] tendency for uric acid stone formation. Source: [facility] Current Interpretive Data was last revised on [...] for microscopic UA and culture not met. [facility] Urine 08/21/2024 4:00 PM CDT 08/21/2024 4:12 PM CDT Aaron Grimaldo MD LAB MICROBIOLOGY - GENERAL ORDERABLES Final Result Performing Organization Address [facility] Co de Phone Number [address] [place] [address] * (ABNORMAL) Troponin T high-sensitivity [...] BLOOD ORDERABLES Final Result Performing Organization Address [facility] Co de Phone Number [address]ICIA [address] [employer] [place], [place] [phone] * (ABNORMAL) eGFR (08/21/2024 1:41 PM CDT) Pathologist [facility] eGFR 31(L) >=60 mL/min/1. 73 m2 Comment: [...] LAB BLOOD ORDERABLES Final Re sult [address] [place] [address] * (ABNORMAL) Differential, auto (08/21/2024 1:41 PM CDT) Pathologist [facility] Neutrophil abs 5.79 1.50 - 6.50 K/cumm Imm gran abs 0.08 0.00 - 0.10 K/cumm [facility] Lymphocyte abs 0.54(L) 0.80 - 3.30 K/cumm [facility] Monocyte abs 0.91(H) 0.20 - 0.80 K/cumm [facility] Eosinophil abs 0.23 0.00 - 0.50 K/cumm [facility] Basophil abs 0.04 0.00 - 0.10 K/cumm [facility] Neutrophil pct 76.3 % [facility] Comment: Interpretive Data Percent cell count [...] CAREY LAB BLOOD ORDERABLES Final Re sult [facility] [address] [place] [address] * (ABNORMAL) CBC with auto differential (08/21/2024 1:41 PM CDT) WBC 7.59 3.80 - 9.90 K/cumm Hgb 10.2(L) 13.0 - 17.5 g/dL [facility] Hct 33.0(L) 38.9 - 50.3 % [facility] Plt 157 150 - 400 K/cumm [facility] MPV 10.7 9.1 - 12.3 fL [...] BLOOD ORDERABLES Final Result Performing Organization Address City/[facility]/ZIP Co de Phone Number [facility] [address] [employer] [place], [place] [phone] * Lipase (08/21/2024 1:41 PM CDT) Pathologist [facility] Lipase 54 10 - 99 Units/L Blood Venous blood specimen / Unknown 08/21/2024 1:41 PM CDT 08/21/2024 1:41 PM CDT Aaron Grimaldo MD LAB BLOOD ORDERABLES Final Result Performing Organization Address City/[facility]/ZIP Co de Phone Number [facility] [address] [place] [address] * (ABNORMAL) Comprehensive metabolic panel (08/21/2024 1:41 PM CDT) Pathologist [facility] Sodium 135 135 - 145 mmol/L Potassium, pl 3.8 3.3 - 4.9 mmol/L [facility] Chloride 102 97 - 110 mmol/L [facility] CO2 21(L) 22 - 32 mmol/L [facility] Anion gap 12 2 - 15 mmol/L [facility] BUN 27(H) 6 - 25 mg/dL [facility] [...] Grimaldo MD LAB BLOOD ORDERABLES Final Result [facility] [address] [place] [address] * ECG 12 lead (08/21/2024 12:58 PM CDT) 08/21/2024 12:5 [address] PM [address]arrative [facility] - 08/21/2024 7:10 PM CDT Vent Rate: 103 bpm RR Interval: 581 msec FL Interval: 139 msec QRS Duration: 130 msec QT Interval: 337 msec QTC Interval: 396 msec P-R-T [place]: 15 - 31 - 16 degrees IMPRESSION: SINUS TACHYCARDIA INDETERMINATE AXIS RIGHT BUNDLE BRANCH BLOCK [120+ ms QRS DURATION, UPRIGHT V1, 40+ ms S IN I/aVL/V4/V5/V6] ABNORMAL ECG NO CHANGE FROM PREVIOUS TRACING NOTED Electronically Signed By: Duglas Lares MD Aaron Grimaldo MD ECG ORDERABLES Final Resu lt Performing Organization Address City/[facility]/ZIP Co de Phone Number [facility] * CT Chest Abdomen Pelvis WO Contrast (01/21/2023 11:07 AM CDT) Anatomical Region Laterality Modality Body N/A Computed Tomogra phy Arpit Han MD PhD IMG CT PROCEDURES Prudence l Result * (ABNORMAL) Hemoglobin A1c (06/12/2020 11:07 AM WEDDING DAY COORDINATOR) Hgb A1C 7.1(H) 4.0 - 5.6 % [address] Estimated Average Glucose 157 mg/dL [address] Comment: The ADA recommends reporting an estimated Average Glucose (eAG) with all Hemoglobin A1c results using the equation derived from a study of 507 normal and diabetic adults. Minority populations were underrepresented and children were not included. (Diabetes Care 31:1879-0813, 2008). The eAG is not equivalent to a fasting glucose. Blood specimen (specimen) 06/12/2020 11:07 AM WEDDING DAY COORDINATOR 06/12/2020 11:07 AM WEDDING DAY COORDINATOR Radha Vail MD LAB BLOOD ORDERABLES Final Res ult Performing Organization Address City/[facility]/ZIP Co de Phone Number [facility] [address] [place] [address] from Last 3 Months or Most Recently Relevant to Health Maintenance Insurance MEDICARE [facility] MEDICARE BLUE CROSS MEDICARE SUPPLEMENT MEDICARE [facility] MEDICARE SUPPLEMENT Advance Directives For more information, please contact: [phone] * Full Code (Latest Code Status on [...] 12:19 PM 03/03/2018 4:40 PM Care Teams Orthoptist Relationship Specialty Start Date End Date Dre Zavaleta DO [address] [facility] [address] [place] [address] PCP - General Internal Medicine 01/14/24 [place] [address] [facility] [address] [place] [address] Consulting Physician Pulmonary Disease 06/25/20 Arpit Han MD PhD [address] [place] [address] Radiation Oncologist Radiation Oncology 10/04/21 [place] [address] [address] Referring Physician Pulmonary Disease 10/04/21 Harvey Alex MD [address] [address] Referring Physician Hematology 02/01/22
--- OUTSIDE RECORDS SUMMARY | 2024-09-13 13:44 | XMS_ITS | Encounter Summary ---
Author Organization [facility] Health Address [address] [facility] [place] [address] Care Team Providers Care Acquisition Marketing Manager Name Role Phone Julius Encinas MD Primary Care Provider Valeriy Lawson MD Unavailable [phone] Encounter Details Date Type Department Care Team (Late st Contact Info) Description 09/23/2013 [facility] Outpatient Visit EXTERNAL NON-[facility] DEPT Valeriy Lawson MD [address] [place] [address] Social History Tobacco Use Types Packs/Day Years Used Date Smoking Tobacco: Former Cigarettes 0 09/20/1992 - 09/20/2000 Smokeless Tobacco: Never Comments:unk date and mon Alcohol Use Standard Drinks/Week Comments No 0 (1 standard drink = 0.6 oz pur e alcohol) Sex and Gender Information Value Date Recorded Sex Assigned at Not on file Legal Sex Male 4:21 AM DRUPAL PHP DEVELOPER Gender Identity Not on file Sexual Orientation Not on file documented as of this encounter Plan of Treatment Not on file documented as of this encounter Visit Diagnoses Not on filedocumented in this encounter Care Teams Acquisition Marketing Manager Relationship Specialty Start Date End Date Julius Encinas MD [address] [place] [address] PCP - General 06/10/08 Valeriy Lawson MD [address] [place] [address] 11/13/09 documented as of this encounter
--- OUTSIDE RECORDS SUMMARY | 2024-09-13 13:44 | XMS_ITS | Encounter Summary ---
Author Organization [facility] Address [address] [facility] [place] [address] Care Team Providers Care Engraver Letter Name Role Phone Julius Encinas MD Primary Care Provider [phone] Valeriy Lawson MD Unavailable [phone] Encounter Details Date Type Department Care Team (Late st Contact Info) Description 04/13/2014 Therapy Visit EXTERNAL NON-[facility] DEPT Unknown, Provider Social History Tobacco Use Types Packs/Day Years Used Date Smoking Tobacco: Former Cigarettes 0 09/20/1992 - 09/20/2000 Smokeless Tobacco: Never Comments:unk date and mon Alcohol Use Standard Drinks/Week Comments No 0 (1 standard drink = 0.6 oz pur e alcohol) Sex and Gender Information Value Date Recorded Sex Assigned at Not on file Legal Sex Male 4:21 AM ATTENDANT H[employer]OR [employer] Gender Identity Not on file Sexual Orientation Not on file documented as of this encounter Plan of Treatment Not on file documented as of this encounter Visit Diagnoses Not on filedocumented in this encounter Care Teams Engraver Letter Relationship Specialty Start Date End Date Julius Encinas MD [address] [employer] [address] PCP - General 06/10/08 Valeriy Lawson MD [address] [place] [address] 11/13/09 documented as of this encounter
--- OUTSIDE RECORDS SUMMARY | 2024-09-13 13:44 | XMS_ITS | Encounter Summary ---
Author Organization [facility] Address [address] [facility] [place] [address] Care Team Providers Care Campus Director Name Role Phone Julius Encinas MD Primary Care Provider [phone] Valeriy Lawson MD Unavailable [phone] Encounter Details Date Type Department Care Team (Late st Contact Info) Description 08/24/2010 [facility] Outpatient Visit [facility] - Family Medicine [id number] [place] [phone] Valeriy Lawson MD [address] [place], [place] [id number] Social History Tobacco Use Types Packs/Day Years Used Date Smoking Tobacco: Former Cigarettes 0 09/20/1992 - 09/20/2000 Smokeless Tobacco: Never Comments:unk date and mon Alcohol Use Standard Drinks/Week Comments No 0 (1 standard drink = 0.6 oz pur e alcohol) Sex and Gender Information Value Date Recorded Sex Assigned at Not on file Legal Sex Male 4:21 AM GASTROENTEROLOGY TECHNICIAN Gender Identity Not on file Sexual Orientation Not on file documented as of this encounter Plan of Treatment Not on file documented as of this encounter Visit Diagnoses Not on filedocumented in this encounter Care Teams Campus Director Relationship Specialty Start Date End Date Julius Encinas MD [address] [place] [address] PCP - General 06/10/08 Valeriy Lawson MD [address] [place] [address] 11/13/09 documented as of this encounter
--- OUTSIDE RECORDS SUMMARY | 2024-09-13 13:44 | XMS_ITS | Clinical Summary ---
Author Organization [facility] Address [address] [place] [address] Care Team Providers Care Rock Climbing Instructor Name Role Phone Julius Encinas MD Primary Care Provider [phone] Valeriy Lawson MD Unavailable [phone] Source Comments [facility],non-owned Affiliates and Associated Physician Practices is amultiple site organization consisting of ambulatory clinics and hospital sitesin [place], [place]. This disclosure is being madepursuant to the Care Everywhere program and may not contain all information available regarding this patient. Last updated 17.[facility] Allergies Active Allergy Reactions Criticality [...] VITAMINS PO Take by mouth daily. Active Badin-3 Fatty Acids (FISH OIL) 1200 MG CAPS [...] (08/19/2011): Start date 1999 Rheumatoid arthritis of [facility] sites with negative rheumatoid factor 05/25/2008 Overview [...] on file Legal Sex Male 4:21 AM YEAST DISTILLER Gender Identity Not on file Sexual Orientation [...] 1:04 PM CDT Height 176.5 cm (5' 9.5) 08/15/2017 8:47 AM CDT Body Mass Index [...] Name:MEGPAULODILAN Subscriber ID:Not on file (Home) Address: [address] [place] [address] Payer ID:Not on file Group ID:Not on file Type:Self Pay Address: [place], [place] MEDICARE ANTHEM MEDICARE ANTHEM Care Teams Rock Climbing Instructor Relationship Specialty Start Date End Date Julius Encinas MD [address] [facility] [place] [address] PCP - General 06/10/08 Valeriy Lawson MD [address] [place] [address] 11/13/09
--- OUTSIDE RECORDS SUMMARY | 2024-09-13 13:44 | XMS_ITS | Encounter Summary ---
Author Organization [facility] Health Address [address] [facility] [place] [address] Care Team Providers Care Mammography Supervisor Name Role Phone Julius Encinas MD Primary Care Provider [phone] Valeriy Lawson MD Unavailable [phone] Encounter Details Date Type Department Care Team (Late st Contact Info) Description 02/10/2014 [facility] Outpatient Visit EXTERNAL NON-[facility] DEPT Valeriy Lawson MD [address] [place] [address] Social History Tobacco Use Types Packs/Day Years Used Date Smoking Tobacco: Former Cigarettes 0 09/20/1992 - 09/20/2000 Smokeless Tobacco: Never Comments:unk date and mon Alcohol Use Standard Drinks/Week Comments No 0 (1 standard drink = 0.6 oz pur e alcohol) Sex and Gender Information Value Date Recorded Sex Assigned at Not on file 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
--- OUTSIDE RECORDS SUMMARY | 2024-09-13 13:44 | XMS_ITS | Encounter Summary ---
Author Organization [facility] Health Address [address] [facility] [place] [address] Care Team Providers Care Helper/Driver Name Role Phone Julius Encinas MD Primary Care Provider [phone] Valeriy Lawson MD Unavailable [phone] Encounter Details Date Type Department Care Team (Late st Contact Info) Description 05/04/2013 [facility] Outpatient Visit EXTERNAL NON-[facility] DEPT Valeriy Lawson MD [address] [place] [address] Social History Tobacco Use Types Packs/Day Years Used Date Smoking Tobacco: Former Cigarettes 0 09/20/1992 - 09/20/2000 Smokeless Tobacco: Never Comments:unk date and mon Alcohol Use Standard Drinks/Week Comments No 0 (1 standard drink = 0.6 oz pur e alcohol) Sex and Gender Information Value Date Recorded Sex Assigned at Not on file 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
--- NOTE | 2024-09-13 15:39 | WPDSIXMINUTE ---
Six Minute Walk Procedure Procedure Performed Pulmonary Stress Test (6 min walk) Six Minute Walk Six Minute Walk: This is a 6 minute walk test. The test was performed and interpreted in accordance with the 2014 ERS/ATS task force guidelines. Of note, testing was performed on 2 L nasal cannula with a walker. Testing was terminated after 3.5 minutes due to dizziness and shortness of breath. Findings: The patient's resting 2 L nasal cannula oxygen saturation measured by pulse oximetry was 95%, the heart rate was 103 bpm, and the modified Claudia dyspnea score was 1. Patient ambulated for 61 meters and oxygen saturation remained 90 to 95%. At the end of the study the heart rate was 120 bpm and the modified Claudia dyspnea score was 4. The patient did not have desaturations at rest or with ambulation on 2 L nasal cannula. There are no prior studies for comparison.
== END 2024-09-13 12:32 | disposition home or self-care (01) ==
LOC: ANHPFT 12:32
PROVIDERS: PCP Internal Medicine; Visit Provider Internal Medicine Pulmonary Disease
DX: J43.9 Emphysema, unspecified (principal); J96.10 Chronic respiratory failure, unspecified whether with hypoxia or hypercapnia
CPT/HCPCS: 94618

== ENCOUNTER 2024-09-20 12:30 | Outpatient (RCR) | payer MEDICARE, SELFPAY | END 2024-09-27 12:00 | disposition home or self-care (01) | LOC: ANHCPREHAB 12:30 | PROVIDERS: PCP Internal Medicine; Visit Provider Internal Medicine Pulmonary Disease | DX: J96.10 Chronic respiratory failure, unspecified whether with hypoxia or hypercapnia (principal); J43.9 Emphysema, unspecified | CPT/HCPCS: 94625; G0239 ==

== ENCOUNTER 2024-10-13 02:01 | Day surgery (SDC) | payer MEDICARE, SELFPAY ==
[2024-10-04 14:10] VITALS: BMI 31.1
--- OUTSIDE RECORDS SUMMARY | 2024-10-13 02:05 | XMS_ITS | Encounter Summary ---
Author Organization [facility] Health Address [address] [facility] [place] [address] Care Team Providers Care Indoor Plant Technician Name Role Phone Julius Encinas MD Primary Care Provider [phone] Valeriy Lawson MD Unavailable [phone] Encounter Details Date Type Department Care Team (Late st Contact Info) Description 02/10/2014 [facility] Outpatient Visit EXTERNAL NON-[facility] DEPT Valeriy Lawson MD [address] [place] [address] Social History Tobacco Use Types Packs/Day Years Used Date Smoking Tobacco: Former Cigarettes 0 09/20/1992 - 09/20/2000 Smokeless Tobacco: Never Comments:unk date and mon Alcohol Use Standard Drinks/Week Comments No 0 (1 standard drink = 0.6 oz pur e alcohol) Sex and Gender Information Value Date Recorded Sex Assigned at Not on file 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
--- OUTSIDE RECORDS SUMMARY | 2024-10-13 02:05 | XMS_ITS | Clinical Summary ---
Author Organization [facility] Address [address] [place] [address] Care Team Providers Care Booking Agent Name Role Phone Zia Mercedes MD Unavailable [phone] Arpit patton MD PhD Unavailable [phone] Zia Mercedes MD Unavailable [phone] Harvey Alex MD Unavailable [phone] Dre Zavaleta DO Primary Care Provider [phone] Allergies Active Allergy Reactions Criticality Noted Date [...] chronic respiratory failure with hypoxi a ([facility]) 06/04/2020 Assessment & Plan (08/09/2021 [...] 06/04/2020 Assessment & Plan (06/04/2020 6:00 PM OUTSIDE SALES PROFESSIONAL): Mild elevation of AST and ALT most likely due to acute infection. Will monitor while on remdesivir. Respiratory alkalosis 06/04/2020 Assessment & Plan (06/04/2020 6:01 PM OUTSIDE SALES PROFESSIONAL): Due to hyperventilation from hypoxia on admission. Monitor respiratory function with supplemental oxygen. Chronic obstructive pulmonar y disease with acute exacerbation ([facility]) 06/04/2020 Assessment & Plan (08/09/2021 1:52 PM CDT): Patient on prednisone, symbicort, and albuterol prn at home. - continue home meds - Mucinex DM and Tessalon perles added for cough Assessment & Plan (08/09/2021 1:35 AM CDT): Continue breathing treatments Assessment & Plan (06/04/2020 6:02 PM OUTSIDE SALES PROFESSIONAL): Mild COPD exacerbation due to COVID-19, breath sounds diminished with mild end expiratory wheezing and a cough productive of small amounts of yellow sputum. Continue steroids for COVID-19 along with home Symbicort and albuterol p.r.n. COVID-19 05/29/2020 Assessment & Plan (06/04/2020 6:04 PM OUTSIDE SALES PROFESSIONAL): Shortness of breath worsened since initial diagnosis [...] 05/29/2020 Assessment & Plan (06/04/2020 5:59 PM OUTSIDE SALES PROFESSIONAL): Unable to obtain CTA chest because of allergy to IV contrast, but symptoms are not suggestive of acute the and D-dimer is very slightly above the threshold for normal. Will treat with Lovenox at half therapeutic dose because of COVID-19. Rheumatoid arthritis involvi ng multiple sites with positive rheumatoid factor ([facility]) 05/29/2020 Assessment & Plan (08/09/2021 1:49 PM CDT): Holding Plaquenil and Celebrex. Continue prednisone daily. Assessment & Plan (08/09/2021 1:33 AM CDT): Holding Plaquenil. Continue prednisone daily. Assessment & Plan (06/04/2020 5:57 PM OUTSIDE SALES PROFESSIONAL): Continue home RA regimen, will need to [...] ordered Assessment & Plan (06/04/2020 5:58 PM OUTSIDE SALES PROFESSIONAL): Uses CPAP at home, but does not [...] CDT - 08/21/2024 8:18 PM CDT Emergency [facility] Emergency Department [address] [place] [address] Aaron Grimaldo MD Dark stools (Primary Dx); [...] on file Legal Sex Male 1:51 AM OUTSIDE SALES PROFESSIONAL Gender Identity Not on file Sexual Orientation [...] Risk Assessment 08/29/2022 08/29/2021 Influenza Vaccine (#1) 2024 12/07/2019 eGFR 08/21/2025 08/21/2024, 11/2 10/2023, 01/14/2024, Additional history exists Abdominal Aortic Aneurysm (A AA) Screen Completed 01/21/2023, 07/15/2022, 06/27/2017 Goals Goal Patient Goal Type Associated Problems Recent Progress Patient-Stated? Author [facility] Estelita Erickson, RN Note: Pt would like to complete ADLs, ride motorcycle with minimal pain. Medical Devices Implanted Type Area Scallop Shucker Device Identifier Shelf Expiration Date Model / [...] CDT HEMOGLOBIN A1C Add-On 06/12/2020 11:07 AM OUTSIDE SALES PROFESSIONAL from Last 3 Months or Most Recently [...] LAB BLOOD ORDERABLES Final Re sult ALICIA ARIANA [address] Department [place] [address] * XR Chest 1 Vw Portable [...] 4:13 PM CDT 08/21/2024 4:13 PM CDT Laura CAREY LAB BLOOD ORDERABLES Final Re sult ALICIA [address] Department [place] [address] * Urinalysis reflex to microscopic and culture [...] tendency for uric acid stone formation. Source: [facility] Current Interpretive Data was last revised on [...] for microscopic UA and culture not met. [facility] Urine 08/21/2024 4:00 PM CDT 08/21/2024 4:12 PM CDT Aaron Grimaldo MD LAB MICROBIOLOGY - GENERAL ORDERABLES Final Result Performing Organization Address [facility] Co de Phone Number ALICIA ARIANA [address] [place] [address] * (ABNORMAL) Troponin T high-sensitivity [...] BLOOD ORDERABLES Final Result Performing Organization Address [facility] Co de Phone Number ALICIA ARIANA [address] [employer] [place], [place] [id number] * (ABNORMAL) eGFR (08/21/2024 1:41 PM CDT) Pathologist [facility] eGFR 31(L) >=60 mL/min/1. 73 m2 Comment: [...] LAB BLOOD ORDERABLES Final Re sult ALICIA [address] Department [place] [address] * (ABNORMAL) Differential, auto (08/21/2024 1:41 PM CDT) Pathologist [facility] Neutrophil abs 5.79 1.50 - 6.50 K/cumm Imm gran abs 0.08 0.00 - 0.10 K/cumm [facility] Lymphocyte abs 0.54(L) 0.80 - 3.30 K/cumm [facility] Monocyte abs 0.91(H) 0.20 - 0.80 K/cumm [facility] Eosinophil abs 0.23 0.00 - 0.50 K/cumm [facility] Basophil abs 0.04 0.00 - 0.10 K/cumm [facility] Neutrophil pct 76.3 % [facility] Comment: Interpretive Data Percent cell count reference [...] CAREY LAB BLOOD ORDERABLES Final Re sult [facility] [address] Department [place] [address] * (ABNORMAL) CBC with auto differential (08/21/2024 1:41 PM CDT) WBC 7.59 3.80 - 9.90 K/cumm Hgb 10.2(L) 13.0 - 17.5 g/dL [facility] Hct 33.0(L) 38.9 - 50.3 % [facility] Plt 157 150 - 400 K/cumm [facility] MPV 10.7 9.1 - 12.3 fL CERNER [...] Final Result Performing Organization Address [facility] Co de Phone Number [facility] [address] [place] [address] * Lipase (08/21/2024 1:41 PM CDT) Pathologist [facility] Lipase 54 10 - 99 Units/L Blood Venous blood specimen / Unknown 08/21/2024 1:41 PM CDT 08/21/2024 1:41 PM CDT Aaron Grimaldo MD LAB BLOOD ORDERABLES Final Result Performing Organization Address [facility] Co de Phone Number [facility] [address] [place] [address] * (ABNORMAL) Comprehensive metabolic panel (08/21/2024 1:41 PM CDT) Pathologist [facility] Sodium 135 135 - 145 mmol/L Potassium, pl 3.8 3.3 - 4.9 mmol/L [facility] Chloride 102 97 - 110 mmol/L CERNER CO2 21(L) 22 - 32 mmol/L [facility] CH Anion gap 12 2 - 15 mmol/L [facility] BUN 27(H) 6 - 25 mg/dL CERNER [...] Grimaldo MD LAB BLOOD ORDERABLES Final Result [facility] [address] Department [place] [address] * ECG 12 lead (08/21/2024 12:58 PM CDT) 08/21/2024 12:5 8 PM CDT Narrative [facility] - 08/21/2024 7:10 PM CDT Vent Rate: 103 bpm RR Interval: 581 msec WA Interval: 139 msec QRS Duration: 130 msec QT Interval: 337 msec QTC Interval: 396 msec P-R-T Chambers: 15 - 31 - 16 degrees IMPRESSION: SINUS TACHYCARDIA INDETERMINATE AXIS RIGHT BUNDLE BRANCH BLOCK [120+ ms QRS DURATION, UPRIGHT V1, 40+ ms S IN I/aVL/V4/V5/V6] ABNORMAL ECG NO CHANGE FROM PREVIOUS TRACING NOTED Electronically Signed By: Duglas Lares MD Aaron Grimaldo MD ECG ORDERABLES Final Resu lt Performing Organization Address [facility] Co de Phone Number [facility] * CT Chest Abdomen Pelvis WO Contrast (01/21/2023 11:07 AM CDT) Anatomical Region Laterality Modality Body N/A Computed Tomogra phy Arpit Han MD PhD IMG CT PROCEDURES Prudence l Result * (ABNORMAL) Hemoglobin A1c (06/12/2020 11:07 AM OUTSIDE SALES PROFESSIONAL) Hgb A1C 7.1(H) 4.0 - 5.6 % [facility] Estimated Average Glucose 157 mg/dL [facility] Comment: The ADA recommends reporting an estimated Average Glucose (eAG) with all Hemoglobin A1c results using the equation derived from a study of 507 normal and diabetic adults. Minority populations were underrepresented and children were not included. (Diabetes Care 31:2404-7747, 2008). The eAG is not equivalent to a fasting glucose. Blood specimen (specimen) 06/12/2020 11:07 AM OUTSIDE SALES PROFESSIONAL 06/12/2020 11:07 AM OUTSIDE SALES PROFESSIONAL Result [facility] Radha Vail MD LAB BLOOD ORDERABLES Final Res ult Performing Organization Address [facility] Co de Phone Number [facility] [address] Department [place] [address] from Last 3 Months or Most Recently Relevant to Health Maintenance Insurance MEDICARE [facility] MEDICARE [employer]UE [employer]OSS MEDICARE SUPPLEMENT MEDICARE [facility] MEDICARE SUPPLEMENT Advance Directives For more information, please contact: [phone] * Full Code (Latest Code Status on [...] 12:19 PM 03/03/2018 4:40 PM Care Teams Booking Agent Relationship Specialty Start Date End Date Dre Zavaleta DO [address] [facility] [address] [facility] [address] [place] [address] PCP - General Internal Medicine 01/14/24 [place] [address] [facility] [address] [place] [address] Consulting Physician Pulmonary Disease 06/25/20 Arpit Han MD PhD [address] [place] [address] Radiation Oncologist Radiation Oncology 10/04/21 [place] [address] [address] Referring Physician Pulmonary Disease 10/04/21 Harvey Alex MD [address] [address] Referring Physician Hematology 02/01/22
--- OUTSIDE RECORDS SUMMARY | 2024-10-13 02:05 | XMS_ITS | Clinical Summary ---
Author Organization [facility] Address [address] [place] [address] Care Team Providers Care Caustic Cresylate Shift Superintendent Name Role Phone Unavailable Primary Care Provider [...]
--- OUTSIDE RECORDS SUMMARY | 2024-10-13 02:05 | XMS_ITS | Encounter Summary ---
Author Organization [facility] Address [address] [place] [address] Care Team Providers Care Mold Yarn Supervisor Name Role Phone Julius Encinas MD Primary Care Provider [phone] Valeriy Lawson MD Unavailable [phone] Encounter Details Date Type Department Care Team (Late st Contact Info) Description 02/11/2014 Therapy Visit EXTERNAL NON-[facility] DEPT Valeriy Lawson MD [address] [place] [address] Social History Tobacco Use Types Packs/Day Years Used Date Smoking Tobacco: Former Cigarettes 0 09/20/1992 - 09/20/2000 Smokeless Tobacco: Never Comments:unk date and mon Alcohol Use Standard Drinks/Week Comments No 0 (1 standard drink = 0.6 oz pur e alcohol) Sex and Gender Information Value Date Recorded Sex Assigned at Not on file 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
--- OUTSIDE RECORDS SUMMARY | 2024-10-13 02:05 | XMS_ITS | Encounter Summary ---
Author Organization [facility] Address [address] [facility] [place] [address] Care Team Providers Care Photo Printer Name Role Phone Julius Encinas MD Primary Care Provider [phone] Valeriy Lawson MD Unavailable [phone] Encounter Details Date Type Department Care Team (Late st Contact Info) Description 04/13/2014 Therapy Visit EXTERNAL NON-[facility] DEPT Unknown, Provider Social History Tobacco Use Types Packs/Day Years Used Date Smoking Tobacco: Former Cigarettes 0 09/20/1992 - 09/20/2000 Smokeless Tobacco: Never Comments:unk date and mon Alcohol Use Standard Drinks/Week Comments No 0 (1 standard drink = 0.6 oz pur e alcohol) Sex and Gender Information Value Date Recorded Sex Assigned at Not on file 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
--- OUTSIDE RECORDS SUMMARY | 2024-10-13 02:05 | XMS_ITS | Encounter Summary ---
Author Organization [facility] Health Address [address] [facility] [place] [address] Care Team Providers Care Handling Tech Name Role Phone Julius Encinas MD Primary Care Provider [phone] Valeriy Lawson MD Unavailable [phone] Encounter Details Date Type Department Care Team (Late st Contact Info) Description 05/04/2013 [facility] Outpatient Visit EXTERNAL NON-[facility] DEPT Valeriy Lawson MD [address] [place] [address] Social History Tobacco Use Types Packs/Day Years Used Date Smoking Tobacco: Former Cigarettes 0 09/20/1992 - 09/20/2000 Smokeless Tobacco: Never Comments:unk date and mon Alcohol Use Standard Drinks/Week Comments No 0 (1 standard drink = 0.6 oz pur e alcohol) Sex and Gender Information Value Date Recorded Sex Assigned at Not on file 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
--- OUTSIDE RECORDS SUMMARY | 2024-10-13 02:05 | XMS_ITS | Encounter Summary ---
Author Organization [facility] Health Address [address] [facility] [place] [address] Care Team Providers Care Cardiology Consultant Name Role Phone Julius Encinas MD Primary Care Provider [phone] Valeriy Lawson MD Unavailable Encounter Details Date Type Department Care Team (Late st Contact Info) Description 09/23/2013 [facility] Outpatient Visit EXTERNAL NON-[facility] DEPT Valeriy Lawson MD [address] [place] [id number] Social History Tobacco Use Types Packs/Day Years Used Date Smoking Tobacco: Former Cigarettes 0 09/20/1992 - 09/20/2000 Smokeless Tobacco: Never Comments:unk date and mon Alcohol Use Standard Drinks/Week Comments No 0 (1 standard drink = 0.6 oz pur e alcohol) Sex and Gender Information Value Date Recorded Sex Assigned at Not on file 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
--- OUTSIDE RECORDS SUMMARY | 2024-10-13 02:05 | XMS_ITS ---
Author Organization [facility] Address [address] [place] [address] Care Team Providers Care Pugger Helper Name Role Phone Zia Mercedes MD Unavailable [phone] Arpit Han MD PhD Unavailable [phone] Zia Mercedes MD Unavailable [phone] Harvey Alex MD Unavailable [phone] Dre Zavaleta DO Primary Care Provider [phone] Active Problems Problem Noted Date Diagnosed Date [...] on chronic respiratory failure with hypoxi a ([facility]) 06/04/2020 Assessment & Plan (08/09/2021 [...] 06/04/2020 Assessment & Plan (06/04/2020 6:00 PM ICU REGISTERED NURSE): Mild elevation of AST and ALT most likely due to acute infection. Will monitor while on remdesivir. Respiratory alkalosis 06/04/2020 Assessment & Plan (06/04/2020 6:01 PM ICU REGISTERED NURSE): Due to hyperventilation from hypoxia on admission. Monitor respiratory function with supplemental oxygen. Chronic obstructive pulmonar y disease with acute exacerbation ([facility]) 06/04/2020 Assessment & Plan (08/09/2021 1:52 PM CDT): Patient on prednisone, symbicort, and albuterol prn at home. - continue home meds - Mucinex DM and Tessalon perles added for cough Assessment & Plan (08/09/2021 1:35 AM CDT): Continue breathing treatments Assessment & Plan (06/04/2020 6:02 PM ICU REGISTERED NURSE): Mild COPD exacerbation due to COVID-19, breath sounds diminished with mild end expiratory wheezing and a cough productive of small amounts of yellow sputum. Continue steroids for COVID-19 along with home Symbicort and albuterol p.r.n. COVID-19 05/29/2020 Assessment & Plan (06/04/2020 6:04 PM ICU REGISTERED NURSE): Shortness of breath worsened since initial diagnosis [...] 05/29/2020 Assessment & Plan (06/04/2020 5:59 PM ICU REGISTERED NURSE): Unable to obtain CTA chest because of allergy to IV contrast, but symptoms are not suggestive of acute the and D-dimer is very slightly above the threshold for normal. Will treat with Lovenox at half therapeutic dose because of COVID-19. Rheumatoid arthritis involvi ng multiple sites with positive rheumatoid factor ([facility]) 05/29/2020 Assessment & Plan (08/09/2021 1:49 PM CDT): Holding Plaquenil and Celebrex. Continue prednisone daily. Assessment & Plan (08/09/2021 1:33 AM CDT): Holding Plaquenil. Continue prednisone daily. Assessment & Plan (06/04/2020 5:57 PM ICU REGISTERED NURSE): Continue home RA regimen, will need to [...] ordered Assessment & Plan (06/04/2020 5:58 PM ICU REGISTERED NURSE): Uses CPAP at home, but does not [...]
--- OUTSIDE RECORDS SUMMARY | 2024-10-13 02:05 | XMS_ITS | Referral Summary ---
Author Organization [facility] Address [address] [place] [address] Care Team Providers Care Application Chemist Name Role Phone Zia Mercedes MD Unavailable [phone] Arpit patton MD PhD Unavailable [phone] Zia Mercedes MD Unavailable [phone] Harvey Alex MD Unavailable [phone] Dre Zavaleta DO Primary Care Provider [phone] Encounters Date Type Department Care Team Description 08/21/2024 12:55 PM CDT - 08/21/2024 8:18 PM CDT Emergency [facility] Emergency Department [address] [place] [address] Aaron Grimaldo MD Dark stools (Primary Dx); [...] on chronic respiratory failure with hypoxi a ([facility]) 06/04/2020 Assessment & Plan (08/09/2021 [...] 06/04/2020 Assessment & Plan (06/04/2020 6:00 PM INSTRUMENT ADJUSTER): Mild elevation of AST and ALT most likely due to acute infection. Will monitor while on remdesivir. Respiratory alkalosis 06/04/2020 Assessment & Plan (06/04/2020 6:01 PM INSTRUMENT ADJUSTER): Due to hyperventilation from hypoxia on admission. Monitor respiratory function with supplemental oxygen. Chronic obstructive pulmonar y disease with acute exacerbation ([facility]) 06/04/2020 Assessment & Plan (08/09/2021 1:52 PM CDT): Patient on prednisone, symbicort, and albuterol prn at home. - continue home meds - Mucinex DM and Tessalon perles added for cough Assessment & Plan (08/09/2021 1:35 AM CDT): Continue breathing treatments Assessment & Plan (06/04/2020 6:02 PM INSTRUMENT ADJUSTER): Mild COPD exacerbation due to COVID-19, breath sounds diminished with mild end expiratory wheezing and a cough productive of small amounts of yellow sputum. Continue steroids for COVID-19 along with home Symbicort and albuterol p.r.n. COVID-19 05/29/2020 Assessment & Plan (06/04/2020 6:04 PM INSTRUMENT ADJUSTER): Shortness of breath worsened since initial diagnosis [...] 05/29/2020 Assessment & Plan (06/04/2020 5:59 PM INSTRUMENT ADJUSTER): Unable to obtain CTA chest because of allergy to IV contrast, but symptoms are not suggestive of acute the and D-dimer is very slightly above the threshold for normal. Will treat with Lovenox at half therapeutic dose because of COVID-19. Rheumatoid arthritis involvi ng multiple sites with positive rheumatoid factor ([facility]) 05/29/2020 Assessment & Plan (08/09/2021 1:49 PM CDT): Holding Plaquenil and Celebrex. Continue prednisone daily. Assessment & Plan (08/09/2021 1:33 AM CDT): Holding Plaquenil. Continue prednisone daily. Assessment & Plan (06/04/2020 5:57 PM INSTRUMENT ADJUSTER): Continue home RA regimen, will need to [...] ordered Assessment & Plan (06/04/2020 5:58 PM INSTRUMENT ADJUSTER): Uses CPAP at home, but does not [...] on file Legal Sex Male 1:51 AM INSTRUMENT ADJUSTER Gender Identity Not on file Sexual Orientation [...] minimal pain. Medical Devices Implanted Type Area Property Maintenance Technician Device Identifier Shelf Expiration Date Model [...] CDT HEMOGLOBIN A1C Add-On 06/12/2020 11:07 AM INSTRUMENT ADJUSTER from Last 3 Months or Most Recently [...] LAB BLOOD ORDERABLES Final Re sult [address] [address] Department [place] [address] * XR Chest 1 Vw Portable [...] BLOOD ORDERABLES Final Re sult [address] [place] [address] * Urinalysis reflex to microscopic and culture [...] tendency for uric acid stone formation. Source: [facility] [employer] Current Interpretive Data was last revised on [...] LAB MICROBIOLOGY - GENERAL ORDERABLES Final Result [facility] [address] [place] [address] * (ABNORMAL) Troponin T high-sensitivity series (baseline, [...] BLOOD ORDERABLES Final Result Performing Organization Address [facility]/ZIP Co de Phone Number [address] Department of Laboratories [place], [place] [id number] * (ABNORMAL) eGFR (08/21/2024 1:41 PM CDT) Pathologist [facility] eGFR 31(L) >=60 mL/min/1. 73 m2 [...] BLOOD ORDERABLES Final Re sult [address] [place] [address] * (ABNORMAL) Differential, auto (08/21/2024 1:41 PM CDT) Pathologist [facility] Neutrophil abs 5.79 1.50 - 6.50 K/cumm Imm gran abs 0.08 0.00 - 0.10 K/cumm [facility] Lymphocyte abs 0.54(L) 0.80 - 3.30 K/cumm [facility] Monocyte abs 0.91(H) 0.20 - 0.80 K/cumm [facility] Eosinophil abs 0.23 0.00 - 0.50 K/cumm [facility] Basophil abs 0.04 0.00 - 0.10 K/cumm [facility] Neutrophil pct 76.3 % [facility] Comment: Interpretive Data Percent cell count reference ranges are not reported, since discordance with absolute values may lead to misinterpretation of CBC data. Current Interpretive Data was last revised on 2017. Imm gran pct 1.1 % [facility] Comment: Interpretive Data Percent cell count reference ranges are not reported, since discordance with absolute values may lead to misinterpretation of CBC data. Current Interpretive Data was last revised on 2017. Lymphocyte pct 7.1 % [facility] Comment: Interpretive Data Percent cell count reference ranges are not reported, since discordance with absolute values may lead to misinterpretation of CBC data. Current Interpretive Data was last revised on 2017. Monocyte pct 12.0 % [facility] Comment: Interpretive Data Percent cell count reference ranges are not reported, since discordance with absolute values may lead to misinterpretation of CBC data. Current Interpretive Data was last revised on 2017. Eosinophil pct 3.0 % [facility] Comment: Interpretive Data Percent cell count reference ranges are not reported, since discordance with absolute values may lead to misinterpretation of CBC data. Current Interpretive Data was last revised on 2017. Basophil pct 0.5 % [facility] Comment: Interpretive Data Percent cell count reference ranges are not reported, since discordance with absolute values may lead to misinterpretation of CBC data. Current Interpretive Data was last revised on 2017. Blood 08/21/2024 1:41 PM CDT 08/21/2024 1:41 PM CDT us Laura CAREY LAB BLOOD ORDERABLES Final Re sult [address] Department [place] [address] * (ABNORMAL) CBC with auto differential (08/21/2024 [...] BLOOD ORDERABLES Final Result Performing Organization Address City/[facility] Co de Phone Number [address] [facility] [address] [place], [place] [id number] * Lipase (08/21/2024 1:41 PM CDT) Pathologist [facility] Lipase 54 10 - 99 Units/L Blood Venous blood specimen / Unknown 08/21/2024 1:41 PM CDT 08/21/2024 1:41 PM CDT Aaron Grimaldo MD LAB BLOOD ORDERABLES Final Result Performing Organization Address City/[facility]/ZIP Co de Phone Number [address] [place] [address] * (ABNORMAL) Comprehensive metabolic panel (08/21/2024 1:41 [...] LAB BLOOD ORDERABLES Final Result [address] [place] [address] * ECG 12 lead (08/21/2024 12:58 PM CDT) 08/21/2024 12:5 8 PM CDT Narrative [facility] - 08/21/2024 7:10 PM CDT Vent Rate: 103 bpm RR Interval: 581 msec NC Interval: 139 msec QRS Duration: 130 msec QT Interval: 337 msec QTC Interval: 396 msec P-R-T [place]: 15 - 31 - 16 degrees IMPRESSION: SINUS TACHYCARDIA INDETERMINATE AXIS RIGHT BUNDLE BRANCH BLOCK [120+ ms QRS DURATION, UPRIGHT V1, 40+ ms S IN I/aVL/V4/V5/V6] ABNORMAL ECG NO CHANGE FROM PREVIOUS TRACING NOTED Electronically Signed By: Duglas Lares MD Aaron Grimaldo MD ECG ORDERABLES Final Resu lt [facility] [employer] * CT Chest Abdomen Pelvis WO Contrast (01/21/2023 11:07 AM CDT) Anatomical Region Laterality Modality Body N/A Computed Tomogra phy Arpit Han MD PhD IMG CT PROCEDURES Prudence l Result * (ABNORMAL) Hemoglobin A1c (06/12/2020 11:07 AM INSTRUMENT ADJUSTER) Hgb A1C 7.1(H) 4.0 - 5.6 % [address] Estimated Average Glucose 157 mg/dL [address] Comment: The ADA recommends reporting an estimated Average Glucose (eAG) with all Hemoglobin A1c results using the equation derived from a study of 507 normal and diabetic adults. Minority populations were underrepresented and children were not included. (Diabetes Care 31:2778-9571, 2008). The eAG is not equivalent to a fasting glucose. Blood specimen (specimen) 06/12/2020 11:07 AM INSTRUMENT ADJUSTER 06/12/2020 11:07 AM INSTRUMENT ADJUSTER Radha Vail MD LAB BLOOD ORDERABLES Final Res ult [address] Department [place] [address] from Last 3 Months or Most Recently Relevant to Health Maintenance Insurance MEDICARE [facility] MEDICARE BLUE CROSS MEDICARE SUPPLEMENT MEDICARE [facility] MEDICARE SUPPLEMENT Advance Directives For more information, please contact: [phone] * Full Code (Latest Code Status on [...] 12:19 PM 03/03/2018 4:40 PM Care Teams Application Chemist Relationship Specialty Start Date End Date Dre Zavaleta DO [address] [place], [place] [id number] PCP - General Internal Medicine 01/14/24 [place] [address] [address] [facility] [address] [place] [address] Consulting Physician Pulmonary Disease 06/25/20 Arpit Han MD PhD [address] [place] [address] Radiation Oncologist Radiation Oncology 10/04/21 [place] [address] [address] [facility] [address] [place] [address] Referring Physician Pulmonary Disease 10/04/21 Harvey Alex MD [address] [facility] [address] [place] [id number] Referring Physician Hematology 02/01/22
--- OUTSIDE RECORDS SUMMARY | 2024-10-13 02:05 | XMS_ITS | Clinical Summary ---
Author Organization [facility] Address [address] [place] [address] Care Team Providers Care Marketing Information Manager Name Role Phone Dre Zavaleta DO Primary Care Provider [phone] Allergies Active Allergy Reactions Criticality Noted Date [...] take 0.5 tablet PO daily 1 Active [place]-3 Fatty Acids 1,000 mg Capsule Take 1,000 [...] H. Active fluticasone propionate (FLONASE) 50 mcg/spray [place], Suspension nasal inhaler Administer 2 Sprays in [...] Encounters Date Type Department Care Team Description 09/21/2024 External Device Data STL ABSTRACTION Provider, Abstract 08/12/2024 Orders Only [facility] Oncology and Hematology [facility] [address] [place] [address] Harvey Alex MD 08/11/2024 10:00 AM CDT Office Visit [facility] Oncology and Hematology [facility] [address] [place] [address] Harvey Alex MD Malignant neoplasm of upper lobe of left lung (CMS/HCC) (Primary Dx) 08/11/2024 Orders Only [facility] Oncology and [facility] [address] [place] [address] Harvey Alex MD from Last 3 Months [...] Smoking Tobacco: Former Cigarettes 2 40 1 198 - 1998 Tobacco Cessation:Counseling Given: Not Answered Alcohol Use Standard Drinks/Week Comments Yes 0 (1 standard drink = 0.6 oz pur e alcohol) Sex and Gender Information Value Date Recorded Sex Assigned at Not on file Legal Sex Male 10:35 AM FOUNDRY TECHNICIAN Gender Identity Not on file Sexual [...] st Contact Info) Description 02/14/2025 10:15 AM FOUNDRY TECHNICIAN Office Visit [facility] Oncology and Hematology - [place] [address] [facility] [address] [place] [address] Harvey Alex MD [address] [facility] [address] [place] [address] Health Maintenance Due Date Last Done Comments DIABETES ANNUAL FOOT EXAM 1962 DIABETES MICROALBUMIN ANNUAL SCREEN 1962 LDL CHOLESTEROL ANNUAL 1962 DTAP/TDAP/TD VACCINES (1 - Tdap) 08/04/1963 PNEUMOCOCCAL VACCINE 50+ YEA RS (1 of 2 - PCV) 08/04/1963 ZOSTER VACCINE (1 of 2) 08/04/1963 RSV VACCINE (60+ or ) (1 - 1-dose 75+ series) 08/04/2019 DIABETES HBA1C Q 6 MONTHS 07/04/20242023, 06/17/2022, 11/13/2021, Additional history exists DIABETES ANNUAL RETINAL EXAM 08/05/202404/2023, 08/06/2023, 11/13/2018, Additional history exists INFLUENZA VACCINE (#1) 2024 4, 01/21/2011, 01/11/2010 COLORECTAL SCREENING Discontinued 11/13/2023, 08/08/2022, 09/11/2017, Additional [...] Months Insurance MEDICARE PART A AND B [facility] MEDICARE PART A AND B BS SUPP Care Teams Marketing Information Manager Relationship Specialty Start Date End Date Dre Zavaleta DO [address] [facility] [address] [place] [address] PCP - General Internal Medicine 08/11/24
--- OUTSIDE RECORDS SUMMARY | 2024-10-13 02:05 | XMS_ITS | Encounter Summary ---
Author Organization [facility] Address [address] [place] [address] Care Team Providers Care Mortgage Processing Manager Name Role Phone Julius Encinas MD Primary Care Provider [phone] Valeriy Lawson MD Unavailable [phone] Encounter Details Date Type Department Care Team (Late st Contact Info) Description 08/24/2010 [facility] Outpatient Visit [facility] - Family Medicine [id number] [place] [phone] Valeriy Lawson MD [address] [place], [place] [id number] Social History Tobacco Use Types Packs/Day Years Used Date Smoking Tobacco: Former Cigarettes 0 09/20/1992 - 09/20/2000 Smokeless Tobacco: Never Comments:unk date and mon Alcohol Use Standard Drinks/Week Comments No 0 (1 standard drink = 0.6 oz pur e alcohol) Sex and Gender Information Value Date Recorded Sex Assigned at Not on file Legal Sex Male 4:21 AM SPECIALTY TRANSFORMER ASSEMBLER Gender Identity Not on file Sexual Orientation Not on file documented as of this encounter Plan of Treatment Not on file documented as of this encounter Visit Diagnoses Not on filedocumented in this encounter Care Teams Mortgage Processing Manager Relationship Specialty Start Date End Date Julius Encinas MD [address] [place] [address] PCP - General 06/10/08 Valeriy Lawson MD [address] [place] [address] 11/13/09 documented as of this encounter
--- OUTSIDE RECORDS SUMMARY | 2024-10-13 02:05 | XMS_ITS | Clinical Summary ---
Author Organization [facility] Address [address] [facility] [place] [address] Care Team Providers Care Laborer Pole Crew Name Role Phone Julius Encinas MD Primary Care Provider [phone] Valeriy Lawson MD Unavailable [phone] Source Comments [facility],non-owned Affiliates and Associated Physician Practices is amultiple site organization consisting of ambulatory clinics and hospital sitesin [place], [place], [place] and [place]. This disclosure is being madepursuant to the Care Everywhere program and may not contain all information available regarding this patient. Last updated 17.[facility] Allergies Active Allergy Reactions Criticality [...] VITAMINS PO Take by mouth daily. 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 Gender Identity Not on file Sexual Orientation [...] season) 2023 DEPRESSION SCREENING 04/07/2024 INFLUENZA VACCINE (#1) 2024 4, 01/17/2012, 01/21/2011, Additional history exists HEPATITIS B [...] patient's age to complete this topic Insurance [facility] Address: [facility] [address] [place] [address] MEDICARE SELF PAY NO INSURANCE Member Subscriber Plan / Payer (Ef fective for All Dates) Name:MegDilan Clayton Member ID:Not on file Relation to Subscriber:Not on file Name:ERINDILAN JOSHI Subscriber ID:Not on file (Home) Address: [address] [place] [address] Payer ID:Not on file Group ID:Not on file Type:Self Pay Address: [place], [place] MEDICARE [facility] Care Teams Laborer Pole Crew Relationship Specialty Start Date End Date Julius Encinas MD [address] [facility] [place] [address] PCP - General 06/10/08 Valeriy Lawson MD [address] [place] [address] 11/13/09
[2024-10-13 10:12] VITALS: BP 109/85; PULSE 94; RESP 18; TEMP 36.6; O2SAT 99
[2024-10-13] MEDS: LACTATED RINGERS 1,000 ML 150 ML IV CONT (10:16)
--- NOTE | 2024-10-13 10:23 | WPDANESEPPF ---
Anes - Initial Pre Proc Eval Procedure: Operation Date: 10/13/24 11:30 Proposed Procedures p Esophagogastroduodenoscopy - Mike Stack MD Date/Time: 10/13/24 10:23 Surgeon: Mike Stack MD Pre Op Diagnosis: Anemia, unspecified, Melena, GERD Patient Data Age: 79 Gender: M Height: 1.7 m Weight: 90 kg Last Vital Signs Temp 97.8 F 10/13/24 10:12 Pulse 94 10/13/24 10:12 Resp 18 10/13/24 10:12 BP 109/85 10/13/24 10:12 Pulse Ox 99 10/13/24 10:12 O2 Del Method Room Air 10/13/24 10:12 Allergies Allergy/AdvReac Type Severity Reaction Status Date / Time Iodinated Contrast Media Allergy Severe Hives Verified 10/13/24 10:09 infliximab (From Remicade) AdvReac Intermediate Rash Verified 10/13/24 10:09 Home Medications ?Medication ?Instructions ?Recorded ?Confirmed ?Type hydrocodone 10 mg-acetaminophen 1 tablet PO Q6H PRN Pain 02/21/20 10/13/24 History 325 mg tablet tamsulosin 0.4 mg capsule 0.4 mg PO QHS 08/01/20 10/13/24 History blood-glucose meter (Accu-Chek #1 ea 08/04/20 09/14/24 Rx Guide Glucose Meter) lancets (Accu-Chek Multiclix #200 ea 08/04/20 09/14/24 Rx Lancet) blood sugar diagnostic (Accu-Chek #100 ea 11/06/20 09/14/24 Rx Guide test strips) aspirin 81 mg tablet,delayed 81 mg PO DAILY 06/25/22 10/13/24 History release (Aspir-) magnesium 250 mg tablet 400 mg PO DAILY 06/25/22 10/13/24 History budesonide 160 mcg-glycopyr 9 2 inh inhalation BID 07/25/22 10/13/24 History mcg-formot 4.8 mcg/actuation HFA inhaler (Breztri Aerosphere) albuterol sulfate 90 mcg/actuation 2 puff inhalation Q4-6H PRN 03/12/23 10/04/24 History aerosol inhaler Shortness Of Breath azelastine 137 mcg (0.1 %) nasal 137 mcg (0.137 mL) intranasal Q12H 04/10/23 10/13/24 Rx spray #30 mL hyoscyamine sulfate 0.125 mg 0.125 mg PO QID PRN esophageal 04/10/23 10/04/24 Rx disintegrating tablet spasms #45 tabs oxygen-air delivery systems 04/10/23 09/14/24 History trazodone 50 mg tablet See Rx Instructions .Route 05/23/23 10/04/24 Rx .COMPLEX #270 tabs hydroxychloroquine 200 mg tablet 200 mg PO DAILY 06/23/23 10/13/24 History celecoxib 200 mg capsule 200 mg PO DAILY 10/27/23 10/13/24 History fluticasone propionate 50 See Rx Instructions .Route 04/28/24 10/13/24 Rx mcg/actuation nasal .COMPLEX #48 grams spray,suspension pravastatin 20 mg tablet 20 mg PO HS #90 tabs 06/28/24 10/13/24 Rx triamterene 37.5 1 tablet PO QAM #90 tabs 06/28/24 10/13/24 Rx mg-hydrochlorothiazide 25 mg tablet leflunomide 20 mg tablet 20 mg PO DAILY 07/15/24 10/04/24 History cholestyramine (with sugar) 4 gram 4 g PO BID #60 ea 08/11/24 10/13/24 Rx powder for susp in a packet (Questran) amoxicillin 875 mg tablet 875 mg PO Q12H #20 tabs 08/26/24 10/04/24 Rx diltiazem HCl 240 mg See Rx Instructions .Route 09/29/24 10/13/24 Rx capsule,extended release 24 hr .COMPLEX #90 caps famotidine 20 mg tablet See Rx Instructions .Route 09/29/24 10/13/24 Rx .COMPLEX #90 tabs metformin 500 mg tablet 500 mg PO BID 10/04/24 10/13/24 History omeprazole 40 mg capsule,delayed 40 mg PO DAILY 10/04/24 10/13/24 History release prednisone 10 mg tablet 10 mg PO QID 10/04/24 10/13/24 History Patient hx anesthesia problems: none Family hx anesthesia problems: none Results Review: All pre-operative results and documents have been reviewed as part of the pre-operative evaluation. PMFSH Past Medical History Medical History Black stool 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 BMI 35.0-35.9,adult Colon polyp Lung cancer Influenza A COVID-19 Shingles Kidney stones GERD (gastroesophageal reflux disease) History of rectal polyps Gastrointestinal ulcer Diverticulitis Diverticulosis Emphysema of lung Cataracts, bilateral Obesity Hypercholesterolemia Benign essential hypertension Benign prostatic hyperplasia with lower urinary tract symptoms Chronic low back pain Chronic obstructive pulmonary disease, unspecified Elevated LFTs Follicular lymphoma grade II, unspecified site Lung nodule Mixed hyperlipidemia Obstructive sleep apnea (adult) (pediatric) Rheumatoid arthritis involving multiple sites Splenomegaly Surgical History Surgical History Hx of cholecystectomy History of right knee joint replacement Hx of cataract surgery History of back surgery Family History Family History Mother Family history of osteoarthritis Family history of congestive heart failure, Onset Age: 90 Family history of malignant neoplasm of breast in first degree relative Sibling Carcinoma of colon, Onset Age: 66 Family history of lupus erythematosus, Onset Age: 21 Family history of primary malignant neoplasm of liver Father Acute myocardial infarction Hypertension, Onset Age: 68 Family history of cardiovascular disease, Onset Age: 68 Social History Social History Smoking packs per day: 2 Smoking cigarettes per day: 40.0 Years smoked: 50 Smoking pack-years: 100.00 Smoking status: Former smoker Tobacco type: cigarettes Second hand tobacco smoke exposure: No Smoking end date: 07/07/99 Alcohol intake: never Substance use: never Substance use type: does not use Do You Feel Safe in your Home?: Yes Lack of Transportation: YES Lack of Food: Never True Current Housing: I Have Housing Concerned About Future Housing: No Difficulty Paying Gas/Electric Bills: No Difficulty Paying for Meds: No Currently Unemployed: No Education: High School Diploma/GED Difficulty w/ Childcare or Family Care: No Living arrangements: with family Occupation/Education: retired 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 ) Neurological: alert and oriented Last oral intake: >/= 8 hours ASA classification: IV Emergent: no Anesthetic plan: proceed Anesthesia type and monitoring: general GIVS and standard monitoring Results Review: All pre-operative results and documents have been reviewed as part of the pre-operative evaluation. Complicated pt w anemia, now for EGD. COPD w 100 pack year hx, uses O2 w physical activity, HTN, obesity, DM, hx of follicular lymphoma. Informed Consent: The patient's anesthetic plan and its attendant risks and benefits were discussed with the patient/family/POA. Questions were solicited and answers provided to the satisfaction of the patient/family/POA.
--- NOTE | 2024-10-13 10:45 | WPDHPUPDATE1 ---
History and Physical Update Update Date/Time: 10/13/24 10:45 History and Physical has been reviewed, including an updated exam of the patient. There are NO changes in the patient's condition. Risks, benefits, and alternatives have been discussed and questions answered. Patient agrees to proceed with procedure.
[2024-10-13 10:52] VITALS: BP 101/48; PULSE 57; RESP 15; O2SAT 100
--- NOTE | 2024-10-13 10:55 | S_PTH ---
PATIENT: Dilan Weaver LOC: [facility]LVARO Méndez#:[id number] AGE/SX: 79/M ROOM: RE10/13/[address]: Mike Stack MD : 1945 BED: DIS: 10/13/2024 SPEC #: [id number] RECD: 10/13/24 13:19 STATUS: GABRIELE RESteve #: [id number] SAEED: 10/13/24 10:[address]: Mike Stack DEPT: [facility] Surgical RECD BY: Litzy Mcgee ENTERED: 10/13/24 13:20 SP TYPE: Surgical OTHR DR: Dre Zavaleta DO Tissues: A - Gastric Biopsy B - Small Bowel Bx Procedures: Hematoxylin and Eosin Stain Gross and Microscopic Level 4
[2024-10-13 11:02] VITALS: BP 102/54; PULSE 58; RESP 17; O2SAT 100
[2024-10-13 11:12] VITALS: BP 116/56; PULSE 61; RESP 17; O2SAT 100
== END 2024-10-13 11:26 | disposition home or self-care (01) ==
PROVIDERS: PCP Internal Medicine; Referring Provider Nurse Practitioner Family; Visit Provider Internal Medicine Gastroenterology
PROC: 0DJ08ZZ Inspection of Upper Intestinal Tract, Via Natural or Artificial Opening Endoscopic (ICD-10-PCS; CPT 43239; principal; 2024-10-13 11:30)
DX: K21.9 Gastro-esophageal reflux disease without esophagitis (principal); K31.89 Other diseases of stomach and duodenum; K29.70 Gastritis, unspecified, without bleeding; J43.9 Emphysema, unspecified; I10 Essential (primary) hypertension; E11.9 Type 2 diabetes mellitus without complications; E78.2 Mixed hyperlipidemia; K58.2 Mixed irritable bowel syndrome; G47.33 Obstructive sleep apnea (adult) (pediatric); N40.0 Benign prostatic hyperplasia without lower urinary tract symptoms; G89.29 Other chronic pain; M54.50 Low back pain, unspecified; M06.89 Other specified rheumatoid arthritis, multiple sites; E66.9 Obesity, unspecified; Z68.31 Body mass index [BMI] 31.0-31.9, adult; Z79.84 Long term (current) use of oral hypoglycemic drugs; Z79.891 Long term (current) use of opiate analgesic; Z79.52 Long term (current) use of systemic steroids; Z79.82 Long term (current) use of aspirin; Z79.51 Long term (current) use of inhaled steroids; Z79.1 Long term (current) use of non-steroidal anti-inflammatories (NSAID); Z98.890 Other specified postprocedural states; Z98.1 Arthrodesis status; Z90.49 Acquired absence of other specified parts of digestive tract; Z86.0100 Personal history of colon polyps, unspecified; Z87.891 Personal history of nicotine dependence; Z87.442 Personal history of urinary calculi; Z87.19 Personal history of other diseases of the digestive system; Z85.118 Personal history of other malignant neoplasm of bronchus and lung; Z80.3 Family history of malignant neoplasm of breast; Z80.0 Family history of malignant neoplasm of digestive organs; Z82.49 Family history of ischemic heart disease and other diseases of the circulatory system
CPT/HCPCS: 43239; 82948; 88305; J2704; J7120

== ENCOUNTER 2024-11-15 14:15 | Outpatient (CLI) | payer MEDICARE, SELFPAY ==
--- OUTSIDE RECORDS SUMMARY | 2024-11-15 14:37 | XMS_ITS | Encounter Summary ---
Author Organization [facility] Address [address] [facility] [place] [address] Care Team Providers Care Monogram And Letter Paster Name Role Phone Julius Encinas MD Primary Care Provider [phone] Valeriy Lawson MD Unavailable [phone] Encounter Details Date Type Department Care Team (Late st Contact Info) Description 08/24/2010 [facility] Outpatient Visit [facility] - Family Medicine [address] [place] [phone] Valeriy Lawson MD [address] [place], [place] [id number] Social History Tobacco Use Types Packs/Day Years Used Date Smoking Tobacco: Former Cigarettes 0 09/20/1992 - 09/20/2000 Smokeless Tobacco: Never Comments:unk date and mon Alcohol Use Standard Drinks/Week Comments No 0 (1 standard drink = 0.6 oz pur e alcohol) Sex and Gender Information Value Date Recorded Sex Assigned at Not on file Legal Sex Male 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
--- OUTSIDE RECORDS SUMMARY | 2024-11-15 14:37 | XMS_ITS | Encounter Summary ---
Author Organization [facility] Health Address [address] [place] [address] Care Team Providers Care Brush Or Broom Cutter Name Role Phone Julius Encinas MD Primary Care Provider [phone] Valeriy Lawson MD Unavailable [phone] Encounter Details Date Type Department Care Team (Late st Contact Info) Description 09/23/2013 [facility] Outpatient Visit EXTERNAL NON-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
--- OUTSIDE RECORDS SUMMARY | 2024-11-15 14:37 | XMS_ITS | Encounter Summary ---
Author Organization [facility] Health Address [address] [place] [address] Care Team Providers Care Fundraising Director Name Role Phone Julius Encinas MD Primary Care Provider Valeriy Lawson MD Unavailable [phone] Encounter Details Date Type Department Care Team (Late st Contact Info) Description 05/04/2013 [facility] Outpatient Visit EXTERNAL NON-[facility] DEPT Valeriy Lawson MD [address] [place] [phone] Social History Tobacco Use Types Packs/Day Years Used Date Smoking Tobacco: Former Cigarettes 0 09/20/1992 - 09/20/2000 Smokeless Tobacco: Never Comments:unk date and mon Alcohol Use Standard Drinks/Week Comments No 0 (1 standard drink = 0.6 oz pur e alcohol) Sex and Gender Information Value Date Recorded Sex Assigned at Not on file 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
--- OUTSIDE RECORDS SUMMARY | 2024-11-15 14:37 | XMS_ITS | Clinical Summary ---
Author Organization [facility] Address [address] [place] [address] Care Team Providers Care Manufacturer Agent Name Role Phone Unavailable Primary Care Provider Unavailabl e Social History Tobacco Use Types Packs/Day Years Used Date Smoking Tobacco: Never Assessed Sex and Gender Information Value Date Recorded Sex Assigned at Not on file Legal Sex Male 11:12 AM EDT Gender Identity Not on file Sexual Orientation Not on file Plan of Treatment Health Maintenance Due Date Last Done Comments Annual Visit Topic 1945 DTaP/Tdap/Td Vaccines (1 - Tdap) 08/04/1963 Pneumococcal Vaccine: 65+ Ye ars (1 of 2 - PCV) 1994 HIB Vaccines Aged Out No longer eligi ble based on patient's age to complete this topic HPV Vaccines Aged Out No longer eligi ble based on patient's age to complete this topic Hepatitis A Vaccines Aged Out No long er eligible based on patient's age to complete this topic Hepatitis B Vaccines Aged Out No long er eligible based on patient's age to complete this topic IPV Vaccines Aged Out No longer eligi ble based on patient's age to complete this topic Meningococcal Vaccine Aged Out No [place] eligible based on patient's age to complete this topic
--- OUTSIDE RECORDS SUMMARY | 2024-11-15 14:37 | XMS_ITS | Clinical Summary ---
Author Organization [facility] Address [address] [place] [address] Care Team Providers Care Group Worker Name Role Phone Julius Encinas MD Primary Care Provider [phone] Valeriy Lawson MD Unavailable [phone] Source Comments [facility],non-owned Affiliates and Associated Physician Practices is amultiple site organization consisting of ambulatory clinics and hospital sitesin [place], [place], [place] and [place]. This disclosure is being madepursuant to the Care Everywhere program and may not contain all information available regarding this patient. Last updated 17.[facility] Allergies Active Allergy Reactions Criticality [...] VITAMINS PO Take by mouth daily. Active Prague-3 Fatty Acids (FISH OIL) 1200 MG CAPS [...] 1999 Rheumatoid arthritis of [facility] with negative rheumatoid factor 05/25/2008 Overview (02/12/2015): Start date 2001, Enbrel 2007(start 02/11/2008) x 5 months- unresponsive,methotrexate 2003, screen 2011 for fostimatanib arthritis study and withdrawn 10/30/12 due to sponsor's decision. Sirukumab RA study screening date 10/19/2013 but screen failed due to eligibility criteria not met. 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 Gender Identity Not on file Sexual Orientation [...] patient's age to complete this topic Insurance ANTHEM MEDICARE ANTHEM Member Subscriber Plan / Payer (Ef fective for All Dates) Name:Dilan Weaver [place] Relation to Subscriber:Self Name:Dilan Weaver Payer ID:[id number] (NAIC) Type:Commercial Address: [place] [id number] SELF PAY NO INSURANCE Member Subscriber Plan / Payer (Ef fective for All Dates) Name:Meg Dilan E Member ID:Not on file Relation to Subscriber:Not on file Name:MEGDILAN Subscriber ID:Not on file (Home) Address: [address] [place] [id number] Payer ID:Not on file Group ID:Not on file Type:Self Pay Address: [place], [place] [facility] Care Teams Group Worker Relationship Specialty Start Date End Date Julius Encinas MD [address] [place] [phone] PCP - General 06/10/08 Valeriy Lawson MD [address] [place] [address] 11/13/09
--- OUTSIDE RECORDS SUMMARY | 2024-11-15 14:37 | XMS_ITS | Encounter Summary ---
Author Organization [facility] Address [address] [place] [address] Care Team Providers Care Oceanographer Geological Name Role Phone Julius Encinas MD Primary Care Provider [phone] Valeriy Lawson MD Unavailable [phone] Encounter Details Date Type Department Care Team (Late st Contact Info) Description 02/11/2014 Therapy Visit EXTERNAL NON-[facility] DEPT Valeriy Lawson MD [address] [place] [address] Social History Tobacco Use Types Packs/Day Years Used Date Smoking Tobacco: Former Cigarettes 0 09/20/1992 - 09/20/2000 Smokeless Tobacco: Never Comments:unk date and mon Alcohol Use Standard Drinks/Week Comments No 0 (1 standard drink = 0.6 oz pur e alcohol) Sex and Gender Information Value Date Recorded Sex Assigned at Not on file 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
--- OUTSIDE RECORDS SUMMARY | 2024-11-15 14:37 | XMS_ITS | Encounter Summary ---
Author Organization [facility] Address [address] [place] [address] Care Team Providers Care Attendance Secretary Name Role Phone Julius Encinas MD Primary Care Provider [phone] Valeriy Lawson MD Unavailable [phone] Encounter Details Date Type Department Care Team (Late st Contact Info) Description 04/13/2014 Therapy Visit EXTERNAL NON-[facility] DEPT Unknown, Provider Social History Tobacco Use Types Packs/Day Years Used Date Smoking Tobacco: Former Cigarettes 0 09/20/1992 - 09/20/2000 Smokeless Tobacco: Never Comments:unk date and mon Alcohol Use Standard Drinks/Week Comments No 0 (1 standard drink = 0.6 oz pur e alcohol) Sex and Gender Information Value Date Recorded Sex Assigned at Not on file 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
--- OUTSIDE RECORDS SUMMARY | 2024-11-15 14:37 | XMS_ITS | Clinical Summary ---
Author Organization [facility] Address [address] [place] [address] Care Team Providers Care Help Desk Support Specialist Name Role Phone Zia Mercedes MD Unavailable [phone] Arpit patton MD PhD Unavailable [phone] Zia Mercedes MD Unavailable [phone] Harvey Alex MD Unavailable [phone] Dre Zavaleta DO Primary Care Provider [phone] Allergies Active Allergy Reactions Criticality Noted Date [...] on chronic respiratory failure with hypoxi a ([facility]) 06/04/2020 Assessment & Plan (08/09/2021 [...] 06/04/2020 Assessment & Plan (06/04/2020 6:00 PM FILTERING MACHINE TENDER HELPER): Mild elevation of AST and ALT most likely due to acute infection. Will monitor while on remdesivir. Respiratory alkalosis 06/04/2020 Assessment & Plan (06/04/2020 6:01 PM FILTERING MACHINE TENDER HELPER): Due to hyperventilation from hypoxia on admission. Monitor respiratory function with supplemental oxygen. Chronic obstructive pulmonar y disease with acute exacerbation ([facility]) 06/04/2020 Assessment & Plan (08/09/2021 1:52 PM CDT): Patient on prednisone, symbicort, and albuterol prn at home. - continue home meds - Mucinex DM and Tessalon perles added for cough Assessment & Plan (08/09/2021 1:35 AM CDT): Continue breathing treatments Assessment & Plan (06/04/2020 6:02 PM FILTERING MACHINE TENDER HELPER): Mild COPD exacerbation due to COVID-19, breath sounds diminished with mild end expiratory wheezing and a cough productive of small amounts of yellow sputum. Continue steroids for COVID-19 along with home Symbicort and albuterol p.r.n. COVID-19 05/29/2020 Assessment & Plan (06/04/2020 6:04 PM FILTERING MACHINE TENDER HELPER): Shortness of breath worsened since initial diagnosis [...] 05/29/2020 Assessment & Plan (06/04/2020 5:59 PM FILTERING MACHINE TENDER HELPER): Unable to obtain CTA chest because of allergy to IV contrast, but symptoms are not suggestive of acute the and D-dimer is very slightly above the threshold for normal. Will treat with Lovenox at half therapeutic dose because of COVID-19. Rheumatoid arthritis involvi ng multiple sites with positive rheumatoid factor ([facility]) 05/29/2020 Assessment & Plan (08/09/2021 1:49 PM CDT): Holding Plaquenil and Celebrex. Continue prednisone daily. Assessment & Plan (08/09/2021 1:33 AM CDT): Holding Plaquenil. Continue prednisone daily. Assessment & Plan (06/04/2020 5:57 PM FILTERING MACHINE TENDER HELPER): Continue home RA regimen, will need to [...] ordered Assessment & Plan (06/04/2020 5:58 PM FILTERING MACHINE TENDER HELPER): Uses CPAP at home, but does not [...] 08/21/2024 8:18 PM CDT Emergency [facility] Emergency Department [address] [place] [address] Aaron Grimaldo MD Dark stools (Primary Dx); [...] Date Comments COPD (chronic obstructive pulmonary disease) GERD (gastroesophageal reflux disease) Shingles X 2 Staph infection right thigh Kidney stones Esophageal spasm Pneumonia 2013 Arthritis rheumatoid Hypertension Emphysema of lung Sleep apnea Hyperlipidemia Osteoarthritis Lymphoma (HCC) monitored Lung nodule Pleurisy BPH (benign prostatic hyperplasia) Type 2 diabetes mellitus Chest pain Family History Medical History Relation [...] on file Legal Sex Male 1:51 AM FILTERING MACHINE TENDER HELPER Gender Identity Not on file Sexual Orientation [...] minimal pain. Medical Devices Implanted Type Area Router Machine Operator Device Identifier Shelf Expiration Date Model [...] CDT HEMOGLOBIN A1C Add-On 06/12/2020 11:07 AM FILTERING MACHINE TENDER HELPER from Last 3 Months or Most Recently [...] CH Trop T hs interp Insignificant CERNER Blood 08/21/2024 6:12 PM CDT 08/21/2024 6:12 PM CDT us Laura CAREY LAB BLOOD ORDERABLES Final Re sult [address] [address] Department [place] [address] * XR Chest 1 Vw [...] LAB BLOOD ORDERABLES Final Re sult [address] [place] [address] * Urinalysis reflex to microscopic and culture [...] tendency for uric acid stone formation. Source: [facility] Current Interpretive Data was last revised [...] for microscopic UA and culture not met. [facility] Urine 08/21/2024 4:00 PM CDT 08/21/2024 4:12 PM CDT Aaron Grimaldo MD LAB MICROBIOLOGY - GENERAL ORDERABLES Final Result Performing Organization Address [facility] Co de Phone Number [address] [place] [address] * (ABNORMAL) Troponin T high-sensitivity series (baseline, 2hr, 4hr, 6hr) (08/21/2024 1:41 PM CDT) Pathologist [facility] Trop T hs 26(H) <=22 ng/L Comment: Interpretive Data For further hscTnT resources including the diagnostic algorithm and an aid in interpretation, copy and paste this link: [email or web address].[email or web address] Current Interpretive Data last revised 2020. Blood 08/21/2024 1:41 PM CDT 08/21/2024 1:41 PM CDT Aaron Grimaldo MD LAB BLOOD ORDERABLES Final Result Performing Organization Address [facility] Co de Phone Number [address] Department of [employer] [place], [place] [id number] * (ABNORMAL) eGFR (08/21/2024 1:41 PM CDT) [facility] eGFR 31(L) >=60 mL/min/1. 73 m2 [...] CAREY LAB BLOOD ORDERABLES Final Re sult [facility] [address] [place] [address] * (ABNORMAL) Differential, auto (08/21/2024 1:41 PM CDT) Pathologist [facility] Neutrophil abs 5.79 1.50 - 6.50 K/cumm Imm gran abs 0.08 0.00 - 0.10 K/cumm [facility] Lymphocyte abs 0.54(L) 0.80 - 3.30 K/cumm [facility] Monocyte abs 0.91(H) 0.20 - 0.80 K/cumm [facility] Eosinophil abs 0.23 0.00 - 0.50 K/cumm [facility] Basophil abs 0.04 0.00 - 0.10 K/cumm [facility] Neutrophil pct 76.3 % [facility] Comment: Interpretive Data Percent cell count reference ranges are not reported, since discordance with absolute values may lead to misinterpretation of CBC data. Current Interpretive Data was last revised on 2017. Imm gran pct 1.1 % [facility] Comment: Interpretive Data Percent cell count reference [...] revised on 2017. Basophil pct 0.5 % [facility] Comment: Interpretive Data Percent cell count reference ranges are not reported, since discordance with absolute values may lead to misinterpretation of CBC data. Current Interpretive Data was last revised on 2017. Blood 08/21/2024 1:41 PM CDT 08/21/2024 1:41 PM CDT us Laura CAREY LAB BLOOD ORDERABLES Final Re sult [facility] [address] [place] [address] * (ABNORMAL) CBC with auto differential (08/21/2024 1:41 PM CDT) WBC 7.59 3.80 - 9.90 K/cumm Hgb 10.2(L) 13.0 - 17.5 g/dL [facility] Hct 33.0(L) 38.9 - 50.3 % [facility] Plt 157 150 - 400 K/cumm [facility] MPV 10.7 9.1 - 12.3 fL [facility] RBC 4.14(L) 4.30 - 5.80 M/cumm CERNER [...] BLOOD ORDERABLES Final Result Performing Organization Address [facility] Co de Phone Number [facility] [address] Department [place] [address] * Lipase (08/21/2024 1:41 PM CDT) [facility] Lipase 54 10 - 99 Units/L Blood Venous blood specimen / Unknown 08/21/2024 1:41 PM CDT 08/21/2024 1:41 PM CDT Aaron Grimaldo MD LAB BLOOD ORDERABLES Final Result Performing Organization Address [facility] de Phone Number [facility] [address] [place] [address] * (ABNORMAL) Comprehensive metabolic panel (08/21/2024 1:41 PM CDT) Pathologist [facility] Sodium 135 135 - 145 mmol/L Potassium, pl 3.8 3.3 - 4.9 mmol/L CERNER Chloride 102 97 - 110 mmol/L CERNER CH CO2 21(L) 22 - 32 mmol/L CERNER Anion gap 12 2 - 15 mmol/L [facility] BUN 27(H) 6 - 25 mg/dL C[facility]ER Creatinine 2.14(H) 0.80 - 1.30 mg/dL CERNER [...] Grimaldo MD LAB BLOOD ORDERABLES Final Result [facility] [address] [place] [address] * ECG 12 lead (08/21/2024 12:58 PM CDT) 08/21/2024 12:5 8 PM CDT Narrative [facility] - 08/21/2024 7:10 PM CDT Vent Rate: 103 bpm RR Interval: 581 msec ND Interval: 139 msec QRS Duration: 130 msec QT Interval: 337 msec QTC Interval: 396 msec P-R-T [place]: 15 - 31 - 16 degrees IMPRESSION: SINUS TACHYCARDIA INDETERMINATE AXIS RIGHT BUNDLE BRANCH BLOCK [120+ ms QRS DURATION, UPRIGHT V1, 40+ ms S IN I/aVL/V4/V5/V6] ABNORMAL ECG NO CHANGE FROM PREVIOUS TRACING NOTED Electronically Signed By: Duglas Lares MD Aaron Grimaldo MD ECG ORDERABLES Final Resu lt [facility] * CT Chest Abdomen Pelvis WO Contrast (01/21/2023 11:07 AM CDT) Anatomical Region Laterality Modality Body N/A Computed Tomogra phy Arpit Han MD PhD IMG CT PROCEDURES Prudence l Result * (ABNORMAL) Hemoglobin A1c (06/12/2020 11:07 AM FILTERING MACHINE TENDER HELPER) Hgb A1C 7.1(H) 4.0 - 5.6 % [address] Estimated Average Glucose 157 mg/dL [address] Comment: The ADA recommends reporting an estimated Average Glucose (eAG) with all Hemoglobin A1c results using the equation derived from a study of 507 normal and diabetic adults. Minority populations were underrepresented and children were not included. (Diabetes Care 31:9473-1543, 2008). The eAG is not equivalent to a fasting glucose. Blood specimen (specimen) 06/12/2020 11:07 AM FILTERING MACHINE TENDER HELPER 06/12/2020 11:07 AM FILTERING MACHINE TENDER HELPER Radha Vail MD LAB BLOOD ORDERABLES Final Res ult Performing Organization Address [facility]/ZIP Co de Phone Number [facility] [address] [place] [address] from Last 3 Months or Most Recently Relevant to Health Maintenance Insurance MEDICARE [facility] MEDICARE BLUE CROSS MEDICARE SUPPLEMENT MEDICARE [facility] MEDICARE SUPPLEMENT Advance Directives For more information, please contact: [phone] * Full Code (Latest Code Status on [...] 12:19 PM 03/03/2018 4:40 PM Care Teams Help Desk Support Specialist Relationship Specialty Start Date End Date Dre Zavaleta DO [address] [facility] [address] [place] [address] PCP - General Internal Medicine 01/14/24 [place] [address] [address] Consulting Physician Pulmonary Disease 06/25/20 Arpit Han MD PhD [address] [place] [address] Radiation Oncologist Radiation Oncology 10/04/21 [place] [address] [address] Referring Physician Pulmonary Disease 10/04/21 Harvey Alex MD [address] [address] Referring Physician Hematology 02/01/22
--- OUTSIDE RECORDS SUMMARY | 2024-11-15 14:37 | XMS_ITS | Clinical Summary ---
Author Organization [facility] Address [address] [place] [address] Care Team Providers Care Reed Polisher Name Role Phone Dre Zavaleta DO Primary Care Provider [phone] Allergies Active Allergy Reactions Criticality Noted Date [...] 180 mg by mouth daily. Active hydroCHLOROthiaz jreica 25 mg tablet Take 25 mg by mouth daily. Active docosahexaenoic acid/epa (FISH OIL ORAL) Take by mouth. Activ e FLUTICASONE FUROATE INHALATION Take by inhalation. Active etanercept 50 mg/mL (0.98 mL) Syringe Inject 50 mg by subcutaneous injection. Active predniSONE (DELTASONE) 10 mg tablet Take 1 tablet PO daily x 5 days, then take 0.5 tablet PO daily 1 Active [place]-3 Fatty Acids 1,000 mg Capsule Take 1,000 [...] H. Active fluticasone propionate (FLONASE) 50 mcg/spray [place], Suspension nasal inhaler Administer 2 Sprays in [...] Smoking Tobacco: Former Cigarettes 2 40 1 188 - 0905 Tobacco Cessation:Counseling Given: Not Answered Alcohol Use Standard Drinks/Week Comments Yes 0 (1 standard drink = 0.6 oz pur e alcohol) Sex and Gender Information Value Date Recorded Sex Assigned at Not on file Legal Sex Male 10:35 AM EMPLOYEE REPRESENTATIVE Gender Identity Not on file Sexual [...] st Contact Info) Description 02/14/2025 10:15 AM EMPLOYEE REPRESENTATIVE Office Visit [facility] Oncology and Hematology - [place] [address] [facility] [address] [place] [address] Harvey Alex MD [address] [facility] [address] [place] [address] Health Maintenance Due Date Last Done Comments DIABETES ANNUAL FOOT EXAM 1962 DIABETES MICROALBUMIN ANNUAL SCREEN 1962 LDL CHOLESTEROL ANNUAL 1962 DTAP/TDAP/TD VACCINES (1 - Tdap) 08/04/1963 PNEUMOCOCCAL VACCINE 50+ YEA RS (1 of 2 - PCV) 08/04/1963 ZOSTER VACCINE (1 of 2) 08/04/1963 RSV VACCINE (60+ or ) (1 - 1-dose 75+ series) 08/04/2019 INFLUENZA VACCINE (#1) 2024 4, 01/21/2011, 01/11/2010 DIABETES HBA1C Q 6 MONTHS 01/21/20252024, 07/16/2024, 01/05/2024, Additional history exists DIABETES ANNUAL RETINAL EXAM 08/06/202505/2024, 08/06/2023, 08/06/2023, Additional history exists COLORECTAL SCREENING Discontinued 11/13/2023, 08/08/2022, 09/11/2017, Additional history exists Colorectal Cancer Screening Discontinued FIT-DNA Q 3 years Discontinued FIT/FOBT Q 1 year Discontinued Flex Sig/CT Colonography Q 5 years Discontinued Insurance MEDICARE PART A AND B [facility] MEDICARE PART A AND B [facility] Care Teams Reed Polisher Relationship Specialty Start Date End Date Dre Zavaleta DO [address] [facility] [address] [place] [address] PCP - General Internal Medicine 08/11/24
--- OUTSIDE RECORDS SUMMARY | 2024-11-15 14:37 | XMS_ITS | Encounter Summary ---
Author Organization [facility] Health Address [address] [place] [address] Care Team Providers Care Assessment Rn Name Role Phone Julius Encinas MD Primary Care Provider [phone] Valeriy Lawson MD Unavailable [phone] Encounter Details Date Type Department Care Team (Late st Contact Info) Description 02/10/2014 [facility] Outpatient Visit EXTERNAL NON-[facility] DEPT Valeriy Lawson MD [address] [place] [address] Social History Tobacco Use Types Packs/Day Years Used Date Smoking Tobacco: Former Cigarettes 0 09/20/1992 - 09/20/2000 Smokeless Tobacco: Never Comments:unk date and mon Alcohol Use Standard Drinks/Week Comments No 0 (1 standard drink = 0.6 oz pur e alcohol) Sex and Gender Information Value Date Recorded Sex Assigned at Not on file Legal Sex Male 4:21 AM MEDICAL PRACTICE MANAGER Gender Identity Not on file Sexual Orientation Not on file documented as of this encounter Plan of Treatment Not on file documented as of this encounter Visit Diagnoses Not on filedocumented in this encounter Care Teams Assessment Rn Relationship Specialty Start Date End Date Julius Encinas MD [address] [email or web address] [address] PCP - General 06/10/08 Valeriy Lawson MD [address] [place] [address] 11/13/09 documented as of this encounter
--- OUTSIDE RECORDS SUMMARY | 2024-11-15 14:37 | XMS_ITS ---
Author Organization [facility] Address [address] [place] [address] Care Team Providers Care Java Consultant Name Role Phone Zia Mercedes MD Unavailable [phone] Arpit Han MD PhD Unavailable [phone] Zia Mercedes MD Unavailable [phone] Harvey Alex MD Unavailable [phone] Dre Zavaleta DO Primary Care Provider [phone] Active Problems Problem Noted Date Diagnosed Date [...] chronic respiratory failure with hypoxi a ([facility]) 06/04/2020 Assessment & Plan (08/09/2021 1:50 [...] 06/04/2020 Assessment & Plan (06/04/2020 6:00 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 Will monitor while on remdesivir. Respiratory alkalosis 06/04/2020 Assessment & Plan (06/04/2020 6:01 PM PUBLIC TRANSIT TROLLEY DRIVER): Due to hyperventilation from hypoxia on admission. Monitor respiratory function with supplemental oxygen. Chronic obstructive pulmonar y disease with acute exacerbation ([facility]) 06/04/2020 Assessment & Plan (08/09/2021 1:52 PM CDT): Patient on prednisone, symbicort, and albuterol prn at home. - continue home meds - Mucinex DM and Tessalon perles added for cough Assessment & Plan (08/09/2021 1:35 AM CDT): Continue breathing treatments Assessment & Plan (06/04/2020 6:02 PM PUBLIC TRANSIT TROLLEY DRIVER): Mild COPD exacerbation due to COVID-19, breath sounds diminished with mild end expiratory wheezing and a cough productive of small amounts of yellow sputum. Continue steroids for COVID-19 along with home Symbicort and albuterol p.r.n. COVID-19 05/29/2020 Assessment & Plan (06/04/2020 6:04 PM PUBLIC TRANSIT TROLLEY DRIVER): Shortness of breath worsened since initial diagnosis [...] 05/29/2020 Assessment & Plan (06/04/2020 5:59 PM PUBLIC TRANSIT TROLLEY DRIVER): Unable to obtain CTA chest because of allergy to IV contrast, but symptoms are not suggestive of acute the and D-dimer is very slightly above the threshold for normal. Will treat with Lovenox at half therapeutic dose because of COVID-19. Rheumatoid arthritis involvi ng multiple sites with positive rheumatoid factor ([facility]) 05/29/2020 Assessment & Plan (08/09/2021 1:49 PM CDT): Holding Plaquenil and Celebrex. Continue prednisone daily. Assessment & Plan (08/09/2021 1:33 AM CDT): Holding Plaquenil. Continue prednisone daily. Assessment & Plan (06/04/2020 5:57 PM PUBLIC TRANSIT TROLLEY DRIVER): Continue home RA regimen, will need to [...] ordered Assessment & Plan (06/04/2020 5:58 PM PUBLIC TRANSIT TROLLEY DRIVER): Uses CPAP at home, but does not [...]
[2024-11-15 14:56] LABS: Hematocrit 27.2 % (42.0-52.0); Hemoglobin 8.0 g/dL (14.0-18.0); Mean Corpuscular HGB Conc 29.4 g/dl (32-36); Mean Corpuscular Hemoglobin 23.7 pg (26-34); Mean Corpuscular Volume 80.5 fl (80-100); Platelet Count Result 190 k/mm3 (150-375); Red Blood Count 3.38 M/mm3 (4.6-6.20); White Blood Count 10.8 K/mm3 (4.5-10.0)
[2024-11-15 15:05] LABS: Iron 18 ug/dL (49-181)
[2024-11-15 15:14] LABS: Alanine Aminotransferase 33 U/L (6-50); Albumin Level 3.3 g/dL (3.5-5.1); Alkaline Phosphatase 166 U/L (38-126); Anion Gap 7 mmol/L (4-12); Aspartate Amino Transferase 48 U/L (17-59); Bilirubin,Total 0.3 mg/dL (0.2-1.3); Blood Urea Nitrogen 22 mg/dL (9-20); Calcium 9.0 mg/dL (8.4-10.2); Carbon Dioxide 23 mmol/L (22-30); Chloride 104 mmol/L (98-107); Estimated Glomerular Filt Rate 36; Glucose 128 mg/dL (65-110); Potassium 4.2 mmol/L (3.4-5.0); Sodium 134 mmol/L (137-145); Total Protein 6.0 g/dL (6.3-8.2)
[2024-11-15 15:23] LABS: Percent Iron Saturation 4 % (20-50)
[2024-11-15 15:48] LABS: Ferritin 12.50 ng/mL (11.1-264)
== END 2024-11-15 14:16 | disposition home or self-care (01) ==
PROVIDERS: PCP Internal Medicine; Visit Provider Nurse Practitioner Family
DX: D64.9 Anemia, unspecified (principal)
CPT/HCPCS: 36415; 80053; 82728; 83540; 83550; 85027

== ENCOUNTER 2024-11-18 12:42 | Inpatient (IN) | payer MEDICARE, SELFPAY ==
[2024-11-18] VITALS (13 sets, daily range): BP systolic 91–154; BP diastolic 45–100; PULSE 68–112; RESP 15–28; TEMP 36.4–36.6; O2SAT 97–100; BMI 33.1
--- NOTE | ~2024-11-18 | CT_ITS ---
CLINICAL INDICATION: Shortness of breath and syncope. Personal history of lung cancer and CLL on home oxygen. Lactic, acidosis, tachycardia and tachypnea. COMPARISON: 08/02/2024 [place]. TECHNIQUE: Multiple contiguous axial images of the chest, abdomen and pelvis were performed without t he administration of intravenous contrast The dose-length product (DLP) was 1341.47 mGy-cm. Automated exposure control and iterative reconstruction technique were employed. FINDINGS/OBSERVATIONS: LUNG: Panlobular emphysematous disease is redemonstrated along with right basilar atelectasis and lef t upper lobe scarring. Pleural-based scar is also noted within the right mid to upper lung field, also unchanged from prior. MEDIASTINUM: Limited evaluation without intravenous contrast. HEART: The heart is within the upper limits of normal for size, without pericardial effusion. SOFT TISSUES OF THE CHEST: Unremarkable. Liver: Redemonstration of an indeterminate focus of increased attenuation in segment 8 of measuring 3 2 x 35 x 27 mm (axial series, image 95, sagittal series, image, increased in size from prior when it measured 29 x 33 x 23 mm (axial series, image 90, sagittal series, image 37). The remainder of liver demonstrates homogeneous attenuation and is not enlarged. Gallbladder and biliary system: The gallbladder is surgically absent. Pancreas: Limited evaluation of the pancreas secondary to the lack of intravenous contrast. Spleen: The spleen demonstrates homogeneous attenuation and remains enlarged measuring 15 cm in longitudinal dimension, compared with 14.3 cm on the previous study, largely unchanged. Kidneys: 2 mm nonobstructing calcification within the interpolar region of the left kidney, unchanged from prior. Extensive vascular calcifications are present. The remainder of the bilateral kidneys are otherwise unremarkable, without hydronephrosis or obstruct ing renal calculi. Adrenal glands: Unremarkable. Gastrointestinal tract: Colonic diverticulosis extending from the hepatic flexure to the rectum is identified. No surrounding inflammatory change is appreciated, similar in appearance to 08/02/2024 No free fluid within the abdomen or pelvis. Appendix: The air-filled appendix is of normal caliber (axial series, images 185 through 203). Vasculature: Calcified atherosclerotic disease within the abdominal aorta, without aneurysmal dilatation. Lymph nodes: Limited evaluation without intravenous contrast. Pelvic structures: The bladder is distended, and otherwise unremarkable. The prostate gland is not enlarged Body wall and musculoskeletal: No umbilical hernia. No inguinal hernia. Age-appropriate degenerative disease within the lower thoracic and lumbosacral spines. IMPRESSION: No significant change in the chest, abdomen or pelvis from previous examination dated 08/02/2024 with the exception of increase in size of an indeterminate focus of increased attenuation within segment 8 of the liver, possibly a regenerative nodule. Nonacute findings include: Nonobstructing 2 mm calculus within the interpolar region of the left kidney. Colonic diverticulosis spanning from the hepatic flexure to the rectum without surrounding inflammato ry change. Splenomegaly. Bilateral upper lobe scar formation, consistent with patient's history. Reviewed, dictated and finalized at location A. IMPRESSION: No significant change in the chest, abdomen or pelvis from previous examination dated 08/02/2024 with the exception of increase in size of an indeterminate foc us of increased attenuation within segment 8 of the liver, possibly a regenerat emily nodule. Nonacute findings include: Nonobstructing 2 mm calculus within the interpolar region of the left kidney. Colonic diverticulosis spanning from the hepatic flexure to the rectum without surrounding inflammatory change. Splenomegaly. Bilateral upper lobe scar formation, consistent with patient's history.
--- NOTE | ~2024-11-18 | XR_ITS ---
CHEST RADIOGRAPH CLINICAL HISTORY: shortness of breath . COMPARISON: 08/26/2024 TECHNIQUE: Single portable view of the chest. FINDINGS The cardiomediastinal silhouette is unremarkable. Redemonstration of platelike atelectasis within the left mid to upper lung field, unchanged from prio r. Trace scarring is also noted within the right upper lung jimenez, also unchanged. The remainder the lungs are clear. IMPRESSION: Bilateral upper lobe scarring (as detailed above) without focal infiltrate. Reviewed, dictated and finalized at location A.
--- NOTE | 2024-11-18 13:29 | ECG_ITS ---
Test Date: 2024-11-18 14:18:07 Measurements Intervals [place] Rate: 67 P: 34 AL: 148 QRS: 35 QRSD: 129 T: 41 QT: 424 QTc: 449 Interpretive Statements SINUS RHYTHM RIGHT BUNDLE BRANCH BLOCK ABNORMAL ECG Compared to ECG 07/15/2024 15:33:13 No significant changes Electronically Signed On 11-18-2024 14:49:52 CDT by Lico Perez D.O.
--- NOTE | 2024-11-18 13:30 | ED_ITS ---
HPI - Recheck/Abnormal Lab/Rx General Chief Complaint: Recheck/Abnormal Lab/Rx <Carleyboby Owens APRN - Last Filed: 11/18/24 13:34> Stated Complaint: low iron and hgb, GI MD sent him <Carley Owens APRN - Last Filed: 11/18/24 13:34> Time Seen by Provider: 11/18/24 13:20 <Carley Owens APRN - Last Filed: 11/18/24 13:34> Focused HPI: Patient is an 79-year-old male who presents to the ER with increased shortness of breath and weakness. He reports he has ?nearly passed out multiple times recently. Patient has a history of lung cancer and CLL. He called his oncologist, Dr. Alex, but decided to come into the ER for further evaluation. Patient reports his last outpatient hemoglobin was around 8. He reports he has had an upper GI study where they found a bleed, but they fixed it.Patient reports he has not had a colonoscopy recently. He also endorses a history of CLL, rheumatoid arthritis, diabetes and COPD. Patient is on 2 L nasal cannula at baseline. He also endorses a history of chronic left lower quadrant abdominal pain and a current headache. GENERAL: Ill-appearing, well-nourished, and in no acute distress. HEAD: Normocephalic, atraumatic. CHEST: Diminished to auscultation. Mild respiratory distress. HEART: Tachycardia.? Pallor. NEURO: ?Alert and oriented x3. Patient screened in triage and initial orders placed.? ?Additional care and disposition to be based upon?diagnostic testing and treatment. <Carley Owens APRN - Last Filed: 11/18/24 13:34> History of Present Illness HPI narrative: 79-year-old male presenting with weakness and shortness of breath. Patient says that symptoms have been progressively worse over last 2-3 weeks. He is dizzy when he stands. He is more weak than usual. He has had to use his oxygen at almost all times due to shortness of breath. Patient notes that he has had chronic diarrhea since July but his lease bout has been going on for the last 4-5 weeks. He is denying fevers chills chest pain nausea or vomiting. He does have pain in the left lower quadrant which is ?chronic. Patient was advised to come in by his GI physician as he was not feeling well. < Segun Correia MD - Last Filed: 11/18/24 18:22> Related Data Home Medications: Home Medications ?Medication ?Instructions ?Recorded ?Confirmed ?Last Taken ?Type hydrocodone 10 mg-acetaminophen 1 tablet PO Q6H PRN Pain 02/21/20 10/13/24 10/12/24 History 325 mg tablet tamsulosin 0.4 mg capsule 0.4 mg PO QHS 08/01/20 10/13/24 10/12/24 History aspirin 81 mg tablet,delayed 81 mg PO DAILY 06/25/22 10/13/24 10/12/24 History release (Aspir-) magnesium 250 mg tablet 400 mg PO DAILY 06/25/22 10/13/24 10/12/24 History budesonide 160 mcg-glycopyr 9 2 inh inhalation BID 07/25/22 10/13/24 10/12/24 History mcg-formot 4.8 mcg/actuation HFA inhaler (Breztri Aerosphere) albuterol sulfate 90 mcg/actuation 2 puff inhalation Q4-6H PRN 03/12/23 10/04/24 Unknown History aerosol inhaler Shortness Of Breath oxygen-air delivery systems 04/10/23 09/14/24 Unknown History hydroxychloroquine 200 mg tablet 200 mg PO DAILY 06/23/23 10/13/24 10/12/24 History celecoxib 200 mg capsule 200 mg PO DAILY 10/27/23 10/13/24 10/12/24 History leflunomide 20 mg tablet 20 mg PO DAILY 07/15/24 10/04/24 07/15/24 08:00 History 20 mg metformin 500 mg tablet 500 mg PO BID 10/04/24 10/13/24 10/12/24 History omeprazole 40 mg capsule,delayed 40 mg PO DAILY 10/04/24 10/13/24 10/12/24 History release prednisone 10 mg tablet 10 mg PO QID 10/04/24 10/13/24 10/12/24 History <Carley Owens, KENYON - Last Filed: 11/18/24 13:34> Allergies/Adverse Reactions: Allergies Allergy/AdvReac Type Severity Reaction Status Date / Time Iodinated Contrast Media Allergy Severe Hives Verified 11/18/24 12:50 infliximab (From Remicade) AdvReac Intermediate Rash Verified 11/18/24 12:50 <Carley Owens, [employer]PECT[employer] - Last Filed: 11/18/24 13:34> [facility] Past Medical History Medical History: Medical History (Updated 11/18/24 @ 18:22 by Segun Correia MD) Anemia Black stool 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 BMI 35.0-35.9,adult Colon polyp Lung cancer Influenza A COVID-19 Shingles Kidney stones GERD (gastroesophageal reflux disease) History of rectal polyps Gastrointestinal ulcer Diverticulitis Diverticulosis Emphysema of lung Cataracts, bilateral Obesity Hypercholesterolemia Benign essential hypertension Benign prostatic hyperplasia with lower urinary tract symptoms Chronic low back pain Chronic obstructive pulmonary disease, unspecified Elevated LFTs Follicular lymphoma grade II, unspecified site Lung nodule Mixed hyperlipidemia Obstructive sleep apnea (adult) (pediatric) Rheumatoid arthritis involving multiple sites Splenomegaly <Carley Owens, [employer]PECT[employer] - Last Filed: 11/18/24 13:34> Surgical History Surgical History: Surgical History Hx of cholecystectomy History of right knee joint replacement Hx of cataract surgery History of back surgery <Carley Owens, INSPECT[employer] - Last Filed: 11/18/24 13:34> Family History Family History: Family History Mother Family history of osteoarthritis Family history of congestive heart failure, Onset Age: 90 Family history of malignant neoplasm of breast in first degree relative Sibling Carcinoma of colon, Onset Age: 66 Family history of lupus erythematosus, Onset Age: 21 Family history of primary malignant neoplasm of liver Father Acute myocardial infarction Hypertension, Onset Age: 68 Family history of cardiovascular disease, Onset Age: 68 <Carley Owens APRN - Last Filed: 11/18/24 13:34> Social History Social History: Social History Smoking packs per day: 2 Smoking cigarettes per day: 40.0 Years smoked: 50 Smoking pack-years: 100.00 Smoking status: Former smoker Tobacco type: cigarettes Second hand tobacco smoke exposure: No Smoking end date: 07/07/99 Alcohol intake: never Substance use: never Substance use type: does not use Do You Feel Safe in your Home?: Yes Lack of Transportation: YES Lack of Food: Never True Current Housing: I Have Housing Concerned About Future Housing: No Difficulty Paying Gas/Electric Bills: No Difficulty Paying for Meds: No Currently Unemployed: No Education: High School Diploma/GED Difficulty w/ Childcare or Family Care: No Living arrangements: with family Occupation/Education: retired 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 Gender identity (if verbalized by the patient): Male Sexual Orientation (if Verbalized by the Patient): Straight or Heterosexual Spiritual care concerns: No Agree to blood products: Yes <Carley Owens APRN - Last Filed: 11/18/24 13:34> Exam 2 Narrative: APPEARANCE: No apparent distress. Pale Head: atraumatic. EYES: EOMI, NOSE: Atraumatic NECK: Trachea midline RESPIRATORY: No increased rate of breathing CTAB CARDIOVASCULAR: Tachycardic, no peripheral edema ABDOMINAL: Left lower quadrant tenderness -per patient this is chronic, rest of the abdomen is soft nontender no guarding rebound MUSCULOSKELETAl: No obvious deformities NEURO: Alert. Moving 4/4 extremities SKIN:: Warm, dry. Normal color PSYCHIATRIC: Normal affect <Segun Correia MD - Last Filed: 11/18/24 18:22> Course Vital Signs Vital signs: Vital Signs Temperature 97.9 F 11/18/24 12:46 Pulse Rate 112 H 11/18/24 12:46 Respiratory Rate 28 H 11/18/24 12:46 Blood Pressure 91/56 L 11/18/24 12:46 Pulse Oximetry 97 11/18/24 12:46 Oxygen Delivery Nasal Cannula 11/18/24 12:46 Oxygen Flow Rate 2 11/18/24 12:46 Temperature 97.9 F 11/18/24 12:46 Pulse Rate 73 11/18/24 15:30 Respiratory Rate 16 11/18/24 15:30 Blood Pressure 135/58 L 11/18/24 15:30 Pulse Oximetry 100 11/18/24 15:30 Oxygen Delivery Nasal Cannula 11/18/24 12:46 Oxygen Flow Rate 2 11/18/24 12:46 <Carley Owens APRN - Last Filed: 11/18/24 13:34> Vital Signs Temperature 97.9 F 11/18/24 12:46 Pulse Rate 112 H 11/18/24 12:46 Respiratory Rate 28 H 11/18/24 12:46 Blood Pressure 91/56 L 11/18/24 12:46 Pulse Oximetry 97 11/18/24 12:46 Oxygen Delivery Nasal Cannula 11/18/24 12:46 Oxygen Flow Rate 2 11/18/24 12:46 Temperature 97.9 F 11/18/24 12:46 Pulse Rate 73 11/18/24 15:30 Respiratory Rate 16 11/18/24 15:30 Blood Pressure 135/58 L 11/18/24 15:30 Pulse Oximetry 100 11/18/24 15:30 Oxygen Delivery Nasal Cannula 11/18/24 12:46 Oxygen Flow Rate 2 11/18/24 12:46 <Segun Correia MD - Last Filed: 11/18/24 18:22> MDM - Recheck/Abnormal Lab/Rx MDM Narrative Medical decision making narrative: -Course: 79-year-old male presenting to ED for weakness and shortness of breath. On arrival blood pressure is soft he is tachycardic and tachypneic. Sepsis protocol ordered. Patient given 30 cc/kilogram bolus and started on cefepime/vanco while completing his workup. CT chest abdomen pelvis did not reveal an acute cause of his symptoms. Laboratory studies significant for a initial lactic of 3.8 which only clear to 3.0 after fluid resuscitation. White count 10.1. Hemoglobin 8.7 which is consistent with his levels over the last several months. Hemoglobin needs to be rechecked after fluid resuscitation as I expect it to drop. Kidney function at baseline. After 30 cc/kilogram bolus the patient's vital signs have normalized. His infectious workup has been negative although we are still awaiting blood cultures. Patient's abnormal vital signs and elevated lactic may be due to dehydration from his diarrhea although infection is not completely ruled out at this point. Case was discussed with the patient his family in the family are very concerned about anemia and him getting a blood transfusion. I explained to them that he we will continue to monitor his hemoglobin. Patient will be admitted to the hospital for further management. -DDX includes but is not limited to: Dehydration, sepsis, bacteremia, pneumonia, UTI, anemia <Segun Correia MD - Last Filed: 11/18/24 18:22> Lab Data Result diagrams: 11/18/24 13:44 11/18/24 13:44 <Carley Owens APRN - Last Filed: 11/18/24 13:34> Labs: Lab Results 11/18/24 11/18/24 11/18/24 Range/Units 13:44 15:13 15:54 WBC 10.1 H (4.5-10.0) K/mm3 RBC 3.73 L (4.6-6.20) M/mm3 Hgb 8.7 L (14.0-18.0) g/dL Hct 29.7 L (42.0-52.0) % MCV 79.6 L (80-100) fl MCH 23.3 L (26-34) pg MCHC 29.3 L (32-36) g/dl RDW 16.9 H (11.5-14.5) % Plt Count 210 (150-375) k/mm3 MPV 10.4 (7.4-10.4) fl Immature Gran % (Auto) 1.0 H (0-0.5) % Neut % (Auto) 83.8 H (45.5-73.1) % Lymph % (Auto) 7.7 L (18.3-44.2) % [place] % (Auto) 6.6 (2.6-8.5) % Eos % (Auto) 0.4 (0-4.4) % Baso % (Auto) 0.5 (0.2-1.2) % Lymph # (Auto) 0.78 L (0.9-3.2) K/mm3 [place] # (Auto) 0.7 H (0.1-0.6) K/mm3 Eos # (Auto) 0.0 (0-0.3) K/mm3 Baso # (Auto) 0.1 (0.0-0.1) K/mm3 Abs Immat Gran (auto) 0.10 H (0.00-0.031) K/mm3 Absolute Neuts (auto) 8.5 H (1.3-6.7) K/mm3 Absolute Nucleated RBC 0.000 (0.0-0.012) K/mm3 Band Neutrophils % Not Reportable Nucleated RBC % 0.0 (0.0-0.2) % Platelet Estimate Adequate (Adequate) Hypochromasia 1+ Ovalocytes 1+ Schistocytes None seen PT 14.4 (11.1-14.7) Seconds INR 1.1 APTT 29.4 (22.3-36.8) Seconds Sodium 135 L (137-145) mmol/L Potassium 4.5 (3.4-5.0) mmol/L Chloride 104 (98-107) mmol/L Carbon Dioxide 22 (22-30) mmol/L Anion Gap 9 (4-12) mmol/L BUN 21 H (9-20) mg/dL Creatinine 1.83 H (0.7-1.3) mg/dL Estim Creat Clear Calc 32 ml/min Estimated GFR 36 L (59 - ) Glucose 118 H (65-110) mg/dL Lactic Acid 3.8 H (0.7-2.0) mmol/L Calcium 9.3 (8.4-10.2) mg/dL Total Bilirubin 0.4 (0.2-1.3) mg/dL AST 55 (17-59) U/L ALT 40 (6-50) U/L Alkaline Phosphatase 190 H (38-126) U/L C-Reactive Protein 0.6 (<1.0) mg/dL NT-Pro-B Natriuret Pep 109 H (19.9-100) pg/mL Total Protein 6.7 (6.3-8.2) g/dL Albumin 3.6 (3.5-5.1) g/dL Urine Color (Yellow) Urine Appearance (Clear) Urine pH (5.0-9.0) Ur Specific Gary (1.001-1.035) Urine Protein (Negative) mg/dL Urine Glucose (UA) (Negative) mg/dL Urine Ketones (Negative) mg/dL Ur Blood (Man) (Negative) Urine Nitrate (Negative) Urine Bilirubin (Negative) Urine Urobilinogen (<2.0) mg/dL Leukocyte Esterase Rfl (Negative) CRISSY/UL Nasal MRSA (PCR) Not detected (NOT DETECTE) Influenza A (RT-PCR) Negative (Negative) Influenza B (RT-PCR) Negative (Negative) RSV (RT-PCR) Negative (Negative) SARS-CoV-2 RNA (RT-PCR) Negative (Negative) 11/18/24 11/18/24 Range/Units 16:47 17:18 WBC (4.5-10.0) K/mm3 RBC (4.6-6.20) M/mm3 Hgb (14.0-18.0) g/dL Hct (42.0-52.0) % MCV (80-100) fl MCH (26-34) pg MCHC (32-36) g/dl RDW (11.5-14.5) % Plt Count (150-375) k/mm3 MPV (7.4-10.4) fl Immature Gran % (Auto) (0-0.5) % Neut % (Auto) (45.5-73.1) % Lymph % (Auto) (18.3-44.2) % [place] % (Auto) (2.6-8.5) % Eos % (Auto) (0-4.4) % Baso % (Auto) (0.2-1.2) % Lymph # (Auto) (0.9-3.2) K/mm3 [place] # (Auto) (0.1-0.6) K/mm3 Eos # (Auto) (0-0.3) K/mm3 Baso # (Auto) (0.0-0.1) K/mm3 Abs Immat Gran (auto) (0.00-0.031) K/mm3 Absolute Neuts (auto) (1.3-6.7) K/mm3 Absolute Nucleated RBC (0.0-0.012) K/mm3 Band Neutrophils % Nucleated RBC % (0.0-0.2) % Platelet Estimate (Adequate) Hypochromasia Ovalocytes Schistocytes PT (11.1-14.7) Seconds INR APTT (22.3-36.8) Seconds Sodium (137-145) mmol/L Potassium (3.4-5.0) mmol/L Chloride (98-107) mmol/L Carbon Dioxide (22-30) mmol/L Anion Gap (4-12) mmol/L BUN (9-20) mg/dL Creatinine (0.7-1.3) mg/dL Estim Creat Clear Calc ml/min Estimated GFR (59 - ) Glucose (65-110) mg/dL Lactic Acid 3.0 H (0.7-2.0) mmol/L Calcium (8.4-10.2) mg/dL Total Bilirubin (0.2-1.3) mg/dL AST (17-59) U/L ALT (6-50) U/L Alkaline Phosphatase (38-126) U/L C-Reactive Protein (<1.0) mg/dL NT-Pro-B Natriuret Pep (19.9-100) pg/mL Total Protein (6.3-8.2) g/dL Albumin (3.5-5.1) g/dL Urine Color Yellow (Yellow) Urine Appearance Clear (Clear) Urine pH 6.0 (5.0-9.0) Ur Specific Gary 1.018 (1.001-1.035) Urine Protein Negative (Negative) mg/dL Urine Glucose (UA) Negative (Negative) mg/dL Urine Ketones Negative (Negative) mg/dL Ur Blood (Man) Negative (Negative) Urine Nitrate Negative (Negative) Urine Bilirubin Negative (Negative) Urine Urobilinogen 1.0 (<2.0) mg/dL Leukocyte Esterase Rfl Negative (Negative) CRISSY/UL Nasal MRSA (PCR) (NOT DETECTE) Influenza A (RT-PCR) (Negative) Influenza B (RT-PCR) (Negative) RSV (RT-PCR) (Negative) SARS-CoV-2 RNA (RT-PCR) (Negative) <Carley Owens, INSPECT[employer] - Last Filed: 11/18/24 13:34> Lab Results 11/18/24 11/18/24 11/18/24 Range/Units 13:44 15:13 15:54 WBC 10.1 H (4.5-10.0) K/mm3 RBC 3.73 L (4.6-6.20) M/mm3 Hgb 8.7 L (14.0-18.0) g/dL Hct 29.7 L (42.0-52.0) % MCV 79.6 L (80-100) fl MCH 23.3 L (26-34) pg MCHC 29.3 L (32-36) g/dl RDW 16.9 H (11.5-14.5) % Plt Count 210 (150-375) k/mm3 MPV 10.4 (7.4-10.4) fl Immature Gran % (Auto) 1.0 H (0-0.5) % Neut % (Auto) 83.8 H (45.5-73.1) % Lymph % (Auto) 7.7 L (18.3-44.2) % [place] % (Auto) 6.6 (2.6-8.5) % Eos % (Auto) 0.4 (0-4.4) % Baso % (Auto) 0.5 (0.2-1.2) % Lymph # (Auto) 0.78 L (0.9-3.2) K/mm3 [place] # (Auto) 0.7 H (0.1-0.6) K/mm3 Eos # (Auto) 0.0 (0-0.3) K/mm3 Baso # (Auto) 0.1 (0.0-0.1) K/mm3 Abs Immat Gran (auto) 0.10 H (0.00-0.031) K/mm3 Absolute Neuts (auto) 8.5 H (1.3-6.7) K/mm3 Absolute Nucleated RBC 0.000 (0.0-0.012) K/mm3 Band Neutrophils % Not Reportable Nucleated RBC % 0.0 (0.0-0.2) % Platelet Estimate Adequate (Adequate) Hypochromasia 1+ Ovalocytes 1+ Schistocytes None seen PT 14.4 (11.1-14.7) Seconds INR 1.1 APTT 29.4 (22.3-36.8) Seconds Sodium 135 L (137-145) mmol/L Potassium 4.5 (3.4-5.0) mmol/L Chloride 104 (98-107) mmol/L Carbon Dioxide 22 (22-30) mmol/L Anion Gap 9 (4-12) mmol/L BUN 21 H (9-20) mg/dL Creatinine 1.83 H (0.7-1.3) mg/dL Estim Creat Clear Calc 32 ml/min Estimated GFR 36 L (59 - ) Glucose 118 H (65-110) mg/dL Lactic Acid 3.8 H (0.7-2.0) mmol/L Calcium 9.3 (8.4-10.2) mg/dL Total Bilirubin 0.4 (0.2-1.3) mg/dL AST 55 (17-59) U/L ALT 40 (6-50) U/L Alkaline Phosphatase 190 H (38-126) U/L C-Reactive Protein 0.6 (<1.0) mg/dL NT-Pro-B Natriuret Pep 109 H (19.9-100) pg/mL Total Protein 6.7 (6.3-8.2) g/dL Albumin 3.6 (3.5-5.1) g/dL Urine Color (Yellow) Urine Appearance (Clear) Urine pH (5.0-9.0) Ur Specific Gary (1.001-1.035) Urine Protein (Negative) mg/dL Urine Glucose (UA) (Negative) mg/dL Urine Ketones (Negative) mg/dL Ur Blood (Man) (Negative) Urine Nitrate (Negative) Urine Bilirubin (Negative) Urine Urobilinogen (<2.0) mg/dL Leukocyte Esterase Rfl (Negative) CRISSY/UL Nasal MRSA (PCR) Not detected (NOT DETECTE) Influenza A (RT-PCR) Negative (Negative) Influenza B (RT-PCR) Negative (Negative) RSV (RT-PCR) Negative (Negative) SARS-CoV-2 RNA (RT-PCR) Negative (Negative) 11/18/24 11/18/24 Range/Units 16:47 17:18 WBC (4.5-10.0) K/mm3 RBC (4.6-6.20) M/mm3 Hgb (14.0-18.0) g/dL Hct (42.0-52.0) % MCV (80-100) fl MCH (26-34) pg MCHC (32-36) g/dl RDW (11.5-14.5) % Plt Count (150-375) k/mm3 MPV (7.4-10.4) fl Immature Gran % (Auto) (0-0.5) % Neut % (Auto) (45.5-73.1) % Lymph % (Auto) (18.3-44.2) % [place] % (Auto) (2.6-8.5) % Eos % (Auto) (0-4.4) % Baso % (Auto) (0.2-1.2) % Lymph # (Auto) (0.9-3.2) K/mm3 [place] # (Auto) (0.1-0.6) K/mm3 Eos # (Auto) (0-0.3) K/mm3 Baso # (Auto) (0.0-0.1) K/mm3 Abs Immat Gran (auto) (0.00-0.031) K/mm3 Absolute Neuts (auto) (1.3-6.7) K/mm3 Absolute Nucleated RBC (0.0-0.012) K/mm3 Band Neutrophils % Nucleated RBC % (0.0-0.2) % Platelet Estimate (Adequate) Hypochromasia Ovalocytes Schistocytes PT (11.1-14.7) Seconds INR APTT (22.3-36.8) Seconds Sodium (137-145) mmol/L Potassium (3.4-5.0) mmol/L Chloride (98-107) mmol/L Carbon Dioxide (22-30) mmol/L Anion Gap (4-12) mmol/L BUN (9-20) mg/dL Creatinine (0.7-1.3) mg/dL Estim Creat Clear Calc ml/min Estimated GFR (59 - ) Glucose (65-110) mg/dL Lactic Acid 3.0 H (0.7-2.0) mmol/L Calcium (8.4-10.2) mg/dL Total Bilirubin (0.2-1.3) mg/dL AST (17-59) U/L ALT (6-50) U/L Alkaline Phosphatase (38-126) U/L C-Reactive Protein (<1.0) mg/dL NT-Pro-B Natriuret Pep (19.9-100) pg/mL Total Protein (6.3-8.2) g/dL Albumin (3.5-5.1) g/dL Urine Color Yellow (Yellow) Urine Appearance Clear (Clear) Urine pH 6.0 (5.0-9.0) Ur Specific Gary 1.018 (1.001-1.035) Urine Protein Negative (Negative) mg/dL Urine Glucose (UA) Negative (Negative) mg/dL Urine Ketones Negative (Negative) mg/dL Ur Blood (Man) Negative (Negative) Urine Nitrate Negative (Negative) Urine Bilirubin Negative (Negative) Urine Urobilinogen 1.0 (<2.0) mg/dL Leukocyte Esterase Rfl Negative (Negative) CRISSY/UL Nasal MRSA (PCR) (NOT DETECTE) Influenza A (RT-PCR) (Negative) Influenza B (RT-PCR) (Negative) RSV (RT-PCR) (Negative) SARS-CoV-2 RNA (RT-PCR) (Negative) <Segun Correia MD - Last Filed: 11/18/24 18:22> Critical Care Time Critical Care Time Critical Care Time: Yes <Segun Correia MD - Last Filed: 11/18/24 18:22> Total Critical Care Time: 35 <Segun oCrreia MD - Last Filed: 11/18/24 18:22> Discharge Plan Discharge Clinical Impression: Elevated lactic acid level, Diarrhea, Weakness, Anemia, Chronic hypoxemic respiratory failure, Dehydration <Carley Owens APRN - Last Filed: 11/18/24 13:34> Patient Disposition: Still a Patient <Carley Owens APRN - Last Filed: 11/18/24 13:34> Condition: Stable <Carley Owens APRN - Last Filed: 11/18/24 13:34> Patient Language: Armenian <Carley Owens APRN - Last Filed: 11/18/24 13:34> Prescriptions: No Action amoxicillin 875 mg tablet 875 mg PO Q12H Qty: 20 0RF cholestyramine (with sugar) [Questran] 4 gram powder in packet 4 g PO BID Qty: 60 3RF Rx Instructions: administer w/meal; avoid other meds within 1hr before or 4-6hr after dose hydrocodone-acetaminophen 10-325 mg tablet 1 tablet PO Q6H PRN (Reason: Pain) tamsulosin 0.4 mg capsule 0.4 mg PO QHS aspirin [Aspir-81] 81 mg tablet,delayed release (DR/EC) 81 mg PO DAILY (DME) oxygen-air delivery systems Device See Rx Instructions .Route Patient Comments: pt states he is on 2 liters every night. Rx Instructions: As directed hyoscyamine sulfate 0.125 mg tablet,disintegrating 0.125 mg PO QID PRN (Reason: esophageal spasms) Qty: 45 0RF azelastine 137 mcg (0.1 %) aerosol,spray 137 mcg intranasal Q12H Qty: 30 5RF Rx Instructions: administer into each nostril hydroxychloroquine 200 mg tablet 200 mg PO DAILY fluticasone propionate 50 mcg/actuation spray,suspension See Rx Instructions .ROUTE .COMPLEX Qty: 48 3RF Dose Instruction: USE 2 SPRAYS IN EACH NOSTRIL DAILY NEEDED FOR CONGESTION Rx Instructions: USE 2 SPRAYS IN EACH NOSTRIL DAILY NEEDED FOR CONGESTION magnesium 250 mg tablet 400 mg PO DAILY Breztri Aerosphere 160-9-4.8 mcg/actuation Hfa Aerosol Inhaler 2 inh INHALATION BID albuterol sulfate 90 mcg/actuation HFA aerosol inhaler 2 puff INHALATION Q4-6H PRN (Reason: Shortness Of Breath) celecoxib 200 mg capsule 200 mg PO DAILY leflunomide 20 mg tablet 20 mg PO DAILY prednisone 10 mg tablet 10 mg PO QID metformin 500 mg tablet 500 mg PO BID Rx Instructions: TAKE 2 TABLETS EVERY DAY omeprazole 40 mg capsule,delayed release(DR/EC) 40 mg PO DAILY (DME) blood-glucose meter [Accu-Chek Guide Glucose Meter] Misc See Rx Instructions .Route Qty: 1 0RF Rx Instructions: test 2 times a day. (DME) lancets [Accu-Chek Multiclix Lancet] Misc See Rx Instructions .Route Qty: 200 1RF Rx Instructions: test 2 times a day (DME) Accu-Chek Guide test strips Strip See Rx Instructions .Route Qty: 100 2RF Rx Instructions: test 2 time a day trazodone 50 mg tablet See Rx Instructions .ROUTE .COMPLEX Qty: 270 1RF Dose Instruction: TAKE 3 TABLETS AT BEDTIME NEEDED FOR SLEEP Rx Instructions: TAKE 3 TABLETS AT BEDTIME NEEDED FOR SLEEP triamterene-hydrochlorothiazid 37.5-25 mg tablet 1 tablet PO QAM Qty: 90 1RF pravastatin 20 mg tablet 20 mg PO HS Qty: 90 1RF Rx Instructions: TAKE 1 TABLET AT BEDTIME famotidine 20 mg tablet See Rx Instructions .ROUTE .COMPLEX Qty: 90 3RF Dose Instruction: TAKE 1 TABLET EVERY DAY Rx Instructions: TAKE 1 TABLET EVERY DAY diltiazem HCl 240 mg capsule,extended release 24hr See Rx Instructions .ROUTE .COMPLEX Qty: 90 3RF Dose Instruction: TAKE 1 CAPSULE EVERY DAY Rx Instructions: TAKE 1 CAPSULE EVERY DAY <Carley Owens, [employer] - Last Filed: 11/18/24 13:34> Follow-up/Referrals: Dre Zavaleta, [Primary Care Provider] - <Carley Owens APRN - Last Filed: 11/18/24 13:34>
[2024-11-18 14:03] LABS: Hematocrit 29.7 % (42.0-52.0); Hemoglobin 8.7 g/dL (14.0-18.0); Immature Granulocyte Percent A 1.0 % (0-0.5); Lymphocytes Absolute Auto 0.78 K/mm3 (0.9-3.2); Mean Corpuscular HGB Conc 29.3 g/dl (32-36); Mean Corpuscular Hemoglobin 23.3 pg (26-34); Mean Corpuscular Volume 79.6 fl (80-100); Nucleated Red Blood Cells Absolute Auto 0.000 K/mm3 (0.0-0.012); Nucleated Red Blood Cells Perc 0.0 % (0.0-0.2); Platelet Count Result 210 k/mm3 (150-375); Red Blood Count 3.73 M/mm3 (4.6-6.20); White Blood Count 10.1 K/mm3 (4.5-10.0)
[2024-11-18 14:19] LABS: INR 1.1; Prothrombin Time 14.4 Seconds (11.1-14.7)
[2024-11-18 14:20] LABS: Hypochromasia 1+; Ovalocytes 1+; Partial Thromboplastin Time 29.4 Seconds (22.3-36.8); Schistocytes None Seen
[2024-11-18 14:26] LABS: Alanine Aminotransferase 40 U/L (6-50); Albumin Level 3.6 g/dL (3.5-5.1); Alkaline Phosphatase 190 U/L (38-126); Anion Gap 9 mmol/L (4-12); Aspartate Amino Transferase 55 U/L (17-59); Bilirubin,Total 0.4 mg/dL (0.2-1.3); Blood Urea Nitrogen 21 mg/dL (9-20); CRP 0.6 mg/dL (<1.0); Calcium 9.3 mg/dL (8.4-10.2); Carbon Dioxide 22 mmol/L (22-30); Chloride 104 mmol/L (98-107); Estimated CRCL calculation 32 ml/min; Estimated Glomerular Filt Rate 36; Glucose 118 mg/dL (65-110); Potassium 4.5 mmol/L (3.4-5.0); Sodium 135 mmol/L (137-145); Total Protein 6.7 g/dL (6.3-8.2)
[2024-11-18 14:31] LABS: NT Pro B Type Natriuretic Pept 109 pg/mL (19.9-100)
--- OUTSIDE RECORDS SUMMARY | 2024-11-18 14:33 | XMS_ITS | Encounter Summary ---
Author Organization [facility] Address [address] [place] [address] Care Team Providers Care Print Producer Name Role Phone Julius Encinas MD Primary Care Provider [phone] Valeriy Lawson MD Unavailable [phone] Encounter Details Date Type Department Care Team (Late st Contact Info) Description 04/13/2014 Therapy [facility] Unknown, Provider Social History Tobacco Use Types Packs/Day Years Used Date Smoking Tobacco: Former Cigarettes 0 09/20/1992 - 09/20/2000 Smokeless Tobacco: Never Comments:unk date and mon Alcohol Use Standard Drinks/Week Comments No 0 (1 standard drink = 0.6 oz pur e alcohol) Sex and Gender Information Value Date Recorded Sex Assigned at Not on file Legal Sex Male 4:21 AM [employer] Gender Identity Not on file Sexual Orientation Not on file documented as of this encounter Plan of Treatment Not on file documented as of this encounter Visit Diagnoses Not on filedocumented in this encounter Care Teams Print Producer Relationship Specialty Start Date End Date Julius Encinas MD [address] [place] [address] PCP - General 06/10/08 Valeriy Lawson MD [address] [place] [address] 11/13/09 documented as of this encounter
--- OUTSIDE RECORDS SUMMARY | 2024-11-18 14:33 | XMS_ITS | Encounter Summary ---
Author Organization [facility] Health Address [address] [place] [address] Care Team Providers Care Sign Letterer Name Role Phone Julius Encinas MD Primary Care Provider [phone] Valeriy Lawson MD Unavailable [phone] Encounter Details Date Type Department Care Team (Late st Contact Info) Description 05/04/2013 [facility] Outpatient Visit EXTERNAL NON-[facility] DEPT Valeriy Lawson MD [address] [place] [address] Social History Tobacco Use Types Packs/Day Years Used Date Smoking Tobacco: Former Cigarettes 0 09/20/1992 - 09/20/2000 Smokeless Tobacco: Never Comments:unk date and mon Alcohol Use Standard Drinks/Week Comments No 0 (1 standard drink = 0.6 oz pur e alcohol) Sex and Gender Information Value Date Recorded Sex Assigned at Not on file 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
--- OUTSIDE RECORDS SUMMARY | 2024-11-18 14:33 | XMS_ITS ---
Author Organization [facility] Address [address] [place] [address] Care Team Providers Care Transit Clerk Name Role Phone Zia Mercedes MD Unavailable [phone] Arpit Han MD PhD Unavailable [phone] Zia Mercedes MD Unavailable [phone] Harvey Alex MD Unavailable [phone] Dre Zavaleta DO Primary Care Provider [phone] Active Problems Problem Noted Date Diagnosed Date [...] on chronic respiratory failure with hypoxi a ([facility]) 06/04/2020 Assessment & Plan (08/09/2021 1:50 PM [...] 06/04/2020 Assessment & Plan (06/04/2020 6:00 PM NET DEVELOPER CONTRACT): Mild elevation of AST and ALT most likely due to acute infection. Will monitor while on remdesivir. Respiratory alkalosis 06/04/2020 Assessment & Plan (06/04/2020 6:01 PM NET DEVELOPER CONTRACT): Due to hyperventilation from hypoxia on admission. Monitor respiratory function with supplemental oxygen. Chronic obstructive pulmonar y disease with acute exacerbation ([facility]) 06/04/2020 Assessment & Plan (08/09/2021 1:52 PM CDT): Patient on prednisone, symbicort, and albuterol prn at home. - continue home meds - Mucinex DM and Tessalon perles added for cough Assessment & Plan (08/09/2021 1:35 AM CDT): Continue breathing treatments Assessment & Plan (06/04/2020 6:02 PM NET DEVELOPER CONTRACT): Mild COPD exacerbation due to COVID-19, breath sounds diminished with mild end expiratory wheezing and a cough productive of small amounts of yellow sputum. Continue steroids for COVID-19 along with home Symbicort and albuterol p.r.n. COVID-19 05/29/2020 Assessment & Plan (06/04/2020 6:04 PM NET DEVELOPER CONTRACT): Shortness of breath worsened since initial diagnosis [...] 05/29/2020 Assessment & Plan (06/04/2020 5:59 PM NET DEVELOPER CONTRACT): Unable to obtain CTA chest because of allergy to IV contrast, but symptoms are not suggestive of acute the and D-dimer is very slightly above the threshold for normal. Will treat with Lovenox at half therapeutic dose because of COVID-19. Rheumatoid arthritis involvi ng multiple sites with positive rheumatoid factor ([facility]) 05/29/2020 Assessment & Plan (08/09/2021 1:49 PM CDT): Holding Plaquenil and Celebrex. Continue prednisone daily. Assessment & Plan (08/09/2021 1:33 AM CDT): Holding Plaquenil. Continue prednisone daily. Assessment & Plan (06/04/2020 5:57 PM NET DEVELOPER CONTRACT): Continue home RA regimen, will need to [...] ordered Assessment & Plan (06/04/2020 5:58 PM NET DEVELOPER CONTRACT): Uses CPAP at home, but does not [...]
--- OUTSIDE RECORDS SUMMARY | 2024-11-18 14:33 | XMS_ITS | Encounter Summary ---
Author Organization [facility] Health Address [address] [address] Care Team Providers Care Gambling Box Person Name Role Phone Julius Encinas MD Primary Care Provider [phone] Valeriy Lawson MD Unavailable [phone] Encounter Details Date Type Department Care Team (Late st Contact Info) Description 09/23/2013 [facility] Outpatient Visit EXTERNAL NON-[facility] DEPT Valeriy Lawson MD [address] [place] [address] Social History Tobacco Use Types Packs/Day Years Used Date Smoking Tobacco: Former Cigarettes 0 09/20/1992 - 09/20/2000 Smokeless Tobacco: Never Comments:unk date and mon Alcohol Use Standard Drinks/Week Comments No 0 (1 standard drink = 0.6 oz pur e alcohol) Sex and Gender Information Value Date Recorded Sex Assigned at Not on file 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
--- OUTSIDE RECORDS SUMMARY | 2024-11-18 14:33 | XMS_ITS | Encounter Summary ---
Author Organization [facility] Address [address] [place] [address] Care Team Providers Care Woodwinds Teacher Name Role Phone Dre Zavaleta DO Primary Care Provider [phone] Reason for Visit * Reason Onset Date Comments Lab Questions 11/17/2024 Encounter Details Date Type Department Care Team (Late st Contact Info) Description 11/17/2024 Telephone [facility] Oncology and Hematology - [place] [address] [facility] [address] [place] [address] Harvey Aelx MD [address] [facility] [address] [place] [address] Lab Questions Social History Tobacco Use Types Packs/Day Years Used Date Smoking Tobacco: Former Cigarettes 2 40 1 738 - 6042 Alcohol Use Standard Drinks/Week Comments Yes 0 (1 standard drink = 0.6 oz pur e alcohol) Sex and Gender Information Value Date Recorded Sex Assigned at Not on file Legal Sex Male 10:35 AM XEROX MACHINE OPERATOR Gender Identity Not on file Sexual Orientation Not on file documented as of this encounter Miscellaneous Notes * Telephone Encounter - Vilma Ignacio - 11/17/2024 2:35 PM CDT Patient called because he says that he had labs done at [place] and that he wanted to know if we could see the results. He states that he is feeling more tired, and that he is using his oxygen more.He said that his hemoglobin has dropped to 8.0. I let him know that whoever ordered the labs would need to fax us the results and we could go from there on if we needed to see him sooner then his next follow up appointment. He verbalized understanding with no further questions at this time. documented in this encounter Plan of Treatment Upcoming Encounters Date Type Department Care Team (Late st Contact Info) Description 02/14/2025 10:15 AM XEROX MACHINE OPERATOR Office Visit [facility] Oncology and Hematology [facility] [address] [facility] [address] [place] [address] Harvey Alex MD [address] [facility] [address] [place] [address] documented as of this encounter Visit Diagnoses Not on filedocumented in this encounter Care Teams Woodwinds Teacher Relationship Specialty Start Date End Date Dre Zavaleta DO [address] [facility] [address] [place] [address] PCP - General Internal Medicine 08/11/24 documented as of this encounter
--- OUTSIDE RECORDS SUMMARY | 2024-11-18 14:33 | XMS_ITS | Encounter Summary ---
Author Organization [facility] Address [address] [facility] [place] [address] Care Team Providers Care Chemical Equipment Sales Engineer Name Role Phone Julius Encinas MD Primary Care Provider [phone] Valeriy Lawson MD Unavailable [phone] Encounter Details Date Type Department Care Team (Late st Contact Info) Description 08/24/2010 [facility] Outpatient Visit [facility] Medical Group - Family Medicine [address] [place] [address] Valeriy Lawson MD [address] [place], [place] [id number] Social History Tobacco Use Types Packs/Day Years Used Date Smoking Tobacco: Former Cigarettes 0 09/20/1992 - 09/20/2000 Smokeless Tobacco: Never Comments:unk date and mon Alcohol Use Standard Drinks/Week Comments No 0 (1 standard drink = 0.6 oz pur e alcohol) Sex and Gender Information Value Date Recorded Sex Assigned at Not on file 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
--- OUTSIDE RECORDS SUMMARY | 2024-11-18 14:33 | XMS_ITS | Encounter Summary ---
Author Organization [facility] Health Address [address] [place] [address] Care Team Providers Care Chemical Technician Name Role Phone Julius Enicnas MD Primary Care Provider [phone] Valeriy Lawson MD Unavailable [phone] Encounter Details Date Type Department Care Team (Late st Contact Info) Description 02/10/2014 [facility] Outpatient Visit EXTERNAL NON-[facility] DEPT Valeriy Lawson MD [address] [address] Social History Tobacco Use Types Packs/Day Years Used Date Smoking Tobacco: Former Cigarettes 0 09/20/1992 - 09/20/2000 Smokeless Tobacco: Never Comments:unk date and mon Alcohol Use Standard Drinks/Week Comments No 0 (1 standard drink = 0.6 oz pur e alcohol) Sex and Gender Information Value Date Recorded Sex Assigned at Not on file Legal Sex Male 4:21 AM HAT MENDER Gender Identity Not on file Sexual Orientation Not on file documented as of this encounter Plan of Treatment Not on file documented as of this encounter Visit Diagnoses Not on filedocumented in this encounter Care Teams Chemical Technician Relationship Specialty Start Date End Date Julius Encinas MD [address] [place] [address] PCP - General 06/10/08 Valeriy Lawson MD [address] [place] [address] 11/13/09 documented as of this encounter
--- OUTSIDE RECORDS SUMMARY | 2024-11-18 14:33 | XMS_ITS | Clinical Summary ---
Author Organization [facility] Address [address] [place] [address] Care Team Providers Care Chief Arson Division Name Role Phone Unavailable Primary Care Provider [...]
--- OUTSIDE RECORDS SUMMARY | 2024-11-18 14:33 | XMS_ITS | Clinical Summary ---
Author Organization [facility] Address [address] [place] [address] Care Team Providers Care Claim Investigator Name Role Phone Zia Mercedes MD Unavailable [phone] Arpit patton MD PhD Unavailable [phone] Zia Mercedes MD Unavailable [phone] Harvey Alex MD Unavailable [phone] Dre Zavaleta DO Primary Care Provider [phone] Allergies Active Allergy Reactions Criticality Noted Date [...] failure with hypoxi a ([facility]) 06/04/2020 Assessment & Plan (08/09/2021 1:50 PM [...] 06/04/2020 Assessment & Plan (06/04/2020 6:00 PM BALLER TENDER): Mild elevation of AST and ALT most likely due to acute infection. Will monitor while on remdesivir. Respiratory alkalosis 06/04/2020 Assessment & Plan (06/04/2020 6:01 PM BALLER TENDER): Due to hyperventilation from hypoxia on admission. Monitor respiratory function with supplemental oxygen. Chronic obstructive pulmonar y disease with acute exacerbation ([facility]) 06/04/2020 Assessment & Plan (08/09/2021 1:52 PM CDT): Patient on prednisone, symbicort, and albuterol prn at home. - continue home meds - Mucinex DM and Tessalon perles added for cough Assessment & Plan (08/09/2021 1:35 AM CDT): Continue breathing treatments Assessment & Plan (06/04/2020 6:02 PM BALLER TENDER): Mild COPD exacerbation due to COVID-19, breath sounds diminished with mild end expiratory wheezing and a cough productive of small amounts of yellow sputum. Continue steroids for COVID-19 along with home Symbicort and albuterol p.r.n. COVID-19 05/29/2020 Assessment & Plan (06/04/2020 6:04 PM BALLER TENDER): Shortness of breath worsened since initial [...] 05/29/2020 Assessment & Plan (06/04/2020 5:59 PM BALLER TENDER): Unable to obtain CTA chest because of allergy to IV contrast, but symptoms are not suggestive of acute the and D-dimer is very slightly above the threshold for normal. Will treat with Lovenox at half therapeutic dose because of COVID-19. Rheumatoid arthritis involvi ng multiple sites with positive rheumatoid factor ([facility]) 05/29/2020 Assessment & Plan (08/09/2021 1:49 PM CDT): Holding Plaquenil and Celebrex. Continue prednisone daily. Assessment & Plan (08/09/2021 1:33 AM CDT): Holding Plaquenil. Continue prednisone daily. Assessment & Plan (06/04/2020 5:57 PM BALLER TENDER): Continue home RA regimen, will need [...] ordered Assessment & Plan (06/04/2020 5:58 PM BALLER TENDER): Uses CPAP at home, but does [...] CDT - 08/21/2024 8:[address] [facility] Emergency Department [address] [place] [address] Aaron Grimaldo MD Dark stools (Primary Dx); [...] on file Legal Sex Male 1:51 AM BALLER TENDER Gender Identity Not on file Sexual [...] minimal pain. Medical Devices Implanted Type Area Beer Brewer Device Identifier Shelf Expiration Date Model / [...] CDT HEMOGLOBIN A1C Add-On 06/12/2020 11:07 AM BALLER TENDER from Last 3 Months or Most [...] LAB BLOOD ORDERABLES Final Re sult [facility] [address] [place] [address] * XR Chest 1 Vw [...] LAB BLOOD ORDERABLES Final Re sult [facility] [address] [place] [address] * Urinalysis reflex to microscopic and culture [...] tendency for uric acid stone formation. Source: [facility] Current Interpretive Data was last [...] for microscopic UA and culture not met. [facility] Urine 08/21/2024 4:00 PM CDT 08/21/2024 4:12 PM CDT Aaron Grimaldo MD LAB MICROBIOLOGY - GENERAL ORDERABLES Final Result Performing Organization Address [facility] Co de Phone Number [address] Department [place] [address] * (ABNORMAL) Troponin T high-sensitivity [...] BLOOD ORDERABLES Final Result Performing Organization Address [facility] Co de Phone Number [address] Department of [facility] [place], [place] [id number] * (ABNORMAL) eGFR (08/21/2024 1:41 PM CDT) [facility] eGFR 31(L) >=60 mL/min/1. 73 m2 [...] CAREY LAB BLOOD ORDERABLES Final Re sult [facility] [address] [place] [address] * (ABNORMAL) Differential, auto (08/21/2024 1:41 PM CDT) Pathologist [facility] Neutrophil abs 5.79 1.50 - 6.50 K/cumm Imm gran abs 0.08 0.00 - 0.10 K/cumm [facility] Lymphocyte abs 0.54(L) 0.80 - 3.30 K/cumm [facility] Monocyte abs 0.91(H) 0.20 - 0.80 K/cumm [facility] Eosinophil abs 0.23 0.00 - 0.50 K/cumm [facility] Basophil abs 0.04 0.00 - 0.10 K/cumm [facility] Neutrophil pct 76.3 % [facility] Comment: Interpretive Data Percent cell count reference ranges are not reported, since discordance with absolute values may lead to misinterpretation of CBC data. Current Interpretive Data was last revised on 2017. Imm gran pct 1.1 % [facility] Comment: Interpretive Data Percent cell count reference [...] revised on 2017. Basophil pct 0.5 % [facility] Comment: Interpretive Data Percent cell count reference ranges are not reported, since discordance with absolute values may lead to misinterpretation of CBC data. Current Interpretive Data was last revised on 2017. Blood 08/21/2024 1:41 PM CDT 08/21/2024 1:41 PM CDT us Laura CAREY LAB BLOOD ORDERABLES Final Re sult [facility] [address] [place] [address] * (ABNORMAL) CBC with auto differential (08/21/2024 1:41 PM CDT) WBC 7.59 3.80 - 9.90 K/cumm Hgb 10.2(L) 13.0 - 17.5 g/dL [facility] Hct 33.0(L) 38.9 - 50.3 % [facility] Plt 157 150 - 400 K/cumm [facility] MPV 10.7 9.1 - 12.3 fL [facility] RBC 4.14(L) 4.30 - 5.80 M/cumm [...] BLOOD ORDERABLES Final Result Performing Organization Address [facility] Co de Phone Number [facility] [address] Department [place] [address] * Lipase (08/21/2024 1:41 PM CDT) [facility] Lipase 54 10 - 99 Units/L Blood Venous blood specimen / Unknown 08/21/2024 1:41 PM CDT 08/21/2024 1:41 PM CDT Aaron Grimaldo MD LAB BLOOD ORDERABLES Final Result Performing Organization Address [facility] de Phone Number [facility] [address] Department [place] [address] * (ABNORMAL) Comprehensive metabolic panel (08/21/2024 1:41 PM CDT) Pathologist [facility] Sodium 135 135 - 145 mmol/L Potassium, pl 3.8 3.3 - 4.9 mmol/L [facility] Chloride 102 97 - 110 mmol/L [facility] CH CO2 21(L) 22 - 32 mmol/L [facility] Anion gap 12 2 - 15 mmol/L [facility] BUN 27(H) 6 - 25 mg/dL [...] Grimaldo MD LAB BLOOD ORDERABLES Final Result [facility] [address] [place] [address] * ECG 12 lead (08/21/2024 12:58 PM CDT) 08/21/2024 12:5 8 PM CDT Narrative [facility] - 08/21/2024 7:10 PM CDT Vent Rate: 103 bpm RR Interval: 581 msec SC Interval: 139 msec QRS Duration: 130 msec QT Interval: 337 msec QTC Interval: 396 msec P-R-T [place]: 15 - 31 - 16 degrees IMPRESSION: SINUS TACHYCARDIA INDETERMINATE AXIS RIGHT BUNDLE BRANCH BLOCK [120+ ms QRS DURATION, UPRIGHT V1, 40+ ms S IN I/aVL/V4/V5/V6] ABNORMAL ECG NO CHANGE FROM PREVIOUS TRACING NOTED Electronically Signed By: Duglas Lares MD Aaron Grimaldo MD ECG ORDERABLES Final Resu lt [facility] * CT Chest Abdomen Pelvis WO Contrast (01/21/2023 11:07 AM CDT) Anatomical Region Laterality Modality Body N/A Computed Tomogra phy Arpit Han MD PhD IMG CT PROCEDURES Prudence l Result * (ABNORMAL) Hemoglobin A1c (06/12/2020 11:07 AM BALLER TENDER) Hgb A1C 7.1(H) 4.0 - 5.6 % [facility] [address] Estimated Average Glucose 157 mg/dL [facility] [address] Comment: The ADA recommends reporting an estimated Average Glucose (eAG) with all Hemoglobin A1c results using the equation derived from a study of 507 normal and diabetic adults. Minority populations were underrepresented and children were not included. (Diabetes Care 31:2799-7384, 2008). The eAG is not equivalent to a fasting glucose. Blood specimen (specimen) 06/12/2020 11:07 AM BALLER TENDER 06/12/2020 11:07 AM BALLER TENDER Radha Vail MD LAB BLOOD ORDERABLES Final Res ult Performing Organization Address City/[facility]/ZIP Co de Phone Number [facility] [address] [place] [address] from Last 3 Months or Most Recently Relevant to Health Maintenance Insurance MEDICARE [facility] MEDICARE BLUE CROSS MEDICARE SUPPLEMENT MEDICARE [facility] MEDICARE SUPPLEMENT Advance Directives For more information, please contact: [phone] * Full Code (Latest Code Status on [...] 12:19 PM 03/03/2018 4:40 PM Care Teams Claim Investigator Relationship Specialty Start Date End Date Dre Zavaleta DO [address] [facility] [address] [place] [address] PCP - General Internal Medicine 01/14/24 [place] [address] [address] Consulting Physician Pulmonary Disease 06/25/20 Arpit Han MD PhD [address] [place] [address] Radiation Oncologist Radiation Oncology 10/04/21 [place] [address] [address] Referring Physician Pulmonary Disease 10/04/21 Harvey Alex MD [address] [address] Referring Physician Hematology 02/01/22
--- OUTSIDE RECORDS SUMMARY | 2024-11-18 14:33 | XMS_ITS | Clinical Summary ---
Author Organization [facility] Address [address] [place] [place] [address] Care Team Providers Care Stock Blender Name Role Phone Julius Encinas MD Primary Care Provider [phone] Valeriy Lawson MD Unavailable [phone] Source Comments [facility],non-owned Affiliates and Associated Physician Practices is amultiple site organization consisting of ambulatory clinics and hospital sitesin [place], [place], [place] and [place]. This disclosure is being madepursuant to the Care Everywhere program and may not contain all information available regarding this patient. Last updated 17.[facility] Allergies Active Allergy Reactions Criticality [...] VITAMINS PO Take by mouth daily. 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 MECHANIC Gender Identity Not on file Sexual Orientation [...] age to complete this topic Insurance [facility] Address: [place] [address] MEDICARE ANTHEM Member Subscriber Plan / Payer (Ef fective for All Dates) Name:Dilan Weaver [place] Relation to Subscriber:Self Name:Dilan Weaver Payer ID:[id number] (NAIC) Type:Commercial Address: [place] [id number] SELF PAY NO INSURANCE Member Subscriber Plan / Payer (Ef fective for All Dates) Name:Meg Dilan E Member ID:Not on file Relation to Subscriber:Not on file Name:MEGDILAN Subscriber ID:Not on file (Home) Address: [address] [place] [id number] Payer ID:Not on file Group ID:Not on file Type:Self Pay Address: [place], [place] [facility] MEDICARE [facility] Care Teams Stock Blender Relationship Specialty Start Date End Date Julius Encinas MD [address] [place] [address] PCP - General 06/10/08 Valeriy Lawson MD [address] [place] [address] 11/13/09
--- OUTSIDE RECORDS SUMMARY | 2024-11-18 14:33 | XMS_ITS | Encounter Summary ---
Author Organization [facility] Address [address] [place] [address] Care Team Providers Care Aircraft Navigator Name Role Phone Julius Encinas MD Primary Care Provider [phone] Valeriy Lawson MD Unavailable [phone] Encounter Details Date Type Department Care Team (Late st Contact Info) Description 02/11/2014 Therapy Visit EXTERNAL [facility] Valeriy Lawson MD [address] [place] [id number] Social History Tobacco Use Types Packs/Day Years Used Date Smoking Tobacco: Former Cigarettes 0 09/20/1992 - 09/20/2000 Smokeless Tobacco: Never Comments:unk date and mon Alcohol Use Standard Drinks/Week Comments No 0 (1 standard drink = 0.6 oz pur e alcohol) Sex and Gender Information Value Date Recorded Sex Assigned at Not on file Legal 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
--- OUTSIDE RECORDS SUMMARY | 2024-11-18 14:33 | XMS_ITS | Clinical Summary ---
Author Organization [facility] Address [address] [place] [address] Care Team Providers Care Professor Of Chemistry Name Role Phone Dre Zavaleta DO Primary Care Provider Allergies Active Allergy Reactions Criticality Noted Date [...] take 0.5 tablet PO daily 1 Active [place]-3 Fatty Acids 1,000 mg Capsule Take 1,000 [...] H. Active fluticasone propionate (FLONASE) 50 mcg/spray [place], Suspension nasal inhaler Administer 2 Sprays in [...] Encounters Date Type Department Care Team Description 11/17/2024 Telephone [facility] Oncology and Hematology - [place] [address] [place] [id number] Harvey Alex MD Lab Questions 09/21/2024 External Device Data STL ABSTRACTION Provider, [...] Smoking Tobacco: Former Cigarettes 2 [phone] Tobacco Cessation:Counseling Given: Not Answered Alcohol Use Standard Drinks/Week Comments Yes 0 (1 standard drink = 0.6 oz pur e alcohol) Sex and Gender Information Value Date Recorded Sex Assigned at Not on file Legal Sex Male 10:35 AM CLAIMS ACCOUNT SPECIALIST Gender Identity Not on file Sexual [...] st Contact Info) Description 02/14/2025 10:15 AM CLAIMS ACCOUNT SPECIALIST Office Visit [facility] Oncology and Hematology [facility] [address] [place] [id number] Harvey Alex MD [address] [facility] [address] [place] [id number] Health Maintenance Due Date Last Done Comments DIABETES ANNUAL FOOT EXAM 1962 DIABETES MICROALBUMIN ANNUAL SCREEN 1962 LDL CHOLESTEROL ANNUAL 1962 DTAP/TDAP/TD VACCINES (1 - Tdap) 08/04/1963 PNEUMOCOCCAL VACCINE 50+ YEA RS (1 of 2 - PCV) 08/04/1963 Traditional Medicare (ACO) A nnual Wellness Visit 08/04/1963 ZOSTER VACCINE (1 of 2) 08/04/1963 [...] Discontinued Insurance MEDICARE PART A AND B BCBS SUPP MEDICARE PART A AND B [facility] SUPP Care Teams Professor Of Chemistry Relationship Specialty Start Date End Date Dre Zavaleta DO [address] [facility] [address] [place] [address] PCP - General Internal Medicine 08/11/24
[2024-11-18] MEDS: CEFEPIME 2 GM in SODIUM CHLORIDE 0.9% IV 50 ML 100 ML IVPB (14:53)
[2024-11-18] MEDS: LACTATED RINGERS 1,000 ML 999 ML IV CONT ×2 (14:57→15:00)
[2024-11-18] MEDS: LACTATED RINGERS 800 ML 999 ML IV CONT (15:05)
[2024-11-18] MEDS: VANCOMYCIN 1,250 MG/NS 250 ML 1,250 MG/250 ML BAG 166.67 MG IVPB (15:46)
[2024-11-18 16:28] LABS: MRSA (PCR) NOT DETECTED (NOT DETECTE)
[2024-11-18 16:35] LABS: Influenza A QL RT-PCR Negative (Negative); Influenza B QL RT-PCR Negative (Negative); RSV RNA, RT-PCR Negative (Negative); SARS-CoV-2 RNA PCR Negative (Negative)
[2024-11-18 16:59] LABS: Add Urine Microscopic? NO; Appearance Urine Clear (Clear); Glucose Urine UA Negative (Negative); Leukocyte Esterase Ur Negative LEU/UL (Negative); Nitrate Urine Negative (Negative); Specific Grav Ur 1.018 (1.001-1.035)
[2024-11-18] MEDS: VANCOMYCIN HCL 1,000 MG in SODIUM CHLORIDE 0.9% IV 250 ML 250 MG IVPB (17:22)
--- NOTE | 2024-11-18 17:29 | PC.NURSE ---
Dr Correia at bedside speaking with patient/ and daughter
--- NOTE | 2024-11-18 21:49 | P.HP_ITS ---
H&P: HPI History of Present Illness Date/Time: 11/18/24 21:49 Chief Complaint: Shortness of breath and low hemoglobin Narrative: 79-year-old male with a past medical history of previously treated lung cancer, CLL, COPD, GERD, chronic kidney disease, BPH and essential hypertension who presented to the ER due to shortness of breath and low hemoglobin on outpatient labs. The patient reports that he is on 1 L of oxygen at rest all the time and 2 L with activity. He also wears a CPAP at night. He reports that he has been having some episodes of lightheadedness with position changes that have been ongoing for some time but worsening over the last several weeks. He reports he is always short of breath with exertion but denies any chest pain. His shortness of breath is slightly worse than at baseline. He denies any lower extremity pain. He has not noticed any hematochezia or melena. He has been having increased loose stools over the last 4-5 weeks but states that today he was actually having trouble and had to strain to go to the bathroom once he arrived at the hospital. He denies any hematochezia or melena. He has not had any cough or congestion. He denies any recent ill contacts. He has not noticed any hematuria. Review of Systems 2 Review of Systems: 12 systems were reviewed with pertinent positives and negatives per HPI. Except as documented in the HPI, all other systems were reviewed and are negative. 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 Colon polyp Lung cancer Shingles Kidney stones GERD (gastroesophageal reflux disease) History of rectal polyps Gastrointestinal ulcer Diverticulosis Emphysema of lung Cataracts, bilateral Obesity Benign essential hypertension Benign prostatic hyperplasia with lower urinary tract symptoms Chronic low back pain Chronic obstructive pulmonary disease, unspecified Elevated LFTs Follicular lymphoma grade II, unspecified site Lung nodule Mixed hyperlipidemia Obstructive sleep apnea (adult) (pediatric) Rheumatoid arthritis involving multiple sites Splenomegaly Surgical History Surgical History Hx of cholecystectomy History of right knee joint replacement Hx of cataract surgery History of back surgery Family History Family History Mother Family history of osteoarthritis Family history of congestive heart failure, Onset Age: 90 Family history of malignant neoplasm of breast in first degree relative Sibling Carcinoma of colon, Onset Age: 66 Family history of lupus erythematosus, Onset Age: 21 Family history of primary malignant neoplasm of liver Father Acute myocardial infarction Hypertension, Onset Age: 68 Family history of cardiovascular disease, Onset Age: 68 Social History Social History (Updated 11/18/24 @ 21:58 by Bernadette Ann DO) Social History: Code status: Full code Healthcare power of commercial real estate attorney: Dora Cuadra (daughter) Smoking packs per day: 2 Smoking cigarettes per day: 40.0 Years smoked: 50 Smoking pack-years: 100.00 Smoking status: Former smoker Tobacco type: cigarettes Second hand tobacco smoke exposure: No Smoking end date: 07/07/99 Alcohol intake: current Substance use: never Substance use type: does not use Do You Feel Safe in your Home?: Yes Lack of Transportation: No Lack of Food: Never True Current Housing: I Have Housing Concerned About Future Housing: No Difficulty Paying Gas/Electric Bills: No Difficulty Paying for Meds: No Currently Unemployed: No Education: Grade School Difficulty w/ Childcare or Family Care: No Living arrangements: with family Occupation/Education: retired 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 Gender identity (if verbalized by the patient): Male Sexual Orientation (if Verbalized by the Patient): Straight or Heterosexual Spiritual care concerns: No Agree to blood products: Yes Meds Home Medications and Allergies Home Medications ?Medication ?Instructions ?Recorded ?Confirmed ?Type hydrocodone 10 mg-acetaminophen 1 tablet PO Q6H PRN Pain 02/21/20 11/18/24 History 325 mg tablet tamsulosin 0.4 mg capsule 0.4 mg PO QHS 08/01/20 11/18/24 History blood-glucose meter (Accu-Chek #1 ea 08/04/20 11/18/24 Rx Guide Glucose Meter) lancets (Accu-Chek Multiclix #200 ea 08/04/20 11/18/24 Rx Lancet) blood sugar diagnostic (Accu-Chek #100 ea 11/06/20 11/18/24 Rx Guide test strips) aspirin 81 mg tablet,delayed 81 mg PO DAILY 06/25/22 11/18/24 History release (Aspir-) albuterol sulfate 90 mcg/actuation 2 puff inhalation Q4-6H PRN 03/12/23 11/18/24 History aerosol inhaler Shortness Of Breath oxygen-air delivery systems 04/10/23 11/18/24 History hydroxychloroquine 200 mg tablet 200 mg PO DAILY 06/23/23 11/18/24 History celecoxib 200 mg capsule 200 mg PO DAILY 10/27/23 11/18/24 History fluticasone propionate 50 See Rx Instructions .Route 04/28/24 11/18/24 Rx mcg/actuation nasal .COMPLEX #48 grams spray,suspension pravastatin 20 mg tablet 20 mg PO HS #90 tabs 06/28/24 11/18/24 Rx triamterene 37.5 1 tablet PO QAM #90 tabs 06/28/24 11/18/24 Rx mg-hydrochlorothiazide 25 mg tablet diltiazem HCl 240 mg See Rx Instructions .Route 09/29/24 11/18/24 Rx capsule,extended release 24 hr .COMPLEX #90 caps famotidine 20 mg tablet See Rx Instructions .Route 09/29/24 11/18/24 Rx .COMPLEX #90 tabs metformin 500 mg tablet 500 mg PO BID 10/04/24 11/18/24 History omeprazole 40 mg capsule,delayed 40 mg PO DAILY 10/04/24 11/18/24 History release prednisone 10 mg tablet 10 mg PO DAILY 10/04/24 11/18/24 History cholestyramine (with sugar) 4 gram 4 g PO BID PRN diarrhea 11/18/24 11/18/24 History powder for susp in a packet (Questran) magnesium 200 mg tablet 400 mg PO DAILY 11/18/24 11/18/24 History trazodone 50 mg tablet 100 mg PO HS PRN insomnia 11/18/24 11/18/24 History Allergies Allergy/AdvReac Type Severity Reaction Status Date / Time Iodinated Contrast Media Allergy Severe Hives Verified 11/18/24 12:50 infliximab (From Remicade) AdvReac Intermediate Rash Verified 11/18/24 12:50 Vital Signs Vital Signs - 24 hr 11/18/24 12:46 11/18/24 13:45 11/18/24 14:30 Temperature 97.9 F Pulse Rate 112 H 68 68 Respiratory Rate 28 H 15 17 Blood Pressure 91/56 L 123/60 108/48 L Pulse Oximetry 97 100 100 Oxygen Delivery Nasal Cannula Oxygen Flow Rate 2 11/18/24 15:30 11/18/24 16:00 11/18/24 16:45 Temperature Pulse Rate 73 68 75 Respiratory Rate 16 15 21 H Blood Pressure 135/58 L 127/57 L 130/69 Pulse Oximetry 100 100 99 Oxygen Delivery Oxygen Flow Rate 11/18/24 17:30 11/18/24 18:15 11/18/24 19:27 Temperature Pulse Rate 72 71 Respiratory Rate 16 15 Blood Pressure 154/60 H 125/45 L 143/100 H Pulse Oximetry 100 99 Oxygen Delivery Oxygen Flow Rate 11/18/24 20:15 11/18/24 21:04 Temperature 97.8 F Pulse Rate 87 Respiratory Rate 24 H Blood Pressure 117/78 Pulse Oximetry 97 100 Oxygen Delivery Nasal Cannula Oxygen Flow Rate 2 Exam 2 Narrative: Weight 96.1 kg BMI 33.2 Const: Other: Obese, no acute distress, appears stated age HENMT: Other: CPAP in place, mucous membranes are dry, no oral pharyngeal erythema, edentulous in upper and lower jaw Eyes: Other: Bilateral lens implants noted, positive conjunctival pallor, no scleral icterus, pupils are equal and reactive Neck: Other: Large neck circumference, no JVD, no lymphadenopathy Resp: Other: Decreased breath sounds bilaterally, no increased work of breathing Cardio: Other: Regular rate, regular rhythm, 2+ bilateral radial pedal pulses, no JVD GI: Other: Obese, soft, nontender, normoactive bowel sounds Skin: Other: Mild pallor, non jaundice Neuro: Other: Alert oriented x3, speech is clear, no facial asymmetry Extrem: Other: No clubbing, cyanosis or edema Psych: Other: Appropriate mood and affect, pleasant and cooperative, judgment and insight fair H&P: Results Labs Labs: Laboratory Tests 11/18/24 13:44 11/18/24 13:44 11/18/24 11/18/24 11/18/24 13:44 15:13 15:54 WBC 10.1 H RBC 3.73 L Hgb 8.7 L Hct 29.7 L MCV 79.6 L MCH 23.3 L MCHC 29.3 L RDW 16.9 H Plt Count 210 MPV 10.4 Immature Gran % (Auto) 1.0 H Neut % (Auto) 83.8 H Lymph % (Auto) 7.7 L [place] % (Auto) 6.6 Eos % (Auto) 0.4 Baso % (Auto) 0.5 Lymph # (Auto) 0.78 L [place] # (Auto) 0.7 H Eos # (Auto) 0.0 Baso # (Auto) 0.1 Abs Immat Gran (auto) 0.10 H Absolute Neuts (auto) 8.5 H Absolute Nucleated RBC 0.000 Band Neutrophils % Not Reportable Nucleated RBC % 0.0 Platelet Estimate Adequate Hypochromasia 1+ Ovalocytes 1+ Schistocytes None seen PT 14.4 INR 1.1 APTT 29.4 Sodium 135 L Potassium 4.5 Chloride 104 Carbon Dioxide 22 Anion Gap 9 BUN 21 H Creatinine 1.83 H Estim Creat Clear Calc 32 Estimated GFR 36 L Glucose 118 H Lactic Acid 3.8 H Calcium 9.3 Total Bilirubin 0.4 AST 55 ALT 40 Alkaline Phosphatase 190 H C-Reactive Protein 0.6 NT-Pro-B Natriuret Pep 109 H Total Protein 6.7 Albumin 3.6 Urine Color Urine Appearance Urine pH Ur Specific [place] Urine Protein Urine Glucose (UA) Urine Ketones Ur Blood (Man) Urine Nitrate Urine Bilirubin Urine Urobilinogen Leukocyte Esterase Rfl Nasal MRSA (PCR) Not detected Influenza A (RT-PCR) Negative Influenza B (RT-PCR) Negative RSV (RT-PCR) Negative SARS-CoV-2 RNA (RT-PCR) Negative 11/18/24 11/18/24 16:47 17:18 WBC RBC Hgb Hct MCV MCH MCHC RDW Plt Count MPV Immature Gran % (Auto) Neut % (Auto) Lymph % (Auto) [place] % (Auto) Eos % (Auto) Baso % (Auto) Lymph # (Auto) [place] # (Auto) Eos # (Auto) Baso # (Auto) Abs Immat Gran (auto) Absolute Neuts (auto) Absolute Nucleated RBC Band Neutrophils % Nucleated RBC % Platelet Estimate Hypochromasia Ovalocytes Schistocytes PT INR APTT Sodium Potassium Chloride Carbon Dioxide Anion Gap BUN Creatinine Estim Creat Clear Calc Estimated GFR Glucose Lactic Acid 3.0 H Calcium Total Bilirubin AST ALT Alkaline Phosphatase C-Reactive Protein NT-Pro-B Natriuret Pep Total Protein Albumin Urine Color Yellow Urine Appearance Clear Urine pH 6.0 Ur Specific [place] 1.018 Urine Protein Negative Urine Glucose (UA) Negative Urine Ketones Negative Ur Blood (Man) Negative Urine Nitrate Negative Urine Bilirubin Negative Urine Urobilinogen 1.0 Leukocyte Esterase Rfl Negative Nasal MRSA (PCR) Influenza A (RT-PCR) Influenza B (RT-PCR) RSV (RT-PCR) SARS-CoV-2 RNA (RT-PCR) Impressions Chest X-Ray 11/18/24 14:28 IMPRESSION: Bilateral upper lobe scarring (as detailed above) without focal infiltrate. Chest/Abdomen/Pelvis CT 11/18/24 14:54 IMPRESSION: No significant change in the chest, abdomen or pelvis from previous examination dated 08/02/2024 with the exception of increase in size of an indeterminate focus of increased attenuation within segment 8 of the liver, possibly a regenerative nodule. Nonacute findings include: Nonobstructing 2 mm calculus within the interpolar region of the left kidney. Colonic diverticulosis spanning from the hepatic flexure to the rectum without surrounding inflammatory change. Splenomegaly. Bilateral upper lobe scar formation, consistent with patient's history. All imaging and EKGs personally reviewed and interpreted. And unless stated otherwise agree with radiologic and cardiology interpretation. 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: Code(s): K58.2 - Mixed irritable bowel syndrome Status: Acute (6) Diarrhea: Qualifiers: Diarrhea type: unspecified type Qualified Code(s): R19.7 - Diarrhea, unspecified Code(s): R19.7 - Diarrhea, unspecified Status: Acute (7) Chronic kidney disease, stage 3b: Code(s): N18.32 - Chronic kidney disease, stage 3b Status: Acute (8) Benign essential hypertension: Code(s): I10 - Essential (primary) hypertension Status: Acute (9) Chronic hypoxemic respiratory failure: Code(s): J96.11 - Chronic respiratory failure with hypoxia Status: Acute (10) Rheumatoid arthritis: Qualifiers: Rheumatoid arthritis location: multiple sites Rheumatoid factor presence: with rheumatoid factor Qualified Code(s): M05.79 - Rheumatoid arthritis with rheumatoid factor of multiple sites without organ or systems involvement Code(s): M06.9 - Rheumatoid arthritis, unspecified Status: Acute (11) Type 2 diabetes mellitus: Qualifiers: Diabetes mellitus complication status: without complication Diabetes mellitus buttermaker continuous churn insulin use: without buttermaker continuous churn use Qualified Code(s): E11.9 - Type 2 diabetes mellitus without complications Code(s): E11.9 - Type 2 diabetes mellitus without complications Status: Acute Plan Patient presented with transient hypotension most likely due to hypovolemia in setting of mild acute on chronic anemia. Patient's anemia is likely due to his history of CLL with possible component GI losses given the is on chronic NSAID therapy with Celebrex. Will hold the patient's home Celebrex and repeat CBC in a.m.. I anticipate the patient hemoglobin to drop due to delusional factors that he did receive 30 mL/kilos fluid bolus of isotonic fluids. Will type and crossmatch patient in anticipation for likely need for blood transfusion. The patient did have some tachycardia and mild tachypnea on initial presentation to the ER but no white count or fever. I suspect patient's tachycardia was more due to volume depletion in likely due to infection. Patient did receive empiric antibiotic therapy with cefepime and vancomycin but no identifying couple source of infection was noted so antibiotics will be discontinued. The patient's imaging did demonstrate chronic changes in his lung consistent with scar formation. Will increase the patient's Protonix to 40 mg p.o. b.i.d.. Patient did have some lactic acidosis that was persistently elevated after fluid administration. I suspect patient's IV fluid boluses were not completed but had the patient's repeat lactic acid was drawn. Also the patient is on metformin and does have an indeterminate liver lesion as a could be adding a component to lactic acidosis. Will give the patient 1 more L IV fluids overnight and re- evaluate lactic acid in fluid status in a.m.. Will hold hydroxychloroquine into lactic acidosis has resolved and until anemia improves. Anemia could be also in part due to bone marrow suppression with hydroxychloroquine The patient does have history of diarrhea alternating with constipation. He reported that he had had 4-5 weeks of more persistent diarrhea but at the time my evaluation he stated that he had to strain to have a bowel movement today once he arrived to the medical floor. Will cancel C diff PCR and stool culture. Will still collect stool occult blood once patient produces stool specimen. Will hold patient's home Celebrex. Will continue patient's home famotidine in addition to Protonix. The patient's renal function remained stable. Will repeat electrolyte panel in a.m.. Patient does have type 2 diabetes mellitus will hold metformin while hospitalized specially in the setting of acute lactic acidosis. He is currently euglycemic. MEDICAL DECISION MAKING NARRATIVE -Spoke with the ED provider in detail regarding patient's evaluation, workup and management -Patient seen and examined at bedside -Collaborated with patient's nurse at the bedside in detail and addressed all concerns -Labs, electrolytes, radiology, investigations and test results reviewed -ED/Consult/Nursing/Ancilliary notes on the chart reviewed and appreciated -Spoke with patient at bedside all questions were answered. Patient is agreeable with plan. Quality VTE Prophylaxis VTE prophylaxis: mechanical ordered (SCDs) Hospitalist MIPS Advance Care Plan I have confirmed that the patient's Advanced Care Plan is present, code status is documented, or surrogate decision maker is listed in patient medical record.: Yes Medication Reconciliation I have utilized all available resources to obtain, update and review the patients current medications (includes all prescriptions, OTC, herbals, cannabis, and nutritional supplements).: Yes
[2024-11-19] VITALS (10 sets, daily range): BP systolic 120–156; BP diastolic 40–62; PULSE 63–74; RESP 16–18; TEMP 36.2–36.5; O2SAT 99–100; BMI 33.2
[2024-11-19] MEDS: HYDROcodone/acetaminophen (*CRX) 10-325 MG TABLET 1 TAB PO ×2 (00:07→16:28)
[2024-11-19 05:51] LABS: Hematocrit 23.9 % (42.0-52.0); Immature Granulocyte Percent A 1.2 % (0-0.5); Lymphocytes Absolute Auto 1.27 K/mm3 (0.9-3.2); Mean Corpuscular HGB Conc 28.0 g/dl (32-36); Mean Corpuscular Hemoglobin 22.9 pg (26-34); Mean Corpuscular Volume 81.8 fl (80-100); Nucleated Red Blood Cells Absolute Auto 0.000 K/mm3 (0.0-0.012); Nucleated Red Blood Cells Perc 0.0 % (0.0-0.2); Platelet Count Result 159 k/mm3 (150-375); Red Blood Count 2.92 M/mm3 (4.6-6.20); White Blood Count 8.2 K/mm3 (4.5-10.0)
[2024-11-19 05:57] LABS: Anion Gap 2 mmol/L (4-12); Blood Urea Nitrogen 21 mg/dL (9-20); Calcium 8.7 mg/dL (8.4-10.2); Carbon Dioxide 27 mmol/L (22-30); Chloride 107 mmol/L (98-107); Estimated CRCL calculation 34 ml/min; Estimated Glomerular Filt Rate 38; Glucose 88 mg/dL (65-110); Magnesium 1.8 mg/dL (1.6-2.3); Potassium 4.4 mmol/L (3.4-5.0); Sodium 136 mmol/L (137-145)
[2024-11-19 06:19] LABS: Hemoglobin 6.7 g/dL (14.0-18.0)
[2024-11-19] MEDS: FAMOTIDINE 20 MG TABLET PO (08:33)
[2024-11-19] MEDS: PANTOPRAZOLE 40 MG TABLET PO ×2 (08:33→20:30)
[2024-11-19] MEDS: ASPIRIN 81 MG ENTERIC TABLET PO (08:33)
[2024-11-19] MEDS: MAGNESIUM OXIDE 400 MG TABLET PO (08:34)
[2024-11-19] MEDS: SODIUM CHLORIDE 0.9% IV 250 ML 30 ML IV CONT (08:34)
[2024-11-19] MEDS: dilTIAZem HCL CD 240 MG CAP.24HR PO (08:34)
[2024-11-19] MEDS: ACETAMINOPHEN 325 MG TABLET 650 MG PO (11:18)
--- NOTE | 2024-11-19 13:56 | P.PNIM_ITS ---
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: Code(s): K58.2 - Mixed irritable bowel syndrome Status: Acute (6) Diarrhea: Qualifiers: Diarrhea type: unspecified type Qualified Code(s): R19.7 - Diarrhea, unspecified Code(s): R19.7 - Diarrhea, unspecified Status: Acute (7) Chronic kidney disease, stage 3b: Code(s): N18.32 - Chronic kidney disease, stage 3b Status: Acute (8) Benign essential hypertension: Code(s): I10 - Essential (primary) hypertension Status: Acute (9) Chronic hypoxemic respiratory failure: Code(s): J96.11 - Chronic respiratory failure with hypoxia Status: Acute (10) Rheumatoid arthritis: Qualifiers: Rheumatoid arthritis location: multiple sites Rheumatoid factor presence: with rheumatoid factor Qualified Code(s): M05.79 - Rheumatoid arthritis with rheumatoid factor of multiple sites without organ or systems involvement Code(s): M06.9 - Rheumatoid arthritis, unspecified Status: Acute (11) Type 2 diabetes mellitus: Qualifiers: Diabetes mellitus complication status: without complication Diabetes mellitus termite treater insulin use: without termite treater use Qualified Code(s): E11.9 - Type 2 diabetes mellitus without complications Code(s): E11.9 - Type 2 diabetes mellitus without complications Status: Acute Plan Patient presented with transient hypotension most likely due to hypovolemia in setting of mild acute on chronic anemia. Patient's anemia is likely due to his history of CLL with possible component GI losses given the is on chronic NSAID therapy with Celebrex. Will hold the patient's home Celebrex and repeat CBC in a.m.. I anticipate the patient hemoglobin to drop due to delusional factors that he did receive 30 mL/kilos fluid bolus of isotonic fluids. Will type and crossmatch patient in anticipation for likely need for blood transfusion. The patient did have some tachycardia and mild tachypnea on initial presentation to the ER but no white count or fever. I suspect patient's tachycardia was more due to volume depletion in likely due to infection. Patient did receive empiric antibiotic therapy with cefepime and vancomycin but no identifying couple source of infection was noted so antibiotics will be discontinued. The patient's imaging did demonstrate chronic changes in his lung consistent with scar formation. Will increase the patient's Protonix to 40 mg p.o. b.i.d.. Patient did have some lactic acidosis that was persistently elevated after fluid administration. I suspect patient's IV fluid boluses were not completed but had the patient's repeat lactic acid was drawn. Also the patient is on metformin and does have an indeterminate liver lesion as a could be adding a component to lactic acidosis. Will give the patient 1 more L IV fluids overnight and re- evaluate lactic acid in fluid status in a.m.. Will hold hydroxychloroquine into lactic acidosis has resolved and until anemia improves. Anemia could be also in part due to bone marrow suppression with hydroxychloroquine The patient does have history of diarrhea alternating with constipation. He reported that he had had 4-5 weeks of more persistent diarrhea but at the time my evaluation he stated that he had to strain to have a bowel movement today once he arrived to the medical floor. Will cancel C diff PCR and stool culture. Will still collect stool occult blood once patient produces stool specimen. Will hold patient's home Celebrex. Will continue patient's home famotidine in addition to Protonix. The patient's renal function remained stable. Will repeat electrolyte panel in a.m.. Patient does have type 2 diabetes mellitus will hold metformin while hospitalized specially in the setting of acute lactic acidosis. He is currently euglycemic. patient with history of lung CA, CLL, COPD, GERD and CKD presented with c/o shortness of breath, is found to have low hgb of 6.7, patient does not have any history of rectal bleeding, etiology is multifactorial, possible 2/2 CLL, CKD and or rectal bleeding ordered stool hemoccult. patient was given 1 unit PRBC, stats feels better, will consult his oncologist Dr. Alex for further evaluation and recommendation, will monitor. will have PT/OT evaluate the patient. Subjective Date/time seen: 11/19/24 13:56 Interval history: Shortness of breath and low hemoglobin Narrative: 79-year-old male with a past medical history of previously treated lung cancer, CLL, COPD, GERD, chronic kidney disease, BPH and essential hypertension who presented to the ER due to shortness of breath and low hemoglobin on outpatient labs. The patient reports that he is on 1 L of oxygen at rest all the time and 2 L with activity. He also wears a CPAP at night. He reports that he has been having some episodes of lightheadedness with position changes that have been ongoing for some time but worsening over the last several weeks. He reports he is always short of breath with exertion but denies any chest pain. His shortness of breath is slightly worse than at baseline. He denies any lower extremity pain. He has not noticed any hematochezia or melena. He has been having increased loose stools over the last 4-5 weeks but states that today he was actually having trouble and had to strain to go to the bathroom once he arrived at the hospital. He denies any hematochezia or melena. He has not had any cough or congestion. He denies any recent ill contacts. He has not noticed any hematuria. patient with history of lung CA, CLL, COPD, GERD and CKD presented with c/o shortness of breath, is found to have low hgb of 6.7, patient does not have any history of rectal bleeding, etiology is multifactorial, possible 2/2 CLL, CKD and or rectal bleeding ordered stool hemoccult. patient was given 1 unit PRBC, stats feels better, will consult his oncologist Dr. Alex for further evaluation and recommendation, will monitor. will have PT/OT evaluate the patient. Review of Systems Review of Systems: 12 systems were reviewed with pertinent positives and negatives per HPI. Except as documented in the HPI, all other systems were reviewed and are negative. 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 Exam Narrative: Patient is comfortable, NAD HEENT: eyes are clear and none icteric LUNGS:CTA HEART: RR S1S2 ABD: BS+, Soft and nontender Lower extremities: no edema SKIN: nonjaundiced Neuro: grossly intact. Objective Data Vital Signs Vital Signs: Vital Signs - 24 hr 11/18/24 14:30 11/18/24 15:30 11/18/24 16:00 Temperature Pulse Rate 68 73 68 Respiratory Rate 17 16 15 Blood Pressure 108/48 L 135/58 L 127/57 L Pulse Oximetry 100 100 100 Oxygen Delivery Oxygen Flow Rate 11/18/24 16:45 11/18/24 17:30 11/18/24 18:15 Temperature Pulse Rate 75 72 71 Respiratory Rate 21 H 16 15 Blood Pressure 130/69 154/60 H 125/45 L Pulse Oximetry 99 100 99 Oxygen Delivery Oxygen Flow Rate 11/18/24 19:27 11/18/24 20:15 11/18/24 21:04 Temperature 36.6 C Pulse Rate 87 Respiratory Rate 24 H Blood Pressure 143/100 H 117/78 Pulse Oximetry 97 100 Oxygen Delivery Nasal Cannula Oxygen Flow Rate 2 11/18/24 22:00 11/18/24 23:20 11/19/24 06:00 Temperature 36.4 C L 36.5 C Pulse Rate 71 72 74 Respiratory Rate 18 18 Blood Pressure 141/58 H 133/56 L Pulse Oximetry 100 98 99 Oxygen Delivery Autopap Oxygen Flow Rate 11/19/24 08:00 11/19/24 10:00 11/19/24 10:15 Temperature 36.5 C 36.2 C L 36.2 C L Pulse Rate 72 69 67 Respiratory Rate 18 16 16 Blood Pressure 128/60 145/58 H 156/57 H Pulse Oximetry 99 100 100 Oxygen Delivery Oxygen Flow Rate 11/19/24 11:15 11/19/24 12:15 Temperature 36.4 C 36.4 C Pulse Rate 63 66 Respiratory Rate 16 16 Blood Pressure 120/40 L 132/53 L Pulse Oximetry 100 100 Oxygen Delivery Oxygen Flow Rate Intake/Output Intake/Output: Intake & Output 11/16/24 11/17/24 11/18/24 11/19/24 23:59 23:59 23:59 23:59 Intake Total 3350 1007 Output Total 250 Balance 3350 757 Meds/Results Medications: Active Medications Generic Name Dose Route Start Last Admin Trade Name Freq PRN Reason Stop Dose Admin Acetaminophen 650 mg 11/19/24 08:37 11/19/24 11:18 Acetaminophen 325 Mg Tablet PO 650 mg Q6H PRN Administration Mild Pain (1-3) or Fever Hydrocodone Bitart/Acetaminophen 1 tab 11/18/24 23:43 11/19/24 00:07 Hydrocodone/Acetaminophen (*Crx) 10-325 Mg Tablet PO 1 tab Q6H PRN Administration Pain Rated 4-6 Aspirin 81 mg 11/19/24 09:00 11/19/24 08:33 Aspirin 81 Mg Enteric Tablet PO 81 mg DAILY ELIAS Administration Cholestyramine Resin 4 gm 11/19/24 06:39 Cholestyramine (W/ Sugar) 4 Gm Powd.Pack PO BID PRN diarrhea Diltiazem HCl 240 mg 11/19/24 09:00 11/19/24 08:34 Diltiazem Hcl Cd 240 Mg Cap.24hr PO 240 mg DAILY ELIAS Administration Famotidine 20 mg 11/19/24 09:00 11/19/24 08:33 Famotidine 20 Mg Tablet PO 20 mg DAILY ELIAS Administration Fluticasone Propionate 2 spray 11/19/24 06:40 Fluticasone Propionate 0.05% Na Spr 16 Gm Btl (*Bkc) NASAL DAILY PRN CONGESTION Sodium Chloride 250 mls @ 30 mls/hr 11/19/24 06:38 11/19/24 08:34 Normal Saline Iv IV CONT 11/19/24 14:57 30 mls/hr .Q8H20M STA Administration Magnesium Oxide 400 mg 11/19/24 09:00 11/19/24 08:34 Magnesium Oxide 400 Mg Tablet PO 400 mg DAILY ELIAS Administration Pantoprazole Sodium 40 mg 11/19/24 09:00 11/19/24 08:33 Pantoprazole 40 Mg Tablet PO 40 mg Q12HR ELIAS Administration Prednisone 10 mg 11/19/24 09:00 11/19/24 08:34 Prednisone 10 Mg Tablet PO 10 mg DAILY ELIAS Administration Tamsulosin HCl 0.4 mg 11/19/24 21:00 Tamsulosin Hcl 0.4 Mg Capsule PO QHS ELIAS Trazodone HCl 100 mg 11/19/24 06:39 Trazodone Hcl 50 Mg Tablet PO HS PRN insomnia Radiology Results: ITS Impressions Chest X-Ray 11/18/24 14:28 IMPRESSION: Bilateral upper lobe scarring (as detailed above) without focal infiltrate. Chest/Abdomen/Pelvis CT 11/18/24 14:54 IMPRESSION: No significant change in the chest, abdomen or pelvis from previous examination dated 08/02/2024 with the exception of increase in size of an indeterminate focus of increased attenuation within segment 8 of the liver, possibly a regenerative nodule. Nonacute findings include: Nonobstructing 2 mm calculus within the interpolar region of the left kidney. Colonic diverticulosis spanning from the hepatic flexure to the rectum without surrounding inflammatory change. Splenomegaly. Bilateral upper lobe scar formation, consistent with patient's history. Labs Labs: Laboratory Results - last 24 hr 11/18/24 11/18/24 11/18/24 13:44 15:13 15:54 WBC 10.1 H RBC 3.73 L Hgb 8.7 L Hct 29.7 L MCV 79.6 L MCH 23.3 L MCHC 29.3 L RDW 16.9 H Plt Count 210 MPV 10.4 Immature Gran % (Auto) 1.0 H Neut % (Auto) 83.8 H Lymph % (Auto) 7.7 L [place] % (Auto) 6.6 Eos % (Auto) 0.4 Baso % (Auto) 0.5 Lymph # (Auto) 0.78 L [place] # (Auto) 0.7 H Eos # (Auto) 0.0 Baso # (Auto) 0.1 Abs Immat Gran (auto) 0.10 H Absolute Neuts (auto) 8.5 H Absolute Nucleated RBC 0.000 Band Neutrophils % Not Reportable Nucleated RBC % 0.0 Platelet Estimate Adequate Hypochromasia 1+ Ovalocytes 1+ Schistocytes None seen PT 14.4 INR 1.1 APTT 29.4 Sodium 135 L Potassium 4.5 Chloride 104 Carbon Dioxide 22 Anion Gap 9 BUN 21 H Creatinine 1.83 H Estim Creat Clear Calc 32 Estimated GFR 36 L Glucose 118 H Lactic Acid 3.8 H Calcium 9.3 Phosphorus Magnesium Total Bilirubin 0.4 AST 55 ALT 40 Alkaline Phosphatase 190 H C-Reactive Protein 0.6 NT-Pro-B Natriuret Pep 109 H Total Protein 6.7 Albumin 3.6 Urine Color Urine Appearance Urine pH Ur Specific [place] Urine Protein Urine Glucose (UA) Urine Ketones Ur Blood (Man) Urine Nitrate Urine Bilirubin Urine Urobilinogen Leukocyte Esterase Rfl Nasal MRSA (PCR) Not detected Influenza A (RT-PCR) Negative Influenza B (RT-PCR) Negative RSV (RT-PCR) Negative SARS-CoV-2 RNA (RT-PCR) Negative Blood Type Antibody Screen Crossmatch 11/18/24 11/18/24 11/19/24 16:47 17:18 04:41 WBC RBC Hgb Hct MCV MCH MCHC RDW Plt Count MPV Immature Gran % (Auto) Neut % (Auto) Lymph % (Auto) [place] % (Auto) Eos % (Auto) Baso % (Auto) Lymph # (Auto) [place] # (Auto) Eos # (Auto) Baso # (Auto) Abs Immat Gran (auto) Absolute Neuts (auto) Absolute Nucleated RBC Band Neutrophils % Nucleated RBC % Platelet Estimate Hypochromasia Ovalocytes Schistocytes PT INR APTT Sodium 136 L Potassium 4.4 Chloride 107 Carbon Dioxide 27 Anion Gap 2 L BUN 21 H Creatinine 1.72 H Estim Creat Clear Calc 34 Estimated GFR 38 L Glucose 88 Lactic Acid 3.0 H 1.2 Calcium 8.7 Phosphorus 3.6 Magnesium 1.8 Total Bilirubin AST ALT Alkaline Phosphatase C-Reactive Protein NT-Pro-B Natriuret Pep Total Protein Albumin Urine Color Yellow Urine Appearance Clear Urine pH 6.0 Ur Specific [place] 1.018 Urine Protein Negative Urine Glucose (UA) Negative Urine Ketones Negative Ur Blood (Man) Negative Urine Nitrate Negative Urine Bilirubin Negative Urine Urobilinogen 1.0 Leukocyte Esterase Rfl Negative Nasal MRSA (PCR) Influenza A (RT-PCR) Influenza B (RT-PCR) RSV (RT-PCR) SARS-CoV-2 RNA (RT-PCR) Blood Type Antibody Screen Crossmatch 11/19/24 11/19/24 04:46 07:01 WBC 8.2 RBC 2.92 L Hgb 6.7 L* Hct 23.9 L MCV 81.8 MCH 22.9 L MCHC 28.0 L RDW 17.1 H Plt Count 159 MPV 11.0 H Immature Gran % (Auto) 1.2 H Neut % (Auto) 70.1 Lymph % (Auto) 15.6 L [place] % (Auto) 10.2 H Eos % (Auto) 2.3 Baso % (Auto) 0.6 Lymph # (Auto) 1.27 [place] # (Auto) 0.8 H Eos # (Auto) 0.2 Baso # (Auto) 0.1 Abs Immat Gran (auto) 0.10 H Absolute Neuts (auto) 5.7 Absolute Nucleated RBC 0.000 Band Neutrophils % Nucleated RBC % 0.0 Platelet Estimate Hypochromasia Ovalocytes Schistocytes PT INR APTT Sodium Potassium Chloride Carbon Dioxide Anion Gap BUN Creatinine Estim Creat Clear Calc Estimated GFR Glucose Lactic Acid Calcium Phosphorus Magnesium Total Bilirubin AST ALT Alkaline Phosphatase C-Reactive Protein NT-Pro-B Natriuret Pep Total Protein Albumin Urine Color Urine Appearance Urine pH Ur Specific [place] Urine Protein Urine Glucose (UA) Urine Ketones Ur Blood (Man) Urine Nitrate Urine Bilirubin Urine Urobilinogen Leukocyte Esterase Rfl Nasal MRSA (PCR) Influenza A (RT-PCR) Influenza B (RT-PCR) RSV (RT-PCR) SARS-CoV-2 RNA (RT-PCR) Blood Type O Positive Antibody Screen Negative Crossmatch See Detail Quality VTE Prophylaxis VTE prophylaxis: mechanical ordered (SCDs)
[2024-11-19 14:25] LABS: Hematocrit 27.2 % (42.0-52.0); Hemoglobin 8.0 g/dL (14.0-18.0)
--- NOTE | 2024-11-19 15:42 | WPDONCCN ---
Assessment and Plan Assessment and plan (1) Anemia: Code(s): D64.9 - Anemia, unspecified Status: Acute Assessment and Plan: Patient is a pleasant 7-year-old male with history of lung cancer status post SBRT treatment and low-grade lymphoma. He was last seen in the office in August 2024. He came into the hospital with shortness of breath along with extreme tiredness and fatigue. Hemoglobin was 6.7. Iron study showed iron deficiency anemia. There was mild component of renal insufficiency as well CT scan showed no evidence of lymphadenopathy. There is likely a regenerative nodule in the liver. There was splenomegaly consistent with lymphoma. His anemia is secondary to iron deficiency as well as renal insufficiency. 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 I will check LDH, Armida test as well as vitamin B12 level and erythropoietin level. Have reviewed the previous EGD report from October 2024 and colonoscopy from November 2023. I would recommend GI consultation due to the recent drop in the hemoglobin for repeat EGD. In the meantime I will give him iron infusion. I have recommended him to take oral iron 65 mg twice a day after the discharge. He will follow-up in the office as well. I do not see any evidence of relapse of lymphoma and will continue to observe. There is no evidence of the does of lung cancer as well. HPI Data of Consult Date/Time: 11/19/24 15:42 Requesting Physician: Kimo Ortiz MD Primary Care Provider: Valeriy Marte APRN Consult Narrative Narrative: Dilan Weaver is a 79 year old male pre of stage I non-small cell lung cancer status post SBRT treatment done in October 2021 along with history of marginal zone lymphoma, COPD, GERD, chronic kidney disease came into the hospital with shortness of breath and tiredness and fatigue. Patient has been on 1 L of oxygen at rest and wear CPAP at night. Labs showed hemoglobin of 6.7. Patient received blood transfusion. Other labs showed creatinine of 1.7, iron 18 and iron saturation of 4%. He denies any bleeding including melena and hematochezia. Patient had EGD done in October 2024 that showed gastritis and AVM that was cauterized. His last colonoscopy was in November of 2023. Colonoscopy at that time showed diverticulosis without any bleeding along with some colon polyps. He denies any night sweats fever chills and weight loss. No other new complaints. Patient had CT scan chest abdomen and pelvis done that showed stable finding since July of 2024 there was likely regenerative nodule in the segment 8 of the liver with no acute findings. There was colon diverticulosis. There was splenomegaly. No evidence of lymphadenopathy. 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 Colon polyp Lung cancer Shingles Kidney stones GERD (gastroesophageal reflux disease) History of rectal polyps Gastrointestinal ulcer Diverticulosis Emphysema of lung Cataracts, bilateral Obesity Benign essential hypertension Benign prostatic hyperplasia with lower urinary tract symptoms Chronic low back pain Chronic obstructive pulmonary disease, unspecified Elevated LFTs Follicular lymphoma grade II, unspecified site Lung nodule Mixed hyperlipidemia Obstructive sleep apnea (adult) (pediatric) Rheumatoid arthritis involving multiple sites Splenomegaly Surgical History Surgical History Hx of cholecystectomy History of right knee joint replacement Hx of cataract surgery History of back surgery Family History Family History Mother Family history of osteoarthritis Family history of congestive heart failure, Onset Age: 90 Family history of malignant neoplasm of breast in first degree relative Sibling Carcinoma of colon, Onset Age: 66 Family history of lupus erythematosus, Onset Age: 21 Family history of primary malignant neoplasm of liver Father Acute myocardial infarction Hypertension, Onset Age: 68 Family history of cardiovascular disease, Onset Age: 68 Social History Social History (Updated 11/18/24 @ 21:58 by Bernadette Ann DO) Social History: Code status: Full code Healthcare power of industrial design engineer: Dora Venecia (daughter) Smoking packs per day: 2 Smoking cigarettes per day: 40.0 Years smoked: 50 Smoking pack-years: 100.00 Smoking status: Former smoker Tobacco type: cigarettes Second hand tobacco smoke exposure: No Smoking end date: 07/07/99 Alcohol intake: current Substance use: never Substance use type: does not use Do You Feel Safe in your Home?: Yes Lack of Transportation: No Lack of Food: Never True Current Housing: I Have Housing Concerned About Future Housing: No Difficulty Paying Gas/Electric Bills: No Difficulty Paying for Meds: No Currently Unemployed: No Education: Grade School Difficulty w/ Childcare or Family Care: No Living arrangements: with family Occupation/Education: retired 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 Gender identity (if verbalized by the patient): Male Sexual Orientation (if Verbalized by the Patient): Straight or Heterosexual Spiritual care concerns: No Agree to blood products: Yes Meds Home Medications and Allergies Home Medications ?Medication ?Instructions ?Recorded ?Confirmed ?Type hydrocodone 10 mg-acetaminophen 1 tablet PO Q6H PRN Pain 02/21/20 11/18/24 History 325 mg tablet tamsulosin 0.4 mg capsule 0.4 mg PO QHS 08/01/20 11/18/24 History blood-glucose meter (Accu-Chek #1 ea 08/04/20 11/18/24 Rx Guide Glucose Meter) lancets (Accu-Chek Multiclix #200 ea 08/04/20 11/18/24 Rx Lancet) blood sugar diagnostic (Accu-Chek #100 ea 11/06/20 11/18/24 Rx Guide test strips) aspirin 81 mg tablet,delayed 81 mg PO DAILY 06/25/22 11/18/24 History release (Aspir-) albuterol sulfate 90 mcg/actuation 2 puff inhalation Q4-6H PRN 03/12/23 11/18/24 History aerosol inhaler Shortness Of Breath oxygen-air delivery systems 04/10/23 11/18/24 History hydroxychloroquine 200 mg tablet 200 mg PO DAILY 06/23/23 11/18/24 History celecoxib 200 mg capsule 200 mg PO DAILY 10/27/23 11/18/24 History fluticasone propionate 50 See Rx Instructions .Route 04/28/24 11/18/24 Rx mcg/actuation nasal .COMPLEX #48 grams spray,suspension pravastatin 20 mg tablet 20 mg PO HS #90 tabs 06/28/24 11/18/24 Rx triamterene 37.5 1 tablet PO QAM #90 tabs 06/28/24 11/18/24 Rx mg-hydrochlorothiazide 25 mg tablet diltiazem HCl 240 mg See Rx Instructions .Route 09/29/24 11/18/24 Rx capsule,extended release 24 hr .COMPLEX #90 caps famotidine 20 mg tablet See Rx Instructions .Route 09/29/24 11/18/24 Rx .COMPLEX #90 tabs metformin 500 mg tablet 500 mg PO BID 10/04/24 11/18/24 History omeprazole 40 mg capsule,delayed 40 mg PO DAILY 10/04/24 11/18/24 History release prednisone 10 mg tablet 10 mg PO DAILY 10/04/24 11/18/24 History cholestyramine (with sugar) 4 gram 4 g PO BID PRN diarrhea 11/18/24 11/18/24 History powder for susp in a packet (Questran) magnesium 200 mg tablet 400 mg PO DAILY 11/18/24 11/18/24 History trazodone 50 mg tablet 100 mg PO HS PRN insomnia 11/18/24 11/18/24 History Allergies Allergy/AdvReac Type Severity Reaction Status Date / Time Iodinated Contrast Media Allergy Severe Hives Verified 11/18/24 12:50 infliximab (From Remicade) AdvReac Intermediate Rash Verified 11/18/24 12:50 Vital Signs Vital Signs - 24 hr 11/18/24 16:00 11/18/24 16:45 11/18/24 17:30 Temperature Pulse Rate 68 75 72 Respiratory Rate 15 21 H 16 Blood Pressure 127/57 L 130/69 154/60 H Pulse Oximetry 100 99 100 Oxygen Delivery Oxygen Flow Rate 11/18/24 18:15 11/18/24 19:27 11/18/24 20:15 Temperature 36.6 C Pulse Rate 71 87 Respiratory Rate 15 24 H Blood Pressure 125/45 L 143/100 H 117/78 Pulse Oximetry 99 97 Oxygen Delivery Oxygen Flow Rate 11/18/24 21:04 11/18/24 22:00 11/18/24 23:20 Temperature 36.4 C L Pulse Rate 71 72 Respiratory Rate 18 Blood Pressure 141/58 H Pulse Oximetry 100 100 98 Oxygen Delivery Nasal Cannula Autopap Oxygen Flow Rate 2 11/19/24 06:00 11/19/24 08:00 11/19/24 10:00 Temperature 36.5 C 36.5 C 36.2 C L Pulse Rate 74 72 69 Respiratory Rate 18 18 16 Blood Pressure 133/56 L 128/60 145/58 H Pulse Oximetry 99 99 100 Oxygen Delivery Oxygen Flow Rate 11/19/24 10:15 11/19/24 11:15 11/19/24 12:15 Temperature 36.2 C L 36.4 C 36.4 C Pulse Rate 67 63 66 Respiratory Rate 16 16 16 Blood Pressure 156/57 H 120/40 L 132/53 L Pulse Oximetry 100 100 100 Oxygen Delivery Oxygen Flow Rate Exam Narrative: Lungs are clear to auscultation bilaterally Cardiovascular regular rate rhythm no murmurs Abdomen is slight tenderness on the left lower quadrant bowel sounds are positive Extremities no edema Results Labs 11/19/24 14:20 11/19/24 04:41 Labs: Short CBC 11/19/24 11/19/24 Range/Units 04:46 14:20 WBC 8.2 (4.5-10.0) K/mm3 Hgb 6.7 L* 8.0 L (14.0-18.0) g/dL Hct 23.9 L 27.2 L (42.0-52.0) % Plt Count 159 (150-375) k/mm3 BMP 11/19/24 04:41 Sodium 136 L Potassium 4.4 Chloride 107 Carbon Dioxide 27 BUN 21 H Creatinine 1.72 H Glucose 88 Calcium 8.7 Urine 11/18/24 Range/Units 16:47 Urine Color Yellow (Yellow) Urine Appearance Clear (Clear) Urine pH 6.0 (5.0-9.0) Ur Specific [place] 1.018 (1.001-1.035) Urine Protein Negative (Negative) mg/dL Urine Glucose (UA) Negative (Negative) mg/dL
[2024-11-19 16:11] LABS: IFOB Positive Control Positive; Immunochemical Fecal Occult Bl Negative (N)
[2024-11-19] MEDS: IRON SUCROSE COMPLEX 400 MG, IRON SUCROSE COMPLEX 100 MG in SODIUM CHLORIDE 0.9% IV 250 ML 78.57 MG IVPB (17:14)
--- NOTE | 2024-11-19 17:30 | PC.NURSE ---
Upon starting IV iron infusion, patient said he felt faint. I stopped the iron infusion and spoke with pharmacist who said it is fine to run at a lower rate if patient tolerates it better. Pt. blood pressure taken with IV iron rate running at 36mL/hr instead of 78mL/hour and his blood pressure was WNL. He is tolerating the iron infusion at a lower rate. Pt. instructed to call RN if symptoms come back. Bed alarm initiated on pt. during iron infusion.
[2024-11-19 19:00] LABS: Vitamin B12 505.0 pg/mL (239-931)
[2024-11-19] MEDS: TAMSULOSIN HCL 0.4 MG CAPSULE PO (20:31)
[2024-11-20] VITALS (7 sets, daily range): BP systolic 126–173; BP diastolic 49–65; PULSE 66–74; RESP 18–20; TEMP 36.1–36.5; O2SAT 97–100
--- NOTE | 2024-11-20 06:18 | PM.EVENT ---
Event Note Event Note Event Note: I received a phone call from RN stating that pt's BC had grown out Gram Positive Cocci out of the anaerobic bottle of one set of Blood cultures. Previous abx of Vancomycin and Cefepime had previously been discontinued by previous physician as there was no notable source for infection. They are restarted at this time in the setting of abnormal blood cultures.
[2024-11-20] MEDS: VANCOMYCIN 1,500 MG/NS 500 ML 1,500 MG/500 ML BAG 250 MG IVPB (06:37)
[2024-11-20] MEDS: HYDROcodone/acetaminophen (*CRX) 10-325 MG TABLET 1 TAB PO ×3 (08:53→21:08)
[2024-11-20 08:56] LABS: Hematocrit 30.5 % (42.0-52.0); Hemoglobin 9.0 g/dL (14.0-18.0); Mean Corpuscular HGB Conc 29.5 g/dl (32-36); Mean Corpuscular Hemoglobin 23.6 pg (26-34); Mean Corpuscular Volume 80.1 fl (80-100); Platelet Count Result 162 k/mm3 (150-375); Red Blood Count 3.81 M/mm3 (4.6-6.20); White Blood Count 10.4 K/mm3 (4.5-10.0)
[2024-11-20] MEDS: ASPIRIN 81 MG ENTERIC TABLET PO (08:56)
[2024-11-20] MEDS: PANTOPRAZOLE 40 MG TABLET PO ×2 (08:56→21:06)
[2024-11-20] MEDS: dilTIAZem HCL CD 240 MG CAP.24HR PO (08:56)
[2024-11-20] MEDS: MAGNESIUM OXIDE 400 MG TABLET PO (08:56)
[2024-11-20] MEDS: FAMOTIDINE 20 MG TABLET PO (08:56)
[2024-11-20 09:20] LABS: Anion Gap 5 mmol/L (4-12); Blood Urea Nitrogen 18 mg/dL (9-20); Calcium 9.0 mg/dL (8.4-10.2); Carbon Dioxide 27 mmol/L (22-30); Chloride 105 mmol/L (98-107); Estimated CRCL calculation 45 ml/min; Estimated Glomerular Filt Rate 53; Glucose 92 mg/dL (65-110); Magnesium 1.7 mg/dL (1.6-2.3); Potassium 3.6 mmol/L (3.4-5.0); Sodium 137 mmol/L (137-145)
[2024-11-20] MEDS: CEFEPIME 2 GM in SODIUM CHLORIDE 0.9% IV 50 ML 100 ML IVPB ×2 (10:15→21:06)
--- NOTE | 2024-11-20 12:25 | PM.IMPN ---
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: Code(s): K58.2 - Mixed irritable bowel syndrome Status: Acute (6) Diarrhea: Qualifiers: Diarrhea type: unspecified type Qualified Code(s): R19.7 - Diarrhea, unspecified Code(s): R19.7 - Diarrhea, unspecified Status: Acute (7) Chronic kidney disease, stage 3b: Code(s): N18.32 - Chronic kidney disease, stage 3b Status: Acute (8) Benign essential hypertension: Code(s): I10 - Essential (primary) hypertension Status: Acute (9) Chronic hypoxemic respiratory failure: Code(s): J96.11 - Chronic respiratory failure with hypoxia Status: Acute (10) Rheumatoid arthritis: Qualifiers: Rheumatoid arthritis location: multiple sites Rheumatoid factor presence: with rheumatoid factor Qualified Code(s): M05.79 - Rheumatoid arthritis with rheumatoid factor of multiple sites without organ or systems involvement Code(s): M06.9 - Rheumatoid arthritis, unspecified Status: Acute (11) Type 2 diabetes mellitus: Qualifiers: Diabetes mellitus nursing home insulin use: without nursing home use Diabetes mellitus complication status: without complication Qualified Code(s): E11.9 - Type 2 diabetes mellitus without complications Code(s): E11.9 - Type 2 diabetes mellitus without complications Status: Acute Plan Patient presented with transient hypotension most likely due to hypovolemia in setting of mild acute on chronic anemia. Patient's anemia is likely due to his history of CLL with possible component GI losses given the is on chronic NSAID therapy with Celebrex. Will hold the patient's home Celebrex and repeat CBC in a.m.. I anticipate the patient hemoglobin to drop due to delusional factors that he did receive 30 mL/kilos fluid bolus of isotonic fluids. Will type and crossmatch patient in anticipation for likely need for blood transfusion. The patient did have some tachycardia and mild tachypnea on initial presentation to the ER but no white count or fever. I suspect patient's tachycardia was more due to volume depletion in likely due to infection. Patient did receive empiric antibiotic therapy with cefepime and vancomycin but no identifying couple source of infection was noted so antibiotics will be discontinued. The patient's imaging did demonstrate chronic changes in his lung consistent with scar formation. Will increase the patient's Protonix to 40 mg p.o. b.i.d.. Patient did have some lactic acidosis that was persistently elevated after fluid administration. I suspect patient's IV fluid boluses were not completed but had the patient's repeat lactic acid was drawn. Also the patient is on metformin and does have an indeterminate liver lesion as a could be adding a component to lactic acidosis. Will give the patient 1 more L IV fluids overnight and re-evaluate lactic acid in fluid status in a.m.. Will hold hydroxychloroquine into lactic acidosis has resolved and until anemia improves. Anemia could be also in part due to bone marrow suppression with hydroxychloroquine The patient does have history of diarrhea alternating with constipation. He reported that he had had 4-5 weeks of more persistent diarrhea but at the time my evaluation he stated that he had to strain to have a bowel movement today once he arrived to the medical floor. Will cancel C diff PCR and stool culture. Will still collect stool occult blood once patient produces stool specimen. Will hold patient's home Celebrex. Will continue patient's home famotidine in addition to Protonix. The patient's renal function remained stable. Will repeat electrolyte panel in a.m.. Patient does have type 2 diabetes mellitus will hold metformin while hospitalized specially in the setting of acute lactic acidosis. He is currently euglycemic. patient with history of lung CA, CLL, COPD, GERD and CKD presented with c/o shortness of breath, is found to have low hgb of 6.7, patient does not have any history of rectal bleeding, etiology is multifactorial, possible 2/2 CLL, CKD and or rectal bleeding, ordered stool hemoccult which is negative, patient was given 1 unit PRBC, stats feels better, patient was seen by his oncologist Dr. Alex for further evaluation may may iron deficiency anemia, and possibly due to CKD, patient is given iron infusion and started on oral iron, and further work up is in progress including Epogen levels, one of the blood culture bottle is growing, gram positive cocci, antibiotics are resume and will give probiotics to the patient, will monitor. will have PT/OT evaluate the patient. Subjective Date/time seen: 11/20/24 12:25 Interval history: Shortness of breath and low hemoglobin Narrative: 79-year-old male with a past medical history of previously treated lung cancer, CLL, COPD, GERD, chronic kidney disease, BPH and essential hypertension who presented to the ER due to shortness of breath and low hemoglobin on outpatient labs. The patient reports that he is on 1 L of oxygen at rest all the time and 2 L with activity. He also wears a CPAP at night. He reports that he has been having some episodes of lightheadedness with position changes that have been ongoing for some time but worsening over the last several weeks. He reports he is always short of breath with exertion but denies any chest pain. His shortness of breath is slightly worse than at baseline. He denies any lower extremity pain. He has not noticed any hematochezia or melena. He has been having increased loose stools over the last 4-5 weeks but states that today he was actually having trouble and had to strain to go to the bathroom once he arrived at the hospital. He denies any hematochezia or melena. He has not had any cough or congestion. He denies any recent ill contacts. He has not noticed any hematuria. patient with history of lung CA, CLL, COPD, GERD and CKD presented with c/o shortness of breath, is found to have low hgb of 6.7, patient does not have any history of rectal bleeding, etiology is multifactorial, possible 2/2 CLL, CKD and or rectal bleeding, ordered stool hemoccult which is negative, patient was given 1 unit PRBC, stats feels better, patient was seen by his oncologist Dr. Alex for further evaluation may may iron deficiency anemia, and possibly due to CKD, patient is given iron infusion and started on oral iron, and further work up is in progress including Epogen levels, one of the blood culture bottle is growing, gram positive cocci, antibiotics are resume and will give probiotics to the patient, will monitor. will have PT/OT evaluate the patient. Review of Systems Review of Systems: 12 systems were reviewed with pertinent positives and negatives per HPI. Except as documented in the HPI, all other systems were reviewed and are negative. 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 Exam Narrative: Patient is comfortable, NAD HEENT: eyes are clear and none icteric LUNGS:CTA HEART: RR S1S2 ABD: BS+, Soft and nontender Lower extremities: no edema SKIN: nonjaundiced Neuro: grossly intact. Objective Data Vital Signs Vital Signs: Vital Signs - 24 hr 11/19/24 16:00 11/19/24 20:00 11/19/24 22:00 Temperature 36.4 C 36.4 C Pulse Rate 70 63 Respiratory Rate 18 18 Blood Pressure 130/62 149/58 H Pulse Oximetry 99 99 100 Oxygen Delivery Nasal Cannula Oxygen Flow Rate 1 11/19/24 22:30 11/20/24 08:58 Temperature 36.1 C L Pulse Rate 63 68 Respiratory Rate 18 18 Blood Pressure 169/62 H Pulse Oximetry 100 100 Oxygen Delivery Nasal Cannula Oxygen Flow Rate 2 Intake/Output Intake/Output: Intake & Output 11/17/24 11/18/24 11/19/24 11/20/24 23:59 23:59 23:59 23:59 Intake Total 3350 1253.5 1038.5 Output Total 1000 Balance 3350 253.5 1038.5 Meds/Results Medications: Active Medications Generic Name Dose Route Start Last Admin Trade Name Freq PRN Reason Stop Dose Admin Acetaminophen 650 mg 11/19/24 08:37 11/19/24 11:18 Acetaminophen 325 Mg Tablet PO 650 mg Q6H PRN Administration Mild Pain (1-3) or Fever Hydrocodone Bitart/Acetaminophen 1 tab 11/18/24 23:43 11/20/24 08:53 Hydrocodone/Acetaminophen (*Crx) 10-325 Mg Tablet PO 1 tab Q6H PRN Administration Pain Rated 4-6 Aspirin 81 mg 11/19/24 09:00 11/20/24 08:56 Aspirin 81 Mg Enteric Tablet PO 81 mg DAILY ELIAS Administration Cholestyramine Resin 4 gm 11/19/24 06:39 Cholestyramine (W/ Sugar) 4 Gm Powd.Pack PO BID PRN diarrhea Diltiazem HCl 240 mg 11/19/24 09:00 11/20/24 08:56 Diltiazem Hcl Cd 240 Mg Cap.24hr PO 240 mg DAILY ELIAS Administration Famotidine 20 mg 11/19/24 09:00 11/20/24 08:56 Famotidine 20 Mg Tablet PO 20 mg DAILY ELIAS Administration Fluticasone Propionate 2 spray 11/19/24 06:40 Fluticasone Propionate 0.05% Na Spr 16 Gm Btl (*Bkc) NASAL DAILY PRN CONGESTION Cefepime HCl 2 gm/ Sodium 50 mls @ 100 mls/hr 11/20/24 08:00 Chloride IVPB Q12H ELIAS Vancomycin HCl 1,500 mg in 500 mls @ 250 mls/hr 11/20/24 07:00 11/20/24 06:37 Vancomycin 1,500 Mg/Ns 500 Ml IVPB 250 mls/hr Q36H ELIAS Administration Magnesium Oxide 400 mg 11/19/24 09:00 11/20/24 08:56 Magnesium Oxide 400 Mg Tablet PO 400 mg DAILY ELIAS Administration Pantoprazole Sodium 40 mg 11/19/24 09:00 11/20/24 08:56 Pantoprazole 40 Mg Tablet PO 40 mg Q12HR ELIAS Administration Prednisone 10 mg 11/19/24 09:00 11/20/24 08:56 Prednisone 10 Mg Tablet PO 10 mg DAILY ELIAS Administration Tamsulosin HCl 0.4 mg 11/19/24 21:00 11/19/24 20:31 Tamsulosin Hcl 0.4 Mg Capsule PO 0.4 mg QHS ELIAS Administration Trazodone HCl 100 mg 11/19/24 06:39 Trazodone Hcl 50 Mg Tablet PO HS PRN insomnia Radiology Results: ITS Impressions Chest X-Ray 11/18/24 14:28 IMPRESSION: Bilateral upper lobe scarring (as detailed above) without focal infiltrate. Chest/Abdomen/Pelvis CT 11/18/24 14:54 IMPRESSION: No significant change in the chest, abdomen or pelvis from previous examination dated 08/02/2024 with the exception of increase in size of an indeterminate focus of increased attenuation within segment 8 of the liver, possibly a regenerative nodule. Nonacute findings include: Nonobstructing 2 mm calculus within the interpolar region of the left kidney. Colonic diverticulosis spanning from the hepatic flexure to the rectum without surrounding inflammatory change. Splenomegaly. Bilateral upper lobe scar formation, consistent with patient's history. Labs Labs: Laboratory Results - last 24 hr 11/19/24 11/19/24 11/19/24 07:01 14:20 14:59 WBC RBC Hgb 8.0 L Hct 27.2 L MCV MCH MCHC RDW Plt Count MPV Sodium Potassium Chloride Carbon Dioxide Anion Gap BUN Creatinine Estim Creat Clear Calc Estimated GFR Glucose Calcium Magnesium Lactate Dehydrogenase Vitamin B12 Folate Stl Occult Blood (IFOB) Negative EMILY, IgG Interpret EMILY, Poly Interpret EMILY, Complement Interp Crossmatch See Detail 11/19/24 11/20/24 17:13 08:26 WBC 10.4 H RBC 3.81 L Hgb 9.0 L Hct 30.5 L MCV 80.1 MCH 23.6 L MCHC 29.5 L RDW 16.9 H Plt Count 162 MPV 10.1 Sodium 137 Potassium 3.6 Chloride 105 Carbon Dioxide 27 Anion Gap 5 BUN 18 Creatinine 1.31 H Estim Creat Clear Calc 45 Estimated GFR 53 L Glucose 92 Calcium 9.0 Magnesium 1.7 Lactate Dehydrogenase 246 Vitamin B12 505.0 Folate 6.8 Stl Occult Blood (IFOB) EMILY, IgG Interpret Neg EMILY, Poly Interpret 1+ EMILY, Complement Interp Negative Crossmatch Quality VTE Prophylaxis VTE prophylaxis: mechanical ordered (SCDs)
[2024-11-20] MEDS: SACCHAROMYCES BOULARDII 250 MG CAPSULE PO (17:27)
[2024-11-20] MEDS: TAMSULOSIN HCL 0.4 MG CAPSULE PO (21:06)
--- NOTE | 2024-11-20 21:31 | PCRTNOTE ---
Patient wears CPAP at home; refused for the second night after not tolerating a hospital mask; did not bring his home machine today but if staying another night, he will have his home CPAP machine brought in for use; Nasal cannula 2 L/min, SpO2:98%
[2024-11-21] VITALS (7 sets, daily range): BP systolic 137–156; BP diastolic 50–60; PULSE 68–75; RESP 18–20; TEMP 36.5–36.6; O2SAT 96–100
[2024-11-21 05:04] LABS: Hematocrit 28.2 % (42.0-52.0); Hemoglobin 8.3 g/dL (14.0-18.0); Mean Corpuscular HGB Conc 29.4 g/dl (32-36); Mean Corpuscular Hemoglobin 23.9 pg (26-34); Mean Corpuscular Volume 81.3 fl (80-100); Platelet Count Result 165 k/mm3 (150-375); Red Blood Count 3.47 M/mm3 (4.6-6.20); White Blood Count 9.1 K/mm3 (4.5-10.0)
[2024-11-21 05:17] LABS: Anion Gap 2 mmol/L (4-12); Blood Urea Nitrogen 16 mg/dL (9-20); Calcium 9.1 mg/dL (8.4-10.2); Carbon Dioxide 28 mmol/L (22-30); Chloride 105 mmol/L (98-107); Estimated CRCL calculation 43 ml/min; Estimated Glomerular Filt Rate 51; Glucose 84 mg/dL (65-110); Magnesium 1.8 mg/dL (1.6-2.3); Potassium 4.0 mmol/L (3.4-5.0); Sodium 135 mmol/L (137-145)
[2024-11-21] MEDS: PANTOPRAZOLE 40 MG TABLET PO ×2 (08:35→21:04)
[2024-11-21] MEDS: HYDROcodone/acetaminophen (*CRX) 10-325 MG TABLET 1 TAB PO ×2 (08:35→21:04)
[2024-11-21] MEDS: MAGNESIUM OXIDE 400 MG TABLET PO (08:35)
[2024-11-21] MEDS: FAMOTIDINE 20 MG TABLET PO (08:35)
[2024-11-21] MEDS: dilTIAZem HCL CD 240 MG CAP.24HR PO (08:36)
[2024-11-21] MEDS: SACCHAROMYCES BOULARDII 250 MG CAPSULE PO ×3 (08:36→17:35)
[2024-11-21] MEDS: ASPIRIN 81 MG ENTERIC TABLET PO (08:36)
[2024-11-21] MEDS: CEFEPIME 2 GM in SODIUM CHLORIDE 0.9% IV 50 ML 100 ML IVPB ×2 (08:38→21:04)
--- NOTE | 2024-11-21 11:24 | PM.IMPN ---
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: Code(s): K58.2 - Mixed irritable bowel syndrome Status: Acute (6) Diarrhea: Qualifiers: Diarrhea type: unspecified type Qualified Code(s): R19.7 - Diarrhea, unspecified Code(s): R19.7 - Diarrhea, unspecified Status: Acute (7) Chronic kidney disease, stage 3b: Code(s): N18.32 - Chronic kidney disease, stage 3b Status: Acute (8) Benign essential hypertension: Code(s): I10 - Essential (primary) hypertension Status: Acute (9) Chronic hypoxemic respiratory failure: Code(s): J96.11 - Chronic respiratory failure with hypoxia Status: Acute (10) Rheumatoid arthritis: Qualifiers: Rheumatoid arthritis location: multiple sites Rheumatoid factor presence: with rheumatoid factor Qualified Code(s): M05.79 - Rheumatoid arthritis with rheumatoid factor of multiple sites without organ or systems involvement Code(s): M06.9 - Rheumatoid arthritis, unspecified Status: Acute (11) Type 2 diabetes mellitus: Qualifiers: Diabetes mellitus penitentiary insulin use: without penitentiary use Diabetes mellitus complication status: without complication Qualified Code(s): E11.9 - Type 2 diabetes mellitus without complications Code(s): E11.9 - Type 2 diabetes mellitus without complications Status: Acute Plan Patient presented with transient hypotension most likely due to hypovolemia in setting of mild acute on chronic anemia. Patient's anemia is likely due to his history of CLL with possible component GI losses given the is on chronic NSAID therapy with Celebrex. Will hold the patient's home Celebrex and repeat CBC in a.m.. I anticipate the patient hemoglobin to drop due to delusional factors that he did receive 30 mL/kilos fluid bolus of isotonic fluids. Will type and crossmatch patient in anticipation for likely need for blood transfusion. The patient did have some tachycardia and mild tachypnea on initial presentation to the ER but no white count or fever. I suspect patient's tachycardia was more due to volume depletion in likely due to infection. Patient did receive empiric antibiotic therapy with cefepime and vancomycin but no identifying couple source of infection was noted so antibiotics will be discontinued. The patient's imaging did demonstrate chronic changes in his lung consistent with scar formation. Will increase the patient's Protonix to 40 mg p.o. b.i.d.. Patient did have some lactic acidosis that was persistently elevated after fluid administration. I suspect patient's IV fluid boluses were not completed but had the patient's repeat lactic acid was drawn. Also the patient is on metformin and does have an indeterminate liver lesion as a could be adding a component to lactic acidosis. Will give the patient 1 more L IV fluids overnight and re-evaluate lactic acid in fluid status in a.m.. Will hold hydroxychloroquine into lactic acidosis has resolved and until anemia improves. Anemia could be also in part due to bone marrow suppression with hydroxychloroquine The patient does have history of diarrhea alternating with constipation. He reported that he had had 4-5 weeks of more persistent diarrhea but at the time my evaluation he stated that he had to strain to have a bowel movement today once he arrived to the medical floor. Will cancel C diff PCR and stool culture. Will still collect stool occult blood once patient produces stool specimen. Will hold patient's home Celebrex. Will continue patient's home famotidine in addition to Protonix. The patient's renal function remained stable. Will repeat electrolyte panel in a.m.. Patient does have type 2 diabetes mellitus will hold metformin while hospitalized specially in the setting of acute lactic acidosis. He is currently euglycemic. patient with history of lung CA, CLL, COPD, GERD and CKD presented with c/o shortness of breath, is found to have low hgb of 6.7, patient does not have any history of rectal bleeding, etiology is multifactorial, possible 2/2 CLL, CKD and or rectal bleeding, ordered stool hemoccult which is negative, patient was given 1 unit PRBC, stats feels better, patient was seen by his oncologist Dr. Alex for further evaluation may have iron deficiency anemia, and possibly due to CKD, patient is given iron infusion and started on oral iron, and further work up is in progress including Epogen levels, one of the blood culture bottle is growing, gram positive cocci, antibiotics are resumed and will give probiotics to the patient, patient will be seen by GI tomorrow, will follow up on blood culture, and further recommendation to follow, will monitor. will have PT/OT evaluate the patient. Subjective Date/time seen: 11/21/24 11:24 Interval history: Shortness of breath and low hemoglobin Narrative: 79-year-old male with a past medical history of previously treated lung cancer, CLL, COPD, GERD, chronic kidney disease, BPH and essential hypertension who presented to the ER due to shortness of breath and low hemoglobin on outpatient labs. The patient reports that he is on 1 L of oxygen at rest all the time and 2 L with activity. He also wears a CPAP at night. He reports that he has been having some episodes of lightheadedness with position changes that have been ongoing for some time but worsening over the last several weeks. He reports he is always short of breath with exertion but denies any chest pain. His shortness of breath is slightly worse than at baseline. He denies any lower extremity pain. He has not noticed any hematochezia or melena. He has been having increased loose stools over the last 4-5 weeks but states that today he was actually having trouble and had to strain to go to the bathroom once he arrived at the hospital. He denies any hematochezia or melena. He has not had any cough or congestion. He denies any recent ill contacts. He has not noticed any hematuria. patient with history of lung CA, CLL, COPD, GERD and CKD presented with c/o shortness of breath, is found to have low hgb of 6.7, patient does not have any history of rectal bleeding, etiology is multifactorial, possible 2/2 CLL, CKD and or rectal bleeding, ordered stool hemoccult which is negative, patient was given 1 unit PRBC, stats feels better, patient was seen by his oncologist Dr. Alex for further evaluation may have iron deficiency anemia, and possibly due to CKD, patient is given iron infusion and started on oral iron, and further work up is in progress including Epogen levels, one of the blood culture bottle is growing, gram positive cocci, antibiotics are resumed and will give probiotics to the patient, patient will be seen by GI tomorrow, will follow up on blood culture, and further recommendation to follow, will monitor. will have PT/OT evaluate the patient. Review of Systems Review of Systems: 12 systems were reviewed with pertinent positives and negatives per HPI. Except as documented in the HPI, all other systems were reviewed and are negative. 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 Exam Narrative: Patient is comfortable, NAD HEENT: eyes are clear and none icteric LUNGS:CTA HEART: RR S1S2 ABD: BS+, Soft and nontender Lower extremities: no edema SKIN: nonjaundiced Neuro: grossly intact. Objective Data Vital Signs Vital Signs: Vital Signs - 24 hr 11/20/24 14:51 11/20/24 21:10 11/20/24 21:29 Temperature 36.2 C L 36.5 C Pulse Rate 66 72 74 Respiratory Rate 18 20 18 Blood Pressure 126/49 L 173/65 H Pulse Oximetry 97 98 98 Oxygen Delivery Nasal Cannula Oxygen Flow Rate 2 11/20/24 21:31 11/21/24 04:55 11/21/24 10:34 Temperature 36.6 C Pulse Rate 74 68 Respiratory Rate 18 Blood Pressure 137/50 L Pulse Oximetry 98 99 96 Oxygen Delivery Nasal Cannula Nasal Cannula Oxygen Flow Rate 2 Intake/Output Intake/Output: Intake & Output 11/18/24 11/19/24 11/20/24 11/21/24 23:59 23:59 23:59 23:59 Intake Total 3350 1253.5 2948.5 490 Output Total 1000 600 Balance 3350 253.5 2948.5 -110 Meds/Results Medications: Active Medications Generic Name Dose Route Start Last Admin Trade Name Freq PRN Reason Stop Dose Admin Acetaminophen 650 mg 11/19/24 08:37 11/19/24 11:18 Acetaminophen 325 Mg Tablet PO 650 mg Q6H PRN Administration Mild Pain (1-3) or Fever Hydrocodone Bitart/Acetaminophen 1 tab 11/18/24 23:43 11/21/24 08:35 Hydrocodone/Acetaminophen (*Crx) 10-325 Mg Tablet PO 1 tab Q6H PRN Administration Pain Rated 4-6 Aspirin 81 mg 11/19/24 09:00 11/21/24 08:36 Aspirin 81 Mg Enteric Tablet PO 81 mg DAILY ELIAS Administration Cholestyramine Resin 4 gm 11/19/24 06:39 Cholestyramine (W/ Sugar) 4 Gm Powd.Pack PO BID PRN diarrhea Diltiazem HCl 240 mg 11/19/24 09:00 11/21/24 08:36 Diltiazem Hcl Cd 240 Mg Cap.24hr PO 240 mg DAILY ELIAS Administration Famotidine 20 mg 11/19/24 09:00 11/21/24 08:35 Famotidine 20 Mg Tablet PO 20 mg DAILY ELIAS Administration Fluticasone Propionate 2 spray 11/19/24 06:40 Fluticasone Propionate 0.05% Na Spr 16 Gm Btl (*Bkc) NASAL DAILY PRN CONGESTION Cefepime HCl 2 gm/ Sodium 50 mls @ 100 mls/hr 11/20/24 08:00 11/21/24 09:08 Chloride IVPB Infused Q12H ELIAS Infusion Vancomycin HCl 1,500 mg in 500 mls @ 250 mls/hr 11/20/24 07:00 11/20/24 08:37 Vancomycin 1,500 Mg/Ns 500 Ml IVPB Infused Q36H ELIAS Infusion Magnesium Oxide 400 mg 11/19/24 09:00 11/21/24 08:35 Magnesium Oxide 400 Mg Tablet PO 400 mg DAILY ELIAS Administration Pantoprazole Sodium 40 mg 11/19/24 09:00 11/21/24 08:35 Pantoprazole 40 Mg Tablet PO 40 mg Q12HR ELIAS Administration Prednisone 10 mg 11/19/24 09:00 11/21/24 08:36 Prednisone 10 Mg Tablet PO 10 mg DAILY ELIAS Administration Saccharomyces Boulardii 250 mg 11/20/24 17:00 11/21/24 08:36 Saccharomyces Boulardii 250 Mg Capsule PO 250 mg TID ELIAS Administration Tamsulosin HCl 0.4 mg 11/19/24 21:00 11/20/24 21:06 Tamsulosin Hcl 0.4 Mg Capsule PO 0.4 mg QHS ELIAS Administration Trazodone HCl 100 mg 11/19/24 06:39 Trazodone Hcl 50 Mg Tablet PO HS PRN insomnia Radiology Results: ITS Impressions Chest X-Ray 11/18/24 14:28 IMPRESSION: Bilateral upper lobe scarring (as detailed above) without focal infiltrate. Chest/Abdomen/Pelvis CT 11/18/24 14:54 IMPRESSION: No significant change in the chest, abdomen or pelvis from previous examination dated 08/02/2024 with the exception of increase in size of an indeterminate focus of increased attenuation within segment 8 of the liver, possibly a regenerative nodule. Nonacute findings include: Nonobstructing 2 mm calculus within the interpolar region of the left kidney. Colonic diverticulosis spanning from the hepatic flexure to the rectum without surrounding inflammatory change. Splenomegaly. Bilateral upper lobe scar formation, consistent with patient's history. Labs Labs: Laboratory Results - last 24 hr 11/21/24 04:18 WBC 9.1 RBC 3.47 L Hgb 8.3 L Hct 28.2 L MCV 81.3 MCH 23.9 L MCHC 29.4 L RDW 17.0 H Plt Count 165 MPV 10.5 H Sodium 135 L Potassium 4.0 Chloride 105 Carbon Dioxide 28 Anion Gap 2 L BUN 16 Creatinine 1.35 H Estim Creat Clear Calc 43 Estimated GFR 51 L Glucose 84 Calcium 9.1 Magnesium 1.8 Quality VTE Prophylaxis VTE prophylaxis: mechanical ordered (SCDs)
--- NOTE | 2024-11-21 15:21 | P.CONGI_ITS ---
Assessment and Plan Assessment and plan (1) Acute on chronic anemia: Code(s): D64.9 - Anemia, unspecified Status: Acute Assessment and Plan: will repeat EGD since recent one had AVM in stomach colonoscopy last year without findings to explain anemia also h/o lymphoma and ckd which can aggravate anemia more recommendations after egd hem-onc on board (2) Chronic kidney disease, stage 3b: Code(s): N18.32 - Chronic kidney disease, stage 3b Status: Acute (3) Follicular lymphoma grade II, unspecified site: Qualifiers: Lymphoma site: unspecified region Qualified Code(s): C82.10 - Follicular lymphoma grade II, unspecified site Code(s): C82.10 - Follicular lymphoma grade II, unspecified site Status: Acute (4) Lung cancer: Code(s): C34.90 - Malignant neoplasm of unspecified part of unspecified bronchus or lung Status: Acute (5) AVM (arteriovenous malformation) of stomach, acquired: Code(s): K31.819 - Angiodysplasia of stomach and duodenum without bleeding Status: Acute GI Consult Note Consult date/time: 11/21/24 15:21 Reason for consult: symtpomatic anemia HPI: Dilan Weaver is a 79 year old male with past medical surgical history of DM (on metformin), GERD, chronic abdominal pain, and cholecystectomy, alsolung cancer status post SBRT treatment and low-grade lymphoma. He is seeing brass sorter because chronic anemia. Here with shortness of breath along with extreme tiredness and fatigue. Hemoglobin was 6.7 (baseline 8-9). Iron study showed iron deficiency anemia. Colonoscopy 11/2023 no signs of bleeding, EGD last month showed non bleeding AVM stomach treated with APC (indication anemia). He denies overt gib, his oncologist recommending to repeat another EGD. Review of Systems 2 Constitutional: Constitutional: Reports lethargy Eyes: Eyes: Denies blurry vision ENT: Reports Normal hearing present Cardiovascular: Cardiovascular: Denies chest pain Respiratory: Respiratory: Denies cough Gastrointestinal: Gastrointestinal: Denies abdominal pain Genitourinary: Genitourinary: Denies dysuria Musculoskeletal: Musculoskeletal: Denies neck pain Integumentary/Breasts: Skin/Breast: Denies rash Neurologic: Denies Abnormal speech present Psychiatric: Psychiatric: Denies behavioral changes [facility] Past Medical History Medical History (Updated 11/21/24 @ 15:25 by Mike Stack MD) AVM (arteriovenous malformation) of stomach, acquired Acute on chronic anemia Chronic kidney disease, stage 3b Type 2 diabetes mellitus Anemia 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 Colon polyp Lung cancer Shingles Kidney stones GERD (gastroesophageal reflux disease) History of rectal polyps Gastrointestinal ulcer Diverticulosis Emphysema of lung Cataracts, bilateral Obesity Benign essential hypertension Benign prostatic hyperplasia with lower urinary tract symptoms Chronic low back pain Chronic obstructive pulmonary disease, unspecified Elevated LFTs Follicular lymphoma grade II, unspecified site Lung nodule Mixed hyperlipidemia Obstructive sleep apnea (adult) (pediatric) Rheumatoid arthritis involving multiple sites Splenomegaly Surgical History Surgical History Hx of cholecystectomy History of right knee joint replacement Hx of cataract surgery History of back surgery Family History Family History Mother Family history of osteoarthritis Family history of congestive heart failure, Onset Age: 90 Family history of malignant neoplasm of breast in first degree relative Sibling Carcinoma of colon, Onset Age: 66 Family history of lupus erythematosus, Onset Age: 21 Family history of primary malignant neoplasm of liver Father Acute myocardial infarction Hypertension, Onset Age: 68 Family history of cardiovascular disease, Onset Age: 68 Social History Social History (Updated 11/18/24 @ 21:58 by Bernadette Ann DO) Social History: Code status: Full code Healthcare power of deputy commonwealth's attorney: Dora Cuadra (daughter) Smoking packs per day: 2 Smoking cigarettes per day: 40.0 Years smoked: 50 Smoking pack-years: 100.00 Smoking status: Former smoker Tobacco type: cigarettes Second hand tobacco smoke exposure: No Smoking end date: 07/07/99 Alcohol intake: current Substance use: never Substance use type: does not use Do You Feel Safe in your Home?: Yes Lack of Transportation: No Lack of Food: Never True Current Housing: I Have Housing Concerned About Future Housing: No Difficulty Paying Gas/Electric Bills: No Difficulty Paying for Meds: No Currently Unemployed: No Education: Grade School Difficulty w/ Childcare or Family Care: No Living arrangements: with family Occupation/Education: retired 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 [employer] Gender identity (if verbalized by the patient): Male Sexual Orientation (if Verbalized by the Patient): Straight or Heterosexual Spiritual care concerns: No Agree to blood products: Yes Meds Home Medications and Allergies Home Medications ?Medication ?Instructions ?Recorded ?Confirmed ?Type hydrocodone 10 mg-acetaminophen 1 tablet PO Q6H PRN Pain 02/21/20 11/18/24 History 325 mg tablet tamsulosin 0.4 mg capsule 0.4 mg PO QHS 08/01/20 11/18/24 History blood-glucose meter (Accu-Chek #1 ea 08/04/20 11/18/24 Rx Guide Glucose Meter) lancets (Accu-Chek Multiclix #200 ea 08/04/20 11/18/24 Rx Lancet) blood sugar diagnostic (Accu-Chek #100 ea 11/06/20 11/18/24 Rx Guide test strips) aspirin 81 mg tablet,delayed 81 mg PO DAILY 06/25/22 11/18/24 History release (Aspir-) albuterol sulfate 90 mcg/actuation 2 puff inhalation Q4-6H PRN 03/12/23 11/18/24 History aerosol inhaler Shortness Of Breath oxygen-air delivery systems 04/10/23 11/18/24 History hydroxychloroquine 200 mg tablet 200 mg PO DAILY 06/23/23 11/18/24 History celecoxib 200 mg capsule 200 mg PO DAILY 10/27/23 11/18/24 History fluticasone propionate 50 See Rx Instructions .Route 04/28/24 11/18/24 Rx mcg/actuation nasal .COMPLEX #48 grams spray,suspension pravastatin 20 mg tablet 20 mg PO HS #90 tabs 06/28/24 11/18/24 Rx triamterene 37.5 1 tablet PO QAM #90 tabs 06/28/24 11/18/24 Rx mg-hydrochlorothiazide 25 mg tablet diltiazem HCl 240 mg See Rx Instructions .Route 09/29/24 11/18/24 Rx capsule,extended release 24 hr .COMPLEX #90 caps famotidine 20 mg tablet See Rx Instructions .Route 09/29/24 11/18/24 Rx .COMPLEX #90 tabs metformin 500 mg tablet 500 mg PO BID 10/04/24 11/18/24 History omeprazole 40 mg capsule,delayed 40 mg PO DAILY 10/04/24 11/18/24 History release prednisone 10 mg tablet 10 mg PO DAILY 10/04/24 11/18/24 History cholestyramine (with sugar) 4 gram 4 g PO BID PRN diarrhea 11/18/24 11/18/24 History powder for susp in a packet (Questran) magnesium 200 mg tablet 400 mg PO DAILY 11/18/24 11/18/24 History trazodone 50 mg tablet 100 mg PO HS PRN insomnia 11/18/24 11/18/24 History Allergies Allergy/AdvReac Type Severity Reaction Status Date / Time Iodinated Contrast Media Allergy Severe Hives Verified 11/18/24 12:50 infliximab (From Remicade) AdvReac Intermediate Rash Verified 11/18/24 12:50 Vital Signs Vital Signs - 24 hr 11/20/24 21:10 11/20/24 21:29 11/20/24 21:31 Temperature 97.7 F Pulse Rate 72 74 74 Respiratory Rate 20 18 Blood Pressure 173/65 H Pulse Oximetry 98 98 98 Oxygen Delivery Nasal Cannula Nasal Cannula Oxygen Flow Rate 2 11/21/24 04:55 11/21/24 08:00 11/21/24 10:34 Temperature 97.8 F Pulse Rate 68 68 Respiratory Rate 18 18 Blood Pressure 137/50 L Pulse Oximetry 99 96 96 Oxygen Delivery Nasal Cannula Nasal Cannula Oxygen Flow Rate 1 2 11/21/24 14:26 Temperature 97.7 F Pulse Rate 70 Respiratory Rate 18 Blood Pressure 141/51 H Pulse Oximetry 97 Oxygen Delivery Oxygen Flow Rate Exam 2 Const: General: comfortable and no acute distress HENMT: Face/Nose/Sinus: Normal nares present Eyes: General: appearance normal, both eyes and all related structures Neck: Neck: no JVD Resp: Auscultation: clear to auscultation bilaterally Cardio: Rate: regular rate Rhythm: regular rhythm GI: Inspection: non-distended GI Palp: Yes Soft to palpation and No Tenderness to palpation present (GI) Auscultation: normal bowel sounds Skin: General skin exam: normal color Neuro: Speech: normal speech Extrem: General: normal to inspection Psych: Mental Status: mental status grossly normal Results Labs 11/21/24 04:18 11/21/24 04:18 Labs: Short CBC 11/21/24 Range/Units 04:18 WBC 9.1 (4.5-10.0) K/mm3 Hgb 8.3 L (14.0-18.0) g/dL Hct 28.2 L (42.0-52.0) % Plt Count 165 (150-375) k/mm3 [facility] 11/21/24 04:18 Sodium 135 L Potassium 4.0 Chloride 105 Carbon Dioxide 28 BUN 16 Creatinine 1.35 H Glucose 84 Calcium 9.1
[2024-11-21] MEDS: TAMSULOSIN HCL 0.4 MG CAPSULE PO (21:04)
[2024-11-21] MEDS: VANCOMYCIN 1,500 MG/NS 500 ML 1,500 MG/500 ML BAG 250 MG IVPB (21:49)
[2024-11-22] VITALS (12 sets, daily range): BP systolic 98–175; BP diastolic 37–60; PULSE 70–84; RESP 18–24; TEMP 36.3–36.9; O2SAT 91–99
[2024-11-22 04:48] LABS: Hematocrit 29.4 % (42.0-52.0); Hemoglobin 8.6 g/dL (14.0-18.0); Mean Corpuscular HGB Conc 29.3 g/dl (32-36); Mean Corpuscular Hemoglobin 23.9 pg (26-34); Mean Corpuscular Volume 81.7 fl (80-100); Platelet Count Result 175 k/mm3 (150-375); Red Blood Count 3.60 M/mm3 (4.6-6.20); White Blood Count 10.6 K/mm3 (4.5-10.0)
[2024-11-22 05:01] LABS: Anion Gap 3 mmol/L (4-12); Blood Urea Nitrogen 15 mg/dL (9-20); Calcium 9.0 mg/dL (8.4-10.2); Carbon Dioxide 30 mmol/L (22-30); Chloride 104 mmol/L (98-107); Estimated CRCL calculation 43 ml/min; Estimated Glomerular Filt Rate 51; Glucose 82 mg/dL (65-110); Magnesium 1.9 mg/dL (1.6-2.3); Potassium 4.1 mmol/L (3.4-5.0); Sodium 137 mmol/L (137-145)
[2024-11-22] MEDS: ASPIRIN 81 MG ENTERIC TABLET PO (08:23)
[2024-11-22] MEDS: MAGNESIUM OXIDE 400 MG TABLET PO (08:23)
[2024-11-22] MEDS: SACCHAROMYCES BOULARDII 250 MG CAPSULE PO ×2 (08:23→16:46)
[2024-11-22] MEDS: PANTOPRAZOLE 40 MG TABLET PO (08:23)
[2024-11-22] MEDS: dilTIAZem HCL CD 240 MG CAP.24HR PO (08:23)
[2024-11-22] MEDS: HYDROcodone/acetaminophen (*CRX) 10-325 MG TABLET 1 TAB PO ×2 (08:23→16:45)
[2024-11-22] MEDS: FAMOTIDINE 20 MG TABLET PO (08:23)
[2024-11-22] MEDS: CEFEPIME 2 GM in SODIUM CHLORIDE 0.9% IV 50 ML 100 ML IVPB (08:24)
[2024-11-22] MEDS: LACTATED RINGERS 1,000 ML 150 ML IV CONT (14:14)
--- NOTE | 2024-11-22 14:28 | WPDANESEPPF ---
Anes - Initial Pre Proc Eval Procedure: Operation Date: 11/22/24 15:00 Proposed Procedures p Esophagogastroduodenoscopy - Mike Stack MD Date/Time: 11/22/24 14:28 Surgeon: Kimo Ortiz MD Pre Op Diagnosis: dehydration Patient Data Age: 79 Gender: M Height: 1.7 m Weight: 94.2 kg Last Vital Signs Temp 36.3 C L 11/22/24 14:10 Pulse 79 11/22/24 14:10 Resp 18 11/22/24 14:10 BP 175/60 H 11/22/24 14:10 Pulse Ox 97 11/22/24 14:10 O2 Del Method Nasal Cannula 11/22/24 14:10 O2 Flow Rate 2 11/22/24 14:10 Allergies Allergy/AdvReac Type Severity Reaction Status Date / Time Iodinated Contrast Media Allergy Severe Hives Verified 11/22/24 14:08 infliximab (From Remicade) AdvReac Intermediate Rash Verified 11/22/24 14:08 Home Medications ?Medication ?Instructions ?Recorded ?Confirmed ?Type hydrocodone 10 mg-acetaminophen 1 tablet PO Q6H PRN Pain 02/21/20 11/18/24 History 325 mg tablet tamsulosin 0.4 mg capsule 0.4 mg PO QHS 08/01/20 11/18/24 History blood-glucose meter (Accu-Chek #1 ea 08/04/20 11/18/24 Rx Guide Glucose Meter) lancets (Accu-Chek Multiclix #200 ea 08/04/20 11/18/24 Rx Lancet) blood sugar diagnostic (Accu-Chek #100 ea 11/06/20 11/18/24 Rx Guide test strips) aspirin 81 mg tablet,delayed 81 mg PO DAILY 06/25/22 11/18/24 History release (Aspir-) albuterol sulfate 90 mcg/actuation 2 puff inhalation Q4-6H PRN 03/12/23 11/18/24 History aerosol inhaler Shortness Of Breath oxygen-air delivery systems 04/10/23 11/18/24 History hydroxychloroquine 200 mg tablet 200 mg PO DAILY 06/23/23 11/18/24 History celecoxib 200 mg capsule 200 mg PO DAILY 10/27/23 11/18/24 History fluticasone propionate 50 See Rx Instructions .Route 04/28/24 11/18/24 Rx mcg/actuation nasal .COMPLEX #48 grams spray,suspension pravastatin 20 mg tablet 20 mg PO HS #90 tabs 06/28/24 11/18/24 Rx triamterene 37.5 1 tablet PO QAM #90 tabs 06/28/24 11/18/24 Rx mg-hydrochlorothiazide 25 mg tablet diltiazem HCl 240 mg See Rx Instructions .Route 09/29/24 11/18/24 Rx capsule,extended release 24 hr .COMPLEX #90 caps famotidine 20 mg tablet See Rx Instructions .Route 09/29/24 11/18/24 Rx .COMPLEX #90 tabs metformin 500 mg tablet 500 mg PO BID 10/04/24 11/18/24 History omeprazole 40 mg capsule,delayed 40 mg PO DAILY 10/04/24 11/18/24 History release prednisone 10 mg tablet 10 mg PO DAILY 10/04/24 11/18/24 History cholestyramine (with sugar) 4 gram 4 g PO BID PRN diarrhea 11/18/24 11/18/24 History powder for susp in a packet (Questran) magnesium 200 mg tablet 400 mg PO DAILY 11/18/24 11/18/24 History trazodone 50 mg tablet 100 mg PO HS PRN insomnia 11/18/24 11/18/24 History Laboratory Tests 11/21/24 11/22/24 11/22/24 18:03 03:38 14:08 WBC 10.6 H K/mm3 (4.5-10.0) RBC 3.60 L M/mm3 (4.6-6.20) Hgb 8.6 L g/dL (14.0-18.0) Hct 29.4 L % (42.0-52.0) MCV 81.7 fl (80-100) MCH 23.9 L pg (26-34) MCHC 29.3 L g/dl (32-36) RDW 17.2 H % (11.5-14.5) Plt Count 175 k/mm3 (150-375) MPV 10.3 fl (7.4-10.4) Sodium 137 mmol/L (137-145) Potassium 4.1 mmol/L (3.4-5.0) Chloride 104 mmol/L (98-107) Carbon Dioxide 30 mmol/L (22-30) Anion Gap 3 L mmol/L (4-12) BUN 15 mg/dL (9-20) Creatinine 1.35 H mg/dL (0.7-1.3) Estim Creat Clear Calc 43 ml/min Estimated GFR 51 L (59 - ) Glucose 82 mg/dL (65-110) POC Capillary Glucose 80 mg/dl (65-105) Calcium 9.0 mg/dL (8.4-10.2) Magnesium 1.9 mg/dL (1.6-2.3) Vancomycin Trough 7.3 L ug/mL (10.0-20.0) Patient hx anesthesia problems: none Family hx anesthesia problems: none Results Review: All pre-operative results and documents have been reviewed as part of the pre-operative evaluation. 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 Colon polyp Lung cancer Shingles Kidney stones GERD (gastroesophageal reflux disease) History of rectal polyps Gastrointestinal ulcer Diverticulosis Emphysema of lung Cataracts, bilateral Obesity Benign essential hypertension Benign prostatic hyperplasia with lower urinary tract symptoms Chronic low back pain Chronic obstructive pulmonary disease, unspecified Elevated LFTs Follicular lymphoma grade II, unspecified site Lung nodule Mixed hyperlipidemia Obstructive sleep apnea (adult) (pediatric) Rheumatoid arthritis involving multiple sites Splenomegaly Surgical History Surgical History Hx of cholecystectomy History of right knee joint replacement Hx of cataract surgery History of back surgery Family History Family History Mother Family history of osteoarthritis Family history of congestive heart failure, Onset Age: 90 Family history of malignant neoplasm of breast in first degree relative Sibling Carcinoma of colon, Onset Age: 66 Family history of lupus erythematosus, Onset Age: 21 Family history of primary malignant neoplasm of liver Father Acute myocardial infarction Hypertension, Onset Age: 68 Family history of cardiovascular disease, Onset Age: 68 Social History Social History Social History: Code status: Full code Healthcare power of assistant district attorney: Dora Cuadra (daughter) Smoking packs per day: 2 Smoking cigarettes per day: 40.0 Years smoked: 50 Smoking pack-years: 100.00 Smoking status: Former smoker Tobacco type: cigarettes Second hand tobacco smoke exposure: No Smoking end date: 07/07/99 Alcohol intake: current Substance use: never Substance use type: does not use Do You Feel Safe in your Home?: Yes Lack of Transportation: No Lack of Food: Never True Current Housing: I Have Housing Concerned About Future Housing: No Difficulty Paying Gas/Electric Bills: No Difficulty Paying for Meds: No Currently Unemployed: No Education: Grade School Difficulty w/ Childcare or Family Care: No Living arrangements: with family Occupation/Education: retired 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 Gender identity (if verbalized by the patient): Male Sexual Orientation (if Verbalized by the Patient): Straight or Heterosexual Spiritual care concerns: No Agree to blood products: Yes Anes - Eval Final PreProcedure Day of Procedure 11/22/24 14:28 Patient weight: obese Heart: regular rate and rhythm Lungs: clear to auscultation Airway: Mallampati scale class II Neurological: alert and oriented Last oral intake: >/= 8 hours ASA classification: IV Emergent: no Anesthetic plan: proceed Anesthesia type and monitoring: general GIVS and standard monitoring Results Review: All pre-operative results and documents have been reviewed as part of the pre-operative evaluation. Informed Consent: The patient's anesthetic plan and its attendant risks and benefits were discussed with the patient/family/POA. Questions were solicited and answers provided to the satisfaction of the patient/family/POA.
--- NOTE | 2024-11-22 16:01 | PC.NURSE ---
pt returned from GI lab
[2024-11-22] MEDS: SALINE 0.65% NAS SOLN 44 ML BTL 1 SPRAY NASAL (16:46)
--- NOTE | 2024-11-22 17:20 | PM.IMPN ---
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: Code(s): K58.2 - Mixed irritable bowel syndrome Status: Acute (6) Diarrhea: Qualifiers: Diarrhea type: unspecified type Qualified Code(s): R19.7 - Diarrhea, unspecified Code(s): R19.7 - Diarrhea, unspecified Status: Acute (7) Chronic kidney disease, stage 3b: Code(s): N18.32 - Chronic kidney disease, stage 3b Status: Acute (8) Benign essential hypertension: Code(s): I10 - Essential (primary) hypertension Status: Acute (9) Chronic hypoxemic respiratory failure: Code(s): J96.11 - Chronic respiratory failure with hypoxia Status: Acute (10) Rheumatoid arthritis: Qualifiers: Rheumatoid arthritis location: multiple sites Rheumatoid factor presence: with rheumatoid factor Qualified Code(s): M05.79 - Rheumatoid arthritis with rheumatoid factor of multiple sites without organ or systems involvement Code(s): M06.9 - Rheumatoid arthritis, unspecified Status: Acute (11) Type 2 diabetes mellitus: Qualifiers: Diabetes mellitus penitentiary insulin use: without penitentiary use Diabetes mellitus complication status: without complication Qualified Code(s): E11.9 - Type 2 diabetes mellitus without complications Code(s): E11.9 - Type 2 diabetes mellitus without complications Status: Acute Plan Patient presented with transient hypotension most likely due to hypovolemia in setting of mild acute on chronic anemia. Patient's anemia is likely due to his history of CLL with possible component GI losses given the is on chronic NSAID therapy with Celebrex. Will hold the patient's home Celebrex and repeat CBC in a.m.. I anticipate the patient hemoglobin to drop due to delusional factors that he did receive 30 mL/kilos fluid bolus of isotonic fluids. Will type and crossmatch patient in anticipation for likely need for blood transfusion. The patient did have some tachycardia and mild tachypnea on initial presentation to the ER but no white count or fever. I suspect patient's tachycardia was more due to volume depletion in likely due to infection. Patient did receive empiric antibiotic therapy with cefepime and vancomycin but no identifying couple source of infection was noted so antibiotics will be discontinued. The patient's imaging did demonstrate chronic changes in his lung consistent with scar formation. Will increase the patient's Protonix to 40 mg p.o. b.i.d.. Patient did have some lactic acidosis that was persistently elevated after fluid administration. I suspect patient's IV fluid boluses were not completed but had the patient's repeat lactic acid was drawn. Also the patient is on metformin and does have an indeterminate liver lesion as a could be adding a component to lactic acidosis. Will give the patient 1 more L IV fluids overnight and re-evaluate lactic acid in fluid status in a.m.. Will hold hydroxychloroquine into lactic acidosis has resolved and until anemia improves. Anemia could be also in part due to bone marrow suppression with hydroxychloroquine The patient does have history of diarrhea alternating with constipation. He reported that he had had 4-5 weeks of more persistent diarrhea but at the time my evaluation he stated that he had to strain to have a bowel movement today once he arrived to the medical floor. Will cancel C diff PCR and stool culture. Will still collect stool occult blood once patient produces stool specimen. Will hold patient's home Celebrex. Will continue patient's home famotidine in addition to Protonix. The patient's renal function remained stable. Will repeat electrolyte panel in a.m.. Patient does have type 2 diabetes mellitus will hold metformin while hospitalized specially in the setting of acute lactic acidosis. He is currently euglycemic. patient with history of lung CA, CLL, COPD, GERD and CKD presented with c/o shortness of breath, is found to have low hgb of 6.7, patient does not have any history of rectal bleeding, etiology is multifactorial, possible 2/2 CLL, CKD and or rectal bleeding, ordered stool hemoccult which is negative, patient was given 1 unit PRBC, stats feels better, patient was seen by his oncologist Dr. Alex for further evaluation may have iron deficiency anemia, and possibly due to CKD, patient is given iron infusion and started on oral iron, and further work up is in progress including Epogen levels, one of the blood culture bottle is growing, gram positive cocci, antibiotics were resumed and will give probiotics to the patient, however both blood culture bottles are growing staph epi discuss with clinical pharmacist suspect contamination, will stop the antibiotics, patient is seen by GI and is scheduled to have EGD, will monitor. will have PT/OT evaluate the patient. patient family is present. Subjective Date/time seen: 11/22/24 17:20 Interval history: Shortness of breath and low hemoglobin Narrative: 79-year-old male with a past medical history of previously treated lung cancer, CLL, COPD, GERD, chronic kidney disease, BPH and essential hypertension who presented to the ER due to shortness of breath and low hemoglobin on outpatient labs. The patient reports that he is on 1 L of oxygen at rest all the time and 2 L with activity. He also wears a CPAP at night. He reports that he has been having some episodes of lightheadedness with position changes that have been ongoing for some time but worsening over the last several weeks. He reports he is always short of breath with exertion but denies any chest pain. His shortness of breath is slightly worse than at baseline. He denies any lower extremity pain. He has not noticed any hematochezia or melena. He has been having increased loose stools over the last 4-5 weeks but states that today he was actually having trouble and had to strain to go to the bathroom once he arrived at the hospital. He denies any hematochezia or melena. He has not had any cough or congestion. He denies any recent ill contacts. He has not noticed any hematuria. patient with history of lung CA, CLL, COPD, GERD and CKD presented with c/o shortness of breath, is found to have low hgb of 6.7, patient does not have any history of rectal bleeding, etiology is multifactorial, possible 2/2 CLL, CKD and or rectal bleeding, ordered stool hemoccult which is negative, patient was given 1 unit PRBC, stats feels better, patient was seen by his oncologist Dr. Alex for further evaluation may have iron deficiency anemia, and possibly due to CKD, patient is given iron infusion and started on oral iron, and further work up is in progress including Epogen levels, one of the blood culture bottle is growing, gram positive cocci, antibiotics were resumed and will give probiotics to the patient, however both blood culture bottles are growing staph epi discuss with clinical pharmacist suspect contamination, will stop the antibiotics, patient is seen by GI and is scheduled to have EGD, will monitor. will have PT/OT evaluate the patient. patient family is present. Review of Systems Review of Systems: 12 systems were reviewed with pertinent positives and negatives per HPI. Except as documented in the HPI, all other systems were reviewed and are negative. 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 Exam Narrative: Patient is comfortable, NAD HEENT: eyes are clear and none icteric LUNGS:CTA HEART: RR S1S2 ABD: BS+, Soft and nontender Lower extremities: no edema SKIN: nonjaundiced Neuro: grossly intact. Objective Data Vital Signs Vital Signs: Vital Signs - 24 hr 11/21/24 19:59 11/21/24 21:00 11/21/24 22:50 Temperature 36.5 C Pulse Rate 75 74 Respiratory Rate 20 Blood Pressure 156/60 H Pulse Oximetry 100 100 96 Oxygen Delivery Nasal Cannula Autopap Oxygen Flow Rate 2 11/21/24 22:50 11/22/24 05:40 11/22/24 08:00 Temperature 36.9 C Pulse Rate 77 77 Respiratory Rate 18 18 Blood Pressure 159/55 H Pulse Oximetry 96 99 99 Oxygen Delivery Nasal Cannula Nasal Cannula Oxygen Flow Rate 1 2 11/22/24 11:04 11/22/24 13:29 11/22/24 13:55 Temperature 36.5 C Pulse Rate 70 Respiratory Rate 20 Blood Pressure 124/58 L Pulse Oximetry 99 Oxygen Delivery Nasal Cannula Nasal Cannula Oxygen Flow Rate 2 2 11/22/24 14:10 11/22/24 15:26 11/22/24 15:36 Temperature 36.3 C L Pulse Rate 79 70 77 Respiratory Rate 18 20 24 H Blood Pressure 175/60 H 98/41 L 106/37 L Pulse Oximetry 97 98 98 Oxygen Delivery Nasal Cannula Nasal Cannula Nasal Cannula Oxygen Flow Rate 2 2 2 11/22/24 15:41 Temperature Pulse Rate 72 Respiratory Rate 22 H Blood Pressure 124/59 L Pulse Oximetry 98 Oxygen Delivery Nasal Cannula Oxygen Flow Rate 2 Intake/Output Intake/Output: Intake & Output 11/19/24 11/20/24 11/21/2411/22/25 23:59 23:59 23:59 23:59 Intake Total 1253.5 2948.5 980 690 Output Total 1000 1350 400 Balance 253.5 2948.5 -370 290 Meds/Results Medications: Active Medications Generic Name Dose Route Start Last Admin Trade Name Freq PRN Reason Stop Dose Admin Acetaminophen 650 mg 11/19/24 08:37 11/19/24 11:18 Acetaminophen 325 Mg Tablet PO 650 mg Q6H PRN Administration Mild Pain (1-3) or Fever Hydrocodone Bitart/Acetaminophen 1 tab 11/18/24 23:43 11/22/24 16:45 Hydrocodone/Acetaminophen (*Crx) 10-325 Mg Tablet PO 1 tab Q6H PRN Administration Pain Rated 4-6 Aspirin 81 mg 11/19/24 09:00 11/22/24 08:23 Aspirin 81 Mg Enteric Tablet PO 81 mg DAILY ELIAS Administration Cholestyramine Resin 4 gm 11/19/24 06:39 Cholestyramine (W/ Sugar) 4 Gm Powd.Pack PO BID PRN diarrhea Diltiazem HCl 240 mg 11/19/24 09:00 11/22/24 08:23 Diltiazem Hcl Cd 240 Mg Cap.24hr PO 240 mg DAILY ELIAS Administration Famotidine 20 mg 11/19/24 09:00 11/22/24 08:23 Famotidine 20 Mg Tablet PO 20 mg DAILY ELIAS Administration Fluticasone Propionate 2 spray 11/19/24 06:40 Fluticasone Propionate 0.05% Na Spr 16 Gm Btl (*Bkc) NASAL DAILY PRN CONGESTION Magnesium Oxide 400 mg 11/19/24 09:00 11/22/24 08:23 Magnesium Oxide 400 Mg Tablet PO 400 mg DAILY ELIAS Administration Pantoprazole Sodium 40 mg 11/23/24 09:00 Pantoprazole 40 Mg Tablet PO QAM ELIAS Prednisone 10 mg 11/19/24 09:00 11/22/24 16:46 Prednisone 10 Mg Tablet PO 10 mg DAILY ELIAS Administration Saccharomyces Boulardii 250 mg 11/20/24 17:00 11/22/24 16:46 Saccharomyces Boulardii 250 Mg Capsule PO 250 mg TID ELIAS Administration Sodium Chloride 1 spray 11/22/24 12:00 11/22/24 16:46 Saline 0.65% Matias Soln 44 Ml Btl NASAL 1 spray Q6HR PRN Administration Congestion Tamsulosin HCl 0.4 mg 11/19/24 21:00 11/21/24 21:04 Tamsulosin Hcl 0.4 Mg Capsule PO 0.4 mg QHS ELIAS Administration Trazodone HCl 100 mg 11/19/24 06:39 Trazodone Hcl 50 Mg Tablet PO HS PRN insomnia Radiology Results: ITS Impressions Chest X-Ray 11/18/24 14:28 IMPRESSION: Bilateral upper lobe scarring (as detailed above) without focal infiltrate. Chest/Abdomen/Pelvis CT 11/18/24 14:54 IMPRESSION: No significant change in the chest, abdomen or pelvis from previous examination dated 08/02/2024 with the exception of increase in size of an indeterminate focus of increased attenuation within segment 8 of the liver, possibly a regenerative nodule. Nonacute findings include: Nonobstructing 2 mm calculus within the interpolar region of the left kidney. Colonic diverticulosis spanning from the hepatic flexure to the rectum without surrounding inflammatory change. Splenomegaly. Bilateral upper lobe scar formation, consistent with patient's history. Labs Labs: Laboratory Results - last 24 hr 11/21/24 11/22/24 11/22/24 18:03 03:38 14:08 WBC 10.6 H RBC 3.60 L Hgb 8.6 L Hct 29.4 L MCV 81.7 MCH 23.9 L MCHC 29.3 L RDW 17.2 H Plt Count 175 MPV 10.3 Sodium 137 Potassium 4.1 Chloride 104 Carbon Dioxide 30 Anion Gap 3 L BUN 15 Creatinine 1.35 H Estim Creat Clear Calc 43 Estimated GFR 51 L Glucose 82 POC Capillary Glucose 80 Calcium 9.0 Magnesium 1.9 Vancomycin Trough 7.3 L Quality VTE Prophylaxis VTE prophylaxis: mechanical ordered (SCDs)
[2024-11-22] MEDS: TAMSULOSIN HCL 0.4 MG CAPSULE PO (20:28)
[2024-11-23] VITALS: BP 168/58; PULSE 64; RESP 24; TEMP 36.4; O2SAT 98
[2024-11-23 05:24] LABS: Hematocrit 31.3 % (42.0-52.0); Hemoglobin 9.2 g/dL (14.0-18.0); Mean Corpuscular HGB Conc 29.4 g/dl (32-36); Mean Corpuscular Hemoglobin 23.9 pg (26-34); Mean Corpuscular Volume 81.3 fl (80-100); Platelet Count Result 180 k/mm3 (150-375); Red Blood Count 3.85 M/mm3 (4.6-6.20); White Blood Count 11.1 K/mm3 (4.5-10.0)
[2024-11-23 05:36] LABS: Anion Gap 6 mmol/L (4-12); Blood Urea Nitrogen 15 mg/dL (9-20); Calcium 9.2 mg/dL (8.4-10.2); Carbon Dioxide 26 mmol/L (22-30); Chloride 103 mmol/L (98-107); Estimated CRCL calculation 44 ml/min; Estimated Glomerular Filt Rate 53; Glucose 112 mg/dL (65-110); Magnesium 2.0 mg/dL (1.6-2.3); Potassium 4.3 mmol/L (3.4-5.0); Sodium 135 mmol/L (137-145)
[2024-11-23 08:00] VITALS: BP 117/58; PULSE 66; RESP 20; TEMP 36.4; O2SAT 97; O2SAT 98
[2024-11-23] MEDS: ASPIRIN 81 MG ENTERIC TABLET PO (08:46)
[2024-11-23] MEDS: MAGNESIUM OXIDE 400 MG TABLET PO (08:46)
[2024-11-23] MEDS: PANTOPRAZOLE 40 MG TABLET PO (08:46)
[2024-11-23] MEDS: FAMOTIDINE 20 MG TABLET PO (08:46)
[2024-11-23] MEDS: dilTIAZem HCL CD 240 MG CAP.24HR PO (08:46)
[2024-11-23] MEDS: SACCHAROMYCES BOULARDII 250 MG CAPSULE PO ×2 (08:47→13:11)
[2024-11-23] MEDS: HYDROcodone/acetaminophen (*CRX) 10-325 MG TABLET 1 TAB PO (08:50)
--- NOTE | 2024-11-23 12:11 | PM.DS ---
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: Code(s): K58.2 - Mixed irritable bowel syndrome Status: Acute (6) Diarrhea: Qualifiers: Diarrhea type: unspecified type Qualified Code(s): R19.7 - Diarrhea, unspecified Code(s): R19.7 - Diarrhea, unspecified Status: Acute (7) Chronic kidney disease, stage 3b: Code(s): N18.32 - Chronic kidney disease, stage 3b Status: Acute (8) Benign essential hypertension: Code(s): I10 - Essential (primary) hypertension Status: Acute (9) Chronic hypoxemic respiratory failure: Code(s): J96.11 - Chronic respiratory failure with hypoxia Status: Acute (10) Rheumatoid arthritis: Qualifiers: Rheumatoid arthritis location: multiple sites Rheumatoid factor presence: with rheumatoid factor Qualified Code(s): M05.79 - Rheumatoid arthritis with rheumatoid factor of multiple sites without organ or systems involvement Code(s): M06.9 - Rheumatoid arthritis, unspecified Status: Acute (11) Type 2 diabetes mellitus: Qualifiers: Diabetes mellitus residential insulin use: without residential use Diabetes mellitus complication status: without complication Qualified Code(s): E11.9 - Type 2 diabetes mellitus without complications Code(s): E11.9 - Type 2 diabetes mellitus without complications Status: Acute Plan Patient presented with transient hypotension most likely due to hypovolemia in setting of mild acute on chronic anemia. Patient's anemia is likely due to his history of CLL with possible component GI losses given the is on chronic NSAID therapy with Celebrex. Will hold the patient's home Celebrex and repeat CBC in a.m.. I anticipate the patient hemoglobin to drop due to delusional factors that he did receive 30 mL/kilos fluid bolus of isotonic fluids. Will type and crossmatch patient in anticipation for likely need for blood transfusion. The patient did have some tachycardia and mild tachypnea on initial presentation to the ER but no white count or fever. I suspect patient's tachycardia was more due to volume depletion in likely due to infection. Patient did receive empiric antibiotic therapy with cefepime and vancomycin but no identifying couple source of infection was noted so antibiotics will be discontinued. The patient's imaging did demonstrate chronic changes in his lung consistent with scar formation. Will increase the patient's Protonix to 40 mg p.o. b.i.d.. Patient did have some lactic acidosis that was persistently elevated after fluid administration. I suspect patient's IV fluid boluses were not completed but had the patient's repeat lactic acid was drawn. Also the patient is on metformin and does have an indeterminate liver lesion as a could be adding a component to lactic acidosis. Will give the patient 1 more L IV fluids overnight and re-evaluate lactic acid in fluid status in a.m.. Will hold hydroxychloroquine into lactic acidosis has resolved and until anemia improves. Anemia could be also in part due to bone marrow suppression with hydroxychloroquine The patient does have history of diarrhea alternating with constipation. He reported that he had had 4-5 weeks of more persistent diarrhea but at the time my evaluation he stated that he had to strain to have a bowel movement today once he arrived to the medical floor. Will cancel C diff PCR and stool culture. Will still collect stool occult blood once patient produces stool specimen. Will hold patient's home Celebrex. Will continue patient's home famotidine in addition to Protonix. The patient's renal function remained stable. Will repeat electrolyte panel in a.m.. Patient does have type 2 diabetes mellitus will hold metformin while hospitalized specially in the setting of acute lactic acidosis. He is currently euglycemic. patient with history of lung CA, CLL, COPD, GERD and CKD presented with c/o shortness of breath, is found to have low hgb of 6.7, patient does not have any history of rectal bleeding, etiology is multifactorial, possible 2/2 CLL, CKD and or rectal bleeding, ordered stool hemoccult which is negative, patient was given 1 unit PRBC, stats feels better, patient was seen by his oncologist Dr. Alex for further evaluation may have iron deficiency anemia, and possibly due to CKD, patient is given iron infusion and started on oral iron, and further work up is in progress including Epogen levels, one of the blood culture bottle is growing, gram positive cocci, antibiotics were resumed and will give probiotics to the patient, however both blood culture bottles are growing staph epi discuss with clinical pharmacist suspect contamination, will stop the antibiotics, patient is seen by GI and is scheduled to have EGD, will monitor. will have PT/OT evaluate the patient. patient family is present. DS: Summary Hospital Course Hospital Course: patient with history of lung CA, CLL, COPD, GERD and CKD presented with c/o shortness of breath, is found to have low hgb of 6.7, patient does not have any history of rectal bleeding, etiology is multifactorial, possible 2/2 CLL, CKD and or rectal bleeding, ordered stool hemoccult which is negative, patient was given 1 unit PRBC, stats feels better, patient was seen by his oncologist Dr. Alex for further evaluation may have iron deficiency anemia, and possibly due to CKD, patient is given iron infusion and started on oral iron, and further work up is in progress including Epogen levels, one of the blood culture bottle is growing, gram positive cocci, antibiotics were resumed and will give probiotics to the patient, however both blood culture bottles are growing staph epi discuss with clinical pharmacist suspect contamination, will stop the antibiotics, patient is seen by GI and is scheduled to have EGD, EGD did not reveal any acute source of bleeding, patient remains clinically stable, will discharge patient today Time Spent with Patient Time attestation: Total time spent providing and/or coordinating discharge services: Exam Narrative: Patient is comfortable, NAD HEENT: eyes are clear and none icteric LUNGS:CTA HEART: RR S1S2 ABD: BS+, Soft and nontender Lower extremities: no edema SKIN: nonjaundiced Neuro: grossly intact. DS: Data Data Completed and Pending Labs on day of discharge: Labs from last 24 hours 11/23/24 11/22/24 11/19/24 04:17 14:08 17:13 WBC 11.1 H RBC 3.85 L Hgb 9.2 L Hct 31.3 L MCV 81.3 MCH 23.9 L MCHC 29.4 L RDW 17.6 H Plt Count 180 MPV 9.8 Sodium 135 L Potassium 4.3 Chloride 103 Carbon Dioxide 26 Anion Gap 6 BUN 15 Creatinine 1.31 H Estim Creat Clear Calc 44 Estimated GFR 53 L Glucose 112 H POC Capillary Glucose 80 Calcium 9.2 Magnesium 2.0 Erythropoietin 62.2 H Preliminary micro results at discharge 11/18/24 13:44 Blood Culture - Preliminary Blood Discharge Plan Discharge Attending physician on discharge: Kimo Ortiz Consulting providers: Harvey Alex; Mike Stack; Lico Perez; Carley Owens; Bernadette Ann; Donna Edmonds; Brandon Pemberton; Maureen Oquendo Discharging Clinician: Greer Valerio Patient Disposition: Home Activity: as tolerated Diet: heart healthy Discharge Instructions: patient to follow up with his oncologist as scheduled and follow up with his primary care provider as soon as possible, patient is instructed if any symptoms worsen to go to nearest ER. Patient Instructions: Antibiotic Form Patient Language: Polish Stand Alone Forms: General Discharge Information Follow-up/Referrals: Harvey Alex MD [Physician, Hematology] Valeriy Marte APRN [Primary Care Provider, Internal Medicine] Discharge Medications: New pantoprazole 40 mg Tablet,Delayed Release (Dr/Ec) 40 mg PO QAM Qty: 30 0RF Continued hydrocodone-acetaminophen 10-325 mg tablet 1 tablet PO Q6H PRN (Reason: Pain) tamsulosin 0.4 mg capsule 0.4 mg PO QHS aspirin [Aspir-81] 81 mg tablet,delayed release (DR/EC) 81 mg PO DAILY (DME) oxygen-air delivery systems Device See Rx Instructions .Route Patient Comments: pt states he is on 2 liters every night. Rx Instructions: As directed hydroxychloroquine 200 mg tablet 200 mg PO DAILY fluticasone propionate 50 mcg/actuation spray,suspension See Rx Instructions .ROUTE .COMPLEX Qty: 48 3RF Dose Instruction: USE 2 SPRAYS IN EACH NOSTRIL DAILY NEEDED FOR CONGESTION Rx Instructions: USE 2 SPRAYS IN EACH NOSTRIL DAILY NEEDED FOR CONGESTION albuterol sulfate 90 mcg/actuation HFA aerosol inhaler 2 puff INHALATION Q4-6H PRN (Reason: Shortness Of Breath) celecoxib 200 mg capsule 200 mg PO DAILY prednisone 10 mg tablet 10 mg PO DAILY metformin 500 mg tablet 500 mg PO BID omeprazole 40 mg capsule,delayed release(DR/EC) 40 mg PO DAILY magnesium 200 mg tablet 400 mg PO DAILY trazodone 50 mg tablet 100 mg PO HS PRN (Reason: insomnia) cholestyramine (with sugar) [Questran] 4 gram powder in packet 4 g PO BID PRN (Reason: diarrhea) Rx Instructions: administer w/meal; avoid other meds within 1hr before or 4-6hr after dose (DME) blood-glucose meter [Accu-Chek Guide Glucose Meter] Misc See Rx Instructions .Route Qty: 1 0RF Rx Instructions: test 2 times a day. (DME) lancets [Accu-Chek Multiclix Lancet] Misc See Rx Instructions .Route Qty: 200 1RF Rx Instructions: test 2 times a day (DME) Accu-Chek Guide test strips Strip See Rx Instructions .Route Qty: 100 2RF Rx Instructions: test 2 time a day famotidine 20 mg tablet See Rx Instructions .ROUTE .COMPLEX Qty: 90 3RF Dose Instruction: TAKE 1 TABLET EVERY DAY Rx Instructions: TAKE 1 TABLET EVERY DAY diltiazem HCl 240 mg capsule,extended release 24hr See Rx Instructions .ROUTE .COMPLEX Qty: 90 3RF Dose Instruction: TAKE 1 CAPSULE EVERY DAY Rx Instructions: TAKE 1 CAPSULE EVERY DAY No Action pravastatin 20 mg tablet See Rx Instructions .ROUTE .COMPLEX Qty: 90 3RF Dose Instruction: TAKE 1 TABLET AT BEDTIME Rx Instructions: TAKE 1 TABLET AT BEDTIME triamterene-hydrochlorothiazid 37.5-25 mg tablet See Rx Instructions .ROUTE .COMPLEX Qty: 90 3RF Dose Instruction: TAKE 1 TABLET EVERY MORNING Rx Instructions: TAKE 1 TABLET EVERY MORNING Date of admission: 11/18/24 18:23 Primary Care Provider: Valeriy Marte Admitting Provider: Kimo Ortiz Attending physician on admission: Greer Valerio Condition: Stable
== END 2024-11-23 14:05 | disposition home or self-care (01) | DRG 812 ==
LOC: ANHED 17:51 → ANH3MEDSUR 19:25 → ANH2MED 19:53
PROVIDERS: Internal Medicine; Internal Medicine Gastroenterology; Internal Medicine Hematology & Oncology; Nurse Practitioner Adult Health; Registered Nurse; Admitting Provider General Practice; Emergency Provider Emergency Medicine; PCP Nurse Practitioner; Visit Provider Family Medicine
PROC: 0DJ08ZZ Inspection of Upper Intestinal Tract, Via Natural or Artificial Opening Endoscopic (ICD-10-PCS; principal; 2024-11-22 15:00)
DX: D50.9 Iron deficiency anemia, unspecified (principal); J96.11 Chronic respiratory failure with hypoxia; E87.21 Acute metabolic acidosis; E86.1 Hypovolemia; D59.9 Acquired hemolytic anemia, unspecified; I95.89 Other hypotension; E86.0 Dehydration; E11.22 Type 2 diabetes mellitus with diabetic chronic kidney disease; N18.32 Chronic kidney disease, stage 3b; D63.1 Anemia in chronic kidney disease; B95.7 Other staphylococcus as the cause of diseases classified elsewhere; K58.2 Mixed irritable bowel syndrome; M06.9 Rheumatoid arthritis, unspecified; K21.9 Gastro-esophageal reflux disease without esophagitis; K55.20 Angiodysplasia of colon without hemorrhage; N40.0 Benign prostatic hyperplasia without lower urinary tract symptoms; J44.9 Chronic obstructive pulmonary disease, unspecified; E11.42 Type 2 diabetes mellitus with diabetic polyneuropathy; K76.9 Liver disease, unspecified; Z85.72 Personal history of non-Hodgkin lymphomas; Z85.118 Personal history of other malignant neoplasm of bronchus and lung; Z79.1 Long term (current) use of non-steroidal anti-inflammatories (NSAID); E66.9 Obesity, unspecified; Z68.32 Body mass index [BMI] 32.0-32.9, adult; Z79.84 Long term (current) use of oral hypoglycemic drugs
CPT/HCPCS: 36415; 36430; 71045; 71250; 74176; 80048; 80053; 80202; 81003; 82274; 82607; 82668; 82728; 82746; 82948; 83540; 83550; 83605; 83615; 83735; 83880; 84100; 85014; 85018; 85025; 85027; 85610; 85730; 86140; 86850; 86880; 86900; 86901; 86923; 87040; 87637; 87641; 93005; 96365; 96366; 96368; 97161; 97165; 99291; A9270; J0692; J1756; J2003; J2704; J3373; J7050; J7120; J7512; P9016

== ENCOUNTER 2025-02-08 10:00 | Outpatient (CLI) | payer MEDICARE, SELFPAY ==
--- OUTSIDE RECORDS SUMMARY | 2025-02-07 10:00 | XMS_ITS | Encounter Summary ---
Author Organization [facility] Address [address] [place] [address] Phone Care Team Providers Care Component Lab Tech Name Role Phone Zia Mercedes MD Unavailable [phone] Arpit Han MD PhD Unavailable [phone] Zia Mercedes MD Unavailable [phone] Harvey Alex MD Unavailable [phone] Dre Zavaleta DO Primary Care Provider [phone] Reason for Referral * Diagnostic Imaging (Routine) - Authorized Specialty Diagnoses / Procedures Referred By Contac t Referred To Contact Diagnoses Rheumatoid arthritis involving multiple sites, unspecified whether rheumatoid factor present (HCC) Osteoporosis, unspecified osteoporosis type, unspecified pathological fracture presence Procedures X-ray lumbar spine 2 or 3 views Lenora Farias MD [address] [place] [address] Phone: tel: fax: [address] [phone] Referral ID Status Reason Start Date Expiration Date V isits Requested Visits Authorized [id number] Authorized 02/07/2025 03/09/2026 1 1 EN ROLLER * Diagnostic Imaging (Routine) - Authorized Specialty Diagnoses / Procedures Referred By Contac t Referred To Contact Diagnoses Osteoporosis, unspecified osteoporosis type, unspecified pathological fracture presence Procedures Dexa Axial Skeleton Bone Density 1 or 2 Site Lenora Farias MD [address] [place] [address] Phone: tel: fax: [address] [phone] Referral ID Status Reason Start Date Expiration Date V isits Requested Visits Authorized [id number] Authorized 02/07/2025 03/09/2026 1 1 EN ROLLER * Diagnostic Imaging (Routine) - Authorized Specialty Diagnoses / Procedures Referred By Contac t Referred To Contact Diagnoses Rheumatoid arthritis involving multiple sites, unspecified whether rheumatoid factor present (HCC) Procedures XR Foot Left 3 or More Views Lenora Farias MD [address] [place] [address] Phone: tel: fax: [facility] Referral ID Status Reason Start Date Expiration Date V isits Requested Visits Authorized [id number] Authorized 02/07/2025 03/09/2026 1 1 EN ROLLER * Diagnostic Imaging (Routine) - Authorized Specialty Diagnoses / Procedures Referred By Contac t Referred To Contact Diagnoses Rheumatoid arthritis involving multiple sites, unspecified whether rheumatoid factor present (HCC) Procedures XR Shoulder Left 2 or More Views Lenora Farias MD [address] [place] [address] Phone: tel: fax: [address] [phone] Referral ID Status Reason Start Date Expiration Date V isits Requested Visits Authorized [id number] Authorized 02/07/2025 03/09/2026 1 1 EN ROLLER * Diagnostic Imaging (Routine) - Authorized Specialty Diagnoses / Procedures Referred By Contac t Referred To Contact Diagnoses Rheumatoid arthritis involving multiple sites, unspecified whether rheumatoid factor present (HCC) Procedures XR Elbow Right 3 or More Views Lenora Farias MD [address] [place] [address] Phone: tel: fax: [address] [phone] Referral ID Status Reason Start Date Expiration Date V isits Requested Visits Authorized [id number] Authorized 02/07/2025 03/09/2026 1 1 EN ROLLER * Diagnostic Imaging (Routine) - Authorized Specialty Diagnoses / Procedures Referred By Contac t Referred To Contact Diagnoses Rheumatoid arthritis involving multiple sites, unspecified whether rheumatoid factor present (HCC) Procedures XR Hand Right 3 or More Views Lenora Farias MD [address] [place] [address] Phone: tel: fax: [address] [phone] Referral ID Status Reason Start Date Expiration Date V isits Requested Visits Authorized [id number] Authorized 02/07/2025 03/09/2026 1 1 EN ROLLER * Diagnostic Imaging (Routine) - Authorized Specialty Diagnoses / Procedures Referred By Contac t Referred To Contact Diagnoses Rheumatoid arthritis involving multiple sites, unspecified whether rheumatoid factor present (HCC) Procedures XR Hand Left 3 or More Views Lenora Farias MD [address] [place] [address] Phone: tel: fax: [address] [phone] Referral ID Status Reason Start Date Expiration Date V isits Requested Visits Authorized [id number] Authorized 02/07/2025 03/09/2026 1 1 EN ROLLER Reason for Visit * Consultation (Routine) - Closed Specialty Diagnoses / Procedures Referred By Contac t Referred To Contact Rheumatology Diagnoses Rheumatoid arthritis, involving unspecified site, unspecified whether rheumatoid factor present (HCC) Valeriy Marte, [place] [address] [address] Phone: tel: fax: [facility] (All Locations) Referral ID Status Reason Start Date Expiration Date V isits Requested Visits Authorized [id number] Closed Specialty Services Required 05/12/2024 06/11/2025 1 1 Encounter Details Date Type Department Care Team (Late st Contact Info) Description 02/07/2025 10:00 AM SCREEN ROLLER Office Visit [facility] Medicine Rheumatology [address] [facility] [address] [place] [address] Lenora Farias MD [address] [place] [address] Rheumatoid arthritis involving multiple sites, unspecified whether rheumatoid factor present (HCC) (Primary Dx); High risk medication use; Osteoporosis, unspecified osteoporosis type, unspecified pathological fracture presence Social History Tobacco Use Types Packs/Day Years Used Date Smoking Tobacco: Former Cigarettes Q uit: 02/19/1998 Smokeless Tobacco: Never Alcohol Use Standard Drinks/Week Comments Yes 0 [...] on file Legal Sex Male 1:51 AM SCREEN ROLLER Gender Identity Not on file Sexual Orientation Not on file documented as of this encounter Last Filed Vital Signs Vital Sign Reading Time Taken Comments Blood Pressure 144/70 02/07/2025 9:42 AM SCREEN ROLLER Pulse 97 02/07/2025 9:42 AM SCREEN ROLLER Temperature - - Respiratory Rate - - Oxygen Saturation 93% 02/07/2025 9:42 AM SCREEN ROLLER is on oxygen Inhaled Oxygen Concentration - - Weight 93 kg (205 lb) 02/07/2025 9:42 AM SCREEN ROLLER Height 170.2 cm (5' 7) 02/07/2025 9:42 AM SCREEN ROLLER Body Mass Index 32.11 02/07/2025 9:42 AM SCREEN ROLLER documented in this encounter Patient Instructions * Patient Instructions* Lenora Farias MD - 02/07/2025 10:00 AM SCREEN ROLLER VISIT SUMMARY: Today, you were seen for your rheumatoid arthritis, chronic kidney disease, history of lung cancer, and COPD. We discussed your current symptoms, reviewed your medications, and plannedfurther evaluations and treatments to optimize your care. YOUR PLAN: -RHEUMATOID ARTHRITIS WITH CHRONIC JOINT PAIN: Rheumatoid arthritis is an autoimmune disease that causes joint inflammation and pain. We will modify your current medications; continue hydroxychloroquine, and prednisone but at a lower dose of 5 mg once daily, if your symptoms worsens go back to 10 mg daily and let us know. Stop taking celebrex. I have ordered blood tests and x-rays to confirm the diagnosis and assess the extent of joint involvement. We will discuss potential changes to your treatment based on the results and with oncology input. -CHRONIC KIDNEY DISEASE STAGE 3: Chronic kidney disease is a condition where the kidneys gradually lose function. We will evaluate your kidney function and the interactions of your medications, particularly Celebrex, which need to be discontinued due to kidney concerns. You have a nephrology consultation scheduled to further assess and manage this condition. -HISTORY OF LUNG CANCER, STATUS POST RADIATION: You have a history of lung cancer that was treated with radiation and is currently in remission. We will consult with your oncologist to discuss the possibility of restarting Enbrel or other treatment options for your rheumatoid arthritis. EN ROLLER documented in this encounter Ordered Prescriptions Prescription Sig Dispense Quantity Refills Last Filled Start Date End Date predniSONE (DELTASONE) 5 mg tablet Take 1 tablet (5 mg) by mouth daily 10 tablet 02/07/2025 05/08/2025 documented in this encounter Plan of Treatment Scheduled Orders Name Type Priority Associated Diagnoses Orde r Schedule CRP (acute phase) Lab Routine Rheumatoid arthritis involving multiple sites, unspecified whether rheumatoid factor present (HCC) Expected: 02/07/2025, Expires: 02/07/2026 CBC with auto differential Lab Routine Rheumatoid arthritis involving multiple sites, unspecified whether rheumatoid factor present (HCC) Expected: 02/07/2025, Expires: 02/07/2026 Comprehensive metabolic panel Lab Routine Rheumatoid arthritis involving multiple sites, unspecified whether rheumatoid factor present (HCC) Expected: 02/07/2025, Expires: 02/07/2026 Erythrocyte sedimentation rate Lab Routine Rheumatoid arthritis involving multiple sites, unspecified whether rheumatoid factor present (HCC) Expected: 02/07/2025, Expires: 02/07/2026 Hepatitis B core antibody, total Blood Microbiology Routine High risk medication use Expected: 02/07/2025, Expires: 02/07/2026 Hepatitis B surface antibody (immune status) Blood Microbiology Routine High risk medication use Expected: 02/07/2025, Expires: 02/07/2026 Hepatitis B Surface Antigen Blood Microbiology Routine High risk medication use Expected: 02/07/2025, Expires: 02/07/2026 Hepatitis C antibody Blood Microbiology Routine High risk medication use Expected: 02/07/2025, Expires: 02/07/2026 T-SPOT.TB Blood Microbiology Routine High risk medication use Expected: 02/07/2025, Expires: 02/07/2026 XR Hand Left 3 or More Views Imaging Routine Rheumatoid arthritis involving multiple sites, unspecified whether rheumatoid factor present (HCC) Expected: 02/07/2025, Expires: 02/07/2026 XR Hand Right 3 or More Views Imaging Routine Rheumatoid arthritis involving multiple sites, unspecified whether rheumatoid factor present (HCC) Expected: 02/07/2025, Expires: 02/07/2026 XR Wrist Right 3 or More Views Imaging Routine Rheumatoid arthritis involving multiple sites, unspecified whether rheumatoid factor present (HCC) Expected: 02/07/2025, Expires: 02/07/2026 XR Wrist Left 3 or More Views Imaging Routine Rheumatoid arthritis involving multiple sites, unspecified whether rheumatoid factor present (HCC) Expected: 02/07/2025, Expires: 02/07/2026 XR Elbow Left 3 or More Views Imaging Routine Rheumatoid arthritis involving multiple sites, unspecified whether rheumatoid factor present (HCC) Expected: 02/07/2025, Expires: 02/07/2026 XR Elbow Right 3 or More Views Imaging Routine Rheumatoid arthritis involving multiple sites, unspecified whether rheumatoid factor present (HCC) Expected: 02/07/2025, Expires: 02/07/2026 XR Shoulder Right 2 or More Views Imaging Routine Rheumatoid arthritis involving multiple sites, unspecified whether rheumatoid factor present (HCC) Expected: 02/07/2025, Expires: 02/07/2026 XR Shoulder Left 2 or More Views Imaging Routine Rheumatoid arthritis involving multiple sites, unspecified whether rheumatoid factor present (HCC) Expected: 02/07/2025, Expires: 02/07/2026 XR Spine Cervical W Flexion And Extension 4 or 5 Views Imaging Routine Rheumatoid arthritis involving multiple sites, unspecified whether rheumatoid factor present (HCC) Expected: 02/07/2025, Expires: 02/07/2026 XR Foot Right 3 or More Views Imaging Routine Rheumatoid arthritis involving multiple sites, unspecified whether rheumatoid factor present (HCC) Expected: 02/07/2025, Expires: 02/07/2026 XR Foot Left 3 or More Views Imaging Routine Rheumatoid arthritis involving multiple sites, unspecified whether rheumatoid factor present (HCC) Expected: 02/07/2025, Expires: 02/07/2026 Rheumatoid factor Lab Routine Rheumatoid arthritis involving multiple sites, unspecified whether rheumatoid factor present (HCC) Expected: 02/07/2025, Expires: 02/07/2026 Cyclic citrul peptide antibody, IgG Lab Routine Rheumatoid arthritis involving multiple sites, unspecified whether rheumatoid factor present (HCC) Expected: 02/07/2025, Expires: 02/07/2026 Dexa Axial Skeleton Bone Density 1 or 2 Site Imaging Schedule Routine, Read Routine (OP Routine) Osteoporosis, unspecified osteoporosis type, unspecified pathological fracture presence Expected: 02/07/2025, Expires: 02/07/2026 X-ray lumbar spine 2 or 3 views Imaging Schedule Routine, Read Routine (OP Routine) Rheumatoid arthritis involving multiple sites, unspecified whether rheumatoid factor present (HCC) Osteoporosis, unspecified osteoporosis type, unspecified pathological fracture presence Expected: 02/07/2025, Expires: 02/07/2026 BECKY ab ql w/rflx to BECKY qn Lab Routine Rheumatoid arthritis involving multiple sites, unspecified whether rheumatoid factor present (HCC) Expected: 02/07/2025, Expires: 02/07/2026 Anti-double stranded DNA abs Lab Routine Rheumatoid arthritis involving multiple sites, unspecified whether rheumatoid factor present (HCC) Expected: 02/07/2025, Expires: 02/07/2026 ROMEO ab eval w/reflex Lab Routine Rheumatoid arthritis involving multiple sites, unspecified whether rheumatoid factor present (HCC) Expected: 02/07/2025, Expires: 02/07/2026 documented as of this encounter Goals Goal Patient Goal Type Associated Problems Recent Progress Patient-Stated? Author [facility] Estelita Erickson, RN Note: Pt would like to complete ADLs, ride motorcycle with minimal pain. documented as of this encounter Visit Diagnoses Diagnosis Rheumatoid arthritis involving multiple sites, unspecified whether rheumatoid factor present (HCC)- Primary High risk medication use Osteoporosis, unspecified osteoporosis type, unspecified pathological fracture presence documented in this encounter Discontinued Medications Medication Sig Discontinue Reason Start Date End Da te celecoxib (CeleBREX) 200 mg capsule Take 200 mg by mouth daily 02/07/2025 predniSONE (DELTASONE) 10 mg tablet Take 1 tablet PO daily x 5 days, then take 0.5 tablet PO daily 06/25/2020 02/07/2025 documented as of this encounter Orders Outpatient Referral Count Last Ordered Date Fir st Ordered Date AMB REFERRAL TO RHEUMATOLOGY 1 02/07/2025 documented in this encounter Care Teams Component Lab Tech Relationship Specialty Start Date End Date Dre Zavaleta DO [address] [place] [id number] PCP - General Internal Medicine 01/14/24 [place] [address] [place] [address] Consulting Physician Pulmonary Disease 06/25/20 Arpit Han MD PhD [address] [place] [address] Radiation Oncologist Radiation Oncology 10/04/21 [place] [address] [place] [address] Referring Physician Pulmonary Disease 10/04/21 Harvey Alex MD [address] [place] [address] Referring Physician Hematology 02/01/22 documented as of this encounter
--- NOTE | ~2025-02-08 | CT_ITS ---
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 COMPARISON: None. TECHNIQUE: Axial images of the chest, abdomen and pelvis were obtained without administration of contrast FINDINGS: CT CHEST: The examination demonstrates no pulmonary nodules, infiltrates and/or effusions. Centrilobular emphysema are noted. There is scarring within the lingula. No pathologically enlarged hilar or mediastinal lymphadenopathy is seen. Cardiac size and mediastinal configuration are normal in appearance. Osseous structures are intact. IMPRESSION: No acute cardiopulmonary process. Diffuse centrilobular emphysema and scarring within the lingula is unchanged. CT abdomen and pelvis with contrast: The liver parenchyma is unremarkable. Right hepatic focus measuring 3.7 x 2.8 cm stable this may represent regenerative nodule. The patient has had a cholecystectomy. The pancreas and spleen are normal in appearance. The adrenal glands are symmetric in size. The kidneys demonstrate symmetric uptake and excretion of contrast. No cystic mass is evident. There is no solid mass. There is no hydronephrosis. Evaluation of the stomach and bowel loops are limited due to lack of oral contrast. There is colonic diverticulosis without evidence of acute diverticulitis. Appendix is normal. The bladder and rectum are normal. No free intraperitoneal fluid or air is evident. There is no significant retroperitoneal lymphadenopathy. The aorta, visceral vessels and renal arteries demonstrate normal caliber and patency. The lower thoracic and lumbar vertebrae are in normal alignment. IMPRESSION: Right hepatic lobe focus measuring 3.7 x 2.8 cm stable. There is no significant change in appearance of chest abdomen and pelvis. Colonic diverticulosis without evidence of acute diverticulitis is again noted. All CT scans at this facility are performed using low dose modulation techniques as appropriate to perform exam including the following: automated exposure control; use of iterative reconstruction technique; adjustment of the mA and/or kV according to patient size (this includes techniques or standardized protocols for targeted exams where dose is matched to indication/reason for exam) Reviewed, dictated and finalized at location S. MATIC FURNACE OPERATOR IMPRESSION: No acute cardiopulmonary process. Diffuse centrilobular emphysema and scarring within the lingula is unchanged. CT abdomen and pelvis with contrast: The liver parenchyma is unremarkable. Right hepatic focus measuring 3.7 x 2.8 c m stable this may represent regenerative nodule. The patient has had a cholecys tectomy. The pancreas and spleen are normal in appearance. The adrenal glands a re symmetric in size. The kidneys demonstrate symmetric uptake and excretion of contrast. No cystic m ass is evident. There is no solid mass. There is no hydronephrosis. Evaluation of the stomach and bowel loops are limited due to lack of oral contr ast. There is colonic diverticulosis without evidence of acute diverticulitis. Appendix is normal. The bladder and rectum are normal. No free intraperitoneal fluid or air is evid ent. There is no significant retroperitoneal lymphadenopathy. The aorta, visceral vessels and renal arteries demonstrate normal caliber and p atency. The lower thoracic and lumbar vertebrae are in normal alignment. IMPRESSION: Right hepatic lobe focus measuring 3.7 x 2.8 cm stable. There is no significant change in appearance of chest abdomen and pelvis. Colonic diverticulosis without evidence of acute diverticulitis is again noted. All CT scans at this facility are performed using low dose modulation techniqu es as appropriate to perform exam including the following: automated exposure c ontrol; use of iterative reconstruction technique; adjustment of the mA and/or kV according to patient size (this includes techniques or standardized protocol s for targeted exams where dose is matched to indication/reason for exam)
--- OUTSIDE RECORDS SUMMARY | 2025-02-08 11:24 | XMS_ITS | Encounter Summary ---
Author Organization [facility] Address [address] [place] [address] Care Team Providers Care Rate Supervisor Name Role Phone Julius Encinas MD Primary Care Provider [phone] Valeriy Lawson MD Unavailable [phone] Encounter Details Date Type Department Care Team (Late st Contact Info) Description 09/23/2013 [facility] Outpatient Visit EXTERNAL NON-[facility] DEPT Valeriy Lawson MD [address] [place] [address] Social History Tobacco Use Types Packs/Day Years Used Date Smoking Tobacco: Former Cigarettes 0 09/20/1992 - 09/20/2000 Smokeless Tobacco: Never Comments:unk date and mon Alcohol Use Standard Drinks/Week Comments No 0 (1 standard drink = 0.6 oz pur e alcohol) Sex and Gender Information Value Date Recorded Sex Assigned at Not on file 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
--- OUTSIDE RECORDS SUMMARY | 2025-02-08 11:24 | XMS_ITS | Encounter Summary ---
Author Organization [facility] Address [address] [place] [address] Care Team Providers Care Supervisor Hot Dip Plating Name Role Phone Julius Encinas MD Primary Care Provider Valeriy Lawson MD Unavailable [phone] Encounter Details Date Type Department Care Team (Late st Contact Info) Description 05/04/2013 [facility] Outpatient Visit EXTERNAL NON-[facility] DEPT Valeriy Lawson MD [address] [place] [address] Social History Tobacco Use Types Packs/Day Years Used Date Smoking Tobacco: Former Cigarettes 0 09/20/1992 - 09/20/2000 Smokeless Tobacco: Never Comments:unk date and mon Alcohol Use Standard Drinks/Week Comments No 0 (1 standard drink = 0.6 oz pur e alcohol) Sex and Gender Information Value Date Recorded Sex Assigned at Not on file 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
--- OUTSIDE RECORDS SUMMARY | 2025-02-08 11:24 | XMS_ITS | Encounter Summary ---
Author Organization [facility] Address [address] [place] [address] Care Team Providers Care Tobacco Wetter Name Role Phone Julius Encinas MD Primary Care Provider [phone] Valeriy Lawson MD Unavailable [phone] Encounter Details Date Type Department Care Team (Late st Contact Info) Description 02/11/2014 Therapy Visit EXTERNAL NON-[facility] DEPT Valeriy Lawson MD [address] [place] [address] Social History Tobacco Use Types Packs/Day Years Used Date Smoking Tobacco: Former Cigarettes 0 09/20/1992 - 09/20/2000 Smokeless Tobacco: Never Comments:unk date and mon Alcohol Use Standard Drinks/Week Comments No 0 (1 standard drink = 0.6 oz pur e alcohol) Sex and Gender Information Value Date Recorded Sex Assigned at Not on file 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
--- OUTSIDE RECORDS SUMMARY | 2025-02-08 11:24 | XMS_ITS | Encounter Summary ---
Author Organization [facility] Address [address] [place] [address] Care Team Providers Care Delivery And Mail Sorter Name Role Phone Julius Encinas MD Primary Care Provider [phone] Valeriy Lawson MD Unavailable [phone] Encounter Details Date Type Department Care Team (Late st Contact Info) Description 04/13/2014 Therapy Visit EXTERNAL NON-[facility] DEPT Unknown, Provider Social History Tobacco Use Types Packs/Day Years Used Date Smoking Tobacco: Former Cigarettes 0 09/20/1992 - 09/20/2000 Smokeless Tobacco: Never Comments:unk date and mon Alcohol Use Standard Drinks/Week Comments No 0 (1 standard drink = 0.6 oz pur e alcohol) Sex and Gender Information Value Date Recorded Sex Assigned at Not on file 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
--- OUTSIDE RECORDS SUMMARY | 2025-02-08 11:24 | XMS_ITS | Clinical Summary ---
Author Organization [facility] Address [address] [place] [address] Care Team Providers Care Digital Account Director Name Role Phone Zia Mercedes MD Unavailable [phone] Arpit patton MD PhD Unavailable [phone] Zia Mercedes MD Unavailable [phone] Harvey Alex MD Unavailable [phone] Dre Zavaleta DO Primary Care Provider [phone] Allergies Active Allergy Reactions Criticality Noted Date Comments Infliximab Rash Medium Iodinated Contrast Media Itching Low Iodine Itching Low Medications pravastatin (PRAVACHOL) 20 mg tabletIndicati ons:hyperlipid emia Take 1 tablet (20 mg total) by mouth nightly Active omeprazole (PriLOSEC) 40 mg capsule Take 20 mg by mouth daily Active albuterol (PROVENTIL,JERED TOLIN) 2.5 mg /3 mL (0.083 %) nebulizer solution Take 3 mL (2.5 mg total) by nebulization every 4 (four) hours as needed Active albuterol HFA (PROVENTIL HFA,VENTOLIN HFA) 90 mcg/actuation inhaler Inhale 2 puffs every 6 (six) hours as needed Active aspirin 81 mg enteric coated tabletIndicati ons:prevention of thrombosis Take 1 tablet (81 mg total) by mouth daily Active traZODone (DESYREL) 100 mg tabletIndicati ons:insomnia associated with depression Take 1 tablet (100 mg total) by mouth nightly Active hydrOXYchloroQ UINE (PLAQUENIL) 200 mg tabletIndicati ons:Rheumatoid Arthritis Take 1 tablet (200 mg total) by mouth 2 (two) times a day Active fluticasone propionate (FLONASE) 50 mcg/actuation nasal sprayIndicatio ns:Chronic Non-Allergic Rhinitis Administer 2 sprays into each nostril nightly Active HYDROcodone-ac etaminophen (NORCO) 10-325 mg per tabletIndicati ons:Pain Take 1 tablet by mouth every 6 (six) hours as needed for pain Active magnesium gluconate 200 mg tabletIndicati ons:hypomagnes emia Take 2 tablets (400 mg total) by mouth 2 (two) times a day Active tamsulosin (FLOMAX) 0.4 mg extended release capsuleIndicat ions:benign prostatic hyperplasia with lower urinary tract sx Take 1 capsule (0.4 mg total) by mouth nightly Active omega-3 fatty acids 1,000 mg capsule Take 1,000 mg by mouth 2 (two) times a day Active metFORMIN (GLUCOPHAGE) 500 mg tablet Take 1 tablet (500 mg total) by mouth daily with breakfast 30 tablet 06/26/19 21 Active dilTIAZem CD (CARDIZEM CD,DILACOR XR) 240 mg 24 hr capsuleIndicat ions:hypertens ion Take 1 capsule (240 mg total) by mouth daily 30 capsule 06/26/19 21 Active triamterene-hy droCHLOROthiaz jerica (triamterene-h ydroCHLOROthia zide) 37.5-25 mg per tablet/capsule Take 1 tablet/capsule by mouth daily Active budesonide/gly copyr/formoter ol (BREZTRI AEROSPHERE INHAL) Inhale Active doxycycline 100 mg tablet Take 1 tablet/capsule (100 mg total) by mouth daily 03/11/20 23 Active aluminum-magne sium hydroxide suspension 200-200 mg/5 mL Take 10 mL by mouth as needed for heartburn 355 mL 01/14/20 24 Active lidocaine viscous (XYLOCAINE) 2 % solution Take 10 mL by mouth 3 (three) times a day as needed (for spasm) 100 mL 10/09/20 24 Active famotidine (PEPCID) 20 mg tablet Take 1 tablet (20 mg total) by mouth 2 (two) times a day 30 tablet 01/14/20 24 Active guaiFENesin (ROBITUSSIN) syrup 100 mg/5 mL Take 10 mL (200 mg total) by mouth 4 (four) times a day as needed for cough or congestion 60 mL 03/03/20 24 Active benzonatate (TESSALON) 100 mg capsuleIndicat ions:Cough Take 1 capsule (100 mg total) by mouth 3 (three) times a day as needed for cough 21 capsule 03/03/20 24 Active predniSONE (DELTASONE) 5 mg tablet Take 1 tablet (5 mg) by mouth daily 10 tablet 02/08/20 25 026 Active celecoxib (CeleBREX) 200 mg capsule Take 200 mg by mouth daily 025 Discontinued predniSONE (DELTASONE) 10 mg tablet Take 1 tablet PO daily x 5 days, then take 0.5 tablet PO daily 10 tablet 06/26/19 21 025 Discontinued Active Problems Problem Noted Date Diagnosed Date [...] on chronic respiratory failure with hypoxi a ([facility]) 06/04/2020 Assessment & Plan (08/09/2021 1:50 [...] 06/04/2020 Assessment & Plan (06/04/2020 6:00 PM IMPROVEMENT SPEC): Mild elevation of AST and ALT most likely due to acute infection. Will monitor while on remdesivir. Respiratory alkalosis 06/04/2020 Assessment & Plan (06/04/2020 6:01 PM IMPROVEMENT SPEC): Due to hyperventilation from hypoxia on admission. Monitor respiratory function with supplemental oxygen. Chronic obstructive pulmonar y disease with acute exacerbation ([facility]) 06/04/2020 Assessment & Plan (08/09/2021 1:52 PM CDT): Patient on prednisone, symbicort, and albuterol prn at home. - continue home meds - Mucinex DM and Tessalon perles added for cough Assessment & Plan (08/09/2021 1:35 AM CDT): Continue breathing treatments Assessment & Plan (06/04/2020 6:02 PM IMPROVEMENT SPEC): Mild COPD exacerbation due to COVID-19, breath sounds diminished with mild end expiratory wheezing and a cough productive of small amounts of yellow sputum. Continue steroids for COVID-19 along with home Symbicort and albuterol p.r.n. COVID-19 05/29/2020 Assessment & Plan (06/04/2020 6:04 PM IMPROVEMENT SPEC): Shortness of breath worsened since initial diagnosis [...] 05/29/2020 Assessment & Plan (06/04/2020 5:59 PM IMPROVEMENT SPEC): Unable to obtain CTA chest because of allergy to IV contrast, but symptoms are not suggestive of acute the and D-dimer is very slightly above the threshold for normal. Will treat with Lovenox at half therapeutic dose because of COVID-19. Rheumatoid arthritis involvi ng multiple sites with positive rheumatoid factor ([facility]) 05/29/2020 Assessment & Plan (08/09/2021 1:49 PM CDT): Holding Plaquenil and Celebrex. Continue prednisone daily. Assessment & Plan (08/09/2021 1:33 AM CDT): Holding Plaquenil. Continue prednisone daily. Assessment & Plan (06/04/2020 5:57 PM IMPROVEMENT SPEC): Continue home RA regimen, will need to [...] ordered Assessment & Plan (06/04/2020 5:58 PM IMPROVEMENT SPEC): Uses CPAP at home, but does not [...] Encounters Date Type Department Care Team Description 02/07/2025 10:00 AM IMPROVEMENT SPEC Office Visit [facility] Medicine Rheumatology [address] [facility] [address] [place] [address] Lenora Farias MD Rheumatoid arthritis involving multiple sites, unspecified whether rheumatoid factor present (HCC) (Primary Dx); High risk medication use; Osteoporosis, unspecified osteoporosis type, unspecified pathological fracture presence 12/27/2024 Telephone [facility] Medicine Rheumatology [address] [facility] Medical Office Building [address] [place] [address] Ashlyn Travis, Juan WANTING TO BE A NEW PATIENT from Last 3 Months Immunizations Immunization Administration [...] on file Legal Sex Male 1:51 AM IMPROVEMENT SPEC Gender Identity Not on file Sexual Orientation Not on file Last Filed Vital Signs Vital Sign Reading Time Taken Comments Blood Pressure 144/70 02/07/2025 9:42 AM IMPROVEMENT SPEC Pulse 97 02/07/2025 9:42 AM IMPROVEMENT SPEC Temperature 37 C (98.6 F) 08/21/2024 12:53 PM CDT Respiratory Rate 19 08/21/2024 8:10 PM CDT Oxygen Saturation 93% 02/07/2025 9:42 AM IMPROVEMENT SPEC is on oxygen Inhaled Oxygen Concentration - - Weight 93 kg (205 lb) 02/07/2025 9:42 AM IMPROVEMENT SPEC Height 170.2 cm (5' 7) 02/07/2025 9:42 AM IMPROVEMENT SPEC Body Mass Index 32.11 02/07/2025 9:42 AM IMPROVEMENT SPEC Plan of Treatment Health Maintenance Due Date Last Done Comments Albumin Creatinine Ratio, Urine 1945 Dilated Eye Exam 1945 Foot Exam 1944 Lipid Panel 1944 DTaP/Tdap/Td Vaccine (1 - Tdap) 08/04/1955 Hepatitis B Screening 1962 Well Visit 65+ 2009 Zoster Vaccine (2 of 2) 06/02/2015 04/07/2015 Pneumococcal vaccine 65+ (2 of 2 - PPSV23, PCV20, or PCV21) 02/26/2018 01/01/2018 Depression Screening 06/04/2021 06/04/2020, 01/13/2018, 01/13/2018 Fall Risk Assessment 08/29/2022 08/29/2021 Influenza Vaccine (#1) 2024 , 01/01/2023, 12/07/2019, Additional history exists Hemoglobin A1C 06/07/2025 12/08/2024, 03/0 11/2020, 12/23/2018 eGFR 08/21/2025 08/21/2024, 11/2 10/2023, 01/14/2024, Additional history exists Abdominal Aortic Aneurysm (A AA) Screen Completed 01/21/2023, 07/15/2022, 06/27/2017 Goals Goal Patient Goal Type Associated Problems Recent Progress Patient-Stated? Author [facility] Estelita Erickson, RN Note: Pt would like to complete ADLs, ride motorcycle with minimal pain. Medical Devices Implanted Type Area Distillery Manager Device Identifier Shelf Expiration Date Model / Serial / Lot Other-See Comments Other - see comments Bilatera l: Knee Description:R. Total knee- 2 020 L. Total Knee-2015 Procedures Procedure Name Priority Date/Time Associated Diagnosis Comments EGFR STAT 08/21/2024 1:[address] CHEST ABDOMEN PELVIS WO CONTRAST Schedule Routine, Read Routine (OP Routine) 01/21/2023 11:07 AM CDT HEMOGLOBIN A1C Add-On 06/12/2020 11:07 AM IMPROVEMENT SPEC from Last 3 Months or Most Recently Relevant to Health Maintenance Results * (ABNORMAL) eGFR (08/21/2024 1:41 PM CDT) eGFR 31(L) >=60 mL/min/1. 73 m2 Comment: [...] LAB BLOOD ORDERABLES Final Re sult [facility] [id number] [place] [address] * CT Chest Abdomen Pelvis WO Contrast (01/21/2023 11:07 AM CDT) Anatomical Region Laterality Modality Body N/A Computed Tomogra phy us Arpit Han MD PhD IMG CT PROCEDURES Prudence l Result from Last 3 Months or Most Recently Relevant to Health Maintenance Insurance MEDICARE [facility] MEDICARE [facility] [place] [address] [facility] MEDICARE SUPPLEMENT Advance Directives For more information, please contact: [phone] * Full Code (Latest Code Status on [...] 12:19 PM 03/03/2018 4:40 PM Care Teams Digital Account Director Relationship Specialty Start Date End Date Dre Zavaleta DO [address] [address] PCP - General Internal Medicine 01/14/24 [place] [address] [address] [address] Consulting Physician Pulmonary Disease 06/25/20 Arpit Han MD PhD [address] [place] [address] Radiation Oncologist Radiation Oncology 10/04/21 [place] [address] [address] [address] Referring Physician Pulmonary Disease 10/04/21 Harvey Alex MD [address] [place] [address] Referring Physician Hematology 02/01/22
--- OUTSIDE RECORDS SUMMARY | 2025-02-08 11:24 | XMS_ITS | Encounter Summary ---
Author Organization [facility] Health Address [address] [address] Care Team Providers Care Enamel Finisher Name Role Phone Julius Encinas MD Primary Care Provider [phone] Valeriy Lawson MD Unavailable [phone] Encounter Details Date Type Department Care Team (Late st Contact Info) Description 02/10/2014 [facility] Outpatient Visit EXTERNAL NON-[facility] DEPT Valeriy Lawson MD [address] [place] [id number] Social History Tobacco Use Types Packs/Day Years Used Date Smoking Tobacco: Former Cigarettes 0 09/20/1992 - 09/20/2000 Smokeless Tobacco: Never Comments:unk date and mon Alcohol Use Standard Drinks/Week Comments No 0 (1 standard drink = 0.6 oz pur e alcohol) Sex and Gender Information Value Date Recorded Sex Assigned at Not on file Legal Sex Male 4:21 AM TELERADIOLOGIST Gender Identity Not on file Sexual Orientation Not on file documented as of this encounter Plan of Treatment Not on file documented as of this encounter Visit Diagnoses Not on filedocumented in this encounter Care Teams Enamel Finisher Relationship Specialty Start Date End Date Julius Encinas MD [address] [place] [address] PCP - General 06/10/08 Valeriy Lawson MD [address] [place] [address] 11/13/09 documented as of this encounter
--- OUTSIDE RECORDS SUMMARY | 2025-02-08 11:24 | XMS_ITS ---
Author Organization [facility] Address [address] [place] [address] Care Team Providers Care Tactical Debriefer Officer Name Role Phone Zia Mercedes MD Unavailable [phone] Arpit Han MD PhD Unavailable [phone] Zia Mercedes MD Unavailable [phone] Harvey Alex MD Unavailable [phone] Dre Zavaleta DO Primary Care Provider [phone] Active Problems Problem Noted Date Diagnosed Date [...] on chronic respiratory failure with hypoxi a ([facility]) 06/04/2020 Assessment & Plan (08/09/2021 [...] 06/04/2020 Assessment & Plan (06/04/2020 6:00 PM TOOL ROOM SUPERVISOR): Mild elevation of AST and ALT most likely due to acute infection. Will monitor while on remdesivir. Respiratory alkalosis 06/04/2020 Assessment & Plan (06/04/2020 6:01 PM TOOL ROOM SUPERVISOR): Due to hyperventilation from hypoxia on admission. Monitor respiratory function with supplemental oxygen. Chronic obstructive pulmonar y disease with acute exacerbation ([facility]) 06/04/2020 Assessment & Plan (08/09/2021 1:52 PM CDT): Patient on prednisone, symbicort, and albuterol prn at home. - continue home meds - Mucinex DM and Tessalon perles added for cough Assessment & Plan (08/09/2021 1:35 AM CDT): Continue breathing treatments Assessment & Plan (06/04/2020 6:02 PM TOOL ROOM SUPERVISOR): Mild COPD exacerbation due to COVID-19, breath sounds diminished with mild end expiratory wheezing and a cough productive of small amounts of yellow sputum. Continue steroids for COVID-19 along with home Symbicort and albuterol p.r.n. COVID-19 05/29/2020 Assessment & Plan (06/04/2020 6:04 PM TOOL ROOM SUPERVISOR): Shortness of breath worsened since initial [...] 05/29/2020 Assessment & Plan (06/04/2020 5:59 PM TOOL ROOM SUPERVISOR): Unable to obtain CTA chest because of allergy to IV contrast, but symptoms are not suggestive of acute the and D-dimer is very slightly above the threshold for normal. Will treat with Lovenox at half therapeutic dose because of COVID-19. Rheumatoid arthritis involvi ng multiple sites with positive rheumatoid factor ([facility]) 05/29/2020 Assessment & Plan (08/09/2021 1:49 PM CDT): Holding Plaquenil and Celebrex. Continue prednisone daily. Assessment & Plan (08/09/2021 1:33 AM CDT): Holding Plaquenil. Continue prednisone daily. Assessment & Plan (06/04/2020 5:57 PM TOOL ROOM SUPERVISOR): Continue home RA regimen, will need [...] ordered Assessment & Plan (06/04/2020 5:58 PM TOOL ROOM SUPERVISOR): Uses CPAP at home, but does [...]
--- OUTSIDE RECORDS SUMMARY | 2025-02-08 11:24 | XMS_ITS | Clinical Summary ---
Author Organization [facility] Address [address] [place] [address] Care Team Providers Care Cut To Length Operator Name Role Phone Dre Zavaleta DO Primary Care Provider [phone] Allergies Active Allergy Reactions Criticality Noted Date [...] take 0.5 tablet PO daily 1 Active Bairoil-3 Fatty Acids 1,000 mg Capsule Take 1,000 [...] H. Active fluticasone propionate (FLONASE) 50 mcg/spray Amado, Suspension nasal inhaler Administer 2 Sprays in [...] Encounters Date Type Department Care Team Description 12/09/2024 Orders Only [facility] - [place] [address] [place] [phone] Harvey Alex MD 12/08/2024 Orders Only Initial Department [address] [facility] [address] MANCINI: [place] [address] Provider, Historical 11/24/2024 Telephone [facility] - [place] [address] [place] [phone] Harvey Alex MD Requesting Sooner Appointment (Per olena- patient should not need a sooner appt. ) 11/22/2024 Telephone [facility] - [place] [address] [place] [address] Harvey Alex MD Lab Results 11/18/2024 Orders Only [facility] - [place] [address] [place] [phone] Harvey Alex MD 11/18/2024 Abstract [facility] - [place] [address] [place] [address] Harvey Alex MD 11/17/2024 Telephone [facility] - [place] [address] [place] [address] Harvey Alex MD Lab Questions from Last 3 Months Family History Medical [...] Former Cigarettes 2 [phone] Tobacco Cessation:Counseling Given: Not Answered Alcohol Use Standard Drinks/Week Comments Yes 0 (1 standard drink = 0.6 oz pur e alcohol) Sex and Gender Information Value Date Recorded Sex Assigned at Not on file Legal Sex Male 10:35 AM TERRAZZO MECHANIC Gender Identity Not on file Sexual [...] st Contact Info) Description 02/14/2025 10:15 AM TERRAZZO MECHANIC Office Visit [facility] - [place] [address] [facility] [address] [place] [address] Harvey Alex MD [address] [facility] [address] [place] [address] Health Maintenance Due Date Last [...] 01/21/2011, 01/11/2010 DIABETES HBA1C Q 6 MONTHS 06/07/20252024, 07/22/2024, 07/16/2024, Additional history exists DIABETES ANNUAL RETINAL EXAM 08/06/202505/2024, 08/06/2023, 08/06/2023, Additional history exists COLORECTAL SCREENING Discontinued 11/13/2023, 08/08/2022, 09/11/2017, Additional history exists Colorectal Cancer Screening Discontinued FIT-DNA Q 3 years Discontinued FIT/FOBT Q 1 year Discontinued Flex Sig/CT Colonography Q 5 years Discontinued Procedures Procedure Name Priority Date/Time Associated Diagnosis Comments CBC WITH AUTODIFFERENTIAL Routine 12/08/2024 11:40 AM CDT HEMOGLOBIN A1C Routine 12/08/2024 8:23 AM CDT CBC WITHOUT DIFFERENTIAL Routine 025 8:23 AM CDT IRON, TIBC, AND PERCENT SATURATION Routine 12/08/2024 8:23 AM CDT from Last 3 Months Results * CBC WITH AUTODIFFERENTIAL (12/08/2024 11:40 AM CDT) Blood Harvey Alex MD HEMATOLOGY ORDERABLES Final Res ult * IRON, TIBC, AND PERCENT SATURATION (12/08/2024 8:23 AM CDT) IRON 128 50 - 180 mcg/dL [facility] TIBC 358 250 - 425 mcg/dL (calc) [facility] IRON % SATURATION 36 20 - 48 % (calc) [facility] Comment: [facility] [address] [place] [address] 12/08/2024 8:23 AM CDT 12/08/2024 8:24 AM CDT Valeriy DUMONT CHEMISTRY ORDERABLES Final Res ult [facility] [phone] [facility] [address] [address] * (ABNORMAL) CBC WITHOUT DIFFERENTIAL (12/08/2024 8:23 AM CDT) Pathologist [facility] WBC 10.0 3.8 - 10.8 Thousand/u L [facility] Comment: Anisocytosis 2 + Microcytosis 1 + Hypochromasia 1 + Ovalocytes 1 + RBC 4.30 4.20 - 5.80 Million/uL [facility] HEMOGLOBIN 11.4(L) 13.2 - 17.1 g/dL [facility] HEMATOCRIT 37.8(L) 38.5 - 50.0 % [facility] MCV 87.9 80.0 - 100.0 fL [facility] MCH 26.5(L) 27.0 - 33.0 pg [facility] MCHC 30.2(L) 32.0 - 36.0 g/dL [facility] Comment: For adults, a slight decrease in the calculated MCHC value (in the range of 30 to 32 g/dL) is most likely not clinically significant; however, it should be interpreted with caution in correlation with other red cell parameters and the patient's clinical condition. RDW 22.5(H) 11.0 - 15.0 % [facility] PLATELETS 218 140 - 400 Thousand/u L [facility] MPV 10.4 7.5 - 12.5 fL [facility] Comment: [facility] [address] [place] [phone] 12/08/2024 8:23 AM CDT 12/08/2024 8:24 AM CDT Valeriy Marte [facility] HEMATOLOGY ORDERABLES Final Re sult [facility] [phone] [facility] [address] [address] * HEMOGLOBIN A1C (12/08/2024 8:23 AM CDT) HEMOGLOBIN A1C 5.0 <5.7 % of total Hgb [facility] Comment: For the purpose of screening for the presence of diabetes: <5.7% Consistent with the absence of diabetes 5.7-6.4% Consistent with increased risk for diabetes (prediabetes) > or =6.5% Consistent with diabetes This assay result is consistent with a decreased risk of diabetes. Currently, no consensus exists regarding use of hemoglobin A1c for diagnosis of diabetes in children. According to [place] Diabetes Association (ADA) guidelines, hemoglobin A1c <7.0% represents optimal control in non- diabetic patients. Different metrics may apply to specific patient populations. Standards of Medical Care in Diabetes(ADA). FASTING:YES FASTING: YES [facility] [address] [place] [phone] 12/08/2024 8:23 AM CDT 12/08/2024 8:24 AM CDT Valeriy [facility] CHEMISTRY ORDERABLES Final Res ult [facility] [phone] [facility] [address] [place] [address] from Last 3 Months Insurance MEDICARE PART A AND B [facility] MEDICARE PART A AND B [facility] SUPP Care Teams Cut To Length Operator Relationship Specialty Start Date End Date Dre Zavaleta DO [address] [facility] [address] [facility] [address] [place] [address] PCP - General Internal Medicine 08/11/24
--- OUTSIDE RECORDS SUMMARY | 2025-02-08 11:25 | XMS_ITS | Clinical Summary ---
Author Organization [facility] Address [address] [place] [address] Care Team Providers Care Inspector Handbag Frames Name Role Phone Julius Encinas MD Primary Care Provider [phone] Valeriy Lawson MD Unavailable [phone] Source Comments [facility],non-owned Affiliates and Associated Physician Practices is amultiple site organization consisting of ambulatory clinics and hospital sitesin [place], [place], [place] and [place]. This disclosure is being madepursuant to the Care Everywhere program and may not contain all information available regarding this patient. Last updated 17.[facility] Allergies Active Allergy Reactions Criticality Noted Date [...] VITAMINS PO Take by mouth daily. 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 Gender Identity Not on file Sexual [...] Done Comments MEDICARE AWV 12 MONTHS 1944 COVID-19 VACCINE (#1) 1949 DTAP/TDAP/TD VACCINES (1 - Tdap) 08/04/1963 PNEUMOCOCCAL VACCINE 50+ (1 of 2 - PCV) 08/04/1963 ZOSTER VACCINE (1 of 2) 1994 Respiratory Syncytial Virus (RSV) Vaccine Pt: or over 60 yrs (1 - 1-dose 75+ series) 08/04/2019 DEPRESSION SCREENING 04/07/2024 INFLUENZA VACCINE (#1) 2024 [...] age to complete this topic Insurance ANTHEM Member Subscriber Plan / Payer (Ef fective 2012-Present) Name:Dilan Weaver [place] Relation to Subscriber:Self Name:Dilan Weaver Payer ID:[id number] (NAIC) Type:[facility] Address: [address] MED[address] ANTHEM Member Subscriber Plan / Payer (Ef fective for All Dates) Name:Dilan Weaver Relation to Subscriber:Self Name:Dilan Weaver Payer ID:[id number] (NAIC) Type:Commercial Address: [place] [id number] SELF PAY NO INSURANCE Member Subscriber Plan / Payer (Ef fective for All Dates) Name:MegDilan Clayton Member ID:Not on file Relation to Subscriber:Not on file Name:OHBREANNEDILAN Subscriber ID:Not on file (Home) Address: [address] [place] [id number] Payer ID:Not on file Group ID:Not on file Type:Self Pay Address: [place], [place] ANTHEM MEDICARE [facility] Care Teams Inspector Handbag Frames Relationship Specialty Start Date End Date Julius Encinas MD [address] [place] [id number] PCP - General 06/10/08 Valeriy Lawson MD [address] [place] [address] 11/13/09
--- OUTSIDE RECORDS SUMMARY | 2025-02-08 11:25 | XMS_ITS | Encounter Summary ---
Author Organization [facility] Address [address] [place] [address] Care Team Providers Care Mechanical Designer Name Role Phone Julius Encinas MD Primary Care Provider Valeriy Lawson MD Unavailable [phone] Encounter Details Date Type Department Care Team (Late st Contact Info) Description 08/24/2010 [facility] Outpatient Visit [facility] - Family Medicine [address] [place] [phone] Valeriy Lawson MD [address] [place], [place] [id number] Social History Tobacco Use Types Packs/Day Years Used Date Smoking Tobacco: Former Cigarettes 0 09/20/1992 - 09/20/2000 Smokeless Tobacco: Never Comments:unk date and mon Alcohol Use Standard Drinks/Week Comments No 0 (1 standard drink = 0.6 oz pur e alcohol) Sex and Gender Information Value Date Recorded Sex Assigned at Not on file Legal Sex Male 4:21 AM ROOFING CONTRACTOR Gender Identity Not on file Sexual Orientation Not on file documented as of this encounter Plan of Treatment Not on file documented as of this encounter Visit Diagnoses Not on filedocumented in this encounter Care Teams Mechanical Designer Relationship Specialty Start Date End Date Julius Encinas MD [address] [place] [id number] PCP - General 06/10/08 Valeriy Lawson MD [address] [place] [address] 11/13/09 documented as of this encounter
== END 2025-02-08 10:01 | disposition home or self-care (01) ==
PROVIDERS: PCP Nurse Practitioner; Visit Provider Internal Medicine Hematology & Oncology
DX: C34.12 Malignant neoplasm of upper lobe, left bronchus or lung (principal); K57.30 Diverticulosis of large intestine without perforation or abscess without bleeding
CPT/HCPCS: 71250; 74176

== ENCOUNTER 2025-02-10 12:45 | Outpatient (CLI) | payer MEDICARE, SELFPAY ==
--- OUTSIDE RECORDS SUMMARY | 2025-02-08 11:43 | XMS_ITS | Encounter Summary ---
Author Organization [facility] Address [address] [place] [address] Care Team Providers Care Spanish Lecturer Name Role Phone Zia Mercedes MD Unavailable [phone] Arpit patton MD PhD Unavailable [phone] Zia Mercedes MD Unavailable [phone] Harvey Alex MD Unavailable [phone] Dre Zavaleta DO Primary Care Provider [phone] Reason for Referral * Diagnostic Imaging (Routine) - Closed Specialty Diagnoses / Procedures Referred By Contac t Referred To Contact Diagnoses Rheumatoid arthritis involving multiple sites, unspecified whether rheumatoid factor present (HCC) Procedures XR Foot Left 3 or More Views Lenora Farias MD [address] [facility] [address] [place] [address] Phone: tel: fax: [facility] Medicine Referral ID Status Reason Start Date Expiration Date Visits Re quested Visits Authorized [id number] Closed 02/07/2025 03/09/2026 1 1 ORT RAMP SUPERVISOR * Diagnostic Imaging (Routine) - Closed Specialty Diagnoses / Procedures Referred By Contac t Referred To Contact Diagnoses Rheumatoid arthritis involving multiple sites, unspecified whether rheumatoid factor present (HCC) Procedures XR Shoulder Left 2 or More Views Lenora Farias MD [address] [place] [address] Phone: tel: fax: [address] [phone] Referral ID Status Reason Start Date Expiration Date Visits Re quested Visits Authorized [id number] Closed 02/07/2025 03/09/2026 1 1 ORT RAMP SUPERVISOR * Diagnostic Imaging (Routine) - Closed Specialty Diagnoses / Procedures Referred By Contac t Referred To Contact Diagnoses Rheumatoid arthritis involving multiple sites, unspecified whether rheumatoid factor present (HCC) Procedures XR Elbow Right 3 or More Views Lenora Farias MD [address] [place] [address] Phone: tel: fax: [address] [phone] Referral ID Status Reason Start Date Expiration Date Visits Re quested Visits Authorized [id number] Closed 02/07/2025 03/09/2026 1 1 ORT RAMP SUPERVISOR * Diagnostic Imaging (Routine) - Closed Specialty Diagnoses / Procedures Referred By Contac t Referred To Contact Diagnoses Rheumatoid arthritis involving multiple sites, unspecified whether rheumatoid factor present (HCC) Procedures XR Hand Right 3 or More Views Lenora Farias MD [address] [place] [address] Phone: tel: fax: [address] [phone] Referral ID Status Reason Start Date Expiration Date Visits Re quested Visits Authorized [id number] Closed 02/07/2025 03/09/2026 1 1 ORT RAMP SUPERVISOR * Diagnostic Imaging (Routine) - Closed Specialty Diagnoses / Procedures Referred By Contac t Referred To Contact Diagnoses Rheumatoid arthritis involving multiple sites, unspecified whether rheumatoid factor present (HCC) Procedures XR Hand Left 3 or More Views Lenora Farias MD [address] [place] [address] Phone: tel: fax: [address] [phone] Referral ID Status Reason Start Date Expiration Date Visits Re quested Visits Authorized [id number] Closed 02/07/2025 03/09/2026 1 1 ORT RAMP SUPERVISOR * Diagnostic Imaging (Routine) - Closed Specialty Diagnoses / Procedures Referred By Contac t Referred To Contact Diagnoses Rheumatoid arthritis involving multiple sites, unspecified whether rheumatoid factor present (HCC) Osteoporosis, unspecified osteoporosis type, unspecified pathological fracture presence Procedures X-ray lumbar spine 2 or 3 views Lenora Farias MD [address] [place] [address] Phone: tel: fax: [address] [phone] Referral ID Status Reason Start Date Expiration Date Visits Re quested Visits Authorized [id number] Closed 02/07/2025 03/09/2026 1 1 ORT RAMP SUPERVISOR Reason for Visit * Diagnostic Imaging (Routine) - Closed Specialty Diagnoses / Procedures Referred By Contac t Referred To Contact Diagnoses Rheumatoid arthritis involving multiple sites, unspecified whether rheumatoid factor present (HCC) Osteoporosis, unspecified osteoporosis type, unspecified pathological fracture presence Procedures X-ray lumbar spine 2 or 3 views Lenora Farias MD [address] [place] [address] Phone: tel: fax: [address] [phone] Referral ID Status Reason Start Date Expiration Date Visits Re quested Visits Authorized [id number] Closed 02/07/2025 03/09/2026 1 1 Encounter Details Date Type Department Care Team (Latest Contact Info) Description 02/08/2025 11:43 AM AIRPORT RAMP SUPERVISOR - 02/08/2025 11:59 PM AIRPORT RAMP SUPERVISOR Hospital Encounter [facility] [address] [place] [id number] Rheumatoid arthritis involving multiple sites, unspecified whether rheumatoid factor present (HCC); Osteoporosis, unspecified osteoporosis type, unspecified pathological fracture presence Discharge Disposition: Discharge to home or self care Social History Tobacco Use Types Packs/Day Years [...] on file Legal Sex Male 1:51 AM AIRPORT RAMP SUPERVISOR Gender Identity Not on file Sexual Orientation Not on file documented as of this encounter Medications at Time of Discharge albuterol (PROVENTIL,VENTOL IN) 2.5 mg /3 mL (0.083 %) nebulizer solution Take 3 mL (2.5 mg total) by nebulization every 4 (four) hours as needed albuterol HFA (PROVENTIL HFA,VENTOLIN HFA) 90 mcg/actuation inhaler Inhale 2 puffs every 6 (six) hours as needed aluminum-magnesiu m hydroxide suspension 200-200 mg/5 mL Take 10 mL by mouth as needed for heartburn 355 mL 01/14/2024 aspirin 81 mg enteric coated tabletIndications :prevention of thrombosis Take 1 tablet (81 mg total) by mouth daily benzonatate (TESSALON) 100 mg capsuleIndication s:Cough Take 1 capsule (100 mg total) by mouth 3 (three) times a day as needed for cough 21 capsule 03/03/2024 budesonide/glycop yr/formoterol (BREZTRI AEROSPHERE INHAL) Inhale dilTIAZem CD (CARDIZEM CD,DILACOR XR) 240 mg 24 hr capsuleIndication s:hypertension Take 1 capsule (240 mg total) by mouth daily 30 capsule 06/25/2020 doxycycline 100 mg tablet Take 1 tablet/capsule (100 mg total) by mouth daily 03/11/2023 etanercept (ENBREL) 50 mg/mL (1 mL) pen injector Inject 1 mL (50 mg total) under the skin once a week 4 mL 5 02/10/2025 fluticasone propionate (FLONASE) 50 mcg/actuation nasal sprayIndications: Chronic Non-Allergic Rhinitis Administer 2 sprays into each nostril nightly guaiFENesin (ROBITUSSIN) syrup 100 mg/5 mL Take 10 mL (200 mg total) by mouth 4 (four) times a day as needed for cough or congestion 60 mL 03/03/2024 HYDROcodone-aceta minophen (NORCO) 10-325 mg per tabletIndications :Pain Take 1 tablet by mouth every 6 (six) hours as needed for pain hydrOXYchloroQUIN E (PLAQUENIL) 200 mg tabletIndications :Rheumatoid Arthritis Take 1 tablet (200 mg total) by mouth 2 (two) times a day lidocaine viscous (XYLOCAINE) 2 % solution Take 10 mL by mouth 3 (three) times a day as needed (for spasm) 100 mL 01/14/2024 magnesium gluconate 200 mg tabletIndications :hypomagnesemia Take 2 tablets (400 mg total) by mouth 2 (two) times a day omega-3 fatty acids 1,000 mg capsule Take 1,000 mg by mouth 2 (two) times a day omeprazole (PriLOSEC) 40 mg capsule Take 20 mg by mouth daily pravastatin (PRAVACHOL) 20 mg tabletIndications :hyperlipidemia Take 1 tablet (20 mg total) by mouth nightly predniSONE (DELTASONE) 5 mg tablet Take 1 tablet (5 mg) by mouth daily 10 tablet 02/07/2025 tamsulosin (FLOMAX) 0.4 mg extended release capsuleIndication s:benign prostatic hyperplasia with lower urinary tract sx Take 1 capsule (0.4 mg total) by mouth nightly traZODone (DESYREL) 100 mg tabletIndications :insomnia associated with depression Take 1 tablet (100 mg total) by mouth nightly triamterene-hydro CHLOROthiazide (triamterene-hydr oCHLOROthiazide) 37.5-25 mg per tablet/capsule Take 1 tablet/capsule by mouth daily documented as of this encounter Discharge Disposition Disposition Code Departure Means Destination Discharge to home or self care documented in this encounter Plan of Treatment Not on file documented as of this encounter Goals Goal Patient Goal Type Associated Problems Recent Progress Patient-Stated? Author [facility] Estelita Erickson, RN Note: Pt would like to complete ADLs, ride motorcycle with minimal pain. documented as of this encounter Procedures Procedure Name Priority Date/Time Associated Diagnosis Comments XR SPINE CERVICAL W FLEXION AND EXTENSION 4 VIEWS Routine 02/08/2025 12:32 PM AIRPORT RAMP SUPERVISOR Rheumatoid arthritis involving multiple sites, unspecified whether rheumatoid factor present (HCC) XR FOOT RIGHT 3 OR MORE VIEWS Routine 02/08/2025 12:32 PM AIRPORT RAMP SUPERVISOR Rheumatoid arthritis involving multiple sites, unspecified whether rheumatoid factor present (HCC) XR FOOT LEFT 3 OR MORE VIEWS Routine 02/08/2025 12:32 PM AIRPORT RAMP SUPERVISOR Rheumatoid arthritis involving multiple sites, unspecified whether rheumatoid factor present (HCC) XR HAND RIGHT 3 OR MORE VIEWS Routine 02/08/2025 12:32 PM AIRPORT RAMP SUPERVISOR Rheumatoid arthritis involving multiple sites, unspecified whether rheumatoid factor present (HCC) XR HAND LEFT 3 OR MORE VIEWS Routine 02/08/2025 12:32 PM AIRPORT RAMP SUPERVISOR Rheumatoid arthritis involving multiple sites, unspecified whether rheumatoid factor present (HCC) XR WRIST RIGHT 3 OR MORE VIEWS Routine 02/08/2025 12:32 PM AIRPORT RAMP SUPERVISOR Rheumatoid arthritis involving multiple sites, unspecified whether rheumatoid factor present (HCC) XR WRIST LEFT 3 OR MORE VIEWS Routine 02/08/2025 12:32 PM AIRPORT RAMP SUPERVISOR Rheumatoid arthritis involving multiple sites, unspecified whether rheumatoid factor present (HCC) XR ELBOW RIGHT 3 OR MORE VIEWS Routine 02/08/2025 12:32 PM AIRPORT RAMP SUPERVISOR Rheumatoid arthritis involving multiple sites, unspecified whether rheumatoid factor present (HCC) XR ELBOW LEFT 3 OR MORE VIEWS Routine 02/08/2025 12:32 PM AIRPORT RAMP SUPERVISOR Rheumatoid arthritis involving multiple sites, unspecified whether rheumatoid factor present (HCC) XR SHOULDER RIGHT 2 OR MORE VIEWS Routine 02/08/2025 12:32 PM AIRPORT RAMP SUPERVISOR Rheumatoid arthritis involving multiple sites, unspecified whether rheumatoid factor present (HCC) XR SHOULDER LEFT 2 OR MORE VIEWS Routine 02/08/2025 12:32 PM AIRPORT RAMP SUPERVISOR Rheumatoid arthritis involving multiple sites, unspecified whether rheumatoid factor present (HCC) XR SPINE LUMBAR 2 OR 3 VIEWS Schedule Routine, Read Routine (OP Routine) 02/08/2025 12:32 PM AIRPORT RAMP SUPERVISOR Rheumatoid arthritis involving multiple sites, unspecified whether rheumatoid factor present (HCC) Osteoporosis, unspecified osteoporosis type, unspecified pathological fracture presence documented in this encounter Results * XR Foot Left 3 or More Views (02/08/2025 12:32 PM AIRPORT RAMP SUPERVISOR) Anatomical Region Laterality Modality Lower Extremities, Foot Left Computed Radiography 02/08/2025 1:41 PM AIRPORT RAMP SUPERVISOR Impressions 02/08/2025 1:41 PM AIRPORT RAMP SUPERVISOR No acute osseous abnormality. No obvious erosions or convincing evidence of inflammatory arthropathy. Electronically signed by: Madi Moreno M.D. Narrative 02/08/2025 1:41 PM AIRPORT RAMP SUPERVISOR EXAMINATION/TECHNIQUE: XR FOOT LEFT 3 OR MORE VIEWS HISTORY: arthralgia Pain. R/o inflammatory arthritis COMPARISON: None. FINDINGS: BONES/JOINTS: No acute displaced fracture or dislocation. No aggressive-appearing osseous lesion. Calcaneal enthesopathic changes. SOFT TISSUES: Unremarkable. Vascular calcifications. Procedure Note Madi Moreno MD - 02/08/2025 EXAMINATION/TECHNIQUE: XR FOOT LEFT 3 OR MORE VIEWS HISTORY: arthralgia Pain. R/o inflammatory arthritis COMPARISON: None. FINDINGS: BONES/JOINTS: No acute displaced fracture or dislocation. No aggressive-appearing osseous lesion. Calcaneal enthesopathic changes. SOFT TISSUES: Unremarkable. Vascular calcifications. IMPRESSION: No acute osseous abnormality. No obvious erosions or convincing evidence of inflammatory arthropathy. Electronically signed by: Madi Moreno M.D. Lenora Cooley MD IMG XR PROCEDURES Final Result * XR Foot Right 3 or More Views (02/08/2025 12:32 PM AIRPORT RAMP SUPERVISOR) Anatomical Region Laterality Modality Lower Extremities, Foot Right Computed Radiography 02/08/2025 1:39 PM AIRPORT RAMP SUPERVISOR Impressions 02/08/2025 1:39 PM AIRPORT RAMP SUPERVISOR No acute osseous abnormality. Scattered degenerative changes. No obvious erosions or convincing evidence of inflammatory arthropathy. Electronically signed by: Madi Moreno M.D. Narrative 02/08/2025 1:39 PM AIRPORT RAMP SUPERVISOR EXAMINATION/TECHNIQUE: XR FOOT RIGHT 3 OR MORE VIEWS HISTORY: arthralgia Pain. R/o inflammatory arthritis COMPARISON: None. FINDINGS: BONES/JOINTS: No acute displaced fracture or dislocation. No aggressive-appearing osseous lesion. Calcaneal enthesopathic changes. Scattered degenerative changes most pronounced at the 1st metatarsophalangeal joint. No obvious erosions. SOFT TISSUES: Vascular calcifications. Procedure Note Madi Moreno MD - 02/08/2025 EXAMINATION/TECHNIQUE: XR FOOT RIGHT 3 OR MORE VIEWS HISTORY: arthralgia Pain. R/o inflammatory arthritis COMPARISON: None. FINDINGS: BONES/JOINTS: No acute displaced fracture or dislocation. No aggressive-appearing osseous lesion. Calcaneal enthesopathic changes. Scattered degenerative changes most pronounced at the 1st metatarsophalangeal joint. No obvious erosions. SOFT TISSUES: Vascular calcifications. IMPRESSION: No acute osseous abnormality. Scattered degenerative changes. No obvious erosions or convincing evidence of inflammatory arthropathy. Electronically signed by: Madi Moreno M.D. Lenoar Cooley MD IMG XR PROCEDURES Final Result * XR Spine Cervical W Flexion And Extension 4 or 5 Views (02/08/2025 12:32 PM AIRPORT RAMP SUPERVISOR) Anatomical Region Laterality Modality Spine N/A Computed Radiogr aphy 02/08/2025 1:33 PM AIRPORT RAMP SUPERVISOR Impressions 02/08/2025 1:33 PM AIRPORT RAMP SUPERVISOR 1. No definite acute osseous abnormality. 2. Advanced multilevel degenerative changes of the cervical spine with multilevel high-grade neural foraminal narrowing suboptimally evaluated by radiograph. 3. No obvious erosions or convincing evidence of inflammatory arthropathy. Electronically signed by: Madi Moreno M.D. Narrative 02/08/2025 1:33 PM AIRPORT RAMP SUPERVISOR EXAMINATION/TECHNIQUE: XR SPINE CERVICAL W FLEXION AND EXTENSION 4 OR 5 VIEWS HISTORY: arthralgia Pain. R/o inflammatory arthritis COMPARISON: None. FINDINGS: BONES/JOINTS: Stepwise mild anterolisthesis of C3 on C4 C4 on C5 and C5 on C6. No significant worsening of the anterolisthesis with flexion or extension. Multilevel disc osteophyte complex and facet arthrosis. No acute displaced fracture. Neuroforaminal and spinal canal narrowing suboptimally evaluated by radiograph. However, there appears to be multilevel high-grade neural foraminal narrowing. No obvious erosions. SOFT TISSUES: Vascular calcifications. Procedure Note Madi Moreno MD - 02/08/2025 EXAMINATION/TECHNIQUE: XR SPINE CERVICAL W FLEXION AND EXTENSION 4 OR 5 VIEWS HISTORY: arthralgia Pain. R/o inflammatory arthritis COMPARISON: None. FINDINGS: BONES/JOINTS: Stepwise mild anterolisthesis of C3 on C4 C4 on C5 and C5 on C6. No significant worsening of the anterolisthesis with flexion or extension. Multilevel disc osteophyte complex and facet arthrosis. No acute displaced fracture. Neuroforaminal and spinal canal narrowing suboptimally evaluated by radiograph. However, there appears to be multilevel high-grade neural foraminal narrowing. No obvious erosions. SOFT TISSUES: Vascular calcifications. IMPRESSION: 1. No definite acute osseous abnormality. 2. Advanced multilevel degenerative changes of the cervical spine with multilevel high-grade neural foraminal narrowing suboptimally evaluated by radiograph. 3. No obvious erosions or convincing evidence of inflammatory arthropathy. Electronically signed by: Madi Moreno M.D. Lenora Cooley MD IMG XR PROCEDURES Final Result * XR Shoulder Left 2 or More Views (02/08/2025 12:32 PM AIRPORT RAMP SUPERVISOR) Anatomical Region Laterality Modality Upper Extremities, Shoulder Left Comp uted Radiography 02/08/2025 1:19 PM AIRPORT RAMP SUPERVISOR Impressions 02/08/2025 1:19 PM AIRPORT RAMP SUPERVISOR 1. No acute displaced fracture or dislocation. 2. Findings compatible with reported rheumatoid arthritis primarily affecting the left wrist and hand as described above. Scattered superimposed osteoarthritis. Electronically signed by: Madi Moreno M.D. Narrative 02/08/2025 1:19 PM AIRPORT RAMP SUPERVISOR EXAMINATION/TECHNIQUE: XR HAND LEFT 3 OR MORE VIEWS, XR WRIST LEFT 3 OR MORE VIEWS, XR ELBOW LEFT 3 OR MORE VIEWS, XR SHOULDER LEFT 2 OR MORE VIEWS HISTORY: arthralgia Pain. R/o inflammatory arthritis COMPARISON: 03/03/2024 FINDINGS: Left shoulder: BONES/JOINTS: No acute displaced fracture or dislocation. Mild osteoarthrosis of the acromial clavicular joint. Moderate osteoarthrosis of the glenohumeral joint. SOFT TISSUES: Unremarkable. Left elbow: BONES/JOINTS: No acute displaced fracture or dislocation. No aggressive-appearing osseous lesion. SOFT TISSUES: Numerous vascular and/or dermal calcifications. Chronic enthesopathic change or sequela of remote injury of the sublime tubercle and the lateral humeral epicondyle. No joint effusion. Left wrist: BONES/JOINTS: No acute displaced fracture or dislocation. No aggressive-appearing osseous lesion. 2 small marginal erosions of the distal ulna adjacent to the ulnar styloid. Degenerative changes of the radiocarpal joint with joint space narrowing. SOFT TISSUES: Unremarkable. Left hand: BONES/JOINTS: No acute displaced fracture or dislocation. No aggressive-appearing osseous lesion. Scattered erosions including Large marginal version along the ulnar aspect of the 2nd proximal interphalangeal joint with associated mild lateral subluxation and an erosion of the radial aspect of the distal 3rd metacarpal. Scattered joint space loss most pronounced involving the 2nd and 3rd metacarpophalangeal joints. Scattered superimposed degenerative changes/osteoarthrosis most pronounced involving the 1st carpal metacarpal joint. SOFT TISSUES: Vascular calcifications. Mild soft tissue edema overlying the 2nd proximal interphalangeal joint. Procedure Note Madi Moreno MD - 02/08/2025 EXAMINATION/TECHNIQUE: XR HAND LEFT 3 OR MORE VIEWS, XR WRIST LEFT 3 OR MORE VIEWS, XR ELBOW LEFT 3 OR MORE VIEWS, XR SHOULDER LEFT 2 OR MORE VIEWS HISTORY: arthralgia Pain. R/o inflammatory arthritis COMPARISON: 03/03/2024 FINDINGS: Left shoulder: BONES/JOINTS: No acute displaced fracture or dislocation. Mild osteoarthrosis of the acromial clavicular joint. Moderate osteoarthrosis of the glenohumeral joint. SOFT TISSUES: Unremarkable. Left elbow: BONES/JOINTS: No acute displaced fracture or dislocation. No aggressive-appearing osseous lesion. SOFT TISSUES: Numerous vascular and/or dermal calcifications. Chronic enthesopathic change or sequela of remote injury of the sublime tubercle and the lateral humeral epicondyle. No joint effusion. Left wrist: BONES/JOINTS: No acute displaced fracture or dislocation. No aggressive-appearing osseous lesion. 2 small marginal erosions of the distal ulna adjacent to the ulnar styloid. Degenerative changes of the radiocarpal joint with joint space narrowing. SOFT TISSUES: Unremarkable. Left hand: BONES/JOINTS: No acute displaced fracture or dislocation. No aggressive-appearing osseous lesion. Scattered erosions including Large marginal version along the ulnar aspect of the 2nd proximal interphalangeal joint with associated mild lateral subluxation and an erosion of the radial aspect of the distal 3rd metacarpal. Scattered joint space loss most pronounced involving the 2nd and 3rd metacarpophalangeal joints. Scattered superimposed degenerative changes/osteoarthrosis most pronounced involving the 1st carpal metacarpal joint. SOFT TISSUES: Vascular calcifications. Mild soft tissue edema overlying the 2nd proximal interphalangeal joint. IMPRESSION: 1. No acute displaced fracture or dislocation. 2. Findings compatible with reported rheumatoid arthritis primarily affecting the left wrist and hand as described above. Scattered superimposed osteoarthritis. Electronically signed by: Madi Moreno M.D. Lenora Cooley MD IM XR PROCEDURES Final Result * XR Shoulder Right 2 or More Views (02/08/2025 12:32 PM AIRPORT RAMP SUPERVISOR) Anatomical Region Laterality Modality Upper Extremities, Shoulder Right Comp uted Radiography 02/08/2025 1:29 PM AIRPORT RAMP SUPERVISOR Impressions 02/08/2025 1:29 PM AIRPORT RAMP SUPERVISOR 1. No acute displaced fracture or dislocation. 2. Findings compatible with reported rheumatoid arthritis primarily affecting the right wrist and hand as described above. Scattered superimposed osteoarthritis. Electronically signed by: Madi Moreno M.D. Narrative 02/08/2025 1:29 PM AIRPORT RAMP SUPERVISOR EXAMINATION/TECHNIQUE: XR HAND RIGHT 3 OR MORE VIEWS, XR WRIST RIGHT 3 OR MORE VIEWS, XR ELBOW RIGHT 3 OR MORE VIEWS, XR SHOULDER RIGHT 2 OR MORE VIEWS HISTORY: arthralgia Pain. R/o inflammatory arthritis COMPARISON: None. FINDINGS: Right shoulder: BONES/JOINTS: No acute displaced fracture or dislocation. No aggressive-appearing osseous lesion. Mild osteoarthrosis of the acromioclavicular and glenohumeral joints. No obvious erosions. SOFT TISSUES: Unremarkable. Right elbow: BONES/JOINTS: No acute displaced fracture or dislocation. No aggressive-appearing osseous lesion. Chronic enthesopathic change or sequela of prior injury of the medial and lateral humeral epicondyles, olecranon, and the sublime tubercle. No joint effusion. No obvious erosions. SOFT TISSUES: Numerous vascular and/or dermal calcifications. Right wrist: BONES/JOINTS: No acute displaced fracture or dislocation. No aggressive-appearing osseous lesion. Small erosion of the ulnar styloid. Mild joint space loss at the radiocarpal joint. SOFT TISSUES: Unremarkable. Right hand: BONES/JOINTS: No acute displaced fracture or dislocation. No aggressive-appearing osseous lesion. Scattered joint space loss most pronounced involving the 1st and 2nd metacarpophalangeal joints with associated mild subluxation. A few small erosions primarily involving the proximal interphalangeal joints of the 1st and 2nd digits. Superimposed osteoarthritis most pronounced involving the distal interphalangeal joints of the 1st through 3rd digits and the 1st carpal metacarpal joint. SOFT TISSUES: Mild edema of the 2nd digit. Procedure Note Madi Moreno MD - 02/08/2025 EXAMINATION/TECHNIQUE: XR HAND RIGHT 3 OR MORE VIEWS, XR WRIST RIGHT 3 OR MORE VIEWS, XR ELBOW RIGHT 3 OR MORE VIEWS, XR SHOULDER RIGHT 2 OR MORE VIEWS HISTORY: arthralgia Pain. R/o inflammatory arthritis COMPARISON: None. FINDINGS: Right shoulder: BONES/JOINTS: No acute displaced fracture or dislocation. No aggressive-appearing osseous lesion. Mild osteoarthrosis of the acromioclavicular and glenohumeral joints. No obvious erosions. SOFT TISSUES: Unremarkable. Right elbow: BONES/JOINTS: No acute displaced fracture or dislocation. No aggressive-appearing osseous lesion. Chronic enthesopathic change or sequela of prior injury of the medial and lateral humeral epicondyles, olecranon, and the sublime tubercle. No joint effusion. No obvious erosions. SOFT TISSUES: Numerous vascular and/or dermal calcifications. Right wrist: BONES/JOINTS: No acute displaced fracture or dislocation. No aggressive-appearing osseous lesion. Small erosion of the ulnar styloid. Mild joint space loss at the radiocarpal joint. SOFT TISSUES: Unremarkable. Right hand: BONES/JOINTS: No acute displaced fracture or dislocation. No aggressive-appearing osseous lesion. Scattered joint space loss most pronounced involving the 1st and 2nd metacarpophalangeal joints with associated mild subluxation. A few small erosions primarily involving the proximal interphalangeal joints of the 1st and 2nd digits. Superimposed osteoarthritis most pronounced involving the distal interphalangeal joints of the 1st through 3rd digits and the 1st carpal metacarpal joint. SOFT TISSUES: Mild edema of the 2nd digit. IMPRESSION: 1. No acute displaced fracture or dislocation. 2. Findings compatible with reported rheumatoid arthritis primarily affecting the right wrist and hand as described above. Scattered superimposed osteoarthritis. Electronically signed by: Madi Moreno M.D. Lenora Cooley MD IMG XR PROCEDURES Final Result * XR Elbow Right 3 or More Views (02/08/2025 12:32 PM [employer]) Anatomical Region Laterality Modality Upper Extremities, Elbow Right Compute d Radiography 02/08/2025 1:29 PM [employer] Impressions 02/08/2025 1:29 PM [employer] 1. No acute displaced fracture or dislocation. 2. Findings compatible with reported rheumatoid arthritis primarily affecting the right wrist and hand as described above. Scattered superimposed osteoarthritis. Electronically signed by: Madi Moreno M.D. Narrative 02/08/2025 1:29 PM [employer] EXAMINATION/TECHNIQUE: XR HAND RIGHT 3 OR MORE VIEWS, XR WRIST RIGHT 3 OR MORE VIEWS, XR ELBOW RIGHT 3 OR MORE VIEWS, XR SHOULDER RIGHT 2 OR MORE VIEWS HISTORY: arthralgia Pain. R/o inflammatory arthritis COMPARISON: None. FINDINGS: Right shoulder: BONES/JOINTS: No acute displaced fracture or dislocation. No aggressive-appearing osseous lesion. Mild osteoarthrosis of the acromioclavicular and glenohumeral joints. No obvious erosions. SOFT TISSUES: Unremarkable. Right elbow: BONES/JOINTS: No acute displaced fracture or dislocation. No aggressive-appearing osseous lesion. Chronic enthesopathic change or sequela of prior injury of the medial and lateral humeral epicondyles, olecranon, and the sublime tubercle. No joint effusion. No obvious erosions. SOFT TISSUES: Numerous vascular and/or dermal calcifications. Right wrist: BONES/JOINTS: No acute displaced fracture or dislocation. No aggressive-appearing osseous lesion. Small erosion of the ulnar styloid. Mild joint space loss at the radiocarpal joint. SOFT TISSUES: Unremarkable. Right hand: BONES/JOINTS: No acute displaced fracture or dislocation. No aggressive-appearing osseous lesion. Scattered joint space loss most pronounced involving the 1st and 2nd metacarpophalangeal joints with associated mild subluxation. A few small erosions primarily involving the proximal interphalangeal joints of the 1st and 2nd digits. Superimposed osteoarthritis most pronounced involving the distal interphalangeal joints of the 1st through 3rd digits and the 1st carpal metacarpal joint. SOFT TISSUES: Mild edema of the 2nd digit. Procedure Note Madi Moreno MD - 02/08/2025 EXAMINATION/TECHNIQUE: XR HAND RIGHT 3 OR MORE VIEWS, XR WRIST RIGHT 3 OR MORE VIEWS, XR ELBOW RIGHT 3 OR MORE VIEWS, XR SHOULDER RIGHT 2 OR MORE VIEWS HISTORY: arthralgia Pain. R/o inflammatory arthritis COMPARISON: None. FINDINGS: Right shoulder: BONES/JOINTS: No acute displaced fracture or dislocation. No aggressive-appearing osseous lesion. Mild osteoarthrosis of the acromioclavicular and glenohumeral joints. No obvious erosions. SOFT TISSUES: Unremarkable. Right elbow: BONES/JOINTS: No acute displaced fracture or dislocation. No aggressive-appearing osseous lesion. Chronic enthesopathic change or sequela of prior injury of the medial and lateral humeral epicondyles, olecranon, and the sublime tubercle. No joint effusion. No obvious erosions. SOFT TISSUES: Numerous vascular and/or dermal calcifications. Right wrist: BONES/JOINTS: No acute displaced fracture or dislocation. No aggressive-appearing osseous lesion. Small erosion of the ulnar styloid. Mild joint space loss at the radiocarpal joint. SOFT TISSUES: Unremarkable. Right hand: BONES/JOINTS: No acute displaced fracture or dislocation. No aggressive-appearing osseous lesion. Scattered joint space loss most pronounced involving the 1st and 2nd metacarpophalangeal joints with associated mild subluxation. A few small erosions primarily involving the proximal interphalangeal joints of the 1st and 2nd digits. Superimposed osteoarthritis most pronounced involving the distal interphalangeal joints of the 1st through 3rd digits and the 1st carpal metacarpal joint. SOFT TISSUES: Mild edema of the 2nd digit. IMPRESSION: 1. No acute displaced fracture or dislocation. 2. Findings compatible with reported rheumatoid arthritis primarily affecting the right wrist and hand as described above. Scattered superimposed osteoarthritis. Electronically signed by: Madi Moreno M.D. Lenora Cooley MD IM XR PROCEDURES Final Result * XR Elbow Left 3 or More Views (02/08/2025 12:32 PM [employer]) Anatomical Region Laterality Modality Upper Extremities, Elbow Left Compute d Radiography 02/08/2025 1:19 PM [employer] Impressions 02/08/2025 1:19 PM [employer] 1. No acute displaced fracture or dislocation. 2. Findings compatible with reported rheumatoid arthritis primarily affecting the left wrist and hand as described above. Scattered superimposed osteoarthritis. Electronically signed by: Madi Moreno M.D. Narrative 02/08/2025 1:19 PM [employer] EXAMINATION/TECHNIQUE: XR HAND LEFT 3 OR MORE VIEWS, XR WRIST LEFT 3 OR MORE VIEWS, XR ELBOW LEFT 3 OR MORE VIEWS, XR SHOULDER LEFT 2 OR MORE VIEWS HISTORY: arthralgia Pain. R/o inflammatory arthritis COMPARISON: 03/03/2024 FINDINGS: Left shoulder: BONES/JOINTS: No acute displaced fracture or dislocation. Mild osteoarthrosis of the acromial clavicular joint. Moderate osteoarthrosis of the glenohumeral joint. SOFT TISSUES: Unremarkable. Left elbow: BONES/JOINTS: No acute displaced fracture or dislocation. No aggressive-appearing osseous lesion. SOFT TISSUES: Numerous vascular and/or dermal calcifications. Chronic enthesopathic change or sequela of remote injury of the sublime tubercle and the lateral humeral epicondyle. No joint effusion. Left wrist: BONES/JOINTS: No acute displaced fracture or dislocation. No aggressive-appearing osseous lesion. 2 small marginal erosions of the distal ulna adjacent to the ulnar styloid. Degenerative changes of the radiocarpal joint with joint space narrowing. SOFT TISSUES: Unremarkable. Left hand: BONES/JOINTS: No acute displaced fracture or dislocation. No aggressive-appearing osseous lesion. Scattered erosions including Large marginal version along the ulnar aspect of the 2nd proximal interphalangeal joint with associated mild lateral subluxation and an erosion of the radial aspect of the distal 3rd metacarpal. Scattered joint space loss most pronounced involving the 2nd and 3rd metacarpophalangeal joints. Scattered superimposed degenerative changes/osteoarthrosis most pronounced involving the 1st carpal metacarpal joint. SOFT TISSUES: Vascular calcifications. Mild soft tissue edema overlying the 2nd proximal interphalangeal joint. Procedure Note Madi Moreno MD - 02/08/2025 EXAMINATION/TECHNIQUE: XR HAND LEFT 3 OR MORE VIEWS, XR WRIST LEFT 3 OR MORE VIEWS, XR ELBOW LEFT 3 OR MORE VIEWS, XR SHOULDER LEFT 2 OR MORE VIEWS HISTORY: arthralgia Pain. R/o inflammatory arthritis COMPARISON: 03/03/2024 FINDINGS: Left shoulder: BONES/JOINTS: No acute displaced fracture or dislocation. Mild osteoarthrosis of the acromial clavicular joint. Moderate osteoarthrosis of the glenohumeral joint. SOFT TISSUES: Unremarkable. Left elbow: BONES/JOINTS: No acute displaced fracture or dislocation. No aggressive-appearing osseous lesion. SOFT TISSUES: Numerous vascular and/or dermal calcifications. Chronic enthesopathic change or sequela of remote injury of the sublime tubercle and the lateral humeral epicondyle. No joint effusion. Left wrist: BONES/JOINTS: No acute displaced fracture or dislocation. No aggressive-appearing osseous lesion. 2 small marginal erosions of the distal ulna adjacent to the ulnar styloid. Degenerative changes of the radiocarpal joint with joint space narrowing. SOFT TISSUES: Unremarkable. Left hand: BONES/JOINTS: No acute displaced fracture or dislocation. No aggressive-appearing osseous lesion. Scattered erosions including Large marginal version along the ulnar aspect of the 2nd proximal interphalangeal joint with associated mild lateral subluxation and an erosion of the radial aspect of the distal 3rd metacarpal. Scattered joint space loss most pronounced involving the 2nd and 3rd metacarpophalangeal joints. Scattered superimposed degenerative changes/osteoarthrosis most pronounced involving the 1st carpal metacarpal joint. SOFT TISSUES: Vascular calcifications. Mild soft tissue edema overlying the 2nd proximal interphalangeal joint. IMPRESSION: 1. No acute displaced fracture or dislocation. 2. Findings compatible with reported rheumatoid arthritis primarily affecting the left wrist and hand as described above. Scattered superimposed osteoarthritis. Electronically signed by: Madi Moreno M.D. Lenora Cooley MD IM XR PROCEDURES Final Result * XR Wrist Left 3 or More Views (02/08/2025 12:32 PM [employer]) Anatomical Region Laterality Modality Upper Extremities, Wrist Left Compute d Radiography 02/08/2025 1:19 PM [employer] Impressions 02/08/2025 1:19 PM [employer] 1. No acute displaced fracture or dislocation. 2. Findings compatible with reported rheumatoid arthritis primarily affecting the left wrist and hand as described above. Scattered superimposed osteoarthritis. Electronically signed by: Madi Moreno M.D. Narrative 02/08/2025 1:19 PM [employer] EXAMINATION/TECHNIQUE: XR HAND LEFT 3 OR MORE VIEWS, XR WRIST LEFT 3 OR MORE VIEWS, XR ELBOW LEFT 3 OR MORE VIEWS, XR SHOULDER LEFT 2 OR MORE VIEWS HISTORY: arthralgia Pain. R/o inflammatory arthritis COMPARISON: 03/03/2024 FINDINGS: Left shoulder: BONES/JOINTS: No acute displaced fracture or dislocation. Mild osteoarthrosis of the acromial clavicular joint. Moderate osteoarthrosis of the glenohumeral joint. SOFT TISSUES: Unremarkable. Left elbow: BONES/JOINTS: No acute displaced fracture or dislocation. No aggressive-appearing osseous lesion. SOFT TISSUES: Numerous vascular and/or dermal calcifications. Chronic enthesopathic change or sequela of remote injury of the sublime tubercle and the lateral humeral epicondyle. No joint effusion. Left wrist: BONES/JOINTS: No acute displaced fracture or dislocation. No aggressive-appearing osseous lesion. 2 small marginal erosions of the distal ulna adjacent to the ulnar styloid. Degenerative changes of the radiocarpal joint with joint space narrowing. SOFT TISSUES: Unremarkable. Left hand: BONES/JOINTS: No acute displaced fracture or dislocation. No aggressive-appearing osseous lesion. Scattered erosions including Large marginal version along the ulnar aspect of the 2nd proximal interphalangeal joint with associated mild lateral subluxation and an erosion of the radial aspect of the distal 3rd metacarpal. Scattered joint space loss most pronounced involving the 2nd and 3rd metacarpophalangeal joints. Scattered superimposed degenerative changes/osteoarthrosis most pronounced involving the 1st carpal metacarpal joint. SOFT TISSUES: Vascular calcifications. Mild soft tissue edema overlying the 2nd proximal interphalangeal joint. Procedure Note Madi Moreno MD - 02/08/2025 EXAMINATION/TECHNIQUE: XR HAND LEFT 3 OR MORE VIEWS, XR WRIST LEFT 3 OR MORE VIEWS, XR ELBOW LEFT 3 OR MORE VIEWS, XR SHOULDER LEFT 2 OR MORE VIEWS HISTORY: arthralgia Pain. R/o inflammatory arthritis COMPARISON: 03/03/2024 FINDINGS: Left shoulder: BONES/JOINTS: No acute displaced fracture or dislocation. Mild osteoarthrosis of the acromial clavicular joint. Moderate osteoarthrosis of the glenohumeral joint. SOFT TISSUES: Unremarkable. Left elbow: BONES/JOINTS: No acute displaced fracture or dislocation. No aggressive-appearing osseous lesion. SOFT TISSUES: Numerous vascular and/or dermal calcifications. Chronic enthesopathic change or sequela of remote injury of the sublime tubercle and the lateral humeral epicondyle. No joint effusion. Left wrist: BONES/JOINTS: No acute displaced fracture or dislocation. No aggressive-appearing osseous lesion. 2 small marginal erosions of the distal ulna adjacent to the ulnar styloid. Degenerative changes of the radiocarpal joint with joint space narrowing. SOFT TISSUES: Unremarkable. Left hand: BONES/JOINTS: No acute displaced fracture or dislocation. No aggressive-appearing osseous lesion. Scattered erosions including Large marginal version along the ulnar aspect of the 2nd proximal interphalangeal joint with associated mild lateral subluxation and an erosion of the radial aspect of the distal 3rd metacarpal. Scattered joint space loss most pronounced involving the 2nd and 3rd metacarpophalangeal joints. Scattered superimposed degenerative changes/osteoarthrosis most pronounced involving the 1st carpal metacarpal joint. SOFT TISSUES: Vascular calcifications. Mild soft tissue edema overlying the 2nd proximal interphalangeal joint. IMPRESSION: 1. No acute displaced fracture or dislocation. 2. Findings compatible with reported rheumatoid arthritis primarily affecting the left wrist and hand as described above. Scattered superimposed osteoarthritis. Electronically signed by: Madi Moreno M.D. Lenora Cooley MD IMG XR PROCEDURES Final Result * XR Wrist Right 3 or More Views (02/08/2025 12:32 PM [employer]) Anatomical Region Laterality Modality Upper Extremities, Wrist Right Compute d Radiography 02/08/2025 1:29 PM [employer] Impressions 02/08/2025 1:29 PM [employer] 1. No acute displaced fracture or dislocation. 2. Findings compatible with reported rheumatoid arthritis primarily affecting the right wrist and hand as described above. Scattered superimposed osteoarthritis. Electronically signed by: Madi Moreno M.D. Narrative 02/08/2025 1:29 PM [employer] EXAMINATION/TECHNIQUE: XR HAND RIGHT 3 OR MORE VIEWS, XR WRIST RIGHT 3 OR MORE VIEWS, XR ELBOW RIGHT 3 OR MORE VIEWS, XR SHOULDER RIGHT 2 OR MORE VIEWS HISTORY: arthralgia Pain. R/o inflammatory arthritis COMPARISON: None. FINDINGS: Right shoulder: BONES/JOINTS: No acute displaced fracture or dislocation. No aggressive-appearing osseous lesion. Mild osteoarthrosis of the acromioclavicular and glenohumeral joints. No obvious erosions. SOFT TISSUES: Unremarkable. Right elbow: BONES/JOINTS: No acute displaced fracture or dislocation. No aggressive-appearing osseous lesion. Chronic enthesopathic change or sequela of prior injury of the medial and lateral humeral epicondyles, olecranon, and the sublime tubercle. No joint effusion. No obvious erosions. SOFT TISSUES: Numerous vascular and/or dermal calcifications. Right wrist: BONES/JOINTS: No acute displaced fracture or dislocation. No aggressive-appearing osseous lesion. Small erosion of the ulnar styloid. Mild joint space loss at the radiocarpal joint. SOFT TISSUES: Unremarkable. Right hand: BONES/JOINTS: No acute displaced fracture or dislocation. No aggressive-appearing osseous lesion. Scattered joint space loss most pronounced involving the 1st and 2nd metacarpophalangeal joints with associated mild subluxation. A few small erosions primarily involving the proximal interphalangeal joints of the 1st and 2nd digits. Superimposed osteoarthritis most pronounced involving the distal interphalangeal joints of the 1st through 3rd digits and the 1st carpal metacarpal joint. SOFT TISSUES: Mild edema of the 2nd digit. Procedure Note Madi Moreno MD - 02/08/2025 EXAMINATION/TECHNIQUE: XR HAND RIGHT 3 OR MORE VIEWS, XR WRIST RIGHT 3 OR MORE VIEWS, XR ELBOW RIGHT 3 OR MORE VIEWS, XR SHOULDER RIGHT 2 OR MORE VIEWS HISTORY: arthralgia Pain. R/o inflammatory arthritis COMPARISON: None. FINDINGS: Right shoulder: BONES/JOINTS: No acute displaced fracture or dislocation. No aggressive-appearing osseous lesion. Mild osteoarthrosis of the acromioclavicular and glenohumeral joints. No obvious erosions. SOFT TISSUES: Unremarkable. Right elbow: BONES/JOINTS: No acute displaced fracture or dislocation. No aggressive-appearing osseous lesion. Chronic enthesopathic change or sequela of prior injury of the medial and lateral humeral epicondyles, olecranon, and the sublime tubercle. No joint effusion. No obvious erosions. SOFT TISSUES: Numerous vascular and/or dermal calcifications. Right wrist: BONES/JOINTS: No acute displaced fracture or dislocation. No aggressive-appearing osseous lesion. Small erosion of the ulnar styloid. Mild joint space loss at the radiocarpal joint. SOFT TISSUES: Unremarkable. Right hand: BONES/JOINTS: No acute displaced fracture or dislocation. No aggressive-appearing osseous lesion. Scattered joint space loss most pronounced involving the 1st and 2nd metacarpophalangeal joints with associated mild subluxation. A few small erosions primarily involving the proximal interphalangeal joints of the 1st and 2nd digits. Superimposed osteoarthritis most pronounced involving the distal interphalangeal joints of the 1st through 3rd digits and the 1st carpal metacarpal joint. SOFT TISSUES: Mild edema of the 2nd digit. IMPRESSION: 1. No acute displaced fracture or dislocation. 2. Findings compatible with reported rheumatoid arthritis primarily affecting the right wrist and hand as described above. Scattered superimposed osteoarthritis. Electronically signed by: Madi Moreno M.D. Lenora Cooley MD IMG XR PROCEDURES Final Result * XR Hand Right 3 or More Views (02/08/2025 12:32 PM [employer]) Anatomical Region Laterality Modality Upper Extremities, Hand Right Computed Radiography 02/08/2025 1:29 PM [employer] Impressions 02/08/2025 1:29 PM [employer] 1. No acute displaced fracture or dislocation. 2. Findings compatible with reported rheumatoid arthritis primarily affecting the right wrist and hand as described above. Scattered superimposed osteoarthritis. Electronically signed by: Madi Moreno M.D. Narrative 02/08/2025 1:29 PM [employer] EXAMINATION/TECHNIQUE: XR HAND RIGHT 3 OR MORE VIEWS, XR WRIST RIGHT 3 OR MORE VIEWS, XR ELBOW RIGHT 3 OR MORE VIEWS, XR SHOULDER RIGHT 2 OR MORE VIEWS HISTORY: arthralgia Pain. R/o inflammatory arthritis COMPARISON: None. FINDINGS: Right shoulder: BONES/JOINTS: No acute displaced fracture or dislocation. No aggressive-appearing osseous lesion. Mild osteoarthrosis of the acromioclavicular and glenohumeral joints. No obvious erosions. SOFT TISSUES: Unremarkable. Right elbow: BONES/JOINTS: No acute displaced fracture or dislocation. No aggressive-appearing osseous lesion. Chronic enthesopathic change or sequela of prior injury of the medial and lateral humeral epicondyles, olecranon, and the sublime tubercle. No joint effusion. No obvious erosions. SOFT TISSUES: Numerous vascular and/or dermal calcifications. Right wrist: BONES/JOINTS: No acute displaced fracture or dislocation. No aggressive-appearing osseous lesion. Small erosion of the ulnar styloid. Mild joint space loss at the radiocarpal joint. SOFT TISSUES: Unremarkable. Right hand: BONES/JOINTS: No acute displaced fracture or dislocation. No aggressive-appearing osseous lesion. Scattered joint space loss most pronounced involving the 1st and 2nd metacarpophalangeal joints with associated mild subluxation. A few small erosions primarily involving the proximal interphalangeal joints of the 1st and 2nd digits. Superimposed osteoarthritis most pronounced involving the distal interphalangeal joints of the 1st through 3rd digits and the 1st carpal metacarpal joint. SOFT TISSUES: Mild edema of the 2nd digit. Procedure Note Madi Moreno MD - 02/08/2025 EXAMINATION/TECHNIQUE: XR HAND RIGHT 3 OR MORE VIEWS, XR WRIST RIGHT 3 OR MORE VIEWS, XR ELBOW RIGHT 3 OR MORE VIEWS, XR SHOULDER RIGHT 2 OR MORE VIEWS HISTORY: arthralgia Pain. R/o inflammatory arthritis COMPARISON: None. FINDINGS: Right shoulder: BONES/JOINTS: No acute displaced fracture or dislocation. No aggressive-appearing osseous lesion. Mild osteoarthrosis of the acromioclavicular and glenohumeral joints. No obvious erosions. SOFT TISSUES: Unremarkable. Right elbow: BONES/JOINTS: No acute displaced fracture or dislocation. No aggressive-appearing osseous lesion. Chronic enthesopathic change or sequela of prior injury of the medial and lateral humeral epicondyles, olecranon, and the sublime tubercle. No joint effusion. No obvious erosions. SOFT TISSUES: Numerous vascular and/or dermal calcifications. Right wrist: BONES/JOINTS: No acute displaced fracture or dislocation. No aggressive-appearing osseous lesion. Small erosion of the ulnar styloid. Mild joint space loss at the radiocarpal joint. SOFT TISSUES: Unremarkable. Right hand: BONES/JOINTS: No acute displaced fracture or dislocation. No aggressive-appearing osseous lesion. Scattered joint space loss most pronounced involving the 1st and 2nd metacarpophalangeal joints with associated mild subluxation. A few small erosions primarily involving the proximal interphalangeal joints of the 1st and 2nd digits. Superimposed osteoarthritis most pronounced involving the distal interphalangeal joints of the 1st through 3rd digits and the 1st carpal metacarpal joint. SOFT TISSUES: Mild edema of the 2nd digit. IMPRESSION: 1. No acute displaced fracture or dislocation. 2. Findings compatible with reported rheumatoid arthritis primarily affecting the right wrist and hand as described above. Scattered superimposed osteoarthritis. Electronically signed by: Madi Moreno M.D. Lenora Cooley MD IM XR PROCEDURES Final Result * XR Hand Left 3 or More Views (02/08/2025 12:32 PM [employer]) Anatomical Region Laterality Modality Upper Extremities, Hand Left Computed Radiography 02/08/2025 1:19 PM [employer] Impressions 02/08/2025 1:19 PM [employer] 1. No acute displaced fracture or dislocation. 2. Findings compatible with reported rheumatoid arthritis primarily affecting the left wrist and hand as described above. Scattered superimposed osteoarthritis. Electronically signed by: Madi Moreno M.D. Narrative 02/08/2025 1:19 PM [employer] EXAMINATION/TECHNIQUE: XR HAND LEFT 3 OR MORE VIEWS, XR WRIST LEFT 3 OR MORE VIEWS, XR ELBOW LEFT 3 OR MORE VIEWS, XR SHOULDER LEFT 2 OR MORE VIEWS HISTORY: arthralgia Pain. R/o inflammatory arthritis COMPARISON: 03/03/2024 FINDINGS: Left shoulder: BONES/JOINTS: No acute displaced fracture or dislocation. Mild osteoarthrosis of the acromial clavicular joint. Moderate osteoarthrosis of the glenohumeral joint. SOFT TISSUES: Unremarkable. Left elbow: BONES/JOINTS: No acute displaced fracture or dislocation. No aggressive-appearing osseous lesion. SOFT TISSUES: Numerous vascular and/or dermal calcifications. Chronic enthesopathic change or sequela of remote injury of the sublime tubercle and the lateral humeral epicondyle. No joint effusion. Left wrist: BONES/JOINTS: No acute displaced fracture or dislocation. No aggressive-appearing osseous lesion. 2 small marginal erosions of the distal ulna adjacent to the ulnar styloid. Degenerative changes of the radiocarpal joint with joint space narrowing. SOFT TISSUES: Unremarkable. Left hand: BONES/JOINTS: No acute displaced fracture or dislocation. No aggressive-appearing osseous lesion. Scattered erosions including Large marginal version along the ulnar aspect of the 2nd proximal interphalangeal joint with associated mild lateral subluxation and an erosion of the radial aspect of the distal 3rd metacarpal. Scattered joint space loss most pronounced involving the 2nd and 3rd metacarpophalangeal joints. Scattered superimposed degenerative changes/osteoarthrosis most pronounced involving the 1st carpal metacarpal joint. SOFT TISSUES: Vascular calcifications. Mild soft tissue edema overlying the 2nd proximal interphalangeal joint. Procedure Note Madi Moreno MD - 02/08/2025 EXAMINATION/TECHNIQUE: XR HAND LEFT 3 OR MORE VIEWS, XR WRIST LEFT 3 OR MORE VIEWS, XR ELBOW LEFT 3 OR MORE VIEWS, XR SHOULDER LEFT 2 OR MORE VIEWS HISTORY: arthralgia Pain. R/o inflammatory arthritis COMPARISON: 03/03/2024 FINDINGS: Left shoulder: BONES/JOINTS: No acute displaced fracture or dislocation. Mild osteoarthrosis of the acromial clavicular joint. Moderate osteoarthrosis of the glenohumeral joint. SOFT TISSUES: Unremarkable. Left elbow: BONES/JOINTS: No acute displaced fracture or dislocation. No aggressive-appearing osseous lesion. SOFT TISSUES: Numerous vascular and/or dermal calcifications. Chronic enthesopathic change or sequela of remote injury of the sublime tubercle and the lateral humeral epicondyle. No joint effusion. Left wrist: BONES/JOINTS: No acute displaced fracture or dislocation. No aggressive-appearing osseous lesion. 2 small marginal erosions of the distal ulna adjacent to the ulnar styloid. Degenerative changes of the radiocarpal joint with joint space narrowing. SOFT TISSUES: Unremarkable. Left hand: BONES/JOINTS: No acute displaced fracture or dislocation. No aggressive-appearing osseous lesion. Scattered erosions including Large marginal version along the ulnar aspect of the 2nd proximal interphalangeal joint with associated mild lateral subluxation and an erosion of the radial aspect of the distal 3rd metacarpal. Scattered joint space loss most pronounced involving the 2nd and 3rd metacarpophalangeal joints. Scattered superimposed degenerative changes/osteoarthrosis most pronounced involving the 1st carpal metacarpal joint. SOFT TISSUES: Vascular calcifications. Mild soft tissue edema overlying the 2nd proximal interphalangeal joint. IMPRESSION: 1. No acute displaced fracture or dislocation. 2. Findings compatible with reported rheumatoid arthritis primarily affecting the left wrist and hand as described above. Scattered superimposed osteoarthritis. Electronically signed by: Madi Moreno M.D. Lenora Cooley MD IMG XR PROCEDURES Final Result * X-ray lumbar spine 2 or 3 views (02/08/2025 12:32 PM AIRPORT RAMP SUPERVISOR) Anatomical Region Laterality Modality Spine N/A Computed Radiogr aphy 02/08/2025 2:45 PM AIRPORT RAMP SUPERVISOR Impressions 02/08/2025 2:45 PM AIRPORT RAMP SUPERVISOR 1. No acute osseous abnormality. 2. Moderate diffuse lumbar spondylosis particularly at L2-L3 which has progressed from 2018. Electronically signed by: Yuri Ward M.D. Narrative 02/08/2025 2:45 PM AIRPORT RAMP SUPERVISOR EXAM DESCRIPTION: XR SPINE LUMBAR 2 OR 3 VIEWS REASON FOR STUDY: Arthralgias. Rheumatoid arthritis. TECHNIQUE: AP, lateral, L5-S1 radiographic view(s) of the lumbar spine COMPARISON: Lumbar spine radiographs 01/08/2018, CT abdomen and pelvis 02/11/2024 FINDINGS: ALIGNMENT: Trace retrolisthesis of L2 on L3 is unchanged. VERTEBRAE: No acute fracture. Moderate diffuse lumbar spondylosis most significant at L2-L3. This has progressed from 2018. DISCS: Loss of intervertebral disc space height at L2-L3. SOFT TISSUES: Prostatic calcification of the visualized aorta. Procedure Note Yuri Ward MD - 02/08/2025 EXAM DESCRIPTION: XR SPINE LUMBAR 2 OR 3 VIEWS REASON FOR STUDY: Arthralgias. Rheumatoid arthritis. TECHNIQUE: AP, lateral, L5-S1 radiographic view(s) of the lumbar spine COMPARISON: Lumbar spine radiographs 01/08/2018, CT abdomen and pelvis 02/11/2024 FINDINGS: ALIGNMENT: Trace retrolisthesis of L2 on L3 is unchanged. VERTEBRAE: No acute fracture. Moderate diffuse lumbar spondylosis most significant at L2-L3. This has progressed from 2018. DISCS: Loss of intervertebral disc space height at L2-L3. SOFT TISSUES: Prostatic calcification of the visualized aorta. IMPRESSION: 1. No acute osseous abnormality. 2. Moderate diffuse lumbar spondylosis particularly at L2-L3 which has progressed from 2018. Electronically signed by: Yuri Ward, M.D. us Lenora Cooley MD IMG XR PROCEDURES Final Result documented in this encounter Visit Diagnoses Diagnosis Rheumatoid arthritis involving multiple sites, unspecified whether rheumatoid factor present (HCC) Osteoporosis, unspecified osteoporosis type, unspecified pathological fracture presence documented in this encounter Care Teams Spanish Lecturer Relationship Specialty Start Date End Date Dre Zavaleta DO [address] [place] [id number] PCP - General Internal Medicine 01/14/24 [place] [id number] [place] [address] Consulting Physician Pulmonary Disease 06/25/20 Arpit Han MD PhD [address] [place] [address] Radiation Oncologist Radiation Oncology 10/04/21 [place] [address] [address] Referring Physician Pulmonary Disease 10/04/21 Harvey Alex MD [address] [place] [id number] Referring Physician Hematology 02/01/22 documented as of this encounter
[2025-02-10 13:14] LABS: Hematocrit 40.3 % (42.0-52.0); Hemoglobin 13.1 g/dL (14.0-18.0); Immature Granulocyte Percent A 0.8 % (0-0.5); Lymphocytes Absolute Auto 1.04 K/mm3 (0.9-3.2); Mean Corpuscular HGB Conc 32.5 g/dl (32-36); Mean Corpuscular Hemoglobin 29.5 pg (26-34); Mean Corpuscular Volume 90.8 fl (80-100); Nucleated Red Blood Cells Absolute Auto 0.000 K/mm3 (0.0-0.012); Nucleated Red Blood Cells Perc 0.0 % (0.0-0.2); Platelet Count Result 180 k/mm3 (150-375); Red Blood Count 4.44 M/mm3 (4.6-6.20); White Blood Count 11.6 K/mm3 (4.5-10.0)
[2025-02-10 14:33] LABS: Alanine Aminotransferase 33 U/L (6-50); Albumin Level 3.5 g/dL (3.5-5.1); Alkaline Phosphatase 177 U/L (38-126); Anion Gap 7 mmol/L (4-12); Aspartate Amino Transferase 41 U/L (17-59); Bilirubin,Total 0.6 mg/dL (0.2-1.3); Blood Urea Nitrogen 28 mg/dL (9-20); Calcium 9.2 mg/dL (8.4-10.2); Carbon Dioxide 26 mmol/L (22-30); Chloride 99 mmol/L (98-107); Estimated Glomerular Filt Rate 35; Glucose 116 mg/dL (65-110); Potassium 4.5 mmol/L (3.4-5.0); Sodium 132 mmol/L (137-145); Total Protein 6.6 g/dL (6.3-8.2)
--- OUTSIDE RECORDS SUMMARY | 2025-02-10 19:39 | XMS_ITS | Encounter Summary ---
Author Organization [facility] Health Address [address] [place] [address] Care Team Providers Care Mmd Unit Teacher Name Role Phone Julius Encinas MD Primary Care Provider [phone] Valeriy Lawson MD Unavailable [phone] Encounter Details Date Type Department Care Team (Late st Contact Info) Description 09/23/2013 [facility] Outpatient Visit EXTERNAL NON-[facility] DEPT Valeriy Lawson MD [address] [place] [id number] Social History Tobacco Use Types Packs/Day Years Used Date Smoking Tobacco: Former Cigarettes 0 09/20/1992 - 09/20/2000 Smokeless Tobacco: Never Comments:unk date and mon Alcohol Use Standard Drinks/Week Comments No 0 (1 standard drink = 0.6 oz pur e alcohol) Sex and Gender Information Value Date Recorded Sex Assigned at Not on file Legal Sex 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
--- OUTSIDE RECORDS SUMMARY | 2025-02-10 19:39 | XMS_ITS | Encounter Summary ---
Author Organization [facility] Health Address [address] [place] [address] Care Team Providers Care Outdoor Guide Name Role Phone Julius Encinas MD Primary Care Provider [phone] Valeriy Lawson MD Unavailable [phone] Encounter Details Date Type Department Care Team (Late st Contact Info) Description 05/04/2013 [facility] Outpatient Visit EXTERNAL NON-[facility] DEPT Valeriy Lawson MD [address] [place] [id number] Social History Tobacco Use Types Packs/Day Years Used Date Smoking Tobacco: Former Cigarettes 0 09/20/1992 - 09/20/2000 Smokeless Tobacco: Never Comments:unk date and mon Alcohol Use Standard Drinks/Week Comments No 0 (1 standard drink = 0.6 oz pur e alcohol) Sex and Gender Information Value Date Recorded Sex Assigned at Not on file 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
--- OUTSIDE RECORDS SUMMARY | 2025-02-10 19:39 | XMS_ITS ---
Author Organization [facility] Address [address] [place] [address] Care Team Providers Care Belt And Link Assembly Supervisor Name Role Phone Zia Mercedes MD Unavailable [phone] Arpit Han MD PhD Unavailable [phone] Zia Mercedes MD Unavailable [phone] Harvey Alex MD Unavailable [phone] Dre Zavaleta DO Primary Care Provider [phone] Active Problems Problem Noted Date Diagnosed Date [...] on chronic respiratory failure with hypoxi a ([facility]) 06/04/2020 Assessment & Plan (08/09/2021 [...] 06/04/2020 Assessment & Plan (06/04/2020 6:00 PM MECHANICAL EXPERT): Mild elevation of AST and ALT most likely due to acute infection. Will monitor while on remdesivir. Respiratory alkalosis 06/04/2020 Assessment & Plan (06/04/2020 6:01 PM MECHANICAL EXPERT): Due to hyperventilation from hypoxia on admission. Monitor respiratory function with supplemental oxygen. Chronic obstructive pulmonar y disease with acute exacerbation ([facility]) 06/04/2020 Assessment & Plan (08/09/2021 1:52 PM CDT): Patient on prednisone, symbicort, and albuterol prn at home. - continue home meds - Mucinex DM and Tessalon perles added for cough Assessment & Plan (08/09/2021 1:35 AM CDT): Continue breathing treatments Assessment & Plan (06/04/2020 6:02 PM MECHANICAL EXPERT): Mild COPD exacerbation due to COVID-19, breath sounds diminished with mild end expiratory wheezing and a cough productive of small amounts of yellow sputum. Continue steroids for COVID-19 along with home Symbicort and albuterol p.r.n. COVID-19 05/29/2020 Assessment & Plan (06/04/2020 6:04 PM MECHANICAL EXPERT): Shortness of breath worsened since initial diagnosis [...] 05/29/2020 Assessment & Plan (06/04/2020 5:59 PM MECHANICAL EXPERT): Unable to obtain CTA chest because of allergy to IV contrast, but symptoms are not suggestive of acute the and D-dimer is very slightly above the threshold for normal. Will treat with Lovenox at half therapeutic dose because of COVID-19. Rheumatoid arthritis involvi ng multiple sites with positive rheumatoid factor ([facility]) 05/29/2020 Assessment & Plan (08/09/2021 1:49 PM CDT): Holding Plaquenil and Celebrex. Continue prednisone daily. Assessment & Plan (08/09/2021 1:33 AM CDT): Holding Plaquenil. Continue prednisone daily. Assessment & Plan (06/04/2020 5:57 PM MECHANICAL EXPERT): Continue home RA regimen, will need to [...] ordered Assessment & Plan (06/04/2020 5:58 PM MECHANICAL EXPERT): Uses CPAP at home, but does not [...]
--- OUTSIDE RECORDS SUMMARY | 2025-02-10 19:39 | XMS_ITS | Clinical Summary ---
Author Organization [facility] Address [address] [place] [address] Care Team Providers Care Therapy Site Coordinator Name Role Phone Zia Mercedes MD Unavailable [phone] Arpit patton MD PhD Unavailable [phone] Zia Mercedes MD Unavailable [phone] Harvey Alex MD Unavailable [phone] Dre Zavaleta DO Primary Care Provider [phone] Allergies Active Allergy Reactions Criticality Noted Date [...] daily 10 tablet 02/08/20 25 026 Active etanercept (ENBREL) 50 mg/mL (1 mL) pen injector Inject 1 mL (50 mg total) under the skin once a week 4 mL 5 02/11/20 25 Active celecoxib (CeleBREX) 200 mg capsule Take [...] on chronic respiratory failure with hypoxi a ([facility]) 06/04/2020 [...] 06/04/2020 Assessment & Plan (06/04/2020 6:00 PM SENIOR INFORMATION SECURITY ARCHITECT): Mild elevation of AST and ALT most likely due to acute infection. Will monitor while on remdesivir. Respiratory alkalosis 06/04/2020 Assessment & Plan (06/04/2020 6:01 PM SENIOR INFORMATION SECURITY ARCHITECT): Due to hyperventilation from hypoxia on admission. Monitor respiratory function with supplemental oxygen. Chronic obstructive pulmonar y disease with acute exacerbation ([facility]/HCC) 06/04/2020 Assessment & Plan (08/09/2021 1:52 PM CDT): Patient on prednisone, symbicort, and albuterol prn at home. - continue home meds - Mucinex DM and Tessalon perles added for cough Assessment & Plan (08/09/2021 1:35 AM CDT): Continue breathing treatments Assessment & Plan (06/04/2020 6:02 PM SENIOR INFORMATION SECURITY ARCHITECT): Mild COPD exacerbation due to COVID-19, breath sounds diminished with mild end expiratory wheezing and a cough productive of small amounts of yellow sputum. Continue steroids for COVID-19 along with home Symbicort and albuterol p.r.n. COVID-19 05/29/2020 Assessment & Plan (06/04/2020 6:04 PM SENIOR INFORMATION SECURITY ARCHITECT): Shortness of breath worsened since initial diagnosis [...] 05/29/2020 Assessment & Plan (06/04/2020 5:59 PM SENIOR INFORMATION SECURITY ARCHITECT): Unable to obtain CTA chest because of allergy to IV contrast, but symptoms are not suggestive of acute the and D-dimer is very slightly above the threshold for normal. Will treat with Lovenox at half therapeutic dose because of COVID-19. Rheumatoid arthritis involvi ng multiple sites with positive rheumatoid factor ([facility]) 05/29/2020 Assessment & Plan (08/09/2021 1:49 PM CDT): Holding Plaquenil and Celebrex. Continue prednisone daily. Assessment & Plan (08/09/2021 1:33 AM CDT): Holding Plaquenil. Continue prednisone daily. Assessment & Plan (06/04/2020 5:57 PM SENIOR INFORMATION SECURITY ARCHITECT): Continue home RA regimen, will need to [...] ordered Assessment & Plan (06/04/2020 5:58 PM SENIOR INFORMATION SECURITY ARCHITECT): Uses CPAP at home, but does not [...] Encounters Date Type Department Care Team Description 02/10/2025 Telephone [facility] [address] [place] [address] Morgan Mora RPh Prior Auth 02/08/2025 11:50 AM SENIOR INFORMATION SECURITY ARCHITECT Lab [address] [address] Rheumatoid arthritis involving multiple sites, unspecified whether rheumatoid factor present (HCC); High risk medication use 02/08/2025 11:43 AM SENIOR INFORMATION SECURITY ARCHITECT - 02/08/2025 11:59 PM SENIOR INFORMATION SECURITY ARCHITECT Hospital Encounter [facility] [address] [place] [id number] Rheumatoid arthritis involving multiple sites, unspecified whether rheumatoid factor present (HCC); Osteoporosis, unspecified osteoporosis type, unspecified pathological fracture presence Discharge Disposition: Discharge to home or self care 02/07/2025 10:00 AM SENIOR INFORMATION SECURITY ARCHITECT Office Visit [facility]ology [address] [place] [address] Lenora Farias MD Rheumatoid arthritis involving multiple sites, unspecified whether rheumatoid factor present (HCC) (Primary Dx); High risk medication use; Osteoporosis, unspecified osteoporosis type, unspecified pathological fracture presence 12/27/2024 Telephone [facility]ology [address] [place] [address] Ashlyn Travis RMA WANTING TO BE A NEW PATIENT from [...] right thigh Kidney stones Esophageal spasm Pneumonia 2014 Arthritis rheumatoid Hypertension Emphysema of lung Sleep [...] on file Legal Sex Male 1:51 AM SENIOR INFORMATION SECURITY ARCHITECT Gender Identity Not on file Sexual Orientation Not on file Last Filed Vital Signs Vital Sign Reading Time Taken Comments Blood Pressure 144/70 02/07/2025 9:42 AM SENIOR INFORMATION SECURITY ARCHITECT Pulse 97 02/07/2025 9:42 AM SENIOR INFORMATION SECURITY ARCHITECT Temperature 37 C (98.6 F) 08/21/2024 12:53 PM CDT Respiratory Rate 19 08/21/2024 8:10 PM CDT Oxygen Saturation 93% 02/07/2025 9:42 AM SENIOR INFORMATION SECURITY ARCHITECT is on oxygen Inhaled Oxygen Concentration - - Weight 93 kg (205 lb) 02/07/2025 9:42 AM SENIOR INFORMATION SECURITY ARCHITECT Height 170.2 cm (5' 7) 02/07/2025 9:42 AM SENIOR INFORMATION SECURITY ARCHITECT Body Mass Index 32.11 02/07/2025 9:42 AM SENIOR INFORMATION SECURITY ARCHITECT Plan of Treatment Health Maintenance Due Date [...] A1C 06/07/2025 12/08/2024, 03/0 11/2020, 12/23/2018 eGFR 02/08/2026 02/08/2025, 05/1 10/2024, 03/03/2024, Additional history exists Abdominal Aortic Aneurysm (A AA) Screen Completed 01/21/2023, 07/15/2022, 06/27/2017 Goals Goal Patient Goal Type Associated Problems Recent Progress Patient-Stated? Author [facility] No Estelita Ornelas, RN Note: Pt would like to complete ADLs, ride motorcycle with minimal pain. Medical Devices Implanted Type Area Organizational Development Specialist Device Identifier Shelf Expiration Date Model / Serial / Lot Other-See Comments Other - see comments Bilatera l: Knee Description:R. Total knee- 2 020 L. Total Knee-2014 Procedures Procedure Name Priority Date/Time Associated Diagnosis Comments XR FOOT LEFT 3 OR MORE VIEWS Routine 02/08/2025 12:32 PM SENIOR INFORMATION SECURITY ARCHITECT Rheumatoid arthritis involving multiple sites, unspecified whether rheumatoid factor present (HCC) XR FOOT RIGHT 3 OR MORE VIEWS Routine 02/08/2025 12:32 PM SENIOR INFORMATION SECURITY ARCHITECT Rheumatoid arthritis involving multiple sites, unspecified whether rheumatoid factor present (HCC) XR SPINE CERVICAL W FLEXION AND EXTENSION 4 VIEWS Routine 02/08/2025 12:32 PM SENIOR INFORMATION SECURITY ARCHITECT Rheumatoid arthritis involving multiple sites, unspecified whether rheumatoid factor present (HCC) XR SHOULDER LEFT 2 OR MORE VIEWS Routine 02/08/2025 12:32 PM SENIOR INFORMATION SECURITY ARCHITECT Rheumatoid arthritis involving multiple sites, unspecified whether rheumatoid factor present (HCC) XR SHOULDER RIGHT 2 OR MORE VIEWS Routine 02/08/2025 12:32 PM SENIOR INFORMATION SECURITY ARCHITECT Rheumatoid arthritis involving multiple sites, unspecified whether rheumatoid factor present (HCC) XR ELBOW RIGHT 3 OR MORE VIEWS Routine 02/08/2025 12:32 PM SENIOR INFORMATION SECURITY ARCHITECT Rheumatoid arthritis involving multiple sites, unspecified whether rheumatoid factor present (HCC) XR ELBOW LEFT 3 OR MORE VIEWS Routine 02/08/2025 12:32 PM SENIOR INFORMATION SECURITY ARCHITECT Rheumatoid arthritis involving multiple sites, unspecified whether rheumatoid factor present (HCC) XR WRIST LEFT 3 OR MORE VIEWS Routine 02/08/2025 12:32 PM SENIOR INFORMATION SECURITY ARCHITECT Rheumatoid arthritis involving multiple sites, unspecified whether rheumatoid factor present (HCC) XR WRIST RIGHT 3 OR MORE VIEWS Routine 02/08/2025 12:32 PM SENIOR INFORMATION SECURITY ARCHITECT Rheumatoid arthritis involving multiple sites, unspecified whether rheumatoid factor present (HCC) XR HAND RIGHT 3 OR MORE VIEWS Routine 02/08/2025 12:32 PM SENIOR INFORMATION SECURITY ARCHITECT Rheumatoid arthritis involving multiple sites, unspecified whether rheumatoid factor present (HCC) XR HAND LEFT 3 OR MORE VIEWS Routine 02/08/2025 12:32 PM SENIOR INFORMATION SECURITY ARCHITECT Rheumatoid arthritis involving multiple sites, unspecified whether rheumatoid factor present (HCC) XR SPINE LUMBAR 2 OR 3 VIEWS Schedule Routine, Read Routine (OP Routine) 02/08/2025 12:32 PM SENIOR INFORMATION SECURITY ARCHITECT Rheumatoid arthritis involving multiple sites, unspecified whether rheumatoid factor present (HCC) Osteoporosis, unspecified osteoporosis type, unspecified pathological fracture presence EGFR Routine 02/08/2025 12:05 PM SENIOR INFORMATION SECURITY ARCHITECT Rheumatoid arthritis involving multiple sites, unspecified whether rheumatoid factor present (HCC) DIFFERENTIAL AUTO Routine 02/08/2025 12: 05 PM SENIOR INFORMATION SECURITY ARCHITECT Rheumatoid arthritis involving multiple sites, unspecified whether rheumatoid factor present (HCC) TB TEST, QUANTIFERON GOLD Routine 02/08/2025 12:05 PM SENIOR INFORMATION SECURITY ARCHITECT CRP (ACUTE PHASE) Routine 02/08/2025 12: 05 PM SENIOR INFORMATION SECURITY ARCHITECT Rheumatoid arthritis involving multiple sites, unspecified whether rheumatoid factor present (HCC) CBC WITH AUTO DIFFERENTIAL Routine 02/08/2025 12:05 PM SENIOR INFORMATION SECURITY ARCHITECT Rheumatoid arthritis involving multiple sites, unspecified whether rheumatoid factor present (HCC) COMPREHENSIVE METABOLIC PANEL Routine 02/08/2025 12:05 PM SENIOR INFORMATION SECURITY ARCHITECT Rheumatoid arthritis involving multiple sites, unspecified whether rheumatoid factor present (HCC) ERYTHROCYTE SEDIMENTATION RATE Routine 02/08/2025 12:05 PM SENIOR INFORMATION SECURITY ARCHITECT Rheumatoid arthritis involving multiple sites, unspecified whether rheumatoid factor present (HCC) RHEUMATOID FACTOR Routine 02/08/2025 12: 05 PM SENIOR INFORMATION SECURITY ARCHITECT Rheumatoid arthritis involving multiple sites, unspecified whether rheumatoid factor present (HCC) CYCLIC CITRUL PEPTIDE ANTIBODY, IGG Routine 02/08/2025 12:05 PM SENIOR INFORMATION SECURITY ARCHITECT Rheumatoid arthritis involving multiple sites, unspecified whether rheumatoid factor present (HCC) BECKY QUALITATIVE WITH REFLEX TO BECKY QUANTITATIVE Routine 02/08/2025 12:05 PM SENIOR INFORMATION SECURITY ARCHITECT Rheumatoid arthritis involving multiple sites, unspecified whether rheumatoid factor present (HCC) ANTI-DOUBLE STRANDED DNA ANTIBODIES Routine 02/08/2025 12:05 PM SENIOR INFORMATION SECURITY ARCHITECT Rheumatoid arthritis involving multiple sites, unspecified whether rheumatoid factor present (HCC) ROMEO ANTIBODY EVALUATION WITH REFLEX Routine 02/08/2025 12:05 PM SENIOR INFORMATION SECURITY ARCHITECT Rheumatoid arthritis involving multiple sites, unspecified whether rheumatoid factor present (HCC) HEPATITIS B CORE ANTIBODY, TOTAL Routine 02/08/2025 12:05 PM SENIOR INFORMATION SECURITY ARCHITECT High risk medication use HEPATITIS B SURFACE ANTIBODY (IMMUNE STATUS) Routine 02/08/2025 12:05 PM SENIOR INFORMATION SECURITY ARCHITECT High risk medication use HEPATITIS B SURFACE ANTIGEN Routine 02/08/2025 12:05 PM SENIOR INFORMATION SECURITY ARCHITECT High risk medication use HEPATITIS C ANTIBODY Routine 02/08/2025 12:05 PM SENIOR INFORMATION SECURITY ARCHITECT High risk medication use CT CHEST ABDOMEN PELVIS WO CONTRAST Schedule Routine, Read Routine (OP Routine) 01/21/2023 11:07 AM CDT HEMOGLOBIN A1C Add-On 06/12/2020 11:07 AM SENIOR INFORMATION SECURITY ARCHITECT from Last 3 Months or Most Recently Relevant to Health Maintenance Results * XR Spine Cervical W Flexion And Extension 4 or 5 Views (02/08/2025 12:32 PM SENIOR INFORMATION SECURITY ARCHITECT) Anatomical Region Laterality Modality Spine N/A Computed Radiogr aphy 02/08/2025 1:33 PM SENIOR INFORMATION SECURITY ARCHITECT Impressions 02/08/2025 1:33 PM SENIOR INFORMATION SECURITY ARCHITECT 1. No definite acute osseous abnormality. 2. Advanced multilevel degenerative changes of the cervical spine with multilevel high-grade neural foraminal narrowing suboptimally evaluated by radiograph. 3. No obvious erosions or convincing evidence of inflammatory arthropathy. Electronically signed by: Madi Moreno M.D. Narrative 02/08/2025 1:33 PM SENIOR INFORMATION SECURITY ARCHITECT EXAMINATION/TECHNIQUE: XR SPINE CERVICAL W FLEXION AND [...] 3 or More Views (02/08/2025 12:32 PM SENIOR INFORMATION SECURITY ARCHITECT) Anatomical Region Laterality Modality Lower Extremities, Foot Right Computed Radiography 02/08/2025 1:39 PM SENIOR INFORMATION SECURITY ARCHITECT Impressions 02/08/2025 1:39 PM SENIOR INFORMATION SECURITY ARCHITECT No acute osseous abnormality. Scattered degenerative changes. No obvious erosions or convincing evidence of inflammatory arthropathy. Electronically signed by: Madi Moreno M.D. Narrative 02/08/2025 1:39 PM SENIOR INFORMATION SECURITY ARCHITECT EXAMINATION/TECHNIQUE: XR FOOT RIGHT 3 OR MORE [...] XR PROCEDURES Final Result * XR Foot Left 3 or More Views (02/08/2025 12:32 PM SENIOR INFORMATION SECURITY ARCHITECT) Anatomical Region Laterality Modality Lower Extremities, Foot Left Computed Radiography 02/08/2025 1:41 PM SENIOR INFORMATION SECURITY ARCHITECT Impressions 02/08/2025 1:41 PM SENIOR INFORMATION SECURITY ARCHITECT No acute osseous abnormality. No obvious erosions or convincing evidence of inflammatory arthropathy. Electronically signed by: Madi Moreno M.D. Narrative 02/08/2025 1:41 PM SENIOR INFORMATION SECURITY ARCHITECT EXAMINATION/TECHNIQUE: XR FOOT LEFT 3 OR MORE [...] 3 or More Views (02/08/2025 12:32 PM SENIOR INFORMATION SECURITY ARCHITECT) Anatomical Region Laterality Modality Upper Extremities, Hand Right Computed Radiography 02/08/2025 1:29 PM SENIOR INFORMATION SECURITY ARCHITECT Impressions 02/08/2025 1:29 PM SENIOR INFORMATION SECURITY ARCHITECT 1. No acute displaced fracture or dislocation. 2. Findings compatible with reported rheumatoid arthritis primarily affecting the right wrist and hand as described above. Scattered superimposed osteoarthritis. Electronically signed by: Madi Moreno M.D. Narrative 02/08/2025 1:29 PM SENIOR INFORMATION SECURITY ARCHITECT EXAMINATION/TECHNIQUE: XR HAND RIGHT 3 OR MORE [...] 3 or More Views (02/08/2025 12:32 PM SENIOR INFORMATION SECURITY ARCHITECT) Anatomical Region Laterality Modality Upper Extremities, Hand Left Computed Radiography 02/08/2025 1:19 PM SENIOR INFORMATION SECURITY ARCHITECT Impressions 02/08/2025 1:19 PM SENIOR INFORMATION SECURITY ARCHITECT 1. No acute displaced fracture or dislocation. 2. Findings compatible with reported rheumatoid arthritis primarily affecting the left wrist and hand as described above. Scattered superimposed osteoarthritis. Electronically signed by: Madi Moreno M.D. Narrative 02/08/2025 1:19 PM SENIOR INFORMATION SECURITY ARCHITECT EXAMINATION/TECHNIQUE: XR HAND LEFT 3 OR MORE [...] 3 or More Views (02/08/2025 12:32 PM SENIOR INFORMATION SECURITY ARCHITECT) Anatomical Region Laterality Modality Upper Extremities, Wrist Right Compute d Radiography 02/08/2025 1:29 PM SENIOR INFORMATION SECURITY ARCHITECT Impressions 02/08/2025 1:29 PM SENIOR INFORMATION SECURITY ARCHITECT 1. No acute displaced fracture or dislocation. 2. Findings compatible with reported rheumatoid arthritis primarily affecting the right wrist and hand as described above. Scattered superimposed osteoarthritis. Electronically signed by: Madi Moreno M.D. Narrative 02/08/2025 1:29 PM SENIOR INFORMATION SECURITY ARCHITECT EXAMINATION/TECHNIQUE: XR HAND RIGHT 3 OR MORE [...] 3 or More Views (02/08/2025 12:32 PM SENIOR INFORMATION SECURITY ARCHITECT) Anatomical Region Laterality Modality Upper Extremities, Wrist Left Compute d Radiography 02/08/2025 1:19 PM SENIOR INFORMATION SECURITY ARCHITECT Impressions 02/08/2025 1:19 PM SENIOR INFORMATION SECURITY ARCHITECT 1. No acute displaced fracture or dislocation. 2. Findings compatible with reported rheumatoid arthritis primarily affecting the left wrist and hand as described above. Scattered superimposed osteoarthritis. Electronically signed by: Madi Moreno M.D. Narrative 02/08/2025 1:19 PM SENIOR INFORMATION SECURITY ARCHITECT EXAMINATION/TECHNIQUE: XR HAND LEFT 3 OR MORE [...] 3 or More Views (02/08/2025 12:32 PM SENIOR INFORMATION SECURITY ARCHITECT) Anatomical Region Laterality Modality Upper Extremities, Elbow Right Compute d Radiography 02/08/2025 1:29 PM SENIOR INFORMATION SECURITY ARCHITECT Impressions 02/08/2025 1:29 PM SENIOR INFORMATION SECURITY ARCHITECT 1. No acute displaced fracture or dislocation. 2. Findings compatible with reported rheumatoid arthritis primarily affecting the right wrist and hand as described above. Scattered superimposed osteoarthritis. Electronically signed by: Madi Moreno M.D. Narrative 02/08/2025 1:29 PM SENIOR INFORMATION SECURITY ARCHITECT EXAMINATION/TECHNIQUE: XR HAND RIGHT 3 OR MORE [...] 3 or More Views (02/08/2025 12:32 PM SENIOR INFORMATION SECURITY ARCHITECT) Anatomical Region Laterality Modality Upper Extremities, Elbow Left Compute d Radiography 02/08/2025 1:19 PM SENIOR INFORMATION SECURITY ARCHITECT Impressions 02/08/2025 1:19 PM SENIOR INFORMATION SECURITY ARCHITECT 1. No acute displaced fracture or dislocation. 2. Findings compatible with reported rheumatoid arthritis primarily affecting the left wrist and hand as described above. Scattered superimposed osteoarthritis. Electronically signed by: Madi Moreno M.D. Narrative 02/08/2025 1:19 PM SENIOR INFORMATION SECURITY ARCHITECT EXAMINATION/TECHNIQUE: XR HAND LEFT 3 OR MORE [...] 2 or More Views (02/08/2025 12:32 PM SENIOR INFORMATION SECURITY ARCHITECT) Anatomical Region Laterality Modality Upper Extremities, Shoulder Right Comp uted Radiography 02/08/2025 1:29 PM SENIOR INFORMATION SECURITY ARCHITECT Impressions 02/08/2025 1:29 PM SENIOR INFORMATION SECURITY ARCHITECT 1. No acute displaced fracture or dislocation. 2. Findings compatible with reported rheumatoid arthritis primarily affecting the right wrist and hand as described above. Scattered superimposed osteoarthritis. Electronically signed by: Madi Moreno M.D. Narrative 02/08/2025 1:29 PM SENIOR INFORMATION SECURITY ARCHITECT EXAMINATION/TECHNIQUE: XR HAND RIGHT 3 OR MORE [...] 2 or More Views (02/08/2025 12:32 PM SENIOR INFORMATION SECURITY ARCHITECT) Anatomical Region Laterality Modality Upper Extremities, Shoulder Left Comp uted Radiography 02/08/2025 1:19 PM SENIOR INFORMATION SECURITY ARCHITECT Impressions 02/08/2025 1:19 PM SENIOR INFORMATION SECURITY ARCHITECT 1. No acute displaced fracture or dislocation. 2. Findings compatible with reported rheumatoid arthritis primarily affecting the left wrist and hand as described above. Scattered superimposed osteoarthritis. Electronically signed by: Madi Moreno M.D. Narrative 02/08/2025 1:19 PM SENIOR INFORMATION SECURITY ARCHITECT EXAMINATION/TECHNIQUE: XR HAND LEFT 3 OR MORE [...] 2 or 3 views (02/08/2025 12:32 PM SENIOR INFORMATION SECURITY ARCHITECT) Anatomical Region Laterality Modality Spine N/A Computed Radiogr aphy 02/08/2025 2:45 PM SENIOR INFORMATION SECURITY ARCHITECT Impressions 02/08/2025 2:45 PM SENIOR INFORMATION SECURITY ARCHITECT 1. No acute osseous abnormality. 2. Moderate diffuse lumbar spondylosis particularly at L2-L3 which has progressed from 2018. Electronically signed by: Yuri Ward M.D. Narrative 02/08/2025 2:45 PM SENIOR INFORMATION SECURITY ARCHITECT EXAM DESCRIPTION: XR SPINE LUMBAR 2 OR [...] 2018. Electronically signed by: Yuri Ward M.D. Lenora Cooley MD IMG XR PROCEDURES Final Result * BECKY ab ql w/rflx to BECKY qn (02/08/2025 12:05 PM SENIOR INFORMATION SECURITY ARCHITECT) BECKY Negative Comment: Interpretive Data Normal range for BECKY Qualitative Antibody = Negative. 1. BECKY is performed using indirect immunofluorescence against HEp-2 cells 2. BECKY titers are performed on all positive qualitative results. 3. A significantly positive BECKY result is defined as a positive nuclear fluorescence at a titer of 1:80 or greater. 4. 15% of normal people above age 65 have significantly positive BECKY results. 5% or less of normal people age 65 or under have significantly positive BECKY results. Current interpretive data was last revised on 2019. Testing performed by: [facility], [address] [place]., [address] Blood 02/08/2025 12:0 5 PM SENIOR INFORMATION SECURITY ARCHITECT 02/08/2025 2:24 PM SENIOR INFORMATION SECURITY ARCHITECT Lenora Cooley MD LAB BL OOD ORDERABLES Final Result Performing Organization Address [facility] Co de Phone Number [facility] ([place]) [address] [facility] [employer] [place] [address] * Anti-double stranded DNA abs (02/08/2025 12:05 PM SENIOR INFORMATION SECURITY ARCHITECT) Pathologist [facility] dsDNA Ab <1.0 <=4.0 IUnits/mL Comment: Interpretive Data Negative: < or = 4 IUnits/mL Indeterminate: 5 - 9 IUnits/mL Positive: > or = 10 IUnits/mL Current interpretive data was last revised on 2016. Testing performed by: [facility], [address] [place]., [address] Blood 02/08/2025 12:0 5 PM SENIOR INFORMATION SECURITY ARCHITECT 02/08/2025 2:25 PM SENIOR INFORMATION SECURITY ARCHITECT Lenora Cooley MD LAB BL OOD ORDERABLES Final Result Performing Organization Address City/[facility] Co de Phone Number [facility] ([place]) [address] [facility] [employer] [place] [address] * (ABNORMAL) eGFR (02/08/2025 12:05 PM SENIOR INFORMATION SECURITY ARCHITECT) [facility] eGFR 35(L) >=60 mL/min/1. 73 m2 Comment: Interpretive Data [...] interpretive data was last reviewed 2021. Blood 02/08/2025 12:0 5 PM SENIOR INFORMATION SECURITY ARCHITECT 02/08/2025 12:14 PM SENIOR INFORMATION SECURITY ARCHITECT Lenora Cooley MD LAB BL OOD ORDERABLES Final Result [facility] ([place]) 1 [facility] [place] [address] * (ABNORMAL) Differential, auto (02/08/2025 12:05 PM SENIOR INFORMATION SECURITY ARCHITECT) Neutrophil abs 8.90(H) 1.50 - 6.50 K/cumm Imm gran abs 0.11(H) 0.00 - 0.10 K/cumm [facility] ([place]) Lymphocyte abs 1.08 0.80 - 3.30 K/cumm [facility] ([place]) Monocyte abs 0.94(H) 0.20 - 0.80 K/cumm [facility] ([place]) Eosinophil abs 0.21 0.00 - 0.50 K/cumm [facility] ([place]) Basophil abs 0.05 0.00 - 0.10 K/cumm [facility] ([place]) Neutrophil pct 78.8 % [facility] R [facility] ([place]) Comment: Interpretive Data Percent cell count reference ranges are not reported, since discordance with absolute values may lead to misinterpretation of CBC data. Current Interpretive Data was last revised on 2017. Imm gran pct 1.0 % [facility] ([place]) Comment: Interpretive Data Percent cell count reference ranges are not reported, since discordance with absolute values may lead to misinterpretation of CBC data. Current Interpretive Data was last revised on 2017. Lymphocyte pct 9.6 % ROXANNA [facility] ([place]) Comment: Interpretive Data Percent cell count reference ranges are not reported, since discordance with absolute values may lead to misinterpretation of CBC data. Current Interpretive Data was last revised on 2017. Monocyte pct 8.3 % [facility] ([place]) Comment: Interpretive Data Percent cell count reference ranges are not reported, since discordance with absolute values may lead to misinterpretation of CBC data. Current Interpretive Data was last revised on 2017. Eosinophil pct 1.9 % ROXANNA BOWMAN ([place]) Comment: Interpretive Data Percent cell count reference ranges are not reported, since discordance with absolute values may lead to misinterpretation of CBC data. Current Interpretive Data was last revised on 2017. Basophil pct 0.4 % [facility] ([place]) Comment: Interpretive Data Percent cell count reference ranges are not reported, since discordance with absolute values may lead to misinterpretation of CBC data. Current Interpretive Data was last revised on 2017. Blood 02/08/2025 12:0 5 PM SENIOR INFORMATION SECURITY ARCHITECT 02/08/2025 12:14 PM SENIOR INFORMATION SECURITY ARCHITECT Lenora Cooley MD LAB BL OOD ORDERABLES Final Result ALICIA COLBY (CHANDLER) 1 [facility] Department [place] [address] * ROMEO ab eval w/reflex (02/08/2025 12:05 PM SENIOR INFORMATION SECURITY ARCHITECT) ROMEO ab Negative Negative Comment: Interpretive Data Positive Screens will be reflexed to specific testing for Antibodies against the following antigens: Sandrine-1 Ab, PAINTER SKI EDGE Ab, Scl-70 Ab, Escalera Ab, SS-A/Ro Ab, and SS- B/La Ab. Further testing for dsDNA, Centromere, or Ribosomal P antibodies is suggested in patient with a positive screen and negative specific antibodies. Current interpretive data was last revised on 2022. Testing performed by: [facility], [address] [facility], [place]., [address] Blood 02/08/2025 12:0 5 PM SENIOR INFORMATION SECURITY ARCHITECT 02/08/2025 2:25 PM SENIOR INFORMATION SECURITY ARCHITECT Result [facility] Lenora Cooley MD LAB BL OOD ORDERABLES Final Result [facility] (DAVION) 1 [facility] Department [place] [address] * TB test, quantiferon gold (02/08/2025 12:05 PM SENIOR INFORMATION SECURITY ARCHITECT) [facility] Quantiferon TB Gold Negative Negative [place] ref Lab Comment: No interferon-gamma response to M. tuberculosis antigens was detected. Latent infection with M. tuberculosis is unlikely. A single negative result does not exclude infection with M. tuberculosis. In patients at high risk for M.tuberculosis infection, a second test should be considered in accordance with the 2017 ATS/IDSA/CDC Clinical Practice Guidelines for Diagnosis of Tuberculosis in Adults and Children [Lewinsohn DM et. al. Clin. Infect. Dis. 2017;64(2):111-115]. The reference range for the 'TB1 Ag minus Nil Result' and 'TB2 Ag minus Nil Result' is an Interferon-gamma level <0.35 IU/mL. TB-Nil 0.00 IUnits/mL [facility] (DAVION) TB2-Nil 0.00 IUnits/mL [facility] ([place]) Mitogen-Nil 9.98 IUnits/mL [facility] (DAVION) NIL 0.02 IUnits/mL [facility] (DAVION) Comment: Test Performed by: [facility] - [address] [address] Specialty Manufacturing Supervisor: Chrissy Coleman Ph.D.; CLIA# [id number] Blood 02/08/2025 12:0 5 PM SENIOR INFORMATION SECURITY ARCHITECT 02/08/2025 12:14 PM SENIOR INFORMATION SECURITY ARCHITECT Lenora Cooley MD LAB BL OOD ORDERABLES Final Result [facility] (DAVION) 1 [facility] [employer] [place] [address] [facility] ref [facility] * (ABNORMAL) CBC with auto differential (02/08/2025 12:05 PM SENIOR INFORMATION SECURITY ARCHITECT) Pathologist [facility] WBC 11.29(H) 3.80 - 9.90 K/cumm Hgb 13.1 13.0 - 17.5 g/dL [facility] ([place]) Hct 39.5 38.9 - 50.3 % [facility] ([place]) Plt 182 150 - 400 K/cumm [facility] ([place]) MPV 9.9 9.1 - 12.3 fL [facility] ([place]) RBC 4.43 4.30 - 5.80 M/cumm [facility] ([place]) MCV 89.2 81.3 - 96.4 fL [facility] ([place]) MCH 29.6 27.1 - 33.3 pg [facility] ([place]) MCHC 33.2 32.3 - 35.7 g/dL [facility] ([place]) RDW CV 15.8(H) 11.1 - 14.9 % [facility] ([place]) RDW SD 50.5(H) 35.7 - 48.1 fL [facility] ([place]) NRBC abs 0.00 0.00 - 0.01 K/cumm [facility] ([place]) Blood 02/08/2025 12:0 5 PM SENIOR INFORMATION SECURITY ARCHITECT 02/08/2025 12:14 PM SENIOR INFORMATION SECURITY ARCHITECT Lenora Cooley MD LAB BL OOD ORDERABLES Final Result [facility] (DAVION) 1 [facility] [place] [address] * Hepatitis C antibody Blood (02/08/2025 12:05 PM SENIOR INFORMATION SECURITY ARCHITECT) Pathologist [facility] Hep C Ab Nonreactive Nonreactive Comment: Interpretive Data Nonreactive: Antibodies to HCV [...] Interpretive data was last revised on 2019. Testing performed by: [facility], [address] [place] [address]., [address] Blood 02/08/2025 12:0 5 PM SENIOR INFORMATION SECURITY ARCHITECT 02/08/2025 3:04 PM SENIOR INFORMATION SECURITY ARCHITECT Lenora Cooley MD LAB MICROBIOLOGY - GENERAL ORDERABLES Final Result Performing Organization Address City/[facility] Co de Phone Number ALICIA BOWMAN (CHANDLER) [address] [place] [address] [employer] [place] [address] * (ABNORMAL) Cyclic citrul peptide antibody, IgG (02/08/2025 12:05 PM SENIOR INFORMATION SECURITY ARCHITECT) CCP Ab >300.0(H) <=2.9 units/mL Comment: Interpretive data Negative: <3 units/mL Positive: > or equal to 3 units/mL Current interpretive data was last revised on 2016. Testing performed by: [facility], [address] [place] [address]., [address] Blood 02/08/2025 12:0 5 PM SENIOR INFORMATION SECURITY ARCHITECT 02/08/2025 2:20 PM SENIOR INFORMATION SECURITY ARCHITECT Lenora Cooley MD LAB BL OOD ORDERABLES Final Result ALICIA BOWMAN (CHANDLER) [address] [place] [address] [employer] [place] [address] * Hepatitis B core antibody, total Blood (02/08/2025 12:05 PM SENIOR INFORMATION SECURITY ARCHITECT) Hep B core IgG/IgM Nonreactive Nonreactive Comment:Testing performed by : [facility], 1 [place]., [address] Blood 02/08/2025 12:0 5 PM SENIOR INFORMATION SECURITY ARCHITECT 02/08/2025 2:23 PM SENIOR INFORMATION SECURITY ARCHITECT Lenora Cooley MD LAB MICROBIOLOGY - GENERAL ORDERABLES Final Result ALICIA BOWMAN (CHANDLER) 1 [facility] [place] [address] * Hepatitis B surface antibody (immune status) Blood (02/08/2025 12:05 PM SENIOR INFORMATION SECURITY ARCHITECT) HBsAb (immune status) Nonreactive Comment: Interpretive Data Nonreactive: This result is consistent with a lack of immunity to Hepatitis B Virus when used in the setting of routine screening. Equivocal: The immune status of the individual should be further assessed, if appropriate, after consideration of clinical status, risk factors, and additional diagnostic information. Reactive: This result is consistent with immunity to Hepatitis B Virus when used in the setting of routine screening. Current interpretive data was last revised on 19. Testing performed by: [address] [address] Blood 02/08/2025 12:0 5 PM SENIOR INFORMATION SECURITY ARCHITECT 02/08/2025 3:04 PM SENIOR INFORMATION SECURITY ARCHITECT Lenora Cooley MD LAB MICROBIOLOGY - GENERAL ORDERABLES Final Result Performing Organization Address City/[facility]/ZIP Co de Phone Number [facility] (DAVION) 1 [place] [address] * Hepatitis B Surface Antigen Blood (02/08/2025 12:05 PM SENIOR INFORMATION SECURITY ARCHITECT) HepBsAg Nonreactive Nonreactive Comment:Testing performed by : [address] [address] Blood 02/08/2025 12:0 5 PM SENIOR INFORMATION SECURITY ARCHITECT 02/08/2025 3:04 PM SENIOR INFORMATION SECURITY ARCHITECT Result [facility] Lenora Cooley MD LAB MICROBIOLOGY - GENERAL ORDERABLES Final Result Performing Organization Address City/[facility]/ZIP Co de Phone Number ALICIA BOWMAN (CHANDLER) 1 [place] [address] * (ABNORMAL) Erythrocyte sedimentation rate (02/08/2025 12:05 PM SENIOR INFORMATION SECURITY ARCHITECT) Pathologist [facility] Erythrocyte sedimentation rate 38(H) 1 - 20 mm/hr Blood 02/08/2025 12:0 5 PM SENIOR INFORMATION SECURITY ARCHITECT 02/08/2025 12:14 PM SENIOR INFORMATION SECURITY ARCHITECT Result [facility] Lenora Cooley MD LAB BL OOD ORDERABLES Final Result Performing Organization Address [facility] Co de Phone Number ALICIA BOWMAN (CHANDLER) 1 [place] [address] * (ABNORMAL) Rheumatoid factor (02/08/2025 12:05 PM SENIOR INFORMATION SECURITY ARCHITECT) Pathologist [facility] Rheumatoid factor, quant 595(H) <=15 IUnits/mL Comment:Testing performed by : [facility], [address] [place] [address]., [address] Blood 02/08/2025 12:0 5 PM SENIOR INFORMATION SECURITY ARCHITECT 02/08/2025 3:04 PM SENIOR INFORMATION SECURITY ARCHITECT Result [facility] Lenora Cooley MD LAB BL OOD ORDERABLES Final Result Performing Organization Address [facility] Co de Phone Number ALICIA BOWMAN (CHANDLER) 1 [place] [address] * (ABNORMAL) CRP (acute phase) (02/08/2025 12:05 PM SENIOR INFORMATION SECURITY ARCHITECT) Pathologist [facility] CRP 11.7(H) <=10.0 mg/L Blood 02/08/2025 12:0 5 PM SENIOR INFORMATION SECURITY ARCHITECT 02/08/2025 12:14 PM SENIOR INFORMATION SECURITY ARCHITECT Lenora Cooley MD LAB BL OOD ORDERABLES Final Result ALICIA BOWMAN (DAVION) 1 [facility] Department [place] [address] * (ABNORMAL) Comprehensive metabolic panel (02/08/2025 12:05 PM SENIOR INFORMATION SECURITY ARCHITECT) Sodium 137 135 - 145 mmol/L Potassium, pl 4.1 3.3 - 4.9 mmol/L [facility] (DAVION) Chloride 101 97 - 110 mmol/L [facility] ([place]) CO2 26 22 - 32 mmol/L [facility] ([place]) Anion gap 10 2 - 15 mmol/L [facility] ([place]) BUN 25 6 - 25 mg/dL [facility] ([place]) Creatinine 1.93(H) 0.80 - 1.30 mg/dL [facility] ([place]) Glucose 98 70 - 199 mg/dL [facility] (DAVION) Comment: Interpretive Data Fasting glucose >/= 126 [...] interpretive data was last revised 2022. Calcium 9.6 8.5 - 10.3 mg/dL [facility] (DA[place]ION) Bilirubin, total 0.4 0.1 - 1.2 mg/dL [facility] ([place]) Protein, pl 6.3(L) 6.5 - 8.5 g/dL [facility] ([place]) Albumin 3.7 3.5 - 5.0 g/dL [facility] ([place]) Alk phos 172(H) 40 - 130 Units/L [facility] ([place]) ALT 28 7 - 55 Units/L [facility] ([place]) AST 34 10 - 50 Units/L [facility] (DA[place]ION) Blood 02/08/2025 12:0 5 PM SENIOR INFORMATION SECURITY ARCHITECT 02/08/2025 12:14 PM SENIOR INFORMATION SECURITY ARCHITECT us Lenora Cooley MD LAB BL OOD ORDERABLES Final Result [facility] (CHANDLER) 1 [facility] Department [place] [address] * CT Chest Abdomen Pelvis WO Contrast (01/21/2023 11:07 AM CDT) Anatomical Region Laterality Modality Body N/A Computed Tomogra phy us Arpit Han MD PhD IMG CT PROCEDURES Prudence l Result from Last 3 Months or Most Recently Relevant to Health Maintenance [place] [address] [facility] MEDICARE [facility] MEDICARE SUPPLEMENT MEDICARE [facility] MEDICARE SUPPLEMENT Advance Directives For more information, please contact: [phone] * Full Code (Latest Code Status on [...] 12:19 PM 03/03/2018 4:40 PM Care Teams Therapy Site Coordinator Relationship Specialty Start Date End Date Dre Zavaleta DO [address] [place] [address] PCP - General Internal Medicine 01/14/24 [place] [address] [address] [address] Consulting Physician Pulmonary Disease 06/25/20 Arpit Han MD PhD [address] [place] [address] Radiation Oncologist Radiation Oncology 10/04/21 [place] [address] [address] [address] Referring Physician Pulmonary Disease 10/04/21 Harvey Alex MD [address] [place] [address] Referring Physician Hematology 02/01/22
--- OUTSIDE RECORDS SUMMARY | 2025-02-10 19:39 | XMS_ITS | Encounter Summary ---
Author Organization [facility] Health Address [address] [place] [address] Care Team Providers Care Step Finisher Name Role Phone Julius Encinas MD Primary Care Provider [phone] Valeriy Lawson MD Unavailable [phone] Encounter Details Date Type Department Care Team (Late st Contact Info) Description 02/10/2014 [facility] Outpatient Visit EXTERNAL NON-[facility] DEPT Valeriy Lawson MD [address] [place] [id number] Social History Tobacco Use Types Packs/Day Years Used Date Smoking Tobacco: Former Cigarettes 0 09/20/1992 - 09/20/2000 Smokeless Tobacco: Never Comments:unk date and mon Alcohol Use Standard Drinks/Week Comments No 0 (1 standard drink = 0.6 oz pur e alcohol) Sex and Gender Information Value Date Recorded Sex Assigned at Not on file Legal Sex Male 4:21 AM MICROSTRATEGY ARCHITECT Gender Identity Not on file Sexual Orientation Not on file documented as of this encounter Plan of Treatment Not on file documented as of this encounter Visit Diagnoses Not on filedocumented in this encounter Care Teams Step Finisher Relationship Specialty Start Date End Date Julius Encinas MD [address] [place] [address] PCP - General 06/10/08 Valeriy Lawson MD [address] [place] [address] 11/13/09 documented as of this encounter
--- OUTSIDE RECORDS SUMMARY | 2025-02-10 19:39 | XMS_ITS | Encounter Summary ---
Author Organization [facility] Address [address] [place] [address] Care Team Providers Care Barrel Lathe Operator Outside Name Role Phone Julius Encinas MD Primary Care Provider [phone] Valeriy Lawson MD Unavailable [phone] Encounter Details Date Type Department Care Team (Late st Contact Info) Description 04/13/2014 Therapy Visit EXTERNAL NON-[facility] DEPT Unknown, Provider Social [...] on file Legal Sex Male 4:21 AM SURGICAL SCRUB TECH Gender Identity Not on file Sexual Orientation Not on file documented as of this encounter Plan of Treatment Not on file documented as of this encounter Visit Diagnoses Not on filedocumented in this encounter Care Teams Barrel Lathe Operator Outside Relationship Specialty Start Date End Date Julius Encinas MD [address] [employer] [place] [address] PCP - General 06/10/08 Valeriy Lawson MD [address] [place] [address] 11/13/09 documented as of this encounter
--- OUTSIDE RECORDS SUMMARY | 2025-02-10 19:39 | XMS_ITS | Encounter Summary ---
Author Organization [facility] Address [address] [place] [address] Care Team Providers Care Show Girl Name Role Phone Julius Encinas MD Primary Care Provider [phone] Valeriy Lawson MD Unavailable [phone] Encounter Details Date Type Department Care Team (Late st Contact Info) Description 02/11/2014 Therapy Visit EXTERNAL NON-[facility] DEPT Valeriy Lawson MD [address] [place] [address] Social History Tobacco Use Types Packs/Day Years Used Date Smoking Tobacco: Former Cigarettes 0 09/20/1992 - 09/20/2000 Smokeless Tobacco: Never Comments:unk date and mon Alcohol Use Standard Drinks/Week Comments No 0 (1 standard drink = 0.6 oz pur e alcohol) Sex and Gender Information Value Date Recorded Sex Assigned at Not on file Legal 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
--- OUTSIDE RECORDS SUMMARY | 2025-02-10 19:40 | XMS_ITS | Clinical Summary ---
Author Organization [facility] Address [address] [place] [address] Care Team Providers Care Search Specialist Name Role Phone Julius Encinas MD Primary Care Provider [phone] Valeriy Lawson MD Unavailable [phone] Source Comments [facility],non-owned Affiliates and Associated Physician Practices is amultiple site organization consisting of ambulatory clinics and hospital sitesin [place], [place], [place] and [place]. This disclosure is being madepursuant to the Care Everywhere program and may not contain all information available regarding this patient. Last updated 17.[facility] Allergies Active Allergy Reactions Criticality Noted [...] VITAMINS PO Take by mouth daily. 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 Gender Identity Not on file Sexual [...] patient's age to complete this topic Insurance * Guarantor: Meg Dilan E Account Type Relation to Patient Date of Phone Billing Address Personal/Family Self [address] [place] [phone] [facility] Address: [id number] MEDICARE ANTHEM Member Subscriber Plan / Payer (Ef fective for All Dates) Name:Dilan Weaver Relation to Subscriber:Self Name:Dilan Weaver Payer ID:[id number] (NAIC) Type:Commercial Address: [place] [id number] SELF PAY NO INSURANCE Member Subscriber Plan / Payer (Ef fective for All Dates) Name:MegDilan Clayton Member ID:Not on file Relation to Subscriber:Not on file Name:OHBREANNEDILAN Subscriber ID:Not on file (Home) Address: [address] [place] [address] Payer ID:Not on file Group ID:Not on file Type:Self Pay Address: [place], [place] MEDICARE [facility] Care Teams Search Specialist Relationship Specialty Start Date End Date Julius Encinas MD [address] [place] [address] PCP - General 06/10/08 Valeriy Lawson MD [address] [place] [address] 11/13/09
--- OUTSIDE RECORDS SUMMARY | 2025-02-10 19:40 | XMS_ITS | Clinical Summary ---
Author Organization [facility] Address [address] [place] [address] Care Team Providers Care Color Paste Mixing Supervisor Name Role Phone Unavailable Primary Care Provider [...]
--- OUTSIDE RECORDS SUMMARY | 2025-02-10 19:40 | XMS_ITS | Encounter Summary ---
Author Organization [facility] Address [address] [facility] [place] [address] Care Team Providers Care Grants Officer Name Role Phone Julius Encinas MD Primary Care Provider [phone] Valeriy Lawson MD Unavailable [phone] Encounter Details Date Type Department Care Team (Late st Contact Info) Description 08/24/2010 [facility] Outpatient Visit [facility] - Family Medicine [address] [place] [phone] Valeriy Lawson MD [address] [place], [place] [id number] Social History Tobacco Use Types Packs/Day Years Used Date Smoking Tobacco: Former Cigarettes 0 09/20/1992 - 09/20/2000 Smokeless Tobacco: Never Comments:unk date and mon Alcohol Use Standard Drinks/Week Comments No 0 (1 standard drink = 0.6 oz pur e alcohol) Sex and Gender Information Value Date Recorded Sex Assigned at Not on file 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
--- OUTSIDE RECORDS SUMMARY | 2025-02-10 19:40 | XMS_ITS | Encounter Summary ---
Author Organization [facility] [employer] Address [address] [place] [address] Care Team Providers Care Etl Architect Name Role Phone Dre Zavaleta DO Primary Care Provider [phone] Encounter Details Date Type Department Care Team (Late Contact Info) Description 02/09/2025 Orders Only [facility] Oncology and Hematology [facility] [address] [place] [address] Harvey Alex MD [address] [place], [place] [address] [address] [place] [address] Social History Tobacco Use Types Packs/Day Years Used Date Smoking Tobacco: Former Cigarettes 2 40 1 198 - 4166 Alcohol Use Standard Drinks/Week Comments Yes 0 (1 standard drink = 0.6 oz pur e alcohol) Sex and Gender Information Value Date Recorded Sex Assigned at Not on file Legal Sex Male 10:35 AM SENIOR MAINFRAME PROGRAMMER ANALYST Gender Identity Not on file Sexual Orientation Not on file documented as of this encounter Plan of Treatment Upcoming Encounters Date Type Department Care Team (Late Contact Info) Description 02/14/2025 10:15 AM SENIOR MAINFRAME PROGRAMMER ANALYST Office Visit [facility] Oncology [facility] Hematology [facility] [address] [place] [address] Harvey Alex MD [address] [employer] [address] [place] [phone] documented as of this encounter Procedures Procedure Name Priority Date/Time Associated Diagnosis Comments CT CHEST ABDOMEN PELVIS WO CONT Routine 02/08/2025 11:29 AM SENIOR MAINFRAME PROGRAMMER ANALYST documented in this encounter Results * CT CHEST ABDOMEN PELVIS WO CONT (02/08/2025 11:29 AM SENIOR MAINFRAME PROGRAMMER ANALYST) Anatomical Region Laterality Modality Chest Computed Tomogra phy Harvey Alex MD CT ORDERABLES Final Result documented in this encounter Visit Diagnoses Not on filedocumented in this encounter Care Teams Etl Architect Relationship Specialty Start Date End Date Dre Zavaleta DO [address] [facility] [address] [place] [phone] PCP - General Internal Medicine 08/11/24 documented as of this encounter
--- OUTSIDE RECORDS SUMMARY | 2025-02-10 19:40 | XMS_ITS | Encounter Summary ---
Author Organization [facility] Healthcare Address [address] [place] [address] Care Team Providers Care Senior Enlisted Advisor Name Role Phone Zia Mercedes MD Unavailable [phone] Arpit patton MD PhD Unavailable [phone] Zia Mercedes MD Unavailable [phone] Harvey Alex MD Unavailable [phone] Dre Zavaleta DO Primary Care Provider [phone] Reason for Visit * Reason Onset Date Comments Prior Auth 02/10/2025 Encounter Details Date Type Department Care Team (Late st Contact Info) Description 02/10/2025 Telephone [facility] [address] [place] [phone] Morgan Mora RPh Prior Auth Social History Tobacco Use Types Packs/Day Years [...] on file Legal Sex Male 1:51 AM MEDICAID NURSE Gender Identity Not on file Sexual Orientation Not on file documented as of this encounter Miscellaneous Notes * Telephone Encounter - Morgan Mora RPh - 02/10/2025 2:36 PM CST [facility] - Prescription Status Patient: Dilan Weaver : 1945 Medication: Enbrel 50 mg/mL Sureclick pens Quantity: 4 pens Day Supply: 28 days Insurance Plan: [employer] Prior Authorization Required: Yes PA Reference: [id number] PA Status: DENIED Denial date: 02/10/2025 Notes to Office: PA denied. Patient needs to have tried a preferred Adalimumab product (Humira, Cyltezo, or Hyrimoz)and Rinvoq before insurance will consider Enbrel. Completed by: Morgan Mora RPh CAID NURSE documented in this encounter Plan of Treatment Not on file documented as of this encounter Goals Goal Patient Goal Type Associated Problems Recent Progress Patient-Stated? Author [facility] Estelita Erickson, RN Note: Pt would like to complete ADLs, ride motorcycle with minimal pain. documented as of this encounter Visit Diagnoses Not on filedocumented in this encounter Care Teams Senior Enlisted Advisor Relationship Specialty Start Date End Date Dre Zavaleta DO [address] [place] [phone] PCP - General Internal Medicine 01/14/24 [place] [address] [address] [facility] [address] [place] [address] Consulting Physician Pulmonary Disease 06/25/20 Arpit Han MD PhD [address] [place] [address] Radiation Oncologist Radiation Oncology 10/04/21 [place] [address] [address] [facility] [address] [place] [address] Referring Physician Pulmonary Disease 10/04/21 Harvey Alex MD [address] [place] [address] Referring Physician Hematology 02/01/22 documented as of this encounter
--- OUTSIDE RECORDS SUMMARY | 2025-02-10 19:40 | XMS_ITS | Clinical Summary ---
Author Organization [facility] Address [address] [place] [address] Care Team Providers Care Dump Motorman Name Role Phone Dre Zavaleta DO Primary Care Provider [phone] Allergies Active Allergy Reactions Criticality Noted Date [...] take 0.5 tablet PO daily 1 Active Struthers-3 Fatty Acids 1,000 mg Capsule Take 1,000 [...] H. Active fluticasone propionate (FLONASE) 50 mcg/spray [place], Suspension nasal inhaler Administer 2 Sprays in [...] Encounters Date Type Department Care Team Description 02/09/2025 Orders Only [facility] Oncology and Hematology - [place] [address] [place] [phone] Harvey Alex MD 12/09/2024 Orders Only [facility]cology and Hematology - [place] [address] [place] [phone] Harvey Alex MD 12/08/2024 Orders Only Initial Department [address] [place]ANCINI: [place] [address] Provider, Historical 11/24/2024 Telephone [facility] Oncology and Hematology - [place] [address] [place] [phone] Harvey Alex MD Requesting Sooner Appointment (Per olena- patient should not need a sooner appt. ) 11/22/2024 Telephone [facility] Oncology and Hematology - [address] [place] [phone] Harvey Alex MD Lab Results 11/18/2024 Orders Only [facility] and Hematology - [place] [address] [place] [address] Harvey Alex MD 11/18/2024 Abstract [facility] Oncology and Hematology - [place] [address] [place] [address] Harvey Alex MD 11/17/2024 Telephone [facility] Oncology and Hematology - [address] [place] [phone] Harvey Alex MD Lab Questions from Last [...] Smoking Tobacco: Former Cigarettes 2 40 1 548 - 1998 Tobacco Cessation:Counseling Given: Not Answered Alcohol Use Standard Drinks/Week Comments Yes 0 (1 standard drink = 0.6 oz pur e alcohol) Sex and Gender Information Value Date Recorded Sex Assigned at Not on file Legal Sex Male 10:35 AM CAKE STRIPPER Gender Identity Not on file Sexual Orientation [...] st Contact Info) Description 02/14/2025 10:15 AM CAKE STRIPPER Office Visit [facility] Oncology and Hematology [facility] [address] [facility] [address] [place] [address] Harvey Alex MD [address] [place] [address] Health Maintenance Due Date Last [...] PELVIS WO CONT Routine 02/08/2025 11:29 AM CAKE STRIPPER CBC WITH AUTODIFFERENTIAL Routine 12/08/2024 11:40 AM CDT HEMOGLOBIN A1C Routine 12/08/2024 8:23 AM CDT CBC WITHOUT DIFFERENTIAL Routine 025 8:23 AM CDT IRON, TIBC, AND PERCENT SATURATION Routine 12/08/2024 8:23 AM CDT from Last 3 Months Results * CT CHEST ABDOMEN PELVIS WO CONT (02/08/2025 11:29 AM CAKE STRIPPER) Anatomical Region Laterality Modality Chest Computed Tomogra phy Harvey Alex MD CT ORDERABLES Final Result * CBC WITH AUTODIFFERENTIAL (12/08/2024 11:40 AM CDT) Blood us Harvey Alex MD HEMATOLOGY ORDERABLES Final Res ult * IRON, TIBC, AND PERCENT SATURATION (12/08/2024 8:23 AM CDT) IRON 128 50 - 180 mcg/dL [facility] TIBC 358 250 - 425 mcg/dL (calc) [facility] IRON % SATURATION 36 20 - 48 % (calc) [facility] Comment: [facility] [address] [place] [address] 12/08/2024 8:23 AM CDT 12/08/2024 8:24 AM CDT [facility] CHEMISTRY ORDERABLES Final Res ult [facility] [phone] [facility] [address] [facility] [place] [address] * (ABNORMAL) CBC WITHOUT DIFFERENTIAL (12/08/2024 8:23 AM CDT) WBC 10.0 3.8 - 10.8 Thousand/u L [...] - 12.5 fL [facility] Comment: [facility] [address] [place] [address] 12/08/2024 8:23 AM CDT 12/08/2024 8:24 AM CDT us Valeriy Marte ANP HEMATOLOGY ORDERABLES Final Re sult [facility] [phone] [facility] [address] [place] [address] * HEMOGLOBIN A1C (12/08/2024 8:23 AM CDT) HEMOGLOBIN A1C 5.0 <5.7 % of total Hgb [facility] Comment: For the purpose of screening for the presence of diabetes: <5.7% Consistent with the absence of diabetes 5.7-6.4% Consistent with increased risk for diabetes (prediabetes) > or =6.5% Consistent with diabetes This assay result is consistent with a decreased risk of diabetes. Currently, no consensus exists regarding use of hemoglobin A1c for diagnosis of diabetes in children. According to [place] Diabetes Association (ADA) guidelines, hemoglobin A1c <7.0% represents optimal control in non- diabetic patients. Different metrics may apply to specific patient populations. Standards of Medical Care in Diabetes(ADA). FASTING:YES FASTING: YES [facility] [address] [place] [phone] 12/08/2024 8:23 AM CDT 12/08/2024 8:24 AM CDT us Valeriy Marte ANP CHEMISTRY ORDERABLES Final Res ult [facility] [phone] [facility] [address] [place] [address] from Last 3 Months Insurance MEDICARE PART A AND B [facility] SUPP MEDICARE PART A AND B [facility] SU[facility] Care Teams Dump Motorman Relationship Specialty Start Date End Date Dre Zavaleta DO [address] [facility] [address] [place] [address] PCP - General Internal Medicine 08/11/24
== END 2025-02-10 12:46 | disposition home or self-care (01) ==
LOC: ANHLAB 12:47
PROVIDERS: PCP Nurse Practitioner; Visit Provider Internal Medicine Hematology & Oncology
DX: C34.12 Malignant neoplasm of upper lobe, left bronchus or lung (principal)
CPT/HCPCS: 36415; 80053; 83615; 85025

== ENCOUNTER 2025-02-17 10:51 | Outpatient (CLI) | payer MEDICARE, SELFPAY ==
--- NOTE | ~2025-02-17 | XR_ITS ---
Examination: XR abdomen/kub 1V Clinical History: N18.32 - Chronic kidney disease, stage 3b Comparison: CT chest abdomen pelvis 02/08/2025 Technique: 2 views supine AP abdomen Findings: Scattered colonic gas and stool. Scattered small bowel gas. No abnormal abdominal calcifications. No acute bony abnormality.. IMPRESSION: 1. No acute abnormality noted. Reviewed, dictated and finalized at location R. PRESSER
[2025-02-17 11:32] LABS: Hematocrit 41.1 % (42.0-52.0); Hemoglobin 13.6 g/dL (14.0-18.0); Mean Corpuscular HGB Conc 33.1 g/dl (32-36); Mean Corpuscular Hemoglobin 29.9 pg (26-34); Mean Corpuscular Volume 90.3 fl (80-100); Platelet Count Result 191 k/mm3 (150-375); Red Blood Count 4.55 M/mm3 (4.6-6.20); White Blood Count 12.5 K/mm3 (4.5-10.0)
[2025-02-17 11:38] LABS: Add Urine Microscopic? NO; Appearance Urine Clear (Clear); Glucose Urine UA Negative (Negative); Leukocyte Esterase Ur Negative LEU/UL (Negative); Nitrate Urine Negative (Negative); Specific Grav Ur 1.018 (1.001-1.035)
[2025-02-17 11:59] LABS: Albumin Level 3.5 g/dL (3.5-5.1); Anion Gap 9 mmol/L (4-12); Blood Urea Nitrogen 31 mg/dL (9-20); Calcium 9.2 mg/dL (8.4-10.2); Carbon Dioxide 24 mmol/L (22-30); Chloride 99 mmol/L (98-107); Creatine Kinase 38 U/L (55-170); Estimated Glomerular Filt Rate 37; Glucose 108 mg/dL (65-110); Potassium 3.7 mmol/L (3.4-5.0); Sodium 132 mmol/L (137-145); Uric Acid 8.5 mg/dL (3.5-8.5)
[2025-02-17 12:11] LABS: Total Protein Urine Random < 5 mg/dL; Ur Ttl Prot Creatinine Ratio < 0.04 mg/mg (0-0.20)
[2025-02-17 12:11] LABS: Parathyroid Intact 26.0 pg/mL (14.5-75.2)
[2025-02-18 18:08] LABS: ANA by IFA Rfx Titer/Pattern Negative (.)
[2025-02-21 16:08] LABS: Immunoglobulin A, Qn 383 mg/dL (61-437); Immunoglobulin G, Qn 952 mg/dL (603-1613); Immunoglobulin M, Qn 138 mg/dL (15-143)
== END 2025-02-17 10:52 | disposition home or self-care (01) ==
PROVIDERS: PCP Nurse Practitioner; Visit Provider Internal Medicine Nephrology
DX: N18.32 Chronic kidney disease, stage 3b (principal); N20.0 Calculus of kidney
CPT/HCPCS: 36415; 74018; 80069; 81003; 82550; 82570; 82784; 83970; 84156; 84550; 85027; 85652; 86038; 86160; 86162; 86334; 86335

== ENCOUNTER 2025-02-23 09:34 | Outpatient (CLI) | payer MEDICARE, SELFPAY ==
--- NOTE | ~2025-02-23 | US_ITS ---
EXAMINATION: US renal BI, 02/23/2025 9:47 SNAP SHEARER HISTORY: N18.32 - Chronic kidney disease, stage 3b Comparison: None Technique: Luna-scale and color Doppler images were obtained. Findings: KIDNEYS: The renal cortices are slightly deviated echogenic, there are no solid masses, cysts or calculi, no hydronephrosis Right Kidney: Right kidney 10.5 x 5.4 x 5 cm. Left Kidney: Left kidney 10.5 x 4.9 x 6 cm. Bladder: The bladder is unremarkable. . Impression: Mild medical renal disease Reviewed, dictated and finalized at location P. SHEARER Impression: Mild medical renal disease
== END 2025-02-23 09:35 | disposition home or self-care (01) ==
PROVIDERS: PCP Nurse Practitioner; Visit Provider Internal Medicine Nephrology
DX: N18.32 Chronic kidney disease, stage 3b (principal); N20.0 Calculus of kidney
CPT/HCPCS: 76770